=== PATIENT | male | born 1955 | race Caucasian/White ===

== ENCOUNTER 2019-12-09 11:04 | Inpatient (IN) | payer MEDICARE, MEDICAID, SELFPAY ==
[2019-12-09] VITALS (8 sets, daily range): BP systolic 93–137; BP diastolic 48–86; PULSE 66–102; RESP 16–24; TEMP 36.7–38.8; O2SAT 87–100; BMI 28.4; BMI 28.3
--- NOTE | 2019-12-09 11:38 | XR_ITS ---
EXAMINATION: XR CHEST CLINICAL INFORMATION: Fever. Concern for pneumonia. COMPARISON: CT chest 07/23/2019 TECHNIQUE: Frontal view of the chest was obtained. FINDINGS: There is a patchy density seen in the right upper mid and lower lobe suggestive of likely new patchy infiltrates. The left lung remains clear. Heart size and pulmonary vascularity is normal. No gross bony abnormality seen. IMPRESSION: Patchy right lung infiltrate.
--- NOTE | 2019-12-09 11:40 | ED.NAVMDI ---
HPI - Nausea/Vomiting/Diarrhea General Chief complaint: Nausea/Vomiting/Diarrhea Stated complaint: N/V FOR HOURS, UNABLE TO KEEP ANYTHING DOWN Time Seen by Provider: 12/09/19 11:12 Source: EMS Mode of arrival: EMS Limitations: physical limitation and other (non-verbal at baseline) History of Present Illness HPI Narrative: 64 y/o male with history of seizures, psychosis, BPH, GERD, seizures, hx asp pna, constipation who is non-verbal at baseline is presenting with vomiting from assisted living. He was noted to be febrile to 101 on arrival with SpO2 92%. He is intermittently coughing. Concern for possible aspiration pneumonia. History is very limited. MD elicited complaint: nausea and vomiting Associated nausea: Yes Related Data Allergies Allergy/AdvReac Type Severity Reaction Status Date / Time haloperidol [From HALDOL] AdvReac Unknown UNKNOWN Verified 12/09/19 11:22 metoclopramide [From REGLAN] AdvReac Unknown UNKNOWN Verified 12/09/19 11:22 Review of Systems Review of Systems: Yes Unobtainable due to mental condition and Unobtainable due to mental status Gastrointestinal: Gastrointestinal: Reports nausea PMFSH Past Medical History Medical History Anemia Bipolar 1 disorder Chronic renal disease GERD (gastroesophageal reflux disease) Hiatal hernia Hydrocele Hyperlipemia Hypertension OCD (obsessive compulsive disorder) Social History Social History Alcohol intake: never Smoking Status: Unknown if ever smoked Use of substances other than those prescribed or required for medical reasons: No Advance Directives: No Advance Directives Information Provided: No Physical Exam Vital Signs: Vital Signs: Vital Signs Temp Pulse Resp BP Pulse Ox 12/09/19 14:43 79 93/53 L 95 12/09/19 12:20 24 H 94 12/09/19 12:19 101.9 F H 96 100/48 L 87 L 12/09/19 11:23 101 F H 102 H 18 111/65 92 Body Mass Index 28.4 Appearance: Alert. Shaking chills. Eyes: Pupils equal, round and reactive to light. ENT: enlarged lower lip with tongue protrusion which appears chronic, dry mucus membranes, Neck: Normal inspection. Neck supple. CVS: rapid rate, regular rhythm, Pulses normal. Respiratory: No respiratory distress. Breath sounds diminished throughout Abdomen: Softly distended and nontender. +BS x4 Skin: Skin warm and dry. Normal skin color. Normal skin turgor. No rashes. Extremities: No lower extremity edema. all 4 extremities are contracted Neuro: awake and alert, tracks, does not follow commands or verbally respond Course Course Course Narrative: 64 y/o male non-verbal with history of asp pna presenting with N/V and fever 101. Coughing with SpO2 92% on arrival. Concern for recurrent asp pna. Gastroenteritis vs colitis also a possibility. Exam reveals swollen and taught scrotum wtih mild erythema, history of hydrocele. Will get U/S to assess for epididymitis as well. IV vanco/zosyn ordered for broad coverage and IVF sepsis bolus given. Labs and CXR pending. Reevaluation(s) Reevaluation #1: CXR showing RLL infiltrate, concerning for aspiration pneumonia. He has been adequately covered wtih vanco/zosyn. Will proceed with CT C/A/P given history of bowel obstructions in the past leading to vomiting. His abdomen is distended but soft on exam. Time: 13:50 Reevaluation #2: CT scan showing right sided PNA with loss of right lung volume. COVID was negative. He remains on 2L NC. SBP soft in the 90's IVF infusing. CT scan abd showed distended small bowel loops with air-fluid levels and fluid within the sigmoid colon likely ileus or anorectal narrowing or stricture. Correlate with digital exam or rectal catheter. Similar findings were seen on the previous exam 07/23/2019. Rectal exam performed and no stricture was appreciated. Hospitalist called for admission. Time: 14:58 MDM - Nausea/Vomiting/Diarrhea Lab Data Result diagrams: 12/09/19 12:02 12/09/19 12:01 Labs: Lab Results 12/09/19 12/09/19 12/09/19 Range/Units 12:01 12:01 12:02 WBC 7.9 (4.8-10.8) X10*3/uL RBC 3.90 L (4.60-5.80) X10*6/uL Hgb 11.7 L (14.0-18.0) g/dl Hct 36.2 L (42-52) % MCV 92.8 (80-98) fL MCH 30.0 (27.0-33.0) pg MCHC 32.3 (31.0-36.0) g/dl RDW 16.0 (11.0-16.0) % Plt Count 232 (160-400) X10*3/uL MPV 9.1 L (9.4-12.4) fL Immature Gran % (Auto) 0.4 (0.0-0.4) % Neut % (Auto) 91.4 H (45-73) % Lymph % (Auto) 3.5 L (20-40) % [place] % (Auto) 4.3 (2-11) % Eos % (Auto) 0.1 (0-4) % Baso % (Auto) 0.3 (0-2) % Lymph # (Auto) 0.3 L (1.2-4.9) X10*3/uL [place] # (Auto) 0.3 (0.1-1.2) X10*3/uL Eos # (Auto) 0.0 (0.0-0.4) X10*3/uL Baso # (Auto) 0.0 (0.0-0.2) X10*3/uL Abs Immat Gran (auto) 0.03 (0.00-0.03) X10*3/uL Absolute Neuts (auto) 7.2 (2.0-8.3) X10*3/uL Absolute Nucleated RBC 0.000 (0.0-0.012) X10*3/uL Nucleated RBC % (auto) 0.0 (0.0-0.2) /100WBC Smear Tech's Comments VERIFIED Sodium Cancelled 144 Potassium Cancelled 4.1 Chloride Cancelled 102 Carbon Dioxide Cancelled 30 H Anion Gap Cancelled 16 BUN Cancelled 26 H Creatinine Cancelled 1.26 Estim Creat Clear Calc Cancelled 47.2 Estimated GFR Cancelled 58 Random Glucose Cancelled 73 Lactic Acid (0.5-2.0) mmol/L Calcium Cancelled 9.4 Magnesium 2.4 (1.6-2.6) mg/dL Total Bilirubin Cancelled 0.2 Direct Bilirubin Cancelled < 0.2 AST Cancelled 20 ALT Cancelled 14 Alkaline Phosphatase Cancelled 108 Total Protein Cancelled 9.1 H Albumin Cancelled 3.9 Lipase 24 (8-78) U/L Coronavirus (PCR) (Negative) 12/09/19 12/09/19 12/09/19 Range/Units 12:02 12:02 12:42 WBC Cancelled (4.8-10.8) X10*3/uL RBC Cancelled (4.60-5.80) X10*6/uL Hgb Cancelled (14.0-18.0) g/dl Hct Cancelled (42-52) % MCV Cancelled (80-98) fL MCH Cancelled (27.0-33.0) pg MCHC Cancelled (31.0-36.0) g/dl RDW Cancelled (11.0-16.0) % Plt Count Cancelled (160-400) X10*3/uL MPV Cancelled (9.4-12.4) fL Immature Gran % (Auto) Cancelled (0.0-0.4) % Neut % (Auto) Cancelled (45-73) % Lymph % (Auto) Cancelled (20-40) % [place] % (Auto) Cancelled (2-11) % Eos % (Auto) Cancelled (0-4) % Baso % (Auto) Cancelled (0-2) % Lymph # (Auto) Cancelled (1.2-4.9) X10*3/uL [place] # (Auto) Cancelled (0.1-1.2) X10*3/uL Eos # (Auto) Cancelled (0.0-0.4) X10*3/uL Baso # (Auto) Cancelled (0.0-0.2) X10*3/uL Abs Immat Gran (auto) Cancelled (0.00-0.03) X10*3/uL Absolute Neuts (auto) Cancelled (2.0-8.3) X10*3/uL Absolute Nucleated RBC Cancelled (0.0-0.012) X10*3/uL Nucleated RBC % (auto) Cancelled (0.0-0.2) /100WBC Smear Tech's Comments Sodium Potassium Chloride Carbon Dioxide Anion Gap BUN Creatinine Estim Creat Clear Calc Estimated GFR Random Glucose Lactic Acid 2.1 H* (0.5-2.0) mmol/L Calcium Magnesium (1.6-2.6) mg/dL Total Bilirubin Direct Bilirubin AST ALT Alkaline Phosphatase Total Protein Albumin Lipase (8-78) U/L Coronavirus (PCR) NEGATIVE (Negative) Discharge Plan Discharge Clinical Impression: Aspiration pneumonia Patient Disposition: Admitted As Inpatient
--- NOTE | 2019-12-09 11:56 | US_ITS ---
EXAMINATION: US SCROTUM CLINICAL INFORMATION: Fever, scrotal swelling. COMPARISON: CT pelvis 12/09/2019 TECHNIQUE: A sonogram of the scrotum was performed assessing davis-scale appearance and color Doppler flow. Spectral Doppler analysis of the arterial and venous flow were performed in the testes bilaterally. FINDINGS: RIGHT: Right testicle measures 1.9 x 0.9 x 1.7 cm, volume 2 mL. The right testis is atrophic. There is no intratesticular mass. There is color flow seen within the testis. Optimal spectral waveforms are difficult to obtain. Right epididymis unremarkable. No hydrocele or varicocele appreciated. LEFT: Left testicle measures 5.0 x 1.9 x 2.1 cm, volume 11 mL. No focal testicular parenchymal lesions are visualized. No intratesticular mass. There is normal color flow and spectral waveform. There is a large hydrocele, approximately 7 x 7 x 11 cm. The testis is displaced to the periphery. The epididymis is not seen with certainty. Small scrotal sadie suggested during scanning. No visible varicocele. SCROTAL SKIN: No edema tracking in soft tissue planes. No dermal shadowing to suggest soft tissue gas. IMPRESSION: 1. Large left hydrocele approximately 7 x 7 x 11 cm. Unremarkable left testis. 2. Atrophic right testicle, 2 mL volume. 3. No edema or gas seen in scrotal skin.
[2019-12-09] MEDS: Acetaminophen Supp 650 MG SUPP.RECT PR (12:06)
[2019-12-09] MEDS: ondansetron HCL 4 MG/2 ML VIAL IVPUSH (12:06)
[2019-12-09] MEDS: 0.9 % Sodium Chloride 2,000 ML 999 ML IV (12:06)
[2019-12-09] MEDS: 0.9 % Sodium Chloride 1,000 ML 999 ML IVCONT ×2 (12:07→19:14)
[2019-12-09] MEDS: Piperacillin Sodium/Tazobactam 4.5 GM in 0.9 % Sodium Chloride 100 ML IV (12:09)
[2019-12-09 12:13] LABS: Basophils Percent Auto 0.3 % (0-2); Eosinophils Percent Auto 0.1 % (0-4); Hematocrit 36.2 % (42-52); Hemoglobin 11.7 g/dl (14.0-18.0); Imm Gran Abs Auto 0.03 X10*3/uL (0.00-0.03); Imm Gran Pct Auto 0.4 % (0.0-0.4); Lymphocytes Absolute Auto 0.3 X10*3/uL (1.2-4.9); Lymphocytes Percent Auto 3.5 % (20-40); MANUAL DIFF FLAG SCAN; Mean Corpuscular HGB Conc 32.3 g/dl (31.0-36.0); Mean Corpuscular Volume 92.8 fL (80-98); Mean Platelet Volume 9.1 fL (9.4-12.4); Monocytes Absolute Auto 0.3 X10*3/uL (0.1-1.2); Monocytes Percent Auto 4.3 % (2-11); Neutrophils Absolute Auto 7.2 X10*3/uL (2.0-8.3); Neutrophils Percent Auto 91.4 % (45-73); Platelet Count 232 X10*3/uL (160-400); SCAN SMEAR FLAG 1; White Blood Count 7.9 X10*3/uL (4.8-10.8)
[2019-12-09 12:42] LABS: Alanine Aminotransferase 14 U/L (0-40); Albumin Level 3.9 g/dL (3.5-5.0); Alkaline Phosphatase 108 U/L (39-117); Anion Gap 16 (12-20); Aspartate Amino Transferase 20 U/L (5-37); Bilirubin Direct < 0.2 mg/dL (0.0-0.5); Bilirubin Total 0.2 mg/dL (0.0-1.0); Blood Urea Nitrogen 26 mg/dL (9-16); Calcium 9.4 mg/dL (8.4-10.2); Carbon Dioxide 30 mmol/L (22-29); Chloride 102 mmol/L (96-108); Creatinine Clr Calc Pharmacy 47.2; Estimated Glomerular Filt Rate 58; Glucose Random 73 mg/dL (60-115); Magnesium 2.4 mg/dL (1.6-2.6); Potassium 4.1 mmol/l (3.3-5.1); Sodium 144 mmol/L (135-145); Total Protein 9.1 g/dL (6.5-8.0)
--- NOTE | 2019-12-09 12:43 | CT_ITS ---
EXAMINATION: CT CHEST, ABDOMEN AND PELVIS WITHOUT CONTRAST. CLINICAL INFORMATION: Fever, aspiration. COMPARISON: CT chest, abdomen and pelvis 07/23/2019. TECHNIQUE: 5 mm thin axial and reformatted 3 mm thin sagittal and coronal images of chest, abdomen and pelvis were obtained without contrast dated DLP 365. FINDINGS: CHEST: There is a loss of right lung volume with diffuse patchy groundglass infiltrates throughout the right lung slightly worse compared to previous study. There is patchy confluent infiltrates in the right lower lobe progressively worse compared to 07/23/2019. Superimposed aspiration pneumonia cannot be excluded. The left lung is well-expanded and clear of acute process. There is a 3 minute nodule along the left superior major fissure axial image 157/9. No additional nodules seen. There is no pleural effusion, thickening or calcification. The thyroid lobes are symmetric and normal. The central trachea and the bronchi widely patent. Heart size and the great vessels are normal caliber. There is a small reactive right pretracheal 1.1 cm lymph node axial image 22/5. No pericardial effusion seen. No abnormal lymph nodes seen in the axilla. There is diminutive right anterior chest wall secondary to loss of right lung volume. Bone windows reveal no lytic or sclerotic process seen. There is moderate ventral spondylosis throughout mid and lower dorsal spine. No lytic process. ABDOMEN AND PELVIS: The liver is homogeneous in density, normal size, shape and position. No focal lesion or intrahepatic ductal dilatation seen. Visualized spleen, pancreas and bilateral adrenal glands are unremarkable. Both kidneys are normal size, shape and position. There are punctate radiopaque calculi midpole and lower pole right kidney without caliectasis or hydronephrosis. The abdominal aorta is normal caliber. No retroperitoneal lymph nodes or mass seen. There are multiple dilated loops of distal small bowel/colon in the midabdomen extending into the rectal region where there is fluid filled distended rectum and sigmoid colon. Question anorectal stricture or narrowing. Patient is status post colectomy with anastomotic suture line along the sigmoid with small bowel The small bowel loops are normal caliber. Appendix is not visualized no free air or free fluid. Imaging to the pelvis reveals a nondistended urinary bladder to be unremarkable. There are small inguinal hernia containing soft tissue density. Rest of the anterior wall is unremarkable. Bone windows reveal no lytic or sclerotic process. There is minimal positional scoliosis. IMPRESSION: Loss of right lung volume with a patchy groundglass attenuation seen lung consistent with small airway disease. There is focal patchy consolidation right lower lobe new since the previous study suggestive of superimposed infiltrates. The left lung remains clear except for a tiny fissural nodule or lymph node. Reactive lymph node pretracheal space. No pleural effusion or thickening. Distended small bowel loops with air-fluid levels and fluid within the sigmoid colon likely ileus or anorectal narrowing or stricture. Correlate with digital exam or rectal catheter. Similar findings were seen on the previous exam 07/23/2019. Punctate nonobstructive radiopaque calculi mid and lower pole right kidney. These are stable to previous study. No free air or free fluid seen.
[2019-12-09 12:44] LABS: Lipase 24 U/L (8-78)
[2019-12-09 12:52] LABS: SLIDE REVIEW VERIFIED
--- NOTE | 2019-12-09 12:57 | PC.NURSE ---
pt off to ct
[2019-12-09 12:59] LABS: Lactic Acid 2.1 mmol/L (0.5-2.0)
[2019-12-09] MEDS: vancomycin HCL 1,000 MG in 0.9 % Sodium Chloride 250 ML 270 MG IV (13:40)
[2019-12-09 14:04] LABS: Reflex Lactate? Lactic Acid Added
[2019-12-09 14:09] LABS: SARS COV2 PCR INHOUSE NEGATIVE (Negative)
--- NOTE | 2019-12-09 17:21 | PM.IMHP ---
History of Present Illness Date of Service: 12/09/19 Chief Complaint: Vomiting This is a 64-year-old nonverbal male at baseline from [facility] who presents to the hospital accompanied by [facility] staff would reports of sudden onset of nausea and nonbloody / nonbilious vomiting which began on the day of admission. Patient does have a history of small-bowel obstruction, megacolon, chronic constpiation resulting in recurrent episodes of nausea and vomiting and subsequent aspiration pneumonia. He has been admitted to [facility] at least 3 or 4 times for the same reason. He is unable to provide any meaningful history and so history is obtained from bedside [facility] staff. She reports that she has been with him over the last several days and he has been at his baseline self particularly in regards to his bowel movements. There was no reports of any nausea or vomiting prior to this morning. Reports of any fevers or respiratory symptoms. Upon arrival to the emergency room, patient underwent basic workup which included a CT scan of the abdomen pelvis and chest. CT abdomen of the pelvis showed likely ileus but no symptoms to suggest small-bowel obstruction. CT of the chest showed right-sided opacities consistent with aspiration pneumonia. He was given broad-spectrum antibiotics and admission was requested. Review of Systems Review of Systems: Unable to perform review of systems, patient nonverbal [facility] Medical History (Updated 12/09/19 @ 17:33 by Valentín Manrique MD) Anemia Bipolar 1 disorder Chronic renal disease GERD (gastroesophageal reflux disease) Hiatal hernia Hydrocele Hyperlipemia Hypertension OCD (obsessive compulsive disorder) Pertinent family history: unable to review family history due to patient being nonverbal Surgical History (Updated 12/09/19 @ 17:30 by Valentín Manrique MD) H/O exploratory laparotomy History of colectomy Social History Alcohol intake: never Smoking Status: Unknown if ever smoked Use of substances other than those prescribed or required for medical reasons: No Advance Directives: No Advance Directives Information Provided: No Meds Allergies Allergy/AdvReac Type Severity Reaction Status Date / Time haloperidol [From HALDOL] AdvReac Unknown UNKNOWN Verified 12/09/19 11:22 metoclopramide [From REGLAN] AdvReac Unknown UNKNOWN Verified 12/09/19 11:22 Physical Exam Vital Signs and Narrative: Vital Signs: Last Vital Signs Temp 98.8 F 12/09/19 16:00 Pulse 91 12/09/19 16:00 Resp 16 12/09/19 16:00 BP 105/62 12/09/19 16:00 Pulse Ox 92 12/09/19 16:00 Body Mass Index 28.4 General - no acute distress, appears comfortable Cardiovascular - regular rate and rhythm, S1-S2 Lungs - diminished sounds on the R with scattered mild wheezing, no rales or rhonchi; L lung relatively CTA Abdomen - mild distension without rebound or guarding; hypoactive bowel sounds Extremities - no edema bilaterally Neuro - awake and alert, non-verbal skin - warm/dry Results Labs Labs: Laboratory Results - last 24 hr 12/09/19 12/09/19 12/09/19 12:01 12:01 12:02 WBC 7.9 RBC 3.90 L Hgb 11.7 L Hct 36.2 L MCV 92.8 MCH 30.0 MCHC 32.3 RDW 16.0 Plt Count 232 MPV 9.1 L Immature Gran % (Auto) 0.4 Neut % (Auto) 91.4 H Lymph % (Auto) 3.5 L [place] % (Auto) 4.3 Eos % (Auto) 0.1 Baso % (Auto) 0.3 Lymph # (Auto) 0.3 L [place] # (Auto) 0.3 Eos # (Auto) 0.0 Baso # (Auto) 0.0 Abs Immat Gran (auto) 0.03 Absolute Neuts (auto) 7.2 Absolute Nucleated RBC 0.000 Nucleated RBC % (auto) 0.0 Smear Tech's Comments VERIFIED Sodium Cancelled 144 Potassium Cancelled 4.1 Chloride Cancelled 102 Carbon Dioxide Cancelled 30 H Anion Gap Cancelled 16 BUN Cancelled 26 H Creatinine Cancelled 1.26 Estim Creat Clear Calc Cancelled 47.2 Estimated GFR Cancelled 58 Random Glucose Cancelled 73 Lactic Acid Calcium Cancelled 9.4 Magnesium 2.4 Total Bilirubin Cancelled 0.2 Direct Bilirubin Cancelled < 0.2 AST Cancelled 20 ALT Cancelled 14 Alkaline Phosphatase Cancelled 108 Total Protein Cancelled 9.1 H Albumin Cancelled 3.9 Lipase 24 Coronavirus (PCR) 12/09/19 12/09/19 12/09/19 12:02 12:02 12:42 WBC Cancelled RBC Cancelled Hgb Cancelled Hct Cancelled MCV Cancelled MCH Cancelled MCHC Cancelled RDW Cancelled Plt Count Cancelled MPV Cancelled Immature Gran % (Auto) Cancelled Neut % (Auto) Cancelled Lymph % (Auto) Cancelled [place] % (Auto) Cancelled Eos % (Auto) Cancelled Baso % (Auto) Cancelled Lymph # (Auto) Cancelled [place] # (Auto) Cancelled Eos # (Auto) Cancelled Baso # (Auto) Cancelled Abs Immat Gran (auto) Cancelled Absolute Neuts (auto) Cancelled Absolute Nucleated RBC Cancelled Nucleated RBC % (auto) Cancelled Smear Tech's Comments Sodium Potassium Chloride Carbon Dioxide Anion Gap BUN Creatinine Estim Creat Clear Calc Estimated GFR Random Glucose Lactic Acid 2.1 H* Calcium Magnesium Total Bilirubin Direct Bilirubin AST ALT Alkaline Phosphatase Total Protein Albumin Lipase Coronavirus (PCR) NEGATIVE Imaging CT scan - chest: Radiologist's impression: IMPRESSION: Loss of right lung volume with a patchy groundglass attenuation seen lung consistent with small airway disease. There is focal patchy consolidation right lower lobe new since the previous study suggestive of superimposed infiltrates. The left lung remains clear except for a tiny fissural nodule or lymph node. Reactive lymph node pretracheal space. No pleural effusion or thickening. Distended small bowel loops with air-fluid levels and fluid within the sigmoid colon likely ileus or anorectal narrowing or stricture. Correlate with digital exam or rectal catheter. Similar findings were seen on the previous exam 07/23/2019. Punctate nonobstructive radiopaque calculi mid and lower pole right kidney. These are stable to previous study. No free air or free fluid seen. Assessment and Plan (1) Aspiration pneumonia: Status: Acute (2) Severe sepsis: Status: Acute This is a 64-year-old male with a known medical history of multiple admissions relating to his chronic abdominal issues resulting in nausea and vomiting with subsequent aspiration pneumonia. He now presents with basically the same and is admitted for severe sepsis secondary to aspiration pneumonia. 1. severe sepsis secondary to aspiration pneumonia Sepsis present in ED Received 3 L IV fluids in the ED, repeat lactate pending Given vancomycin and Zosyn in the emergency room, will switch to IV Unasyn follow cultures 2. Ileus bowel regiment keep NPO tonight, diet tomorrow after being seen by speech / swallow monitor lytes will consider surgery consult if no improvement 3. Dehydration given 3L IVF in the ED, will continue with Maintenance fluids 3. Chronic medical issues med rec pending -- continue meds once completed Full Code DVT pptx, heparin HCP is sister as reported by intermediate staff
[2019-12-09 18:08] LABS: Lactic Acid 1.1 mmol/L (0.5-2.0)
[2019-12-09 18:58] LABS: Procalcitonin 0.19 ng/mL
[2019-12-09] MEDS: Ampicillin Sodium/Sulbactam Na 3 GM in 0.9 % Sodium Chloride 100 ML IV (21:35)
[2019-12-09] MEDS: Heparin Sodium,Porcine 5,000 UNIT/ML VIAL 5000 UNIT SUBCUT (21:37)
[2019-12-09] MEDS: Dextrose 5 % and 0.45 % NaCl 1,000 ML 80 ML IVCONT (21:37)
[2019-12-10] VITALS (7 sets, daily range): BP systolic 104–116; BP diastolic 60–81; PULSE 62–85; RESP 16–18; TEMP 36.3–37; O2SAT 91–97
[2019-12-10] MEDS: Ampicillin Sodium/Sulbactam Na 3 GM in 0.9 % Sodium Chloride 100 ML IV ×4 (04:33→21:07)
[2019-12-10] MEDS: Heparin Sodium,Porcine 5,000 UNIT/ML VIAL 5000 UNIT SUBCUT ×3 (04:47→21:08)
[2019-12-10 06:37] LABS: Hematocrit 28.6 % (42-52); Hemoglobin 9.1 g/dl (14.0-18.0); Mean Corpuscular HGB Conc 31.8 g/dl (31.0-36.0); Mean Corpuscular Volume 94.4 fL (80-98); Mean Platelet Volume 9.9 fL (9.4-12.4); Platelet Count 199 X10*3/uL (160-400); Red Blood Count 3.03 X10*6/uL (4.60-5.80); Red Cell Distribution Width 16.3 % (11.0-16.0); White Blood Count 10.7 X10*3/uL (4.8-10.8)
[2019-12-10 07:16] LABS: Anion Gap 12 (12-20); Blood Urea Nitrogen 19 mg/dL (9-16); Calcium 8.3 mg/dL (8.4-10.2); Carbon Dioxide 24 mmol/L (22-29); Chloride 111 mmol/L (96-108); Creatinine Clr Calc Pharmacy 61.8; Estimated Glomerular Filt Rate > 60; Glucose Random 67 mg/dL (60-115); Potassium 4.4 mmol/l (3.3-5.1); Sodium 143 mmol/L (135-145)
[2019-12-10 07:43] LABS: Band Neutrophils Percent 21 % (3-5); Lymphocytes Absolute Manual 0.6 X10*3/uL (0.6-4.8); Lymphocytes Percent Manual 6 % (20-40); Monocytes Absolute Manual 0.2 X10*3/uL (0.0-1.2); Monocytes Percent Manual 2 % (2-11); Neutrophils Absolute Manual 9.8 X10*3/uL (2.2-7.9); Neutrophils Percent Manual 71 % (45-73)
[2019-12-10 07:44] LABS: Macrocytosis 1+; RBC Morphology NOTED
[2019-12-10 07:45] LABS: Hypochromasia 1+; Platelet Estimate NORMAL (NORMAL); Platelet Morphology Comment NORMAL
[2019-12-10] MEDS: Dextrose 5 % and 0.45 % NaCl 1,000 ML 80 ML IVCONT (10:19)
--- NOTE | 2019-12-10 15:03 | P.PNIM_ITS ---
Subjective Subjective Date of Service: 12/10/19 Interval History: seen and examined this Am no n/v reported by medical staff credentialing coordinator pt remains non-verbal, but appears overall improved Review of Systems unable to ROS, pt non-verbal Physical Exam Vital Signs: Vital Signs: Vital Signs Temp Pulse Resp BP Pulse Ox 12/10/19 12:00 97.8 F 68 18 116/62 91 L 12/10/19 08:00 97.3 F 71 18 109/62 91 L 12/10/19 04:31 97.6 F 62 18 105/66 96 12/10/19 04:30 97.6 F 62 18 105/66 96 12/10/19 00:00 97.4 F 85 18 104/60 97 12/09/19 22:15 98.0 F 70 20 102/67 96 12/09/19 20:19 98.4 F 70 18 111/70 100 12/09/19 19:07 98.7 F 66 17 102/64 97 12/09/19 16:00 98.8 F 91 16 105/62 92 Body Mass Index 28.3 General - no acute distress, appears comfortable Cardiovascular - regular rate and rhythm, S1-S2 Lungs - no idstress, dim sounds Abdomen - distension improved, non-tender Extremities - no edema bilaterally Neuro - awake and alert, non-verbal skin - warm/dry Objective Data Current Medications Generic Name Dose Route Start Last Admin Trade Name Freq PRN Reason Stop Dose Admin Acetaminophen 650 mg 12/09/19 20:21 Acetaminophen Supp 650 Mg Supp.Rect NV Q6H PRN Pain, Mild (Pain Scale 1-3) Heparin Sodium (Porcine) 5,000 unit 12/09/19 22:00 12/10/19 14:49 Heparin Sodium,Porcine 5,000 Unit/Ml Vial SUBCUT 5,000 unit Q8H RODOLFO Administration Ampicillin Sodium/Sulbactam 100 mls @ 200 mls/hr 12/09/19 22:00 12/10/19 12:01 Sodium 3 gm/ Sodium Chloride IV Infused Q6H RODOLFO Infusion Dextrose/Sodium Chloride 1,000 mls @ 80 mls/hr 12/09/19 20:21 12/10/19 10:19 D51/2ns IVCONT 80 mls/hr .[id number] RODOLFO Administration Ondansetron HCl 4 mg 12/09/19 20:21 Ondansetron Hcl 4 Mg/2 Ml Vial IVPUSH Q8H PRN Nausea and Vomiting Pharmacy Consult 1 each 12/09/19 20:21 Consult Rx Perform Med Rec MISCELLANE ONCE PRN Consult order Sodium Chloride 3 ml 12/10/19 00:00 12/10/19 14:49 0.9 % Sodium Chloride Flush 3 Ml Syringe IVFLUSH Not Given QSHIFT RODOLFO Labs CBC & Chem 7: 12/10/19 05:38 12/10/19 05:38 Microbiology Microbiology Results: Microbiology 12/09/19 12:03 Blood - Venous Blood Culture - Preliminary No growth after 24 hours. 12/09/19 12:01 Blood - Venous Blood Culture - Preliminary No growth after 24 hours. Assessment and Plan (1) Aspiration pneumonia: Status: Acute Assessment and Plan: This is a 64-year-old male with a known medical history of multiple admissions relating to his chronic abdominal issues resulting in nausea and vomiting with subsequent aspiration pneumonia. He now presents with basically the same and is admitted for severe sepsis secondary to aspiration pneumonia. 1. severe sepsis secondary to aspiration pneumonia and resp. failure with hypoxia sepsis resolving, lactate normalized IV unasyn follow cultures wean o2 2. Ileus bowel regiment monitor lytes will consider surgery consult if no improvement start diet, pureed -- speech input appreciated 3. Dehydration improved, continue d5-1/2 ns until eating properly 3. Chronic medical issues med rec pending -- continue meds once completed Full Code DVT pptx, heparin HCP is sister as reported by residential staff (2) Severe sepsis: Status: Acute
--- NOTE | 2019-12-10 15:20 | MHC.CM.PN ---
Pt resides in a snf and requires assistance with care and mobility. Pt requires a gait belt and 2 assist to ambulate. CM spoke to Davi at pts snf who reports staff can transport pt back upon discharge CM attempted to reach pts guardians. Primary guardian, Aleksandra Henriquez has an out of order phone number listed ([phone]). A vm was left for pts secondary guardian, Sherry Mcconnell ([phone]). VM including pts medicare rights and CM contact information. Current DC plan is to return to the snf via snf staff
[2019-12-10] MEDS: Milk of Magnesia 30 ML ORAL.SUSP PO (21:06)
[2019-12-10] MEDS: OLANZapine 10 MG TABLET 20 MG PO (21:07)
[2019-12-10] MEDS: 0.9 % Sodium Chloride Flush 3 ML SYRINGE IVFLUSH (21:08)
[2019-12-11] VITALS: BP 104/54; PULSE 76; RESP 18; TEMP 36.8; O2SAT 94
[2019-12-11] MEDS: Dextrose 5 % and 0.45 % NaCl 1,000 ML 80 ML IVCONT (00:49)
[2019-12-11 03:10] VITALS: BP 114/59; PULSE 65; RESP 18; TEMP 36.9; O2SAT 97
[2019-12-11] MEDS: Ampicillin Sodium/Sulbactam Na 3 GM in 0.9 % Sodium Chloride 100 ML IV ×2 (05:22→09:14)
[2019-12-11] MEDS: Heparin Sodium,Porcine 5,000 UNIT/ML VIAL 5000 UNIT SUBCUT (05:23)
[2019-12-11] MEDS: Omeprazole 20 MG CAPSULE.DR 40 MG PO (05:23)
[2019-12-11 06:11] VITALS: O2SAT 97
[2019-12-11 08:00] VITALS: BP 106/58; PULSE 84; RESP 18; TEMP 36.4; O2SAT 93
[2019-12-11] MEDS: OLANZapine 10 MG TABLET PO (09:14)
[2019-12-11] MEDS: Loratadine 10 MG TABLET PO (09:14)
[2019-12-11] MEDS: Docusate Sodium 100 MG CAPSULE 200 MG PO (09:14)
[2019-12-11] MEDS: Escitalopram Oxalate 10 MG TABLET 30 MG PO (09:14)
[2019-12-11] MEDS: polyethylene glycoL 3350 17 GM POWD.PACK PO (09:15)
[2019-12-11] MEDS: Finasteride 5 MG TABLET PO (09:15)
[2019-12-11 11:02] VITALS: O2SAT 92
--- NOTE | 2019-12-11 11:18 | P.DS_ITS ---
DS: Providers Provider Date of admission: 12/09/19 17:43 Primary care physician: Tomy Rangel MD DS: Diagnosis Discharge Diagnosis (1) Severe sepsis: Status: Acute (2) Aspiration pneumonia: Status: Acute (3) Ileus: Status: Acute (4) Dehydration: Status: Acute DS: Summary Hospital Course Hospital Course: HPI: This is a 64-year-old nonverbal male at baseline from intermediate who presents to the hospital accompanied by intermediate staff would reports of sudden onset of nausea and nonbloody / nonbilious vomiting which began on the day of admission. Patient does have a history of small-bowel obstruction, megacolon, chronic constpiation resulting in recurrent episodes of nausea and vomiting and subsequent aspiration pneumonia. He has been admitted to [facility] at least 3 or 4 times for the same reason. He is unable to provide any meaningful history and so history is obtained from bedside intermediate staff. She reports that she has been with him over the last several days and he has been at his baseline self particularly in regards to his bowel movements. There was no reports of any nausea or vomiting prior to this morning. Reports of any fevers or respiratory symptoms. Upon arrival to the emergency room, patient underwent basic workup which included a CT scan of the abdomen pelvis and chest. CT abdomen of the pelvis showed likely ileus but no symptoms to suggest small-bowel obstruction. CT of the chest showed right-sided opacities consistent with aspiration pneumonia. He was given broad-spectrum antibiotics and admission was requested. Hospital course For his pneumonia -- patient was treated with IV unasyn and given supplemental o2 for his hypoxia. Over the course of 2 nights in the hospital, he had significant improvement in his respiratory status and was able to be wean to room air. He will be discharged home on PO Augmentin for aspiration pneumonia. For his ileus -- he was kept NPO over the first night and started on his usual bowel regime. His electrolytes were monitored and repleted as needed. He was initiated on his baseline diet -- pureed which he tolerated. With these measures, his ileus clinically resolved: he was tolearting diet without nausea/vomiting and moving his bowels, as well as less distention of his abdomen. He still remains as risk for recurrent aspiration which the family is aware of. Of note -- as part of this work up in the ED -- he underwent a scrotal ultrasound which showed a large L hydrocele. Patient did not have any tenderness and this can be followed clinically if indicated -- referral to urologist. Time Spent with Patient Time attestation: Total time spent providing and/or coordinating discharge services: Physical Exam Vital Signs: Vital Signs: Vital Signs Temp Pulse Resp BP Pulse Ox 12/11/19 11:02 92 12/11/19 08:00 97.6 F 84 18 106/58 L 93 12/11/19 06:11 97 12/11/19 03:10 98.5 F 65 18 114/59 L 97 12/11/19 00:00 98.3 F 76 18 104/54 L 94 12/10/19 19:13 98.0 F 72 18 112/60 12/10/19 15:26 98.6 F 74 16 110/81 93 12/10/19 12:00 97.8 F 68 18 116/62 91 L Body Mass Index 28.3 General - no acute distress, appears comfortable Cardiovascular - regular rate and rhythm, S1-S2 Lungs - normal respiratory effort, clear to auscultation bilaterally, slight dim sounds R, tolerating RA Abdomen - soft, NT, significantly less distension; +BS Extremities - no edema bilaterally Neuro - awake and alert, no focal deficits DS: Data Data Completed and Pending Labs on day of discharge: Lab Results 12/09/19 12/09/19 12/09/19 Range/Units 12:01 12:01 12:02 WBC 7.9 (4.8-10.8) X10*3/uL RBC 3.90 L (4.60-5.80) X10*6/uL Hgb 11.7 L (14.0-18.0) g/dl Hct 36.2 L (42-52) % MCV 92.8 (80-98) fL MCH 30.0 (27.0-33.0) pg MCHC 32.3 (31.0-36.0) g/dl RDW 16.0 (11.0-16.0) % Plt Count 232 (160-400) X10*3/uL MPV 9.1 L (9.4-12.4) fL Immature Gran % (Auto) 0.4 (0.0-0.4) % Neut % (Auto) 91.4 H (45-73) % Lymph % (Auto) 3.5 L (20-40) % Winkler % (Auto) 4.3 (2-11) % Eos % (Auto) 0.1 (0-4) % Baso % (Auto) 0.3 (0-2) % Lymph # (Auto) 0.3 L (1.2-4.9) X10*3/uL Winkler # (Auto) 0.3 (0.1-1.2) X10*3/uL Eos # (Auto) 0.0 (0.0-0.4) X10*3/uL Baso # (Auto) 0.0 (0.0-0.2) X10*3/uL Abs Immat Gran (auto) 0.03 (0.00-0.03) X10*3/uL Absolute Neuts (auto) 7.2 (2.0-8.3) X10*3/uL Absolute Nucleated RBC 0.000 (0.0-0.012) X10*3/uL Nucleated RBC % (auto) 0.0 (0.0-0.2) /100WBC Neutrophils % (Manual) (45-73) % Band Neutrophils % (3-5) % Lymphocytes % (Manual) (20-40) % Monocytes % (Manual) (2-11) % Abs Neuts (Manual) (2.2-7.9) X10*3/uL Lymphocytes # (Manual) (0.6-4.8) X10*3/uL Monocytes # (Manual) (0.0-1.2) X10*3/uL Platelet Estimate (NORMAL) Plt Morphology Comment RBC Morphology Hypochromasia Macrocytosis Smear Tech's Comments VERIFIED Sodium Cancelled 144 Potassium Cancelled 4.1 Chloride Cancelled 102 Carbon Dioxide Cancelled 30 H Anion Gap Cancelled 16 BUN Cancelled 26 H Creatinine Cancelled 1.26 Estim Creat Clear Calc Cancelled 47.2 Estimated GFR Cancelled 58 Random Glucose Cancelled 73 Lactic Acid (0.5-2.0) mmol/L Calcium Cancelled 9.4 Magnesium 2.4 (1.6-2.6) mg/dL Total Bilirubin Cancelled 0.2 Direct Bilirubin Cancelled < 0.2 AST Cancelled 20 ALT Cancelled 14 Alkaline Phosphatase Cancelled 108 Total Protein Cancelled 9.1 H Albumin Cancelled 3.9 Lipase 24 (8-78) U/L Procalcitonin ng/mL Coronavirus (PCR) (Negative) 12/09/19 12/09/19 12/09/19 Range/Units 12:02 12:02 12:42 WBC Cancelled (4.8-10.8) X10*3/uL RBC Cancelled (4.60-5.80) X10*6/uL Hgb Cancelled (14.0-18.0) g/dl Hct Cancelled (42-52) % MCV Cancelled (80-98) fL MCH Cancelled (27.0-33.0) pg MCHC Cancelled (31.0-36.0) g/dl RDW Cancelled (11.0-16.0) % Plt Count Cancelled (160-400) X10*3/uL MPV Cancelled (9.4-12.4) fL Immature Gran % (Auto) Cancelled (0.0-0.4) % Neut % (Auto) Cancelled (45-73) % Lymph % (Auto) Cancelled (20-40) % Winkler % (Auto) Cancelled (2-11) % Eos % (Auto) Cancelled (0-4) % Baso % (Auto) Cancelled (0-2) % Lymph # (Auto) Cancelled (1.2-4.9) X10*3/uL Winkler # (Auto) Cancelled (0.1-1.2) X10*3/uL Eos # (Auto) Cancelled (0.0-0.4) X10*3/uL Baso # (Auto) Cancelled (0.0-0.2) X10*3/uL Abs Immat Gran (auto) Cancelled (0.00-0.03) X10*3/uL Absolute Neuts (auto) Cancelled (2.0-8.3) X10*3/uL Absolute Nucleated RBC Cancelled (0.0-0.012) X10*3/uL Nucleated RBC % (auto) Cancelled (0.0-0.2) /100WBC Neutrophils % (Manual) (45-73) % Band Neutrophils % (3-5) % Lymphocytes % (Manual) (20-40) % Monocytes % (Manual) (2-11) % Abs Neuts (Manual) (2.2-7.9) X10*3/uL Lymphocytes # (Manual) (0.6-4.8) X10*3/uL Monocytes # (Manual) (0.0-1.2) X10*3/uL Platelet Estimate (NORMAL) Plt Morphology Comment RBC Morphology Hypochromasia Macrocytosis Smear Tech's Comments Sodium Potassium Chloride Carbon Dioxide Anion Gap BUN Creatinine Estim Creat Clear Calc Estimated GFR Random Glucose Lactic Acid 2.1 H* (0.5-2.0) mmol/L Calcium Magnesium (1.6-2.6) mg/dL Total Bilirubin Direct Bilirubin AST ALT Alkaline Phosphatase Total Protein Albumin Lipase (8-78) U/L Procalcitonin ng/mL Coronavirus (PCR) NEGATIVE (Negative) 12/09/19 12/09/19 12/10/19 Range/Units 17:36 18:17 05:38 WBC 10.7 (4.8-10.8) X10*3/uL RBC 3.03 L D (4.60-5.80) X10*6/uL Hgb 9.1 L D (14.0-18.0) g/dl Hct 28.6 L D (42-52) % MCV 94.4 (80-98) fL MCH 30.0 (27.0-33.0) pg MCHC 31.8 (31.0-36.0) g/dl RDW 16.3 H (11.0-16.0) % Plt Count 199 (160-400) X10*3/uL MPV 9.9 (9.4-12.4) fL Immature Gran % (Auto) Cancelled (0.0-0.4) % Neut % (Auto) Cancelled (45-73) % Lymph % (Auto) Cancelled (20-40) % Winkler % (Auto) Cancelled (2-11) % Eos % (Auto) Cancelled (0-4) % Baso % (Auto) Cancelled (0-2) % Lymph # (Auto) Cancelled (1.2-4.9) X10*3/uL Winkler # (Auto) Cancelled (0.1-1.2) X10*3/uL Eos # (Auto) Cancelled (0.0-0.4) X10*3/uL Baso # (Auto) Cancelled (0.0-0.2) X10*3/uL Abs Immat Gran (auto) Cancelled (0.00-0.03) X10*3/uL Absolute Neuts (auto) Cancelled (2.0-8.3) X10*3/uL Absolute Nucleated RBC 0.000 (0.0-0.012) X10*3/uL Nucleated RBC % (auto) 0.0 (0.0-0.2) /100WBC Neutrophils % (Manual) 71 (45-73) % Band Neutrophils % 21 H (3-5) % Lymphocytes % (Manual) 6 L (20-40) % Monocytes % (Manual) 2 (2-11) % Abs Neuts (Manual) 9.8 H (2.2-7.9) X10*3/uL Lymphocytes # (Manual) 0.6 (0.6-4.8) X10*3/uL Monocytes # (Manual) 0.2 (0.0-1.2) X10*3/uL Platelet Estimate NORMAL (NORMAL) Plt Morphology Comment NORMAL RBC Morphology NOTED Hypochromasia 1+ Macrocytosis 1+ Smear Tech's Comments Sodium Potassium Chloride Carbon Dioxide Anion Gap BUN Creatinine Estim Creat Clear Calc Estimated GFR Random Glucose Lactic Acid 1.1 (0.5-2.0) mmol/L Calcium Magnesium (1.6-2.6) mg/dL Total Bilirubin Direct Bilirubin AST ALT Alkaline Phosphatase Total Protein Albumin Lipase (8-78) U/L Procalcitonin 0.19 ng/mL Coronavirus (PCR) (Negative) 12/10/19 Range/Units 05:38 WBC (4.8-10.8) X10*3/uL RBC (4.60-5.80) X10*6/uL Hgb (14.0-18.0) g/dl Hct (42-52) % MCV (80-98) fL MCH (27.0-33.0) pg MCHC (31.0-36.0) g/dl RDW (11.0-16.0) % Plt Count (160-400) X10*3/uL MPV (9.4-12.4) fL Immature Gran % (Auto) (0.0-0.4) % Neut % (Auto) (45-73) % Lymph % (Auto) (20-40) % Winkler % (Auto) (2-11) % Eos % (Auto) (0-4) % Baso % (Auto) (0-2) % Lymph # (Auto) (1.2-4.9) X10*3/uL Winkler # (Auto) (0.1-1.2) X10*3/uL Eos # (Auto) (0.0-0.4) X10*3/uL Baso # (Auto) (0.0-0.2) X10*3/uL Abs Immat Gran (auto) (0.00-0.03) X10*3/uL Absolute Neuts (auto) (2.0-8.3) X10*3/uL Absolute Nucleated RBC (0.0-0.012) X10*3/uL Nucleated RBC % (auto) (0.0-0.2) /100WBC Neutrophils % (Manual) (45-73) % Band Neutrophils % (3-5) % Lymphocytes % (Manual) (20-40) % Monocytes % (Manual) (2-11) % Abs Neuts (Manual) (2.2-7.9) X10*3/uL Lymphocytes # (Manual) (0.6-4.8) X10*3/uL Monocytes # (Manual) (0.0-1.2) X10*3/uL Platelet Estimate (NORMAL) Plt Morphology Comment RBC Morphology Hypochromasia Macrocytosis Smear Tech's Comments Sodium 143 Potassium 4.4 Chloride 111 H Carbon Dioxide 24 Anion Gap 12 BUN 19 H Creatinine 0.96 Estim Creat Clear Calc 61.8 Estimated GFR > 60 Random Glucose 67 Lactic Acid (0.5-2.0) mmol/L Calcium 8.3 L Magnesium (1.6-2.6) mg/dL Total Bilirubin Direct Bilirubin AST ALT Alkaline Phosphatase Total Protein Albumin Lipase (8-78) U/L Procalcitonin ng/mL Coronavirus (PCR) (Negative) Imaging scrotal ultrasound: Radiologist's impression: IMPRESSION: 1. Large left hydrocele approximately 7 x 7 x 11 cm. Unremarkable left testis. 2. Atrophic right testicle, 2 mL volume. 3. No edema or gas seen in scrotal skin CT scan - chest: Radiologist's impression: IMPRESSION: Loss of right lung volume with a patchy groundglass attenuation seen lung consistent with small airway disease. There is focal patchy consolidation right lower lobe new since the previous study suggestive of superimposed infiltrates. The left lung remains clear except for a tiny fissural nodule or lymph node. Reactive lymph node pretracheal space. No pleural effusion or thickening. Distended small bowel loops with air-fluid levels and fluid within the sigmoid colon likely ileus or anorectal narrowing or stricture. Correlate with digital exam or rectal catheter. Similar findings were seen on the previous exam 07/23/2019. Punctate nonobstructive radiopaque calculi mid and lower pole right kidney. These are stable to previous study. No free air or free fluid seen. Discharge Plan Discharge Disposition: Home, Self-Care Referrals: Tomy Rangel MD [Primary Care Provider] - Discharge Medications: New amoxicillin-pot clavulanate [Augmentin] 875-125 mg tablet 1 tab PO Q12H Qty: 14 RF: 0 Continued Acid Gone Antacid 95-358 mg/15 mL suspension 10 ml PO QIDWMHS RF: 0 olanzapine 10 mg tablet 10 mg PO DAILY RF: 0 citalopram 20 mg tablet 60 mg PO DAILY RF: 0 doxazosin 8 mg tablet 8 mg PO BEDTIME RF: 0 magnesium hydroxide [Milk of Magnesia] 400 mg/5 mL suspension 30 ml PO BEDTIME RF: 0 valproic acid (as sodium salt) 250 mg/5 mL solution 1,000 mg PO BID RF: 0 docusate sodium 100 mg capsule 200 mg PO BID RF: 0 omeprazole 20 mg capsule,delayed release(DR/EC) 40 mg PO DAILY@0630 RF: 0 simethicone [Gas Relief (simethicone)] 40 mg/0.6 mL drops,suspension 40 mg PO TID@0800,1600,2000 RF: 0 polyethylene glycol 3350 17 gram/dose powder 17 g PO DAILY RF: 0 olanzapine 20 mg tablet 20 mg PO BEDTIME RF: 0 finasteride 5 mg tablet 5 mg PO DAILY RF: 0 loratadine 10 mg tablet 10 mg PO DAILY RF: 0 Amitiza 24 mcg capsule 24 mcg PO BID RF: 0 Best Fiber 3 gram/3.5 gram powder 1 packet PO BID RF: 0 Discharge Orders: Discharge Order (Routine); Ordered 12/11/19 Ordered By: Valentín Manrique Visit Report Forms: Patient Portal Discharge page Care Plan Goals: To continue feeling better. To minimize recurrent aspirations Health Concerns: Recurrent aspirations. Constipation / bowel issues. Plan of Treatment: Finish 7 more days of antibiotics. Continue usual stool Softeners / laxatives as before.
--- NOTE | 2019-12-11 12:26 | MHC.CM.PN ---
Pt cleared for discharge today. GLORIA spoke to long term nurse, Yanely who reports the medication forms are in pts room with the long term staff member who is at bedside. Yanely reports they only need one of the pages signed along with any new meds written in. She reports another long term staff member will be coming in soon with pts clothes and a gait belt so they can transport him home. GLORIA spoke to pts guardian, Sherry Mcconnell ([phone]) and informed her of pts discharge. GLORIA also reviewed pts medicare rights again and obtained an address so that a copy could be mailed to her. Guardians mailing address is: [address] [place] [address] [place] [address]
== END 2019-12-11 13:30 | disposition home or self-care (01) | DRG 871 ==
LOC: HO.ED 16:18 → HO.IMC 18:16
PROVIDERS: Physician Assistant; Admitting Provider Family Medicine; Emergency Provider Emergency Medicine; PCP Internal Medicine; Visit Provider Family Medicine
DX: A41.9 Sepsis, unspecified organism (principal); J69.0 Pneumonitis due to inhalation of food and vomit; K56.7 Ileus, unspecified; R65.20 Severe sepsis without septic shock; E78.5 Hyperlipidemia, unspecified; K21.9 Gastro-esophageal reflux disease without esophagitis; N43.3 Hydrocele, unspecified; E86.0 Dehydration; I10 Essential (primary) hypertension; F31.9 Bipolar disorder, unspecified; N40.0 Benign prostatic hyperplasia without lower urinary tract symptoms; Z20.828 Contact with and (suspected) exposure to other viral communicable diseases; Z79.899 Other long term (current) drug therapy
CPT/HCPCS: 36415; 71045; 71250; 74176; 76870; 80048; 80076; 83605; 83690; 83735; 84145; 85007; 85025; 85027; 87040; 87635; 92526; 92610; 96361; 96365; 96375; 99285; J2405; J2920

== ENCOUNTER 2020-01-07 12:21 | Emergency (ER) | payer MEDICARE, MEDICAID, SELFPAY ==
--- NOTE | 2020-01-07 12:32 | ED.FALL ---
HPI - Fall General Chief Complaint: Head Injury Stated Complaint: fall Time Seen by Provider: 01/07/20 12:32 Source: EMS and other (caregiver) Mode of arrival: EMS Limitations: other (cognitive impairment) History of Present Illness complaint: fall Onset (ago): minute(s) Fall from: other (from commode) Fall witnessed: yes, by living facility staff Place fall occurred: home Loss of consciousness: none Prolonged down time: no Symptoms prior to fall: none Context: history of frequent falls Related Data Home Medications Medication Instructions Recorded Confirmed Acid Gone Antacid 10 ml PO QIDWMHS 12/09/19 12/09/19 Amitiza 24 mcg PO BID 12/09/19 12/09/19 Best Fiber 1 packet PO BID 12/09/19 12/09/19 citalopram 60 mg PO DAILY 12/09/19 12/09/19 docusate sodium 200 mg PO BID 12/09/19 12/09/19 doxazosin 8 mg PO BEDTIME 12/09/19 12/09/19 finasteride 5 mg PO DAILY 12/09/19 12/09/19 loratadine 10 mg PO DAILY 12/09/19 12/09/19 magnesium hydroxide [Milk of 30 ml PO BEDTIME 12/09/19 12/09/19 Magnesia] olanzapine 10 mg PO DAILY 12/09/19 12/09/19 olanzapine 20 mg PO BEDTIME 12/09/19 12/09/19 omeprazole 40 mg PO DAILY@0630 12/09/19 12/09/19 polyethylene glycol 3350 17 g PO DAILY 12/09/19 12/09/19 simethicone [Gas Relief 40 mg PO TID@0800,1600,2000 12/09/19 12/09/19 (simethicone)] valproic acid (as sodium salt) 1,000 mg PO BID 12/09/19 12/09/19 Previous Rx's Medication Instructions Recorded amoxicillin-pot clavulanate 1 tab PO Q12H #14 tab 12/11/19 [Augmentin] doxazosin 8 mg tablet 8 mg PO BEDTIME #30 tab 12/24/19 Allergies Allergy/AdvReac Type Severity Reaction Status Date / Time haloperidol [From HALDOL] AdvReac Unknown UNKNOWN Verified 12/09/19 11:22 metoclopramide [From REGLAN] AdvReac Unknown UNKNOWN Verified 12/09/19 11:22 Review of Systems Review of Systems: ROS unable to be obtained due to cognitive impairment [facility] Past Medical History Attestation statement: The following information was validated with the patient. Source: old records reviewed Medical History Anemia Bipolar 1 disorder Chronic renal disease GERD (gastroesophageal reflux disease) Hiatal hernia Hydrocele Hyperlipemia Hypertension OCD (obsessive compulsive disorder) Surgical History H/O exploratory laparotomy History of colectomy Social History Social History Household Members: None Housing: House Alcohol intake: never Smoking Status: Never smoker Use of substances other than those prescribed or required for medical reasons: No Advance Directives: Yes Advance Directives Information Provided: Yes Advance Directives on File: No service: No Current occupational status: disabled Physical Exam Vital Signs: Vital Signs: Last Vital Signs Temp 98 F 01/07/20 12:45 Pulse 57 01/07/20 12:45 Resp 16 01/07/20 12:45 BP 108/60 01/07/20 12:45 Pulse Ox 97 01/07/20 12:45 Body Mass Index 22.7 Appearance: Somnolent at baseline, resting, withdraws, staff note this is [place]. No acute distress. Eyes: Pupils equal, round and reactive to light. ENT: Pharynx normal. contusion and abrasions superficial to forehead Neck: Normal inspection. Neck supple. CVS: Normal heart rate and rhythm. Pulses normal. Respiratory: No respiratory distress. Breath sounds normal. Abdomen: Soft and nontender. Skin: Skin warm and dry. Normal skin color. Normal skin turgor. Extremities: No lower extremity edema. No calf ttp full ROM without grimace or yelling out which is sign of pain per staff Neuro: unable to perform No motor deficit. No sensory deficit. Course Course Course Narrative: negative images stable for DC MDM - Fall MDM Narrative Medical decision making narrative: 64 yo male with cognitive impairment here with fall from commode at this time will need CT head/cspine at baseline per staff no AC therapy Discharge Plan Discharge Clinical Impression: Contusion, Head injury Patient Disposition: Home, Self-Care Instructions: Head Injury (ED) Additional Instructions: return to ED for any worsening symptoms or concerns Prescriptions: No Action doxazosin 8 mg tablet 8 mg PO BEDTIME Qty: 30 RF: 3 Acid Gone Antacid 95-358 mg/15 mL suspension 10 ml PO QIDWMHS RF: 0 olanzapine 10 mg tablet 10 mg PO DAILY RF: 0 citalopram 20 mg tablet 60 mg PO DAILY RF: 0 doxazosin 8 mg tablet 8 mg PO BEDTIME RF: 0 magnesium hydroxide [Milk of Magnesia] 400 mg/5 mL suspension 30 ml PO BEDTIME RF: 0 valproic acid (as sodium salt) 250 mg/5 mL solution 1,000 mg PO BID RF: 0 docusate sodium 100 mg capsule 200 mg PO BID RF: 0 omeprazole 20 mg capsule,delayed release(DR/EC) 40 mg PO DAILY@0630 RF: 0 simethicone [Gas Relief (simethicone)] 40 mg/0.6 mL drops,suspension 40 mg PO TID@0800,1600,2000 RF: 0 polyethylene glycol 3350 17 gram/dose powder 17 g PO DAILY RF: 0 olanzapine 20 mg tablet 20 mg PO BEDTIME RF: 0 finasteride 5 mg tablet 5 mg PO DAILY RF: 0 loratadine 10 mg tablet 10 mg PO DAILY RF: 0 Amitiza 24 mcg capsule 24 mcg PO BID RF: 0 Best Fiber 3 gram/3.5 gram powder 1 packet PO BID RF: 0 amoxicillin-pot clavulanate [Augmentin] 875-125 mg tablet 1 tab PO Q12H Qty: 14 RF: 0 Referrals: Tomy Rangel MD [Primary Care Provider] - 2 days (if needed)
--- NOTE | 2020-01-07 12:33 | CT_ITS ---
EXAMINATION: NONCONTRAST HEAD CT NONCONTRAST CERVICAL SPINE CT INDICATION INFORMATION: Fall COMPARISON: Chest CT 12/09/2019. TECHNIQUE: Separate noncontrast CT examinations of the head and cervical spine were performed. Coronal and sagittal images were created for each examination at the technologist workstation. This CT examination was performed using dose optimization techniques as appropriate, variously including the following: *Automated exposure control *Adjustment of mA and/or kV according to patient size (this includes techniques or standardized protocols for targeted exams where dose is matched to indication/reason for exam; i.e. extremities or head) *Use of iterative reconstruction technique DLP: 1091 mGy-cm FINDINGS: Head: There is no evidence of acute intracranial hemorrhage or territorial infarction. No abnormal mass effect or midline shift is seen. [place] to white matter differentiation is well preserved. No extra-axial fluid collections are identified. No hydrocephalus. Proportional prominence of the ventricles and sulcal spaces is consistent with mild volume loss. Patchy periventricular and deep white matter hypoattenuation is consistent with mild small vessel ischemic changes. No acute osseous or soft tissue abnormality. The mastoid air cells and visualized portions of the paranasal sinuses are well aerated. Cervical spine: There is anatomic alignment of the vertebral bodies and posterior elements. The atlantoaxial and atlantooccipital articulations are intact. Vertebral body heights are maintained. There is multilevel intervertebral disc space narrowing with endplate osteophyte formation and facet arthropathy. No evidence of acute fracture. No prevertebral soft tissue swelling. Patchy opacity seen at the right lung apex.. The thyroid gland is unremarkable. CT/CT cervical spine wo con IMPRESSION: 1. No acute intracranial finding. Volume loss with small vessel ischemic change. 2. No acute fracture or malalignment of the cervical spine. Mild degenerative changes. 3. Patchy opacity at the right lung apex. This appears partially improved from the previous CT.
[2020-01-07 12:45] VITALS: BP 108/60; PULSE 57; RESP 16; TEMP 36.6; O2SAT 97; BMI 22.7
[2020-01-07 14:09] VITALS: BP 98/62; PULSE 57; RESP 16; TEMP 36.4; O2SAT 98
== END 2020-01-07 14:25 | disposition home or self-care (01) ==
PROVIDERS: Emergency Provider Emergency Medicine; PCP Internal Medicine
DX: S00.93XA Contusion of unspecified part of head, initial encounter (principal); G44.309 Post-traumatic headache, unspecified, not intractable; M54.2 Cervicalgia; W18.30XA Fall on same level, unspecified, initial encounter; Y93.9 Activity, unspecified; Y92.099 Unspecified place in other non-institutional residence as the place of occurrence of the external cause; Y99.9 Unspecified external cause status; Z79.899 Other long term (current) drug therapy
CPT/HCPCS: 70450; 72125; 99284

== ENCOUNTER 2020-10-03 08:47 | Inpatient (IN) | payer MEDICARE, MEDICAID, SELFPAY ==
[2020-10-03] VITALS (10 sets, daily range): BP systolic 81–110; BP diastolic 35–64; PULSE 72–88; RESP 18–20; TEMP 36–37.1; O2SAT 93–98; BMI 24.0
--- NOTE | ~2020-10-03 | XR_ITS ---
EXAMINATION: XR CHEST CLINICAL INFORMATION: Fever. Question aspiration pneumonia. COMPARISON: CT chest dated 12/09/2019 TECHNIQUE: Frontal view of the chest was obtained. FINDINGS: Right lung volume loss is redemonstrated with right upper lobe airspace opacities, increased when compared to the prior chest radiograph. No left-sided airspace consolidation. No pleural effusion or pneumothorax. Stable cardiomediastinal silhouette. XR/XR chest 1V IMPRESSION: Right upper lobe airspace opacities, increased when compared to the prior CT and consistent with pneumonia.
--- NOTE | 2020-10-03 09:01 | ED.GENADULT ---
HPI - General Adult General Chief complaint: General Medical Stated complaint: HYPOTENSIVE Time Seen by Provider: 10/03/20 08:54 Source: other (Passport Application Examiner) Mode of arrival: EMS History of Present Illness HPI narrative: Patient nonverbal with history of bipolar disorder mentally challenged patient brought by intermediate staff for fever 101 F at intermediate earlier today with history of recurrent aspiration pneumonia. Patient was gagging earlier vomited small amount. Staff checked the blood pressure was 70/40 Related Data Home Medications Medication Instructions Recorded Confirmed aluminum hydrox-magnesium carb 95 10 ml PO QIDWMHS 12/09/19 10/03/20 mg-358 mg/15 mL oral suspension (Acid Gone Antacid) citalopram 20 mg tablet 60 mg PO DAILY 12/09/19 10/03/20 docusate sodium 100 mg capsule 200 mg PO BID 12/09/19 10/03/20 loratadine 10 mg tablet 10 mg PO DAILY 12/09/19 10/03/20 magnesium hydroxide 400 mg/5 mL 30 ml PO BEDTIME 12/09/19 10/03/20 oral suspension (Milk of Magnesia) olanzapine 10 mg tablet 10 mg PO DAILY 12/09/19 10/03/20 olanzapine 20 mg tablet 20 mg PO BEDTIME 12/09/19 10/03/20 omeprazole 20 mg capsule,delayed 40 mg PO DAILY@0630 12/09/19 10/03/20 release polyethylene glycol 3350 17 17 g PO DAILY 12/09/19 10/03/20 gram/dose oral powder simethicone 40 mg/0.6 mL oral 40 mg PO TID@0800,1600,2000 12/09/19 10/03/20 drops,suspension (Gas Relief (simethicone)) valproic acid (as sodium salt) 250 1,000 mg PO BID 12/09/19 10/03/20 mg/5 mL oral solution acetaminophen 325 mg tablet 650 mg PO Q6H PRN 10/03/20 10/03/20 dextromethorphan-guaifenesin 10 10 ml PO Q6H PRN 10/03/20 10/03/20 mg-100 mg/5 mL oral liquid doxazosin 8 mg tablet 8 mg PO DAILY 10/03/20 10/03/20 Previous Rx's Medication Instructions Recorded finasteride 5 mg tablet 5 mg PO DAILY #30 tab 07/28/20 Allergies Allergy/AdvReac Type Severity Reaction Status Date / Time haloperidol [From HALDOL] AdvReac Unknown UNKNOWN Verified 12/09/19 11:22 metoclopramide [From REGLAN] AdvReac Unknown UNKNOWN Verified 12/09/19 11:22 Review of Systems Review of Systems: Yes Unobtainable due to mental condition PMFSH Past Medical History Medical History (Updated 10/03/20 @ 15:46 by Shay Escalante MD) Anemia Autism Bipolar 1 disorder Chronic renal disease Developmental non-verbal disorder GERD (gastroesophageal reflux disease) Hiatal hernia Hydrocele Hyperlipemia Hypertension Mentally challenged OCD (obsessive compulsive disorder) Pneumonia Surgical History H/O exploratory laparotomy History of colectomy Social History Social History Household Members: None Housing: House Housing Other:: intermediate Do you presently have visiting nurse or other home services: Yes Alcohol intake: never Advance Directives: No Advance Directives Information Provided: No service: No Current occupational status: disabled Physical Exam Vital Signs: Vital Signs: Last Vital Signs Temp 98.7 F 10/03/20 15:29 Pulse 78 10/03/20 15:29 Resp 18 10/03/20 15:29 BP 83/41 L 10/03/20 15:29 Pulse Ox 97 10/03/20 15:29 Body Mass Index 24.0 Const: Other: Nonverbal lying in the bed without any significant distress General: no acute distress Nutritional Appearance: average body habitus and thin HENMT: Head: Yes normocephalic Eyes: General: appearance normal, both eyes and all related structures Neck: Neck: Yes normal visual inspection Resp: Effort & Inspection: normal respiratory effort Auscultation: clear to auscultation bilaterally, no rhonchi and no wheezes Cardio: Jugular venous distension: no JVD Palpation: normal PMI Rate: regular rate Rhythm: regular rhythm Heart sounds: S1 normal heart sound present and S2 normal heart sound present Peripheral pulses: Peripheral pulses 2+ throughout GI: Inspection: Yes normal to inspection Palpation (GI): Soft to palpation and nontender Auscultation: normal bowel sounds Skin: General skin exam: no rashes or lesions noted Neuro: Other: Nonverbal moving his all 4 extremities Medical Decision Making MDM Narrative Medical decision making narrative: Patient's right upper lobe pneumonia likely aspiration as in the past with sepsis but not in septic shock patient's blood pressure dropped slightly on arrival improved after IV hydration. Will admit patient for IV antibiotics Lab Data Lab results reviewed: Yes I reviewed the patient's lab results. Result diagrams: 10/03/20 09:32 10/03/20 09:32 Labs: Lab Results 10/03/20 10/03/20 10/03/20 Range/Units 09:32 09:32 09:32 WBC 12.0 H (4.8-10.8) X10*3/uL RBC 3.08 L (4.60-5.80) X10*6/uL Hgb 9.4 L (14.0-18.0) g/dl Hct 28.9 L (42-52) % MCV 93.8 (80-98) fL MCH 30.5 (27.0-33.0) pg MCHC 32.5 (31.0-36.0) g/dl RDW 17.3 H (11.0-16.0) % Plt Count 221 (160-400) X10*3/uL MPV 10.1 (9.4-12.4) fL Immature Gran % (Auto) 0.3 (0.0-0.4) % Neut % (Auto) 86.9 H (45-73) % Lymph % (Auto) 3.2 L (20-40) % [place] % (Auto) 9.4 (2-11) % Eos % (Auto) 0.0 (0-4) % Baso % (Auto) 0.2 (0-2) % Lymph # (Auto) 0.4 L (1.2-4.9) X10*3/uL [place] # (Auto) 1.1 (0.1-1.2) X10*3/uL Eos # (Auto) 0.0 (0.0-0.4) X10*3/uL Baso # (Auto) 0.0 (0.0-0.2) X10*3/uL Abs Immat Gran (auto) 0.04 H (0.00-0.03) X10*3/uL Absolute Neuts (auto) 10.5 H (2.0-8.3) X10*3/uL Absolute Nucleated RBC 0.000 (0.0-0.012) X10*3/uL Nucleated RBC % (auto) 0.0 (0.0-0.2) /100WBC Sodium 142 (135-145) mmol/L Potassium 4.1 (3.3-5.1) mmol/L Chloride 103 (96-108) mmol/L Carbon Dioxide 32 H (22-29) mmol/L Anion Gap 11 L (12-20) BUN 26 H (9-16) mg/dL Creatinine 1.34 (0.5-1.4) mg/dL Estim Creat Clear Calc 44.2 Estimated GFR 53 POC Glucose (60-115) mg/dL Random Glucose 50 L* (60-115) mg/dL Lactic Acid 1.3 (0.5-2.0) mmol/L Calcium 9.4 D (8.4-10.2) mg/dL Total Bilirubin 0.4 (0.0-1.0) mg/dL Direct Bilirubin < 0.2 (0.0-0.5) mg/dL AST 29 D (5-37) U/L ALT 17 (0-40) U/L Alkaline Phosphatase 77 D (39-117) U/L Total Protein 7.5 (6.5-8.0) g/dL Albumin 3.4 L (3.5-5.0) g/dL Urine Color Urine Appearance Urine pH (5.0-8.0) Ur Specific [place] (1.005-1.025) Urine Protein (NEG-TRACE) MG/DL Urine Glucose (UA) (NEG) MG/DL Urine Ketones (NEG) MG/DL Urine Blood (NEG) Urine Nitrite (NEG) Ur Leukocyte Esterase (NEG) COVID-19 (SUNNI) (Negative) COVID-19 Clin Com 10/03/20 10/03/20 10/03/20 Range/Units 10:26 10:51 11:39 WBC (4.8-10.8) X10*3/uL RBC (4.60-5.80) X10*6/uL Hgb (14.0-18.0) g/dl Hct (42-52) % MCV (80-98) fL MCH (27.0-33.0) pg MCHC (31.0-36.0) g/dl RDW (11.0-16.0) % Plt Count (160-400) X10*3/uL MPV (9.4-12.4) fL Immature Gran % (Auto) (0.0-0.4) % Neut % (Auto) (45-73) % Lymph % (Auto) (20-40) % [place] % (Auto) (2-11) % Eos % (Auto) (0-4) % Baso % (Auto) (0-2) % Lymph # (Auto) (1.2-4.9) X10*3/uL [place] # (Auto) (0.1-1.2) X10*3/uL Eos # (Auto) (0.0-0.4) X10*3/uL Baso # (Auto) (0.0-0.2) X10*3/uL Abs Immat Gran (auto) (0.00-0.03) X10*3/uL Absolute Neuts (auto) (2.0-8.3) X10*3/uL Absolute Nucleated RBC (0.0-0.012) X10*3/uL Nucleated RBC % (auto) (0.0-0.2) /100WBC Sodium (135-145) mmol/L Potassium (3.3-5.1) mmol/L Chloride (96-108) mmol/L Carbon Dioxide (22-29) mmol/L Anion Gap (12-20) BUN (9-16) mg/dL Creatinine (0.5-1.4) mg/dL Estim Creat Clear Calc Estimated GFR POC Glucose 80 (60-115) mg/dL Random Glucose (60-115) mg/dL Lactic Acid (0.5-2.0) mmol/L Calcium (8.4-10.2) mg/dL Total Bilirubin (0.0-1.0) mg/dL Direct Bilirubin (0.0-0.5) mg/dL AST (5-37) U/L ALT (0-40) U/L Alkaline Phosphatase (39-117) U/L Total Protein (6.5-8.0) g/dL Albumin (3.5-5.0) g/dL Urine Color YELLOW Urine Appearance CLEAR Urine pH 8.0 (5.0-8.0) Ur Specific [place] 1.010 (1.005-1.025) Urine Protein NEG (NEG-TRACE) MG/DL Urine Glucose (UA) NEG (NEG) MG/DL Urine Ketones NEG (NEG) MG/DL Urine Blood NEG (NEG) Urine Nitrite NEG (NEG) Ur Leukocyte Esterase NEG (NEG) COVID-19 (SUNNI) Negative (Negative) COVID-19 Clin Com See Note 10/03/20 Range/Units 14:00 WBC (4.8-10.8) X10*3/uL RBC (4.60-5.80) X10*6/uL Hgb (14.0-18.0) g/dl Hct (42-52) % MCV (80-98) fL MCH (27.0-33.0) pg MCHC (31.0-36.0) g/dl RDW (11.0-16.0) % Plt Count (160-400) X10*3/uL MPV (9.4-12.4) fL Immature Gran % (Auto) (0.0-0.4) % Neut % (Auto) (45-73) % Lymph % (Auto) (20-40) % [place] % (Auto) (2-11) % Eos % (Auto) (0-4) % Baso % (Auto) (0-2) % Lymph # (Auto) (1.2-4.9) X10*3/uL [place] # (Auto) (0.1-1.2) X10*3/uL Eos # (Auto) (0.0-0.4) X10*3/uL Baso # (Auto) (0.0-0.2) X10*3/uL Abs Immat Gran (auto) (0.00-0.03) X10*3/uL Absolute Neuts (auto) (2.0-8.3) X10*3/uL Absolute Nucleated RBC (0.0-0.012) X10*3/uL Nucleated RBC % (auto) (0.0-0.2) /100WBC Sodium (135-145) mmol/L Potassium (3.3-5.1) mmol/L Chloride (96-108) mmol/L Carbon Dioxide (22-29) mmol/L Anion Gap (12-20) BUN (9-16) mg/dL Creatinine (0.5-1.4) mg/dL Estim Creat Clear Calc Estimated GFR POC Glucose 96 (60-115) mg/dL Random Glucose (60-115) mg/dL Lactic Acid (0.5-2.0) mmol/L Calcium (8.4-10.2) mg/dL Total Bilirubin (0.0-1.0) mg/dL Direct Bilirubin (0.0-0.5) mg/dL AST (5-37) U/L ALT (0-40) U/L Alkaline Phosphatase (39-117) U/L Total Protein (6.5-8.0) g/dL Albumin (3.5-5.0) g/dL Urine Color Urine Appearance Urine pH (5.0-8.0) Ur Specific [place] (1.005-1.025) Urine Protein (NEG-TRACE) MG/DL Urine Glucose (UA) (NEG) MG/DL Urine Ketones (NEG) MG/DL Urine Blood (NEG) Urine Nitrite (NEG) Ur Leukocyte Esterase (NEG) COVID-19 (SUNNI) (Negative) COVID-19 Clin Com Discharge Plan Discharge Clinical Impression: Pneumonia Qualifiers: Pneumonia type: aspiration pneumonia Aspiration pneumonia type: unspecified Laterality: right Lung location: upper lobe of lung Qualified Code(s): J69.0 - Pneumonitis due to inhalation of food and vomit Patient Disposition: Admitted As Inpatient
[2020-10-03] MEDS: 0.9 % Sodium Chloride 1,000 ML 999 ML IVCONT ×2 (09:12→14:21)
[2020-10-03 09:39] LABS: MANUAL DIFF FLAG NO
[2020-10-03 09:42] LABS: Basophils Percent Auto 0.2 % (0-2); Hematocrit 28.9 % (42-52); Hemoglobin 9.4 g/dl (14.0-18.0); Imm Gran Abs Auto 0.04 X10*3/uL (0.00-0.03); Imm Gran Pct Auto 0.3 % (0.0-0.4); Lymphocytes Absolute Auto 0.4 X10*3/uL (1.2-4.9); Lymphocytes Percent Auto 3.2 % (20-40); Mean Corpuscular HGB Conc 32.5 g/dl (31.0-36.0); Mean Corpuscular Hemoglobin 30.5 pg (27.0-33.0); Mean Corpuscular Volume 93.8 fL (80-98); Mean Platelet Volume 10.1 fL (9.4-12.4); Monocytes Absolute Auto 1.1 X10*3/uL (0.1-1.2); Monocytes Percent Auto 9.4 % (2-11); Neutrophils Absolute Auto 10.5 X10*3/uL (2.0-8.3); Neutrophils Percent Auto 86.9 % (45-73); Platelet Count 221 X10*3/uL (160-400); Red Blood Count 3.08 X10*6/uL (4.60-5.80); Red Cell Distribution Width 17.3 % (11.0-16.0)
[2020-10-03 09:58] LABS: Lactic Acid 1.3 mmol/L (0.5-2.0)
[2020-10-03 10:10] LABS: Alanine Aminotransferase 17 U/L (0-40); Albumin Level 3.4 g/dL (3.5-5.0); Alkaline Phosphatase 77 U/L (39-117); Anion Gap 11 (12-20); Aspartate Amino Transferase 29 U/L (5-37); Bilirubin Direct < 0.2 mg/dL (0.0-0.5); Bilirubin Total 0.4 mg/dL (0.0-1.0); Blood Urea Nitrogen 26 mg/dL (9-16); Calcium 9.4 mg/dL (8.4-10.2); Carbon Dioxide 32 mmol/L (22-29); Chloride 103 mmol/L (96-108); Creatinine Clr Calc Pharmacy 44.2; Estimated Glomerular Filt Rate 53; Potassium 4.1 mmol/L (3.3-5.1); Sodium 142 mmol/L (135-145); Total Protein 7.5 g/dL (6.5-8.0)
[2020-10-03 10:24] LABS: Glucose Random 50 mg/dL (60-115)
[2020-10-03] MEDS: Piperacillin Sodium/Tazobactam 3.375 GM in 0.9 % Sodium Chloride 50 ML IV (10:35)
[2020-10-03 10:52] LABS: COVID-19 Test Negative (Negative)
[2020-10-03 11:03] LABS: Glucose Urine UA NEG (NEG); Leukocyte Esterase Urine NEG (NEG); Nitrite Urine NEG (NEG); Urine Blood NEG (NEG); Urine Ketones NEG (NEG); Urine Protein NEG (NEG-TRACE)
[2020-10-03 11:06] LABS: Appearance Urine CLEAR; Color Urine YELLOW
--- NOTE | 2020-10-03 11:40 | HE.PHANOTE ---
Med Rec completed 10/03/20 based on list from facility. No issues to report
[2020-10-03 11:44] LABS: Glucose, Whole Blood 80 mg/dL (60-115)
[2020-10-03 14:04] LABS: Glucose, Whole Blood 96 mg/dL (60-115)
--- NOTE | 2020-10-03 14:43 | PC.NURSE ---
PT SEEN BY HOSPITALIST, NEED BEING MET, CHANGED AND REPOSITIONED. WORKER FROM CORRECTION AT BEDSIDE
--- NOTE | 2020-10-03 14:47 | P.HPHOSP_ITS ---
History of Present Illness Date of Service: 10/03/20 Chief Complaint: Fever, low blood pressure and concern for aspiration 65-year-old nonverbal male at baseline with multiple medical issues as listed in PMHx. He was found to be hypOtensive at group with SBP in 70s and was febrile according to accompanied by long-term staff. Work up in the ED reviewed WBC of 12, normal lactic acid, CXR shows evidence of PNA in the right upper lobe. He has not been febril here yet, has had episode of low Blood pressure but clinically appear perfused. He has recevid IV Zosyn, he's getting a second liter of fluid bolus, blood cultures sent. He is getting additional fluid bolus and repeat lactic, he has mild [place] probably from dehydration. f Review of Systems Review of Systems: Yes Unobtainable due to mental status [facility] Medical History (Updated 10/03/20 @ 15:46 by Shay Escalante MD) Anemia Autism Bipolar 1 disorder Chronic renal disease Developmental non-verbal disorder GERD (gastroesophageal reflux disease) Hiatal hernia Hydrocele Hyperlipemia Hypertension Mentally challenged OCD (obsessive compulsive disorder) Pneumonia Pertinent family history: not available to me Surgical History H/O exploratory laparotomy History of colectomy Social History Household Members: Other Household Members Other:: patient lives at long-term Housing: Other Housing Other:: correction Do you presently have visiting nurse or other home services: Yes Alcohol intake: never Patient Tobacco Use Status: Never used Tobacco Use of substances other than those prescribed or required for medical reasons: No Have you been hit, kicked, punched, or otherwise hurt by someone within the past year? If so, by whom?: No Do you feel safe in your current relationship?: No Is there a partner from a previous relationship who is making you feel unsafe now?: No Are you made to feel afraid or neglected: No Advance Directives: No Advance Directives Information Provided: No Do you have thoughts of harming others: None Do you have a plan to hurt others: No Plan Recently lost weight without trying: No Eating poorly because of decreased appetite: No Nutrition Risks: On aspiration precautions Poor oral hygiene: No service: No Current occupational status: disabled Meds Allergies Allergy/AdvReac Type Severity Reaction Status Date / Time haloperidol [From HALDOL] AdvReac Unknown UNKNOWN Verified 12/09/19 11:22 metoclopramide [From REGLAN] AdvReac Unknown UNKNOWN Verified 12/09/19 11:22 Active Medications: Current Medications Generic Name Dose Route Start Last Admin Trade Name Freq PRN Reason Stop Dose Admin Acetaminophen 650 mg 10/03/20 14:31 Acetaminophen Supp 650 Mg Supp.Rect MD Q6H PRN Pain, Mild (Pain Scale 1-3) Enoxaparin Sodium 40 mg 10/03/20 15:00 Enoxaparin Sodium 40 Mg/0.4 Ml Syringe SUBCUT Q24H RODOLFO Sodium Chloride 1,000 mls @ 999 mls/hr 10/03/20 14:00 10/03/20 14:21 Ns IVCONT 10/03/20 15:00 999 mls/hr .Q1H1M RODOLFO Administration Sodium Chloride 1,850.67 mls @ 1,850.67 mls/hr 10/03/20 14:29 Ns 30 ml/kg infuse over 1 hr (1850.67 ml) 10/03/20 15:28 IV .Q1H ONE Piperacillin Sod/Tazobactam 100 mls @ 200 mls/hr 10/03/20 17:36 Sod 4.5 gm/ Sodium Chloride IV 10/03/20 18:05 ONCE ONE Vancomycin HCl 750 mg/ Sodium 265 mls @ 265 mls/hr 10/03/20 14:41 Chloride IV 10/03/20 15:40 ONCE ONE Pharmacy Consult 1 each 10/03/20 11:01 Consult Rx Perform Med Rec MISCELLANE ONCE PRN Consult order Pharmacy Consult 1 each 10/03/20 14:41 Consult Rx Vancomycin Dosing MISCELLANE DAILY PRN Consult order Sodium Chloride 3 ml 10/03/20 16:00 0.9 % Sodium Chloride Flush 3 Ml Syringe IVFLUSH QSHIFT [facility] Home Medications Medication Instructions Recorded Confirmed Last Taken Type aluminum hydrox-magnesium carb 95 10 ml PO QIDWMHS 12/09/19 10/03/20 Unknown History mg-358 mg/15 mL oral suspension (Acid Gone Antacid) citalopram 20 mg tablet 60 mg PO DAILY 12/09/19 10/03/20 10/02/20 History docusate sodium 100 mg capsule 200 mg PO BID 10/21/20 08/16/21 08/15/21 History loratadine 10 mg tablet 10 mg PO DAILY 12/09/19 10/03/20 10/02/20 History magnesium hydroxide 400 mg/5 mL 30 ml PO BEDTIME 12/09/19 10/03/20 10/02/20 History oral suspension (Milk of Magnesia) olanzapine 10 mg tablet 10 mg PO DAILY 12/09/19 10/03/20 10/02/20 History olanzapine 20 mg tablet 20 mg PO BEDTIME 12/09/19 10/03/20 10/02/20 History omeprazole 20 mg capsule,delayed 40 mg PO DAILY@0630 12/09/19 10/03/20 10/02/20 History release polyethylene glycol 3350 17 17 g PO DAILY 12/09/19 10/03/20 10/02/20 History gram/dose oral powder simethicone 40 mg/0.6 mL oral 40 mg PO TID@0800,1600,2000 12/09/19 10/03/20 10/02/20 History drops,suspension (Gas Relief (simethicone)) valproic acid (as sodium salt) 250 1,000 mg PO BID 12/09/19 10/03/20 Unknown History mg/5 mL oral solution acetaminophen 325 mg tablet 650 mg PO Q6H PRN 10/03/20 10/03/20 Unknown History dextromethorphan-guaifenesin 10 10 ml PO Q6H PRN 10/03/20 10/03/20 Unknown History mg-100 mg/5 mL oral liquid doxazosin 8 mg tablet 8 mg PO DAILY 10/03/20 10/03/20 10/02/20 History Physical Exam Vital Signs and Narrative: Vital Signs: Last Vital Signs Temp 98.7 F 10/03/20 14:26 Pulse 88 10/03/20 08:53 Resp 18 10/03/20 08:53 BP 106/54 L 10/03/20 14:14 Pulse Ox 98 10/03/20 13:44 Body Mass Index 24.0 Results Labs CBC and Chem 7: 10/03/20 09:32 10/03/20 09:32 Labs: Laboratory Results - last 24 hr 10/03/20 10/03/20 10/03/20 09:32 09:32 09:32 MCV 93.8 MCH 30.5 MCHC 32.5 RDW 17.3 H Plt Count 221 MPV 10.1 Immature Gran % (Auto) 0.3 Neut % (Auto) 86.9 H Lymph % (Auto) 3.2 L [place] % (Auto) 9.4 Eos % (Auto) 0.0 Baso % (Auto) 0.2 Lymph # (Auto) 0.4 L [place] # (Auto) 1.1 Eos # (Auto) 0.0 Baso # (Auto) 0.0 Abs Immat Gran (auto) 0.04 H Absolute Neuts (auto) 10.5 H Absolute Nucleated RBC 0.000 Nucleated RBC % (auto) 0.0 Anion Gap 11 L Estim Creat Clear Calc 44.2 Estimated GFR 53 POC Glucose Random Glucose 50 L* Lactic Acid 1.3 Calcium 9.4 D Total Bilirubin 0.4 Direct Bilirubin < 0.2 AST 29 D ALT 17 Alkaline Phosphatase 77 D Total Protein 7.5 Albumin 3.4 L Urine Color Urine Appearance Urine pH Ur Specific [place] Urine Protein Urine Glucose (UA) Urine Ketones Urine Blood Urine Nitrite Ur Leukocyte Esterase COVID-19 (SUNNI) COVID-[facility] Clin Com 10/03/20 10/03/20 10/03/20 10:26 10:51 11:39 MCV MCH MCHC RDW Plt Count MPV Immature Gran % (Auto) Neut % (Auto) Lymph % (Auto) [place] % (Auto) Eos % (Auto) Baso % (Auto) Lymph # (Auto) [place] # (Auto) Eos # (Auto) Baso # (Auto) Abs Immat Gran (auto) Absolute Neuts (auto) Absolute Nucleated RBC Nucleated RBC % (auto) Anion Gap Estim Creat Clear Calc Estimated GFR POC Glucose 80 Random Glucose Lactic Acid Calcium Total Bilirubin Direct Bilirubin AST ALT Alkaline Phosphatase Total Protein Albumin Urine Color YELLOW Urine Appearance CLEAR Urine pH 8.0 Ur Specific [place] 1.010 Urine Protein NEG Urine Glucose (UA) NEG Urine Ketones NEG Urine Blood NEG Urine Nitrite NEG Ur Leukocyte Esterase NEG COVID-19 (SUNNI) Negative COVID-19 Clin Com See Note 10/03/20 14:00 MCV MCH MCHC RDW Plt Count MPV Immature Gran % (Auto) Neut % (Auto) Lymph % (Auto) [place] % (Auto) Eos % (Auto) Baso % (Auto) Lymph # (Auto) [place] # (Auto) Eos # (Auto) Baso # (Auto) Abs Immat Gran (auto) Absolute Neuts (auto) Absolute Nucleated RBC Nucleated RBC % (auto) Anion Gap Estim Creat Clear Calc Estimated GFR POC Glucose 96 Random Glucose Lactic Acid Calcium Total Bilirubin Direct Bilirubin AST ALT Alkaline Phosphatase Total Protein Albumin Urine Color Urine Appearance Urine pH Ur Specific [place] Urine Protein Urine Glucose (UA) Urine Ketones Urine Blood Urine Nitrite Ur Leukocyte Esterase COVID-19 (SUNNI) COVID-19 Clin Com Imaging Radiologist's Impressions: Impressions Chest X-Ray 10/03/20 08:56 IMPRESSION: Right upper lobe airspace opacities, increased when compared to the prior CT and consistent with pneumonia. Assessment and Plan (1) Sepsis associated hypotension: Status: Acute (2) Aspiration pneumonia: Status: Acute (3) [facility] (acute kidney injury): Status: Acute 65 year with intelectual disability, non verbal at baseline, coming from a group with hypOtension, fever and found to have pneumonia concerning for Aspiration pneumonia, also has mild [facility] and likely dehydration. 1/Sepsis associated with hypOtension due pneumon, sepsis focal performed 2/Pneumonia, likely aspiration type -Zosyn and Vancomyin D1 -IVF to maintain SBP >95 -Discussed with Day Treatment Clinician/Art Therapist (pt appears to be perfusing well but if condition, will reassess) -repeat BMP, CBC in the morning. -Follow cultures 3. [facility]--likely renal hypoperfusion, IVF as above and repeat in the morning. 4. Chronic med/Psych issues--continue med per med rec 5. DVT prophylaxis--Lovenox Quality Stroke Does the patient have a stroke diagnosis?: No VTE Prior VTE?: No VTE Risk Level:: Medical - moderate - high VTE Device Contraindication: Treatment Not Indicated VTE Drug Contraindication: N/A - Med Ordered
[2020-10-03] MEDS: vancomycin HCL 1,250 MG in 0.9 % Sodium Chloride 250 ML 166.67 MG IV (15:37)
[2020-10-03 15:52] LABS: Lactic Acid 2.5 mmol/L (0.5-2.0)
[2020-10-03 16:34] LABS: Glucose, Whole Blood 72 mg/dL (60-115)
[2020-10-03 17:17] LABS: Reflex Lactate? Lactic Acid Added
[2020-10-03] MEDS: Enoxaparin Sodium 40 MG/0.4 ML SYRINGE SUBCUT (17:27)
[2020-10-03 17:52] LABS: ~Lactic Acid-LAB USE ONLY 1.7 mmol/L (0.5-2.0)
[2020-10-03] MEDS: Piperacillin Sodium/Tazobactam 4.5 GM in 0.9 % Sodium Chloride 100 ML IV ×2 (18:07→23:25)
[2020-10-03] MEDS: Dextrose 5 % and Lactated Ring 1,000 ML 100 ML IVCONT (20:32)
[2020-10-03] MEDS: 0.9 % Sodium Chloride Flush 3 ML SYRINGE IVFLUSH (20:33)
[2020-10-03 21:29] LABS: Glucose, Whole Blood 79 mg/dL (60-115)
[2020-10-04 03:34] VITALS: BP 91/49; PULSE 78; RESP 16; TEMP 36.9; O2SAT 95
[2020-10-04 03:55] LABS: Glucose, Whole Blood 76 mg/dL (60-115)
[2020-10-04] MEDS: Piperacillin Sodium/Tazobactam 4.5 GM in 0.9 % Sodium Chloride 100 ML IV ×3 (05:49→18:33)
[2020-10-04 06:01] LABS: Hematocrit 28.8 % (42-52); Hemoglobin 9.2 g/dl (14.0-18.0); Mean Corpuscular HGB Conc 31.9 g/dl (31.0-36.0); Mean Corpuscular Hemoglobin 30.2 pg (27.0-33.0); Mean Corpuscular Volume 94.4 fL (80-98); Mean Platelet Volume 10.2 fL (9.4-12.4); Platelet Count 158 X10*3/uL (160-400); Red Blood Count 3.05 X10*6/uL (4.60-5.80); Red Cell Distribution Width 17.4 % (11.0-16.0); White Blood Count 11.7 X10*3/uL (4.8-10.8)
[2020-10-04] MEDS: Dextrose 5 % and Lactated Ring 1,000 ML 100 ML IVCONT ×2 (06:09→16:36)
[2020-10-04 06:23] LABS: Anion Gap 11 (12-20); Blood Urea Nitrogen 18 mg/dL (9-16); Calcium 8.8 mg/dL (8.4-10.2); Carbon Dioxide 25 mmol/L (22-29); Chloride 112 mmol/L (96-108); Estimated Glomerular Filt Rate 57; Glucose Random 61 mg/dL (60-115); Potassium 4.5 mmol/L (3.3-5.1); Sodium 143 mmol/L (135-145)
[2020-10-04 07:20] VITALS: BP 117/67; PULSE 76; RESP 19; TEMP 36.9; O2SAT 96
[2020-10-04 07:31] LABS: Glucose, Whole Blood 81 mg/dL (60-115)
--- NOTE | 2020-10-04 10:11 | MHC.CM.PN ---
pt lives in a halfway, one of his case finishing machine adjuster's is by the bedside. pt is non verbal c developmental delays. pt 's case finishing machine adjuster was helpful in the interview process. pt is assisted or has full help c all adls. pt is non ambulatory, gait belt is used c transferring also a WC is used. pt has nsg visit via [facility] at the halfway. at this time the halfway does not anticipate the need for vna at dc . case finishing machine adjuster from [facility] will transport pt home at dc. pt's sister - edilia olivera is the guardian. she was also called to give update. she did not think any services would be needed at dc. dc plan is to return to halfway no svcs. cm to cont. to follow.
[2020-10-04 10:51] VITALS: BP 148/75; PULSE 75; RESP 19; TEMP 36.8; O2SAT 94
[2020-10-04 11:01] LABS: Glucose, Whole Blood 99 mg/dL (60-115)
[2020-10-04 11:33] LABS: Lactate Dehydrogenase 157 U/L (118-273)
--- NOTE | 2020-10-04 12:58 | HO.PM.IMPN ---
Subjective Subjective Date of Service: 10/04/20 Interval History: fevers ,low blood pressure and concern for aspiration Physical Exam Vital Signs: Vital Signs: Last Vital Signs Temp 98.3 F 10/04/20 10:51 Pulse 75 10/04/20 10:51 Resp 19 10/04/20 10:51 BP 148/75 H 10/04/20 10:51 Pulse Ox 94 10/04/20 10:51 Body Mass Index 24.0 Physical exam: Cvs: [id number], [id number] , no murmur res: grossly fair air entry,slightly diminshed at bases. abd: no rebound or guarding ,nt, bs present. ext pulses present , no cyanosis neuro: [facility]. Objective Data Current Medications Generic Name Dose Route Start Last Admin Trade Name Freq PRN Reason Stop Dose Admin Acetaminophen 650 mg 10/03/20 14:31 Acetaminophen Supp 650 Mg Supp.Rect AL Q6H PRN Pain, Mild (Pain Scale 1-3) Enoxaparin Sodium 40 mg 10/03/20 15:00 10/03/20 17:27 Enoxaparin Sodium 40 Mg/0.4 Ml Syringe SUBCUT 40 mg Q24H RODOLFO Administration Piperacillin Sod/Tazobactam 100 mls @ 200 mls/hr 10/03/20 17:36 10/04/20 12:40 Sod 4.5 gm/ Sodium Chloride IV 200 mls/hr Q6H RODOLFO Administration Vancomycin HCl 1,000 mg/ 270 mls @ 270 mls/hr 10/04/20 15:00 Sodium Chloride IV Q24H RODOLFO Dextrose/Lactated Ringer's 1,000 mls @ 100 mls/hr 10/03/20 18:00 10/04/20 06:09 D5lr IVCONT 100 mls/hr .Q10H RODOLFO Administration Pharmacy Consult 1 each 10/03/20 11:01 Consult Rx Perform Med Rec MISCELLANE ONCE PRN Consult order Pharmacy Consult 1 each 10/03/20 14:41 Consult Rx Vancomycin Dosing MISCELLANE DAILY PRN Consult order Sodium Chloride 3 ml 10/03/20 16:00 10/04/20 08:30 0.9 % Sodium Chloride Flush 3 Ml Syringe IVFLUSH Not Given QSHIFT REPLACED BY [facility] Labs CBC & Chem 7: 10/04/20 05:30 10/04/20 05:30 Labs: Laboratory Results - last 24 hr 10/03/20 10/03/20 10/03/20 14:00 15:01 16:25 MCV MCH MCHC RDW Plt Count MPV Absolute Nucleated RBC Nucleated RBC % (auto) Anion Gap Estim Creat Clear Calc Estimated GFR POC Glucose 96 72 Random Glucose Lactic Acid 2.5 H* Lactic Acid Fup @ 2Hr Calcium Lactate Dehydrogenase Carcinoembryonic Ag 10/03/20 10/03/20 10/04/20 17:30 21:26 03:51 MCV MCH MCHC RDW Plt Count MPV Absolute Nucleated RBC Nucleated RBC % (auto) Anion Gap Estim Creat Clear Calc Estimated GFR POC Glucose 79 76 Random Glucose Lactic Acid Lactic Acid Fup @ 2Hr 1.7 Calcium Lactate Dehydrogenase Carcinoembryonic Ag 10/04/20 10/04/20 10/04/20 05:30 05:30 07:25 MCV 94.4 MCH 30.2 MCHC 31.9 RDW 17.4 H Plt Count 158 L D MPV 10.2 Absolute Nucleated RBC 0.000 Nucleated RBC % (auto) 0.0 Anion Gap 11 L Estim Creat Clear Calc 47.0 Estimated GFR 57 POC Glucose 81 Random Glucose 61 Lactic Acid Lactic Acid Fup @ 2Hr Calcium 8.8 D Lactate Dehydrogenase 157 Carcinoembryonic Ag 1.70 10/04/20 10:57 MCV MCH MCHC RDW Plt Count MPV Absolute Nucleated RBC Nucleated RBC % (auto) Anion Gap Estim Creat Clear Calc Estimated GFR POC Glucose 99 Random Glucose Lactic Acid Lactic Acid Fup @ 2Hr Calcium Lactate Dehydrogenase Carcinoembryonic Ag Microbiology Microbiology Results: Microbiology 10/03/20 09:57 Blood Culture - Preliminary Blood - Venous No growth after 24 hours. 10/03/20 09:32 Blood Culture - Preliminary Blood - Venous No growth after 24 hours. Assessment and Plan (1) Pneumonia: Status: Acute Assessment and Plan: 65 year? with intelectual disability, non verbal at baseline, coming from a group with hypOtension, fever and found to have? pneumonia concerning for Aspiration pneumonia, also has mild LINO and likely dehydration. 1/Sepsis associated with hypOtension due pneumon, sepsis focal performed 2/Pneumonia, likely aspiration type -Zosyn and Vancomyin D2 -IVF to maintain SBP >95 -Discussed with Apparel Fashion Designer (pt appears to be? perfusing well but if condition, will reassess) -repeat BMP, CBC in the morning. -Follow cultures 3. LINO--likely renal hypoperfusion, IVF as above and repeat in the morning. 4. Chronic med/Psych issues--continue med per med rec 5. DVT prophylaxis--Lovenox (2) LINO (acute kidney injury): Status: Acute Quality Stroke Does the patient have a stroke diagnosis?: No VTE Prior VTE?: No VTE Risk Level:: Medical - moderate - high VTE Device Contraindication: Treatment Not Indicated VTE Drug Contraindication: N/A - Med Ordered
--- NOTE | 2020-10-04 13:21 | MHC.CM.PN ---
pt lives in a [facility], one of his fingerprint expert's is by the bedside. pt is non verbal c developmental delays. pt 's fingerprint expert was helpful in the interview process. pt is assisted or has full help c all adls. pt is non ambulatory, gait belt is used c transferring also a WC is used. pt has nsg during the day , buzz is nurse ph: [phone] - pls call her on day of dc. the [facility] does not anticipate the need for vna at dc . fingerprint expert from [facility] will transport pt home at dc. pt's sister - edilia olivera is the guardian. she was also called to give update. she did not think any services would be needed at dc. dc plan is to return to [facility] no svcs. cm to cont. to follow.
--- NOTE | 2020-10-04 14:48 | MHC.SLORD ---
Speech Language Pathology Order Status: ALLIED HEALTH PROFESSIONAL completed swallow evaluation this date. Patient unable to follow commands for examination of oral mechanism or oral cavity checks. No overt s/s of aspiration at bedside. Recommend baseline diet of PUREED SOLIDS (NDD 1) with THIN LIQUIDS via teaspoons only. Gathered from past MBSS, patient silently aspirates but family requests baseline diet. Following aspiration precautions are recommended: no straws, alternate solids with liquids, present dry spoon to prompt double swallow and check oral cavity, oral care before/after PO intake. MBSS may be appropriate to make updated recommendations. ALLIED HEALTH PROFESSIONAL will follow up tomorrow morning to ensure tolerance.
[2020-10-04 15:27] VITALS: BP 137/68; PULSE 80; RESP 20; TEMP 36.4; O2SAT 91
[2020-10-04 16:11] LABS: Glucose, Whole Blood 139 mg/dL (60-115)
[2020-10-04] MEDS: 0.9 % Sodium Chloride Flush 3 ML SYRINGE IVFLUSH (16:37)
[2020-10-04] MEDS: Enoxaparin Sodium 40 MG/0.4 ML SYRINGE SUBCUT (16:37)
[2020-10-04] MEDS: vancomycin HCL 1,000 MG in 0.9 % Sodium Chloride 250 ML 270 MG IV (16:37)
[2020-10-04 19:14] VITALS: BP 124/60; PULSE 55; RESP 20; TEMP 36.9; O2SAT 90
[2020-10-04 20:01] LABS: Glucose, Whole Blood 90 mg/dL (60-115)
[2020-10-04] MEDS: ondansetron HCL 4 MG/2 ML VIAL IVPUSH (20:09)
--- NOTE | 2020-10-04 20:44 | PC.NURSE ---
pt had 2x episodes of vomitting, suction post vomiting due to aspiration precautions, md made aware new order for zofran. admin as ordered, will cont to monitor.
[2020-10-04 23:19] VITALS: BP 112/71; PULSE 68; RESP 18; TEMP 37; O2SAT 94
[2020-10-05] MEDS: Piperacillin Sodium/Tazobactam 4.5 GM in 0.9 % Sodium Chloride 100 ML IV ×3 (01:16→11:36)
[2020-10-05 04:00] VITALS: BP 143/81; PULSE 63; RESP 20; TEMP 36.2; O2SAT 92
[2020-10-05] MEDS: Dextrose 5 % and Lactated Ring 1,000 ML 100 ML IVCONT (05:28)
[2020-10-05 06:35] LABS: Hematocrit 27.9 % (42-52); Mean Corpuscular HGB Conc 32.3 g/dl (31.0-36.0); Mean Corpuscular Hemoglobin 29.9 pg (27.0-33.0); Mean Corpuscular Volume 92.7 fL (80-98); Mean Platelet Volume 10.7 fL (9.4-12.4); Platelet Count 141 X10*3/uL (160-400); Red Blood Count 3.01 X10*6/uL (4.60-5.80); Red Cell Distribution Width 17.2 % (11.0-16.0); White Blood Count 9.1 X10*3/uL (4.8-10.8)
[2020-10-05 07:05] LABS: Glucose, Whole Blood 107 mg/dL (60-115)
[2020-10-05 07:13] VITALS: BP 118/72; PULSE 58; RESP 18; TEMP 36.4; O2SAT 93
[2020-10-05 07:20] LABS: Anion Gap 11 (12-20); Blood Urea Nitrogen 14 mg/dL (9-16); Calcium 8.4 mg/dL (8.4-10.2); Carbon Dioxide 24 mmol/L (22-29); Chloride 109 mmol/L (96-108); Creatinine Clr Calc Pharmacy 44.2; Estimated Glomerular Filt Rate 53; Glucose Random 107 mg/dL (60-115); Potassium 3.9 mmol/L (3.3-5.1); Sodium 140 mmol/L (135-145)
--- NOTE | 2020-10-05 10:23 | MHC.SLORD ---
Speech Language Pathology Order Status: TRADE SHOW SPECIALIST completed follow-up to ensure tolerance this date. No overt s/s of aspiration at bedside. Recommend baseline diet of PUREED SOLIDS (NDD 1) with THIN LIQUIDS via 1/2 teaspoons only. Gathered from past MBSS, patient silently aspirates but family requests baseline diet. Following aspiration precautions are recommended: no straws, alternate solids with liquids, present dry spoon to prompt double swallow and check oral cavity, oral care before/after PO intake. TRADE SHOW SPECIALIST will follow up tomorrow morning to ensure tolerance and provide education.
[2020-10-05 11:06] VITALS: BP 117/81; PULSE 62; RESP 18; TEMP 36.3; O2SAT 94
[2020-10-05 11:20] LABS: Glucose, Whole Blood 103 mg/dL (60-115)
[2020-10-05] MEDS: OLANZapine 10 MG TABLET PO (14:04)
[2020-10-05] MEDS: Escitalopram Oxalate 10 MG TABLET 30 MG PO (14:04)
[2020-10-05] MEDS: vancomycin HCL 1,000 MG in 0.9 % Sodium Chloride 250 ML 270 MG IV (14:08)
[2020-10-05] MEDS: Enoxaparin Sodium 40 MG/0.4 ML SYRINGE SUBCUT (14:09)
--- NOTE | 2020-10-05 14:24 | P.PNIM_ITS ---
Subjective Subjective Date of Service: 10/05/20 Interval History: ?fevers ,low blood pressure and concern for aspiration Review of Systems Seems slightly agitated , otherwise seems improving , taper ed oxygen Physical Exam Vital Signs: Vital Signs: Last Vital Signs Temp 97.3 F 10/05/20 11:06 Pulse 62 10/05/20 11:06 Resp 18 10/05/20 11:06 BP 117/81 10/05/20 11:06 Pulse Ox 94 10/05/20 11:06 Body Mass Index 24.0 Cvs: [id number], [id number] , no murmur res: grossly fair air entry,slightly diminshed at bases. abd: no rebound or guarding ,nt, bs present. ext pulses present , no cyanosis neuro: does not speak? at [facility],nonfocal. Objective Data Current Medications Generic Name Dose Route Start Last Admin Trade Name Freq PRN Reason Stop Dose Admin Acetaminophen 650 mg 10/03/20 14:31 Acetaminophen Supp 650 Mg Supp.Rect RI Q6H PRN Pain, Mild (Pain Scale 1-3) Acetaminophen 650 mg 10/05/20 12:31 Acetaminophen 325 Mg Tablet PO Q6H PRN Pain Docusate Sodium 200 mg 10/05/20 21:00 Docusate Sodium 100 Mg Capsule PO BID [facility] Doxazosin Mesylate 8 mg 10/06/20 09:00 Doxazosin Mesylate 2 Mg Tablet PO DAILY [facility] Protocol Enoxaparin Sodium 40 mg 10/03/20 15:00 10/05/20 14:09 Enoxaparin Sodium 40 Mg/0.4 Ml Syringe SUBCUT 40 mg Q24H RODOLFO Administration Escitalopram Oxalate 30 mg 10/06/20 09:00 10/05/20 14:04 Escitalopram Oxalate 10 Mg Tablet PO 30 mg DAILY RODOLFO Administration Finasteride 5 mg 10/06/20 09:00 Finasteride 5 Mg Tablet PO DAILY RODOLFO Guaifenesin/Dextromethorphan 5 ml 10/05/20 12:36 Guaifenesin Dm 100/10/5 Ml 5 Ml Syrup PO Q6H PRN Cough Piperacillin Sod/Tazobactam 100 mls @ 200 mls/hr 10/03/20 17:36 10/05/20 12:21 Sod 4.5 gm/ Sodium Chloride IV Infused Q6H RODOLFO Infusion Vancomycin HCl 1,000 mg/ 270 mls @ 270 mls/hr 10/04/20 15:00 10/05/20 14:08 Sodium Chloride IV 270 mls/hr Q24H RODOLFO Administration Dextrose/Lactated Ringer's 1,000 mls @ 100 mls/hr 10/03/20 18:00 10/05/20 11:42 D5lr IVCONT Not Given .Q10H RODOLFO Loratadine 10 mg 10/06/20 09:00 Loratadine 10 Mg Tablet PO DAILY RODOLFO Magnesium Hydroxide 30 ml 10/05/20 21:00 Milk Of Magnesia 30 Ml Oral.Susp PO BEDTIME RODOLFO Non-Formulary Medication 10 ml 10/05/20 17:00 Aluminum Hydrox-Magnesium Carb [Acid Gone Antacid] PO QIDWMHS RODOLFO Olanzapine 10 mg 10/06/20 09:00 10/05/20 14:04 Olanzapine 10 Mg Tablet PO 10 mg DAILY RODOLFO Administration Olanzapine 20 mg 10/05/20 21:00 Olanzapine 10 Mg Tablet PO BEDTIME RODOLFO Omeprazole 40 mg 10/06/20 06:30 Omeprazole 40 Mg Capsule. PO DAILY@0630 [facility] Pharmacy Consult 1 each 10/03/20 11:01 Consult Rx Perform Med Rec MISCELLANE ONCE PRN Consult order Pharmacy Consult 1 each 10/03/20 14:41 Consult Rx Vancomycin Dosing MISCELLANE DAILY PRN Consult order Polyethylene Glycol 17 gm 10/06/20 09:00 Polyethylene Glycol 3350 17 Gm Powd.Pack PO DAILY [facility] Simethicone 40 mg 10/05/20 16:00 Simethicone 40 Mg/0.6 Ml 30 Ml Drops.Susp PO TID@0800,1600,2000 [facility] Sodium Chloride 3 ml 10/03/20 16:00 10/05/20 08:20 0.9 % Sodium Chloride Flush 3 Ml Syringe IVFLUSH Not Given QSHIFT [facility] Valproic Acid 1,000 mg 10/05/20 21:00 Valproic Acid (As Sodium Salt) 250 Mg/5 Ml Solution PO BID [facility] Labs CBC & Chem 7: 10/05/20 05:37 10/05/20 05:37 Labs: Laboratory Results - last 24 hr 10/04/20 10/04/20 10/05/20 16:08 19:56 05:37 MCV 92.7 MCH 29.9 MCHC 32.3 RDW 17.2 H Plt Count 141 L MPV 10.7 Absolute Nucleated RBC 0.000 Nucleated RBC % (auto) 0.0 Anion Gap Estim Creat Clear Calc Estimated GFR POC Glucose 139 H 90 Random Glucose Calcium 10/05/20 10/05/20 10/05/20 05:37 06:59 11:06 MCV MCH MCHC RDW Plt Count MPV Absolute Nucleated RBC Nucleated RBC % (auto) Anion Gap 11 L Estim Creat Clear Calc 44.2 Estimated GFR 53 POC Glucose 107 103 Random Glucose 107 D Calcium 8.4 Microbiology Microbiology Results: Microbiology 10/03/20 09:57 Blood Culture - Preliminary Blood - Venous No growth after 48 hours. 10/03/20 09:32 Blood Culture - Preliminary Blood - Venous No growth after 48 hours. Assessment and Plan (1) Pneumonia: Status: Acute (2) LINO (acute kidney injury): Status: Acute (3) Aspiration pneumonia: Status: Acute Assessment and Plan: 65 year? with intelectual disability, non verbal at baseline, coming from a group with hypOtension, fever and found to have? pneumonia concerning for Aspiration pneumonia, also has mild LINO and likely dehydration. 1/Sepsis associated with hypOtension due pneumon, sepsis focal performed Pneumonia, likely aspiration type -Zosyn and Vancomyin D2 seems improving blood pressure improved , blood culture negative at 48 hours. 2. LINO--likely renal hypoperfusion, lino improving with IVF and repeat in the morning. 3. Chronic med/Psych issues--continue med per med rec 4. DVT prophylaxis--Lovenox Quality Stroke Does the patient have a stroke diagnosis?: No VTE Prior VTE?: No VTE Risk Level:: Medical - moderate - high VTE Device Contraindication: Treatment Not Indicated VTE Drug Contraindication: N/A - Med Ordered
--- NOTE | 2020-10-05 14:38 | PC.NURSE ---
[address] Ramos. May give AM zyprexa and lexapro now as patient is showing signs of irritation. Clenched hands, moaning. Grabbing at IV and nurse monitoring
--- NOTE | 2020-10-05 15:11 | MHC.CM.PN ---
Male 65 DX PNA Patient lives at a alf in [facility]. He is dependent with all care. DP is to return to the alf. His DETHISTLER OPERATOR will provide transportation at [place]. Mira from the alf is to be called at [place] [phone]. Patient continues to be Hypoxic. He coninues to require oxygen. CM will follow.
[2020-10-05 16:00] VITALS: BP 121/62; PULSE 66; RESP 18; TEMP 37.2; O2SAT 92
[2020-10-05 16:00] LABS: Glucose, Whole Blood 78 mg/dL (60-115)
[2020-10-05 16:18] LABS: Vancomycin Trough 39.7 mcg/mL (10.0-20.0)
[2020-10-05] MEDS: Lactated Ringers 500 ML 80 ML IV (17:43)
[2020-10-05] MEDS: 0.9 % Sodium Chloride Flush 3 ML SYRINGE IVFLUSH (17:43)
[2020-10-05 20:00] VITALS: BP 107/60; PULSE 63; RESP 24; TEMP 37.4; O2SAT 89
[2020-10-05] MEDS: Milk of Magnesia 30 ML ORAL.SUSP PO (21:01)
[2020-10-05] MEDS: OLANZapine 10 MG TABLET 20 MG PO (21:02)
[2020-10-05] MEDS: Amoxicillin/Potassium Clav 875 MG TABLET PO (21:02)
[2020-10-05 21:13] LABS: Glucose, Whole Blood 72 mg/dL (60-115)
[2020-10-05 23:38] VITALS: BP 117/65; PULSE 67; RESP 18; TEMP 36.6; O2SAT 92
[2020-10-06] MEDS: 0.9 % Sodium Chloride Flush 3 ML SYRINGE IVFLUSH ×2 (00:12→09:08)
[2020-10-06 04:00] VITALS: BP 129/72; PULSE 63; RESP 20; TEMP 37; O2SAT 92
[2020-10-06] MEDS: Omeprazole 40 MG CAPSULE.DR PO (05:13)
[2020-10-06 06:33] LABS: Hematocrit 31.1 % (42-52); Mean Corpuscular HGB Conc 32.2 g/dl (31.0-36.0); Mean Corpuscular Hemoglobin 30.2 pg (27.0-33.0); Platelet Count 157 X10*3/uL (160-400); Red Blood Count 3.31 X10*6/uL (4.60-5.80); Red Cell Distribution Width 17.4 % (11.0-16.0); White Blood Count 8.8 X10*3/uL (4.8-10.8)
[2020-10-06 07:02] LABS: Anion Gap 12 (12-20); Blood Urea Nitrogen 13 mg/dL (9-16); Calcium 8.6 mg/dL (8.4-10.2); Carbon Dioxide 27 mmol/L (22-29); Chloride 108 mmol/L (96-108); Creatinine Clr Calc Pharmacy 44.9; Estimated Glomerular Filt Rate 54; Glucose Random 70 mg/dL (60-115); Sodium 143 mmol/L (135-145)
[2020-10-06 07:16] LABS: Glucose, Whole Blood 67 mg/dL (60-115)
[2020-10-06 07:59] VITALS: BP 153/78; PULSE 65; RESP 19; TEMP 36.4; O2SAT 95
[2020-10-06] MEDS: Finasteride 5 MG TABLET PO (09:08)
[2020-10-06] MEDS: polyethylene glycoL 3350 17 GM POWD.PACK PO (09:08)
[2020-10-06] MEDS: Docusate Sodium 100 MG CAPSULE 200 MG PO (09:08)
[2020-10-06 09:09] VITALS: BP 153/78; PULSE 65
[2020-10-06] MEDS: Escitalopram Oxalate 10 MG TABLET 30 MG PO (09:09)
[2020-10-06] MEDS: Loratadine 10 MG TABLET PO (09:09)
[2020-10-06] MEDS: Doxazosin Mesylate 2 MG TABLET 8 MG PO (09:09)
[2020-10-06] MEDS: Amoxicillin/Potassium Clav 875 MG TABLET PO (09:09)
[2020-10-06] MEDS: OLANZapine 10 MG TABLET PO (09:09)
[2020-10-06 10:53] LABS: Glucose, Whole Blood 72 mg/dL (60-115)
[2020-10-06 11:14] VITALS: BP 141/72; PULSE 71; RESP 20; TEMP 36.3; O2SAT 92
--- NOTE | 2020-10-06 11:49 | MHC.SL.SWA ---
Speech Pathologist Impression: Risk of Aspiration Oral Phase Dysphagia Pharyngeal Dysphagia Risk of Aspiration Due to: History of Pneumonia Reduced Cognition Dysphasia Diet Status: No Change Liquid Consistency and Strategies for Safe Swallow: Liquid Intake Recommendation: Thin Liquid Intake Strategies: No Straws Liquids by Teaspoon Only Solid Food Consistency: Dietary Recommendations: Pureed (NDD1) Additional Modifications to Solid Foods: Present via 1/2 teaspoon and follow with dry spoon to elicit double swallow. Oral Medication Intake: Crushed with Puree Compensatory Strategies and Precautions to be Taken for Safe Swallow: Sitting Upright (90 deg) Double Swallow No Straw Liquids from Spoon Small Bites and Sips Alternate Liquids/Solids Oral Check Supervision While Eating and Drinking for Safe Swallow: Total Supervision (1:1) Foods to Avoid: Patient would benefit from repeat MBSS given history of dysphagia and recurrent aspiration pneumonia. Swallowing Recommended Treatments: Compens. Strategy Educat. Recommendation for Speech: Speech Therapy through [facility] Comment: No overt s/s of aspiration seen at bedside. According to July 2019 MBSS, patient is known to aspirate however, patient is on a restrictive modified diet of PUREED SOLIDS (NDD 1) and THIN liquids via 1/2 teaspoon at assisted. Staff members reports that family has wished patient to eat despite the risks. Given history of recurrent aspiration pneumonia, recommended MBSS to trial strategies and determine if PO is safe. However, MBSS not indicated as family has previously opted out of alternative nutrition. EXPLORATION MANAGER reviewed with assisted staff member the importance of oral care and other aspiration precautions. Rigid oral care before and after meals is recommended due to high aspiration risk (at least 4 times daily). EXPLORATION MANAGER to provide education of risks of aspiration during stay. Frequency/Duration: EXPLORATION MANAGER will continue to follow patient during hospitalization to provide education to assisted staff members. Roll On Man Clinican/Clinical Fellow: No Supervisory Statement: I have reviewed and agree with the student/clinical fellow's documentation: N/A Speech Language Pathologist: Luisa Ya M.A., [facility]-EXPLORATION MANAGER
--- NOTE | 2020-10-06 11:50 | P.DS_ITS ---
DS: Providers Provider Date of Service: 10/06/20 Date of admission: 10/03/20 14:32 Primary care physician: Tomy Rangel MD DS: Diagnosis Discharge Diagnosis (1) Pneumonia: Status: Acute (2) LINO (acute kidney injury): Status: Acute (3) Aspiration pneumonia: Status: Acute DS: Medications Discharge Medications Home Medications: Home Medications Medication Instructions Recorded Confirmed aluminum hydrox-magnesium carb 95 10 ml PO QIDWMHS 12/09/19 10/03/20 mg-358 mg/15 mL oral suspension (Acid Gone Antacid) citalopram 20 mg tablet 60 mg PO DAILY 12/09/19 10/03/20 docusate sodium 100 mg capsule 200 mg PO BID 12/09/19 10/03/20 loratadine 10 mg tablet 10 mg PO DAILY 12/09/19 10/03/20 magnesium hydroxide 400 mg/5 mL 30 ml PO BEDTIME 12/09/19 10/03/20 oral suspension (Milk of Magnesia) olanzapine 10 mg tablet 10 mg PO DAILY 12/09/19 10/03/20 olanzapine 20 mg tablet 20 mg PO BEDTIME 12/09/19 10/03/20 omeprazole 20 mg capsule,delayed 40 mg PO DAILY@0630 12/09/19 10/03/20 release polyethylene glycol 3350 17 17 g PO DAILY 12/09/19 10/03/20 gram/dose oral powder simethicone 40 mg/0.6 mL oral 40 mg PO TID@0800,1600,2000 12/09/19 10/03/20 drops,suspension (Gas Relief (simethicone)) valproic acid (as sodium salt) 250 1,000 mg PO BID 12/09/19 10/03/20 mg/5 mL oral solution acetaminophen 325 mg tablet 650 mg PO Q6H PRN 10/03/20 10/03/20 dextromethorphan-guaifenesin 10 10 ml PO Q6H PRN 10/03/20 10/03/20 mg-100 mg/5 mL oral liquid doxazosin 8 mg tablet 8 mg PO DAILY 10/03/20 10/03/20 Previous Rx's Medication Instructions Recorded finasteride 5 mg tablet 5 mg PO DAILY #30 tab 07/28/20 amoxicillin 875 mg-potassium 875 mg PO BID #10 tab 10/06/20 clavulanate 125 mg tablet doxycycline hyclate 100 mg tablet 100 mg PO BID #10 tab 10/06/20 DS: Summary Hospital Course Hospital Course: Date of Service: 10/03/20 Chief Complaint: Fever, low blood pressure and concern for aspiration 65-year-old nonverbal male at baseline with multiple medical issues as listed in PMHx. ? He was found to be hypOtensive at group with SBP in 70s and was febrile according to accompanied by long term staff.? Work up in the ED reviewed WBC of 12, normal lactic acid, CXR shows evidence of PNA in the right upper lobe. He has not been febril here yet, has had episode of low Blood pressure but clinically appear perfused. He has recevid IV Zosyn, he's getting a second liter of fluid bolus, blood cultures sent. He is getting additional? fluid bolus and repeat lactic, he has mild Lino probably from dehydration.? Past medical history Anemia Autism Bipolar 1 disorder Chronic renal disease Developmental non-verbal disorder GERD (gastroesophageal reflux disease) Hiatal hernia Hydrocele Hyperlipemia Hypertension Mentally challenged OCD (obsessive compulsive disorder) Pneumonia Pertinent family history: not available to me Surgical History? H/O exploratory laparotomy History of colectomy Hospital course 65 year? with intelectual disability, non verbal at baseline, coming from a group with hypotension, fever and found to have? pneumonia concerning for Aspiration pneumonia, also has mild LINO patient admitted to medical floor with a diagnosis of Sepsis due to pneumonia, patient treated with IV antibiotics with good response blood cultures x2 were negative WBC normalized, renal function returned to baseline with IV fluid, therefore patient is being discharged home on doxycycline and Augmentin for 5 more days to finish a total 7 day course of treatment , recommend to sit up 30 minutes after each meal In regard to Chronic med/Psych issues recommend to continue home medications. Time Spent with Patient Time attestation: Total time spent providing and/or coordinating discharge services: Discharge coordination time: Greater than 30 minutes Quality: Stroke Does the patient have a stroke diagnosis?: No Physical Exam Vital Signs: Vital Signs: Last Vital Signs Temp 97.3 F 10/06/20 11:14 Pulse 71 10/06/20 11:14 Resp 20 10/06/20 11:14 BP 141/72 H 10/06/20 11:14 Pulse Ox 92 10/06/20 11:14 Body Mass Index 24.0 General resting comfortably in no acute distress. Neck is supple no JVD. CVS regular rate rhythm, Respiratory lungs clear to auscultation, no respiratory distress, no wheeze, no rhonchi, diminished breath sound at bases Gastrointestinal abdomen soft, nontender, bowel sounds audible. Extremities no edema. Neuro nonverbal at baseline, moving all 4 extremity DS: Data Data Completed and Pending Labs on day of discharge: Laboratory Results - last 24 hr 10/05/20 10/05/20 10/05/20 14:32 15:57 21:00 WBC RBC Hgb Hct MCV MCH MCHC RDW Plt Count MPV Absolute Nucleated RBC Nucleated RBC % (auto) Sodium Potassium Chloride Carbon Dioxide Anion Gap BUN Creatinine Estim Creat Clear Calc Estimated GFR POC Glucose 78 72 Random Glucose Calcium Vancomycin Trough 39.7 H* 10/06/20 10/06/20 10/06/20 05:33 05:33 07:07 WBC 8.8 RBC 3.31 L Hgb 10.0 L Hct 31.1 L MCV 94.0 MCH 30.2 MCHC 32.2 RDW 17.4 H Plt Count 157 L MPV 11.0 Absolute Nucleated RBC 0.000 Nucleated RBC % (auto) 0.0 Sodium 143 Potassium 4.0 Chloride 108 Carbon Dioxide 27 Anion Gap 12 BUN 13 Creatinine 1.32 Estim Creat Clear Calc 44.9 Estimated GFR 54 POC Glucose 67 Random Glucose 70 Calcium 8.6 Vancomycin Trough 10/06/20 10:46 WBC RBC Hgb Hct MCV MCH MCHC RDW Plt Count MPV Absolute Nucleated RBC Nucleated RBC % (auto) Sodium Potassium Chloride Carbon Dioxide Anion Gap BUN Creatinine Estim Creat Clear Calc Estimated GFR POC Glucose 72 Random Glucose Calcium Vancomycin Trough Preliminary micro results at discharge 10/03/20 09:57 Blood Culture - Preliminary Blood - Venous No growth after 48 hours. 10/03/20 09:32 Blood Culture - Preliminary Blood - Venous No growth after 48 hours. Discharge Plan Discharge Patient Disposition: Home, Self-Care Discharge Diagnosis: Aspiration pneumonia Acute kidney injury Referrals: Tomy Rangel MD [Primary Care Provider] - 1 Week Discharge Medications: New doxycycline hyclate 100 mg Tablet 100 mg PO BID Qty: 10 RF: 0 amoxicillin-pot clavulanate 875-125 mg Tablet 875 mg PO BID Qty: 10 RF: 0 Continued finasteride 5 mg tablet 5 mg PO DAILY Qty: 30 RF: 6 Acid Gone Antacid 95-358 mg/15 mL suspension 10 ml PO QIDWMHS RF: 0 olanzapine 10 mg tablet 10 mg PO DAILY RF: 0 citalopram 20 mg tablet 60 mg PO DAILY RF: 0 magnesium hydroxide [Milk of Magnesia] 400 mg/5 mL suspension 30 ml PO BEDTIME RF: 0 valproic acid (as sodium salt) 250 mg/5 mL solution 1,000 mg PO BID RF: 0 docusate sodium 100 mg capsule 200 mg PO BID RF: 0 omeprazole 20 mg capsule,delayed release(DR/EC) 40 mg PO DAILY@0630 RF: 0 simethicone [Gas Relief (simethicone)] 40 mg/0.6 mL drops,suspension 40 mg PO TID@0800,1600,2000 RF: 0 polyethylene glycol 3350 17 gram/dose powder 17 g PO DAILY RF: 0 olanzapine 20 mg tablet 20 mg PO BEDTIME RF: 0 loratadine 10 mg tablet 10 mg PO DAILY RF: 0 acetaminophen 325 mg tablet 650 mg PO Q6H PRN (Reason: Pain) RF: 0 dextromethorphan-guaifenesin 10-100 mg/5 mL Liquid 10 ml PO Q6H PRN (Reason: Cough) RF: 0 doxazosin 8 mg tablet 8 mg PO DAILY RF: 0 Discharge Orders: Discharge Order (Routine); Ordered 10/06/20 Ordered By: Tracee Navarro Diet: advance to usual diet Activity on Discharge: As tolerated Stand Alone Forms: Patient Portal Discharge page Care Plan Goals: Take by mouth antibiotic as prescribed, sit up half an hour after eating food Health Concerns: Continue all home medications as before Plan of Treatment: Follow-up with primary care physician and next 7-10 days Assessment: As above
[2020-10-06 15:38] VITALS: BP 116/78; PULSE 110; RESP 18; TEMP 36.6; O2SAT 96
== END 2020-10-06 14:10 | disposition home or self-care (01) | DRG 871 ==
LOC: HO.ED 11:23 → HO.EDOVER 14:48 → HO.IMC 14:49
PROVIDERS: Internal Medicine; Admitting Provider Internal Medicine; Emergency Provider Internal Medicine; PCP Internal Medicine; Visit Provider Hospitalist
DX: A41.9 Sepsis, unspecified organism (principal); J69.0 Pneumonitis due to inhalation of food and vomit; N17.9 Acute kidney failure, unspecified; F31.9 Bipolar disorder, unspecified; I95.9 Hypotension, unspecified; F79 Unspecified intellectual disabilities; Z20.822 Contact with and (suspected) exposure to COVID-19; Z79.899 Other long term (current) drug therapy
CPT/HCPCS: 36415; 71045; 80048; 80076; 80202; 81003; 82378; 82947; 83605; 83615; 85025; 85027; 87040; 87635; 92610; 96361; 96365; 99285; J1650; J2405; J2543; J3370

== ENCOUNTER → 2021-01-31 11:29 | Outpatient (BNVA) | payer MEDICARE, MEDICAID, SELFPAY | PROVIDERS: PCP Internal Medicine; Visit Provider Urology | DX: N32.0 Bladder-neck obstruction (principal); N43.3 Hydrocele, unspecified | CPT/HCPCS: Q3014 ==

== ENCOUNTER 2021-10-14 08:04 | Inpatient (IN) | payer MEDICARE, MEDICAID, SELFPAY ==
--- NOTE | ~2021-10-14 | XR_ITS ---
EXAMINATION: XR CHEST CLINICAL INFORMATION: Cough COMPARISON: October 03, [address] scan of December 09, 2019 TECHNIQUE: AP portable view of the chest was obtained. FINDINGS: There is again noted to be disease within the right upper lobe but which appears to be somewhat improved from previous study. There appears to be some left basilar atelectasis. No pneumothorax or pleural effusion is appreciated. Heart normal size. No evidence of pulmonary edema. There are some distended loops of bowel present similar in appearance to study of October 03, 2020 XR/XR chest 1V IMPRESSION: Some persistent right upper lobe density dating back to CT scan of December 09, 2019
--- NOTE | 2021-10-14 08:12 | ED_ITS ---
HPI - General Adult General Chief complaint: Fever Stated complaint: WEAK W/FEVER FROM [facility] PER EMS Time Seen by Provider: 10/14/21 08:12 Source: patient and EMS Mode of arrival: EMS Limitations: physical limitation (patient is non-verbal) History of Present Illness HPI narrative: Patient is a 66 year old male presenting to the emergency department today with a cough and fever. Patient is non-verbal at [place] line and lives in a shelter. Patient's shelter told EMS that the patient has been coughing and this morning, he had a fever. [facility] stated that the patient has a history of aspiration pneumonia. Onset (ago): hour(s) Severity: mild Severity scale (1-10): 2 Relieving factors: none Exacerbating factors: none Associated symptoms: cough and fever/chills Treatments prior to arrival: none Related Data Home Medications Medication Instructions Recorded Confirmed aluminum hydrox-magnesium carb 95 10 ml PO QIDWMHS 12/09/19 10/03/20 mg-358 mg/15 mL oral suspension (Acid Gone Antacid) citalopram 20 mg tablet 60 mg PO DAILY 12/09/19 10/03/20 docusate sodium 100 mg capsule 200 mg PO BID 12/09/19 10/03/20 loratadine 10 mg tablet 10 mg PO DAILY 12/09/19 10/03/20 magnesium hydroxide 400 mg/5 mL 30 ml PO BEDTIME 12/09/19 10/03/20 oral suspension (Milk of Magnesia) olanzapine 10 mg tablet 10 mg PO DAILY 12/09/19 10/03/20 olanzapine 20 mg tablet 20 mg PO BEDTIME 12/09/19 10/03/20 omeprazole 20 mg capsule,delayed 40 mg PO DAILY@0630 12/09/19 10/03/20 release polyethylene glycol 3350 17 17 g PO DAILY 12/09/19 10/03/20 gram/dose oral powder simethicone 40 mg/0.6 mL oral 40 mg PO TID@0800,1600,2000 12/09/19 10/03/20 drops,suspension (Gas Relief (simethicone)) valproic acid (as sodium salt) 250 1,000 mg PO BID 12/09/19 10/03/20 mg/5 mL oral solution acetaminophen 325 mg tablet 650 mg PO Q6H PRN Pain 10/03/20 10/03/20 dextromethorphan-guaifenesin 10 10 ml PO Q6H PRN Cough 10/03/20 10/03/20 mg-100 mg/5 mL oral liquid Previous Rx's Medication Instructions Recorded amoxicillin 875 mg-potassium 875 mg PO BID #10 tabs 10/06/20 clavulanate 125 mg tablet doxycycline hyclate 100 mg tablet 100 mg PO BID #10 tabs 10/06/20 doxazosin 8 mg tablet 8 mg PO DAILY 90 days #90 tabs 02/02/21 finasteride 5 mg tablet 5 mg PO DAILY 90 days #90 tabs 02/22/21 Allergies Allergy/AdvReac Type Severity Reaction Status Date / Time haloperidol [From HALDOL] AdvReac Unknown UNKNOWN Verified 12/09/19 11:22 metoclopramide [From REGLAN] AdvReac Unknown UNKNOWN Verified 12/09/19 11:22 Review of Systems Review of Systems: Yes Unobtainable due to mental condition (patient is non- verbal at baseline) Constitutional: Constitutional: Reports fever(s) Eyes: Eyes: Reports no additional eye complaints, Denies blurry vision, Denies change in vision, Denies diplopia, Denies eye discharge, Denies loss of vision and Denies eye pain ENT: Denies dizziness Cardiovascular: Cardiovascular: Reports no additional cardiovascular complaints, Denies chest pain, Denies lightheadedness, Denies Loss of Consciousness and Denies dyspnea Respiratory: Respiratory: Reports cough and Denies dyspnea Gastrointestinal: Gastrointestinal: Denies nausea and Denies vomiting Genitourinary: Genitourinary: Reports no additional male genitourinary complaints, Denies hematuria, Denies oliguria, Denies difficulty urinating, Denies dysuria, Denies urinary frequency, Denies urinary hesitancy, Denies urinary incontinence and Denies urinary urgency Musculoskeletal: Musculoskeletal: Reports no additional musculoskeletal complaints, Denies numbness and Denies tingling Neurologic: Denies dizziness, Denies loss of vision, Denies numbness and Denies tingling Psychiatric: Psychiatric: Reports no additional psychiatric complaints Endocrine: Endocrine: Reports no additional endocrine complaints Hematologic/Lymphatic: Hematologic/Lymphatic: Reports no additional hematologic/lymphatic complaints Allergic/Immunologic: Allergic/Immunologic: Reports no additional allergic/immunologic complaints PMFSH Past Medical History Attestation statement: The following information was validated with the patient. Source: old records reviewed Medical History Anemia Autism Bipolar 1 disorder Chronic renal disease Developmental non-verbal disorder GERD (gastroesophageal reflux disease) Hiatal hernia Hydrocele Hyperlipemia Hypertension Mentally challenged OCD (obsessive compulsive disorder) Pneumonia Surgical History H/O exploratory laparotomy History of colectomy Social History Social History Household Members: Other Household Members Other:: patient lives at shelter Housing: Other Housing Other:: [facility] Do you presently have visiting nurse or other home services: Yes Alcohol intake: never Patient Tobacco Use Status: Never used Tobacco Advance Directives: No Advance Directives Information Provided: No service: No Current occupational status: disabled Physical Exam ED Vital Signs: Vital Signs - 24 hr 10/14/21 08:23 Temperature 100.1 F Pulse Rate 88 Respiratory Rate 22 H Blood Pressure 106/64 Pulse Oximetry 96 Oxygen Delivery Method Room Air BMI result Body Mass Index 24.7 Const General: cooperative, no acute distress, alert and awake Nutritional Appearance: well nourished Limitations: no limitations HENMT Head: Yes normal to inspection and Yes atraumatic Ears: hearing grossly normal bilaterally and external ears normal General nose exam: Normal external nose present, no nasal discharge noted and no epistaxis Face and sinus: Yes normal facial exam, No abrasion and No laceration Mouth: Normal oral and palatal mucosa present, no drooling and no muffled voice Eyes General: appearance normal, both eyes and all related structures Periorbital: periorbital findings normal Eyelids: Yes eyelids normal Conjunctivae: conjunctivae normal Pupils: Equal, round and reactive pupils present EOM: EOMs intact bilaterally Neck Neck: Yes normal visual inspection, Yes full ROM and Yes no lymphadenopathy Chest Chest palpation & inspection: normal inspection of the chest Resp Effort & Inspection: normal respiratory effort, able to speak in complete sentences and Actively coughing Auscultation: rales bilateral and diffuse Cardio Rate: regular rate Rhythm: regular rhythm GI Inspection: Yes normal to inspection Neuro General: moves all extremities Cranial nerves: Yes Equal, round and reactive pupils present Cognition (Neuro): abnormal cognition (per his baseline) Extrem General: Yes normal to inspection, Yes full ROM and Yes capillary refill normal Psych Appearance: grossly normal Mental Status: mental status grossly normal Affect: normal affect Attitude: cooperative Thought process: Normal thought process present Thought content: Normal thought content present Insight: Good insight present (Psych) Medical Decision Making MDM Narrative Medical decision making narrative: Patient is a 66 year old male presenting to the emergency department today with a cough and fever. Patient's physical exam showed a non-verbal, cognitively delayed, individual with bilateral and diffuse rales and cough. Patient's blood work showed an elevated WBC count of 10.9 but was otherwise unremarkable. Sheldon woodward's urine is pending at this time. Patient's EKG was unremarkable. Patient's chest x-ray showed disease within the right upper lobe. Patient is not septic and the patient's clinical picture is not consistent with sepsis. I explained my physical exam findings as well as all test results to the patient. Patient received was given IV Zosyn. I spoke to Dr. Floyd, who agreed to hospital admission. Differential Diagnosis Differential Diagnosis: aspiration PNA Medical Records Medical records reviewed: Yes I reviewed the patient's medical records. Lab Data Lab results reviewed: Yes I reviewed the patient's lab results. Result diagrams: 10/14/21 09:12 10/14/21 09:12 Labs: Lab Results 10/14/21 10/14/21 10/14/21 Range/Units 09:12 09:12 09:12 WBC 10.9 H (4.8-10.8) X10*3/uL RBC 3.43 L (4.60-5.80) X10*6/uL Hgb 10.5 L (14.0-18.0) g/dl Hct 32.0 L (42.0-52.0) % MCV 93.3 (80.0-98.0) fL MCH 30.6 (27.0-33.0) pg MCHC 32.8 (31.0-36.0) g/dl RDW 16.4 H (11.0-16.0) % Plt Count 263 (160-400) X10*3/uL MPV 9.2 L (9.4-12.4) fL Immature Gran % (Auto) 0.3 (0.0-0.4) % Neut % (Auto) 79.0 H (45-73) % Lymph % (Auto) 7.7 L (20-40) % [place] % (Auto) 12.1 H (2-11) % Eos % (Auto) 0.6 (0-4) % Baso % (Auto) 0.3 (0-2) % Lymph # (Auto) 0.8 L (1.2-4.9) X10*3/uL [place] # (Auto) 1.3 H (0.1-1.2) X10*3/uL Eos # (Auto) 0.1 (0.0-0.4) X10*3/uL Baso # (Auto) 0.0 (0.0-0.2) X10*3/uL Abs Immat Gran (auto) 0.03 (0.00-0.03) X10*3/uL Absolute Neuts (auto) 8.6 H (2.0-8.3) x10*3/uL Absolute Nucleated RBC 0.000 (0.0-0.012) X10*3/uL Nucleated RBC % (auto) 0.0 (0.0-0.2) /100WBC PT 11.6 (10.0-13.1) SEC INR 1.0 (0.9-1.1) APTT 33.9 (26.0-36.4) SEC VBG pH (7.32-7.43) VBG pCO2 mmHg VBG pO2 mmHg VBG HCO3 (22-26) mmol/L VBG O2 Saturation % VBG Base Excess mmol/L Sodium 141 (135-145) mmol/L Potassium 3.9 (3.3-5.1) mmol/L Chloride 100 (96-108) mmol/L Carbon Dioxide 33 H (22-29) mmol/L Anion Gap 12 (12-20) BUN 17 H (9-16) mg/dL Creatinine 1.31 (0.5-1.4) mg/dL Estim Creat Clear Calc 44.6 Estimated GFR 55 Random Glucose 81 (60-115) mg/dL Lactic Acid (0.5-2.0) mmol/L Calcium 9.2 D (8.4-10.2) mg/dL Magnesium 2.5 (1.6-2.6) mg/dL Total Bilirubin 0.3 (0.0-1.0) mg/dL AST 27 (5-37) U/L ALT 16 (0-40) U/L Alkaline Phosphatase 107 D (39-117) U/L Troponin I High Sens (<3.5-35.0) ng/L Total Protein 8.5 H (6.5-8.0) g/dL Albumin 3.5 (3.5-5.0) g/dL COVID-19 (SUNNI) (Negative) COVID-19 Clin Com 10/14/21 10/14/21 10/14/21 Range/Units 09:12 09:12 09:12 WBC (4.8-10.8) X10*3/uL RBC (4.60-5.80) X10*6/uL Hgb (14.0-18.0) g/dl Hct (42.0-52.0) % MCV (80.0-98.0) fL MCH (27.0-33.0) pg MCHC (31.0-36.0) g/dl RDW (11.0-16.0) % Plt Count (160-400) X10*3/uL MPV (9.4-12.4) fL Immature Gran % (Auto) (0.0-0.4) % Neut % (Auto) (45-73) % Lymph % (Auto) (20-40) % [place] % (Auto) (2-11) % Eos % (Auto) (0-4) % Baso % (Auto) (0-2) % Lymph # (Auto) (1.2-4.9) X10*3/uL [place] # (Auto) (0.1-1.2) X10*3/uL Eos # (Auto) (0.0-0.4) X10*3/uL Baso # (Auto) (0.0-0.2) X10*3/uL Abs Immat Gran (auto) (0.00-0.03) X10*3/uL Absolute Neuts (auto) (2.0-8.3) x10*3/uL Absolute Nucleated RBC (0.0-0.012) X10*3/uL Nucleated RBC % (auto) (0.0-0.2) /100WBC PT (10.0-13.1) SEC INR (0.9-1.1) APTT (26.0-36.4) SEC VBG pH (7.32-7.43) VBG pCO2 mmHg VBG pO2 mmHg VBG HCO3 (22-26) mmol/L VBG O2 Saturation % VBG Base Excess mmol/L Sodium (135-145) mmol/L Potassium (3.3-5.1) mmol/L Chloride (96-108) mmol/L Carbon Dioxide (22-29) mmol/L Anion Gap (12-20) BUN (9-16) mg/dL Creatinine (0.5-1.4) mg/dL Estim Creat Clear Calc Estimated GFR Random Glucose (60-115) mg/dL Lactic Acid 1.3 (0.5-2.0) mmol/L Calcium (8.4-10.2) mg/dL Magnesium (1.6-2.6) mg/dL Total Bilirubin (0.0-1.0) mg/dL AST (5-37) U/L ALT (0-40) U/L Alkaline Phosphatase (39-117) U/L Troponin I High Sens 6.1 (<3.5-35.0) ng/L Total Protein (6.5-8.0) g/dL Albumin (3.5-5.0) g/dL COVID-19 (SUNNI) Negative (Negative) COVID-19 Clin Com See Note 10/14/21 Range/Units 09:19 WBC (4.8-10.8) X10*3/uL RBC (4.60-5.80) X10*6/uL Hgb (14.0-18.0) g/dl Hct (42.0-52.0) % MCV (80.0-98.0) fL MCH (27.0-33.0) pg MCHC (31.0-36.0) g/dl RDW (11.0-16.0) % Plt Count (160-400) X10*3/uL MPV (9.4-12.4) fL Immature Gran % (Auto) (0.0-0.4) % Neut % (Auto) (45-73) % Lymph % (Auto) (20-40) % [place] % (Auto) (2-11) % Eos % (Auto) (0-4) % Baso % (Auto) (0-2) % Lymph # (Auto) (1.2-4.9) X10*3/uL [place] # (Auto) (0.1-1.2) X10*3/uL Eos # (Auto) (0.0-0.4) X10*3/uL Baso # (Auto) (0.0-0.2) X10*3/uL Abs Immat Gran (auto) (0.00-0.03) X10*3/uL Absolute Neuts (auto) (2.0-8.3) x10*3/uL Absolute Nucleated RBC (0.0-0.012) X10*3/uL Nucleated RBC % (auto) (0.0-0.2) /100WBC PT (10.0-13.1) SEC INR (0.9-1.1) APTT (26.0-36.4) SEC VBG pH 7.45 H (7.32-7.43) VBG pCO2 47 mmHg VBG pO2 52 mmHg VBG HCO3 33 H (22-26) mmol/L VBG O2 Saturation 78.0 % VBG Base Excess 8.5 mmol/L Sodium (135-145) mmol/L Potassium (3.3-5.1) mmol/L Chloride (96-108) mmol/L Carbon Dioxide (22-29) mmol/L Anion Gap (12-20) BUN (9-16) mg/dL Creatinine (0.5-1.4) mg/dL Estim Creat Clear Calc Estimated GFR Random Glucose (60-115) mg/dL Lactic Acid (0.5-2.0) mmol/L Calcium (8.4-10.2) mg/dL Magnesium (1.6-2.6) mg/dL Total Bilirubin (0.0-1.0) mg/dL AST (5-37) U/L ALT (0-40) U/L Alkaline Phosphatase (39-117) U/L Troponin I High Sens (<3.5-35.0) ng/L Total Protein (6.5-8.0) g/dL Albumin (3.5-5.0) g/dL COVID-19 (SUNNI) (Negative) COVID-19 Clin Com Imaging Data Chest x-ray: Attestation: I personally reviewed and interpreted this imaging study as follows: My impression: Disease present in right upper lobe Radiologist's impression: EXAMINATION: XR CHEST CLINICAL INFORMATION: Cough COMPARISON: October 03, [address] scan of December 09, 2019 TECHNIQUE: AP portable view of the chest was obtained. FINDINGS: There is again noted to be disease within the right upper lobe but which appears to be somewhat improved from previous study. There appears to be some left basilar atelectasis. No pneumothorax or pleural effusion is appreciated. Heart normal size. No evidence of pulmonary edema. There are some distended loops of bowel present similar in appearance to study of October 03, 2020 XR/XR chest 1V IMPRESSION: Some persistent right upper lobe density dating back to CT scan of December 09, 2019 Dictated By: Andrés Burk MD Signed By: Electronically signed by Andrés Burk MD 10/14/21 0973 ECG Data Attestation: I personally reviewed and interpreted this ECG as follows: Prior ECG tracings: available for review Interpretation: Vent. Rate: 091 BPM ? ? Atrial Rate: 091 BPM P-R Int: 162 ms? QRS Dur: 084 ms QT Int: 380 ms ? ? ? P-R-T Axes: 062 037 057 degrees QTc Int: 467 ms ? Normal sinus rhythm Nonspecific ST abnormality Abnormal ECG When compared with ECG of 24-JUL-2019 00:18, No significant change was found DD/ 0910 Discharge Plan Discharge Clinical Impression: Aspiration pneumonia Patient Disposition: Admitted As Inpatient Prescriptions: No Action doxazosin 8 mg tablet 8 mg PO DAILY 90 Days Qty: 90 3RF finasteride 5 mg tablet 5 mg PO DAILY 90 Days Qty: 90 3RF Acid Gone Antacid 95-358 mg/15 mL suspension 10 ml PO QIDWMHS olanzapine 10 mg tablet 10 mg PO DAILY citalopram 20 mg tablet 60 mg PO DAILY magnesium hydroxide [Milk of Magnesia] 400 mg/5 mL suspension 30 ml PO BEDTIME valproic acid (as sodium salt) 250 mg/5 mL solution 1,000 mg PO BID docusate sodium 100 mg capsule 200 mg PO BID omeprazole 20 mg capsule,delayed release(DR/EC) 40 mg PO DAILY@0630 simethicone [Gas Relief (simethicone)] 40 mg/0.6 mL drops,suspension 40 mg PO TID@0800,1600,2000 polyethylene glycol 3350 17 gram/dose powder 17 g PO DAILY olanzapine 20 mg tablet 20 mg PO BEDTIME loratadine 10 mg tablet 10 mg PO DAILY acetaminophen 325 mg tablet 650 mg PO Q6H PRN (Reason: Pain) dextromethorphan-guaifenesin 10-100 mg/5 mL Liquid 10 ml PO Q6H PRN (Reason: Cough) doxycycline hyclate 100 mg Tablet 100 mg PO BID Qty: 10 0RF amoxicillin-pot clavulanate 875-125 mg Tablet 875 mg PO BID Qty: 10 0RF Print Language: Occitan
--- NOTE | 2021-10-14 08:22 | ECG_ITS ---
Test Reason : fever cough Blood Pressure : / mmHG Vent. Rate : 091 BPM Atrial Rate : 091 BPM P-R Int : 162 ms QRS Dur : 084 ms QT Int : 380 ms P-R-T Axes : 062 037 057 degrees QTc Int : 467 ms Normal sinus rhythm Nonspecific ST abnormality Abnormal ECG When compared with ECG of 24-JUL-2019 00:18, Nonspecific ST abnormality is now Present Referred By: Karla Knight Electronically Signed By:JEANNIE PRIETO
[2021-10-14 08:23] VITALS: BP 106/64; BP 106/67; PULSE 88; PULSE 92; RESP 22; TEMP 37.8; O2SAT 95; O2SAT 96; BMI 24.7
[2021-10-14 09:24] LABS: VBG Base Excess 8.5 mmol/L; VBG HCO3 33 mmol/L (22-26); VBG pCO2 47 mmHg; VBG pH 7.45 (7.32-7.43); VBG pO2 52 mmHg
[2021-10-14 09:27] LABS: MANUAL DIFF FLAG NO
[2021-10-14 09:28] LABS: Basophils Percent Auto 0.3 % (0-2); Eosinophils Absolute Auto 0.1 X10*3/uL (0.0-0.4); Eosinophils Percent Auto 0.6 % (0-4); Hemoglobin 10.5 g/dl (14.0-18.0); Imm Gran Abs Auto 0.03 X10*3/uL (0.00-0.03); Imm Gran Pct Auto 0.3 % (0.0-0.4); Lymphocytes Absolute Auto 0.8 X10*3/uL (1.2-4.9); Lymphocytes Percent Auto 7.7 % (20-40); Mean Corpuscular HGB Conc 32.8 g/dl (31.0-36.0); Mean Corpuscular Hemoglobin 30.6 pg (27.0-33.0); Mean Corpuscular Volume 93.3 fL (80.0-98.0); Mean Platelet Volume 9.2 fL (9.4-12.4); Monocytes Absolute Auto 1.3 X10*3/uL (0.1-1.2); Monocytes Percent Auto 12.1 % (2-11); Neutrophils Absolute Auto 8.6 x10*3/uL (2.0-8.3); Platelet Count 263 X10*3/uL (160-400); Red Blood Count 3.43 X10*6/uL (4.60-5.80); Red Cell Distribution Width 16.4 % (11.0-16.0); White Blood Count 10.9 X10*3/uL (4.8-10.8)
[2021-10-14 09:33] LABS: Venous Blood Gas Refer to POC result
[2021-10-14 09:34] LABS: Prothrombin Time 11.6 SEC (10.0-13.1)
[2021-10-14 09:36] LABS: Partial Thromboplastin Time 33.9 SEC (26.0-36.4)
[2021-10-14 09:37] LABS: Lactic Acid 1.3 mmol/L (0.5-2.0)
[2021-10-14 09:43] LABS: Alanine Aminotransferase 16 U/L (0-40); Albumin Level 3.5 g/dL (3.5-5.0); Alkaline Phosphatase 107 U/L (39-117); Anion Gap 12 (12-20); Aspartate Amino Transferase 27 U/L (5-37); Bilirubin Total 0.3 mg/dL (0.0-1.0); Blood Urea Nitrogen 17 mg/dL (9-16); Calcium 9.2 mg/dL (8.4-10.2); Carbon Dioxide 33 mmol/L (22-29); Chloride 100 mmol/L (96-108); Creatinine Clr Calc Pharmacy 44.6; Estimated Glomerular Filt Rate 55; Glucose Random 81 mg/dL (60-115); Magnesium 2.5 mg/dL (1.6-2.6); Potassium 3.9 mmol/L (3.3-5.1); Sodium 141 mmol/L (135-145); Total Protein 8.5 g/dL (6.5-8.0)
[2021-10-14 09:50] LABS: Troponin-I High Sensitivity 6.1 ng/L (<3.5-35.0)
[2021-10-14 09:58] LABS: COVID-19 Test Negative (Negative); IDNOW Serial# 16C4AD1C
[2021-10-14] MEDS: Acetaminophen Supp 650 MG SUPP.RECT PR (10:04)
[2021-10-14] MEDS: Piperacillin Sodium/Tazobactam 4.5 GM in 0.9 % Sodium Chloride 100 ML IV (10:05)
--- NOTE | 2021-10-14 11:23 | PHA.MEDREC ---
Pharmacy Consult ? Medication Reconciliation Pharmacy has completed the medication reconciliation. Had med list from [facility]
[2021-10-14 11:36] VITALS: BP 87/48; PULSE 75; RESP 17
--- NOTE | 2021-10-14 11:41 | PM.IMHP ---
History of Present Illness Date of Service: 10/14/21 Attending physician on admission: Bolivar Floyd Chief Complaint: Fever, cough This is a 66-year-old [facility], nonverbal at baseline who was sent to the emergency department today due to fever and cough. Reportedly he began having fever this morning as well as a ?junky? cough. As patient is nonverbal he is unable to provide any history himself. In the emergency department he had low-grade fever of 100.1, was not noted to be hypoxic. Chest x-ray showed persistent right upper lobe density which is chronic from previous. COVID-19 was negative. He was given a dose of IV Zosyn and the decision was made to admit him to the hospital for further management of probable aspiration pneumonia. Review of Systems Review of Systems: Yes Unobtainable due to mental condition Constitutional: Constitutional: Reports chills and Reports fever(s) [facility] Medical History (Updated 10/14/21 @ 11:46 by OFELIA Kendrick) Anemia Autism Bipolar 1 disorder BPH (benign prostatic hyperplasia) Chronic renal disease Developmental non-verbal disorder Dysphagia GERD (gastroesophageal reflux disease) Hiatal hernia Hydrocele Hyperlipemia Hypertension Mentally challenged OCD (obsessive compulsive disorder) [place] Pneumonia Seizures Pertinent family history: unable to be obtained due to on-verbal baseline Surgical History H/O exploratory laparotomy History of colectomy Social History Household Members: Other Household Members Other:: [facility] Housing: Other Housing Other:: residential Do you presently have visiting nurse or other home services: Yes Alcohol intake: never Patient Tobacco Use Status: Never used Tobacco Advance Directives: No Advance Directives Information Provided: No service: No Current occupational status: disabled Meds Allergies Allergy/AdvReac Type Severity Reaction Status Date / Time haloperidol [From HALDOL] AdvReac Unknown UNKNOWN Verified 12/09/19 11:22 metoclopramide [From REGLAN] AdvReac Unknown UNKNOWN Verified 12/09/19 11:22 Active Medications: Current Medications Acetaminophen (Acetaminophen 325 Mg Tablet) 650 mg PO Q6H PRN PRN Reason: Pain, Mild (Pain Scale 1-3) Acetaminophen (Acetaminophen Supp 650 Mg Supp.Rect) 650 mg CO Q6H PRN PRN Reason: Pain, Mild (Pain Scale 1-3) Docusate Sodium (Docusate Sodium 100 Mg Capsule) 100 mg PO DAILY PRN PRN Reason: Constipation Enoxaparin Sodium (Enoxaparin Sodium 40 Mg/0.4 Ml Syringe) 40 mg SUBCUT Q24H COUNTS INCLUDE 234 BEDS AT THE [facility] Ampicillin Sodium/Sulbactam (Sodium 1.5 gm/ Sodium Chloride) 100 mls @ 200 mls/hr IV Q6H COUNTS INCLUDE 234 BEDS AT THE [facility] Pharmacy Consult (Consult Rx Perform Med Rec) 1 each MISCELLANE ONCE PRN PRN Reason: Consult order Sodium Chloride (0.9 % Sodium Chloride Flush 3 Ml Syringe) 3 ml IVFLUSH QSHIFT COUNTS INCLUDE 234 BEDS AT THE [facility] Home Medications Medication Instructions Recorded Confirmed Last Taken Type aluminum hydrox-magnesium carb 95 10 ml PO QIDWMHS 12/09/19 10/14/21 Unknown History mg-358 mg/15 mL oral suspension (Acid Gone Antacid) citalopram 20 mg tablet 60 mg PO DAILY 12/09/19 10/14/21 10/02/20 History docusate sodium 100 mg capsule 200 mg PO BID 12/09/19 10/14/21 10/02/20 History loratadine 10 mg tablet 10 mg PO DAILY 12/09/19 10/14/21 10/02/20 History magnesium hydroxide 400 mg/5 mL 30 ml PO BEDTIME 12/09/19 10/14/21 10/02/20 History oral suspension (Milk of Magnesia) olanzapine 10 mg tablet 10 mg PO DAILY 12/09/19 10/14/21 10/02/20 History olanzapine 20 mg tablet 20 mg PO BEDTIME 12/09/19 10/14/21 10/02/20 History omeprazole 20 mg capsule,delayed 40 mg PO DAILY@0630 12/09/19 10/14/21 10/02/20 History release polyethylene glycol 3350 17 17 g PO BID 12/09/19 10/14/21 10/02/20 History gram/dose oral powder simethicone 40 mg/0.6 mL oral 40 mg PO TID@0800,1600,2000 12/09/19 10/14/21 10/02/20 History drops,suspension (Gas Relief (simethicone)) valproic acid (as sodium salt) 250 1,000 mg PO BID 12/09/19 10/14/21 Unknown History mg/5 mL oral solution acetaminophen 325 mg tablet 650 mg PO Q6H PRN Pain 10/03/20 10/14/21 Unknown History dextromethorphan-guaifenesin 10 10 ml PO Q6H PRN Cough 10/03/20 10/14/21 Unknown History mg-100 mg/5 mL oral liquid Physical Exam Vital Signs and Narrative: Vital Signs: Last Vital Signs Temp 100.1 F 10/14/21 08:23 Pulse 88 10/14/21 08:23 Resp 22 H 10/14/21 08:23 BP 106/64 10/14/21 08:23 Pulse Ox 96 10/14/21 08:23 O2 Del Method 10/14/21 08:23 BMI result Body Mass Index 24.7 Const: General: healthy appearing, alert and awake Nutritional Appearance: average body habitus Resp: Effort & Inspection: normal respiratory effort Auscultation: diminished lung sounds Cardio: Rate: regular rate Heart sounds: S1 normal heart sound present and S2 normal heart sound present GI: Inspection: No distended Palpation (GI): Soft to palpation and nontender Neuro: Other: awake and alert; not really following commands Extrem: General: Yes no pedal edema Results Labs CBC and Chem 7: 10/14/21 09:12 10/14/21 09:12 Labs: Laboratory Results - last 24 hr 10/14/21 10/14/21 10/14/21 09:12 09:12 09:12 MCV 93.3 MCH 30.6 MCHC 32.8 RDW 16.4 H Plt Count 263 MPV 9.2 L Immature Gran % (Auto) 0.3 Neut % (Auto) 79.0 H Lymph % (Auto) 7.7 L [place] % (Auto) 12.1 H Eos % (Auto) 0.6 Baso % (Auto) 0.3 Lymph # (Auto) 0.8 L [place] # (Auto) 1.3 H Eos # (Auto) 0.1 Baso # (Auto) 0.0 Abs Immat Gran (auto) 0.03 Absolute Neuts (auto) 8.6 H Absolute Nucleated RBC 0.000 Nucleated RBC % (auto) 0.0 PT 11.6 INR 1.0 APTT 33.9 VBG pH VBG pCO2 VBG pO2 VBG HCO3 VBG O2 Saturation VBG Base Excess Anion Gap 12 Estim Creat Clear Calc 44.6 Estimated GFR 55 Random Glucose 81 Lactic Acid Calcium 9.2 D Magnesium 2.5 Total Bilirubin 0.3 AST 27 ALT 16 Alkaline Phosphatase 107 D Total Protein 8.5 H Albumin 3.5 COVID-19 (SUNNI) COVID-19 Clin Com 10/14/21 10/14/21 10/14/21 09:12 09:12 09:19 MCV MCH MCHC RDW Plt Count MPV Immature Gran % (Auto) Neut % (Auto) Lymph % (Auto) [place] % (Auto) Eos % (Auto) Baso % (Auto) Lymph # (Auto) [place] # (Auto) Eos # (Auto) Baso # (Auto) Abs Immat Gran (auto) Absolute Neuts (auto) Absolute Nucleated RBC Nucleated RBC % (auto) PT INR APTT VBG pH 7.45 H VBG pCO2 47 VBG pO2 52 VBG HCO3 33 H VBG O2 Saturation 78.0 VBG Base Excess 8.5 Anion Gap Estim Creat Clear Calc Estimated GFR Random Glucose Lactic Acid 1.3 Calcium Magnesium Total Bilirubin AST ALT Alkaline Phosphatase Total Protein Albumin COVID-19 (SUNNI) Negative COVID-19 Clin Com See Note Imaging Radiologist's Impressions: Impressions Chest X-Ray 10/14/21 09:34 IMPRESSION: Some persistent right upper lobe density dating back to CT scan of December 09, 2019 Assessment and Plan (1) Aspiration pneumonia: Status: Acute Plan This is a 66-year-old male, [facility] resident and nonverbal at baseline who was brought to the emergency department due to cough and fever found to have probable aspiration pneumonia Aspiration pneumonia No evidence of sepsis Currently stable on room air -IV Unasyn -p.r.n. breathing treatments -follow-up blood cultures -speech eval -aspiration precautions Mood Continue baseline meds BPH Continue Proscar, Cardura Chronic constipation Continue baseline bowel regimen DVT prophylaxis-Lovenox Code status-full code Patient will likely require 2 midnight stay in the hospital for treatment aspiration pneumonia Quality Stroke Does the patient have a stroke diagnosis?: No VTE Prior VTE?: No VTE Risk Level:: Medical - moderate - high VTE Device Contraindication: N/A - Device Ordered VTE Drug Contraindication: N/A - Med Ordered
--- NOTE | 2021-10-14 11:53 | PC.NURSE ---
Pt is nonverbal at baseline. Pt presents with a fever and weakness. Pt was brought in by EMS, staff from the half-way was more weaker than normal because he usually able to help with transfers and was not able to do so. h/o aspiration pneumonia
[2021-10-14 12:48] VITALS: BP 86/32; O2SAT 95
[2021-10-14] MEDS: 0.9 % Sodium Chloride 1,000 ML 999 ML IV (13:01)
[2021-10-14] MEDS: Enoxaparin Sodium 40 MG/0.4 ML SYRINGE SUBCUT (13:55)
[2021-10-14] MEDS: Lactated Ringers 1,000 ML 100 ML IVCONT (14:51)
[2021-10-14 17:04] VITALS: BP 125/56; PULSE 135; RESP 17; TEMP 37; O2SAT 98
[2021-10-14] MEDS: Magnesium Hydrox/Alum Hydrox 30 ML ORAL.SUSP 10 ML PO ×2 (17:44→20:12)
[2021-10-14] MEDS: Ampicillin Sodium/Sulbactam Na 1.5 GM in 0.9 % Sodium Chloride 100 ML IV (17:44)
[2021-10-14] MEDS: 0.9 % Sodium Chloride Flush 3 ML SYRINGE IVFLUSH ×2 (17:45→20:14)
[2021-10-14 19:24] VITALS: BP 114/63; PULSE 72; RESP 18; TEMP 37; O2SAT 96
[2021-10-14] MEDS: Milk of Magnesia 30 ML ORAL.SUSP PO (20:12)
[2021-10-14] MEDS: OLANZapine 10 MG TABLET 20 MG PO (20:13)
[2021-10-14] MEDS: Docusate Sodium 100 MG CAPSULE 200 MG PO (20:13)
[2021-10-14] MEDS: polyethylene glycoL 3350 17 GM POWD.PACK PO (20:14)
[2021-10-15] VITALS (8 sets, daily range): BP systolic 111–158; BP diastolic 56–76; PULSE 71–94; RESP 17–20; TEMP 36.1–37; O2SAT 92–97
[2021-10-15] MEDS: Ampicillin Sodium/Sulbactam Na 1.5 GM in 0.9 % Sodium Chloride 100 ML IV ×5 (00:11→21:31)
[2021-10-15] MEDS: Lactated Ringers 1,000 ML 100 ML IVCONT ×3 (01:23→22:13)
[2021-10-15 07:14] LABS: Hematocrit 29.5 % (42.0-52.0); Hemoglobin 9.5 g/dl (14.0-18.0); Mean Corpuscular HGB Conc 32.2 g/dl (31.0-36.0); Mean Corpuscular Hemoglobin 31.1 pg (27.0-33.0); Mean Corpuscular Volume 96.7 fL (80.0-98.0); Mean Platelet Volume 9.6 fL (9.4-12.4); Platelet Count 234 X10*3/uL (160-400); Red Blood Count 3.05 X10*6/uL (4.60-5.80); Red Cell Distribution Width 16.6 % (11.0-16.0); White Blood Count 11.7 X10*3/uL (4.8-10.8)
[2021-10-15 07:38] LABS: Anion Gap 12 (12-20); Blood Urea Nitrogen 16 mg/dL (9-16); Calcium 8.5 mg/dL (8.4-10.2); Carbon Dioxide 28 mmol/L (22-29); Chloride 108 mmol/L (96-108); Creatinine Clr Calc Pharmacy 51.7; Estimated Glomerular Filt Rate > 60; Glucose Random 73 mg/dL (60-115); Potassium 4.6 mmol/L (3.3-5.1); Sodium 143 mmol/L (135-145)
[2021-10-15] MEDS: polyethylene glycoL 3350 17 GM POWD.PACK PO ×3 (09:16→21:24)
[2021-10-15] MEDS: Loratadine 10 MG TABLET PO (09:19)
[2021-10-15] MEDS: OLANZapine 10 MG TABLET PO (09:19)
[2021-10-15] MEDS: Finasteride 5 MG TABLET PO (09:20)
[2021-10-15] MEDS: Docusate Sodium 100 MG CAPSULE 200 MG PO ×2 (09:20→20:03)
[2021-10-15] MEDS: Escitalopram Oxalate 10 MG TABLET 30 MG PO (09:20)
[2021-10-15] MEDS: Doxazosin Mesylate 2 MG TABLET 8 MG PO (09:20)
[2021-10-15] MEDS: Magnesium Hydrox/Alum Hydrox 30 ML ORAL.SUSP 10 ML PO ×4 (09:21→20:00)
--- NOTE | 2021-10-15 11:31 | P.PNIM_ITS ---
Subjective Subjective Date of Service: 10/15/21 Interval History: Seen and examined this morning Follow-up for aspiration pneumonia Blood pressure low yesterday afternoon. Improving with fluids. No overnight events Patient nonverbal at baseline, unable to obtain review of systems. Observed lying in bed, appears comfortable, in no acute distress. Review of Systems Review of Systems: Yes Unobtainable due to mental condition Physical Exam Vital Signs: Vital Signs: Last Vital Signs Temp 98 F 10/15/21 11:09 Pulse 94 10/15/21 11:09 Resp 18 10/15/21 11:09 BP 111/59 L 10/15/21 11:09 Pulse Ox 95 10/15/21 11:09 O2 Del Method 10/15/21 11:09 BMI result Body Mass Index 24.7 Const: General: alert and awake Nutritional Appearance: average body habitus Resp: Effort & Inspection: normal respiratory effort Auscultation: diminished lung sounds Cardio: Rate: regular rate Heart sounds: S1 normal heart sound present and S2 normal heart sound present GI: Inspection: No distended Palpation (GI): Soft to palpation and nontender Neuro: Other: awake and alert; not really following commands Extrem: General: Yes no pedal edema Objective Data Active Medications Acetaminophen (Acetaminophen 325 Mg Tablet) 650 mg PO Q6H PRN PRN Reason: Pain, Mild (Pain Scale 1-3) Acetaminophen (Acetaminophen Supp 650 Mg Supp.Rect) 650 mg MI Q6H PRN PRN Reason: Pain, Mild (Pain Scale 1-3) Al Hydroxide/Mg Hydroxide (Magnesium Hydrox/Alum Hydrox 30 Ml Oral.Susp) 10 ml PO QIDWMHS [facility] Last Admin: 10/15/21 09:21 Dose: 10 ml Documented By: BECKY Albuterol Sulfate (Albuterol Sulfate (0.042%) 1.25 Mg/3 Ml Vial.Neb) 1.25 mg INHALE RQ4H PRN PRN Reason: Shortness of Breath Docusate Sodium (Docusate Sodium 100 Mg Capsule) 100 mg PO DAILY PRN PRN Reason: Constipation Docusate Sodium (Docusate Sodium 100 Mg Capsule) 200 mg PO BID [facility] Last Admin: 10/15/21 09:20 Dose: 200 mg Documented By: BECKY Doxazosin Mesylate (Doxazosin Mesylate 2 Mg Tablet) 8 mg PO DAILY [facility]; Protocol Last Admin: 10/15/21 09:20 Dose: 8 mg Documented By: BECKY Enoxaparin Sodium (Enoxaparin Sodium 40 Mg/0.4 Ml Syringe) 40 mg SUBCUT Q24H [facility] Last Admin: 10/14/21 13:55 Dose: 40 mg Documented By: JHONATAN Escitalopram Oxalate (Escitalopram Oxalate 10 Mg Tablet) 30 mg PO DAILY [facility] Last Admin: 10/15/21 09:20 Dose: 30 mg Documented By: BECKY Finasteride (Finasteride 5 Mg Tablet) 5 mg PO DAILY [facility] Last Admin: 10/15/21 09:20 Dose: 5 mg Documented By: BECKY Ampicillin Sodium/Sulbactam (Sodium 1.5 gm/ Sodium Chloride) 100 mls @ 200 mls/hr IV Q6H [facility] Last Infusion: 10/15/21 10:03 Dose: 200 mls/hr Documented By: BECKY Lactated Ringer's (Lr) 1,000 mls @ 100 mls/hr IVCONT .Q10H [facility] Last Admin: 10/15/21 10:01 Dose: 100 mls/hr Documented By: BECKY Loratadine (Loratadine 10 Mg Tablet) 10 mg PO DAILY [facility] Last Admin: 10/15/21 09:19 Dose: 10 mg Documented By: BECKY Magnesium Hydroxide (Milk Of Magnesia 30 Ml Oral.Susp) 30 ml PO BEDTIME [facility] Last Admin: 10/14/21 20:12 Dose: 30 ml Documented By: JOCELYNE Non-Formulary Medication (Dextromethorphan-Guaifenesin) 10 ml PO Q6H PRN PRN Reason: Cough Olanzapine (Olanzapine 10 Mg Tablet) 10 mg PO DAILY [facility] Last Admin: 10/15/21 09:19 Dose: 10 mg Documented By: BECKY Olanzapine (Olanzapine 10 Mg Tablet) 20 mg PO BEDTIME [facility] Last Admin: 10/14/21 20:13 Dose: 20 mg Documented By: JOCELYNE Omeprazole (Omeprazole 40 Mg Capsule.) 40 mg PO DAILY@0630 [facility] Last Admin: 10/15/21 05:31 Dose: Not Given Documented By: JOCELYNE Non-Admin Reason: Unable to crush med Pharmacy Consult (Consult Rx Perform Med Rec) 1 each MISCELLANE ONCE PRN PRN Reason: Consult order Polyethylene Glycol (Polyethylene Glycol 3350 17 Gm Powd.Pack) 17 gm PO BID [facility] Last Admin: 10/15/21 09:16 Dose: 17 gm Documented By: BECKY Simethicone (Simethicone 40 Mg/0.6 Ml 30 Ml Drops.Susp) 40 mg PO TID@0800,1600,2000 [facility] Last Admin: 10/15/21 09:17 Dose: 40 mg Documented By: BECKY Sodium Chloride (0.9 % Sodium Chloride Flush 3 Ml Syringe) 3 ml IVFLUSH QSHIFT [facility] Last Admin: 10/15/21 09:21 Dose: Not Given Documented By: BECKY Non-Admin Reason: IV Running Valproic Acid (Valproic Acid (As Sodium Salt) 250 Mg/5 Ml Solution) 1,000 mg PO BID [facility] Last Admin: 10/15/21 09:20 Dose: 1,000 mg Documented By: BECKY Labs CBC & Chem 7: 10/15/21 06:58 10/15/21 06:58 Labs: Laboratory Results - last 24 hr 10/15/21 10/15/21 06:58 06:58 MCV 96.7 MCH 31.1 MCHC 32.2 RDW 16.6 H Plt Count 234 MPV 9.6 Absolute Nucleated RBC 0.000 Nucleated RBC % (auto) 0.0 Anion Gap 12 Estim Creat Clear Calc 51.7 Estimated GFR > 60 Random Glucose 73 Calcium 8.5 D Microbiology Microbiology Results: Microbiology 10/14/21 09:12 Blood Culture - Preliminary Blood - Venous No growth after 24 hours. 10/14/21 09:12 Blood Culture - Preliminary Blood - Venous No growth after 24 hours. Assessment and Plan (1) Aspiration pneumonia: Status: Acute Plan This is a 66-year-old male, alf resident and nonverbal at baseline who was brought to the emergency department due to cough and fever found to have probable aspiration pneumonia Aspiration pneumonia No evidence of sepsis Currently stable on room air Blood cultures negative times 24 hours -Continue IV Unasyn Day #2 -p.r.n. breathing treatments -speech eval - continue purreed diet for now. has had MBSS in past - per alf -family has not wanted gtube in past as patient derives great pleasure from eating -aspiration precautions Mood Continue baseline meds BPH Continue Proscar, Cardura Chronic constipation Continue baseline bowel regimen * patient has severe PICA and will eat anything within reach. Discussed with nurse/staff not to leave anything in reach of patient. Close observation warranted. 1:1 sitter for safety DVT prophylaxis-Lovenox Code status-full code Attending - Dr. Masters Patient requires ongoing inpatient hospitalization for IV antibiotics and management of aspiration pneumonia, speech evaluation Quality Stroke Does the patient have a stroke diagnosis?: No VTE Prior VTE?: No VTE Risk Level:: Medical - moderate - high VTE Device Contraindication: N/A - Device Ordered VTE Drug Contraindication: N/A - Med Ordered
[2021-10-15] MEDS: Enoxaparin Sodium 40 MG/0.4 ML SYRINGE SUBCUT (14:09)
[2021-10-15] MEDS: 0.9 % Sodium Chloride Flush 3 ML SYRINGE IVFLUSH (19:57)
[2021-10-15] MEDS: Milk of Magnesia 30 ML ORAL.SUSP PO (20:00)
[2021-10-15] MEDS: OLANZapine 10 MG TABLET 20 MG PO (20:00)
[2021-10-16 03:21] VITALS: BP 140/62; PULSE 76; RESP 18; TEMP 36.6; O2SAT 94
[2021-10-16] MEDS: Ampicillin Sodium/Sulbactam Na 1.5 GM in 0.9 % Sodium Chloride 100 ML IV ×4 (04:21→21:14)
[2021-10-16 05:59] LABS: Hematocrit 30.7 % (42.0-52.0); Hemoglobin 9.8 g/dl (14.0-18.0); Mean Corpuscular HGB Conc 31.9 g/dl (31.0-36.0); Mean Corpuscular Hemoglobin 30.3 pg (27.0-33.0); Mean Platelet Volume 9.3 fL (9.4-12.4); Platelet Count 239 X10*3/uL (160-400); Red Blood Count 3.23 X10*6/uL (4.60-5.80); Red Cell Distribution Width 16.6 % (11.0-16.0); White Blood Count 9.3 X10*3/uL (4.8-10.8)
[2021-10-16] MEDS: Omeprazole 40 MG CAPSULE.DR PO (06:01)
[2021-10-16 08:13] VITALS: BP 146/64; PULSE 63; RESP 16; TEMP 36; O2SAT 95
[2021-10-16] MEDS: Doxazosin Mesylate 2 MG TABLET 8 MG PO (09:28)
[2021-10-16] MEDS: Loratadine 10 MG TABLET PO (09:28)
[2021-10-16] MEDS: OLANZapine 10 MG TABLET PO (09:29)
[2021-10-16] MEDS: 0.9 % Sodium Chloride Flush 3 ML SYRINGE IVFLUSH ×2 (09:29→16:55)
[2021-10-16] MEDS: Escitalopram Oxalate 10 MG TABLET 30 MG PO (09:29)
[2021-10-16] MEDS: polyethylene glycoL 3350 17 GM POWD.PACK PO (09:30)
[2021-10-16] MEDS: Magnesium Hydrox/Alum Hydrox 30 ML ORAL.SUSP 10 ML PO ×4 (09:30→21:13)
--- NOTE | 2021-10-16 09:53 | MHC.CM.PN ---
met with pt and [facility] staff that is [facility] with pt ..called and spoke with [facility] he lioves and has 24 hr care asked that pts guardianship paperwork be faxed to [facility] office his sister edilia is his guardian [phone] pt is non verbal and non ambulatory he is covid vax x 4 we will need to arrange amb back to prison paperwork from [facility] will be placed on chart
[2021-10-16] MEDS: Lactated Ringers 1,000 ML 100 ML IVCONT (10:10)
[2021-10-16] MEDS: Docusate Sodium 100 MG CAPSULE 200 MG PO (10:14)
[2021-10-16] MEDS: Finasteride 5 MG TABLET PO (10:14)
--- NOTE | 2021-10-16 11:06 | P.PNIM_ITS ---
Subjective Subjective Date of Service: 10/16/21 Interval History: Seen and examined this morning Follow-up for aspiration pneumonia No overnight events Patient nonverbal at baseline, unable to obtain review of systems. Observed lying in bed, appears comfortable, in no acute distress. Review of Systems Review of Systems: Yes Unobtainable due to mental condition Physical Exam Vital Signs: Vital Signs: Last Vital Signs Temp 96.8 F 10/16/21 08:13 Pulse 63 10/16/21 08:13 Resp 16 10/16/21 08:13 BP 146/64 H 10/16/21 08:13 Pulse Ox 95 10/16/21 08:13 O2 Del Method 10/16/21 08:13 BMI result Body Mass Index 24.7 Appearing in no acute distress lung sounds are clear to auscultation heart regular rate rhythm, clear S1, S2 positive bowel sounds, abdomen is soft, nontender neuro patient is alert Objective Data Active Medications Acetaminophen (Acetaminophen 325 Mg Tablet) 650 mg PO Q6H PRN PRN Reason: Pain, Mild (Pain Scale 1-3) Acetaminophen (Acetaminophen Supp 650 Mg Supp.Rect) 650 mg AR Q6H PRN PRN Reason: Pain, Mild (Pain Scale 1-3) Al Hydroxide/Mg Hydroxide (Magnesium Hydrox/Alum Hydrox 30 Ml Oral.Susp) 10 ml PO QIDWMHS [facility] Last Admin: 10/16/21 09:30 Dose: 10 ml Documented By: RONIT Albuterol Sulfate (Albuterol Sulfate (0.042%) 1.25 Mg/3 Ml Vial.Neb) 1.25 mg INHALE RQ4H PRN PRN Reason: Shortness of Breath Docusate Sodium (Docusate Sodium 100 Mg Capsule) 100 mg PO DAILY PRN PRN Reason: Constipation Docusate Sodium (Docusate Sodium 100 Mg Capsule) 200 mg PO BID [facility] Last Admin: 10/15/21 20:01 Dose: Not Given Documented By: JULES Non-Admin Reason: unable to swallow Doxazosin Mesylate (Doxazosin Mesylate 2 Mg Tablet) 8 mg PO DAILY [facility]; Protocol Last Admin: 10/16/21 09:28 Dose: 8 mg Documented By: RONIT Enoxaparin Sodium (Enoxaparin Sodium 40 Mg/0.4 Ml Syringe) 40 mg SUBCUT Q24H [facility] Last Admin: 10/15/21 14:09 Dose: 40 mg Documented By: BECKY Escitalopram Oxalate (Escitalopram Oxalate 10 Mg Tablet) 30 mg PO DAILY [facility] Last Admin: 10/16/21 09:29 Dose: 30 mg Documented By: RONIT Finasteride (Finasteride 5 Mg Tablet) 5 mg PO DAILY [facility] Last Admin: 10/16/21 10:14 Dose: 5 mg Documented By: RONIT Ampicillin Sodium/Sulbactam (Sodium 1.5 gm/ Sodium Chloride) 100 mls @ 200 mls/hr IV Q6H [facility] Last Infusion: 10/16/21 10:16 Dose: 0 mls/hr Documented By: RONIT Lactated Ringer's (Lr) 1,000 mls @ 100 mls/hr IVCONT .Q10H [facility] Last Admin: 10/16/21 10:10 Dose: 100 mls/hr Documented By: RONIT Loratadine (Loratadine 10 Mg Tablet) 10 mg PO DAILY [facility] Last Admin: 10/16/21 09:28 Dose: 10 mg Documented By: RONIT Magnesium Hydroxide (Milk Of Magnesia 30 Ml Oral.Susp) 30 ml PO BEDTIME [facility] Last Admin: 10/15/21 20:00 Dose: 30 ml Documented By: JULES Non-Formulary Medication (Dextromethorphan-Guaifenesin) 10 ml PO Q6H PRN PRN Reason: Cough Olanzapine (Olanzapine 10 Mg Tablet) 10 mg PO DAILY [facility] Last Admin: 10/16/21 09:29 Dose: 10 mg Documented By: RONIT Olanzapine (Olanzapine 10 Mg Tablet) 20 mg PO BEDTIME [facility] Last Admin: 10/15/21 20:00 Dose: 20 mg Documented By: JULES Omeprazole (Omeprazole 40 Mg Capsule.Dr) 40 mg PO DAILY@0630 [facility] Last Admin: 10/16/21 06:01 Dose: 40 mg Documented By: JUELS Pharmacy Consult (Consult Rx Perform Med Rec) 1 each MISCELLANE ONCE PRN PRN Reason: Consult order Polyethylene Glycol (Polyethylene Glycol 3350 17 Gm Powd.Pack) 17 gm PO BID [facility] Last Admin: 10/15/21 20:07 Dose: 17 gm Documented By: JULES Simethicone (Simethicone 40 Mg/0.6 Ml 30 Ml Drops.Susp) 40 mg PO TID@0800,1600,2000 [facility] Last Admin: 10/16/21 09:30 Dose: 40 mg Documented By: RONIT Sodium Chloride (0.9 % Sodium Chloride Flush 3 Ml Syringe) 3 ml IVFLUSH QSHIFT [facility] Last Admin: 10/16/21 09:29 Dose: 3 ml Documented By: RONIT Valproic Acid (Valproic Acid (As Sodium Salt) 250 Mg/5 Ml Solution) 1,000 mg PO BID [facility] Last Admin: 10/16/21 09:29 Dose: 1,000 mg Documented By: RONIT Labs CBC & Chem 7: 10/16/21 05:27 10/15/21 06:58 Labs: Laboratory Results - last 24 hr 10/16/21 05:27 MCV 95.0 MCH 30.3 MCHC 31.9 RDW 16.6 H Plt Count 239 MPV 9.3 L Absolute Nucleated RBC 0.000 Nucleated RBC % (auto) 0.0 Microbiology Microbiology Results: Microbiology 10/14/21 09:12 Blood Culture - Preliminary Blood - Venous No growth after 24 hours. 10/14/21 09:12 Blood Culture - Preliminary Blood - Venous No growth after 24 hours. Assessment and Plan (1) Aspiration pneumonia: Status: Acute Plan This is a 66-year-old male, [facility] resident and nonverbal at baseline who was brought to the emergency department due to cough and fever found to have probable aspiration pneumonia Aspiration pneumonia No evidence of sepsis Currently stable on room air Blood cultures negative times 24 hours Continue IV Unasyn p.r.n. breathing treatments speech eval - continue purreed diet for now. has had MBSS in past - per [facility] -family has not wanted gtube in past as patient derives great pleasure from eating aspiration precautions Mood Continue baseline meds BPH Continue Proscar, Cardura Chronic constipation Continue baseline bowel regimen * patient has severe PICA and will eat anything within reach. Discussed with nurse/staff not to leave anything in reach of patient. Close observation warranted. 1:1 sitter for safety DVT prophylaxis-Lovenox Code status-full code Attending - Dr. Manrique Patient requires ongoing inpatient hospitalization for IV antibiotics and management of aspiration pneumonia, speech evaluation Quality Stroke Does the patient have a stroke diagnosis?: No VTE Prior VTE?: No VTE Risk Level:: Medical - moderate - high VTE Device Contraindication: N/A - Device Ordered VTE Drug Contraindication: N/A - Med Ordered
[2021-10-16 12:00] VITALS: BP 133/58; PULSE 62; RESP 16; TEMP 36.1; O2SAT 95
[2021-10-16] MEDS: Enoxaparin Sodium 40 MG/0.4 ML SYRINGE SUBCUT (13:27)
[2021-10-16 15:43] VITALS: BP 131/60; PULSE 71; RESP 16; TEMP 36.6; O2SAT 95
--- NOTE | 2021-10-16 17:22 | MHC.SLORD ---
Speech Language Pathology Order Status: PLASTICS FABRICATION SUPERVISOR received an order for a bedside swallow entered by Greer GILBERT. This pt is familiar to PLASTICS FABRICATION SUPERVISOR, as pt was seen numerous times for recurrent aspiration pneumonia [id number]. Pt had previous MBSS done elsewhere reportedly showing silent aspiration. Pt is known to chronically aspirate. senior care staff indicated back in 2019 and 2020 that pt's family wished for pt to still eat despite the risks, they did not want pt to have a g-tube, previously opted out of all alterative means, as pt gets great pleasure from eating. Pt was eating a pureed diet and thin liquids by half teaspoon w/ strategies: oral care before and after PO intake, small bites, check oral cavity, spoon to elicit double swallow, liquid wash. Today I met w/ the patient in his room and FORESTRY AID from the care home was present. FORESTRY AID reported that there have been no changes- Reportedly pt's family does not wish for pt to have g-tube and wants pt to be fed PO. Because there are no changes, per Nusrat Mendoza consult will be cancelled.
[2021-10-16 19:16] VITALS: BP 159/64; PULSE 66; RESP 20; TEMP 36.2; O2SAT 95
[2021-10-16] MEDS: OLANZapine 10 MG TABLET 20 MG PO (21:12)
[2021-10-16] MEDS: Milk of Magnesia 30 ML ORAL.SUSP PO (21:13)
[2021-10-16 23:25] VITALS: BP 116/83; PULSE 61; RESP 18; TEMP 36.4; O2SAT 93
[2021-10-17 03:22] VITALS: BP 136/84; PULSE 70; RESP 18; TEMP 36.3; O2SAT 96
[2021-10-17] MEDS: Ampicillin Sodium/Sulbactam Na 1.5 GM in 0.9 % Sodium Chloride 100 ML IV ×3 (03:39→15:00)
[2021-10-17] MEDS: Omeprazole 40 MG CAPSULE.DR PO (06:05)
[2021-10-17 07:28] VITALS: BP 126/83; PULSE 66; RESP 12; TEMP 36.1; O2SAT 97
[2021-10-17] MEDS: Magnesium Hydrox/Alum Hydrox 30 ML ORAL.SUSP 10 ML PO ×2 (07:48→11:37)
[2021-10-17] MEDS: 0.9 % Sodium Chloride Flush 3 ML SYRINGE IVFLUSH ×2 (07:49→15:37)
[2021-10-17] MEDS: Docusate Sodium 100 MG CAPSULE 200 MG PO (07:49)
[2021-10-17] MEDS: Doxazosin Mesylate 2 MG TABLET 8 MG PO (07:50)
[2021-10-17] MEDS: Finasteride 5 MG TABLET PO (07:50)
[2021-10-17] MEDS: Loratadine 10 MG TABLET PO (07:50)
[2021-10-17] MEDS: Escitalopram Oxalate 10 MG TABLET 30 MG PO (07:51)
[2021-10-17] MEDS: polyethylene glycoL 3350 17 GM POWD.PACK PO (07:52)
[2021-10-17] MEDS: OLANZapine 10 MG TABLET PO (07:52)
[2021-10-17 11:54] VITALS: BP 120/67; PULSE 67; RESP 15; TEMP 36.2; O2SAT 94
--- NOTE | 2021-10-17 12:01 | PM.DS ---
DS: Providers Provider Date of Service: 10/17/21 Date of admission: 10/14/21 11:35 Primary care physician: Tomy Rangel MD Attending physician on discharge: Valentín Manrique Discharging clinician: Nusrat Mendoza DS: Diagnosis Discharge Diagnosis (1) Aspiration pneumonia: Status: Acute DS: Summary Hospital Course Hospital Course: HP as per admitting provider This is a 66-year-old shelter resident, nonverbal at baseline who was sent to the emergency department today due to fever and cough.? Reportedly he began having fever this morning as well as a ?junky? cough.? As patient is nonverbal he is unable to provide any history himself.? In the emergency department he had low-grade fever of 100.1, was not noted to be hypoxic.? Chest x-ray showed persistent right upper lobe density which is chronic from previous.? COVID-19 was negative.? He was given a dose of IV Zosyn and the decision was made to admit him to the hospital for further management of probable aspiration pneumonia . Aspiration pneumonia No evidence of sepsis No hypoxia Blood cultures negative Initially treated with IV Unasyn changed to Augmentin complete treatment for aspiration pneumonia speech eval - continue purreed diet for now. has had MBSS in past - per shelter -family has not wanted gtube in past as patient derives great pleasure from eating Mood Continue baseline meds BPH Continue Proscar, Cardura Chronic constipation Continue baseline bowel regimen Time Spent with Patient Time attestation: Total time spent providing and/or coordinating discharge services: Discharge coordination time: Greater than 30 minutes Quality: Safe Use of Opioids Does Pt have an Active Cancer Diagnosis on the Problem List?: No Quality: Stroke Does the patient have a stroke diagnosis?: No Physical Exam Vital Signs: Vital Signs: Last Vital Signs Temp 97.1 F 10/17/21 11:54 Pulse 67 10/17/21 11:54 Resp 15 10/17/21 11:54 BP 120/67 10/17/21 11:54 Pulse Ox 94 10/17/21 11:54 O2 Del Method 10/17/21 11:54 BMI result Body Mass Index 24.7 Appearing in no acute distress head is normocephalic atraumatic eyes pupils are PERRLA sclera is anicteric mouth throat mucous membranes are intact and moist neck is supple no lymphadenopathy, no JVD noted lung sounds are clear to auscultation heart regular rate rhythm, clear S1, S2 positive bowel sounds, abdomen is soft, nontender neuro patient is alert, nonverbal DS: Data Data Completed and Pending Labs on day of discharge: Preliminary micro results at discharge 10/14/21 09:12 Blood Culture - Preliminary Blood - Venous No growth after 48 hours. 10/14/21 09:12 Blood Culture - Preliminary Blood - Venous No growth after 48 hours. Discharge Plan Discharge Anticipated Discharge Date/Time: 10/17/21 11:02 Patient Disposition: Xfer Other Discharge Diagnosis: Aspiration pneumonia Referrals: Tomy Rangel MD [Primary Care Provider] - 1 Week Discharge Medications: New amoxicillin-pot clavulanate 875-125 mg tablet 1 tab PO BID Qty: 14 0RF Continued doxazosin 8 mg tablet 8 mg PO DAILY 90 Days Qty: 90 3RF finasteride 5 mg tablet 5 mg PO DAILY 90 Days Qty: 90 3RF Acid Gone Antacid 95-358 mg/15 mL suspension 10 ml PO QIDWMHS olanzapine 10 mg tablet 10 mg PO DAILY citalopram 20 mg tablet 60 mg PO DAILY magnesium hydroxide [Milk of Magnesia] 400 mg/5 mL suspension 30 ml PO BEDTIME valproic acid (as sodium salt) 250 mg/5 mL solution 1,000 mg PO BID docusate sodium 100 mg capsule 200 mg PO BID omeprazole 20 mg capsule,delayed release(DR/EC) 40 mg PO DAILY@0630 simethicone [Gas Relief (simethicone)] 40 mg/0.6 mL drops,suspension 40 mg PO TID@0800,1600,2000 polyethylene glycol 3350 17 gram/dose powder 17 g PO BID olanzapine 20 mg tablet 20 mg PO BEDTIME loratadine 10 mg tablet 10 mg PO DAILY acetaminophen 325 mg tablet 650 mg PO Q6H PRN (Reason: Pain) dextromethorphan-guaifenesin 10-100 mg/5 mL Liquid 10 ml PO Q6H PRN (Reason: Cough) Discharge Orders: Discharge Order (Routine); Ordered 10/17/21 Ordered By: Nusrat Mendoza Diet: Advance to usual diet Activity on Discharge: As tolerated Stand Alone Forms: Patient Portal Discharge page Print Language: Mauritian Care Plan Goals: Speech Pathologist Impression: Risk of Aspiration Oral Phase Dysphagia Pharyngeal Dysphagia Risk of Aspiration Due to: History of Pneumonia Reduced Cognition Dysphasia Diet Status: No Change Liquid Consistency and Strategies for Safe Swallow: Liquid Intake Recommendation: Thin Liquid Intake Strategies: No StrawsLiquids by Teaspoon Only Solid Food Consistency: Dietary Recommendations: Pureed (NDD1) Additional Modifications to Solid Foods: Present via 1/2 teaspoon and follow with dry spoon to elicit double swallow. Oral Medication Intake: Crushed with Puree Compensatory Strategies and Precautions to be Taken for Safe Swallow: Sitting Upright (90 deg)Double Swallow No Straw Liquids from Spoon Small Bites and Sips Alternate Liquids/Solids Oral Check Supervision While Eating and Drinking for Safe Swallow: Total Supervision (1:1) Foods to Avoid: Patient would benefit from repeat MBSS given history of dysphagia and recurrent aspiration pneumonia. Swallowing Recommended Treatments: Compens. Strategy Educat. Recommendation for Speech: Speech Therapy through [facility] Comment: No overt s/s of aspiration seen at bedside. According to July 2019 MBSS, patient is known to aspirate however, patient is on a restrictive modified diet of PUREED SOLIDS (NDD 1) and THIN liquids via 1/2 teaspoon at shelter. Staff members reports that family has wished patient to eat despite the risks. Given history of recurrent aspiration pneumonia, recommended MBSS to trial strategies and determine if PO is safe. However, MBSS not indicated as family has previously opted out of alternative nutrition. GRAPHIC SPECIALIST reviewed with shelter staff member the importance of oral care and other aspiration precautions. Rigid oral care before and after meals is recommended due to high aspiration risk (at least 4 times daily). GRAPHIC SPECIALIST to provide education of risks of aspiration during stay. Frequency/Duration: GRAPHIC SPECIALIST will continue to follow patient during hospitalization to provide education to shelter staff members. Health Concerns: Aspiration pneumonia Plan of Treatment: Complete a course of antibiotics for aspiration pneumonia follow-up with her primary care provider as needed Assessment: See discharge summary
[2021-10-17] MEDS: Enoxaparin Sodium 40 MG/0.4 ML SYRINGE SUBCUT (13:41)
--- NOTE | 2021-10-17 13:43 | MHC.CM.PN ---
IMM 10/16/21 Male 66 DX Aspiration PNA. He is discharged today. He will return to his retirement via BLS @ request of [facility] nurse Demi Mcduffie RN. Transport is booked for 4pm. All discharge info has been faxed to the retirement for review. One medication has been added Amoxicillin. All pages of [facility] orders have been signed.
== END 2021-10-17 16:40 | disposition other institution (70) | DRG 179 ==
LOC: HO.ED 10:15 → HO.EDOVER 11:50 → HO.IMC 15:30
PROVIDERS: Physician Assistant Medical; Admitting Provider Physician Assistant Medical; Emergency Provider Emergency Medicine; PCP Internal Medicine; Visit Provider Nurse Practitioner Acute Care
DX: J69.0 Pneumonitis due to inhalation of food and vomit (principal); E78.5 Hyperlipidemia, unspecified; N40.0 Benign prostatic hyperplasia without lower urinary tract symptoms; F31.9 Bipolar disorder, unspecified; K59.09 Other constipation; I10 Essential (primary) hypertension; F50.89 Other specified eating disorder; Z20.822 Contact with and (suspected) exposure to COVID-19; Z68.24 Body mass index [BMI] 24.0-24.9, adult; Z88.8 Allergy status to other drugs, medicaments and biological substances; Z79.899 Other long term (current) drug therapy
CPT/HCPCS: 36415; 71045; 80048; 80053; 82803; 83605; 83735; 84484; 85025; 85027; 85610; 85730; 87040; 87635; 93005; 96365; 99285; J0295; J1650; J2543

== ENCOUNTER 2021-12-24 06:37 | Inpatient (IN) | payer MEDICARE, MEDICAID, SELFPAY ==
[2021-12-24] VITALS (9 sets, daily range): BP systolic 90–124; BP diastolic 44–82; PULSE 71–95; RESP 18–28; TEMP 36.4–36.7; O2SAT 93–98; BMI 24.7
--- NOTE | ~2021-12-24 | XR_ITS ---
EXAMINATION: XR CHEST CLINICAL INFORMATION: Cough. COMPARISON: Chest x-ray dated 10/14/2021. Chest CT dated 12/09/2019. TECHNIQUE: Portable AP view of the chest was obtained. XR/XR chest 1V FINDINGS/IMPRESSION: The study is limited by portable technique, low lung volumes, and rotation. Allowing for differences in technique and inspiration, bilateral interstitial and alveolar infiltrates remain, right worse than left, with relative sparing of the left upper lung field. These findings appear mildly worse compared with 10/14/2021, allowing for differences in technique. No effusion or pneumothorax is seen. The cardiac silhouette and mediastinum appear unremarkable. There are mild degenerative changes of the spine.
--- NOTE | 2021-12-24 06:54 | ECG_ITS ---
Test Reason : aspiration Blood Pressure : / mmHG Vent. Rate : 081 BPM Atrial Rate : 081 BPM P-R Int : 148 ms QRS Dur : 084 ms QT Int : 382 ms P-R-T Axes : 064 034 052 degrees QTc Int : 443 ms Normal sinus rhythm Nonspecific ST abnormality Intra-ventricular conduction delay Abnormal ECG When compared with ECG of 14-OCT-2021 09:10, No significant change was found Referred By: Herrrea Mike Electronically Signed By:MARLON CHAPA MD
--- NOTE | 2021-12-24 06:57 | ED_ITS ---
HPI - General Adult General Chief complaint: Upper Respiratory Symptoms Stated complaint: sob Time Seen by Provider: 12/24/21 06:49 Source: EMS and other (staff at the senior care) Mode of arrival: EMS Limitations: other (non verbal) History of Present Illness HPI narrative: This is 66 years old the patient from the senior care presented because difficulty breathing and lethargy. Patient at baseline he is nonverbal, he does not follow command. [place] staff at the senior care a he was assisted to the bathroom around 05:45 a when his breathing became shallow and he was tachycardic. The patient has multiple medical problem which include intellectual disability, OCD, dysphagia with aspiration pneumonitis, hyper tension, DI, history of seizure disorder, anemia chronic renal failure, small- bowel obstruction. Onset (ago): hour(s) (2) Location: chest Pain Consistency: now resolved Relieving factors: none Related Data Home Medications Medication Instructions Recorded Confirmed aluminum hydrox-magnesium carb 95 10 ml PO QIDWMHS 12/09/19 12/24/21 mg-358 mg/15 mL oral suspension (Acid Gone Antacid) citalopram 20 mg tablet 60 mg PO DAILY 12/09/19 12/24/21 docusate sodium 100 mg capsule 200 mg PO BID 12/09/19 12/24/21 loratadine 10 mg tablet 10 mg PO DAILY 12/09/19 12/24/21 olanzapine 10 mg tablet 10 mg PO DAILY 12/09/19 12/24/21 olanzapine 20 mg tablet 20 mg PO BEDTIME 12/09/19 12/24/21 omeprazole 20 mg capsule,delayed 40 mg PO DAILY@1630 12/09/19 12/24/21 release polyethylene glycol 3350 17 17 g PO BID 12/09/19 12/24/21 gram/dose oral powder simethicone 40 mg/0.6 mL oral 40 mg PO TID@0800,1600,2000 12/09/19 12/24/21 drops,suspension (Gas Relief (simethicone)) valproic acid (as sodium salt) 250 1,000 mg PO BID 12/09/19 12/24/21 mg/5 mL oral solution acetaminophen 325 mg tablet 650 mg PO Q6H PRN Pain 10/03/20 12/24/21 dextromethorphan-guaifenesin 10 10 ml PO Q6H PRN Cough 10/03/20 12/24/21 mg-100 mg/5 mL oral liquid bacitracin zinc 500 unit/gram 1 appl topical BID PRN Wound Care 12/24/21 12/24/21 topical ointment wheat dextrin 3 gram/3.5 gram oral 1 packet PO BID 12/24/21 12/24/21 powder (Best Fiber) Previous Rx's Medication Instructions Recorded doxazosin 8 mg tablet 8 mg PO DAILY 90 days #90 tabs 02/02/21 finasteride 5 mg tablet 5 mg PO DAILY 90 days #90 tabs 02/22/21 Allergies Allergy/AdvReac Type Severity Reaction Status Date / Time haloperidol [From HALDOL] AdvReac Unknown UNKNOWN Verified 12/09/19 11:22 metoclopramide [From REGLAN] AdvReac Unknown UNKNOWN Verified 12/09/19 11:22 Review of Systems Review of Systems: Yes Unobtainable due to mental condition PMFSH Past Medical History Medical History Anemia Autism Bipolar 1 disorder BPH (benign prostatic hyperplasia) Chronic renal disease Developmental non-verbal disorder Dysphagia GERD (gastroesophageal reflux disease) Hiatal hernia Hydrocele Hyperlipemia Hypertension Mentally challenged OCD (obsessive compulsive disorder) Pica Pneumonia Seizures Surgical History H/O exploratory laparotomy History of colectomy Social History Social History Household Members: Unknown / Unable to assess Household Members Other:: patient lives at senior care Housing: Other Housing Other:: Longterm Do you presently have visiting nurse or other home services: Yes Unable to assess alcohol history related to: Unable to respond Alcohol intake: never Patient Tobacco Use Status: Never used Tobacco Use of substances other than those prescribed or required for medical reasons: No Advance Directives: Yes Advance Directives Information Provided: Yes Advance Directives on File: No service: No Current occupational status: disabled Physical Exam ED Vital Signs: Vital Signs - 24 hr 12/24/21 06:43 12/24/21 07:32 12/24/21 07:59 Temperature 98 F 98.0 F Pulse Rate 95 84 Respiratory Rate 19 28 H Blood Pressure 96/54 L 92/52 L Pulse Oximetry 94 93 94 Oxygen Delivery Method Nasal Cannula Room Air Room Air 12/24/21 09:47 12/24/21 11:24 Temperature 98.1 F 98 F Pulse Rate 84 82 Respiratory Rate 24 H 18 Blood Pressure 90/54 L 107/60 Pulse Oximetry 97 98 Oxygen Delivery Method Room Air Room Air BMI result Body Mass Index 24.7 Const General: comfortable and no acute distress Nutritional Appearance: average body habitus [facility] Head: Yes normal to inspection General nose exam: Normal external nose present Face and sinus: Yes normal facial exam Mouth: Normal oral and palatal mucosa present Eyes Sclerae: sclerae normal Neck Neck: Yes normal visual inspection Chest Chest palpation & inspection: normal inspection of the chest Resp Effort & Inspection: normal respiratory effort Auscultation: clear to auscultation bilaterally Cardio Rate: regular rate GI Inspection: Yes normal to inspection Palpation (GI): Soft to palpation, not firm, nontender and no guarding Skin General skin exam: no rashes or lesions noted Rashes: no rashes Neuro Other: Patient is nonverbal at baseline he does not follow command a baseline appears staff is able to feed him self Medical Decision Making Lab Data Result diagrams: 12/24/21 07:54 12/24/21 07:54 Labs: Lab Results 12/24/21 12/24/21 12/24/21 Range/Units 07:54 07:54 07:54 WBC 17.7 H (4.8-10.8) X10*3/uL RBC 3.25 L (4.60-5.80) X10*6/uL Hgb 10.1 L (14.0-18.0) g/dl Hct 30.3 L (42.0-52.0) % MCV 93.2 (80.0-98.0) fL MCH 31.1 (27.0-33.0) pg MCHC 33.3 (31.0-36.0) g/dl RDW 15.0 (11.0-16.0) % Plt Count 149 L D (160-400) X10*3/uL MPV 9.9 (9.4-12.4) fL Immature Gran % (Auto) 0.4 (0.0-0.4) % Neut % (Auto) 91.3 H (45-73) % Lymph % (Auto) 2.7 L (20-40) % [place] % (Auto) 5.3 (2-11) % Eos % (Auto) 0.0 (0-4) % Baso % (Auto) 0.3 (0-2) % Lymph # (Auto) 0.5 L (1.2-4.9) X10*3/uL [place] # (Auto) 0.9 (0.1-1.2) X10*3/uL Eos # (Auto) 0.0 (0.0-0.4) X10*3/uL Baso # (Auto) 0.1 (0.0-0.2) X10*3/uL Abs Immat Gran (auto) 0.07 H (0.00-0.03) X10*3/uL Absolute Neuts (auto) 16.2 H (2.0-8.3) x10*3/uL Absolute Nucleated RBC 0.000 (0.0-0.012) X10*3/uL Nucleated RBC % (auto) 0.0 (0.0-0.2) /100WBC Smear Tech's Comments VERIFIED PT 12.7 (10.0-13.1) SEC INR 1.1 (0.9-1.1) APTT 30.2 (26.0-36.4) SEC VBG pH (7.32-7.43) VBG pCO2 mmHg VBG pO2 mmHg VBG HCO3 (22-26) mmol/L VBG O2 Saturation % VBG Base Excess mmol/L Sodium 138 (135-145) mmol/L Potassium 4.7 (3.3-5.1) mmol/L Chloride 103 (96-108) mmol/L Carbon Dioxide 24 (22-29) mmol/L Anion Gap 16 (12-20) BUN 27 H D (9-16) mg/dL Creatinine 1.10 (0.5-1.4) mg/dL Estim Creat Clear Calc 53.1 Estimated GFR > 60 Random Glucose 77 (60-115) mg/dL Calcium 8.7 (8.4-10.2) mg/dL Total Bilirubin 0.2 (0.0-1.0) mg/dL AST 37 (5-37) U/L ALT 18 (0-40) U/L Alkaline Phosphatase 71 D (39-117) U/L Troponin I High Sens (<3.5-35.0) ng/L Total Protein 7.9 (6.5-8.0) g/dL Albumin 3.2 L (3.5-5.0) g/dL Procalcitonin ng/mL COVID-19 (SUNNI) (Negative) COVID-19 Clin Com 12/24/21 12/24/21 12/24/21 Range/Units 07:54 07:54 07:54 WBC (4.8-10.8) X10*3/uL RBC (4.60-5.80) X10*6/uL Hgb (14.0-18.0) g/dl Hct (42.0-52.0) % MCV (80.0-98.0) fL MCH (27.0-33.0) pg MCHC (31.0-36.0) g/dl RDW (11.0-16.0) % Plt Count (160-400) X10*3/uL MPV (9.4-12.4) fL Immature Gran % (Auto) (0.0-0.4) % Neut % (Auto) (45-73) % Lymph % (Auto) (20-40) % [place] % (Auto) (2-11) % Eos % (Auto) (0-4) % Baso % (Auto) (0-2) % Lymph # (Auto) (1.2-4.9) X10*3/uL [place] # (Auto) (0.1-1.2) X10*3/uL Eos # (Auto) (0.0-0.4) X10*3/uL Baso # (Auto) (0.0-0.2) X10*3/uL Abs Immat Gran (auto) (0.00-0.03) X10*3/uL Absolute Neuts (auto) (2.0-8.3) x10*3/uL Absolute Nucleated RBC (0.0-0.012) X10*3/uL Nucleated RBC % (auto) (0.0-0.2) /100WBC Smear Tech's Comments PT (10.0-13.1) SEC INR (0.9-1.1) APTT (26.0-36.4) SEC VBG pH (7.32-7.43) VBG pCO2 mmHg VBG pO2 mmHg VBG HCO3 (22-26) mmol/L VBG O2 Saturation % VBG Base Excess mmol/L Sodium (135-145) mmol/L Potassium (3.3-5.1) mmol/L Chloride (96-108) mmol/L Carbon Dioxide (22-29) mmol/L Anion Gap (12-20) BUN (9-16) mg/dL Creatinine (0.5-1.4) mg/dL Estim Creat Clear Calc Estimated GFR Random Glucose (60-115) mg/dL Calcium (8.4-10.2) mg/dL Total Bilirubin (0.0-1.0) mg/dL AST (5-37) U/L ALT (0-40) U/L Alkaline Phosphatase (39-117) U/L Troponin I High Sens 3.9 (<3.5-35.0) ng/L Total Protein (6.5-8.0) g/dL Albumin (3.5-5.0) g/dL Procalcitonin 0.29 ng/mL COVID-19 (SUNNI) Negative (Negative) COVID-19 Clin Com See Note 12/24/21 Range/Units 07:58 WBC (4.8-10.8) X10*3/uL RBC (4.60-5.80) X10*6/uL Hgb (14.0-18.0) g/dl Hct (42.0-52.0) % MCV (80.0-98.0) fL MCH (27.0-33.0) pg MCHC (31.0-36.0) g/dl RDW (11.0-16.0) % Plt Count (160-400) X10*3/uL MPV (9.4-12.4) fL Immature Gran % (Auto) (0.0-0.4) % Neut % (Auto) (45-73) % Lymph % (Auto) (20-40) % [place] % (Auto) (2-11) % Eos % (Auto) (0-4) % Baso % (Auto) (0-2) % Lymph # (Auto) (1.2-4.9) X10*3/uL [place] # (Auto) (0.1-1.2) X10*3/uL Eos # (Auto) (0.0-0.4) X10*3/uL Baso # (Auto) (0.0-0.2) X10*3/uL Abs Immat Gran (auto) (0.00-0.03) X10*3/uL Absolute Neuts (auto) (2.0-8.3) x10*3/uL Absolute Nucleated RBC (0.0-0.012) X10*3/uL Nucleated RBC % (auto) (0.0-0.2) /100WBC Smear Tech's Comments PT (10.0-13.1) SEC INR (0.9-1.1) APTT (26.0-36.4) SEC VBG pH 7.45 H (7.32-7.43) VBG pCO2 47 mmHg VBG pO2 73 mmHg VBG HCO3 33 H (22-26) mmol/L VBG O2 Saturation 94.0 % VBG Base Excess 8.5 mmol/L Sodium (135-145) mmol/L Potassium (3.3-5.1) mmol/L Chloride (96-108) mmol/L Carbon Dioxide (22-29) mmol/L Anion Gap (12-20) BUN (9-16) mg/dL Creatinine (0.5-1.4) mg/dL Estim Creat Clear Calc Estimated GFR Random Glucose (60-115) mg/dL Calcium (8.4-10.2) mg/dL Total Bilirubin (0.0-1.0) mg/dL AST (5-37) U/L ALT (0-40) U/L Alkaline Phosphatase (39-117) U/L Troponin I High Sens (<3.5-35.0) ng/L Total Protein (6.5-8.0) g/dL Albumin (3.5-5.0) g/dL Procalcitonin ng/mL COVID-19 (SUNNI) (Negative) COVID-19 Clin Com Discharge Plan Discharge Clinical Impression: Pneumonia Patient Disposition: Admitted As Inpatient
[2021-12-24] MEDS: 0.9 % Sodium Chloride 1,000 ML 999 ML IVCONT ×2 (07:58→09:35)
[2021-12-24 08:02] LABS: Venous Blood Gas Refer to POC result
[2021-12-24 08:03] LABS: Basophils Percent Auto 0.3 % (0-2); Hemoglobin 10.1 g/dl (14.0-18.0); PLT CLUMP 1; SCAN SMEAR FLAG 1
[2021-12-24 08:05] LABS: Basophils Absolute Auto 0.1 X10*3/uL (0.0-0.2); Hematocrit 30.3 % (42.0-52.0); Imm Gran Abs Auto 0.07 X10*3/uL (0.00-0.03); Imm Gran Pct Auto 0.4 % (0.0-0.4); Lymphocytes Absolute Auto 0.5 X10*3/uL (1.2-4.9); Lymphocytes Percent Auto 2.7 % (20-40); MANUAL DIFF FLAG SCAN; Mean Corpuscular HGB Conc 33.3 g/dl (31.0-36.0); Mean Corpuscular Hemoglobin 31.1 pg (27.0-33.0); Mean Corpuscular Volume 93.2 fL (80.0-98.0); Mean Platelet Volume 9.9 fL (9.4-12.4); Monocytes Absolute Auto 0.9 X10*3/uL (0.1-1.2); Monocytes Percent Auto 5.3 % (2-11); Neutrophils Absolute Auto 16.2 x10*3/uL (2.0-8.3); Neutrophils Percent Auto 91.3 % (45-73); Red Blood Count 3.25 X10*6/uL (4.60-5.80)
[2021-12-24 08:05] LABS: VBG Base Excess 8.5 mmol/L; VBG HCO3 33 mmol/L (22-26); VBG pCO2 47 mmHg; VBG pH 7.45 (7.32-7.43); VBG pO2 73 mmHg
[2021-12-24 08:10] LABS: INTERNATIONAL NORM RATIO 1.1 (0.9-1.1); Prothrombin Time 12.7 SEC (10.0-13.1)
[2021-12-24 08:12] LABS: Partial Thromboplastin Time 30.2 SEC (26.0-36.4)
[2021-12-24 08:13] LABS: Platelet Count 149 X10*3/uL (160-400); White Blood Count 17.7 X10*3/uL (4.8-10.8)
[2021-12-24 08:16] LABS: COVID-19 Test Negative (Negative); IDNOW Serial# 16C4AD1C
[2021-12-24 08:23] LABS: Troponin-I High Sensitivity 3.9 ng/L (<3.5-35.0)
[2021-12-24 08:25] LABS: Alanine Aminotransferase 18 U/L (0-40); Albumin Level 3.2 g/dL (3.5-5.0); Alkaline Phosphatase 71 U/L (39-117); Anion Gap 16 (12-20); Aspartate Amino Transferase 37 U/L (5-37); Bilirubin Total 0.2 mg/dL (0.0-1.0); Blood Urea Nitrogen 27 mg/dL (9-16); Calcium 8.7 mg/dL (8.4-10.2); Carbon Dioxide 24 mmol/L (22-29); Chloride 103 mmol/L (96-108); Creatinine Clr Calc Pharmacy 53.1; Estimated Glomerular Filt Rate > 60; Glucose Random 77 mg/dL (60-115); Potassium 4.7 mmol/L (3.3-5.1); Sodium 138 mmol/L (135-145); Total Protein 7.9 g/dL (6.5-8.0)
[2021-12-24 08:28] LABS: SLIDE REVIEW VERIFIED
--- NOTE | 2021-12-24 11:14 | PC.NURSE ---
pt. presents w/sob and o2sat 91%. crackles audible on bases bilaterally. pt skin feels hot to the touch. rectal tempt 98.1. placed iv on lfoot at the request of animal care worker. pt has pica and animal care worker was concerned that the patient would pull iv from arm and try to eat it.BP in the 90s gave him 2L of fluid.clean him up as he was wet.
[2021-12-24] MEDS: cefTRIAXone sodium 1 GM in 0.9 % Sodium Chloride 50 ML IV (12:25)
[2021-12-24] MEDS: Ampicillin Sodium/Sulbactam Na 3 GM in 0.9 % Sodium Chloride 100 ML IV ×2 (13:11→18:58)
--- NOTE | 2021-12-24 13:15 | PC.NURSE ---
Pt restful, [facility] staff at bedside. Breathing easy/unlabored, with occasional moments of tachypnea which staff states is baseline for pt when he has PNA. Sat 97% on room air. External cath applied. Abx given as charted. Left foot IV patent, placed d/t h/o PICA
--- NOTE | 2021-12-24 13:18 | PM.IMHP ---
History of Present Illness Date of Service: 12/24/21 Chief Complaint: cough, dyspnea History as per pt's caregiver, as he is non-verbal. 66yo non-verbal M resident of custodial with autism, intellectual disability, OCD, bipolar disorder, and seizure disorder. He comes in after developing breathing difficulty and tachypnea this morning. He started arching his back. This is typical of prior episodes of pneumonia in him. Reportedly had a fever. In the ED, not hypoxic but in obvious respiratory distress with RR of 24. WBCs elevated to 17.7 and left-shifted with 91% PMNs. CXR showed bilateral, R>L mixed interstitial/alveolar infiltrates. Covid-19 SUNNI negative; pt has been fully vaccinated and boosted. He was given 1 dose of doxycycline IV. Review of Systems Review of Systems: Yes Unobtainable due to mental status PMFSH Medical History Anemia Autism Bipolar 1 disorder BPH (benign prostatic hyperplasia) Chronic renal disease Developmental non-verbal disorder Dysphagia GERD (gastroesophageal reflux disease) Hiatal hernia Hydrocele Hyperlipemia Hypertension Mentally challenged OCD (obsessive compulsive disorder) Pica Pneumonia Seizures Surgical History H/O exploratory laparotomy History of colectomy Social History Household Members: Other Household Members Other:: custodial Housing: Other Housing Other:: Care Home Do you presently have visiting nurse or other home services: Yes (custodial) Unable to assess alcohol history related to: Unable to respond Alcohol intake: never Patient Tobacco Use Status: Never used Tobacco Use of substances other than those prescribed or required for medical reasons: No Currently Displaying Signs/Symptoms of Drug Intoxication Withdrawal: No Advance Directives: Yes Advance Directives Information Provided: Yes Advance Directives on File: No Advance Directives Date on File: 12/24/21 Recently lost weight without trying: No Nutrition Risks: Difficulty swallowing and On aspiration precautions Poor oral hygiene: No service: No Current occupational status: disabled Meds Allergies Allergy/AdvReac Type Severity Reaction Status Date / Time haloperidol [From HALDOL] AdvReac Unknown UNKNOWN Verified 12/09/19 11:22 metoclopramide [From REGLAN] AdvReac Unknown UNKNOWN Verified 12/09/19 11:22 Active Medications: Current Medications Doxycycline Hyclate 100 mg/ (Sodium Chloride) 250 mls @ 166.67 mls/hr IV ONCE ONE Stop: 12/24/21 13:19 Ampicillin Sodium/Sulbactam (Sodium 3 gm/ Sodium Chloride) 100 mls @ 200 mls/hr IV Q6H RODOLFO Last Admin: 12/24/21 13:11 Dose: 200 mls/hr Home Medications Medication Instructions Recorded Confirmed Last Taken Type aluminum hydrox-magnesium carb 95 10 ml PO QIDWMHS 12/09/19 12/24/21 12/23/21 History mg-358 mg/15 mL oral suspension (Acid Gone Antacid) citalopram 20 mg tablet 60 mg PO DAILY 12/09/19 12/24/21 12/23/21 History docusate sodium 100 mg capsule 200 mg PO BID 12/09/19 12/24/21 12/23/21 History loratadine 10 mg tablet 10 mg PO DAILY 12/09/19 12/24/21 12/23/21 History olanzapine 10 mg tablet 10 mg PO DAILY 12/09/19 12/24/21 12/23/21 History olanzapine 20 mg tablet 20 mg PO BEDTIME 12/09/19 12/24/21 12/23/21 History omeprazole 20 mg capsule,delayed 40 mg PO DAILY@1630 12/09/19 12/24/21 12/23/21 History release polyethylene glycol 3350 17 17 g PO BID 12/09/19 12/24/21 12/23/21 History gram/dose oral powder simethicone 40 mg/0.6 mL oral 40 mg PO TID@0800,1600,2000 12/09/19 12/24/21 12/23/21 History drops,suspension (Gas Relief (simethicone)) valproic acid (as sodium salt) 250 1,000 mg PO BID 12/09/19 12/24/21 12/23/21 History mg/5 mL oral solution acetaminophen 325 mg tablet 650 mg PO Q6H PRN Pain 10/03/20 12/24/21 Unknown History dextromethorphan-guaifenesin 10 10 ml PO Q6H PRN Cough 10/03/20 12/24/21 Unknown History mg-100 mg/5 mL oral liquid bacitracin zinc 500 unit/gram 1 appl topical BID PRN Wound Care 12/24/21 12/24/21 Unknown History topical ointment wheat dextrin 3 gram/3.5 gram oral 1 packet PO BID 12/24/21 12/24/21 12/23/21 History powder (Best Fiber) Physical Exam Vital Signs and Narrative: Vital Signs: Last Vital Signs Temp 98 F 12/24/21 11:24 Pulse 76 12/24/21 13:15 Resp 18 12/24/21 13:15 BP 116/70 12/24/21 13:15 Pulse Ox 97 12/24/21 13:15 O2 Del Method 12/24/21 13:15 Oxygen Flow Rate 2 12/24/21 06:43 BMI result Body Mass Index 24.7 Gen: in moderate resp distress HEENT: sclera anicteric, moist mucus membranes Neck: supple Lungs: coarse inspiratory crackles bilaterally Heart: regular rate and rhythm, no murmurs Abd: soft, non-tender, non-distended Ext: no edema Skin: warm/well-perfused Neuro: alert, non-verbal Psych: impaired insight Results Labs CBC and Chem 7: 12/25/21 05:42 12/25/21 05:42 Labs: Laboratory Results - last 24 hr 12/24/21 12/24/21 12/24/21 07:54 07:54 07:54 MCV 93.2 MCH 31.1 MCHC 33.3 RDW 15.0 Plt Count 149 L D MPV 9.9 Immature Gran % (Auto) 0.4 Neut % (Auto) 91.3 H Lymph % (Auto) 2.7 L [place] % (Auto) 5.3 Eos % (Auto) 0.0 Baso % (Auto) 0.3 Lymph # (Auto) 0.5 L [place] # (Auto) 0.9 Eos # (Auto) 0.0 Baso # (Auto) 0.1 Abs Immat Gran (auto) 0.07 H Absolute Neuts (auto) 16.2 H Absolute Nucleated RBC 0.000 Nucleated RBC % (auto) 0.0 Smear Tech's Comments VERIFIED PT 12.7 INR 1.1 APTT 30.2 VBG pH VBG pCO2 VBG pO2 VBG HCO3 VBG O2 Saturation VBG Base Excess Anion Gap 16 Estim Creat Clear Calc 53.1 Estimated GFR > 60 Random Glucose 77 Calcium 8.7 Total Bilirubin 0.2 AST 37 ALT 18 Alkaline Phosphatase 71 D Troponin I High Sens Total Protein 7.9 Albumin 3.2 L COVID-19 (SUNNI) COVID-19 Clin Com 12/24/21 12/24/21 12/24/21 07:54 07:54 07:58 MCV MCH MCHC RDW Plt Count MPV Immature Gran % (Auto) Neut % (Auto) Lymph % (Auto) [place] % (Auto) Eos % (Auto) Baso % (Auto) Lymph # (Auto) [place] # (Auto) Eos # (Auto) Baso # (Auto) Abs Immat Gran (auto) Absolute Neuts (auto) Absolute Nucleated RBC Nucleated RBC % (auto) Smear Tech's Comments PT INR APTT VBG pH 7.45 H VBG pCO2 47 VBG pO2 73 VBG HCO3 33 H VBG O2 Saturation 94.0 VBG Base Excess 8.5 Anion Gap Estim Creat Clear Calc Estimated GFR Random Glucose Calcium Total Bilirubin AST ALT Alkaline Phosphatase Troponin I High Sens 3.9 Total Protein Albumin COVID-19 (SUNNI) Negative COVID-19 Clin Com See Note Imaging Radiologist's Impressions: Impressions Chest X-Ray 12/24/21 07:07 FINDINGS/IMPRESSION: The study is limited by portable technique, low lung volumes, and rotation. Allowing for differences in technique and inspiration, bilateral interstitial and alveolar infiltrates remain, right worse than left, with relative sparing of the left upper lung field. These findings appear mildly worse compared with 10/14/2021, allowing for differences in technique. No effusion or pneumothorax is seen. The cardiac silhouette and mediastinum appear unremarkable. There are mild degenerative changes of the spine. Assessment and Plan (1) Pneumonia: Status: Acute Plan 66yo non-verbal M resident of custodial with autism, intellectual disability, OCD, bipolar disorder, and seizure disorder presenting with 1 day of dyspnea/tachypnea and fever, found to have pneumonia. History of chronic aspiration but PEG tube declined in favor of allowing him to eat for quality of life with full recognition of risks of aspiration pneumonia. # pneumonia, likely aspiration - admit to M/S, give ampicillin/sulbactam, trend PCT, follow BCx, check MRSA swab + Legionella/pneumococcal antigens + respiratory pathogen PCR panel. ultimately, likely due to aspiration and as such will place LOCAL TELEPHONE OPERATOR consult and for diet, remain on pureed solids but thicken liquids to nectar consistency. # seizure disorder - continue valproate # mood disorder - continue citalopram, olanzapine # GERD - continue PPI # prostatism - continue finasteride, doxazosin # VTE prophylaxis: LMWH # code status: full I anticipate that the patient will stay at least 2 midnights as an inpatient in the hospital due to the above reasons. It is neither reasonable nor safe to care for them in a less acute setting. Quality Stroke Does the patient have a stroke diagnosis?: No VTE Prior VTE?: No VTE Risk Level:: Medical - moderate - high VTE Device Contraindication: N/A - Device Ordered VTE Drug Contraindication: N/A - Med Ordered
[2021-12-24] MEDS: Doxycycline Hyclate 100 MG in 0.9 % Sodium Chloride 250 ML 166.67 MG IV (13:41)
[2021-12-24] MEDS: Enoxaparin Sodium 40 MG/0.4 ML SYRINGE SUBCUT (13:43)
[2021-12-24 13:44] LABS: Procalcitonin 0.29 ng/mL
[2021-12-24 14:14] LABS: Appearance Urine Clear; Color Urine Yellow; Glucose Urine UA Negative (Negative); Leukocyte Esterase Urine Negative (Negative); Nitrite Urine Negative (Negative); PH 8.5 (5.0-9.0); Specific Gravity - Urine <= 1.005 (1.005-1.025); Urine Blood Negative (Negative); Urine Ketones Negative (Negative); Urine Protein Negative (Neg-Trace)
[2021-12-24 14:19] LABS: Bacteria Urine None Seen (None Seen); Hyaline Casts Urine 0-2 /LPF (0-2); RBC Urine 0-2 /HPF (0-2); Squamous Epithelial Cell Urine 0-2 /HPF (0-2); WBC Urine 0-5 /HPF (0-5)
--- NOTE | 2021-12-24 14:33 | PHA.MEDREC ---
Pharmacy Consult ? Medication Reconciliation Pharmacy has completed the medication reconciliation. Patient had med list.
[2021-12-24] MEDS: Omeprazole 40 MG CAPSULE.DR PO (15:37)
--- NOTE | 2021-12-24 15:58 | MHC.CM.PN ---
CM CALLED PTS SISTER/GUARDIAN, KHURRAM [phone] WHO CONFIRMS PT RESIDES IN A [facility] PT HAS DEVELOPMENTAL DELAYS AND IS NON-VERBAL AT BASELINE PT REQUIRES A GAIT BELT AND TWO ASSIST TO AMBULATE GUARDIANSHIP ON FILE PCP: ELMA MATSON IMM DELIVERED, COPY WILL BE SENT VIA CERTIFIED MAIL DCP RETURN TO [facility] VIA STAFF CONTACT: LION VALENZUELA [phone]
[2021-12-24] MEDS: 0.9 % Sodium Chloride Flush 3 ML SYRINGE IVFLUSH (18:59)
[2021-12-24] MEDS: Magnesium Hydrox/Alum Hydrox 30 ML ORAL.SUSP 10 ML PO (18:59)
[2021-12-24] MEDS: OLANZapine 10 MG TABLET 20 MG PO (22:02)
[2021-12-24] MEDS: polyethylene glycoL 3350 17 GM POWD.PACK PO (22:03)
[2021-12-25] VITALS: BP 98/52; PULSE 66; RESP 16; TEMP 36.4; O2SAT 92
[2021-12-25] MEDS: 0.9 % Sodium Chloride Flush 3 ML SYRINGE IVFLUSH ×4 (00:02→19:48)
[2021-12-25] MEDS: Ampicillin Sodium/Sulbactam Na 3 GM in 0.9 % Sodium Chloride 100 ML IV ×4 (00:02→19:46)
[2021-12-25 06:36] LABS: Hematocrit 30.7 % (42.0-52.0); Hemoglobin 9.9 g/dl (14.0-18.0); Mean Corpuscular HGB Conc 32.2 g/dl (31.0-36.0); Mean Corpuscular Hemoglobin 30.6 pg (27.0-33.0); Mean Corpuscular Volume 94.8 fL (80.0-98.0); Mean Platelet Volume 10.2 fL (9.4-12.4); Platelet Count 139 X10*3/uL (160-400); Red Blood Count 3.24 X10*6/uL (4.60-5.80); Red Cell Distribution Width 15.5 % (11.0-16.0); White Blood Count 15.4 X10*3/uL (4.8-10.8)
[2021-12-25 06:39] LABS: Anion Gap 14 (12-20); Blood Urea Nitrogen 17 mg/dL (9-16); Carbon Dioxide 25 mmol/L (22-29); Chloride 107 mmol/L (96-108); Creatinine Clr Calc Pharmacy 52.6; Estimated Glomerular Filt Rate > 60; Glucose Random 71 mg/dL (60-115); Potassium 4.1 mmol/L (3.3-5.1); Sodium 142 mmol/L (135-145)
[2021-12-25 07:41] VITALS: BP 132/67; PULSE 64; RESP 18; TEMP 35.4; O2SAT 96
[2021-12-25] MEDS: polyethylene glycoL 3350 17 GM POWD.PACK PO ×2 (08:37→21:58)
[2021-12-25] MEDS: Finasteride 5 MG TABLET PO (08:41)
[2021-12-25] MEDS: OLANZapine 10 MG TABLET PO (08:41)
[2021-12-25] MEDS: Doxazosin Mesylate 2 MG TABLET 8 MG PO (08:41)
[2021-12-25] MEDS: Loratadine 10 MG TABLET PO (08:41)
[2021-12-25] MEDS: Escitalopram Oxalate 20 MG TABLET 30 MG PO (08:41)
[2021-12-25] MEDS: Magnesium Hydrox/Alum Hydrox 30 ML ORAL.SUSP 10 ML PO ×4 (08:42→21:57)
--- NOTE | 2021-12-25 09:16 | P.CDIC_ITS ---
CDI Concurrent Query Documentation Clarification: PHYSICIAN'S DOCUMENTATION REQUEST Date of Query: 12/25/21916 Patient Name: Mingo Henriquez Admit Date: 12/24/21 Dear Doctor, A review of the medical record indicates additional documentation may be needed. Please review below and update the documentation accordingly. Clinical Indicators: Risk Factors/Clinical Indicators/Treatments WBC 17.7 heart rate 95 admit with likely Aspiration Pneumonia blood culture pending treated with IV Ampicillin Q6H Please clarify which, if any, of the following is the most likely etiology of the above symptoms and treatment rendered: * Sepsis, present on admission * Systemic manifestations of infection, with 2 or more SIRS criteria which include: - Fever > 100.4F or hypothermia < 96.8 F - Leukocytosis - WBC > 12,000 or leukopenia, WBC < 4,000 or > 10% bands - Tachycardia > 90 beats/minute - Tachypnea - RR > 20 breaths/minute or PaCO2 < 32mmHg (Source: Merck Manual 2013) * Indicate the known or suspected organism * Indicate the known or suspected underlying infection, such as UTI, pneumonia, or cellulitis * Indicate if a suspected bacterial infection of unknown source * Indicate if associated with an implanted device such as a F/C, PICC line, orthopedic hardware, etc. * Other (please specify) * Unable to determine Use of terms such as suspected, likely, concern for, or probable (associated with a specific diagnosis that is being evaluated, monitored, or treated as if it exists) are acceptable and can be coded in the inpatient setting, when documented at the time of discharge. Thank you, Brianne Greenberg RN Extension: [phone] Please use your independent medical judgment in providing your response. THIS QUERY IS PART OF THE PERMANENT MEDICAL RECORD Provider Response: Other Other Diagnosis: send to ER physician and Haylie Larson for clarification
--- NOTE | 2021-12-25 09:20 | P.CDIC_ITS ---
CDI Concurrent Query Documentation Clarification: PHYSICIAN'S DOCUMENTATION REQUEST Date of Query: 12/25/21920 Patient Name: Mingo Henriquez Admit Date: 12/24/21 Dear Doctor, A review of the medical record indicates additional documentation may be needed. Please review below and update the documentation accordingly. Clinical Indicators: A diagnosis of seizure(s) was documented on [insert date]. Risk Factors/Clinical Indicators/Treatments PMH Seizure Disorder per H&P 12/24/21 On Depakene BID If possible, please further clarify in the Progress Notes, the type/etiology, acuity and control status of seizure(s): Specify type/etiology: * Idiopathic * Febrile (specify simple or complex) * Due to stroke * Post-traumatic * Due to external cause (specify if drug, alcohol, stress, etc.) * Absence * Generalized epilepsy (grand mal, myoclonic, atonic, clonic, tonic-clonic, etc.) * Focal or partial (specify simple or complex) * Petit mal * Recurrent - further specify type/etiology * Other * Unable to determine Specify acuity: * With status epilepticus * Without status epilepticus * Other * Unable to determine Specify control status: * Well controlled * Intractable * Pharmacoresistant * Poorly controlled * Refractory * Treatment resistant * Other * Unable to determine Use of terms such as suspected, likely, concern for, or probable (associated with a specific diagnosis that is being evaluated, monitored, or treated as if it exists) are acceptable and can be coded in the inpatient setting, when documented at the time of discharge. Thank you, Brianne Greenberg RN Extension: [phone] Please use your independent medical judgment in providing your response. THIS QUERY IS PART OF THE PERMANENT MEDICAL RECORD Provider Response: Other Other Diagnosis: unspecified unable to determine
--- NOTE | 2021-12-25 09:20 | MHC.CDI.CONC ---
CDI Concurrent Query Documentation Clarification: PHYSICIAN'S DOCUMENTATION REQUEST Date of Query: 12/25/21920 Patient Name: Mingo Henriquez Admit Date: 12/24/21 Dear Doctor, A review of the medical record indicates additional documentation may be needed. Please review below and update the documentation accordingly. Clinical Indicators: A diagnosis of seizure(s) was documented on [insert date]. Risk Factors/Clinical Indicators/Treatments PMH Seizure Disorder per H&P 12/24/21 On Depakene BID If possible, please further clarify in the Progress Notes, the type/etiology, acuity and control status of seizure(s): Specify type/etiology: Idiopathic Febrile (specify simple or complex) Due to stroke Post-traumatic Due to external cause (specify if drug, alcohol, stress, etc.) Absence Generalized epilepsy (grand mal, myoclonic, atonic, clonic, tonic-clonic, etc.) Focal or partial (specify simple or complex) Petit mal Recurrent - further specify type/etiology Other Unable to determine Specify acuity: With status epilepticus Without status epilepticus Other Unable to determine Specify control status: Well controlled Intractable Pharmacoresistant Poorly controlled Refractory Treatment resistant Other Unable to determine Use of terms such as suspected, likely, concern for, or probable (associated with a specific diagnosis that is being evaluated, monitored, or treated as if it exists) are acceptable and can be coded in the inpatient setting, when documented at the time of discharge. Thank you, Brianne Greenberg RN Extension: [phone] Please use your independent medical judgment in providing your response. THIS QUERY IS PART OF THE PERMANENT MEDICAL RECORD Provider Response: Other Other Diagnosis: unspecified unable to determine
--- NOTE | 2021-12-25 10:18 | P.PNIM_ITS ---
Subjective Subjective Date of Service: 12/25/21 Interval History: per caregiver, alert and at his baseline tolerating purees + nectar thick liquids no fever not hypoxic Review of Systems Review of Systems: Yes Unobtainable due to mental status Physical Exam Vital Signs: Vital Signs: Last Vital Signs Temp 95.7 F L 12/25/21 07:41 Pulse 64 12/25/21 07:41 Resp 18 12/25/21 07:41 BP 132/67 12/25/21 07:41 Pulse Ox 96 12/25/21 07:41 O2 Del Method 12/25/21 07:41 FiO2 92 12/24/21 20:00 Oxygen Flow Rate 2 12/24/21 06:43 BMI result Body Mass Index 24.7 Gen: in no resp distress HEENT: sclera anicteric, moist mucus membranes Neck: supple Lungs: coarse inspiratory crackles bilaterally Heart: regular rate and rhythm, no murmurs Abd: soft, non-tender, non-distended Ext: no edema Skin: warm/well-perfused Neuro: alert, non-verbal Psych: impaired insight Objective Data Active Medications Acetaminophen (Acetaminophen 325 Mg Tablet) 650 mg PO Q6H PRN PRN Reason: Pain, Mild (Pain Scale 1-3) Al Hydroxide/Mg Hydroxide (Magnesium Hydrox/Alum Hydrox 30 Ml Oral.Susp) 10 ml PO QIDWMHS [facility] Last Admin: 12/25/21 08:42 Dose: 10 ml Documented By: BELEM Doxazosin Mesylate (Doxazosin Mesylate 2 Mg Tablet) 8 mg PO DAILY [facility]; Protocol Last Admin: 12/25/21 08:41 Dose: 8 mg Documented By: BELEM Enoxaparin Sodium (Enoxaparin Sodium 40 Mg/0.4 Ml Syringe) 40 mg SUBCUT Q24H [facility] Last Admin: 12/24/21 13:43 Dose: 40 mg Documented By: ROYAL Escitalopram Oxalate (Escitalopram Oxalate 20 Mg Tablet) 30 mg PO DAILY [facility] Last Admin: 12/25/21 08:41 Dose: 30 mg Documented By: BELEM Finasteride (Finasteride 5 Mg Tablet) 5 mg PO DAILY [facility] Last Admin: 12/25/21 08:41 Dose: 5 mg Documented By: BELEM Guaifenesin/Dextromethorphan (Guaifenesin Dm 200/20/10 Ml 10 Ml Syrup) 10 ml PO Q6H PRN PRN Reason: Cough Ampicillin Sodium/Sulbactam (Sodium 3 gm/ Sodium Chloride) 100 mls @ 200 mls/hr IV Q6H [facility] Last Infusion: 12/25/21 06:37 Dose: 0 mls/hr Documented By: KATHERIN Loratadine (Loratadine 10 Mg Tablet) 10 mg PO DAILY [facility] Last Admin: 12/25/21 08:41 Dose: 10 mg Documented By: BELEM Olanzapine (Olanzapine 10 Mg Tablet) 10 mg PO DAILY [facility] Last Admin: 12/25/21 08:41 Dose: 10 mg Documented By: BELEM Olanzapine (Olanzapine 10 Mg Tablet) 20 mg PO BEDTIME [facility] Last Admin: 12/24/21 22:02 Dose: 20 mg Documented By: IRIS Omeprazole (Omeprazole 40 Mg Capsule.Dr) 40 mg PO DAILY@1630 [facility] Last Admin: 12/24/21 15:37 Dose: 40 mg Documented By: JORGE Ondansetron HCl (Ondansetron Hcl 4 Mg/2 Ml Vial) 4 mg IVPUSH Q8H PRN PRN Reason: Nausea and Vomiting Polyethylene Glycol (Polyethylene Glycol 3350 17 Gm Powd.Pack) 17 gm PO BID [facility] Last Admin: 12/25/21 08:37 Dose: 17 gm Documented By: BELEM Simethicone (Simethicone 40 Mg/0.6 Ml 30 Ml Drops.Susp) 40 mg PO TID@0800,1600,2000 [facility] Last Admin: 12/25/21 08:48 Dose: 40 mg Documented By: BELEM Sodium Chloride (0.9 % Sodium Chloride Flush 3 Ml Syringe) 3 ml IVFLUSH QSHIFT [facility] Last Admin: 12/25/21 08:37 Dose: 3 ml Documented By: BELEM Valproic Acid (Valproic Acid (As Sodium Salt) 250 Mg/5 Ml Solution) 1,000 mg PO BID [facility] Last Admin: 12/25/21 08:43 Dose: 1,000 mg Documented By: BELEM Labs CBC & Chem 7: 12/25/21 05:42 12/25/21 05:42 Labs: Laboratory Results - last 24 hr 12/24/21 12/24/21 12/25/21 07:54 14:03 00:03 MCV MCH MCHC RDW Plt Count MPV Absolute Nucleated RBC Nucleated RBC % (auto) Anion Gap Estim Creat Clear Calc Estimated GFR Random Glucose Calcium Procalcitonin 0.29 Urine Color Yellow Urine Appearance Clear Urine pH 8.5 Ur Specific [place] <= 1.005 Urine Protein Negative Urine Glucose (UA) Negative Urine Ketones Negative Urine Blood Negative Urine Nitrite Negative Ur Leukocyte Esterase Negative Urine RBC 0-2 Urine WBC 0-5 Ur Squamous Epith Cells 0-2 Urine Bacteria None Seen Hyaline Casts 0-2 Respiratory Panel [place] Cancelled Adenovirus (Rapid PCR) Cancelled B.pert (TEM-PCR) Cancelled B.parapertussis DNA PCR Cancelled C. pneumoniae DNA (PCR) Cancelled Coronavirus OC43 (PCR) Cancelled Coronavirus HKU1 (PCR) Cancelled Coronavirus 229E (PCR) Cancelled Coronavirus NL63 (PCR) Cancelled Human Metapneumovir PCR Cancelled Influenza A (RT-PCR) Cancelled Influenza B (RT-PCR) Cancelled M. pneumoniae (PCR) Cancelled Parainfluenza 1 (PCR) Cancelled Parainfluenza 2 (PCR) Cancelled Parainfluenza 3 (PCR) Cancelled Parainfluenza 4 (PCR) Cancelled RSV (PCR) Cancelled Entero/Rhino (PCR) Cancelled SARS-CoV-2 RNA (RT-PCR) Cancelled 12/25/21 12/25/21 05:42 05:42 MCV 94.8 MCH 30.6 MCHC 32.2 RDW 15.5 Plt Count 139 L MPV 10.2 Absolute Nucleated RBC 0.000 Nucleated RBC % (auto) 0.0 Anion Gap 14 Estim Creat Clear Calc 52.6 Estimated GFR > 60 Random Glucose 71 Calcium 9.0 Procalcitonin Urine Color Urine Appearance Urine pH Ur Specific [place] Urine Protein Urine Glucose (UA) Urine Ketones Urine Blood Urine Nitrite Ur Leukocyte Esterase Urine RBC Urine WBC Ur Squamous Epith Cells Urine Bacteria Hyaline Casts Respiratory Panel [place] Adenovirus (Rapid PCR) B.pert (TEM-PCR) B.parapertussis DNA PCR C. pneumoniae DNA (PCR) Coronavirus OC43 (PCR) Coronavirus HKU1 (PCR) Coronavirus 229E (PCR) Coronavirus NL63 (PCR) Human Metapneumovir PCR Influenza A (RT-PCR) Influenza B (RT-PCR) M. pneumoniae (PCR) Parainfluenza 1 (PCR) Parainfluenza 2 (PCR) Parainfluenza 3 (PCR) Parainfluenza 4 (PCR) RSV (PCR) Entero/Rhino (PCR) SARS-CoV-2 RNA (RT-PCR) Assessment and Plan (1) Pneumonia: Status: Acute Plan d#2 66yo non-verbal M resident of long term with autism, intellectual disability, OCD, bipolar disorder, and seizure disorder presenting with 1 day of dyspnea/tachypnea and fever, found to have pneumonia.? History of chronic aspiration but PEG tube declined by family in favor of allowing him to eat for quality of life with full recognition of risks of aspiration pneumonia. # pneumonia, likely aspiration - d#2 IV ampicillin/sulbactam. trend PCT, follow BCx, check MRSA swab + L egionella/pneumococcal antigens + respiratory pathogen PCR panel.? ultimately, likely due to recurrent aspiration. DIET KITCHEN COOK evaluation. currently on NDD1 solids + nectar thick liquids [at , was on NDD1 solids + thin liquids]. WBCs improved. # unspecified seizure disorder - continue valproate # mood disorder - continue citalopram, olanzapine # GERD - continue PPI # prostatism - continue finasteride, doxazosin # VTE prophylaxis: LMWH Quality Stroke Does the patient have a stroke diagnosis?: No VTE Prior VTE?: No VTE Risk Level:: Medical - moderate - high VTE Device Contraindication: N/A - Device Ordered VTE Drug Contraindication: N/A - Med Ordered
[2021-12-25 10:40] LABS: MRSA Nasal PCR NEGATIVE (Negative); SA Nasal PCR NEGATIVE (Negative)
[2021-12-25 11:40] LABS: Adenovirus PCR Not Detected (Not Detect.); Bordetella parapertussis PCR Not Detected (Not Detect.); Bordetella pertussis PCR Not Detected (Not Detect.); Chlamydia pneumoniae PCR Not Detected (Not Detect.); Coronavirus 229E PCR Not Detected (Not Detect.); Coronavirus HKU1 PCR Not Detected (Not Detect.); Coronavirus NL63 PCR Not Detected (Not Detect.); Coronavirus OC43 PCR Not Detected (Not Detect.); Human metapneumovirus PCR Not Detected (Not Detect.); Influenza A PCR Not Detected (Not Detect.); Influenza B PCR Not Detected (Not Detect.); Mycoplasma pneumoniae PCR Not Detected (Not Detect.); Parainfluenza 1 PCR Not Detected (Not Detect.); Parainfluenza 2 PCR Not Detected (Not Detect.); Parainfluenza 3 PCR Not Detected (Not Detect.); Parainfluenza 4 PCR Not Detected (Not Detect.); RSV PCR Not Detected (Not Detect.); Rhino/Enterovirus PCR Not Detected (Not Detect.); SARS-CoV-2 PCR Not Detected (Not Detect.)
[2021-12-25] MEDS: Enoxaparin Sodium 40 MG/0.4 ML SYRINGE SUBCUT (14:24)
[2021-12-25 15:45] VITALS: BP 120/59; PULSE 78; RESP 18; TEMP 36.3; O2SAT 94
[2021-12-25] MEDS: Omeprazole 40 MG CAPSULE.DR PO (16:32)
--- NOTE | 2021-12-25 17:47 | MHC.SL.SWA ---
Speech Pathologist Impression: Oropharyngeal dysphagia Risk of Aspiration Due to: Neurological Condition History of Pneumonia Reduced Cognition Dysphasia Diet Status: No Change Liquid Consistency and Strategies for Safe Swallow: Liquid Intake Recommendation: [place] WATER PROTOCOL Liquid Intake Strategies: Small Sips No Straws Liquids by Teaspoon Only Solid Food Consistency: Dietary Recommendations: Pureed (NDD1) Additional Modifications to Solid Foods: Pt was seen by PUG MILL OPERATOR during previous hospitalizations 12/10/19-12/11/19 and 10/04/20-10/06/20. Pt reportedly had an MBSS at a different facility July 2019 which showed silent aspiration. Pt's family opted for him to take PO by mouth for quality of life. At the long-term, pt was on pureed diet (NDD1) by 1/2 teaspoon and thin liquids by 1/2 teaspoon w/ the following feeding strategies: oral cavity check, alternating solids with sips of liquids, presenting dry spoon to elicit dry swallow between bites and between sips. Pt has known history of chronic silent aspiration and recurrent pneumonia. Pt seen by PUG MILL OPERATOR at bedside this afternoon, accompanied by a long-term staff member. Staff member from long-term reported there have been no changes since 2020 hospitalization. Per reports of long-term staff and MD, pt's family has declined alternative means for nutrition in favor of pt eating by mouth for quality of life. As such, pt continues on BASELINE pureed solids (NDD1) by HALF TEASPOON and THIN liquids by HALF TEASPOON with strict aspiration precautions. Recommend [place] Free Water Protocol with strict daily oral care routine (before first meal and after each subsequent meal). Oral Medication Intake: Crushed with Puree Please contact the pharmacy regarding appropriate crushable or liquid drug formulations that are available whenever modified delivery is recommended. Compensatory Strategies and Precautions to be Taken for Safe Swallow: Sitting Upright (90 deg) Double Swallow Liquids from Spoon Small Bites and Sips Rate of Ingestion Change Oral Check Supervision While Eating and Drinking for Safe Swallow: Total Assistance (1:1) Foods to Avoid: Patient would benefit from repeat MBSS given history of dysphagia and recurrent aspiration pneumonia. Swallowing Recommended Treatments: Compens. Strategy Educat. Recommendation for Speech: Inpatient Speech Therapy Comment: Should there be any changes with indication for PUG MILL OPERATOR evaluation, recommend it be done with MBSS (inpatient versus outpatient), as we are unable to rule in/out silent aspiration with bedside trials. Powdered Sugar Supervisor Clinican/Clinical Fellow: No Supervisory Statement: I have reviewed and agree with the student/clinical fellow's documentation: N/A Speech Language Pathologist: Luisa Ya M.A., CCC-PUG MILL OPERATOR
[2021-12-25 19:35] VITALS: BP 117/64; PULSE 80; RESP 24; TEMP 36.3
[2021-12-25] MEDS: OLANZapine 10 MG TABLET 20 MG PO (21:57)
[2021-12-25 23:58] VITALS: BP 120/66; PULSE 75; RESP 14; TEMP 36.2; O2SAT 91
[2021-12-26] MEDS: Ampicillin Sodium/Sulbactam Na 3 GM in 0.9 % Sodium Chloride 100 ML IV ×4 (02:03→18:40)
[2021-12-26] MEDS: QUEtiapine Fumarate 25 MG TABLET PO (03:45)
[2021-12-26 05:16] VITALS: BP 120/67; PULSE 64; RESP 14; TEMP 36; O2SAT 93
[2021-12-26 06:15] LABS: MANUAL DIFF FLAG NO
[2021-12-26 06:23] LABS: Basophils Percent Auto 0.3 % (0-2); Eosinophils Absolute Auto 0.1 X10*3/uL (0.0-0.4); Eosinophils Percent Auto 1.1 % (0-4); Hematocrit 34.4 % (42.0-52.0); Hemoglobin 11.1 g/dl (14.0-18.0); Imm Gran Abs Auto 0.04 X10*3/uL (0.00-0.03); Imm Gran Pct Auto 0.4 % (0.0-0.4); Lymphocytes Absolute Auto 2.2 X10*3/uL (1.2-4.9); Lymphocytes Percent Auto 21.8 % (20-40); Mean Corpuscular HGB Conc 32.3 g/dl (31.0-36.0); Mean Corpuscular Hemoglobin 30.5 pg (27.0-33.0); Mean Corpuscular Volume 94.5 fL (80.0-98.0); Monocytes Absolute Auto 0.5 X10*3/uL (0.1-1.2); Monocytes Percent Auto 4.6 % (2-11); Neutrophils Absolute Auto 7.1 x10*3/uL (2.0-8.3); Neutrophils Percent Auto 71.8 % (45-73); Platelet Count 144 X10*3/uL (160-400); Red Blood Count 3.64 X10*6/uL (4.60-5.80); Red Cell Distribution Width 15.2 % (11.0-16.0); White Blood Count 9.9 X10*3/uL (4.8-10.8)
[2021-12-26 06:35] LABS: Anion Gap 16 (12-20); Blood Urea Nitrogen 17 mg/dL (9-16); Calcium 9.4 mg/dL (8.4-10.2); Carbon Dioxide 26 mmol/L (22-29); Chloride 106 mmol/L (96-108); Creatinine Clr Calc Pharmacy 48.7; Estimated Glomerular Filt Rate > 60; Glucose Random 86 mg/dL (60-115); Potassium 4.3 mmol/L (3.3-5.1); Sodium 144 mmol/L (135-145)
[2021-12-26 07:05] VITALS: BP 129/79; PULSE 71; RESP 20; TEMP 36.6
[2021-12-26 07:30] LABS: Procalcitonin 0.85 ng/mL
[2021-12-26] MEDS: polyethylene glycoL 3350 17 GM POWD.PACK PO (08:12)
[2021-12-26] MEDS: Loratadine 10 MG TABLET PO (08:13)
[2021-12-26] MEDS: OLANZapine 10 MG TABLET PO ×2 (08:13→20:03)
[2021-12-26] MEDS: Doxazosin Mesylate 2 MG TABLET 8 MG PO (08:13)
[2021-12-26] MEDS: Escitalopram Oxalate 20 MG TABLET 30 MG PO (08:13)
[2021-12-26] MEDS: Finasteride 5 MG TABLET PO (08:13)
[2021-12-26] MEDS: 0.9 % Sodium Chloride Flush 3 ML SYRINGE IVFLUSH ×2 (08:14→16:49)
[2021-12-26] MEDS: Magnesium Hydrox/Alum Hydrox 30 ML ORAL.SUSP 10 ML PO ×3 (08:14→16:46)
--- NOTE | 2021-12-26 08:29 | P.PNIM_ITS ---
Subjective Subjective Date of Service: 12/26/21 <Nusrat Mendoza NP - Last Filed: 12/26/21 08:31> 12/27/21 <Valentín Manrique MD - Last Filed: 12/27/21 08:50> Interval History: Follow up aspiration pna <Nusrat Mendoza NP - Last Filed: 12/26/21 08:31> Review of Systems Review of Systems: Yes Unobtainable due to mental status <Nusrat Mendoza NP - Last Filed: 12/26/21 08:31> Physical Exam Vital Signs: Vital Signs: Last Vital Signs Temp 97.9 F 12/26/21 07:05 Pulse 71 12/26/21 07:05 Resp 20 12/26/21 07:05 BP 129/79 12/26/21 07:05 Pulse Ox 93 12/26/21 05:16 O2 Del Method 12/26/21 07:05 FiO2 92 12/24/21 20:00 Oxygen Flow Rate 2 12/24/21 06:43 BMI result Body Mass Index 24.7 <Nusrat Mendoza NP - Last Filed: 12/26/21 08:31> Appearing in no acute distress lung sounds are clear to auscultation heart regular rate rhythm, clear S1, S2 positive bowel sounds, abdomen is soft, nontender neuro patient is alert x3, no focal deficits <Nusrat Mendoza NP - Last Filed: 12/26/21 08:31> Objective Data Active Medications Acetaminophen (Acetaminophen 325 Mg Tablet) 650 mg PO Q6H PRN PRN Reason: Pain, Mild (Pain Scale 1-3) Al Hydroxide/Mg Hydroxide (Magnesium Hydrox/Alum Hydrox 30 Ml Oral.Susp) 10 ml PO QIDWMHS [facility] Last Admin: 12/26/21 08:14 Dose: 10 ml Documented By: BELEM Doxazosin Mesylate (Doxazosin Mesylate 2 Mg Tablet) 8 mg PO DAILY [facility]; Protocol Last Admin: 12/26/21 08:13 Dose: 8 mg Documented By: BELEM Enoxaparin Sodium (Enoxaparin Sodium 40 Mg/0.4 Ml Syringe) 40 mg SUBCUT Q24H [facility] Last Admin: 12/25/21 14:24 Dose: 40 mg Documented By: BELEM Escitalopram Oxalate (Escitalopram Oxalate 20 Mg Tablet) 30 mg PO DAILY [facility] Last Admin: 12/26/21 08:13 Dose: 30 mg Documented By: BELEM Comments: Finasteride (Finasteride 5 Mg Tablet) 5 mg PO DAILY [facility] Last Admin: 12/26/21 08:13 Dose: 5 mg Documented By: BELEM Guaifenesin/Dextromethorphan (Guaifenesin Dm 200/20/10 Ml 10 Ml Syrup) 10 ml PO Q6H PRN PRN Reason: Cough Ampicillin Sodium/Sulbactam (Sodium 3 gm/ Sodium Chloride) 100 mls @ 200 mls/hr IV Q6H [facility] Last Infusion: 12/26/21 07:18 Dose: 0 mls/hr Documented By: VICKY Loratadine (Loratadine 10 Mg Tablet) 10 mg PO DAILY [facility] Last Admin: 12/26/21 08:13 Dose: 10 mg Documented By: BELEM Olanzapine (Olanzapine 10 Mg Tablet) 10 mg PO DAILY [facility] Last Admin: 12/26/21 08:13 Dose: 10 mg Documented By: BELEM Olanzapine (Olanzapine 10 Mg Tablet) 20 mg PO BEDTIME [facility] Last Admin: 12/25/21 21:57 Dose: 20 mg Documented By: VICKY Omeprazole (Omeprazole 40 Mg Capsule.Dr) 40 mg PO DAILY@1630 [facility] Last Admin: 12/25/21 16:32 Dose: 40 mg Documented By: BELEM Ondansetron HCl (Ondansetron Hcl 4 Mg/2 Ml Vial) 4 mg IVPUSH Q8H PRN PRN Reason: Nausea and Vomiting Polyethylene Glycol (Polyethylene Glycol 3350 17 Gm Powd.Pack) 17 gm PO BID [facility] Last Admin: 12/26/21 08:12 Dose: 17 gm Documented By: BELEM Simethicone (Simethicone 40 Mg/0.6 Ml 30 Ml Drops.Susp) 40 mg PO TID@0800,1600,2000 [facility] Last Admin: 12/26/21 08:23 Dose: 40 mg Documented By: BELEM Sodium Chloride (0.9 % Sodium Chloride Flush 3 Ml Syringe) 3 ml IVFLUSH QSHIFT [facility] Last Admin: 12/26/21 08:14 Dose: 3 ml Documented By: BELEM Valproic Acid (Valproic Acid (As Sodium Salt) 250 Mg/5 Ml Solution) 1,000 mg PO BID [facility] Last Admin: 12/26/21 08:14 Dose: 1,000 mg Documented By: BELEM <Nusrat Mendoza NP - Last Filed: 12/26/21 08:31> Labs CBC & Chem 7: : 12/26/21 05:59 12/26/21 05:59 <Nusrat Mendoza NP - Last Filed: 12/26/21 08:31> Labs: Laboratory Results - last 24 hr 12/25/21 12/25/21 12/26/21 00:03 09:45 05:59 MCV 94.5 MCH 30.5 MCHC 32.3 RDW 15.2 Plt Count 144 L MPV 10.0 Immature Gran % (Auto) 0.4 Neut % (Auto) 71.8 Lymph % (Auto) 21.8 [place] % (Auto) 4.6 Eos % (Auto) 1.1 Baso % (Auto) 0.3 Lymph # (Auto) 2.2 [place] # (Auto) 0.5 Eos # (Auto) 0.1 Baso # (Auto) 0.0 Abs Immat Gran (auto) 0.04 H Absolute Neuts (auto) 7.1 Absolute Nucleated RBC 0.000 Nucleated RBC % (auto) 0.0 Anion Gap Estim Creat Clear Calc Estimated GFR Random Glucose Calcium Procalcitonin Nasal Screen MRSA (PCR) NEGATIVE Nasal S. aureus Screen NEGATIVE Nasal MRSA/S.aureus Interp SEE NOTE Respiratory Panel [place] See Note Adenovirus (Rapid PCR) Not Detected B.pert (TEM-PCR) Not Detected B.parapertussis DNA PCR Not Detected C. pneumoniae DNA (PCR) Not Detected Coronavirus OC43 (PCR) Not Detected Coronavirus HKU1 (PCR) Not Detected Coronavirus 229E (PCR) Not Detected Coronavirus NL63 (PCR) Not Detected Human Metapneumovir PCR Not Detected Influenza A (RT-PCR) Not Detected Influenza B (RT-PCR) Not Detected M. pneumoniae (PCR) Not Detected Parainfluenza 1 (PCR) Not Detected Parainfluenza 2 (PCR) Not Detected Parainfluenza 3 (PCR) Not Detected Parainfluenza 4 (PCR) Not Detected RSV (PCR) Not Detected Entero/Rhino (PCR) Not Detected SARS-CoV-2 RNA (RT-PCR) Not Detected 12/26/21 12/26/21 05:59 05:59 MCV MCH MCHC RDW Plt Count MPV Immature Gran % (Auto) Neut % (Auto) Lymph % (Auto) [place] % (Auto) Eos % (Auto) Baso % (Auto) Lymph # (Auto) [place] # (Auto) Eos # (Auto) Baso # (Auto) Abs Immat Gran (auto) Absolute Neuts (auto) Absolute Nucleated RBC Nucleated RBC % (auto) Anion Gap 16 Estim Creat Clear Calc 48.7 Estimated GFR > 60 Random Glucose 86 Calcium 9.4 Procalcitonin 0.85 Nasal Screen MRSA (PCR) Nasal S. aureus Screen Nasal MRSA/S.aureus Interp Respiratory Panel [place] Adenovirus (Rapid PCR) B.pert (TEM-PCR) B.parapertussis DNA PCR C. pneumoniae DNA (PCR) Coronavirus OC43 (PCR) Coronavirus HKU1 (PCR) Coronavirus 229E (PCR) Coronavirus NL63 (PCR) Human Metapneumovir PCR Influenza A (RT-PCR) Influenza B (RT-PCR) M. pneumoniae (PCR) Parainfluenza 1 (PCR) Parainfluenza 2 (PCR) Parainfluenza 3 (PCR) Parainfluenza 4 (PCR) RSV (PCR) Entero/Rhino (PCR) SARS-CoV-2 RNA (RT-PCR) <Nusrat Mendoza NP - Last Filed: 12/26/21 08:31> Microbiology Microbiology Results: Microbiology 12/24/21 12:06 Blood Culture - Preliminary Blood - Subclavian No growth after 24 hours. 12/24/21 12:06 Blood Culture - Preliminary Blood - Subclavian No growth after 24 hours. <Nusrat Mendoza NP - Last Filed: 12/26/21 08:31> Assessment and Plan (1) Pneumonia: Status: Acute <Nusrat Mendoza NP - Last Filed: 12/26/21 08:31> Assessment and Plan: 66yo non-verbal M resident of half-way with autism, intellectual disability, OCD, bipolar disorder, and seizure disorder presenting with 1 day of dyspnea/tachypnea and fever, found to have pneumonia.? History of chronic aspiration but PEG tube declined by family in favor of allowing him to eat for quality of life with full recognition of risks of aspiration pneumonia. Aspiration pna ampicillin/sulbactam. MRSA swab neg RPP negative MOLD SHAKER evaluation. currently on NDD1 solids + nectar thick liquids [at , was on NDD1 solids + thin liquids]. Unspecified seizure disorder continue valproate mood disorder continue citalopram, olanzapine GERD continue PPI prostatism continue finasteride, doxazosin VTE prophylaxis: LMWH Attending Dr. Manrique Full code Patient requires continued hospitalization for tx of aspiration pna requiring IV abx at this time <Nusrat Mendoza NP - Last Filed: 12/26/21 08:31> Quality Stroke Does the patient have a stroke diagnosis?: No <Nusrat Mendoza NP - Last Filed: 12/26/21 08:31> VTE Prior VTE?: No <Nusrat Mendoza NP - Last Filed: 12/26/21 08:31> VTE Risk Level:: Medical - moderate - high <Nusrat Mendoza NP - Last Filed: 12/26/21 08:31> VTE Device Contraindication: N/A - Device Ordered <Nusrat Mendoza NP - Last Filed: 12/26/21 08:31> VTE Drug Contraindication: N/A - Med Ordered <Nusrat Mendoza NP - Last Filed: 12/26/21 08:31>
[2021-12-26] MEDS: Enoxaparin Sodium 40 MG/0.4 ML SYRINGE SUBCUT (14:23)
--- NOTE | 2021-12-26 15:05 | MHC.SL.SWA ---
Speech Pathologist Impression: Risk of Aspiration Due to: Neurological Condition History of Pneumonia Reduced Cognition Dysphasia Diet Status: Puree (NDD1) with [place] Thick Liquids, both by 1/2 tsp amounts (only). Pills crushed in puree. Liquid Consistency and Strategies for Safe Swallow: Liquid Intake Recommendation: [place] Thick Liquid Intake Strategies: Small Sips No Straws Liquids by Teaspoon Only Solid Food Consistency: Dietary Recommendations: Pureed (NDD1) Additional Modifications to Solid Foods: By 1/2 tsp amounts. Check that pt has swallowed before presenting additional food or liquid. Oral Medication Intake: Crushed with Puree Please contact the pharmacy regarding appropriate crushable or liquid drug formulations that are available whenever modified delivery is recommended. Compensatory Strategies and Precautions to be Taken for Safe Swallow: Sitting Upright (90 deg) No Straw Liquids from Spoon Small Bites and Sips Alternate Liquids/Solids Rate of Ingestion Change Oral Check Supervision While Eating and Drinking for Safe Swallow: Total Assistance (1:1) Foods to Avoid: Sticky, congealed purees. Swallowing Recommended Treatments: Gustatory Stimulation Recommendation for Speech: Inpatient Speech Therapy Comment: Pt seen for po trials this p.m. Patient is known to have aspiration on all consistencies, family have chosen to continue PO for quality of life, accept aspiration risk. Pt placed on baseline diet of Puree with nectar thick liquids, all delivered in 1/2 tsp amounts. Patient additionally has PICA, caution needs to be taken with leaving any object that might be attempted to be consumed (e.g. band aids). Pt was given 1/2 tsp amounts of puree consistency. Patient noted to use tongue pumping and pressing bolus to roof of mouth to propel. Noted occasional inhale with food present in mouth. Pt produced swallow with mildly reduced laryngeal elevation. Pt. given multiple presentation of 1/2 tsp amount of liquid, did not evidence clinical signs of aspiration throughout. Frequency/Duration: Date Range for Service Req: Timeline to reassess: Reinforcing Steel Machine Operator Clinican/Clinical Fellow: No Supervisory Statement: I have reviewed and agree with the student/clinical fellow's documentation: N/A Speech Language Pathologist: Armida Witt M.A., CCC-PHYSICIAN [facility]
[2021-12-26 15:37] VITALS: BP 145/80; PULSE 85; RESP 20; TEMP 36.2; O2SAT 89
--- NOTE | 2021-12-26 16:04 | MHC.CM.PN ---
STILL TREATING WITH IV ABX. NO PLAN FOR DC
[2021-12-26 16:32] VITALS: O2SAT 93
[2021-12-26] MEDS: Omeprazole 40 MG CAPSULE.DR PO (16:46)
[2021-12-26 19:39] VITALS: BP 126/73; PULSE 88; RESP 19; TEMP 36; O2SAT 93
[2021-12-27] MEDS: Ampicillin Sodium/Sulbactam Na 3 GM in 0.9 % Sodium Chloride 100 ML IV ×4 (00:40→18:49)
[2021-12-27 07:02] VITALS: BP 118/58; PULSE 72; RESP 18; TEMP 36.2; O2SAT 97
[2021-12-27] MEDS: Doxazosin Mesylate 2 MG TABLET 8 MG PO (10:24)
[2021-12-27] MEDS: OLANZapine 10 MG TABLET PO (10:25)
[2021-12-27] MEDS: polyethylene glycoL 3350 17 GM POWD.PACK PO ×2 (10:25→19:51)
[2021-12-27] MEDS: Finasteride 5 MG TABLET PO (10:25)
[2021-12-27] MEDS: Loratadine 10 MG TABLET PO (10:25)
[2021-12-27] MEDS: Escitalopram Oxalate 20 MG TABLET 30 MG PO (10:26)
[2021-12-27] MEDS: 0.9 % Sodium Chloride Flush 3 ML SYRINGE IVFLUSH ×3 (10:26→19:52)
[2021-12-27] MEDS: Magnesium Hydrox/Alum Hydrox 30 ML ORAL.SUSP 10 ML PO ×3 (10:29→19:51)
[2021-12-27] MEDS: Enoxaparin Sodium 40 MG/0.4 ML SYRINGE SUBCUT (13:29)
--- NOTE | 2021-12-27 14:00 | P.PNIM_ITS ---
Subjective Subjective Date of Service: 12/27/21 Interval History: No acute issues overnight per staff. Patient nonverbal Review of Systems Unable to obtain Physical Exam Vital Signs: Vital Signs: Last Vital Signs Temp 97.2 F 12/27/21 07:02 Pulse 72 12/27/21 07:02 Resp 18 12/27/21 07:02 BP 118/58 L 12/27/21 07:02 Pulse Ox 97 12/27/21 07:02 O2 Del Method 12/27/21 07:02 FiO2 92 12/24/21 20:00 Oxygen Flow Rate 2 12/24/21 06:43 BMI result Body Mass Index 24.7 Const: Other: Awake nonverbal; resting comfortably in bed Resp: Other: Diminished at bases with scant expiratory wheezes Cardio: Other: No S4; positive S1-S2; no S3 murmurs rubs gallops GI: Other: Soft positive bowel sounds Extrem: Other: No edema Objective Data Active Medications Acetaminophen (Acetaminophen 325 Mg Tablet) 650 mg PO Q6H PRN PRN Reason: Pain, Mild (Pain Scale 1-3) Al Hydroxide/Mg Hydroxide (Magnesium Hydrox/Alum Hydrox 30 Ml Oral.Susp) 10 ml PO QIDWMHS [facility] Last Admin: 12/27/21 13:23 Dose: Not Given Documented By: GERONIMO Non-Admin Reason: Previously Administered Doxazosin Mesylate (Doxazosin Mesylate 2 Mg Tablet) 8 mg PO DAILY [facility]; Protocol Last Admin: 12/27/21 10:24 Dose: 8 mg Documented By: GERONIMO Enoxaparin Sodium (Enoxaparin Sodium 40 Mg/0.4 Ml Syringe) 40 mg SUBCUT Q24H [facility] Last Admin: 12/27/21 13:29 Dose: 40 mg Documented By: GERONIMO Escitalopram Oxalate (Escitalopram Oxalate 20 Mg Tablet) 30 mg PO DAILY [facility] Last Admin: 12/27/21 10:26 Dose: 30 mg Documented By: GERONIMO Finasteride (Finasteride 5 Mg Tablet) 5 mg PO DAILY [facility] Last Admin: 12/27/21 10:25 Dose: 5 mg Documented By: GERONIMO Guaifenesin/Dextromethorphan (Guaifenesin Dm 200/20/10 Ml 10 Ml Syrup) 10 ml PO Q6H PRN PRN Reason: Cough Ampicillin Sodium/Sulbactam (Sodium 3 gm/ Sodium Chloride) 100 mls @ 200 mls/hr IV Q6H [facility] Last Admin: 12/27/21 13:27 Dose: 200 mls/hr Documented By: GERONIMO Loratadine (Loratadine 10 Mg Tablet) 10 mg PO DAILY [facility] Last Admin: 12/27/21 10:25 Dose: 10 mg Documented By: GERONIMO Olanzapine (Olanzapine 10 Mg Tablet) 10 mg PO DAILY [facility] Last Admin: 12/27/21 10:25 Dose: 10 mg Documented By: GERONIMO Olanzapine (Olanzapine 10 Mg Tablet) 20 mg PO BEDTIME [facility] Last Admin: 12/26/21 20:06 Dose: Not Given Documented By: SAMIR Non-Admin Reason: Patient Asleep Omeprazole (Omeprazole 40 Mg Capsule.Dr) 40 mg PO DAILY@1630 [facility] Last Admin: 12/26/21 16:46 Dose: 40 mg Documented By: BELEM Ondansetron HCl (Ondansetron Hcl 4 Mg/2 Ml Vial) 4 mg IVPUSH Q8H PRN PRN Reason: Nausea and Vomiting Polyethylene Glycol (Polyethylene Glycol 3350 17 Gm Powd.Pack) 17 gm PO BID [facility] Last Admin: 12/27/21 10:25 Dose: 17 gm Documented By: GERONIMO Simethicone (Simethicone 40 Mg/0.6 Ml 30 Ml Drops.Susp) 40 mg PO TID@0800,1600,2000 [facility] Last Admin: 12/27/21 10:29 Dose: 40 mg Documented By: GERONIMO Sodium Chloride (0.9 % Sodium Chloride Flush 3 Ml Syringe) 3 ml IVFLUSH QSHIFT [facility] Last Admin: 12/27/21 10:26 Dose: 3 ml Documented By: GERONIMO Valproic Acid (Valproic Acid (As Sodium Salt) 250 Mg/5 Ml Solution) 1,000 mg PO BID [facility] Last Admin: 12/27/21 10:25 Dose: 1,000 mg Documented By: GERONIMO Labs CBC & Chem 7: 12/26/21 05:59 12/26/21 05:59 Microbiology Microbiology Results: Microbiology 12/24/21 12:06 Blood Culture - Preliminary Blood - Subclavian No growth after 48 hours. 12/24/21 12:06 Blood Culture - Preliminary Blood - Subclavian No growth after 48 hours. Assessment and Plan (1) Pneumonia: Status: Acute (2) Seizures: Status: Acute (3) GERD (gastroesophageal reflux disease): Status: Acute Plan 66yo non-verbal M resident of care home with autism, intellectual disability, OCD, bipolar disorder, and seizure disorder presenting with 1 day of dyspnea/tachypnea and fever, found to have pneumonia.? History of chronic aspiration but PEG tube declined by family in favor of allowing him to eat for quality of life with full recognition of risks of aspiration pneumonia. 1.Aspiration Pneumonia -ampicillin/sulbactam (3) -if afebrile x 24hrs... DC back to care home on Augmentin -speech eval noted care home to update diet 2. Seizure disorder -stable on current therapies -continue as per care home 3.GERD -continue PPI as ordered Lovenox Full Code Patient requires ongoing hospitalization for IV antibiotics to treat aspiration pneumonia Quality Stroke Does the patient have a stroke diagnosis?: No VTE Prior VTE?: No VTE Risk Level:: Medical - moderate - high VTE Device Contraindication: N/A - Device Ordered VTE Drug Contraindication: N/A - Med Ordered
--- NOTE | 2021-12-27 15:44 | MHC.SL.SWA ---
Speech Pathologist Impression: Risk of Aspiration Due to: Neurological Condition History of Pneumonia Reduced Cognition Dysphasia Diet Status: D/t pt's family has declining alternative means for nutrition in favor of pt eating by mouth for quality of life, recommend pt continues on BASELINE of pureed solids (NDD1) by HALF TEASPOON and THIN liquids by HALF TEASPOON with strict aspiration precautions. SWITCHBOARD RECEPTIONIST team has also recommended Wyatt Free Water Protocol with strict daily oral care routine (before first meal and after each subsequent meal). Pills crushed in puree. Liquid Consistency and Strategies for Safe Swallow: Liquid Intake Recommendation: Thin Liquid Intake Strategies: Small Sips Liquids by Teaspoon Only Solid Food Consistency: Dietary Recommendations: Pureed (NDD1) Additional Modifications to Solid Foods: By 1/2 tsp amounts. Check that pt has swallowed before presenting additional food or liquid. Oral Medication Intake: Crushed with Puree Please contact the pharmacy regarding appropriate crushable or liquid drug formulations that are available whenever modified delivery is recommended. Compensatory Strategies and Precautions to be Taken for Safe Swallow: Sitting Upright (90 deg) No Straw Liquids from Spoon Small Bites and Sips Alternate Liquids/Solids Rate of Ingestion Change Oral Check Supervision While Eating and Drinking for Safe Swallow: Total Assistance (1:1) Foods to Avoid: Sticky, congealed purees. Swallowing Recommended Treatments: Gustatory Stimulation Recommendation for Speech: Inpatient Speech Therapy Comment: Should there be any changes with indication for SWITCHBOARD RECEPTIONIST evaluation, recommend it be done with MBSS (inpatient versus outpatient), as we are unable to rule in/out silent aspiration with bedside trials. Frequency/Duration: Date Range for Service Req: Timeline to reassess: Room Service Food Server Clinican/Clinical Fellow: Yes: Ro Cerda M.A., CF-SWITCHBOARD RECEPTIONIST Supervisory Statement: I have reviewed and agree with the student/clinical fellow's documentation: Yes Speech Language Pathologist: Armida Witt M.A., CCC-SWITCHBOARD RECEPTIONIST
[2021-12-27 15:53] VITALS: BP 102/55; PULSE 79; RESP 18; TEMP 37.1; O2SAT 95
--- NOTE | 2021-12-27 16:15 | MHC.CM.PN ---
CALL TO ANA OF [facility] [phone] ANA IS AWARE OF DC TOMORROW AND REPORTS THAT HOSPITALIST HAS THE NECESSARY PAPERWORK TO BE FILLED OUT. PATIENT IS TO DC ON PO AUGMENTIN SPEECH TREAT DOCUMENTATION LEFT ON ROOM TABLE FOR [facility] STAFF MEMBER PER REQUEST. IMM 12/27 IN CHART
[2021-12-27] MEDS: Omeprazole 40 MG CAPSULE.DR PO (17:07)
[2021-12-27 19:15] VITALS: BP 100/56; PULSE 70; RESP 18; TEMP 37.1; O2SAT 90
[2021-12-27] MEDS: OLANZapine 10 MG TABLET 20 MG PO (19:51)
[2021-12-27 23:51] VITALS: BP 122/64; PULSE 55; RESP 16; TEMP 36; O2SAT 94
[2021-12-28] MEDS: Ampicillin Sodium/Sulbactam Na 3 GM in 0.9 % Sodium Chloride 100 ML IV ×3 (00:38→13:06)
[2021-12-28 07:23] VITALS: BP 120/63; PULSE 73; RESP 18; TEMP 36.7; O2SAT 93
[2021-12-28] MEDS: Finasteride 5 MG TABLET PO (09:08)
[2021-12-28] MEDS: Doxazosin Mesylate 2 MG TABLET 8 MG PO (09:08)
[2021-12-28] MEDS: Escitalopram Oxalate 20 MG TABLET 30 MG PO (09:08)
[2021-12-28] MEDS: Loratadine 10 MG TABLET PO (09:08)
[2021-12-28] MEDS: OLANZapine 10 MG TABLET PO (09:08)
[2021-12-28] MEDS: Magnesium Hydrox/Alum Hydrox 30 ML ORAL.SUSP 10 ML PO ×2 (09:09→13:03)
[2021-12-28] MEDS: 0.9 % Sodium Chloride Flush 3 ML SYRINGE IVFLUSH (09:09)
[2021-12-28] MEDS: polyethylene glycoL 3350 17 GM POWD.PACK PO (09:09)
--- NOTE | 2021-12-28 11:39 | PM.DS ---
DS: Providers Provider Date of Service: 12/28/21 Date of admission: 12/24/21 13:10 Date of discharge: 12/28/21 Primary care physician: Tomy Rangel MD DS: Diagnosis Discharge Diagnosis (1) Pneumonia: Status: Acute (2) Seizures: Status: Acute (3) GERD (gastroesophageal reflux disease): Status: Acute DS: Summary Hospital Course Hospital Course: 66yo non-verbal M resident of longterm with autism, intellectual disability, OCD, bipolar disorder, and seizure disorder.? He comes in after developing breathing difficulty and tachypnea this morning.? He started arching his back.? This is typical of prior episodes of pneumonia in him.? Reportedly had a fever.? In the ED, not hypoxic but in obvious respiratory distress with RR of 24.? WBCs elevated to 17.7 and left-shifted with 91% PMNs.? CXR showed bilateral, R>L mixed interstitial/alveolar infiltrates.? Covid-19 SUNNI negative; pt has been fully vaccinated and boosted.? He was given 1 dose of doxycycline IV. Hospital Course Admitted to the hospital floor given Unasyn q.6 hours. Over the next 4 days patient improved back to baseline per staff. Seen by speech therapy who recommended diet as per longterm with modifications noted in discharge paperwork. At this point in time patient is medically acceptable to return to longterm follow-up with PCP. He will complete a 10 day course of Augmentin. Further plans as per PCP Time Spent with Patient Time attestation: Total time spent providing and/or coordinating discharge services: Discharge coordination time: Greater than 30 minutes Quality: Safe Use of Opioids Does Pt have an Active Cancer Diagnosis on the Problem List?: No Quality: Stroke Does the patient have a stroke diagnosis?: No Physical Exam Vital Signs: Vital Signs: Last Vital Signs Temp 98.0 F 12/28/21 07:23 Pulse 73 12/28/21 07:23 Resp 18 12/28/21 07:23 BP 120/63 12/28/21 07:23 Pulse Ox 93 12/28/21 07:23 O2 Del Method 12/28/21 07:23 FiO2 92 12/24/21 20:00 Oxygen Flow Rate 2 12/24/21 06:43 BMI result Body Mass Index 24.7 Const: Other: Awake nonverbal; resting comfortably in bed Resp: Other: Diminished at bases with scant expiratory wheezes Cardio: Other: No S4; positive S1-S2; no S3 murmurs rubs gallops GI: Other: Soft positive bowel sounds Extrem: Other: No edema DS: Data Data Completed and Pending Labs on day of discharge: Preliminary micro results at discharge 12/24/21 12:06 Blood Culture - Preliminary Blood - Subclavian No growth after 48 hours. 12/24/21 12:06 Blood Culture - Preliminary Blood - Subclavian No growth after 48 hours. Discharge Plan Discharge Anticipated Discharge Date/Time: 12/28/21 11:45 Patient Disposition: Xfer Other Discharge Diagnosis: Aspiration pneumonia Referrals: Tomy Rangel MD [Primary Care Provider] - 1 Week Discharge Medications: New amoxicillin-pot clavulanate 875-125 mg tablet 1 tab PO BID Qty: 20 0RF Continued doxazosin 8 mg tablet 8 mg PO DAILY 90 Days Qty: 90 3RF finasteride 5 mg tablet 5 mg PO DAILY 90 Days Qty: 90 3RF Acid Gone Antacid 95-358 mg/15 mL suspension 10 ml PO QIDWMHS olanzapine 10 mg tablet 10 mg PO DAILY citalopram 20 mg tablet 60 mg PO DAILY valproic acid (as sodium salt) 250 mg/5 mL solution 1,000 mg PO BID docusate sodium 100 mg capsule 200 mg PO BID omeprazole 20 mg capsule,delayed release(DR/EC) 40 mg PO DAILY@1630 simethicone [Gas Relief (simethicone)] 40 mg/0.6 mL drops,suspension 40 mg PO TID@0800,1600,2000 polyethylene glycol 3350 17 gram/dose powder 17 g PO BID Rx Instructions: hold if more than 3 BM's in 1 day olanzapine 20 mg tablet 20 mg PO BEDTIME loratadine 10 mg tablet 10 mg PO DAILY acetaminophen 325 mg tablet 650 mg PO Q6H PRN (Reason: Pain) dextromethorphan-guaifenesin 10-100 mg/5 mL Liquid 10 ml PO Q6H PRN (Reason: Cough) bacitracin zinc 500 unit/gram ointment 1 appl topical BID PRN (Reason: Wound Care) Best Fiber 3 gram/3.5 gram Powder 1 packet PO BID Rx Instructions: mix into at least 4 oz water or juice before administering Discharge Orders: Discharge Order (Routine); Ordered 12/28/21 Ordered By: Bolivar Floyd Diet: see plan of treatment Stand Alone Forms: Patient Portal Discharge page Care Plan Goals: Resume all pre-hospital medications and treatments; add Augmentin 875 p.o. b.i.d. for 10 days Health Concerns: Dietary recommendations and strict aspiration precautions Plan of Treatment: Diet: BASELINE of pureed solids (NDD1) by HALF TEASPOON and THIN liquids by HALF TEASPOON with strict aspiration precautions. HAT FINISHER team has also recommended Wyatt Free Water Protocol with strict daily oral care routine (before first meal and after each subsequent meal). Pills crushed in puree. Assessment: See discharge summary
--- NOTE | 2021-12-28 12:32 | MHC.CM.PN ---
[facility] TO TRANSPORT PATIENT FOR 3 PM TO LONG TERM. STAFF MEMBER (IN ROOM) AND PATIENT AWARE. T/W TO INFORM MD, RN, AND UNIT
[2021-12-28] MEDS: Enoxaparin Sodium 40 MG/0.4 ML SYRINGE SUBCUT (13:03)
[2021-12-28 15:51] VITALS: BP 115/71; PULSE 89; RESP 16; O2SAT 91
--- NOTE | 2021-12-28 17:02 | MHC.SL.SWA ---
Speech Pathologist Impression: Risk of Aspiration Due to: Neurological Condition History of Pneumonia Reduced Cognition Dysphasia Diet Status: D/t pt's family has declining alternative means for nutrition in favor of pt eating by mouth for quality of life, recommend pt continues on BASELINE of pureed solids (NDD1) by HALF TEASPOON and THIN liquids by HALF TEASPOON with strict aspiration precautions. CLIENT TECHNICAL SUPPORT ASSOCIATE team has also recommended Wyatt Free Water Protocol with strict daily oral care routine (before first meal and after each subsequent meal). Pills crushed in puree. Liquid Consistency and Strategies for Safe Swallow: Liquid Intake Recommendation: Thin Liquid Intake Strategies: Small Sips Liquids by Teaspoon Only Solid Food Consistency: Dietary Recommendations: Pureed (NDD1) Additional Modifications to Solid Foods: By 1/2 tsp amounts. Check that pt has swallowed before presenting additional food or liquid. Oral Medication Intake: Crushed with Puree Please contact the pharmacy regarding appropriate crushable or liquid drug formulations that are available whenever modified delivery is recommended. Compensatory Strategies and Precautions to be Taken for Safe Swallow: Sitting Upright (90 deg) No Straw Liquids from Spoon Small Bites and Sips Alternate Liquids/Solids Rate of Ingestion Change Oral Check Supervision While Eating and Drinking for Safe Swallow: Total Assistance (1:1) Foods to Avoid: Sticky, congealed purees. Swallowing Recommended Treatments: Gustatory Stimulation Recommendation for Speech: Inpatient Speech Therapy Comment: Pt seen during lunch, with Aid from custodial present, providing 1-1 feeding. At onset, Aid noted immediately that the consistency of food on the tray was problematic, particularly that lunch had come with chopped green beans that had a hard, undercooked consistency. Aid reported that this had happened before and she had sent tray back. Other items on the tray were puree, and mashed potatoes had gravy/sauce to thin to appropriate consistency. CLIENT TECHNICAL SUPPORT ASSOCIATE observed aid given tsp amounts of food and liquid, with attentive observation of swallow before administering more. Aid also reported her knowledge that Pt is receiving PO at the request of the family with known risk of chronic aspiration. CLIENT TECHNICAL SUPPORT ASSOCIATE contacted Acoustical Tile Patternmaker regarding inappropriate texture of food on tray, medical consequences of providing patients with dysphagia wrong consistencies. Frequency/Duration: Date Range for Service Req: Timeline to reassess: Strategic Partner Development Manager Clinican/Clinical Fellow: No Supervisory Statement: I have reviewed and agree with the student/clinical fellow's documentation: N/A Speech Language Pathologist: Armida Witt M.A., [facility]-CLIENT TECHNICAL SUPPORT ASSOCIATE
[2021-12-30 16:46] LABS: Strep Pneumo Ag urine Not Detected (Not Detected)
[2022-01-07 17:21] LABS: Legionella Ag Urine Not Detected (Not Detected)
== END 2021-12-28 17:00 | disposition home health service (06) | DRG 178 ==
LOC: HO.ED 12:36 → HO.EDOVER 13:21 → HO.S3 14:17
PROVIDERS: Admitting Provider Family Medicine; Emergency Provider Emergency Medicine; PCP Internal Medicine; Visit Provider Hospitalist
DX: J69.0 Pneumonitis due to inhalation of food and vomit (principal); F84.0 Autistic disorder; G40.909 Epilepsy, unspecified, not intractable, without status epilepticus; F31.9 Bipolar disorder, unspecified; E78.5 Hyperlipidemia, unspecified; F42.9 Obsessive-compulsive disorder, unspecified; N40.0 Benign prostatic hyperplasia without lower urinary tract symptoms; K21.9 Gastro-esophageal reflux disease without esophagitis; Z20.822 Contact with and (suspected) exposure to COVID-19; Z88.8 Allergy status to other drugs, medicaments and biological substances; Z79.899 Other long term (current) drug therapy
CPT/HCPCS: 36415; 71045; 80048; 80053; 81001; 82803; 84145; 84484; 85025; 85027; 85610; 85730; 87040; 87449; 87633; 87635; 87640; 87641; 87899; 92526; 92610; 93005; 99285; J0295; J0696; J1650

== ENCOUNTER 2022-01-02 09:18 | Inpatient (IN) | payer MEDICARE, MEDICAID, SELFPAY ==
[2022-01-02] VITALS (8 sets, daily range): BP systolic 92–126; BP diastolic 50–88; PULSE 78–102; RESP 16–22; TEMP 36.5–38.6; O2SAT 92–97; BMI 22.6
--- NOTE | ~2022-01-02 | XR_ITS ---
EXAMINATION: XR ABDOMEN KUB CLINICAL INDICATION: Evaluate for small bowel dilatation prior to planned PEG tube COMPARISON: Previous CT of the abdomen and pelvis most recent November [address] from yesterday and chest x-ray December 2014 TECHNIQUE: AP view of the abdomen. FINDINGS: There is airspace disease at the right lung base suggestive of pneumonia. The stomach, small and large bowel are filled with air and distended. There is no evidence of free air. No calcifications. Bony structures are unremarkable. XR/XR KUB IMPRESSION: Air-filled distended stomach, small and large bowel. Airspace disease at the right lung base suggestive of pneumonia.
--- NOTE | ~2022-01-02 | CT_ITS ---
EXAMINATION: CT CHEST WITHOUT CONTRAST CLINICAL INFORMATION: Hypoxia. Cough. Shortness of breath. COMPARISON: Hypoxia. Cough. Shortness of breath. TECHNIQUE: Multidetector volumetric CT imaging of the chest was done. Axial MIP volume rendering provided. Sagittal and coronal reformatted images were obtained. This CT examination was performed using dose optimization techniques as appropriate, variously including the following: *Automated exposure control *Adjustment of mA and/or kV according to patient size (this includes techniques or standardized protocols for targeted exams where dose is matched to indication/reason for exam; i.e. extremities or head) *Use of iterative reconstruction technique DLP: 304 mGy-cm FINDINGS: LUNGS: Motion limits evaluation of the lungs and airways. Secretions noted in the trachea extending to the right mainstem bronchus. Patchy groundglass opacities of the right upper lobe most prominently. There is a small right-sided pleural effusion with a more dense right lower lobe consolidation. No pneumothorax. MEDIASTINUM: Normal heart size. Coronary artery calcifications are present. No pericardial effusion. No mediastinal lymphadenopathy. The thyroid gland is unremarkable. CORONARY ARTERY CALCIFICATION: Present AXILLA: No lymphadenopathy. UPPER ABDOMEN: No acute abnormality visualized. Gas-filled bowel. OSSEOUS STRUCTURES: No acute or suspicious osseous abnormality. Degenerative change throughout the spine. DISH. CT/CT chest wo IV con IMPRESSION: 1. Motion limits evaluation of the lungs and airways. 2. Patchy groundglass opacities of the right upper lobe are nonspecific. This could be infectious or inflammatory. 3. Small right-sided pleural effusion with dense right lower lobe consolidation. This could also represent atelectasis or pneumonia. Aspiration also a consideration. Fleischner guidelines were followed.
--- NOTE | ~2022-01-02 | XR_ITS ---
EXAMINATION: XR CHEST CLINICAL INFORMATION: Aspiration COMPARISON: Previous chest x-ray most recent 01/12/2022 TECHNIQUE: Frontal view of the chest was obtained. FINDINGS: The cardiac and mediastinal contours are stable. There is increasing airspace disease in the right lung suggestive of worsening pneumonia. The left lung is clear. There is no pleural effusion or pneumothorax. Bony structures are unremarkable. XR/XR chest 1V IMPRESSION: Worsening airspace disease in the right lung suggestive of pneumonia.
--- NOTE | ~2022-01-02 | XR_ITS ---
EXAMINATION: XR CHEST CLINICAL INFORMATION: SOB. COMPARISON: Chest 12/24/2021 TECHNIQUE: Frontal view of the chest was obtained. FINDINGS: The patient is rotated to the right with increased bilateral markings slightly greater on the right side. No consolidation or pleural effusion. Heart size and pulmonary vascularity is normal.. No gross bony abnormality seen. XR/XR chest 1V IMPRESSION: Bilateral increased interstitial markings slightly greater on the right side. No consolidation or pleural effusion seen.
--- NOTE | ~2022-01-02 | XR_ITS ---
EXAMINATION: XR CHEST CLINICAL INFORMATION: Shortness of breath COMPARISON: Chest CT on 01/04/2022 TECHNIQUE: Frontal view of the chest was obtained. FINDINGS: The patient is rotated. The cardiomediastinal silhouette is normal. No areas of consolidation. No pleural effusions. Normal pulmonary vascularity. XR/XR chest 1V IMPRESSION: No acute disease.
--- NOTE | 2022-01-02 09:25 | ED_ITS ---
HPI - General Adult General Chief complaint: Upper Respiratory Symptoms Stated complaint: SOB,CRACKLES IN LUNGS FROM [facility] PER EMS Time Seen by Provider: 01/02/22 09:25 Source: EMS Mode of arrival: EMS Limitations: language barrier (patient is non-verbal ) History of Present Illness HPI narrative: Patient is a 66 year old assigned male at with a history of GERD and being non-verbal presenting to the emergency department today with worsening cough. Staff states that the patient has been coughing much more and has been having a fever on and off at home. Onset (ago): day(s) Severity: moderate Severity scale (1-10): 4 Relieving factors: none Exacerbating factors: none Associated symptoms: cough and fever/chills Treatments prior to arrival: none Related Data Home Medications Medication Instructions Recorded Confirmed aluminum hydrox-magnesium carb 95 10 ml PO QIDWMHS 12/09/19 01/02/22 mg-358 mg/15 mL oral suspension (Acid Gone Antacid) citalopram 20 mg tablet 60 mg PO DAILY 12/09/19 01/02/22 docusate sodium 100 mg capsule 200 mg PO BID@0800,199912/09/19 01/02/22 loratadine 10 mg tablet 10 mg PO DAILY 12/09/19 01/02/22 olanzapine 10 mg tablet 10 mg PO DAILY 12/09/19 01/02/22 olanzapine 20 mg tablet 20 mg PO BEDTIME 12/09/19 01/02/22 omeprazole 20 mg capsule,delayed 40 mg PO DAILY@1600 12/09/19 01/02/22 release polyethylene glycol 3350 17 17 g PO BID 12/09/19 01/02/22 gram/dose oral powder simethicone 40 mg/0.6 mL oral 40 mg PO TID@0800,1600,199912/09/19 01/02/22 drops,suspension (Gas Relief (simethicone)) valproic acid (as sodium salt) 250 1,000 mg PO BID 12/09/19 01/02/22 mg/5 mL oral solution acetaminophen 325 mg tablet 650 mg PO Q6H PRN Pain 10/03/20 01/02/22 dextromethorphan-guaifenesin 10 10 ml PO Q6H PRN Cough 10/03/20 01/02/22 mg-100 mg/5 mL oral liquid bacitracin zinc 500 unit/gram 1 appl topical BID PRN Wound Care 12/24/21 01/02/22 topical ointment wheat dextrin 3 gram/3.5 gram oral 1 packet PO BID 12/24/21 01/02/22 powder (Best Fiber) magnesium hydroxide 400 mg/5 mL 30 ml PO DAILY PRN Constipation 01/02/22 01/02/22 oral suspension (Milk of Magnesia) Previous Rx's Medication Instructions Recorded doxazosin 8 mg tablet 8 mg PO DAILY 90 days #90 tabs 02/02/21 finasteride 5 mg tablet 5 mg PO DAILY 90 days #90 tabs 02/22/21 Allergies Allergy/AdvReac Type Severity Reaction Status Date / Time haloperidol [From HALDOL] AdvReac Unknown UNKNOWN Verified 12/09/19 11:22 metoclopramide [From REGLAN] AdvReac Unknown UNKNOWN Verified 12/09/19 11:22 Review of Systems Review of Systems: Yes Other (patient is non-verbal at baseline) Constitutional: Constitutional: Reports no additional constitutional complaints, Denies chills, Reports fever(s) and Denies night sweats Eyes: Eyes: Reports no additional eye complaints, Denies eye discharge and Denies loss of vision ENT: Denies dizziness and Denies neck mass Cardiovascular: Cardiovascular: Reports no additional cardiovascular complaints, Denies Loss of Consciousness and Denies dyspnea Respiratory: Respiratory: Reports no additional respiratory complaints, Reports cough and Denies dyspnea Gastrointestinal: Gastrointestinal: Reports no additional gastrointestinal complaints, Denies melena, Denies hematochezia, Denies change in bowel habits and Denies change in stool character Genitourinary: Genitourinary: Reports no additional male genitourinary complaints, Denies hematuria, Denies oliguria, Denies difficulty urinating, Denies urinary frequency, Reports urinary hesitancy and Denies urinary incontinence Musculoskeletal: Musculoskeletal: Reports no additional musculoskeletal complaints, Denies numbness, Denies stiffness and Denies tingling Neurologic: Denies dizziness, Denies loss of vision, Denies numbness and Denies tingling Psychiatric: Psychiatric: Reports no additional psychiatric complaints Endocrine: Endocrine: Reports no additional endocrine complaints Hematologic/Lymphatic: Hematologic/Lymphatic: Reports no additional hematolog ic/lymphatic complaints Allergic/Immunologic: Allergic/Immunologic: Reports no additional allergic/immunologic complaints PMFSH Past Medical History Attestation statement: The following information was validated with the patient. (all information validated with the patient's care team coordinator scheduler at bed side) Source: old records reviewed and other (patient's caregiver at bedside) Medical History Anemia Autism Bipolar 1 disorder BPH (benign prostatic hyperplasia) Chronic renal disease Developmental non-verbal disorder Dysphagia GERD (gastroesophageal reflux disease) Hiatal hernia Hydrocele Hyperlipemia Hypertension Mentally challenged OCD (obsessive compulsive disorder) Pica Pneumonia Seizures Surgical History H/O exploratory laparotomy History of colectomy Social History Social History Household Members: Other Household Members Other:: custodial Housing: Other Housing Other:: Senior Care Do you presently have visiting nurse or other home services: Yes (custodial) Unable to assess alcohol history related to: Unable to respond Alcohol intake: never Patient Tobacco Use Status: Never used Tobacco Advance Directives: Yes Advance Directives on File: Yes Advance Directives Date on File: 12/24/21 service: No Current occupational status: disabled Physical Exam ED Vital Signs: Vital Signs - 24 hr 01/02/22 09:33 01/02/22 10:57 01/02/22 10:58 Temperature 98.3 F 101.4 F H Pulse Rate 102 H 97 Respiratory Rate 19 22 H Blood Pressure 116/72 123/78 Pulse Oximetry 97 93 96 Oxygen Delivery Method Room Air Room Air Room Air 01/02/22 12:36 01/02/22 14:19 Temperature 100.4 F 98.9 F Pulse Rate 85 79 Respiratory Rate 20 16 Blood Pressure 101/63 105/58 L Pulse Oximetry 95 95 Oxygen Delivery Method Room Air Room Air BMI result Body Mass Index 22.6 Const General: comfortable, alert and awake Nutritional Appearance: well nourished HENUT Head: Yes normal to inspection and Yes atraumatic Ears: hearing grossly normal bilaterally and external ears normal General nose exam: Normal external nose present, no nasal discharge noted and no epistaxis Face and sinus: Yes normal facial exam, No abrasion and No laceration Mouth: Normal oral and palatal mucosa present, no drooling and no muffled voice Eyes General: appearance normal, both eyes and all related structures Periorbital: periorbital findings normal Eyelids: Yes eyelids normal Conjunctivae: conjunctivae normal Pupils: Equal, round and reactive pupils present EOM: EOMs intact bilaterally Neck Neck: Yes normal visual inspection, Yes full ROM and Yes no lymphadenopathy Chest Chest palpation & inspection: normal inspection of the chest Resp Effort & Inspection: normal respiratory effort and Actively coughing Auscultation: rhonchi throughout Cardio Rate: regular rate Rhythm: regular rhythm GI Inspection: Yes normal to inspection Neuro General: moves all extremities Cranial nerves: Yes Equal, round and reactive pupils present Cognition (Neuro): normal cognition Motor exam (neuro): 5/5 motor strength present throughout Sensory Exam: Normal double simultaneous stimulation for sensation Coordination: [id number] test normal Extrem General: Yes normal to inspection, Yes full ROM and Yes capillary refill normal Psych Appearance: grossly normal Mental Status: mental status grossly normal Affect: normal affect Attitude: cooperative Thought process: Normal thought process present Thought content: Normal thought content present Insight: Good insight present (Psych) Medications Administered Discontinued Medications Generic Name Dose Route Start Last Admin Trade Name Paul PRN Reason Stop Dose Admin Acetaminophen 650 mg 01/02/22 11:32 01/02/22 11:40 Acetaminophen Oral Liquid 650 Mg/20.3 Ml Solution PO 01/02/22 11:33 650 mg ONCE ONE Administration Ceftriaxone Sodium 1 gm/ 50 mls @ 100 mls/hr 01/02/22 11:27 01/02/22 12:01 Sodium Chloride IV 01/02/22 11:56 Infused ONCE ONE Infusion Sodium Chloride 1,905.09 mls @ 1,905.09 mls/hr 01/02/22 11:32 01/02/22 14:49 Ns 30 ml/kg infuse over 1 hr (1905.09 ml) 01/02/22 12:31 Infused IV Infusion .Q1H STA Medical Decision Making MDM Narrative Medical decision making narrative: Patient is a 66 year old assigned male at with a history of non-verbal autism and pica presenting to the emergency department today with a cough and a fever. Patient's physical exam showed a febrile individual with rhonci throughout his lungs. Patient's blood work showed WBC count of 13 and lactic acid of 2.3. Patient's EKG was unremarkable. Patient's chest x-ray showed bilateral increased interstitial markings slightly greater on the right side. Patient's clinical presentation is consistent with sepsis. Sepsis alert was called. Patient was given IV rocephin as well as the appropriate 30mg/kg NS. I spoke to the hospitalist team who agreed to admission. I explained my physical exam findings as well as all test results to the patient and the patient's staff member at the bedside. I answered all questions asked by the patient's staff member at the bedside. Patient's bedside staff member verbalized agreement and understanding with this treatment plan and admission. Medical Records Medical records reviewed: Yes I reviewed the patient's medical records. Lab Data Lab results reviewed: Yes I reviewed the patient's lab results. Result diagrams: 01/02/22 10:48 01/02/22 10:47 Labs: Lab Results 01/02/22 01/02/22 01/02/22 Range/Units 10:47 10:48 10:48 WBC 13.0 H (4.8-10.8) X10*3/uL RBC 3.74 L (4.60-5.80) X10*6/uL Hgb 11.5 L (14.0-18.0) g/dl Hct 35.1 L (42.0-52.0) % MCV 93.9 (80.0-98.0) fL MCH 30.7 (27.0-33.0) pg MCHC 32.8 (31.0-36.0) g/dl RDW 15.2 (11.0-16.0) % Plt Count 291 D (160-400) X10*3/uL MPV 9.0 L (9.4-12.4) fL Immature Gran % (Auto) Cancelled Neut % (Auto) Cancelled Lymph % (Auto) Cancelled [facility] % (Auto) Cancelled Eos % (Auto) Cancelled Baso % (Auto) Cancelled Lymph # (Auto) Cancelled [facility] # (Auto) Cancelled Eos # (Auto) Cancelled Baso # (Auto) Cancelled Abs Immat Gran (auto) Cancelled Absolute Neuts (auto) Cancelled Absolute Nucleated RBC 0.000 (0.0-0.012) X10*3/uL Nucleated RBC % (auto) 0.0 (0.0-0.2) /100WBC Neutrophils % (Manual) 79 H (45-73) % Band Neutrophils % 16 H (3-5) % Lymphocytes % (Manual) 2 L (20-40) % Monocytes % (Manual) 3 (2-11) % Abs Neuts (Manual) 12.4 H (2.0-8.3) X10*3/uL Lymphocytes # (Manual) 0.3 L (1.2-4.9) X10*3/uL Monocytes # (Manual) 0.4 (0.1-1.2) X10*3/uL Platelet Estimate NORMAL (NORMAL) Plt Morphology Comment NORMAL RBC Morphology NOTED Hypochromasia 1+ (5-14) /OIF Sodium 140 (135-145) mmol/L Potassium 4.0 (3.3-5.1) mmol/L Chloride 101 (96-108) mmol/L Carbon Dioxide 29 (22-29) mmol/L Anion Gap 14 (12-20) BUN 23 H (9-16) mg/dL Creatinine 1.22 (0.5-1.4) mg/dL Estim Creat Clear Calc 53.4 Estimated GFR 59 Random Glucose 90 (60-115) mg/dL Lactic Acid 2.3 H* (0.5-2.0) mmol/L Lactic Acid F/U @ 2Hr (0.5-2.0) mmol/L Calcium 9.5 (8.4-10.2) mg/dL Magnesium 2.1 (1.6-2.6) mg/dL Total Bilirubin < 0.2 (0.0-1.0) mg/dL AST 20 D (5-37) U/L ALT 15 (0-40) U/L Alkaline Phosphatase 97 D (39-117) U/L Troponin I High Sens (<3.5-35.0) ng/L B-Natriuretic Peptide (<100) pg/mL Total Protein 9.0 H (6.5-8.0) g/dL Albumin 3.8 (3.5-5.0) g/dL Influenza Type A (PCR) (Negative) Influenza Type B (PCR) (Negative) RSV RNA Qual (PCR) (Negative) SARS-CoV-2 RNA (RT-PCR) (Negative) 01/02/22 01/02/22 01/02/22 Range/Units 10:48 10:48 12:41 WBC (4.8-10.8) X10*3/uL RBC (4.60-5.80) X10*6/uL Hgb (14.0-18.0) g/dl Hct (42.0-52.0) % MCV (80.0-98.0) fL MCH (27.0-33.0) pg MCHC (31.0-36.0) g/dl RDW (11.0-16.0) % Plt Count (160-400) X10*3/uL MPV (9.4-12.4) fL Immature Gran % (Auto) Neut % (Auto) Lymph % (Auto) [facility] % (Auto) Eos % (Auto) Baso % (Auto) Lymph # (Auto) [facility] # (Auto) Eos # (Auto) Baso # (Auto) Abs Immat Gran (auto) Absolute Neuts (auto) Absolute Nucleated RBC (0.0-0.012) X10*3/uL Nucleated RBC % (auto) (0.0-0.2) /100WBC Neutrophils % (Manual) (45-73) % Band Neutrophils % (3-5) % Lymphocytes % (Manual) (20-40) % Monocytes % (Manual) (2-11) % Abs Neuts (Manual) (2.0-8.3) X10*3/uL Lymphocytes # (Manual) (1.2-4.9) X10*3/uL Monocytes # (Manual) (0.1-1.2) X10*3/uL Platelet Estimate (NORMAL) Plt Morphology Comment RBC Morphology Hypochromasia /OIF Sodium (135-145) mmol/L Potassium (3.3-5.1) mmol/L Chloride (96-108) mmol/L Carbon Dioxide (22-29) mmol/L Anion Gap (12-20) BUN (9-16) mg/dL Creatinine (0.5-1.4) mg/dL Estim Creat Clear Calc Estimated GFR Random Glucose (60-115) mg/dL Lactic Acid (0.5-2.0) mmol/L Lactic Acid F/U @ 2Hr (0.5-2.0) mmol/L Calcium (8.4-10.2) mg/dL Magnesium (1.6-2.6) mg/dL Total Bilirubin (0.0-1.0) mg/dL AST (5-37) U/L ALT (0-40) U/L Alkaline Phosphatase (39-117) U/L Troponin I High Sens 3.4 (<3.5-35.0) ng/L B-Natriuretic Peptide 72 (<100) pg/mL Total Protein (6.5-8.0) g/dL Albumin (3.5-5.0) g/dL Influenza Type A (PCR) NEGATIVE (Negative) Influenza Type B (PCR) NEGATIVE (Negative) RSV RNA Qual (PCR) NEGATIVE (Negative) SARS-CoV-2 RNA (RT-PCR) NEGATIVE (Negative) 01/02/22 Range/Units 13:33 WBC (4.8-10.8) X10*3/uL RBC (4.60-5.80) X10*6/uL Hgb (14.0-18.0) g/dl Hct (42.0-52.0) % MCV (80.0-98.0) fL MCH (27.0-33.0) pg MCHC (31.0-36.0) g/dl RDW (11.0-16.0) % Plt Count (160-400) X10*3/uL MPV (9.4-12.4) fL Immature Gran % (Auto) Neut % (Auto) Lymph % (Auto) [facility] % (Auto) Eos % (Auto) Baso % (Auto) Lymph # (Auto) [facility] # (Auto) Eos # (Auto) Baso # (Auto) Abs Immat Gran (auto) Absolute Neuts (auto) Absolute Nucleated RBC (0.0-0.012) X10*3/uL Nucleated RBC % (auto) (0.0-0.2) /100WBC Neutrophils % (Manual) (45-73) % Band Neutrophils % (3-5) % Lymphocytes % (Manual) (20-40) % Monocytes % (Manual) (2-11) % Abs Neuts (Manual) (2.0-8.3) X10*3/uL Lymphocytes # (Manual) (1.2-4.9) X10*3/uL Monocytes # (Manual) (0.1-1.2) X10*3/uL Platelet Estimate (NORMAL) Plt Morphology Comment RBC Morphology Hypochromasia /OIF Sodium (135-145) mmol/L Potassium (3.3-5.1) mmol/L Chloride (96-108) mmol/L Carbon Dioxide (22-29) mmol/L Anion Gap (12-20) BUN (9-16) mg/dL Creatinine (0.5-1.4) mg/dL Estim Creat Clear Calc Estimated GFR Random Glucose (60-115) mg/dL Lactic Acid (0.5-2.0) mmol/L Lactic Acid F/U @ 2Hr 1.6 (0.5-2.0) mmol/L Calcium (8.4-10.2) mg/dL Magnesium (1.6-2.6) mg/dL Total Bilirubin (0.0-1.0) mg/dL AST (5-37) U/L ALT (0-40) U/L Alkaline Phosphatase (39-117) U/L Troponin I High Sens (<3.5-35.0) ng/L B-Natriuretic Peptide (<100) pg/mL Total Protein (6.5-8.0) g/dL Albumin (3.5-5.0) g/dL Influenza Type A (PCR) (Negative) Influenza Type B (PCR) (Negative) RSV RNA Qual (PCR) (Negative) SARS-CoV-2 RNA (RT-PCR) (Negative) Imaging Data Chest x-ray: Attestation: I personally reviewed and interpreted this imaging study as follows: My impression: No acute process. Radiologist's impression: EXAMINATION: XR CHEST CLINICAL INFORMATION: SOB. COMPARISON: Chest 12/24/2021 TECHNIQUE: Frontal view of the chest was obtained. FINDINGS: The patient is rotated to the right with increased bilateral markings slightly greater on the right side. No consolidation or pleural effusion. Heart size and pulmonary vascularity is normal.. No gross bony abnormality seen. XR/XR chest 1V IMPRESSION: Bilateral increased interstitial markings slightly greater on the right side. No consolidation or pleural effusion seen. Dictated By: Fernie Arellano MD Signed By: Electronically signed by Fernie Arellano MD 01/02/22 1021 ECG Data Attestation: I personally reviewed and interpreted this ECG as follows: Prior ECG tracings: available for review Interpretation: Vent. Rate: 097 BPM ? ? Atrial Rate: 097 BPM P-R Int: 148 ms? QRS Dur: 090 ms QT Int: 364 ms ? ? ? P-R-T Axes: 056 038 038 degrees QTc Int: 462 ms ? Normal sinus rhythm Nonspecific ST and T wave abnormality Abnormal ECG When compared with ECG of 24-DEC-2021 08:50, Nonspecific T wave abnormality now evident in Lateral leads DD/ [id number] Critical Care Time Critical Care Time Critical Care Time: Yes Total Critical Care Time: 30 Attestation: I spent 30 minutes of Critical Care Time with this patient. This does not include time spent on separately reported billable procedures. Discharge Plan Discharge Clinical Impression: Sepsis, Pneumonia Patient Disposition: Admitted As Inpatient
--- NOTE | 2022-01-02 09:26 | ECG_ITS ---
Test Reason : SOB Blood Pressure : / mmHG Vent. Rate : 097 BPM Atrial Rate : 097 BPM P-R Int : 148 ms QRS Dur : 090 ms QT Int : 364 ms P-R-T Axes : 056 038 038 degrees QTc Int : 462 ms Normal sinus rhythm RSR' or QR pattern in V1 suggests right ventricular conduction delay Nonspecific ST and T wave abnormality Abnormal ECG When compared with ECG of 24-DEC-2021 08:50, Nonspecific T wave abnormality now evident in Lateral leads Referred By: Karla Knight Electronically Signed By:MARLON CHAPA MD
--- NOTE | 2022-01-02 10:17 | PHA.MEDREC ---
Pharmacy Consult ? Medication Reconciliation Pharmacy has completed the medication reconciliation. Patient had healthcare business analyst with him at bedside, provided me with a list. OF NOTE: the medication list says that patient can only handle 5 ml doses at a time. Quick note for nursing staff.
--- OUTSIDE RECORDS SUMMARY | 2022-01-02 10:22 | XMS_ITS | Continuity of Care Document ---
:1955 Author Organization [facility] Address [address] [place] [address]- Care Team Providers Name Role Phone Claire TOWNSEND, Tomy Rosales Primary Care Physician [facility] Date[facility]): 09/20/21 - 10/20/21 [facility] [address] [place] [address]- Allergies, Adverse Reactions, Alerts Substance Reaction Severity Status metoclopramide Active Haldol unknown Active Reglan unknown Active Immunizations Given and Recorded Vaccine Date Status Refusal Reason pneumococcal 20-valent conjugate vaccine 08/25/21 Given influenza virus vaccine, inactivated 12/27/20 Recorded influenza virus vaccine, inactivated 11/27/19 Given influenza virus vaccine, inactivated 12/19/17 Given influenza virus vaccine, inactivated1 11/12/16 Given influenza virus vaccine, inactivated 12/02/15 Given influenza virus vaccine, inactivated 11/11/14 Given influenza virus vaccine, inactivated2 11/05/08 Given influenza virus vaccine, inactivated 12/12/06 Given influenza virus vaccine, inactivated3 12/24/05 Given SARS-CoV-2 (COVID-19) mRNA BNT-162b2 vac 12/27/20 Recorde d SARS-CoV-2 (COVID-19) mRNA BNT-162b2 vac 04/11/20 Recorde d SARS-CoV-2 (COVID-19) mRNA BNT-162b2 vac 02/29/20 Recorde d tetanus/diphtheria/pertussis, acel(Tdap) 03/10/19 Given zoster vaccine, inactivated 12/19/17 Recorded zoster vaccine, inactivated 09/18/17 Recorded Zoster Vaccine Live4 07/28/15 Recorded pneumococcal 23-valent vaccine 05/19/15 Given Tet/diphth/pertussis, acel (oldterm)5 06/14/09 Given Hepatitis A Vaccine (oldterm)6 06/14/09 Given Hepatitis A Adult Vaccine7 12/17/08 Given Influenza Inactive (IM) (oldterm) 12/03/07 Given Pneumococcal Vaccine (oldterm) 01/04/06 Given tetanus-diphtheria toxoids (Td) 11/16/99 Given 1Result Comment: [11/12/2016] [id number] Note: VIS: 09/28/083Admin Note: VIS 08/17/[id number] History: [facility] [id number] Note: VIS: 01/06/086Admin Note: VIS: 08/02/057Admin Note: VIS:08/02/05 Medications acetaminophen 325 mg oral tablet See Instructions, 2 TABS BY MOUTH EVERY 6 HRS FOR DISCOMFORT/PIEDRA/TEMP>101/UNSTEADI- NESS(HEAVY BREATHING)/MAPAP/CALL MD IF GIVING > 7 DAYS/JGDD=666EX 8 TABS/DAY MAX/SEE ANCILLARY, # 120 tablet, Refills 1, Instructions Replace Required Details, Route to... Start Date: 08/24/21 Status: OrderedAcid Gone 95 mg-358 mg/15 mL oral suspension See Instructions, TAKE 2 TEASPOONFULS BY MOUTH 4 TIMES A DAY (AFTER MEALS AND AT BEDTIME) / SHAKE WELL, FOR GERD DOSE = 10 ML, # 1,065 mL, 5 Refills, [facility], 26, TAKE 2 TEASPOONFULS BY MOUTH 4TIMES A DAY (AFTER MEALS AND AT BEDTIME) / SHAKE... Start Date: 09/18/21 Status: Orderedbacitracin zinc 500 units/g topical ointment See Instructions, APPLY A DIME SIZE AMOUNT TO SUPERFICIAL WOUNDS TWICE DAILY NEEDED ANTIBACTERIAL / CALL MD IF USING LONGER THAN 7 DAYS, # 28.4 Gm, 11 Refills, [facility], 10, APPLY A DIME SIZE AMOUNT TO SUPERFICIAL WOUNDS TWICE DAILY NE... Start Date: 08/18/21 Status: OrderedBenefiber oral powder for reconstitution 5 mL, By Mouth, 2 times a day, PRN as needed for constipation, # 155 Gm, 1 Refills, Maintenance, 03/30/20 13:47:00 EST, REC Powder, [facility], 5 mL By Mouth 2 times a day,PRN:as needed for constipation, 163, cm, 01/11/20 8:05:00 EST, Height, 72,... Start Date: 03/30/20 Status: Orderedcitalopram 20 mg oral tablet 3 tablets, By Mouth, Daily, # 30 tablet, Refills 0, Maintenance, 05/02/15 8:18:23 Start Date: 05/02/15 Stop Date: 06/01/15 Status: OrderedCompression Stockings See Instructions, # 2 Unknown, Refills 1, Tot. Refills 1, Maintenance, surgical, calf length 20-30 mm Hg Dx: I87.2 Venous insufficiency (chronic) (peripheral), 08/25/21 11:33:00 EDT, Compound Start Date: 08/25/21 Status: Ordereddocusate sodium 100 mg oral capsule See Instructions, TAKE 2 CAPSULES BY MOUTH TWICE DAILY FOR CONSTIPATION DOSE = 200 MG, # 120 capsule, 1 Refills, Maintenance, 10/13/21 14:13:00 EDT, [facility], 163, cm, 08/25/21 11:00:00 EDT, Height Start Date: 10/13/21 Status: Ordereddoxazosin 8 mg oral tablet 1 tablet = 8 mg, By Mouth, Daily, prescribed by Urology Dr. Tolliver, # 30 tablet, 0 Refills, Maintenance, 10/13/20 9:52:00 EDT, Tablet, Partial fill upon patient request if the prescription is for a schedule II opioid drug. Start Date: 10/13/20 Status: OrderedDysphagia consultation Dysphagia consultation, See Instructions, # 1 each, Refills 0, Tot. Refills 0, Maintenance, Please evaluate patient for dysphagia including MBSS and esophageal assessment to stomach, 10/24/18 14:57:50 EDT, Compound Start Date: 10/24/18 Status: Orderedfinasteride 5 mg oral tablet 1 tablet = 5 mg, By Mouth, Daily, prescribed by Urology Dr. Tolliver, # 30 tablet, 0 Refills, Maintenance, 10/13/20 9:52:00 EDT, Tablet, Partial fill upon patient request if the prescription is for a schedule II opioid drug. Start Date: 10/13/20 Status: OrderedGuaiFENesin DM 10 mg-100 mg/5 mL oral liquid See Instructions, 2 teasponn q 6 hour prn, # 120 mL, 0 Refills, Maintenance, 11/18/19 14:25:00 EDT, [facility], 2 teasponn q 6 hour prn, 163, cm, 08/17/19 9:56:00 EDT, Height, 72, kg, 04/13/18 8:58:00 EST, Dry Weight Start Date: 11/18/19 Status: Orderedketoconazole 2% topical cream 1 application, Topically, Daily, # 60 Gm, 0 Refills, Maintenance, 11/12/16 16:09:35, Cream, 1 application Topically Daily Start Date: 11/12/16 Status: Orderedloratadine 10 mg oral tablet 1, tablet, By Mouth, Daily in AM, FOR ALLERGIES., # 30 tablet, Refills 5, Route to Pharmacy Electronically, [facility], 163, cm, 03/28/21 11:55:00 EST, Height Start Date: 08/04/21 Status: Orderedlubiprostone 24 mcg oral capsule 1 capsule = 24 mcg, By Mouth, 2 times a day, # 60 capsule, 0 Refills, Maintenance, 05/18/15 3:07:13,Capsule Start Date: 05/18/15 Status: OrderedMilk of Magnesia 8% oral suspension 30 mL, By Mouth, Daily at bedtime, FOR CONSTIPATION., # 900 mL, 5 Refills, [facility], 163, cm,10/13/20 9:36:00 EDT, Height Start Date: 10/17/20 Status: OrderedMilk of Magnesia 8% oral suspension See Instructions, TAKE 30 ML BY MOUTH DAILY AT BEDTIME FOR CONSTIPATION, # 900 mL, 5 Refills, [facility], 163, cm, 03/28/21 11:55:00 EST, Height Start Date: 05/30/21 Status: OrderedMiscellaneous Rx 8 oz, By Mouth, 2 times a day, # 236 Gm, 1 Refills, Maintenance, TAKE WITH PLENTY OF. OF WATER) FOR CONSTIPATION., 12/15/19 9:57:00 EDT, 163, cm, 08/17/19 9:56:00 EDT, Height, 72, kg, 04/13/18 8:58:00 EST, Dry Weight Start Date: 12/15/19 Status: OrderedNutritional Supplements See Instructions, # 90 each, Refills 11, Tot. Refills 11, Maintenance, Ensure supplement 3 times daily with meals secondary to weight loss., 10/22/19 14:18:00 EDT, Supply, Dry Weight Start Date: 10/22/19 Status: Orderedomeprazole 40 mg oral enteric coated capsule 1 capsule = 40 mg, By Mouth, Daily, # 30 capsule, 0 Refills, Maintenance, EC Capsule Start Date: 02/24/11 Status: Orderedpolyethylene glycol 3350 oral powder for reconstitution See Instructions, Take 1 capfull 2x daily, # 1,054 Gm, 5 Refills, Maintenance, 08/03/21 15:55:00 EDT, [facility], Take 1 capfull 2x daily, 163, cm, 03/28/21 11:55:00 EST, Height Start Date: 08/03/21 Status: Orderedpsyllium 3.4 gm/11 gm oral powder for reconstitution = 3.4 Gm, By Mouth, 2 times a day, PRN as needed for constipation, Reguloid dissolve in 8 oz of fluid, # 390 Gm, 5 Refills, Maintenance, 07/27/19 15:38:00 EDT, REC Powder, [facility], 163, cm, 03/10/19 14:39:00 EST, Height, 72, kg, 04/13/18 8:58... Start Date: 07/27/19 Status: OrderedReguloid 3.4 gm/11 gm oral powder for reconstitution See Instructions, 1 tblspn By Mouth 2 times a day, # 390 Gm, 1 Refills, Maintenance, 06/14/17 10:44:11 EDT Start Date: 06/14/17 Status: OrderedShingrix intramuscular injection 0.5 mL, Intramuscular, Once, to be injected by pharmacy, # 0.5 mL, 1 Refills, Soft Stop, 07/29/17 11:53:55 EDT, 0.5 mL Intramuscular Once,Instr:to be injected by pharmacy Start Date: 07/29/17 Status: Orderedsimethicone 20 mg/0.3 mL oral suspension 0.6 mL, By Mouth, 3 times a day, SIMETHICONE., # 30 mL, 10 Refills, [facility], 163, cm, 03/28/21 11:55:00 EST, Height Start Date: 08/23/21 Status: OrderedTussin DM 10 mg-100 mg/5 ml oral liquid 10 mL, By Mouth, Every 4 hours, PRN as needed for cough, # 240 mL, 3 Refills, Maintenance, 08/15/18 13:19:31 EDT, Syrup, 10 mL By Mouth Every 4 hours,PRN:as needed for cough Start Date: 08/15/18 Status: Orderedvalproic acid 250 mg/5 ml oral syrup 20 mL = 1,000 mg, By Mouth, 2 times a day, 0 Refills, Maintenance, 03/17/11 9:18:13 Start Date: 03/17/11 Status: OrderedZostavax subcutaneous injection 0.65 mL, Subcutaneous Infusion, Once, # 0.65 mL, 0 Refills, Soft Stop, 07/22/15 9:52:26 Start Date: 07/22/15 Status: Ordered Problem List Condition Effective Dates Status Health Status Informant Aspiration pneumonia(Confirmed) Active Bipolar disorder(Confirmed) Active Dysphagia(Confirmed) Active History of small bowel Active obstruction(Confirmed)1 History of BPH(Confirmed) Active H/O colonoscopy(Confirmed)2 Active Hydrocele, left(Confirmed) Active Hypercholesterolemia(Confirmed) Active Intention tremor(Confirmed) Active OCD (obsessive compulsive Active disorder)(Confirmed) Pica(Confirmed) Active Unsteady gait(Confirmed) Active [facility] [id number] 2011 normal, repeat 2021. Social History Social History Type Response Smoking Status Never smoker entered on: 07/22/15 Sex Male Care Team PersonnelName: Claire TOWNSEND, Tomy Rosales Address: [address] [place] [id number]
--- OUTSIDE RECORDS SUMMARY | 2022-01-02 10:22 | XMS_ITS | Continuity of Care Document ---
:1955 Author Organization [facility] Address [address] [place] [id number]- Care Team Providers Name Role Phone Claire TOWNSEND, Tomy Rosales Primary Care Physician [facility]): 09[facility]/21 - 09/13/[address] [address] Attending Physician: Diogo Mills MD Allergies, Adverse Reactions, Alerts Substance Reaction Severity [...] toxoids (Td) 11/16/99 Given 1Result Comment: [11/12/2016] [id number] Note: VIS: 09/28/083Admin Note: VIS [id number] History: [facility] [id number] Note: VIS: 01/06/086Admin Note: VIS: 08/02/057Admin Note: VIS:08/02/05 Medications acetaminophen 325 mg oral tablet See Instructions, 2 TABS BY MOUTH EVERY 6 HRS FOR DISCOMFORT/PIEDRA/TEMP>101/UNSTEADI- NESS(HEAVY BREATHING)/MAPAP/CALL MD IF GIVING > 7 DAYS/PESY=376YR 8 TABS/DAY MAX/SEE ANCILLARY, # 120 tablet, Refills 1, Instructions Replace Required Details, Route to... Start Date: 08/24/21 Status: OrderedAcid Gone 95 mg-358 mg/15 mL oral suspension See Instructions, TAKE 2 TEASPOONFULS BY MOUTH 4 TIMES A DAY (AFTER MEALS AND AT BEDTIME) / SHAKE WELL, FOR GERD DOSE = 10 ML, # 1,065 mL, 5 Refills, [facility], 26, TAKE 2 TEASPOONFULS BY MOUTH 4TIMES A DAY (AFTER MEALS AND AT BEDTIME) / SHAKE... Start Date: 03/30/21 Status: Orderedbacitracin zinc 500 units/g topical ointment See Instructions, APPLY A DIME SIZE AMOUNT TO SUPERFICIAL WOUNDS TWICE DAILY NEEDED ANTIBACTERIAL / CALL MD IF USING LONGER THAN 7 DAYS, # 28.4 Gm, 11 Refills, [facility], 10, APPLY A DIME SIZE AMOUNT TO SUPERFICIAL WOUNDS TWICE DAILY NE... Start Date: 08/18/21 Status: OrderedBenefiber oral powder for reconstitution 5 mL, By Mouth, 2 times a day, PRN as needed for constipation, # 155 Gm, 1 Refills, Maintenance, 03/30/20 13:47:00 EST, REC Powder, [facility], 5 mL By Mouth 2 times [...] DOSE = 200 MG, # 120 capsule, 5 Refills, [facility], 163, cm, 03/28/21 11:55:00 EST, Height Start Date: 04/13/21 Status: Ordereddoxazosin 8 mg oral tablet 1 [...] mL, 0 Refills, Maintenance, 11/18/19 14:25:00 EDT, [facility], 2 teasponn q 6 hour prn, [...] tablet, Refills 5, Route to Pharmacy Electronically, [facility], 163, cm, 03/28/21 11:55:00 EST, Height Start Date: 08/04/21 Status: Orderedlubiprostone 24 mcg oral capsule 1 capsule = 24 mcg, By Mouth, 2 times a day, # 60 capsule, 0 Refills, Maintenance, 05/18/15 3:07:13,Capsule Start Date: 05/18/15 Status: OrderedMilk of Magnesia 8% oral suspension 30 mL, By Mouth, Daily at bedtime, FOR CONSTIPATION., # 900 mL, 5 Refills, [facility], 163, cm,10/13/20 9:36:00 EDT, Height Start Date: 10/17/20 Status: OrderedMilk of Magnesia 8% oral suspension See Instructions, TAKE 30 ML BY MOUTH DAILY AT BEDTIME FOR CONSTIPATION, # 900 mL, 5 Refills, [facility], 163, cm, 03/28/21 11:55:00 EST, Height Start [...] Gm, 5 Refills, Maintenance, 08/03/21 15:55:00 EDT, [facility], Take 1 capfull 2x daily, 163, cm, 03/28/21 11:55:00 EST, Height Start Date: 08/03/21 Status: Orderedpsyllium 3.4 gm/11 gm oral powder for reconstitution = 3.4 Gm, By Mouth, 2 times a day, PRN as needed for constipation, Reguloid dissolve in 8 oz of fluid, # 390 Gm, 5 Refills, Maintenance, 07/27/19 15:38:00 EDT, REC Powder, [facility], 163, cm, 03/10/19 14:39:00 EST, Height, [...] day, SIMETHICONE., # 30 mL, 10 Refills, [facility], 163, cm, 03/28/21 11:55:00 EST, Height [...] Active disorder)(Confirmed) Pica(Confirmed) Active Unsteady gait(Confirmed) Active [facility] [id number] 2011 normal, repeat 2021. Social History Social History Type Response Smoking Status Never smoker entered on: 07/22/15 Sex Male
--- OUTSIDE RECORDS SUMMARY | 2022-01-02 10:22 | XMS_ITS ---
:1955 Author Care Team Providers Name Role Phone ROXANNA ZIMMERMAN MD Primary Care Provider [phone] Allergies Code Code System Name Reaction Severity Status Onset Haldol ? ? Active ? 9230 RxNorm Reglan ? ? Active ? Medications Name Status Start Date Stop Date ? ? acetaminophen 325 mg tablet Active ? Not available Acid Gone Antacid 95 mg-358 mg/15 mL oral suspension Active ? Not available Amitiza 24 mcg capsule Completed ? amoxicillin 875 mg-potassium clavulanate 125 mg tablet Active ? Not available bacitracin zinc 500 unit/gram topical ointment Active ? Not available citalopram 20 mg tablet Active ? Not avai lable citalopram 40 mg tablet Active ? Not avai lable docusate sodium 100 mg capsule Active ? N ot available doxazosin 8 mg tablet Active ? Not availa ble doxycycline hyclate 100 mg tablet Active ? Not available finasteride 5 mg tablet Active ? Not avai lable Infants Simethicone 40 mg/0.6 mL oral drops,suspension Active ? Not available little tummys gas relief dr Active ? Not available loratadine 10 mg tablet Active ? Not avai lable Milk of Magnesia 400 mg/5 mL oral suspension Active ? Not available olanzapine 10 mg tablet Active ? Not avai lable olanzapine 20 mg tablet Active ? Not avai lable omeprazole 20 mg capsule,delayed release Active ? Not available Tussin DM Active ? Not available valproic acid (as sodium salt) 250 mg/5 mL oral solution Active ? Not available Problems Name Status Onset Date Source ? Bipolar Disorder Active 12/05/2020 ? Procedures Date Name Performed by ? 12/05/2020 XR, Chest, 2 View [facility] [employer] [address] [place] [address] (Work Place) Notes: s/p partial small bowel resecti on unsure of date per [facility] staff Results Lab Results None recorded. Past Encounters 12/05/2020 Cough; Aspiration Pneumonia OFEL[facility] Ewing: [address], [place] [address], Ph. [phone] Social History Tobacco Smoking Status Never Smoker Vaccine List None recorded. Plan of Care Reminders Provider Appointments None recorded. ? ? Lab None recorded. ? ? Referral None recorded. ? ? Procedures None recorded. ? ? Surgeries None recorded. ? ? Imaging None recorded. ? ? Vitals Blood Pressure 102/52 mm[Hg]
[2022-01-02 11:05] LABS: Hematocrit 35.1 % (42.0-52.0); Hemoglobin 11.5 g/dl (14.0-18.0); Mean Corpuscular HGB Conc 32.8 g/dl (31.0-36.0); Mean Corpuscular Hemoglobin 30.7 pg (27.0-33.0); Mean Corpuscular Volume 93.9 fL (80.0-98.0); Platelet Count 291 X10*3/uL (160-400); Red Blood Count 3.74 X10*6/uL (4.60-5.80); Red Cell Distribution Width 15.2 % (11.0-16.0)
[2022-01-02 11:23] LABS: Alanine Aminotransferase 15 U/L (0-40); Albumin Level 3.8 g/dL (3.5-5.0); Alkaline Phosphatase 97 U/L (39-117); Anion Gap 14 (12-20); Aspartate Amino Transferase 20 U/L (5-37); Bilirubin Total < 0.2 mg/dL (0.0-1.0); Blood Urea Nitrogen 23 mg/dL (9-16); Calcium 9.5 mg/dL (8.4-10.2); Carbon Dioxide 29 mmol/L (22-29); Chloride 101 mmol/L (96-108); Creatinine Clr Calc Pharmacy 53.4; Estimated Glomerular Filt Rate 59; Glucose Random 90 mg/dL (60-115); Magnesium 2.1 mg/dL (1.6-2.6); Sodium 140 mmol/L (135-145)
[2022-01-02 11:27] LABS: Troponin-I High Sensitivity 3.4 ng/L (<3.5-35.0)
[2022-01-02 11:29] LABS: B Type Natriuretic Peptide 72 pg/mL (<100); Lactic Acid 2.3 mmol/L (0.5-2.0)
[2022-01-02 11:35] LABS: Neutrophils Percent Manual 79 % (45-73)
[2022-01-02 11:36] LABS: Band Neutrophils Percent 16 % (3-5); Lymphocytes Absolute Manual 0.3 X10*3/uL (1.2-4.9); Lymphocytes Percent Manual 2 % (20-40); Monocytes Absolute Manual 0.4 X10*3/uL (0.1-1.2); Monocytes Percent Manual 3 % (2-11); Neutrophils Absolute Manual 12.4 X10*3/uL (2.0-8.3)
[2022-01-02 11:37] LABS: Hypochromasia 1+ (5-14) /OIF; Platelet Estimate NORMAL (NORMAL); Platelet Morphology Comment NORMAL; RBC Morphology NOTED
[2022-01-02] MEDS: Acetaminophen Oral Liquid 650 MG/20.3 ML SOLUTION PO (11:40)
[2022-01-02] MEDS: cefTRIAXone sodium 1 GM in 0.9 % Sodium Chloride 50 ML IV (11:40)
[2022-01-02] MEDS: 0.9 % Sodium Chloride 1,905.09 ML 1905.09 ML IV (11:44)
[2022-01-02 12:55] LABS: Reflex Lactate? Lactic Acid Added
[2022-01-02 13:33] LABS: Influenza A PCR NEGATIVE (Negative); Influenza B PCR NEGATIVE (Negative); Resp Syncy Virus RNA Qual PCR NEGATIVE (Negative); SARS COV2 PCR INHOUSE NEGATIVE (Negative)
[2022-01-02 13:54] LABS: ~Lactic Acid-LAB USE ONLY 1.6 mmol/L (0.5-2.0)
--- NOTE | 2022-01-02 14:18 | P.HPHOSP_ITS ---
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 Patient had recent admission for aspiration pneumonia with discharge on 12/28/2021 and is currently still. On arrival, patient febrile to 101.4, tachypneic to 22, tachycardic to 102. No hypotension or hypoxia. WBC 13.0 with 16% bands, lactic acid 2.3, 1.6 on 2 hour repeat. Renal function and electrolyte level stable. Negative for COVID-19, RSV, and influenza. CXR showing bilateral increased interstitial markings slightly greater on the right side without any focal consolidation or pleural effusion. Given history, presumed aspiration pneumonia. Given 1 g ceftriaxone in the ED and 2 L IV NS. Patient is fully vaccinated against COVID-19 and boosted. Patient to be admitte d for aspiration pneumonia with severe sepsis. Review of Systems Review of Systems: +productive cough, fevers, abn gait per long term staff Otherwise unable to assess ROS Yes Unobtainable due to mental condition [facility] Medical History Anemia Autism Bipolar 1 disorder BPH (benign prostatic hyperplasia) Chronic renal disease Developmental non-verbal disorder Dysphagia GERD (gastroesophageal reflux disease) Hiatal hernia Hydrocele Hyperlipemia Hypertension Mentally challenged OCD (obsessive compulsive disorder) Pica Pneumonia Seizures Pertinent family history: Unable to obtain due to patient nonverbal status Surgical History H/O exploratory laparotomy History of colectomy Social History Household Members: Other Household Members Other:: long term Housing: Other Housing Other:: Long Term Do you presently have visiting nurse or other home services: Yes (long term) Unable to assess alcohol history related to: Unable to respond Alcohol intake: never Patient Tobacco Use Status: Never used Tobacco Advance Directives: Yes Advance Directives on File: Yes Advance Directives Date on File: 12/24/21 service: No Current occupational status: disabled Meds Allergies Allergy/AdvReac Type Severity Reaction Status Date / Time haloperidol [From HALDOL] AdvReac Unknown UNKNOWN Verified 12/09/19 11:22 metoclopramide [From REGLAN] AdvReac Unknown UNKNOWN Verified 12/09/19 11:22 Active Medications: Current Medications Pharmacy Consult (Consult Rx Perform Med Rec) 1 each MISCELLANE ONCE PRN PRN Reason: Consult order Pharmacy Consult (Consult Rx Perform Med Rec) 1 each MISCELLANE ONCE PRN PRN Reason: Consult order Home Medications Medication Instructions Recorded Confirmed Last Taken Type aluminum hydrox-magnesium carb 95 10 ml PO QIDWMHS 12/09/19 01/02/22 12/23/21 History mg-358 mg/15 mL oral suspension (Acid Gone Antacid) citalopram 20 mg tablet 60 mg PO DAILY 12/09/19 01/02/22 12/23/21 History docusate sodium 100 mg capsule 200 mg PO BID@0800,199912/09/19 01/02/22 12/23/21 History loratadine 10 mg tablet 10 mg PO DAILY 12/09/19 01/02/22 12/23/21 History olanzapine 10 mg tablet 10 mg PO DAILY 12/09/19 01/02/22 12/23/21 History olanzapine 20 mg tablet 20 mg PO BEDTIME 12/09/19 01/02/22 12/23/21 History omeprazole 20 mg capsule,delayed 40 mg PO DAILY@1600 12/09/19 01/02/22 12/23/21 History release polyethylene glycol 3350 17 17 g PO BID 12/09/19 01/02/22 12/23/21 History gram/dose oral powder simethicone 40 mg/0.6 mL oral 40 mg PO TID@0800,1600,199912/09/19 01/02/22 12/23/21 History drops,suspension (Gas Relief (simethicone)) valproic acid (as sodium salt) 250 1,000 mg PO BID 12/09/19 01/02/22 12/23/21 History mg/5 mL oral solution acetaminophen 325 mg tablet 650 mg PO Q6H PRN Pain 10/03/20 01/02/22 Unknown History dextromethorphan-guaifenesin 10 10 ml PO Q6H PRN Cough 10/03/20 01/02/22 Unknown History mg-100 mg/5 mL oral liquid bacitracin zinc 500 unit/gram 1 appl topical BID PRN Wound Care 12/24/21 01/02/22 Unknown History topical ointment wheat dextrin 3 gram/3.5 gram oral 1 packet PO BID 12/24/21 01/02/22 12/23/21 History powder (Best Fiber) magnesium hydroxide 400 mg/5 mL 30 ml PO DAILY PRN Constipation 01/02/22 01/02/22 Unknown History oral suspension (Milk of Magnesia) Physical Exam Vital Signs and Narrative: Vital Signs: Last Vital Signs Temp 100.4 F 01/02/22 12:36 Pulse 85 01/02/22 12:36 Resp 20 01/02/22 12:36 BP 101/63 01/02/22 12:36 Pulse Ox 95 01/02/22 12:36 O2 Del Method 01/02/22 12:36 BMI result Body Mass Index 22.6 Constitutional - Awake and Alert, No apparent distress Eyes - PERRLA, EOMI Cardiovascular - S1S2, RRR, No edema Respiratory - Normal lung expansion, Normal respiratory effort, No respiratory distress, rhonchi BLL Gastrointestinal - NT / ND; +BS; No rebound or guarding Extremities - no calf tenderness bilaterally, no swelling Skin - Warm/Dry Neurological - Alert. Unable to participate in exam and follow commands, pt nonverbal Psychological - Appropriate affect Results Labs CBC and Chem 7: 01/02/22 10:48 01/02/22 10:47 Labs: Laboratory Results - last 24 hr 01/02/22 01/02/22 01/02/22 10:47 10:48 10:48 MCV 93.9 MCH 30.7 MCHC 32.8 RDW 15.2 Plt Count 291 D MPV 9.0 L Immature Gran % (Auto) Cancelled Neut % (Auto) Cancelled Lymph % (Auto) Cancelled Cavalier % (Auto) Cancelled Eos % (Auto) Cancelled Baso % (Auto) Cancelled Lymph # (Auto) Cancelled Cavalier # (Auto) Cancelled Eos # (Auto) Cancelled Baso # (Auto) Cancelled Abs Immat Gran (auto) Cancelled Absolute Neuts (auto) Cancelled Absolute Nucleated RBC 0.000 Nucleated RBC % (auto) 0.0 Neutrophils % (Manual) 79 H Band Neutrophils % 16 H Lymphocytes % (Manual) 2 L Monocytes % (Manual) 3 Abs Neuts (Manual) 12.4 H Lymphocytes # (Manual) 0.3 L Monocytes # (Manual) 0.4 Platelet Estimate NORMAL Plt Morphology Comment NORMAL RBC Morphology NOTED Hypochromasia 1+ (5-14) Anion Gap 14 Estim Creat Clear Calc 53.4 Estimated GFR 59 Random Glucose 90 Lactic Acid 2.3 H* Lactic Acid F/U @ 2Hr Calcium 9.5 Magnesium 2.1 Total Bilirubin < 0.2 AST 20 D ALT 15 Alkaline Phosphatase 97 D Troponin I High Sens B-Natriuretic Peptide Total Protein 9.0 H Albumin 3.8 Influenza Type A (PCR) Influenza Type B (PCR) RSV RNA Qual (PCR) SARS-CoV-2 RNA (RT-PCR) 01/02/22 01/02/22 01/02/22 10:48 10:48 12:41 MCV MCH MCHC RDW Plt Count MPV Immature Gran % (Auto) Neut % (Auto) Lymph % (Auto) Cavalier % (Auto) Eos % (Auto) Baso % (Auto) Lymph # (Auto) Cavalier # (Auto) Eos # (Auto) Baso # (Auto) Abs Immat Gran (auto) Absolute Neuts (auto) Absolute Nucleated RBC Nucleated RBC % (auto) Neutrophils % (Manual) Band Neutrophils % Lymphocytes % (Manual) Monocytes % (Manual) Abs Neuts (Manual) Lymphocytes # (Manual) Monocytes # (Manual) Platelet Estimate Plt Morphology Comment RBC Morphology Hypochromasia Anion Gap Estim Creat Clear Calc Estimated GFR Random Glucose Lactic Acid Lactic Acid F/U @ 2Hr Calcium Magnesium Total Bilirubin AST ALT Alkaline Phosphatase Troponin I High Sens 3.4 B-Natriuretic Peptide 72 Total Protein Albumin Influenza Type A (PCR) NEGATIVE Influenza Type B (PCR) NEGATIVE RSV RNA Qual (PCR) NEGATIVE SARS-CoV-2 RNA (RT-PCR) NEGATIVE 01/02/22 13:33 MCV MCH MCHC RDW Plt Count MPV Immature Gran % (Auto) Neut % (Auto) Lymph % (Auto) Cavalier % (Auto) Eos % (Auto) Baso % (Auto) Lymph # (Auto) Cavalier # (Auto) Eos # (Auto) Baso # (Auto) Abs Immat Gran (auto) Absolute Neuts (auto) Absolute Nucleated RBC Nucleated RBC % (auto) Neutrophils % (Manual) Band Neutrophils % Lymphocytes % (Manual) Monocytes % (Manual) Abs Neuts (Manual) Lymphocytes # (Manual) Monocytes # (Manual) Platelet Estimate Plt Morphology Comment RBC Morphology Hypochromasia Anion Gap Estim Creat Clear Calc Estimated GFR Random Glucose Lactic Acid Lactic Acid F/U @ 2Hr 1.6 Calcium Magnesium Total Bilirubin AST ALT Alkaline Phosphatase Troponin I High Sens B-Natriuretic Peptide Total Protein Albumin Influenza Type A (PCR) Influenza Type B (PCR) RSV RNA Qual (PCR) SARS-CoV-2 RNA (RT-PCR) Imaging Radiologist's Impressions: Impressions Chest X-Ray 01/02/22 09:45 IMPRESSION: Bilateral increased interstitial markings slightly greater on the right side. No consolidation or pleural effusion seen. 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 Lactic acid initially 2.3, improved to 1.6 -treat pneumonia per below -vitals q.4h -continue IVF -follow CBC # pneumonia, likely aspiration-with severe sepsis as above -admit to med surg -IV Unasyn 3 mg q.6h -check MRSA swab, Legionella/pneumococcal urine antigens, and full respiratory panel -long term has historically refused PEG tube despite recurrent admissions for aspiration pneumonia due to quality of life -per long term and [employer] eval from 12/28, pureed diet and regular thin liquids with thin liquids only being given 1/2 tsp at a time. 1:1 feeds -[employer]EL[employer] to follow -aspiration precautions # seizure disorder - continue valproate # mood disorder - continue citalopram, olanzapine # GERD - continue PPI # prostatism - continue finasteride, doxazosin # VTE prophylaxis: LMWH # code status: full I anticipate that the patient will stay at least 2 midnights as an inpatient in the hospital due to the above reasons including severe sespsis with aspiration pneumonia requiring IV antibiotics, IV fluids, and close monitoring to prevent recurrent aspiration. Quality Stroke Does the patient have a stroke diagnosis?: No VTE Prior VTE?: No VTE Risk Level:: Medical - moderate - high VTE Device Contraindication: Treatment Not Indicated VTE Drug Contraindication: N/A - Med Ordered
--- OUTSIDE RECORDS SUMMARY | 2022-01-02 15:13 | XMS_ITS | Continuity of Care Document ---
:1955 Author Organization [facility] Address [address] [place] [address]- Care Team Providers Name Role Phone Tomy Rangel MD Primary Care Physician Encounter [facility] [place] Date(s): 08/23/20 - 08/30/20 [facility] [address] [place] [address]- Encounter Diagnosis Aspiration pneumonia (Discharge Diagnosis) - 08/23/20 Seizure disorder (Discharge Diagnosis) - 08/23/20 Attending Physician: Isaac ARROYO, Megan De Jesus Referring Physician: Tomy Rangel MD Allergies, Adverse Reactions, Alerts Substance Reaction Severity Status metoclopramide Active Haldol unknown Active Reglan unknown Active Immunizations Given and Recorded Vaccine Date Status Refusal Reason influenza virus vaccine, inactivated 11/27/19 Given influenza virus vaccine, inactivated 12/19/17 Given influenza virus vaccine, inactivated1 11/12/16 Given influenza virus vaccine, inactivated 12/02/15 Given influenza virus vaccine, inactivated 11/11/14 Given influenza virus vaccine, inactivated2 11/05/08 Given influenza virus vaccine, inactivated 12/12/06 Given influenza virus vaccine, inactivated3 12/24/05 Given tetanus/diphtheria/pertussis, acel(Tdap) 03/10/19 Given zoster vaccine, inactivated 12/19/17 Recorded zoster vaccine, inactivated 09/18/17 Recorded Zoster Vaccine Live4 07/28/15 Recorded pneumococcal 23-valent vaccine 05/19/15 Given Tet/diphth/pertussis, acel (oldterm)5 06/14/09 Given Hepatitis A Vaccine (oldterm)6 06/14/09 Given Hepatitis A Adult Vaccine7 12/17/08 Given Influenza Inactive (IM) (oldterm) 12/03/07 Given Pneumococcal Vaccine (oldterm) 01/04/06 Given tetanus-diphtheria toxoids (Td) 11/16/99 Given 1Result Comment: [11/12/2016] [id number] Note: VIS: 09/28/083Admin Note: VIS 08/17/[id number] History: [facility] [id number] Note: VIS: dmin Note: VIS: 08/02/057Admin Note: VIS:08/02/05 Medications acetaminophen 325 mg oral tablet 650 mg, 2, tablet, By Mouth, Every 4 hours, PRN, FOR DISCOMFORT, H/A, TEMP GREATER THAN 101, UNSTEADINESS EXHIBITED BY HEAVY BREATHING, # 120 tablet, Refills 1, Tot. Refills 1, Maintenance, for fever, 08/23/19 7:41:00 EDT, Route to Pharmacy Electro... Start Date: 08/23/19 Status: OrderedAcid Gone 95 mg-358 mg/15 mL oral suspension See Instructions, TAKE 2 TEASPOONFULS BY MOUTH 3 TIMES A DAY AFTER MEALS AND AT BEDTIME / SHAKE WELL, FOR GERD DOSE = 10 ML, # 1,065 mL, 5 Refills, Soft Stop, 04/25/20 7:36:00 EST, [facility], TAKE 2 TEASPOONFULS BY MOUTH 3 TIMES A DAY AFTER MEAL... Start Date: 04/25/20 Status: Orderedbacitracin zinc 500 units/g topical ointment 1 application, Topically, 3 times a day, PRN abrasion, # 454 Gm, 1 Refills, Maintenance, 07/14/20 7:38:00 EDT, Ointment, [facility], Partial fill upon patient request if the prescription is for a schedule II opioid drug., 1 application Topically... Start Date: 07/14/20 Status: OrderedBenefiber oral powder for reconstitution 5 mL, By Mouth, 2 times a day, PRN as needed for constipation, # 155 Gm, 1 Refills, Maintenance, 03/30/20 13:47:00 EST, REC Powder, [facility], 5 mL By Mouth 2 times [...] Hg Dx: I87.2 Venous insufficiency (chronic) (peripheral), 12/09/19 9:10:00 EDT, Compound, Dry Weight Start Date: 12/09/19 Status: Ordereddocusate sodium 100 mg oral capsule 2 capsule, By Mouth, 2 times a day, # 120 capsule, 5 Refills, Maintenance, 05/12/20 10:52:00 EDT, [facility], 163, cm, 01/11/20 8:05:00 EST, Height Start Date: 05/12/20 Status: OrderedDysphagia consultation Dysphagia consultation, See Instructions, # 1 each, Refills 0, Tot. Refills 0, Maintenance, Please evaluate patient for dysphagia including MBSS and esophageal assessment to stomach, 10/24/18 14:57:50 EDT, Compound Start Date: 10/24/18 Status: OrderedGuaiFENesin DM 10 mg-100 mg/5 mL oral liquid See Instructions, 2 teasponn q 6 hour prn, # 120 mL, 0 Refills, Maintenance, 11/18/19 14:25:00 EDT, [facility], 2 teasponn q 6 hour prn, 163, cm, 08/17/19 9:56:00 EDT, Height, 72, kg, 04/13/18 8:58:00 EST, Dry Weight Start Date: 11/18/19 Status: Orderedketoconazole 2% topical cream 1 application, Topically, Daily, # 60 Gm, 0 Refills, Maintenance, 11/12/16 16:09:35, Cream, 1 application Topically Daily Start Date: 11/12/16 Status: Orderedloratadine 10 mg oral tablet 10 mg, 1, tablet, By Mouth, Daily, # 30 tablet, Refills 5, Tot. Refills 5, 07/29/20 11:03:00 EDT, Route to Pharmacy Electronically, [facility], 163, cm, 01/11/20 8:05:00 EST, Height Start Date: 07/29/20 Status: Orderedlubiprostone 24 mcg oral capsule 1 capsule = 24 mcg, By Mouth, 2 times a day, # 60 capsule, 0 Refills, Maintenance, 05/18/15 3:07:13,Capsule Start Date: 05/18/15 Status: OrderedMilk of Magnesia 8% oral suspension 30 mL = 2.4 Gm, By Mouth, Daily at bedtime, # 900 mL, 5 Refills, Maintenance, 03/29/20 9:08:00 EST, [facility], 163, cm, 01/11/20 8:05:00 EST, Height, 72, kg, 04/13/18 8:58:00 EST, Dry Weight Start Date: 03/29/20 Status: OrderedMiscellaneous Rx 8 oz, By Mouth, [...] 1 capfull 2x daily, # 1,054 Gm, 11 Refills, Maintenance, 07/01/20 11:19:00 EDT, [facility], Take 1 capfull 2x daily, 163, cm, 01/11/20 8:05:00 EST, Height Start Date: 07/01/20 Status: Orderedpsyllium 3.4 gm/11 gm oral powder for reconstitution = 3.4 Gm, By Mouth, 2 times a day, PRN as needed for constipation, Reguloid dissolve in 8 oz of fluid, # 390 Gm, 5 Refills, Maintenance, 07/27/19 15:38:00 EDT, REC Powder, [facility], 163, cm, 03/10/19 14:39:00 EST, Height, [...] times a day, SIMETHICONE., # 30 mL, 11 Refills, Acute, 07/25/20 13:38:00 EDT, [facility], 163, cm, 01/11/20 8:05:00 EST, Height Start Date: 07/25/20 Status: OrderedTussin DM 10 mg-100 mg/5 ml [...] Active disorder)(Confirmed) Pica(Confirmed) Active Unsteady gait(Confirmed) Active 1B [id number] 2011 normal, repeat 2021. Diagnosis Diagnosis Type Effective Dates Health Clinical Infor mant Status Service Aspiration Discharge 08/23/20 pneumonia Diagnosis Seizure disorder Discharge 08/23/20 Diagnosis Vital Signs Most recent to oldest [Reference Range]: 1 Height 163 cm (08/23/20 11:31 AM) Blood Pressure [90-138/55-84 mm Hg] 90/60 mm Hg (08/23/20 11:31 AM) Mode of Delivery (Oxygen) Room air (08/23/20 11:31 AM) Blood pressure sites Arm, left (08/23/20 11:31 AM) Social History Social History Type Response Smoking Status Never smoker entered on: 07/22/15 Sex
--- OUTSIDE RECORDS SUMMARY | 2022-01-02 15:13 | XMS_ITS | Continuity of Care Document ---
:1955 Author Organization [facility] Address [address] [place] [address]- Care Team Providers Name Role Phone Tomy Rangel MD Primary Care Physician Encounter [facility] [place] Date(s): 12/05/20 - 01/04/21 [facility] [address] [place] [address]- Allergies, Adverse Reactions, Alerts Substance Reaction Severity Status metoclopramide Active Haldol unknown Active Reglan unknown Active Immunizations Given and Recorded Vaccine Date Status Refusal Reason SARS-CoV-2 (COVID-19) mRNA BNT-162b2 vac 04/11/20 Recorde d SARS-CoV-2 (COVID-19) mRNA BNT-162b2 vac 02/29/20 Recorde d influenza virus vaccine, inactivated 11/27/19 Given influenza [...] toxoids (Td) 11/16/99 Given 1Result Comment: [11/12/2016] [id number] Note: VIS: 09/28/083Admin Note: VIS 08/17/[id number] History: [facility] [id number] Note: VIS: 01/06/086Admin Note: VIS: 08/02/057Admin Note: [...] 10 ML, # 1,065 mL, 5 Refills, [facility], 26, TAKE 2 TEASPOONFULS BY MOUTH 4TIMES A DAY (AFTER MEALS AND AT BEDTIME) / SHAKE... Start Date: 10/17/20 Status: Orderedbacitracin zinc 500 units/g topical ointment 1 application, Topically, 3 times a day, PRN abrasion, # 454 Gm, 1 Refills, Maintenance, 07/14/20 7:38:00 EDT, Ointment, [facility], Partial fill upon patient request if the prescription is for a schedule II opioid drug., 1 application Topically... Start Date: 07/14/20 Status: OrderedBenefiber oral powder for reconstitution 5 mL, By Mouth, 2 times a day, PRN as needed for constipation, # 155 Gm, 1 Refills, Maintenance, 03/30/20 13:47:00 EST, REC Powder, [facility], 5 mL By Mouth 2 times [...] a day, # 120 capsule, 5 Refills, [facility], 163, cm, 10/13/20 9:36:00 EDT, Height Start Date: 10/17/20 Status: Ordereddoxazosin 8 mg oral tablet 1 [...] 07/29/20 11:03:00 EDT, Route to Pharmacy Electronically, [facility], 163, cm, 01/11/20 8:05:00 EST, Height Start Date: 07/29/20 Status: Orderedlubiprostone 24 mcg oral capsule 1 capsule = 24 mcg, By Mouth, 2 times a day, # 60 capsule, 0 Refills, Maintenance, 05/18/15 3:07:13,Capsule Start Date: 05/18/15 Status: OrderedMilk of Magnesia 8% oral suspension 30 mL, By Mouth, Daily at bedtime, FOR CONSTIPATION., # 900 mL, 5 Refills, [facility], 163, cm,10/13/20 9:36:00 EDT, Height Start Date: 10/17/20 Status: OrderedMiscellaneous Rx 8 oz, By Mouth, [...] Gm, 11 Refills, Maintenance, 07/01/20 11:19:00 EDT, [facility], Take 1 capfull 2x daily, 163, cm, 01/11/20 8:05:00 EST, Height Start Date: 07/01/20 Status: Orderedpsyllium 3.4 gm/11 gm oral powder for reconstitution = 3.4 Gm, By Mouth, 2 times a day, PRN as needed for constipation, Reguloid dissolve in 8 oz of fluid, # 390 Gm, 5 Refills, Maintenance, 07/27/19 15:38:00 EDT, REC Powder, [facility], 163, cm, 03/10/19 14:39:00 EST, Height, [...] mL, 11 Refills, Acute, 07/25/20 13:38:00 EDT, [facility], 163, cm, 01/11/20 8:05:00 EST, Height [...] Active disorder)(Confirmed) Pica(Confirmed) Active Unsteady gait(Confirmed) Active [facility] [place] [id number] 2011 normal, repeat 2021. Social History Social History Type Response Smoking Status Never smoker entered on: 07/22/15 Sex Male
--- OUTSIDE RECORDS SUMMARY | 2022-01-02 15:13 | XMS_ITS | Continuity of Care Document ---
:1955 Author Organization [facility] Adult Address [address] [place] [address]- Care Team Providers Name Role Phone Claire TOWNSEND, Tomy Rosales Primary Care Physician [facility]counter [facility] Date(s): 11/27/19 - 12/27/19 [facility] [address] [place] [address]- Allergies, Adverse Reactions, Alerts Substance Reaction Severity [...] toxoids (Td) 11/16/99 Given 1Result Comment: [11/12/2016] [id number] Note: VIS: 09/28/083Admin Note: VIS [id number] History: VIENNA [id number] Note: VIS: 01/06/086Admin Note: VIS: 08/02/057Admin Note: [...] # 1,065 mL, 5 Refills, Soft Stop, 11/27/19 10:25:00 EDT, [facility], TAKE 2 TEASPOONFULS BY MOUTH 3 TIMES A DAY AFTER CHAS... Start Date: 11/27/19 Status: Orderedbacitracin-polymyxin B topical 500 u-71656 u/gm ointment 1 applicator, Topically, 2 times a day, To affected area, # 30 Gm, 11 Refills, Maintenance, 05/20/2015:23:00 EDT, Ointment, [facility], 1 applicator Topically 2 times a day,Instr:To affected area, 163, cm, 03/10/19 14:39:00 EST, Height, 72, kg,... Start Date: 05/20/19 Status: OrderedBenefiber oral powder for reconstitution 5 mL, By Mouth, 2 times a day, PRN as needed for constipation, # 155 Gm, 1 Refills, Maintenance, 12/14/19 15:36:00 EDT, REC Powder, [facility], 5 mL By Mouth 2 times a day,PRN:as needed for constipation, 163, cm, 08/17/19 9:56:00 EDT, Height, 72,... Start Date: 12/14/19 Status: Orderedcitalopram 20 mg oral tablet 3 [...] day, # 120 capsule, 5 Refills, Maintenance, 10/16/19 11:45:00 EDT, [facility], 163, cm, 08/17/19 9:56:00 EDT, Height, 72, kg, 04/13/18 8:58:00 EST, Dry Weight Start Date: 10/16/19 Status: OrderedDysphagia consultation Dysphagia consultation, See Instructions, # 1 each, Refills 0, Tot. Refills 0, Maintenance, Please evaluate patient for dysphagia including MBSS and esophageal assessment to stomach, 10/24/18 14:57:50 EDT, Compound Start Date: 10/24/18 Status: OrderedGuaiFENesin DM 10 mg-100 mg/5 mL oral liquid See Instructions, 2 teasponn q 6 hour prn, # 120 mL, 0 Refills, Maintenance, 11/18/19 14:25:00 EDT, [facility], 2 teasponn q 6 hour prn, 163, cm, 08/17/19 9:56:00 EDT, Height, 72, kg, 04/13/18 8:58:00 EST, Dry Weight Start Date: 11/18/19 Status: Orderedketoconazole 2% topical cream 1 application, Topically, Daily, # 60 Gm, 0 Refills, Maintenance, 11/12/16 16:09:35, Cream, 1 application Topically Daily Start Date: 11/12/16 Status: OrderedLittle Tummys 40 mg/0.6 mL oral liquid 0.6 mL, By Mouth, 3 times a day, SIMETHICONE., # 30 mL, 11 Refills, Acute, 05/27/19 14:04:00 EDT, [facility], 163, cm, 03/10/19 14:39:00 EST, Height, 72, kg, 04/13/18 8:58:00 EST, Dry Weight Start Date: 05/27/19 Status: Orderedloratadine 10 mg oral tablet 10 mg, 1, tablet, By Mouth, Daily, # 30 tablet, Refills 5, Tot. Refills 5, 07/21/19 12:25:00 EDT, Route to Pharmacy Electronically, [facility], 163, cm, 03/10/19 14:39:00 EST, Height, 72, kg, 04/13/18 8:58:00 EST, Dry Weight Start Date: 07/21/19 Status: Orderedlubiprostone 24 mcg oral capsule 1 capsule = 24 mcg, By Mouth, 2 times a day, # 60 capsule, 0 Refills, Maintenance, 05/18/15 3:07:13,Capsule Start Date: 05/18/15 Status: OrderedMilk of Magnesia 8% oral suspension 30 mL = 2.4 Gm, By Mouth, Daily at bedtime, # 900 mL, 5 Refills, Maintenance, 09/25/19 9:36:00 EDT, [facility], 163, cm, 08/17/19 9:56:00 EDT, Height, 72, kg, 04/13/18 8:58:00 EST, Dry Weight Start Date: 09/25/19 Status: OrderedMiscellaneous Rx 8 oz, By Mouth, [...] 1 capfull 2x daily, # 1,054 Gm, 1 Refills, Maintenance, 12/11/19 10:02:00 EDT, [facility], Take 1 capfull 2x daily, 163, cm, 08/17/19 9:56:00 EDT, Height, 72, kg, 04/13/18 8:58:00 EST, Dry Weight Start Date: 12/11/19 Status: Orderedpsyllium 3.4 gm/11 gm oral powder for reconstitution = 3.4 Gm, By Mouth, 2 times a day, PRN as needed for constipation, Reguloid dissolve in 8 oz of fluid, # 390 Gm, 5 Refills, Maintenance, 07/27/19 15:38:00 EDT, REC Powder, [facility], 163, cm, 03/10/19 14:39:00 EST, Height, [...] injected by pharmacy Start Date: 07/29/17 Status: OrderedTussin DM 10 mg-100 mg/5 ml [...] Active History of small bowel Active obstruction(Confirmed)1 H/O colonoscopy(Confirmed)2 Active Hydrocele, left(Confirmed) Active Hypercholesterolemia(Confirmed) Active Hypertension(Confirmed) Active Intention tremor(Confirmed) Active OCD (obsessive compulsive Active disorder)(Confirmed) Pica(Confirmed) Active Unsteady gait(Confirmed) Active [facility] [place] [place] [id number] 2011 normal, repeat 2021. Social History Social History Type Response Smoking Status Never smoker entered on: 07/22/15 Sex
--- OUTSIDE RECORDS SUMMARY | 2022-01-02 15:13 | XMS_ITS | Continuity of Care Document ---
:1955 Author Organization [facility] Address [address] [place] [address]- Care Team Providers Name Role Phone Claire TOWNSEND, Tomy Rosales Primary Care Physician [place] [facility] [place](s): 10/19/21 - 11/30/21 [facility] [address] [place] [address]- Attending Physician: Not on Staff, Attending MD Referring Physician: Tomy Rangel MD Allergies, Adverse [...] toxoids (Td) 11/16/99 Given 1Result Comment: [11/12/2016] [id number] Note: VIS: 09/28/083Admin Note: VIS 08/17/[id number] History: [facility] [id number] Note: VIS: 01/06/086Admin Note: VIS: 08/02/057Admin Note: VIS:08/02/05 Medications acetaminophen 325 mg oral tablet See Instructions, 2 TABS BY MOUTH EVERY 6 HRS FOR DISCOMFORT/PIEDRA/TEMP>101/UNSTEADI- NESS(HEAVY BREATHING)/MAPAP/CALL MD IF GIVING > 7 DAYS/FWXZ=195VT 8 TABS/DAY MAX/SEE ANCILLARY, # 120 tablet, Refills 1, Instructions Replace Required Details, Route to... Start Date: 08/24/21 Status: OrderedAcid Gone 95 mg-358 mg/15 mL oral suspension See Instructions, TAKE 2 TEASPOONFULS BY MOUTH 4 TIMES A DAY (AFTER MEALS AND AT BEDTIME) / SHAKE WELL, FOR GERD DOSE = 10 ML, # 1,065 mL, 5 Refills, [facility], 26, TAKE 2 TEASPOONFULS BY MOUTH 4TIMES A DAY (AFTER MEALS AND AT BEDTIME) / SHAKE... Start Date: 09/18/21 Status: Orderedbacitracin zinc 500 units/g topical ointment See Instructions, APPLY A DIME SIZE AMOUNT TO SUPERFICIAL WOUNDS TWICE DAILY NEEDED ANTIBACTERIAL / CALL MD IF USING LONGER THAN 7 DAYS, # 28.4 Gm, 11 Refills, [facility], 10, APPLY A DIME SIZE AMOUNT TO SUPERFICIAL WOUNDS TWICE DAILY NE... Start Date: 08/18/21 Status: OrderedBenefiber oral powder for reconstitution 5 mL, By Mouth, 2 times a day, PRN as needed for constipation, # 155 Gm, 1 Refills, Maintenance, 03/30/20 13:47:00 EST, REC Powder, [facility], 5 mL By Mouth 2 times [...] mL, 0 Refills, Maintenance, 11/18/19 14:25:00 EDT, [facility], 2 teasponn q 6 hour prn, [...] tablet, Refills 5, Route to Pharmacy Electronically, [facility], 163, cm, 03/28/21 11:55:00 EST, Height Start Date: 08/04/21 Status: Orderedlubiprostone 24 mcg oral capsule 1 capsule = 24 mcg, By Mouth, 2 times a day, # 60 capsule, 0 Refills, Maintenance, 05/18/15 3:07:13,Capsule Start Date: 05/18/15 Status: OrderedMilk of Magnesia 8% oral suspension 30 mL, By Mouth, Daily at bedtime, FOR CONSTIPATION., # 900 mL, 5 Refills, [facility], 163, cm,10/13/20 9:36:00 EDT, Height Start Date: 10/17/20 Status: OrderedMilk of Magnesia 8% oral suspension See Instructions, TAKE 30 ML BY MOUTH DAILY AT BEDTIME FOR CONSTIPATION, # 900 mL, 5 Refills, [facility], 163, cm, 03/28/21 11:55:00 EST, Height Start [...] Gm, 5 Refills, Maintenance, 08/03/21 15:55:00 EDT, [facility], Take 1 capfull 2x daily, 163, cm, 03/28/21 11:55:00 EST, Height Start Date: 08/03/21 Status: Orderedpsyllium 3.4 gm/11 gm oral powder for reconstitution = 3.4 Gm, By Mouth, 2 times a day, PRN as needed for constipation, Reguloid dissolve in 8 oz of fluid, # 390 Gm, 5 Refills, Maintenance, 07/27/19 15:38:00 EDT, REC Powder, [facility], 163, cm, 03/10/19 14:39:00 EST, Height, [...] day, SIMETHICONE., # 30 mL, 10 Refills, [facility], 163, cm, 03/28/21 11:55:00 EST, Height [...] Date: 07/22/15 Status: Ordered Problem List Condition Confirmation Course Effective Status Health Informa nt Dates Status Aspiration pneumonia Confirmed Active Bipolar disorder Confirmed Active Dysphagia Confirmed Active History of small bowel Confirmed Active obstruction1 History of BPH Confirmed Active H/O colonoscopy2 Confirmed Active Hydrocele, left Confirmed Active Hypercholesterolemia Confirmed Active Intention tremor Confirmed Active OCD (obsessive compulsive Confirmed Active disorder) Pica Confirmed Active Unsteady gait Confirmed Active 1B [id number] 2011 normal, repeat 2021. Social History Social History Type Response Smoking Status Never smoker entered on: 07/22/15 Sex Male Patient Care team information PersonnelName: Claire TOWNSEND, Tomy Rosales Address: Address: [address] [place] [id number]
--- OUTSIDE RECORDS SUMMARY | 2022-01-02 15:13 | XMS_ITS | Continuity of Care Document ---
:1955 Author Organization [facility] Address [address] [place] [address]- Care Team Providers Name Role Phone Tomy Rangel MD Primary Care Physician [facility]counter [facility] Date(s): 10/27/19 - 11/26/19 [facility] [address] [place] [address]- [facility] Allergies, Adverse Reactions, Alerts Substance Reaction Severity Status metoclopramide Active Haldol unknown Active Reglan unknown Active Immunizations Given and Recorded Vaccine Date Status Refusal Reason tetanus/diphtheria/pertussis, acel(Tdap) 03/10/19 Given influenza virus vaccine, inactivated 12/19/17 Given influenza virus vaccine, inactivated1 11/12/16 Given influenza virus vaccine, inactivated 12/02/15 Given influenza virus vaccine, inactivated 11/11/14 Given influenza virus vaccine, inactivated2 11/05/08 Given influenza virus vaccine, inactivated 12/12/06 Given influenza virus vaccine, inactivated3 12/24/05 Given zoster vaccine, inactivated 12/19/17 Recorded zoster vaccine, inactivated 09/18/17 Recorded Zoster Vaccine Live4 07/28/15 Recorded pneumococcal 23-valent vaccine 05/19/15 Given Tet/diphth/pertussis, acel (oldterm)5 06/14/09 Given Hepatitis A Vaccine (oldterm)6 06/14/09 Given Hepatitis A Adult Vaccine7 12/17/08 Given Influenza Inactive (IM) (oldterm) 12/03/07 Given Pneumococcal Vaccine (oldterm) 01/04/06 Given tetanus-diphtheria toxoids (Td) 11/16/99 Given 1Result Comment: [11/12/2016] [id number] Note: VIS: 09/28/083Admin Note: VIS 08/17/[id number] History: [facility] [id number] Note: VIS: 01/06/086Admin Note: VIS: 08/02/057Admin Note: [...] # 1,065 mL, 5 Refills, Soft Stop, 05/22/19 13:20:00 EDT, [facility], TAKE 2 TEASPOONFULS BY MOUTH 3 TIMES A DAY AFTER CHAS... Start Date: 05/22/19 Status: Orderedbacitracin-polymyxin B topical 500 u-79455 u/gm ointment 1 applicator, Topically, 2 times a day, To affected area, # 30 Gm, 11 Refills, Maintenance, 05/20/2015:23:00 EDT, Ointment, [facility], 1 applicator Topically 2 times a day,Instr:To affected area, 163, cm, 03/10/19 14:39:00 EST, Height, 72, kg,... Start Date: 05/20/19 Status: OrderedBenefiber oral powder for reconstitution 5 mL, By Mouth, 2 times a day, PRN as needed for constipation, # 155 Gm, 1 Refills, Maintenance, 10/09/19 16:52:00 EDT, REC Powder, [facility], 5 mL By Mouth 2 times a day,PRN:as needed for constipation, 163, cm, 08/17/19 9:56:00 EDT, Height, 72,... Start Date: 10/09/19 Status: Orderedcitalopram 20 mg oral tablet 3 tablets, By Mouth, Daily, # 30 tablet, Refills 0, Maintenance, 05/02/15 8:18:23 Start Date: 05/02/15 Stop Date: 06/01/15 Status: OrderedCompression Stockings See Instructions, # 2 Unknown, Refills 1, Tot. Refills 1, Maintenance, surgical, calf length 20-30 mm Hg Dx: I87.2 Venous insufficiency (chronic) (peripheral), 04/13/19 15:49:00 EST, Compound, Dry Weight Start Date: 04/13/19 Status: Ordereddocusate sodium 100 mg oral capsule 2 capsule, By Mouth, 2 times a day, # 120 capsule, 5 Refills, Maintenance, 10/16/19 11:45:00 EDT, [facility], 163, cm, 08/17/19 9:56:00 EDT, Height, [...] 07/21/19 12:25:00 EDT, Route to Pharmacy Electronically, [facility], 163, cm, 03/10/19 14:39:00 EST, Height, [...] mL, 5 Refills, Maintenance, 09/25/19 9:36:00 EDT, [facility], 163, cm, 08/17/19 9:56:00 EDT, Height, 72, kg, 04/13/18 8:58:00 EST, Dry Weight Start Date: 09/25/19 Status: OrderedNutritional Supplements See Instructions, # 90 [...] 1 capfull 2x daily, # 1,054 Gm, 0 Refills, Maintenance, 11/13/19 10:51:00 EDT, [facility], Take 1 capfull 2x daily, 163, cm, 08/17/19 9:56:00 EDT, Height, 72, kg, 04/13/18 8:58:00 EST, Dry Weight Start Date: 11/13/19 Status: Orderedpsyllium 3.4 gm/11 gm oral powder for reconstitution = 3.4 Gm, By Mouth, 2 times a day, PRN as needed for constipation, Reguloid dissolve in 8 oz of fluid, # 390 Gm, 5 Refills, Maintenance, 07/27/19 15:38:00 EDT, REC Powder, [facility], 163, cm, 03/10/19 14:39:00 EST, Height, [...] disorder)(Confirmed) Pica(Confirmed) Active Unsteady gait(Confirmed) Active 1B [id number] 2011 normal, repeat 2021. Social History Social History Type Response Smoking Status Never smoker entered on: 07/22/15 Sex
--- OUTSIDE RECORDS SUMMARY | 2022-01-02 15:13 | XMS_ITS | Continuity of Care Document ---
:1955 Author Organization [facility] Address [address] [place] [address]- Care Team Providers Name Role Phone Tomy Rangel MD Primary Care Physician [facility] Date[facility]s): 09/23/19 - 10/23/19 [facility] [address] [place] [address]- [facility] Allergies, Adverse Reactions, Alerts Substance Reaction [...] toxoids (Td) 11/16/99 Given 1Result Comment: [11/12/2016] [id number] Note: VIS: 09/28/083Admin Note: VIS 08/17/[id number] History: [facility] [id number] Note: VIS: 01/06/086Admin Note: VIS: 08/02/057Admin Note: [...] 5 Refills, Soft Stop, 05/22/19 13:20:00 EDT, [facility], TAKE 2 TEASPOONFULS BY MOUTH 3 TIMES A DAY AFTER CHAS... Start Date: 05/22/19 Status: Orderedbacitracin-polymyxin B topical 500 u-82514 u/gm ointment 1 applicator, Topically, 2 times a day, To affected area, # 30 Gm, 11 Refills, Maintenance, 05/20/2015:23:00 EDT, Ointment, [facility], 1 applicator Topically 2 times a day,Instr:To affected area, 163, cm, 03/10/19 14:39:00 EST, Height, 72, kg,... Start Date: 05/20/19 Status: OrderedBenefiber oral powder for reconstitution 5 mL, By Mouth, 2 times a day, PRN as needed for constipation, # 155 Gm, 1 Refills, Maintenance, 10/09/19 16:52:00 EDT, REC Powder, [facility], 5 mL By Mouth 2 times [...] capsule, 5 Refills, Maintenance, 10/16/19 11:45:00 EDT, [facility], 163, cm, 08/17/19 9:56:00 EDT, Height, [...] prn, # 120 mL, 0 Refills, Maintenance, 09/02/19 15:56:00 EDT, [facility], 2 teasponn q 6 hour prn, 163, cm, 08/17/19 9:56:00 EDT, Height, 72, kg, 04/13/18 8:58:00 EST, Dry Weight Start Date: 09/02/19 Status: Orderedketoconazole 2% topical cream 1 application, [...] 07/21/19 12:25:00 EDT, Route to Pharmacy Electronically, [facility], 163, cm, 03/10/19 14:39:00 EST, Height, [...] mL, 5 Refills, Maintenance, 09/25/19 9:36:00 EDT, [facility], 163, cm, 08/17/19 9:56:00 EDT, Height, [...] 1 capfull 2x daily, # 1,054 Gm, 3 Refills, Maintenance, 07/10/19 14:37:00 EDT, Dry Weight Start Date: 07/10/19 Status: Orderedpsyllium 3.4 gm/11 gm oral powder for reconstitution = 3.4 Gm, By Mouth, 2 times a day, PRN as needed for constipation, Reguloid dissolve in 8 oz of fluid, # 390 Gm, 5 Refills, Maintenance, 07/27/19 15:38:00 EDT, REC Powder, [facility], 163, cm, 03/10/19 14:39:00 EST, Height, [...] Active disorder)(Confirmed) Pica(Confirmed) Active Unsteady gait(Confirmed) [facility] [id number] 2011 normal, repeat 2021. Social History Social History Type Response Smoking Status Never smoker entered on: 07/22/15 Sex
--- OUTSIDE RECORDS SUMMARY | 2022-01-02 15:13 | XMS_ITS | Continuity of Care Document ---
:1955 Author Organization [facility] Address [address] [place] [address]- Care Team Providers Name Role Phone Claire TOWNSEND, Tomy Rosales Primary Care Physician [facility] Date[facility]s): 03/29/20 - 04/28/20 [facility] [address] [place] [address]- Allergies, Adverse Reactions, Alerts Substance Reaction Severity [...] toxoids (Td) 11/16/99 Given 1Result Comment: [11/12/2016] [id number] Note: VIS: 09/28/083Admin Note: VIS 08/17/[id number] History: [facility] [id number] Note: VIS: 01/06/086Admin Note: VIS: 08/02/057Admin Note: [...] 5 Refills, Soft Stop, 04/25/20 7:36:00 EST, [facility], TAKE 2 TEASPOONFULS BY MOUTH 3 TIMES A DAY AFTER MEAL... Start Date: 04/25/20 Status: Orderedbacitracin-polymyxin B topical 500 u-37578 u/gm ointment 1 applicator, Topically, 2 times a day, To affected area, # 30 Gm, 11 Refills, Maintenance, 05/20/2015:23:00 EDT, Ointment, [facility], 1 applicator Topically 2 times a day,Instr:To affected area, 163, cm, 03/10/19 14:39:00 EST, Height, 72, kg,... Start Date: 05/20/19 Status: OrderedBenefiber oral powder for reconstitution 5 mL, By Mouth, 2 times a day, PRN as needed for constipation, # 155 Gm, 1 Refills, Maintenance, 03/30/20 13:47:00 EST, REC Powder, [facility], 5 mL By Mouth 2 times [...] SIMETHICONE., # 30 mL, 11 Refills, Acute, 01/08/20 11:44:00 EST, [facility], 163, cm, 12/21/19 14:42:00 EST, Height, 72, kg, 04/13/18 8:58:00 EST, Dry Weight Start Date: 01/08/20 Status: Orderedloratadine 10 mg oral tablet 10 mg, 1, tablet, By Mouth, Daily, # 30 tablet, Refills 5, Tot. Refills 5, 01/29/20 9:40:00 EST, Route to Pharmacy Electronically, [facility], 163, cm, 01/11/20 8:05:00 EST, Height, 72, kg, 04/13/18 8:58:00 EST, Dry Weight Start Date: 01/29/20 Status: Orderedlubiprostone 24 mcg oral capsule 1 capsule = 24 mcg, By Mouth, 2 times a day, # 60 capsule, 0 Refills, Maintenance, 05/18/15 3:07:13,Capsule Start Date: 05/18/15 Status: OrderedMilk of Magnesia 8% oral suspension 30 mL = 2.4 Gm, By Mouth, Daily at bedtime, # 900 mL, 5 Refills, Maintenance, 03/29/20 9:08:00 EST, [facility], 163, cm, 01/11/20 8:05:00 EST, Height, [...] daily, # 1,054 Gm, 1 Refills, Maintenance, 04/25/20 7:38:00 EST,[facility], Take 1 capfull 2x daily, 163, cm, 01/11/20 8:05:00 EST, Height Start Date: 04/25/20 Status: Orderedpsyllium 3.4 gm/11 gm oral powder for reconstitution = 3.4 Gm, By Mouth, 2 times a day, PRN as needed for constipation, Reguloid dissolve in 8 oz of fluid, # 390 Gm, 5 Refills, Maintenance, 07/27/19 15:38:00 EDT, REC Powder, [facility], 163, cm, 03/10/19 14:39:00 EST, Height, [...] Active disorder)(Confirmed) Pica(Confirmed) Active Unsteady gait(Confirmed) Active [facility] [id number] 2011 normal, repeat 2021. Social History Social History Type Response Smoking Status Never smoker entered on: 07/22/15 Sex
--- OUTSIDE RECORDS SUMMARY | 2022-01-02 15:13 | XMS_ITS | Continuity of Care Document ---
:[address] [facility] Adult Address [address] [place] [address]- Care Team Providers Name Role Phone Tomy Rangel MD Primary Care Physician [facility]s): 09/02/19 - 10/02/19 [facility] [address] [place] [address]- [facility] Allergies, Adverse Reactions, Alerts Substance Reaction [...] toxoids (Td) 11/16/99 Given 1Result Comment: [11/12/2016] [id number] Note: VIS: 09/28/083Admin Note: VIS 08/17/[id number] History: [facility] [id number] Note: VIS: 01/06/086Admin Note: VIS: 08/02/057Admin Note: [...] 5 Refills, Soft Stop, 05/22/19 13:20:00 EDT, [facility], TAKE 2 TEASPOONFULS BY MOUTH 3 TIMES A DAY AFTER CHAS... Start Date: 05/22/19 Status: Orderedbacitracin-polymyxin B topical 500 u-96032 u/gm ointment 1 applicator, Topically, 2 times a day, To affected area, # 30 Gm, 11 Refills, Maintenance, 05/20/2015:23:00 EDT, Ointment, [facility], 1 applicator Topically 2 times a day,Instr:To affected area, 163, cm, 03/10/19 14:39:00 EST, Height, 72, kg,... Start Date: 05/20/19 Status: Orderedcitalopram 20 mg oral tablet 3 [...] day, # 120 capsule, 5 Refills, Maintenance, 05/20/19 14:13:00 EDT, [facility], 163, cm, 03/10/19 14:39:00 EST, Height, 72, kg, 04/13/18 8:58:00 EST, Dry Weight Start Date: 05/20/19 Status: OrderedDysphagia consultation Dysphagia consultation, See Instructions, # 1 each, Refills 0, Tot. Refills 0, Maintenance, Please evaluate patient for dysphagia including MBSS and esophageal assessment to stomach, 10/24/18 14:57:50 EDT, Compound Start Date: 10/24/18 Status: OrderedGuaiFENesin DM 10 mg-100 mg/5 mL oral liquid See Instructions, 2 teasponn q 6 hour prn, # 120 mL, 0 Refills, Maintenance, 09/02/19 15:56:00 EDT, [facility], 2 teasponn q 6 hour prn, [...] mL, 11 Refills, Acute, 05/27/19 14:04:00 EDT, [facility], 163, cm, 03/10/19 14:39:00 EST, Height, 72, kg, 04/13/18 8:58:00 EST, Dry Weight Start Date: 05/27/19 Status: Orderedloratadine 10 mg oral tablet 10 mg, 1, tablet, By Mouth, Daily, # 30 tablet, Refills 5, Tot. Refills 5, 07/21/19 12:25:00 EDT, Route to Pharmacy Electronically, [facility], 163, cm, 03/10/19 14:39:00 EST, Height, [...] mL, 5 Refills, Maintenance, 09/25/19 9:36:00 EDT, [facility], 163, cm, 08/17/19 9:56:00 EDT, Height, 72, kg, 04/13/18 8:58:00 EST, Dry Weight Start Date: 09/25/19 Status: OrderedNutritional Supplements See Instructions, # 90 each, Refills 11, Tot. Refills 11, Maintenance, Ensure supplement 3 times daily with meals secondary to weight loss., 08/17/19 10:13:00 EDT, [facility], 163, cm, 08/17/19 9:56:00 EDT, Height, 72, kg, 04/13/18 8:58:00 EST, Dry Weight Start Date: 08/17/19 Status: Orderedomeprazole 40 mg oral enteric coated [...] Refills, Maintenance, 07/27/19 15:38:00 EDT, REC Powder, [facility], 163, cm, 03/10/19 14:39:00 EST, Height, [...] Active disorder)(Confirmed) Pica(Confirmed) Active Unsteady gait(Confirmed) [place] [facility] [id number] 2011 normal, repeat 2021. Social History Social History Type Response Smoking Status Never smoker entered on: 07/22/15 Sex
--- OUTSIDE RECORDS SUMMARY | 2022-01-02 15:13 | XMS_ITS | Continuity of Care Document ---
:1955 Author Organization [facility] Address [address] [place] [address]- Care Team Providers Name Role Phone Claire TOWNSEND, Tomy Rosales Primary Care Physician Encounter [facility] Date(s): 10/13/20 - 11/12/20 [facility] [address] [place] [address]- Attending Physician: Hui Cowan Admitting Physician: AdmHui sánchez Referring Physician: AdmtrHui Allergies, Adverse Reactions, Alerts Substance Reaction Severity [...] toxoids (Td) 11/16/99 Given 1Result Comment: [11/12/2016] [id number] Note: VIS: 09/28/083Admin Note: VIS 08/17/[id number] History: [facility] [id number] Note: VIS: 01/06/086Admin Note: VIS: 08/02/057Admin Note: [...] 10 ML, # 1,065 mL, 5 Refills, [facility], 26, TAKE 2 TEASPOONFULS BY MOUTH 4TIMES A DAY (AFTER MEALS AND AT BEDTIME) / SHAKE... Start Date: 10/17/20 Status: Orderedbacitracin zinc 500 units/g topical ointment 1 application, Topically, 3 times a day, PRN abrasion, # 454 Gm, 1 Refills, Maintenance, 07/14/20 7:38:00 EDT, Ointment, [facility], Partial fill upon patient request if the prescription is for a schedule II opioid drug., 1 application Topically... Start Date: 07/14/20 Status: OrderedBenefiber oral powder for reconstitution 5 mL, By Mouth, 2 times a day, PRN as needed for constipation, # 155 Gm, 1 Refills, Maintenance, 03/30/20 13:47:00 EST, REC Powder, [facility], 5 mL By Mouth 2 times [...] 07/29/20 11:03:00 EDT, Route to Pharmacy Electronically, [facility], 163, cm, 01/11/20 8:05:00 EST, Height Start Date: 07/29/20 Status: Orderedlubiprostone 24 mcg oral capsule 1 capsule = 24 mcg, By Mouth, 2 times a day, # 60 capsule, 0 Refills, Maintenance, 05/18/15 3:07:13,Capsule Start Date: 05/18/15 Status: OrderedMilk of Magnesia 8% oral suspension 30 mL, By Mouth, Daily at bedtime, FOR CONSTIPATION., # 900 mL, 5 Refills, [facility], 163, cm,10/13/20 9:36:00 EDT, Height Start [...] Gm, 11 Refills, Maintenance, 07/01/20 11:19:00 EDT, [facility], Take 1 capfull 2x daily, 163, cm, 01/11/20 8:05:00 EST, Height Start Date: 07/01/20 Status: Orderedpsyllium 3.4 gm/11 gm oral powder for reconstitution = 3.4 Gm, By Mouth, 2 times a day, PRN as needed for constipation, Reguloid dissolve in 8 oz of fluid, # 390 Gm, 5 Refills, Maintenance, 07/27/19 15:38:00 EDT, REC Powder, [facility], 163, cm, 03/10/19 14:39:00 EST, Height, [...] mL, 11 Refills, Acute, 07/25/20 13:38:00 EDT, [facility], 163, cm, 01/11/20 8:05:00 EST, Height [...] Active disorder)(Confirmed) Pica(Confirmed) Active Unsteady gait(Confirmed) [place] [facility] [id number] 2011 normal, repeat 2021. Social History Social History Type Response Smoking Status Never smoker entered on: 07/22/15 Sex Male
--- OUTSIDE RECORDS SUMMARY | 2022-01-02 15:14 | XMS_ITS | Continuity of Care Document ---
:1955 Author Organization [facility] Address [address] [place] [address]- Care Team Providers Name Role Phone Tomy Rangel MD Primary Care Physician Encounter [facility] Date(s): 09/13/21 - 09/13/[address] [address] Attending Physician: Tomy Rangel MD Allergies, Adverse Reactions, [...] toxoids (Td) 11/16/99 Given 1Result Comment: [11/12/2016] [id number] Note: VIS: 09/28/083Admin Note: VIS [id number] History: CENTER [id number] Note: VIS: 01/06/086Admin Note: VIS: 08/02/057Admin Note: VIS:08/02/05 Medications acetaminophen 325 mg oral tablet See Instructions, 2 TABS BY MOUTH EVERY 6 HRS FOR DISCOMFORT/PIEDRA/TEMP>101/UNSTEADI- NESS(HEAVY BREATHING)/MAPAP/CALL MD IF GIVING > 7 DAYS/URRH=[id number] 8 TABS/DAY MAX/SEE ANCILLARY, # 120 tablet, Refills 1, Instructions Replace Required Details, Route to... Start Date: 08/24/21 Status: OrderedAcid Gone 95 mg-358 mg/15 mL oral suspension See Instructions, TAKE 2 TEASPOONFULS BY MOUTH 4 TIMES A DAY (AFTER MEALS AND AT BEDTIME) / SHAKE WELL, FOR GERD DOSE = 10 ML, # 1,065 mL, 5 Refills, [facility], 26, TAKE 2 TEASPOONFULS BY MOUTH 4TIMES A DAY (AFTER MEALS AND AT BEDTIME) / SHAKE... Start Date: 03/30/21 Status: Orderedbacitracin zinc 500 units/g topical ointment See Instructions, APPLY A DIME SIZE AMOUNT TO SUPERFICIAL WOUNDS TWICE DAILY NEEDED ANTIBACTERIAL / CALL MD IF USING LONGER THAN 7 DAYS, # 28.4 Gm, 11 Refills, [facility], 10, APPLY A DIME SIZE AMOUNT TO SUPERFICIAL WOUNDS TWICE DAILY NE... Start Date: 08/18/21 Status: OrderedBenefiber oral powder for reconstitution 5 mL, By Mouth, 2 times a day, PRN as needed for constipation, # 155 Gm, 1 Refills, Maintenance, 03/30/20 13:47:00 EST, REC Powder, [facility], 5 mL By Mouth 2 times [...] 200 MG, # 120 capsule, 5 Refills, [facility], 163, cm, 03/28/21 11:55:00 EST, Height [...] tablet, Refills 5, Route to Pharmacy Electronically, [facility], 163, cm, 03/28/21 11:55:00 EST, Height Start Date: 08/04/21 Status: Orderedlubiprostone 24 mcg oral capsule 1 capsule = 24 mcg, By Mouth, 2 times a day, # 60 capsule, 0 Refills, Maintenance, 05/18/15 3:07:13,Capsule Start Date: 05/18/15 Status: OrderedMilk of Magnesia 8% oral suspension 30 mL, By Mouth, Daily at bedtime, FOR CONSTIPATION., # 900 mL, 5 Refills, [facility], 163, cm,10/13/20 9:36:00 EDT, Height Start Date: 10/17/20 Status: OrderedMilk of Magnesia 8% oral suspension See Instructions, TAKE 30 ML BY MOUTH DAILY AT BEDTIME FOR CONSTIPATION, # 900 mL, 5 Refills, [facility], 163, cm, 03/28/21 11:55:00 EST, Height Start [...] Gm, 5 Refills, Maintenance, 08/03/21 15:55:00 EDT, [facility], Take 1 capfull 2x daily, 163, cm, 03/28/21 11:55:00 EST, Height Start Date: 08/03/21 Status: Orderedpsyllium 3.4 gm/11 gm oral powder for reconstitution = 3.4 Gm, By Mouth, 2 times a day, PRN as needed for constipation, Reguloid dissolve in 8 oz of fluid, # 390 Gm, 5 Refills, Maintenance, 07/27/19 15:38:00 EDT, REC Powder, [facility], 163, cm, 03/10/19 14:39:00 EST, Height, [...] day, SIMETHICONE., # 30 mL, 10 Refills, [facility], 163, cm, 03/28/21 11:55:00 EST, Height [...] Active disorder)(Confirmed) Pica(Confirmed) Active Unsteady gait(Confirmed) Active [facility] [id number] 2011 normal, repeat 2021. Social History Social History Type Response Smoking Status Never smoker entered on: 07/22/15 Sex Male
--- OUTSIDE RECORDS SUMMARY | 2022-01-02 15:14 | XMS_ITS | Continuity of Care Document ---
:1955 Author Organization [facility] Address [address] [place] [address]- Care Team Providers Name Role Phone Claire TOWNSEND, Tomy Rosales Primary Care Physician Encounter [facility] Date(s): 03/20/21 - 04/19/21 [facility] [address] [place] [address]- Allergies, Adverse Reactions, Alerts Substance Reaction Severity Status metoclopramide Active Haldol unknown Active Reglan unknown Active Immunizations Given and Recorded Vaccine Date Status Refusal Reason influenza virus vaccine, inactivated 12/27/20 Recorded influenza [...] toxoids (Td) 11/16/99 Given 1Result Comment: [11/12/2016] [id number] Note: VIS: 09/28/083Admin Note: VIS 08/17/[id number] History: [facility]ENTER [id number] Note: VIS: 01/06/086Admin Note: VIS: 08/02/057Admin Note: [...] 10 ML, # 1,065 mL, 5 Refills, [facility], 26, TAKE 2 TEASPOONFULS BY MOUTH 4TIMES A DAY (AFTER MEALS AND AT BEDTIME) / SHAKE... Start Date: 03/30/21 Status: Orderedbacitracin zinc 500 units/g topical ointment 1 application, Topically, 3 times a day, PRN abrasion, # 454 Gm, 1 Refills, Maintenance, 07/14/20 7:38:00 EDT, Ointment, [facility], Partial fill upon patient request if the prescription is for a schedule II opioid drug., 1 application Topically... Start Date: 07/14/20 Status: OrderedBenefiber oral powder for reconstitution 5 mL, By Mouth, 2 times a day, PRN as needed for constipation, # 155 Gm, 1 Refills, Maintenance, 03/30/20 13:47:00 EST, REC Powder, [facility], 5 mL By Mouth 2 times [...] Compound, Dry Weight Start Date: 12/09/19 Status: Ordereddextromethorphan-guaifenesin 5 mg-100 mg/5 mL oral liquid 5 mL, By Mouth, Every 4 hours, # 240 mL, 0 Refills, Acute 05/03/21 11:51:00 EDT, 04/05/21 12:27:00 EST, [facility], Partial fill upon patient request if the prescription is for a schedule II opioid drug., 5 mL By Mouth Every 4 hours, 163, cm, ... Start Date: 04/05/21 Stop Date: 05/03/21 Status: Ordereddocusate sodium 100 mg oral capsule See Instructions, TAKE 2 CAPSULES BY MOUTH TWICE DAILY FOR CONSTIPATION DOSE = 200 MG, # 120 capsule, 5 Refills, [facility], 163, cm, 03/28/21 11:55:00 EST, Height [...] mL, 0 Refills, Maintenance, 11/18/19 14:25:00 EDT, [facility], 2 teasponn q 6 hour prn, 163, cm, 08/17/19 9:56:00 EDT, Height, 72, kg, 04/13/18 8:58:00 EST, Dry Weight Start Date: 11/18/19 Status: Orderedketoconazole 2% topical cream 1 application, Topically, Daily, # 60 Gm, 0 Refills, Maintenance, 11/12/16 16:09:35, Cream, 1 application Topically Daily Start Date: 11/12/16 Status: Orderedloratadine 10 mg oral tablet See Instructions, TAKE 1 TABLET BY MOUTH DAILY IN THE AM FOR ALLERGIES, # 30 tablet, Refills 5, Instructions Replace Required Details, Route to Pharmacy Electronically, [facility], 163, cm, 10/13/20 9:36:00 EDT, Height Start Date: 02/02/21 Status: Orderedlubiprostone 24 mcg oral capsule 1 capsule = 24 mcg, By Mouth, 2 times a day, # 60 capsule, 0 Refills, Maintenance, 05/18/15 3:07:13,Capsule Start Date: 05/18/15 Status: OrderedMilk of Magnesia 8% oral suspension 30 mL, By Mouth, Daily at bedtime, FOR CONSTIPATION., # 900 mL, 5 Refills, [facility], 163, cm,10/13/20 9:36:00 EDT, Height Start [...] Refills, Maintenance, 07/27/19 15:38:00 EDT, REC Powder, [facility], 163, cm, 03/10/19 14:39:00 EST, Height, [...] day, SIMETHICONE., # 30 mL, 10 Refills, [facility], 163, cm, 10/13/20 9:36:00 EDT, Height Start Date: 02/21/21 Status: OrderedTussin DM 10 mg-100 mg/5 ml [...] disorder)(Confirmed) Pica(Confirmed) Active Unsteady gait(Confirmed) Active [facility] [id number] 2011 normal, repeat 2021. Social History Social History Type Response Smoking Status Never smoker entered on: 07/22/15 Sex Male
--- OUTSIDE RECORDS SUMMARY | 2022-01-02 15:14 | XMS_ITS | Continuity of Care Document ---
:1955 Author Organization [facility] Address [address] [place] [address]- Care Team Providers Name Role Phone Tomy Rangel MD Primary Care Physician Encounter [facility] Date(s): 08/17/19 - 08/24/19 [facility] [address] [place] [address]- [facility] Encounter Diagnosis Aspiration pneumonia (Discharge Diagnosis) - 08/17/19 Bipolar disorder (Discharge Diagnosis) - 08/17/19 Seizure disorder (Discharge Diagnosis) - 08/17/19 Hepatitis B carrier (Discharge Diagnosis) - 08/17/19 Hypercholesterolemia (Discharge Diagnosis) - 08/17/19 Hypertension (Discharge Diagnosis) - 08/17/19 Mental retardation (Discharge Diagnosis) - 08/17/19 Unsteady gait (Discharge Diagnosis) - 08/17/19 Attending Physician: Tomy Rangel MD Allergies, Adverse [...] 23-valent vaccine 05/19/15 Given Tet/diphth/pertussis, acel (oldterm)5 4/27/10 Given Hepatitis A Vaccine (oldterm)6 06/14/09 Given Hepatitis A Adult Vaccine7 12/17/08 Given Influenza Inactive (IM) (oldterm) 12/03/07 Given Pneumococcal Vaccine (oldterm) 01/04/06 Given tetanus-diphtheria toxoids (Td) 11/16/99 Given 1Result Comment: [11/12/2016] [id number] Note: VIS: 09/28/083Admin Note: VIS [id number] History: [facility]ENTER [id number] Note: VIS: 01/06/086Admin Note: VIS: 08/02/057Admin Note: [...] 5 Refills, Soft Stop, 05/22/19 13:20:00 EDT, [facility], TAKE 2 TEASPOONFULS BY MOUTH 3 TIMES A DAY AFTER CHAS... Start Date: 05/22/19 Status: Orderedbacitracin-polymyxin B topical 500 u-40321 u/gm ointment 1 applicator, Topically, 2 times a day, To affected area, # 30 Gm, 11 Refills, Maintenance, 05/20/2015:23:00 EDT, Ointment, [facility], 1 applicator Topically 2 times a [...] capsule, 5 Refills, Maintenance, 05/20/19 14:13:00 EDT, [facility], 163, cm, 03/10/19 14:39:00 EST, Height, 72, kg, 04/13/18 8:58:00 EST, Dry Weight Start Date: 05/20/19 Status: OrderedDysphagia consultation Dysphagia consultation, See Instructions, # 1 each, Refills 0, Tot. Refills 0, Maintenance, Please evaluate patient for dysphagia including MBSS and esophageal assessment to stomach, 10/24/18 14:57:50 EDT, Compound Start Date: 10/24/18 Status: Orderedketoconazole 2% topical cream 1 application, Topically, Daily, # 60 Gm, 0 Refills, Maintenance, 11/12/16 16:09:35, Cream, 1 application Topically Daily Start Date: 11/12/16 Status: OrderedLittle Tummys 40 mg/0.6 mL oral liquid 0.6 mL, By Mouth, 3 times a day, SIMETHICONE., # 30 mL, 11 Refills, Acute, 05/27/19 14:04:00 EDT, [facility], 163, cm, 03/10/19 14:39:00 EST, Height, 72, kg, 04/13/18 8:58:00 EST, Dry Weight Start Date: 05/27/19 Status: Orderedloratadine 10 mg oral tablet 10 mg, 1, tablet, By Mouth, Daily, # 30 tablet, Refills 5, Tot. Refills 5, 07/21/19 12:25:00 EDT, Route to Pharmacy Electronically, [facility], 163, cm, 03/10/19 14:39:00 EST, Height, [...] bedtime, # 900 mL, 5 Refills, Maintenance, 03/13/19 8:18:00 EST, [facility], 163, cm, 03/10/19 14:39:00 EST, Height, 72, kg, 04/13/18 8:58:00 EST, Dry Weight Start Date: 03/13/19 Status: OrderedNutritional Supplements See Instructions, # 90 [...] Active disorder)(Confirmed) Pica(Confirmed) Active Unsteady gait(Confirmed) Active [facility] [id number] 2011 normal, repeat 2021. Diagnosis Diagnosis Type Effective Dates Health Clinical Infor mant Status Service Aspiration pneumonia Discharge 08/17/19 Diagnosis Bipolar disorder Discharge 08/17/19 Diagnosis Seizure disorder Discharge 08/17/19 Diagnosis Hepatitis B carrier Discharge 08/17/19 Diagnosis Hypercholesterolemia Discharge 08/17/19 Diagnosis Hypertension Discharge 08/17/19 Diagnosis Mental retardation Discharge 08/17/19 Diagnosis Unsteady gait Discharge 6/29/20 Diagnosis Vital Signs Most recent to oldest [Reference Range]: 1 Height 163 cm (08/17/19 9:56 AM) Blood Pressure [90-138/55-84 mm Hg] 90/58 mm Hg (08/17/19 9:56 AM) Respiratory Rate [16-30 br/min] 12 br/min *L* (08/17/19 9:56 AM) Blood pressure sites Arm, left (08/17/19 9:56 AM) Social History Social History Type Response Smoking Status Never smoker entered on: 07/22/15 Sex
--- OUTSIDE RECORDS SUMMARY | 2022-01-02 15:14 | XMS_ITS | Continuity of Care Document ---
:1955 Author Organization [facility] Address [address] [place] [address]- Care Team Providers Name Role Phone Claire TOWNSEND, Tomy Rosales Primary Care Physician Encounter [facility] Date(s): 04/13/21 - 05/13/21 [facility] [address] [place] [address]- Allergies, Adverse Reactions, Alerts Substance Reaction Severity [...] toxoids (Td) 11/16/99 Given 1Result Comment: [11/12/2016] [id number] Note: VIS: 09/28/083Admin Note: VIS 08/17/[id number] History: CENTER [id number] Note: VIS: 01/06/086Admin Note: VIS: 08/02/057Admin Note: [...] 10 ML, # 1,065 mL, 5 Refills, [facility], 26, TAKE 2 TEASPOONFULS BY MOUTH 4TIMES A DAY (AFTER MEALS AND AT BEDTIME) / SHAKE... Start Date: 03/30/21 Status: Orderedbacitracin zinc 500 units/g topical ointment 1 application, Topically, 3 times a day, PRN abrasion, # 454 Gm, 1 Refills, Maintenance, 07/14/20 7:38:00 EDT, Ointment, [facility], Partial fill upon patient request if the prescription is for a schedule II opioid drug., 1 application Topically... Start Date: 07/14/20 Status: OrderedBenefiber oral powder for reconstitution 5 mL, By Mouth, 2 times a day, PRN as needed for constipation, # 155 Gm, 1 Refills, Maintenance, 03/30/20 13:47:00 EST, REC Powder, [facility], 5 mL By Mouth 2 times [...] 200 MG, # 120 capsule, 5 Refills, [facility], 163, cm, 03/28/21 11:55:00 EST, Height [...] Replace Required Details, Route to Pharmacy Electronically, [facility], 163, cm, 10/13/20 9:36:00 EDT, Height Start Date: 02/02/21 Status: Orderedlubiprostone 24 mcg oral capsule 1 capsule = 24 mcg, By Mouth, 2 times a day, # 60 capsule, 0 Refills, Maintenance, 05/18/15 3:07:13,Capsule Start Date: 05/18/15 Status: OrderedMilk of Magnesia 8% oral suspension 30 mL, By Mouth, Daily at bedtime, FOR CONSTIPATION., # 900 mL, 5 Refills, [facility], 163, cm,10/13/20 9:36:00 EDT, Height Start [...] Gm, 11 Refills, Maintenance, 07/01/20 11:19:00 EDT, [facility], Take 1 capfull 2x daily, 163, cm, 01/11/20 8:05:00 EST, Height Start Date: 07/01/20 Status: Orderedpsyllium 3.4 gm/11 gm oral powder for reconstitution = 3.4 Gm, By Mouth, 2 times a day, PRN as needed for constipation, Reguloid dissolve in 8 oz of fluid, # 390 Gm, 5 Refills, Maintenance, 07/27/19 15:38:00 EDT, REC Powder, [facility], 163, cm, 03/10/19 14:39:00 EST, Height, [...] day, SIMETHICONE., # 30 mL, 10 Refills, [facility], 163, cm, 10/13/20 9:36:00 EDT, Height [...] disorder)(Confirmed) Pica(Confirmed) Active Unsteady gait(Confirmed) Active [facility] [id number] 2011 normal, repeat 2021. Social History Social History Type Response Smoking Status Never smoker entered on: 07/22/15 Sex Male
--- OUTSIDE RECORDS SUMMARY | 2022-01-02 15:14 | XMS_ITS | Continuity of Care Document ---
:1955 Author Organization [facility] Address [address] [place] [address]- Care Team Providers Name Role Phone Claire TOWNSEND, Tomy Rosales Primary Care Physician [facility]counter [facility] Date(s): 09/15/21 - 10/15/21 [facility] [address] [place] [address]- Allergies, Adverse Reactions, Alerts Substance Reaction Severity [...] toxoids (Td) 11/16/99 Given 1Result Comment: [11/12/2016] [id number] Note: VIS: 09/28/083Admin Note: VIS 08/17/[id number] History: CENTER [id number] Note: VIS: 01/06/086Admin Note: VIS: 08/02/057Admin Note: VIS:08/02/05 Medications acetaminophen 325 mg oral tablet See Instructions, 2 TABS BY MOUTH EVERY 6 HRS FOR DISCOMFORT/PIEDRA/TEMP>101/UNSTEADI- NESS(HEAVY BREATHING)/MAPAP/CALL MD IF GIVING > 7 DAYS/[id number]=[id number] 8 TABS/DAY MAX/SEE ANCILLARY, # 120 tablet, Refills 1, Instructions Replace Required Details, Route to... Start Date: 08/24/21 Status: OrderedAcid Gone 95 mg-358 mg/15 mL oral suspension See Instructions, TAKE 2 TEASPOONFULS BY MOUTH 4 TIMES A DAY (AFTER MEALS AND AT BEDTIME) / SHAKE WELL, FOR GERD DOSE = 10 ML, # 1,065 mL, 5 Refills, [facility], 26, TAKE 2 TEASPOONFULS BY MOUTH 4TIMES A DAY (AFTER MEALS AND AT BEDTIME) / SHAKE... Start Date: 09/18/21 Status: Orderedbacitracin zinc 500 units/g topical ointment See Instructions, APPLY A DIME SIZE AMOUNT TO SUPERFICIAL WOUNDS TWICE DAILY NEEDED ANTIBACTERIAL / CALL MD IF USING LONGER THAN 7 DAYS, # 28.4 Gm, 11 Refills, [facility], 10, APPLY A DIME SIZE AMOUNT TO SUPERFICIAL WOUNDS TWICE DAILY NE... Start Date: 08/18/21 Status: OrderedBenefiber oral powder for reconstitution 5 mL, By Mouth, 2 times a day, PRN as needed for constipation, # 155 Gm, 1 Refills, Maintenance, 03/30/20 13:47:00 EST, REC Powder, [facility], 5 mL By Mouth 2 times [...] mL, 0 Refills, Maintenance, 11/18/19 14:25:00 EDT, [facility], 2 teasponn q 6 hour prn, [...] tablet, Refills 5, Route to Pharmacy Electronically, [facility], 163, cm, 03/28/21 11:55:00 EST, Height Start Date: 08/04/21 Status: Orderedlubiprostone 24 mcg oral capsule 1 capsule = 24 mcg, By Mouth, 2 times a day, # 60 capsule, 0 Refills, Maintenance, 05/18/15 3:07:13,Capsule Start Date: 05/18/15 Status: OrderedMilk of Magnesia 8% oral suspension 30 mL, By Mouth, Daily at bedtime, FOR CONSTIPATION., # 900 mL, 5 Refills, [facility], 163, cm,10/13/20 9:36:00 EDT, Height Start Date: 10/17/20 Status: OrderedMilk of Magnesia 8% oral suspension See Instructions, TAKE 30 ML BY MOUTH DAILY AT BEDTIME FOR CONSTIPATION, # 900 mL, 5 Refills, [facility], 163, cm, 03/28/21 11:55:00 EST, Height Start [...] Gm, 5 Refills, Maintenance, 08/03/21 15:55:00 EDT, [facility], Take 1 capfull 2x daily, 163, cm, 03/28/21 11:55:00 EST, Height Start Date: 08/03/21 Status: Orderedpsyllium 3.4 gm/11 gm oral powder for reconstitution = 3.4 Gm, By Mouth, 2 times a day, PRN as needed for constipation, Reguloid dissolve in 8 oz of fluid, # 390 Gm, 5 Refills, Maintenance, 07/27/19 15:38:00 EDT, REC Powder, [facility], 163, cm, 03/10/19 14:39:00 EST, Height, [...] day, SIMETHICONE., # 30 mL, 10 Refills, [facility], 163, cm, 03/28/21 11:55:00 EST, Height [...] Active disorder)(Confirmed) Pica(Confirmed) Active Unsteady gait(Confirmed) [place] [facility] [place] [id number] 2011 normal, repeat 2021. Social History Social History Type Response Smoking Status Never smoker entered on: 07/22/15 Sex Male Care Team PersonnelName: Claire TOWNSEND, Tomy Rosales Address: [address] [place] [id number]
--- OUTSIDE RECORDS SUMMARY | 2022-01-02 15:14 | XMS_ITS | Continuity of Care Document ---
:1955 Author Organization [facility] Adult Address [address] [place] [address]- Care Team Providers Name Role Phone Claire TOWNSEND, Tomy Rosales Primary Care Physician [facility] Date(s): 06/09/21 - 07/09/21 [facility] [address] [place] [address]- Allergies, Adverse Reactions, Alerts Substance Reaction Severity [...] toxoids (Td) 11/16/99 Given 1Result Comment: [11/12/2016] [id number] Note: VIS: 09/28/083Admin Note: VIS 08/17/[id number] History: CENTER [id number] Note: VIS: 01/06/086Admin Note: VIS: 08/02/057Admin Note: [...] 10 ML, # 1,065 mL, 5 Refills, [facility], 26, TAKE 2 TEASPOONFULS BY MOUTH 4TIMES A DAY (AFTER MEALS AND AT BEDTIME) / SHAKE... Start Date: 03/30/21 Status: Orderedbacitracin zinc 500 units/g topical ointment 1 application, Topically, 3 times a day, PRN abrasion, # 454 Gm, 1 Refills, Maintenance, 07/14/20 7:38:00 EDT, Ointment, [facility], Partial fill upon patient request if the prescription is for a schedule II opioid drug., 1 application Topically... Start Date: 07/14/20 Status: OrderedBenefiber oral powder for reconstitution 5 mL, By Mouth, 2 times a day, PRN as needed for constipation, # 155 Gm, 1 Refills, Maintenance, 03/30/20 13:47:00 EST, REC Powder, [facility], 5 mL By Mouth 2 times [...] 200 MG, # 120 capsule, 5 Refills, [facility], 163, cm, 03/28/21 11:55:00 EST, Height [...] Replace Required Details, Route to Pharmacy Electronically, [facility], 163, cm, 10/13/20 9:36:00 EDT, Height Start Date: 02/02/21 Status: Orderedlubiprostone 24 mcg oral capsule 1 capsule = 24 mcg, By Mouth, 2 times a day, # 60 capsule, 0 Refills, Maintenance, 05/18/15 3:07:13,Capsule Start Date: 05/18/15 Status: OrderedMilk of Magnesia 8% oral suspension 30 mL, By Mouth, Daily at bedtime, FOR CONSTIPATION., # 900 mL, 5 Refills, [facility], 163, cm,10/13/20 9:36:00 EDT, Height Start Date: 10/17/20 Status: OrderedMilk of Magnesia 8% oral suspension See Instructions, TAKE 30 ML BY MOUTH DAILY AT BEDTIME FOR CONSTIPATION, # 900 mL, 5 Refills, [facility], 163, cm, 03/28/21 11:55:00 EST, Height Start [...] Gm, 11 Refills, Maintenance, 07/01/20 11:19:00 EDT, [facility], Take 1 capfull 2x daily, 163, cm, 01/11/20 8:05:00 EST, Height Start Date: 07/01/20 Status: Orderedpsyllium 3.4 gm/11 gm oral powder for reconstitution = 3.4 Gm, By Mouth, 2 times a day, PRN as needed for constipation, Reguloid dissolve in 8 oz of fluid, # 390 Gm, 5 Refills, Maintenance, 07/27/19 15:38:00 EDT, REC Powder, [facility], 163, cm, 03/10/19 14:39:00 EST, Height, [...] day, SIMETHICONE., # 30 mL, 10 Refills, [facility], 163, cm, 10/13/20 9:36:00 EDT, Height [...] Active disorder)(Confirmed) Pica(Confirmed) Active Unsteady gait(Confirmed) Active [facility] [id number] 2011 normal, repeat 2021. Social History Social History Type Response Smoking Status Never smoker entered on: 07/22/15 Sex Male
--- OUTSIDE RECORDS SUMMARY | 2022-01-02 15:14 | XMS_ITS | Continuity of Care Document ---
:1955 Author Organization [facility] Adult Address [address] [place] [address]- Care Team Providers Name Role Phone Claire TOWNSEND, Tomy Rosales Primary Care Physician Encounter [facility] Date(s): 03/28/21 - 04/27/21 [facility] [address] [place] [address]- Attending Physician: Admtr, Ar8 Admitting Physician: Admtr, Ar8 Referring Physician: Admtr, Ar8 Allergies, Adverse Reactions, Alerts Substance Reaction Severity [...] toxoids (Td) 11/16/99 Given 1Result Comment: [11/12/2016] [id number] Note: VIS: 09/28/083Admin Note: VIS 08/17/[id number] History: CENTER [id number] Note: VIS: 01/06/086Admin Note: VIS: 08/02/057Admin Note: [...] 10 ML, # 1,065 mL, 5 Refills, [facility], 26, TAKE 2 TEASPOONFULS BY MOUTH 4TIMES A DAY (AFTER MEALS AND AT BEDTIME) / SHAKE... Start Date: 03/30/21 Status: Orderedbacitracin zinc 500 units/g topical ointment 1 application, Topically, 3 times a day, PRN abrasion, # 454 Gm, 1 Refills, Maintenance, 07/14/20 7:38:00 EDT, Ointment, [facility], Partial fill upon patient request if the prescription is for a schedule II opioid drug., 1 application Topically... Start Date: 07/14/20 Status: OrderedBenefiber oral powder for reconstitution 5 mL, By Mouth, 2 times a day, PRN as needed for constipation, # 155 Gm, 1 Refills, Maintenance, 03/30/20 13:47:00 EST, REC Powder, [facility], 5 mL By Mouth 2 times [...] Acute 05/03/21 11:51:00 EDT, 04/05/21 12:27:00 EST, [facility], Partial fill upon patient request if the prescription is for a schedule II opioid drug., 5 mL By Mouth Every 4 hours, 163, cm, 02/... Start Date: 04/05/21 Stop Date: 05/03/21 Status: Ordereddocusate sodium 100 mg oral capsule See Instructions, TAKE 2 CAPSULES BY MOUTH TWICE DAILY FOR CONSTIPATION DOSE = 200 MG, # 120 capsule, 5 Refills, [facility], 163, cm, 03/28/21 11:55:00 EST, Height [...] mL, 0 Refills, Maintenance, 11/18/19 14:25:00 EDT, [facility], 2 teasponn q 6 hour prn, [...] Replace Required Details, Route to Pharmacy Electronically, [facility], 163, cm, 10/13/20 9:36:00 EDT, Height Start Date: 02/02/21 Status: Orderedlubiprostone 24 mcg oral capsule 1 capsule = 24 mcg, By Mouth, 2 times a day, # 60 capsule, 0 Refills, Maintenance, 05/18/15 3:07:13,Capsule Start Date: 05/18/15 Status: OrderedMilk of Magnesia 8% oral suspension 30 mL, By Mouth, Daily at bedtime, FOR CONSTIPATION., # 900 mL, 5 Refills, [facility], 163, cm,10/13/20 9:36:00 EDT, Height Start [...] Refills, Maintenance, 07/27/19 15:38:00 EDT, REC Powder, [facility], 163, cm, 03/10/19 14:39:00 EST, Height, [...] day, SIMETHICONE., # 30 mL, 10 Refills, [facility], 163, cm, 10/13/20 9:36:00 EDT, Height [...] gait(Confirmed) [place] [facility] [id number] 2011 normal, repeat 2021. Social History Social History Type Response Smoking Status Never smoker entered on: 07/22/15 Sex Male
--- OUTSIDE RECORDS SUMMARY | 2022-01-02 15:14 | XMS_ITS | Continuity of Care Document ---
:1955 Author Organization [facility] Adult Address [address] [place] [address]- Care Team Providers Name Role Phone Tomy Rangel MD Primary Care Physician [facility] Date[facility]s): 08/26/20 - 09/25/20 [facility] [address] [place] [address]- Allergies, Adverse Reactions, Alerts Substance Reaction Severity [...] toxoids (Td) 11/16/99 Given 1Result Comment: [11/12/2016] [id number] Note: VIS: 09/28/083Admin Note: VIS 08/17/[id number] History: CENTER [id number] Note: VIS: 01/06/086Admin Note: VIS: 08/02/057Admin Note: [...] 5 Refills, Soft Stop, 04/25/20 7:36:00 EST, [facility], TAKE 2 TEASPOONFULS BY MOUTH 3 TIMES A DAY AFTER MEAL... Start Date: 04/25/20 Status: Orderedbacitracin zinc 500 units/g topical ointment 1 application, Topically, 3 times a day, PRN abrasion, # 454 Gm, 1 Refills, Maintenance, 07/14/20 7:38:00 EDT, Ointment, [facility], Partial fill upon patient request if the prescription is for a schedule II opioid drug., 1 application Topically... Start Date: 07/14/20 Status: OrderedBenefiber oral powder for reconstitution 5 mL, By Mouth, 2 times a day, PRN as needed for constipation, # 155 Gm, 1 Refills, Maintenance, 03/30/20 13:47:00 EST, REC Powder, [facility], 5 mL By Mouth 2 times [...] capsule, 5 Refills, Maintenance, 05/12/20 10:52:00 EDT, [facility], 163, cm, 01/11/20 8:05:00 EST, Height [...] mL, 0 Refills, Maintenance, 11/18/19 14:25:00 EDT, [facility], 2 teasponn q 6 hour prn, [...] 07/29/20 11:03:00 EDT, Route to Pharmacy Electronically, [facility], 163, cm, 01/11/20 8:05:00 EST, Height [...] Refills, Maintenance, 07/27/19 15:38:00 EDT, REC Powder, [facility], 163, cm, 03/10/19 14:39:00 EST, Height, [...] mL, 11 Refills, Acute, 07/25/20 13:38:00 EDT, [facility], 163, cm, 01/11/20 8:05:00 EST, Height [...] disorder)(Confirmed) Pica(Confirmed) Active Unsteady gait(Confirmed) Active [facility] [id number] 2011 normal, repeat 2021. Social History Social History Type Response Smoking Status Never smoker entered on: 07/22/15 Sex
--- OUTSIDE RECORDS SUMMARY | 2022-01-02 15:14 | XMS_ITS | Continuity of Care Document ---
:1955 Author Organization [facility] Adult Address [address] [place] [address]- Care Team Providers Name Role Phone Claire TOWNSEND, Tomy Rosales Primary Care Physician Encounter [facility] Date(s): 07/11/21 - 08/10/21 [facility] [address] [place] [address]- Attending Physician: Admtr, [id number] Admitting Physician: Admtr, Ar8 Referring Physician: Admtr, [...] toxoids (Td) 11/16/99 Given 1Result Comment: [11/12/2016] [id number] Note: VIS: 09/28/083Admin Note: VIS 08/17/[id number] History: CENTER [id number] Note: VIS: 01/06/086Admin Note: VIS: 08/02/057Admin Note: [...] 10 ML, # 1,065 mL, 5 Refills, [facility], 26, TAKE 2 TEASPOONFULS BY MOUTH 4TIMES A DAY (AFTER MEALS AND AT BEDTIME) / SHAKE... Start Date: 03/30/21 Status: Orderedbacitracin zinc 500 units/g topical ointment 1 application, Topically, 3 times a day, PRN abrasion, # 454 Gm, 1 Refills, Maintenance, 07/14/20 7:38:00 EDT, Ointment, [facility], Partial fill upon patient request if the prescription is for a schedule II opioid drug., 1 application Topically... Start Date: 07/14/20 Status: OrderedBenefiber oral powder for reconstitution 5 mL, By Mouth, 2 times a day, PRN as needed for constipation, # 155 Gm, 1 Refills, Maintenance, 03/30/20 13:47:00 EST, REC Powder, [facility], 5 mL By Mouth 2 times [...] 200 MG, # 120 capsule, 5 Refills, [facility], 163, cm, 03/28/21 11:55:00 EST, Height [...] mL, 0 Refills, Maintenance, 11/18/19 14:25:00 EDT, [facility], 2 teasponn q 6 hour prn, [...] tablet, Refills 5, Route to Pharmacy Electronically, [facility], 163, cm, 03/28/21 11:55:00 EST, Height Start Date: 08/04/21 Status: Orderedlubiprostone 24 mcg oral capsule 1 capsule = 24 mcg, By Mouth, 2 times a day, # 60 capsule, 0 Refills, Maintenance, 05/18/15 3:07:13,Capsule Start Date: 05/18/15 Status: OrderedMilk of Magnesia 8% oral suspension 30 mL, By Mouth, Daily at bedtime, FOR CONSTIPATION., # 900 mL, 5 Refills, [facility], 163, cm,10/13/20 9:36:00 EDT, Height Start Date: 10/17/20 Status: OrderedMilk of Magnesia 8% oral suspension See Instructions, TAKE 30 ML BY MOUTH DAILY AT BEDTIME FOR CONSTIPATION, # 900 mL, 5 Refills, [facility], 163, cm, 03/28/21 11:55:00 EST, Height Start [...] Refills, Maintenance, 07/27/19 15:38:00 EDT, REC Powder, [facility], 163, cm, 03/10/19 14:39:00 EST, Height, [...] day, SIMETHICONE., # 30 mL, 10 Refills, [facility], 163, cm, 10/13/20 9:36:00 EDT, Height [...] Active disorder)(Confirmed) Pica(Confirmed) Active Unsteady gait(Confirmed) Active [facility] [id number] 2011 normal, repeat 2021. Social History Social History Type Response Smoking Status Never smoker entered on: 07/22/15 Sex Male
--- OUTSIDE RECORDS SUMMARY | 2022-01-02 15:14 | XMS_ITS | Continuity of Care Document ---
:1955 Author Organization [facility] Adult Address [address] [place] [address]- Care Team Providers Name Role Phone Tomy Rangel MD Primary Care Physician [facility] Date[facility]s): 08/18/19 - 09/17/19 [facility] [address] [place] [address]- [facility] Allergies, Adverse Reactions, Alerts Substance Reaction Severity [...] toxoids (Td) 11/16/99 Given 1Result Comment: [11/12/2016] [id number] Note: VIS: 09/28/083Admin Note: VIS 08/17/[id number] History: CENTER [id number] Note: VIS: 01/06/086Admin Note: VIS: 08/02/057Admin Note: [...] 5 Refills, Soft Stop, 05/22/19 13:20:00 EDT, [facility], TAKE 2 TEASPOONFULS BY MOUTH 3 TIMES A DAY AFTER CHAS... Start Date: 05/22/19 Status: Orderedbacitracin-polymyxin B topical 500 u-77841 u/gm ointment 1 applicator, Topically, 2 times a day, To affected area, # 30 Gm, 11 Refills, Maintenance, 05/20/2015:23:00 EDT, Ointment, [facility], 1 applicator Topically 2 times a [...] capsule, 5 Refills, Maintenance, 05/20/19 14:13:00 EDT, [facility], 163, cm, 03/10/19 14:39:00 EST, Height, [...] mL, 0 Refills, Maintenance, 09/02/19 15:56:00 EDT, [facility], 2 teasponn q 6 hour prn, [...] mL, 11 Refills, Acute, 05/27/19 14:04:00 EDT, [facility], 163, cm, 03/10/19 14:39:00 EST, Height, 72, kg, 04/13/18 8:58:00 EST, Dry Weight Start Date: 05/27/19 Status: Orderedloratadine 10 mg oral tablet 10 mg, 1, tablet, By Mouth, Daily, # 30 tablet, Refills 5, Tot. Refills 5, 07/21/19 12:25:00 EDT, Route to Pharmacy Electronically, [facility], 163, cm, 03/10/19 14:39:00 EST, Height, [...] Active disorder)(Confirmed) Pica(Confirmed) Active Unsteady gait(Confirmed) Active [facility] [id number] 2011 normal, repeat 2021. Social History Social History Type Response Smoking Status Never smoker entered on: 07/22/15 Sex
--- OUTSIDE RECORDS SUMMARY | 2022-01-02 15:14 | XMS_ITS | Continuity of Care Document ---
:1955 Author Organization [facility] Address [address] [address]- Care Team Providers Name Role Phone Tomy Rangel MD Primary Care Physician [facility] Date[facility]s): 10/05/19 - 11/04/19 [facility] [address] [place] [address]- [facility] Allergies, Adverse Reactions, Alerts Substance Reaction Severity [...] toxoids (Td) 11/16/99 Given 1Result Comment: [11/12/2016] [id number] Note: VIS: 09/28/083Admin Note: VIS 08/17/[id number] History: CENTER [id number] Note: VIS: 01/06/086Admin Note: VIS: 08/02/057Admin Note: [...] 5 Refills, Soft Stop, 05/22/19 13:20:00 EDT, [facility], TAKE 2 TEASPOONFULS BY MOUTH 3 TIMES A DAY AFTER CHAS... Start Date: 05/22/19 Status: Orderedbacitracin-polymyxin B topical 500 u-24310 u/gm ointment 1 applicator, Topically, 2 times a day, To affected area, # 30 Gm, 11 Refills, Maintenance, 05/20/2015:23:00 EDT, Ointment, [facility], 1 applicator Topically 2 times a day,Instr:To affected area, 163, cm, 03/10/19 14:39:00 EST, Height, 72, kg,... Start Date: 05/20/19 Status: OrderedBenefiber oral powder for reconstitution 5 mL, By Mouth, 2 times a day, PRN as needed for constipation, # 155 Gm, 1 Refills, Maintenance, 10/09/19 16:52:00 EDT, REC Powder, [facility], 5 mL By Mouth 2 times [...] 07/21/19 12:25:00 EDT, Route to Pharmacy Electronically, [facility], 163, cm, 03/10/19 14:39:00 EST, Height, [...] mL, 5 Refills, Maintenance, 09/25/19 9:36:00 EDT, [facility], 163, cm, 08/17/19 9:56:00 EDT, Height, [...] Refills, Maintenance, 07/27/19 15:38:00 EDT, REC Powder, [facility], 163, cm, 03/10/19 14:39:00 EST, Height, [...] Active disorder)(Confirmed) Pica(Confirmed) Active Unsteady gait(Confirmed) Active [facility] [id number] 2011 normal, repeat 2021. Social History Social History Type Response Smoking Status Never smoker entered on: 07/22/15 Sex
--- OUTSIDE RECORDS SUMMARY | 2022-01-02 15:14 | XMS_ITS | Continuity of Care Document ---
:1955 Author Organization [facility] Adult Address [address] [place] [address]- Care Team Providers Name Role Phone Claire TOWNSEND, Tomy Rosales Primary Care Physician [facility] Date[facility]s): 05/12/20 - 06/11/20 [facility] [address] [place] [address]- Allergies, Adverse Reactions, Alerts Substance Reaction Severity [...] toxoids (Td) 11/16/99 Given 1Result Comment: [11/12/2016] [id number] Note: VIS: 09/28/083Admin Note: VIS 08/17/[id number] History: [place] [id number] Note: VIS: 01/06/086Admin Note: VIS: 08/02/057Admin Note: [...] 5 Refills, Soft Stop, 04/25/20 7:36:00 EST, [facility], TAKE 2 TEASPOONFULS BY MOUTH 3 TIMES A DAY AFTER MEAL... Start Date: 04/25/20 Status: Orderedbacitracin-polymyxin B topical 500 u-24115 u/gm ointment 1 applicator, Topically, 2 times a day, To affected area, # 30 Gm, 11 Refills, Maintenance, 05/20/2015:23:00 EDT, Ointment, [facility], 1 applicator Topically 2 times a day,Instr:To affected area, 163, cm, 03/10/19 14:39:00 EST, Height, 72, kg,... Start Date: 05/20/19 Status: OrderedBenefiber oral powder for reconstitution 5 mL, By Mouth, 2 times a day, PRN as needed for constipation, # 155 Gm, 1 Refills, Maintenance, 03/30/20 13:47:00 EST, REC Powder, [facility], 5 mL By Mouth 2 times [...] capsule, 5 Refills, Maintenance, 05/12/20 10:52:00 EDT, [facility], 163, cm, 01/11/20 8:05:00 EST, Height [...] mL, 0 Refills, Maintenance, 11/18/19 14:25:00 EDT, [facility], 2 teasponn q 6 hour prn, [...] 01/29/20 9:40:00 EST, Route to Pharmacy Electronically, [facility], 163, cm, 01/11/20 8:05:00 EST, Height, [...] mL, 5 Refills, Maintenance, 03/29/20 9:08:00 EST, [facility], 163, cm, 01/11/20 8:05:00 EST, Height, [...] Refills, Maintenance, 07/27/19 15:38:00 EDT, REC Powder, [facility], 163, cm, 03/10/19 14:39:00 EST, Height, [...] disorder)(Confirmed) Pica(Confirmed) Active Unsteady gait(Confirmed) Active [facility] [id number] 2011 normal, repeat 2021. Social History Social History Type Response Smoking Status Never smoker entered on: 07/22/15 Sex
--- OUTSIDE RECORDS SUMMARY | 2022-01-02 15:14 | XMS_ITS | Continuity of Care Document ---
:1955 Author Organization [facility] Adult Address [address] [place] [address]- Care Team Providers Name Role Phone Tomy Rangel MD Primary Care Physician [facility] Date[facility]s): 10/16/19 - 11/15/19 [facility] [address] [place] [address]- [facility] Allergies, Adverse Reactions, Alerts Substance Reaction [...] toxoids (Td) 11/16/99 Given 1Result Comment: [11/12/2016] [id number] Note: VIS: 09/28/083Admin Note: VIS 08/17/[id number] History: CENTER [id number] Note: VIS: 01/06/086Admin Note: VIS: 08/02/057Admin Note: [...] 5 Refills, Soft Stop, 05/22/19 13:20:00 EDT, [facility], TAKE 2 TEASPOONFULS BY MOUTH 3 TIMES A DAY AFTER CHAS... Start Date: 05/22/19 Status: Orderedbacitracin-polymyxin B topical 500 u-82318 u/gm ointment 1 applicator, Topically, 2 times a day, To affected area, # 30 Gm, 11 Refills, Maintenance, 05/20/2015:23:00 EDT, Ointment, [facility], 1 applicator Topically 2 times a day,Instr:To affected area, 163, cm, 03/10/19 14:39:00 EST, Height, 72, kg,... Start Date: 05/20/19 Status: OrderedBenefiber oral powder for reconstitution 5 mL, By Mouth, 2 times a day, PRN as needed for constipation, # 155 Gm, 1 Refills, Maintenance, 10/09/19 16:52:00 EDT, REC Powder, [facility], 5 mL By Mouth 2 times [...] 07/21/19 12:25:00 EDT, Route to Pharmacy Electronically, [facility], 163, cm, 03/10/19 14:39:00 EST, Height, [...] mL, 5 Refills, Maintenance, 09/25/19 9:36:00 EDT, [facility], 163, cm, 08/17/19 9:56:00 EDT, Height, [...] Gm, 0 Refills, Maintenance, 11/13/19 10:51:00 EDT, [facility], Take 1 capfull 2x daily, 163, [...] disorder)(Confirmed) Pica(Confirmed) Active Unsteady gait(Confirmed) Active [facility] [id number] 2011 normal, repeat 2021. Social History Social History Type Response Smoking Status Never smoker entered on: 07/22/15 Sex
--- OUTSIDE RECORDS SUMMARY | 2022-01-02 15:14 | XMS_ITS | Continuity of Care Document ---
:1955 Author Organization [facility] Adult Address [address] [place] [address]- Care Team Providers Name Role Phone Tomy Rangel MD Primary Care Physician [facility] Date[facility]): 08/23/19 - 09/22/19 [facility] [address] [place] [address]- [facility] Allergies, Adverse Reactions, Alerts Substance [...] toxoids (Td) 11/16/99 Given 1Result Comment: [11/12/2016] [id number] Note: VIS: 09/28/083Admin Note: VIS 08/17/[id number] History: CENTER [id number] Note: VIS: 01/06/086Admin Note: VIS: 08/02/057Admin Note: [...] 5 Refills, Soft Stop, 05/22/19 13:20:00 EDT, [facility], TAKE 2 TEASPOONFULS BY MOUTH 3 TIMES A DAY AFTER CHAS... Start Date: 05/22/19 Status: Orderedbacitracin-polymyxin B topical 500 u-98975 u/gm ointment 1 applicator, Topically, 2 times a day, To affected area, # 30 Gm, 11 Refills, Maintenance, 05/20/2015:23:00 EDT, Ointment, [facility], 1 applicator Topically 2 times a [...] capsule, 5 Refills, Maintenance, 05/20/19 14:13:00 EDT, [facility], 163, cm, 03/10/19 14:39:00 EST, Height, [...] mL, 0 Refills, Maintenance, 09/02/19 15:56:00 EDT, [facility], 2 teasponn q 6 hour prn, [...] mL, 11 Refills, Acute, 05/27/19 14:04:00 EDT, [facility], 163, cm, 03/10/19 14:39:00 EST, Height, 72, kg, 04/13/18 8:58:00 EST, Dry Weight Start Date: 05/27/19 Status: Orderedloratadine 10 mg oral tablet 10 mg, 1, tablet, By Mouth, Daily, # 30 tablet, Refills 5, Tot. Refills 5, 07/21/19 12:25:00 EDT, Route to Pharmacy Electronically, [facility], 163, cm, 03/10/19 14:39:00 EST, Height, [...] Active disorder)(Confirmed) Pica(Confirmed) Active Unsteady gait(Confirmed) Active [facility] [id number] 2011 normal, repeat 2021. Social History Social History Type Response Smoking Status Never smoker entered on: 07/22/15 Sex
--- OUTSIDE RECORDS SUMMARY | 2022-01-02 15:14 | XMS_ITS | Continuity of Care Document ---
:1955 Author Organization [facility] Adult Address [address] [place] [address]- Care Team Providers Name Role Phone Tomy Rangel MD Primary Care Physician [facility] - 06/12/19 [facility] Adult [address] [place] [address]- [facility] Attending Physician: Tomy Rangel MD Allergies, Adverse [...] toxoids (Td) 11/16/99 Given 1Result Comment: [11/12/2016] [id number] Note: VIS: 09/28/083Admin Note: VIS 08/17/[id number] History: CENTER [id number] Note: VIS: 01/06/086Admin Note: VIS: 08/02/057Admin Note: VIS:08/02/05 Medications acetaminophen 325 mg oral tablet 650 mg, 2, tablet, By Mouth, Every 4 hours, PRN, FOR DISCOMFORT, H/A, TEMP GREATER THAN 101, UNSTEADINESS EXHIBITED BY HEAVY BREATHING, # 120 tablet, Refills 1, Tot. Refills 1, Maintenance, for fever, 09/01/18 11:28:39 EDT, Route to Pharmacy Electr... Start Date: 09/01/18 Status: OrderedAcid Gone 95 mg-358 mg/15 mL oral suspension See Instructions, TAKE 2 TEASPOONFULS BY MOUTH 3 TIMES A DAY AFTER MEALS AND AT BEDTIME / SHAKE WELL, FOR GERD DOSE = 10 ML, # 1,065 mL, 5 Refills, Soft Stop, 05/22/19 13:20:00 EDT, [facility], TAKE 2 TEASPOONFULS BY MOUTH 3 TIMES A DAY AFTER CHAS... Start Date: 05/22/19 Status: OrderedAugmentin 875 mg-125 mg oral tablet 1 tablet, By Mouth, Every 12 hours, for 10 days, # 20 tablet, 0 Refills, Acute 06/15/19 8:50:00 EDT,06/05/19 8:50:00 EDT, Tablet, [facility], 163, cm, 03/10/19 14:39:00 EST, Height, 72, kg, 04/13/18 8:58:00 EST, Dry Weight Start Date: 06/05/19 Stop Date: 06/15/19 Status: Orderedbacitracin-polymyxin B topical 500 u-28491 u/gm ointment 1 applicator, Topically, 2 times a day, To affected area, # 30 Gm, 11 Refills, Maintenance, 05/20/2015:23:00 EDT, Ointment, [facility], 1 applicator Topically 2 times a [...] capsule, 5 Refills, Maintenance, 05/20/19 14:13:00 EDT, [facility], 163, cm, 03/10/19 14:39:00 EST, Height, [...] mL, 11 Refills, Acute, 05/27/19 14:04:00 EDT, [facility], 163, cm, 03/10/19 14:39:00 EST, Height, 72, kg, 04/13/18 8:58:00 EST, Dry Weight Start Date: 05/27/19 Status: Orderedloratadine 10 mg oral tablet 10 mg, 1, tablet, By Mouth, Daily, # 30 tablet, Refills 5, Tot. Refills 5, 01/23/19 12:47:33 EST, Route to Pharmacy Electronically, [id number], [facility], 163, cm, 10/24/18 14:23:34 EDT, Height, 72, kg, 04/13/18 8:58:53... Start Date: 01/23/19 Status: Orderedlubiprostone 24 mcg oral capsule 1 capsule = 24 mcg, By Mouth, 2 times a day, # 60 capsule, 0 Refills, Maintenance, 05/18/15 3:07:13,Capsule Start Date: 05/18/15 Status: OrderedMilk of Magnesia 8% oral suspension 30 mL = 2.4 Gm, By Mouth, Daily at bedtime, # 900 mL, 5 Refills, Maintenance, 03/13/19 8:18:00 EST, [facility], 163, cm, 03/10/19 14:39:00 EST, Height, 72, kg, 04/13/18 8:58:00 EST, Dry Weight Start Date: 03/13/19 Status: Orderedomeprazole 40 mg oral enteric coated capsule 1 capsule = 40 mg, By Mouth, Daily, # 30 capsule, 0 Refills, Maintenance, EC Capsule Start Date: 02/24/11 Status: Orderedpolyethylene glycol 3350 oral powder for reconstitution See Instructions, Take 1 capfull 2x daily, # 1,054 Gm, 3 Refills, Maintenance, 01/07/19 9:31:24 EST,Take 1 capfull 2x daily Start Date: 01/07/19 Status: Orderedpsyllium 3.4 gm/11 gm oral powder for reconstitution = 3.4 Gm, By Mouth, 2 times a day, PRN as needed for constipation, Reguloid dissolve in 8 oz of fluid, # 390 Gm, 1 Refills, Maintenance, 03/27/19 14:22:00 EST, REC Powder, [facility], Please remind pt. ask for additional refills at their 03/10/19... Start Date: 03/27/19 Status: OrderedReguloid 3.4 gm/11 gm oral powder [...] Pica(Confirmed) Active Unsteady gait(Confirmed) [place] [facility] [place] [id number] 2011 normal, repeat 2021. Social History Social History Type Response Smoking Status Never smoker entered on: 07/22/15 Sex
--- OUTSIDE RECORDS SUMMARY | 2022-01-02 15:14 | XMS_ITS | Continuity of Care Document ---
:1955 Author Organization [facility] Adult Address [address] [place] [address]- Care Team Providers Name Role Phone Claire TOWNSEND, Tomy Rosales Primary Care Physician [facility]): 08[facility]18[facility]21 - 09/17/21 [facility] Adult [address] [place] [address]- Allergies, Adverse Reactions, Alerts Substance Reaction Severity [...] toxoids (Td) 11/16/99 Given 1Result Comment: [11/12/2016] [id number] Note: VIS: 09/28/083Admin Note: VIS 08/17/[id number] History: [facility] [id number] Note: VIS: 01/06/086Admin Note: VIS: 08/02/057Admin Note: VIS:08/02/05 Medications acetaminophen 325 mg oral tablet See Instructions, 2 TABS BY MOUTH EVERY 6 HRS FOR DISCOMFORT/PIEDRA/TEMP>101/UNSTEADI- NESS(HEAVY BREATHING)/MAPAP/CALL MD IF GIVING > 7 DAYS/ARHP=89YD 8 TABS/DAY MAX/SEE ANCILLARY, # 120 tablet, Refills 1, Instructions Replace Required Details, Route to... Start Date: 08/24/21 Status: OrderedAcid Gone 95 mg-358 mg/15 mL oral suspension See Instructions, TAKE 2 TEASPOONFULS BY MOUTH 4 TIMES A DAY (AFTER MEALS AND AT BEDTIME) / SHAKE WELL, FOR GERD DOSE = 10 ML, # 1,065 mL, 5 Refills, [facility], 26, TAKE 2 TEASPOONFULS BY MOUTH 4TIMES A DAY (AFTER MEALS AND AT BEDTIME) / SHAKE... Start Date: 03/30/21 Status: Orderedbacitracin zinc 500 units/g topical ointment See Instructions, APPLY A DIME SIZE AMOUNT TO SUPERFICIAL WOUNDS TWICE DAILY NEEDED ANTIBACTERIAL / CALL MD IF USING LONGER THAN 7 DAYS, # 28.4 Gm, 11 Refills, [facility], 10, APPLY A DIME SIZE AMOUNT TO SUPERFICIAL WOUNDS TWICE DAILY NE... Start Date: 08/18/21 Status: OrderedBenefiber oral powder for reconstitution 5 mL, By Mouth, 2 times a day, PRN as needed for constipation, # 155 Gm, 1 Refills, Maintenance, 03/30/20 13:47:00 EST, REC Powder, [facility], 5 mL By Mouth 2 times [...] 200 MG, # 120 capsule, 5 Refills, [facility], 163, cm, 03/28/21 11:55:00 EST, Height [...] tablet, Refills 5, Route to Pharmacy Electronically, [facility], 163, cm, 03/28/21 11:55:00 EST, Height Start Date: 08/04/21 Status: Orderedlubiprostone 24 mcg oral capsule 1 capsule = 24 mcg, By Mouth, 2 times a day, # 60 capsule, 0 Refills, Maintenance, 05/18/15 3:07:13,Capsule Start Date: 05/18/15 Status: OrderedMilk of Magnesia 8% oral suspension 30 mL, By Mouth, Daily at bedtime, FOR CONSTIPATION., # 900 mL, 5 Refills, [facility], 163, cm,10/13/20 9:36:00 EDT, Height Start Date: 10/17/20 Status: OrderedMilk of Magnesia 8% oral suspension See Instructions, TAKE 30 ML BY MOUTH DAILY AT BEDTIME FOR CONSTIPATION, # 900 mL, 5 Refills, [facility], 163, cm, 03/28/21 11:55:00 EST, Height Start [...] Gm, 5 Refills, Maintenance, 08/03/21 15:55:00 EDT, [facility], Take 1 capfull 2x daily, 163, cm, 03/28/21 11:55:00 EST, Height Start Date: 08/03/21 Status: Orderedpsyllium 3.4 gm/11 gm oral powder for reconstitution = 3.4 Gm, By Mouth, 2 times a day, PRN as needed for constipation, Reguloid dissolve in 8 oz of fluid, # 390 Gm, 5 Refills, Maintenance, 07/27/19 15:38:00 EDT, REC Powder, [facility], 163, cm, 03/10/19 14:39:00 EST, Height, [...] day, SIMETHICONE., # 30 mL, 10 Refills, [facility], 163, cm, 03/28/21 11:55:00 EST, Height [...] Active disorder)(Confirmed) Pica(Confirmed) Active Unsteady gait(Confirmed) [place] [facility] [place] [id number] 2011 normal, repeat 2021. Social History Social History Type Response Smoking Status Never smoker entered on: 07/22/15 Sex Male
--- OUTSIDE RECORDS SUMMARY | 2022-01-02 15:15 | XMS_ITS | Continuity of Care Document ---
:1955 Author Organization [facility] Adult Address [address] [place] [address]- Care Team Providers Name Role Phone Claire TOWNSEND, Tomy Rosales Primary Care Physician [facility] 11[facility]16[facility]19 - 12/16/19 [facility] Adult [address] [place] [address]- [facility] Allergies, Adverse Reactions, Alerts Substance Reaction Severity [...] toxoids (Td) 11/16/99 Given 1Result Comment: [11/12/2016] [id number] Note: VIS: 09/28/083Admin Note: VIS [id number] History: CENTER [id number] Note: VIS: dmin Note: VIS: 08/02/057Admin Note: [...] 5 Refills, Soft Stop, 11/27/19 10:25:00 EDT, [facility], TAKE 2 TEASPOONFULS BY MOUTH 3 TIMES A DAY AFTER CHAS... Start Date: 11/27/19 Status: Orderedbacitracin-polymyxin B topical 500 u-34839 u/gm ointment 1 applicator, Topically, 2 times a day, To affected area, # 30 Gm, 11 Refills, Maintenance, 05/20/2015:23:00 EDT, Ointment, [facility], 1 applicator Topically 2 times a day,Instr:To affected area, 163, cm, 03/10/19 14:39:00 EST, Height, 72, kg,... Start Date: 05/20/19 Status: OrderedBenefiber oral powder for reconstitution 5 mL, By Mouth, 2 times a day, PRN as needed for constipation, # 155 Gm, 1 Refills, Maintenance, 12/14/19 15:36:00 EDT, REC Powder, [facility], 5 mL By Mouth 2 times [...] capsule, 5 Refills, Maintenance, 10/16/19 11:45:00 EDT, [facility], 163, cm, 08/17/19 9:56:00 EDT, Height, [...] mL, 0 Refills, Maintenance, 11/18/19 14:25:00 EDT, [facility], 2 teasponn q 6 hour prn, [...] 07/21/19 12:25:00 EDT, Route to Pharmacy Electronically, [facility], 163, cm, 03/10/19 14:39:00 EST, Height, [...] mL, 5 Refills, Maintenance, 09/25/19 9:36:00 EDT, [facility], 163, cm, 08/17/19 9:56:00 EDT, Height, [...] Gm, 1 Refills, Maintenance, 12/11/19 10:02:00 EDT, [facility], Take 1 capfull 2x daily, 163, cm, 08/17/19 9:56:00 EDT, Height, 72, kg, 04/13/18 8:58:00 EST, Dry Weight Start Date: 12/11/19 Status: Orderedpsyllium 3.4 gm/11 gm oral powder for reconstitution = 3.4 Gm, By Mouth, 2 times a day, PRN as needed for constipation, Reguloid dissolve in 8 oz of fluid, # 390 Gm, 5 Refills, Maintenance, 07/27/19 15:38:00 EDT, REC Powder, [facility], 163, cm, 03/10/19 14:39:00 EST, Height, [...] Active disorder)(Confirmed) Pica(Confirmed) Active Unsteady gait(Confirmed) [place] [facility] [place] [id number] 2011 normal, repeat 2021. Social History Social History Type Response Smoking Status Never smoker entered on: 07/22/15 Sex
--- OUTSIDE RECORDS SUMMARY | 2022-01-02 15:15 | XMS_ITS | Continuity of Care Document ---
:1955 Author Organization [facility] Adult Address [address] [place] [address]- Care Team Providers Name Role Phone Tomy Rangel MD Primary Care Physician [facility]): 11/13/19 - 12/13/19 [facility] Adult [address] [place] [address]- [facility] Allergies, Adverse Reactions, Alerts Substance Reaction [...] toxoids (Td) 11/16/99 Given 1Result Comment: [11/12/2016] [id number] Note: VIS: 09/28/083Admin Note: VIS 08/17/[id number] History: CENTER [id number] Note: VIS: 01/06/086Admin Note: VIS: 08/02/057Admin Note: [...] 5 Refills, Soft Stop, 11/27/19 10:25:00 EDT, [facility], TAKE 2 TEASPOONFULS BY MOUTH 3 TIMES A DAY AFTER CHAS... Start Date: 11/27/19 Status: Orderedbacitracin-polymyxin B topical 500 u-22866 u/gm ointment 1 applicator, Topically, 2 times a day, To affected area, # 30 Gm, 11 Refills, Maintenance, 05/20/2015:23:00 EDT, Ointment, [facility], 1 applicator Topically 2 times a day,Instr:To affected area, 163, cm, 03/10/19 14:39:00 EST, Height, 72, kg,... Start Date: 05/20/19 Status: OrderedBenefiber oral powder for reconstitution 5 mL, By Mouth, 2 times a day, PRN as needed for constipation, # 155 Gm, 1 Refills, Maintenance, 10/09/19 16:52:00 EDT, REC Powder, [facility], 5 mL By Mouth 2 times [...] capsule, 5 Refills, Maintenance, 10/16/19 11:45:00 EDT, [facility], 163, cm, 08/17/19 9:56:00 EDT, Height, [...] mL, 0 Refills, Maintenance, 11/18/19 14:25:00 EDT, [facility], 2 teasponn q 6 hour prn, [...] 07/21/19 12:25:00 EDT, Route to Pharmacy Electronically, [facility], 163, cm, 03/10/19 14:39:00 EST, Height, [...] mL, 5 Refills, Maintenance, 09/25/19 9:36:00 EDT, [facility], 163, cm, 08/17/19 9:56:00 EDT, Height, [...] Gm, 1 Refills, Maintenance, 12/11/19 10:02:00 EDT, [facility], Take 1 capfull 2x daily, 163, [...] disorder)(Confirmed) Pica(Confirmed) Active Unsteady gait(Confirmed) Active [facility] [id number] 2011 normal, repeat 2021. Social History Social History Type Response Smoking Status Never smoker entered on: 07/22/15 Sex
--- OUTSIDE RECORDS SUMMARY | 2022-01-02 15:15 | XMS_ITS | Continuity of Care Document ---
:1955 Author Organization [facility] Adult Address [address] [place] [address]- Care Team Providers Name Role Phone Claire TOWNSEND, Tomy Rosales Primary Care Physician [facility]): 05/30/21 - 06/29/21 [facility] [address] [place] [address]- Allergies, Adverse Reactions, Alerts Substance Reaction Severity [...] toxoids (Td) 11/16/99 Given 1Result Comment: [11/12/2016] [id number] Note: VIS: 09/28/083Admin Note: VIS 08/17/[id number] History: CENTER [id number] Note: VIS: 01/06/086Admin Note: VIS: 08/02/057Admin Note: [...] 10 ML, # 1,065 mL, 5 Refills, [facility], 26, TAKE 2 TEASPOONFULS BY MOUTH 4TIMES A DAY (AFTER MEALS AND AT BEDTIME) / SHAKE... Start Date: 03/30/21 Status: Orderedbacitracin zinc 500 units/g topical ointment 1 application, Topically, 3 times a day, PRN abrasion, # 454 Gm, 1 Refills, Maintenance, 07/14/20 7:38:00 EDT, Ointment, [facility], Partial fill upon patient request if the prescription is for a schedule II opioid drug., 1 application Topically... Start Date: 07/14/20 Status: OrderedBenefiber oral powder for reconstitution 5 mL, By Mouth, 2 times a day, PRN as needed for constipation, # 155 Gm, 1 Refills, Maintenance, 03/30/20 13:47:00 EST, REC Powder, [facility], 5 mL By Mouth 2 times [...] 200 MG, # 120 capsule, 5 Refills, [facility], 163, cm, 03/28/21 11:55:00 EST, Height [...] Replace Required Details, Route to Pharmacy Electronically, [facility], 163, cm, 10/13/20 9:36:00 EDT, Height Start Date: 02/02/21 Status: Orderedlubiprostone 24 mcg oral capsule 1 capsule = 24 mcg, By Mouth, 2 times a day, # 60 capsule, 0 Refills, Maintenance, 05/18/15 3:07:13,Capsule Start Date: 05/18/15 Status: OrderedMilk of Magnesia 8% oral suspension 30 mL, By Mouth, Daily at bedtime, FOR CONSTIPATION., # 900 mL, 5 Refills, [facility], 163, cm,10/13/20 9:36:00 EDT, Height Start Date: 10/17/20 Status: OrderedMilk of Magnesia 8% oral suspension See Instructions, TAKE 30 ML BY MOUTH DAILY AT BEDTIME FOR CONSTIPATION, # 900 mL, 5 Refills, [facility], 163, cm, 03/28/21 11:55:00 EST, Height Start [...] Gm, 11 Refills, Maintenance, 07/01/20 11:19:00 EDT, [facility], Take 1 capfull 2x daily, 163, cm, 01/11/20 8:05:00 EST, Height Start Date: 07/01/20 Status: Orderedpsyllium 3.4 gm/11 gm oral powder for reconstitution = 3.4 Gm, By Mouth, 2 times a day, PRN as needed for constipation, Reguloid dissolve in 8 oz of fluid, # 390 Gm, 5 Refills, Maintenance, 07/27/19 15:38:00 EDT, REC Powder, [facility], 163, cm, 03/10/19 14:39:00 EST, Height, [...] day, SIMETHICONE., # 30 mL, 10 Refills, [facility], 163, cm, 10/13/20 9:36:00 EDT, Height [...] Active disorder)(Confirmed) Pica(Confirmed) Active Unsteady gait(Confirmed) [place] [facility] [place] [id number] 2011 normal, repeat 2021. Social History Social History Type Response Smoking Status Never smoker entered on: 07/22/15 Sex Male
--- OUTSIDE RECORDS SUMMARY | 2022-01-02 15:15 | XMS_ITS | Continuity of Care Document ---
:1955 Author Organization [facility] Adult Address [address] [place] [address]- Care Team Providers Name Role Phone Tomy Rangel MD Primary Care Physician [facility] 06[facility]16[facility]21 - 08/10/21 [facility] [address] [place] [address]- Attending Physician: Tomy Rangel MD Allergies, Adverse [...] toxoids (Td) 11/16/99 Given 1Result Comment: [11/12/2016] [id number] Note: VIS: 09/28/083Admin Note: VIS 08/17/[id number] History: CENTER [id number] Note: VIS: 01/06/086Admin Note: VIS: 08/02/057Admin Note: [...] 10 ML, # 1,065 mL, 5 Refills, [facility], 26, TAKE 2 TEASPOONFULS BY MOUTH 4TIMES A DAY (AFTER MEALS AND AT BEDTIME) / SHAKE... Start Date: 03/30/21 Status: Orderedbacitracin zinc 500 units/g topical ointment 1 application, Topically, 3 times a day, PRN abrasion, # 454 Gm, 1 Refills, Maintenance, 07/14/20 7:38:00 EDT, Ointment, [facility], Partial fill upon patient request if the prescription is for a schedule II opioid drug., 1 application Topically... Start Date: 07/14/20 Status: OrderedBenefiber oral powder for reconstitution 5 mL, By Mouth, 2 times a day, PRN as needed for constipation, # 155 Gm, 1 Refills, Maintenance, 03/30/20 13:47:00 EST, REC Powder, [facility], 5 mL By Mouth 2 times [...] 200 MG, # 120 capsule, 5 Refills, [facility], 163, cm, 03/28/21 11:55:00 EST, Height [...] mL, 0 Refills, Maintenance, 11/18/19 14:25:00 EDT, [facility], 2 teasponn q 6 hour [...] tablet, Refills 5, Route to Pharmacy Electronically, [facility], 163, cm, 03/28/21 11:55:00 EST, Height Start Date: 08/04/21 Status: Orderedlubiprostone 24 mcg oral capsule 1 capsule = 24 mcg, By Mouth, 2 times a day, # 60 capsule, 0 Refills, Maintenance, 05/18/15 3:07:13,Capsule Start Date: 05/18/15 Status: OrderedMilk of Magnesia 8% oral suspension 30 mL, By Mouth, Daily at bedtime, FOR CONSTIPATION., # 900 mL, 5 Refills, [facility], 163, cm,10/13/20 9:36:00 EDT, Height Start Date: 10/17/20 Status: OrderedMilk of Magnesia 8% oral suspension See Instructions, TAKE 30 ML BY MOUTH DAILY AT BEDTIME FOR CONSTIPATION, # 900 mL, 5 Refills, [facility], 163, cm, 03/28/21 11:55:00 EST, Height Start [...] Gm, 5 Refills, Maintenance, 08/03/21 15:55:00 EDT, [facility], Take 1 capfull 2x daily, 163, cm, 03/28/21 11:55:00 EST, Height Start Date: 08/03/21 Status: Orderedpsyllium 3.4 gm/11 gm oral powder for reconstitution = 3.4 Gm, By Mouth, 2 times a day, PRN as needed for constipation, Reguloid dissolve in 8 oz of fluid, # 390 Gm, 5 Refills, Maintenance, 07/27/19 15:38:00 EDT, REC Powder, [facility], 163, cm, 03/10/19 14:39:00 EST, [...] day, SIMETHICONE., # 30 mL, 10 Refills, [facility], 163, cm, 10/13/20 9:36:00 EDT, Height [...] Active disorder)(Confirmed) Pica(Confirmed) Active Unsteady gait(Confirmed) Active [facility] [place] [id number] 2011 normal, repeat 2021. Social History Social History Type Response Smoking Status Never smoker entered on: 07/22/15 Sex Male
--- OUTSIDE RECORDS SUMMARY | 2022-01-02 15:15 | XMS_ITS | Continuity of Care Document ---
:1955 Author Organization [facility] Adult Address [address] [place] [address]- Care Team Providers Name Role Phone Claire TOWNSEND, Tomy Rosales Primary Care Physician [facility] 11[facility]19 - 12/20/19 [facility] [address] [place] [address] Allergies, Adverse Reactions, Alerts Substance Reaction [...] toxoids (Td) 11/16/99 Given 1Result Comment: [11/12/2016] [id number] Note: VIS: 09/28/083Admin Note: VIS [id number] History: CENTER [id number] Note: VIS: dmin Note: VIS: 08/02/057Admin Note: [...] 5 Refills, Soft Stop, 11/27/19 10:25:00 EDT, [facility], TAKE 2 TEASPOONFULS BY MOUTH 3 TIMES A DAY AFTER CHAS... Start Date: 11/27/19 Status: Orderedbacitracin-polymyxin B topical 500 u-83372 u/gm ointment 1 applicator, Topically, 2 times a day, To affected area, # 30 Gm, 11 Refills, Maintenance, 05/20/2015:23:00 EDT, Ointment, [facility], 1 applicator Topically 2 times a day,Instr:To affected area, 163, cm, 03/10/19 14:39:00 EST, Height, 72, kg,... Start Date: 05/20/19 Status: OrderedBenefiber oral powder for reconstitution 5 mL, By Mouth, 2 times a day, PRN as needed for constipation, # 155 Gm, 1 Refills, Maintenance, 12/14/19 15:36:00 EDT, REC Powder, [facility], 5 mL By Mouth 2 times [...] capsule, 5 Refills, Maintenance, 10/16/19 11:45:00 EDT, [facility], 163, cm, 08/17/19 9:56:00 EDT, Height, [...] mL, 0 Refills, Maintenance, 11/18/19 14:25:00 EDT, [facility], 2 teasponn q 6 hour prn, [...] 07/21/19 12:25:00 EDT, Route to Pharmacy Electronically, [facility], 163, cm, 03/10/19 14:39:00 EST, Height, [...] mL, 5 Refills, Maintenance, 09/25/19 9:36:00 EDT, [facility], 163, cm, 08/17/19 9:56:00 EDT, Height, [...] Gm, 1 Refills, Maintenance, 12/11/19 10:02:00 EDT, [facility], Take 1 capfull 2x daily, 163, cm, 08/17/19 9:56:00 EDT, Height, 72, kg, 04/13/18 8:58:00 EST, Dry Weight Start Date: 12/11/19 Status: Orderedpsyllium 3.4 gm/11 gm oral powder for reconstitution = 3.4 Gm, By Mouth, 2 times a day, PRN as needed for constipation, Reguloid dissolve in 8 oz of fluid, # 390 Gm, 5 Refills, Maintenance, 07/27/19 15:38:00 EDT, REC Powder, [facility], 163, cm, 03/10/19 14:39:00 EST, Height, [...] Active disorder)(Confirmed) Pica(Confirmed) Active Unsteady gait(Confirmed) Active [facility] [place] [id number] 2011 normal, repeat 2021. Social History Social History Type Response Smoking Status Never smoker entered on: 07/22/15 Sex
--- OUTSIDE RECORDS SUMMARY | 2022-01-02 15:15 | XMS_ITS | Continuity of Care Document ---
:1955 Author Organization [facility] Adult Address [address] [place] [address]- Care Team Providers Name Role Phone Claire TOWNSEND, Tomy Rosales Primary Care Physician Encounter [facility] [place] Date(s): 10/13/20 - 10/20/20 [facility] [address] [place] [address]- Encounter Diagnosis Aspiration pneumonia (Discharge Diagnosis) - 10/13/20 Dysphagia (Discharge Diagnosis) - 10/13/20 History of BPH (Discharge Diagnosis) - 10/13/20 Attending Physician: Isaac ARROYO, Megan De Jesus Allergies, Adverse Reactions, Alerts Substance Reaction Severity [...] toxoids (Td) 11/16/99 Given 1Result Comment: [11/12/2016] [id number] Note: VIS: 09/28/083Admin Note: VIS 08/17/[id number] History: CENTER [id number] Note: VIS: 01/06/086Admin Note: VIS: 08/02/057Admin Note: [...] 10 ML, # 1,065 mL, 5 Refills, [facility], 26, TAKE 2 TEASPOONFULS BY MOUTH 4TIMES A DAY (AFTER MEALS AND AT BEDTIME) / SHAKE... Start Date: 10/17/20 Status: Orderedbacitracin zinc 500 units/g topical ointment 1 application, Topically, 3 times a day, PRN abrasion, # 454 Gm, 1 Refills, Maintenance, 07/14/20 7:38:00 EDT, Ointment, [facility], Partial fill upon patient request if the prescription is for a schedule II opioid drug., 1 application Topically... Start Date: 07/14/20 Status: OrderedBenefiber oral powder for reconstitution 5 mL, By Mouth, 2 times a day, PRN as needed for constipation, # 155 Gm, 1 Refills, Maintenance, 03/30/20 13:47:00 EST, REC Powder, [facility], 5 mL By Mouth 2 times [...] a day, # 120 capsule, 5 Refills, [facility], 163, cm, 10/13/20 9:36:00 EDT, Height [...] mL, 0 Refills, Maintenance, 11/18/19 14:25:00 EDT, [facility], 2 teasponn q 6 hour [...] 07/29/20 11:03:00 EDT, Route to Pharmacy Electronically, [facility], 163, cm, 01/11/20 8:05:00 EST, Height Start Date: 07/29/20 Status: Orderedlubiprostone 24 mcg oral capsule 1 capsule = 24 mcg, By Mouth, 2 times a day, # 60 capsule, 0 Refills, Maintenance, 05/18/15 3:07:13,Capsule Start Date: 05/18/15 Status: OrderedMilk of Magnesia 8% oral suspension 30 mL, By Mouth, Daily at bedtime, FOR CONSTIPATION., # 900 mL, 5 Refills, [facility], 163, cm,10/13/20 9:36:00 EDT, Height Start [...] Gm, 11 Refills, Maintenance, 07/01/20 11:19:00 EDT, [facility], Take 1 capfull 2x daily, 163, cm, 01/11/20 8:05:00 EST, Height Start Date: 07/01/20 Status: Orderedpsyllium 3.4 gm/11 gm oral powder for reconstitution = 3.4 Gm, By Mouth, 2 times a day, PRN as needed for constipation, Reguloid dissolve in 8 oz of fluid, # 390 Gm, 5 Refills, Maintenance, 07/27/19 15:38:00 EDT, REC Powder, [facility], 163, cm, 03/10/19 14:39:00 EST, [...] mL, 11 Refills, Acute, 07/25/20 13:38:00 EDT, [facility], 163, cm, 01/11/20 8:05:00 EST, Height [...] Active disorder)(Confirmed) Pica(Confirmed) Active Unsteady gait(Confirmed) Active [facility] [id number] 2011 normal, repeat 2021. Diagnosis Diagnosis Type Effective Dates Health Clinical Infor mant Status Service Aspiration Discharge 10/13/20 pneumonia Diagnosis Dysphagia Discharge 10/13/20 Diagnosis History of BPH Discharge 10/13/20 Diagnosis Vital Signs Most recent to oldest [Reference Range]: 1 Height 163 cm (10/13/20 9:36 AM) Blood Pressure [90-138/55-84 mm Hg] 90/62 mm Hg (10/13/20 9:36 AM) Respiratory Rate [16-30 br/min] 12 br/min *L* (10/13/20 9:36 AM) Blood pressure sites Leg, left (10/13/20 9:36 AM) Social History Social History Type Response Smoking Status Never smoker entered on: 07/22/15 Sex Male
--- OUTSIDE RECORDS SUMMARY | 2022-01-02 15:15 | XMS_ITS | Continuity of Care Document ---
:1955 Author Organization [facility] Adult Address [address] [place] [address]- Care Team Providers Name Role Phone Tomy Rangel MD Primary Care Physician Encounter [facility] [place] Date(s): 06/10/19 - 06/17/19 [facility] Adult [address] [place] [address]- [facility] Encounter Diagnosis Aspiration pneumonia (Discharge Diagnosis) - 06/10/19 Attending Physician: Tomy Rangel MD Allergies, Adverse [...] toxoids (Td) 11/16/99 Given 1Result Comment: [11/12/2016] [id number] Note: VIS: 09/28/083Admin Note: VIS [id number] History: CENTER [id number] Note: VIS: 01/06/086Admin Note: VIS: 08/02/057Admin Note: [...] 5 Refills, Soft Stop, 05/22/19 13:20:00 EDT, [facility], TAKE 2 TEASPOONFULS BY MOUTH 3 TIMES A DAY AFTER CHAS... Start Date: 05/22/19 Status: Orderedbacitracin-polymyxin B topical 500 u-21692 u/gm ointment 1 applicator, Topically, 2 times a day, To affected area, # 30 Gm, 11 Refills, Maintenance, 05/20/2015:23:00 EDT, Ointment, [facility], 1 applicator Topically 2 times a [...] capsule, 5 Refills, Maintenance, 05/20/19 14:13:00 EDT, [facility], 163, cm, 03/10/19 14:39:00 EST, Height, [...] mL, 11 Refills, Acute, 05/27/19 14:04:00 EDT, [facility], 163, cm, 03/10/19 14:39:00 EST, Height, 72, kg, 04/13/18 8:58:00 EST, Dry Weight Start Date: 05/27/19 Status: Orderedloratadine 10 mg oral tablet 10 mg, 1, tablet, By Mouth, Daily, # 30 tablet, Refills 5, Tot. Refills 5, 01/23/19 12:47:33 EST, Route to Pharmacy Electronically, [id number], [facility], 163, cm, 10/24/18 14:23:34 EDT, Height, [...] mL, 5 Refills, Maintenance, 03/13/19 8:18:00 EST, [facility], 163, cm, 03/10/19 14:39:00 EST, Height, [...] Refills, Maintenance, 03/27/19 14:22:00 EST, REC Powder, [facility], Please remind pt. ask for additional [...] Active disorder)(Confirmed) Pica(Confirmed) Active Unsteady gait(Confirmed) Active [facility] [id number] 2011 normal, repeat 2021. Diagnosis Diagnosis Type Effective Dates Health Clinical Infor mant Status Service Aspiration Discharge 06/10/19 pneumonia Diagnosis Social History Social History Type Response Smoking Status Never smoker entered on: 07/22/15 Sex
--- OUTSIDE RECORDS SUMMARY | 2022-01-02 15:15 | XMS_ITS | Continuity of Care Document ---
:1955 Author Organization [facility] Adult Address [address] [place] [address]- Care Team Providers Name Role Phone Claire TOWNSEND, Tomy Rosales Primary Care Physician Encounter [facility] Date(s): 03/30/20 - 04/29/20 [facility] Adult [address] [place] [address]- Allergies, Adverse Reactions, Alerts Substance Reaction Severity [...] toxoids (Td) 11/16/99 Given 1Result Comment: [11/12/2016] [id number] Note: VIS: 09/28/083Admin Note: VIS 08/17/[id number] History: [facility] [id number] Note: VIS: 01/06/086Admin Note: VIS: 08/02/057Admin Note: [...] 5 Refills, Soft Stop, 04/25/20 7:36:00 EST, [facility], TAKE 2 TEASPOONFULS BY MOUTH 3 TIMES A DAY AFTER MEAL... Start Date: 04/25/20 Status: Orderedbacitracin-polymyxin B topical 500 u-26941 u/gm ointment 1 applicator, Topically, 2 times a day, To affected area, # 30 Gm, 11 Refills, Maintenance, 05/20/2015:23:00 EDT, Ointment, [facility], 1 applicator Topically 2 times a day,Instr:To affected area, 163, cm, 03/10/19 14:39:00 EST, Height, 72, kg,... Start Date: 05/20/19 Status: OrderedBenefiber oral powder for reconstitution 5 mL, By Mouth, 2 times a day, PRN as needed for constipation, # 155 Gm, 1 Refills, Maintenance, 03/30/20 13:47:00 EST, REC Powder, [facility], 5 mL By Mouth 2 times [...] 01/29/20 9:40:00 EST, Route to Pharmacy Electronically, [facility], 163, cm, 01/11/20 8:05:00 EST, Height, [...] mL, 5 Refills, Maintenance, 03/29/20 9:08:00 EST, [facility], 163, cm, 01/11/20 8:05:00 EST, Height, [...] Refills, Maintenance, 07/27/19 15:38:00 EDT, REC Powder, [facility], 163, cm, 03/10/19 14:39:00 EST, Height, [...] disorder)(Confirmed) Pica(Confirmed) Active Unsteady gait(Confirmed) Active [facility] [id number] 2011 normal, repeat 2021. Social History Social History Type Response Smoking Status Never smoker entered on: 07/22/15 Sex
--- OUTSIDE RECORDS SUMMARY | 2022-01-02 15:15 | XMS_ITS | Continuity of Care Document ---
:1955 Author Organization [facility] Adult Address [address] [place] [address]- Care Team Providers Name Role Phone Tomy Rangel MD Primary Care Physician Encounter [facility] [place] Date(s): 12/19/20 - 01/18/21 [facility] Adult [address] [place] [address]- Allergies, Adverse Reactions, Alerts Substance Reaction Severity [...] toxoids (Td) 11/16/99 Given 1Result Comment: [11/12/2016] [id number] Note: VIS: 09/28/083Admin Note: VIS 08/17/[id number] History: CENTER [id number] Note: VIS: 01/06/086Admin Note: VIS: 08/02/057Admin Note: [...] 10 ML, # 1,065 mL, 5 Refills, [facility], 26, TAKE 2 TEASPOONFULS BY MOUTH 4TIMES A DAY (AFTER MEALS AND AT BEDTIME) / SHAKE... Start Date: 10/17/20 Status: Orderedbacitracin zinc 500 units/g topical ointment 1 application, Topically, 3 times a day, PRN abrasion, # 454 Gm, 1 Refills, Maintenance, 07/14/20 7:38:00 EDT, Ointment, [facility], Partial fill upon patient request if the prescription is for a schedule II opioid drug., 1 application Topically... Start Date: 07/14/20 Status: OrderedBenefiber oral powder for reconstitution 5 mL, By Mouth, 2 times a day, PRN as needed for constipation, # 155 Gm, 1 Refills, Maintenance, 03/30/20 13:47:00 EST, REC Powder, [facility], 5 mL By Mouth 2 times [...] 07/29/20 11:03:00 EDT, Route to Pharmacy Electronically, [facility], 163, cm, 01/11/20 8:05:00 EST, Height Start Date: 07/29/20 Status: Orderedlubiprostone 24 mcg oral capsule 1 capsule = 24 mcg, By Mouth, 2 times a day, # 60 capsule, 0 Refills, Maintenance, 05/18/15 3:07:13,Capsule Start Date: 05/18/15 Status: OrderedMilk of Magnesia 8% oral suspension 30 mL, By Mouth, Daily at bedtime, FOR CONSTIPATION., # 900 mL, 5 Refills, [facility], 163, cm,10/13/20 9:36:00 EDT, Height Start [...] Gm, 11 Refills, Maintenance, 07/01/20 11:19:00 EDT, [facility], Take 1 capfull 2x daily, 163, cm, 01/11/20 8:05:00 EST, Height Start Date: 07/01/20 Status: Orderedpsyllium 3.4 gm/11 gm oral powder for reconstitution = 3.4 Gm, By Mouth, 2 times a day, PRN as needed for constipation, Reguloid dissolve in 8 oz of fluid, # 390 Gm, 5 Refills, Maintenance, 07/27/19 15:38:00 EDT, REC Powder, [facility], 163, cm, 03/10/19 14:39:00 EST, Height, [...] mL, 11 Refills, Acute, 07/25/20 13:38:00 EDT, [facility], 163, cm, 01/11/20 8:05:00 EST, Height [...] Pica(Confirmed) Active Unsteady gait(Confirmed) Active [facility] [id number] 2011 normal, repeat 2021. Social History Social History Type Response Smoking Status Never smoker entered on: 07/22/15 Sex Male
--- OUTSIDE RECORDS SUMMARY | 2022-01-02 15:15 | XMS_ITS | Continuity of Care Document ---
:1955 Author Organization [facility] Adult Address [address] [place] [address]- Care Team Providers Name Role Phone Tomy Rangel MD Primary Care Physician Encounter [facility] Date(s): 09/01/20 - 10/01/20 [facility] Adult [address] [place] [address]- Allergies, Adverse Reactions, Alerts Substance Reaction Severity [...] toxoids (Td) 11/16/99 Given 1Result Comment: [11/12/2016] [id number] Note: VIS: 09/28/083Admin Note: VIS 08/17/[id number] History: [facility] [id number] Note: VIS: dmin Note: VIS: 08/02/057Admin Note: [...] 5 Refills, Soft Stop, 04/25/20 7:36:00 EST, [facility], TAKE 2 TEASPOONFULS BY MOUTH 3 TIMES A DAY AFTER MEAL... Start Date: 04/25/20 Status: Orderedbacitracin zinc 500 units/g topical ointment 1 application, Topically, 3 times a day, PRN abrasion, # 454 Gm, 1 Refills, Maintenance, 07/14/20 7:38:00 EDT, Ointment, [facility], Partial fill upon patient request if the prescription is for a schedule II opioid drug., 1 application Topically... Start Date: 07/14/20 Status: OrderedBenefiber oral powder for reconstitution 5 mL, By Mouth, 2 times a day, PRN as needed for constipation, # 155 Gm, 1 Refills, Maintenance, 03/30/20 13:47:00 EST, REC Powder, [facility], 5 mL By Mouth 2 times [...] capsule, 5 Refills, Maintenance, 05/12/20 10:52:00 EDT, [facility], 163, cm, 01/11/20 8:05:00 EST, Height [...] mL, 0 Refills, Maintenance, 11/18/19 14:25:00 EDT, [facility], 2 teasponn q 6 hour prn, [...] 07/29/20 11:03:00 EDT, Route to Pharmacy Electronically, [facility], 163, cm, 01/11/20 8:05:00 EST, Height [...] Refills, Maintenance, 07/27/19 15:38:00 EDT, REC Powder, [facility], 163, cm, 03/10/19 14:39:00 EST, Height, [...] gait(Confirmed) [place] [facility] [id number] 2011 normal, repeat 2021. Social History Social History Type Response Smoking Status Never smoker entered on: 07/22/15 Sex
--- OUTSIDE RECORDS SUMMARY | 2022-01-02 15:15 | XMS_ITS | Continuity of Care Document ---
:1955 Author Organization [facility] Adult Address [address] [place] [address]- Care Team Providers Name Role Phone Claire TOWNSEND, Tomy Rosales Primary Care Physician Encounter [facility] [place] Date(s): 10/20/21 - 11/23/21 [facility] [address] [place] [address]- Attending Physician: Soraida Luna NP Allergies, Adverse Reactions, Alerts Substance Reaction Severity [...] toxoids (Td) 11/16/99 Given 1Result Comment: [11/12/2016] [id number] Note: VIS: 09/28/083Admin Note: VIS 08/17/[id number] History: [facility] [id number] Note: VIS: 01/06/086Admin Note: VIS: 08/02/057Admin Note: VIS:08/02/05 Medications acetaminophen 325 mg oral tablet See Instructions, 2 TABS BY MOUTH EVERY 6 HRS FOR DISCOMFORT/PIEDRA/TEMP>101/UNSTEADI- NESS(HEAVY BREATHING)/MAPAP/CALL MD IF GIVING > 7 DAYS/IRYS=315FY 8 TABS/DAY MAX/SEE ANCILLARY, # 120 tablet, Refills 1, Instructions Replace Required Details, Route to... Start Date: 08/24/21 Status: OrderedAcid Gone 95 mg-358 mg/15 mL oral suspension See Instructions, TAKE 2 TEASPOONFULS BY MOUTH 4 TIMES A DAY (AFTER MEALS AND AT BEDTIME) / SHAKE WELL, FOR GERD DOSE = 10 ML, # 1,065 mL, 5 Refills, [facility], 26, TAKE 2 TEASPOONFULS BY MOUTH 4TIMES A DAY (AFTER MEALS AND AT BEDTIME) / SHAKE... Start Date: 09/18/21 Status: Orderedbacitracin zinc 500 units/g topical ointment See Instructions, APPLY A DIME SIZE AMOUNT TO SUPERFICIAL WOUNDS TWICE DAILY NEEDED ANTIBACTERIAL / CALL MD IF USING LONGER THAN 7 DAYS, # 28.4 Gm, 11 Refills, [facility], 10, APPLY A DIME SIZE AMOUNT TO SUPERFICIAL WOUNDS TWICE DAILY NE... Start Date: 08/18/21 Status: OrderedBenefiber oral powder for reconstitution 5 mL, By Mouth, 2 times a day, PRN as needed for constipation, # 155 Gm, 1 Refills, Maintenance, 03/30/20 13:47:00 EST, REC Powder, [facility], 5 mL By Mouth 2 times [...] mL, 0 Refills, Maintenance, 11/18/19 14:25:00 EDT, [facility], 2 teasponn q 6 hour prn, [...] tablet, Refills 5, Route to Pharmacy Electronically, [facility], 163, cm, 03/28/21 11:55:00 EST, Height Start Date: 08/04/21 Status: Orderedlubiprostone 24 mcg oral capsule 1 capsule = 24 mcg, By Mouth, 2 times a day, # 60 capsule, 0 Refills, Maintenance, 05/18/15 3:07:13,Capsule Start Date: 05/18/15 Status: OrderedMilk of Magnesia 8% oral suspension 30 mL, By Mouth, Daily at bedtime, FOR CONSTIPATION., # 900 mL, 5 Refills, [facility], 163, cm,10/13/20 9:36:00 EDT, Height Start Date: 10/17/20 Status: OrderedMilk of Magnesia 8% oral suspension See Instructions, TAKE 30 ML BY MOUTH DAILY AT BEDTIME FOR CONSTIPATION, # 900 mL, 5 Refills, [facility], 163, cm, 03/28/21 11:55:00 EST, Height Start [...] Gm, 5 Refills, Maintenance, 08/03/21 15:55:00 EDT, [facility], Take 1 capfull 2x daily, 163, cm, 03/28/21 11:55:00 EST, Height Start Date: 08/03/21 Status: Orderedpsyllium 3.4 gm/11 gm oral powder for reconstitution = 3.4 Gm, By Mouth, 2 times a day, PRN as needed for constipation, Reguloid dissolve in 8 oz of fluid, # 390 Gm, 5 Refills, Maintenance, 07/27/19 15:38:00 EDT, REC Powder, [facility], 163, cm, 03/10/19 14:39:00 EST, Height, [...] day, SIMETHICONE., # 30 mL, 10 Refills, [facility], 163, cm, 03/28/21 11:55:00 EST, Height [...] Confirmed Active Unsteady gait Confirmed Active [facility] [id number] 2011 normal, repeat 2021. Social History Social History Type Response Smoking Status Never smoker entered on: 07/22/15 Sex Male Patient Care team information PersonnelName: Tomy Rangel MD Address: Address: [address] [place] [id number]
--- OUTSIDE RECORDS SUMMARY | 2022-01-02 15:15 | XMS_ITS | Continuity of Care Document ---
:[address] [facility] Adult Address [address] [place] [address]- Care Team Providers Name Role Phone Tomy Rangel MD Primary Care Physician Encounter [facility] [place] Date(s): 08/04/19 - 08/11/19 [facility] [address] [place] [address]- [facility] Encounter Diagnosis Aspiration pneumonia (Discharge Diagnosis) - 08/04/19 Mental retardation (Discharge Diagnosis) - 08/04/19 Attending Physician: Tomy Rangel MD Allergies, Adverse [...] toxoids (Td) 11/16/99 Given 1Result Comment: [11/12/2016] [id number] Note: VIS: 09/28/083Admin Note: VIS [id number] History: CENTER [id number] Note: VIS: dmin Note: VIS: 08/02/057Admin Note: [...] 5 Refills, Soft Stop, 05/22/19 13:20:00 EDT, [facility], TAKE 2 TEASPOONFULS BY MOUTH 3 TIMES A DAY AFTER CHAS... Start Date: 05/22/19 Status: Orderedbacitracin-polymyxin B topical 500 u-73475 u/gm ointment 1 applicator, Topically, 2 times a day, To affected area, # 30 Gm, 11 Refills, Maintenance, 05/20/2015:23:00 EDT, Ointment, [facility], 1 applicator Topically 2 times a [...] capsule, 5 Refills, Maintenance, 05/20/19 14:13:00 EDT, [facility], 163, cm, 03/10/19 14:39:00 EST, Height, [...] mL, 11 Refills, Acute, 05/27/19 14:04:00 EDT, [facility], 163, cm, 03/10/19 14:39:00 EST, Height, 72, kg, 04/13/18 8:58:00 EST, Dry Weight Start Date: 05/27/19 Status: Orderedloratadine 10 mg oral tablet 10 mg, 1, tablet, By Mouth, Daily, # 30 tablet, Refills 5, Tot. Refills 5, 07/21/19 12:25:00 EDT, Route to Pharmacy Electronically, [facility], 163, cm, 03/10/19 14:39:00 EST, Height, [...] mL, 5 Refills, Maintenance, 03/13/19 8:18:00 EST, [facility], 163, cm, 03/10/19 14:39:00 EST, Height, [...] Refills, Maintenance, 07/27/19 15:38:00 EDT, REC Powder, [facility], 163, cm, 03/10/19 14:39:00 EST, Height, [...] Active disorder)(Confirmed) Pica(Confirmed) Active Unsteady gait(Confirmed) Active [facility] [place] [id number] 2011 normal, repeat 2021. Diagnosis Diagnosis Type Effective Dates Health Clinical Infor mant Status Service Aspiration Discharge 08/04/19 pneumonia Diagnosis Mental retardation Discharge 08/04/19 Diagnosis Vital Signs Most recent to oldest [Reference Range]: 1 Height 163 cm (08/04/19 2:43 PM) Social History Social History Type Response Smoking Status Never smoker entered on: 07/22/15 Sex
--- OUTSIDE RECORDS SUMMARY | 2022-01-02 15:15 | XMS_ITS | Continuity of Care Document ---
:1955 Author Organization [facility] Adult Address [address] [place] [address]- Care Team Providers Name Role Phone Tomy Rangel MD Primary Care Physician Encounter [facility] Date(s): 03/28/21 - 04/04/21 [facility] Adult [address] [place] [address]- Encounter Diagnosis Aspiration pneumonia (Discharge Diagnosis) - 03/28/21 Attending Physician: Tomy Rangel MD Allergies, Adverse [...] toxoids (Td) 11/16/99 Given 1Result Comment: [11/12/2016] [id number] Note: VIS: 09/28/083Admin Note: VIS [id number] History: CENTER [id number] Note: VIS: 01/06/086Admin Note: VIS: 08/02/057Admin Note: [...] 10 ML, # 1,065 mL, 5 Refills, [facility], 26, TAKE 2 TEASPOONFULS BY MOUTH 4TIMES A DAY (AFTER MEALS AND AT BEDTIME) / SHAKE... Start Date: 03/30/21 Status: Orderedbacitracin zinc 500 units/g topical ointment 1 application, Topically, 3 times a day, PRN abrasion, # 454 Gm, 1 Refills, Maintenance, 07/14/20 7:38:00 EDT, Ointment, [facility], Partial fill upon patient request if the prescription is for a schedule II opioid drug., 1 application Topically... Start Date: 07/14/20 Status: OrderedBenefiber oral powder for reconstitution 5 mL, By Mouth, 2 times a day, PRN as needed for constipation, # 155 Gm, 1 Refills, Maintenance, 03/30/20 13:47:00 EST, REC Powder, [facility], 5 mL By Mouth 2 times [...] a day, # 120 capsule, 5 Refills, [facility], 163, cm, 10/13/20 9:36:00 EDT, Height [...] mL, 0 Refills, Maintenance, 11/18/19 14:25:00 EDT, [facility], 2 teasponn q 6 hour prn, [...] Replace Required Details, Route to Pharmacy Electronically, [facility], 163, cm, 10/13/20 9:36:00 EDT, Height Start Date: 02/02/21 Status: Orderedlubiprostone 24 mcg oral capsule 1 capsule = 24 mcg, By Mouth, 2 times a day, # 60 capsule, 0 Refills, Maintenance, 05/18/15 3:07:13,Capsule Start Date: 05/18/15 Status: OrderedMilk of Magnesia 8% oral suspension 30 mL, By Mouth, Daily at bedtime, FOR CONSTIPATION., # 900 mL, 5 Refills, [facility], 163, cm,10/13/20 9:36:00 EDT, Height Start [...] Gm, 11 Refills, Maintenance, 07/01/20 11:19:00 EDT, [facility], Take 1 capfull 2x daily, 163, cm, 01/11/20 8:05:00 EST, Height Start Date: 07/01/20 Status: Orderedpsyllium 3.4 gm/11 gm oral powder for reconstitution = 3.4 Gm, By Mouth, 2 times a day, PRN as needed for constipation, Reguloid dissolve in 8 oz of fluid, # 390 Gm, 5 Refills, Maintenance, 07/27/19 15:38:00 EDT, REC Powder, [facility], 163, cm, 03/10/19 14:39:00 EST, Height, [...] day, SIMETHICONE., # 30 mL, 10 Refills, [facility], 163, cm, 10/13/20 9:36:00 EDT, Height [...] disorder)(Confirmed) Pica(Confirmed) Active Unsteady gait(Confirmed) Active [facility] [id number] 2011 normal, repeat 2021. Diagnosis Diagnosis Type Effective Dates Health Clinical Infor mant Status Service Aspiration Discharge 03/28/21 pneumonia Diagnosis Vital Signs Most recent to oldest [Reference Range]: 1 Height 163 cm (03/28/21 11:55 AM) Blood Pressure [90-138/55-84 mm Hg] 119/78 mm Hg (03/28/21 11:55 AM) Blood pressure sites Arm, left (03/28/21 11:55 AM) Social History Social History Type Response Smoking Status Never smoker entered on: 07/22/15 Sex Male
--- OUTSIDE RECORDS SUMMARY | 2022-01-02 15:16 | XMS_ITS | Continuity of Care Document ---
:1955 Author Organization [facility] Adult Address [address] [place] [address]- Care Team Providers Name Role Phone Tomy Rangel MD Primary Care Physician Encounter [facility] Date(s): 05/20/20 - 09/17/20 [facility] [address] [place] [address]- Attending Physician: Tomy Rangel MD Allergies, Adverse [...] toxoids (Td) 11/16/99 Given 1Result Comment: [11/12/2016] [id number] Note: VIS: 09/28/083Admin Note: VIS 08/17/[id number] History: [facility] [id number] Note: VIS: 01/06/086Admin Note: VIS: 08/02/057Admin Note: [...] 5 Refills, Soft Stop, 04/25/20 7:36:00 EST, [facility], TAKE 2 TEASPOONFULS BY MOUTH 3 TIMES A DAY AFTER MEAL... Start Date: 04/25/20 Status: Orderedbacitracin zinc 500 units/g topical ointment 1 application, Topically, 3 times a day, PRN abrasion, # 454 Gm, 1 Refills, Maintenance, 07/14/20 7:38:00 EDT, Ointment, [facility], Partial fill upon patient request if the prescription is for a schedule II opioid drug., 1 application Topically... Start Date: 07/14/20 Status: OrderedBenefiber oral powder for reconstitution 5 mL, By Mouth, 2 times a day, PRN as needed for constipation, # 155 Gm, 1 Refills, Maintenance, 03/30/20 13:47:00 EST, REC Powder, [facility], 5 mL By Mouth 2 times [...] capsule, 5 Refills, Maintenance, 05/12/20 10:52:00 EDT, [facility], 163, cm, 01/11/20 8:05:00 EST, Height [...] mL, 0 Refills, Maintenance, 11/18/19 14:25:00 EDT, [facility], 2 teasponn q 6 hour prn, [...] 07/29/20 11:03:00 EDT, Route to Pharmacy Electronically, [facility], 163, cm, 01/11/20 8:05:00 EST, Height [...] Refills, Maintenance, 07/27/19 15:38:00 EDT, REC Powder, [facility], 163, cm, 03/10/19 14:39:00 EST, Height, [...] mL, 11 Refills, Acute, 07/25/20 13:38:00 EDT, [facility], 163, cm, 01/11/20 8:05:00 EST, Height [...] disorder)(Confirmed) Pica(Confirmed) Active Unsteady gait(Confirmed) Active 1B [id number] 2011 normal, repeat 2021. Social History Social History Type Response Smoking Status Never smoker entered on: 07/22/15 Sex
--- OUTSIDE RECORDS SUMMARY | 2022-01-02 15:16 | XMS_ITS | Continuity of Care Document ---
:1955 Author Organization [facility] Adult Address [address] [place] [address]- Care Team Providers Name Role Phone Tomy Rangel MD Primary Care Physician Encounter [facility] Date(s): 11/27/19 - 12/04/19 [facility] [address] [place] [address]- [facility] Attending Physician: Not on Staff, Attending MD Allergies, Adverse Reactions, Alerts Substance Reaction [...] toxoids (Td) 11/16/99 Given 1Result Comment: [11/12/2016] [id number] Note: VIS: 09/28/083Admin Note: VIS [id number] History: [place] [id number] Note: VIS: dmin Note: VIS: dmin Note: VIS:08/02/05 Medications acetaminophen 325 mg oral [...] 5 Refills, Soft Stop, 11/27/19 10:25:00 EDT, [facility], TAKE 2 TEASPOONFULS BY MOUTH 3 TIMES A DAY AFTER CHAS... Start Date: 11/27/19 Status: Orderedbacitracin-polymyxin B topical 500 u-39653 u/gm ointment 1 applicator, Topically, 2 times a day, To affected area, # 30 Gm, 11 Refills, Maintenance, 05/20/2015:23:00 EDT, Ointment, [facility], 1 applicator Topically 2 times a day,Instr:To affected area, 163, cm, 03/10/19 14:39:00 EST, Height, 72, kg,... Start Date: 05/20/19 Status: OrderedBenefiber oral powder for reconstitution 5 mL, By Mouth, 2 times a day, PRN as needed for constipation, # 155 Gm, 1 Refills, Maintenance, 10/09/19 16:52:00 EDT, REC Powder, [facility], 5 mL By Mouth 2 times [...] 07/21/19 12:25:00 EDT, Route to Pharmacy Electronically, [facility], 163, cm, 03/10/19 14:39:00 EST, Height, [...] mL, 5 Refills, Maintenance, 09/25/19 9:36:00 EDT, [facility], 163, cm, 08/17/19 9:56:00 EDT, Height, [...] Gm, 0 Refills, Maintenance, 11/13/19 10:51:00 EDT, [facility], Take 1 capfull 2x daily, 163, [...] disorder)(Confirmed) Pica(Confirmed) Active Unsteady gait(Confirmed) Active 1B 11820Qbafsmxmzet 2011 normal, repeat 2021. Social History Social History Type Response Smoking Status Never smoker entered on: 07/22/15 Sex
--- OUTSIDE RECORDS SUMMARY | 2022-01-02 15:16 | XMS_ITS | Continuity of Care Document ---
:1955 Author Organization [facility] Adult Address [address] [place] [address]- Care Team Providers Name Role Phone Claire TOWNSEND, Tomy Rosales Primary Care Physician Encounter [facility] Date(s): 01/11/20 - 02/10/20 [facility] [address] [place] [address]- Attending Physician: Hui Cowan Admitting Physician: AdmHui [...] toxoids (Td) 11/16/99 Given 1Result Comment: [11/12/2016] [id number] Note: VIS: 09/28/083Admin Note: VIS [id number] History: CENTER [id number] Note: VIS: 01/06/086Admin Note: VIS: 08/02/057Admin Note: [...] 5 Refills, Soft Stop, 11/27/19 10:25:00 EDT, [facility], TAKE 2 TEASPOONFULS BY MOUTH 3 TIMES A DAY AFTER CHAS... Start Date: 11/27/19 Status: Orderedbacitracin-polymyxin B topical 500 u-33676 u/gm ointment 1 applicator, Topically, 2 times a day, To affected area, # 30 Gm, 11 Refills, Maintenance, 05/20/2015:23:00 EDT, Ointment, [facility], 1 applicator Topically 2 times a day,Instr:To affected area, 163, cm, 03/10/19 14:39:00 EST, Height, 72, kg,... Start Date: 05/20/19 Status: OrderedBenefiber oral powder for reconstitution 5 mL, By Mouth, 2 times a day, PRN as needed for constipation, # 155 Gm, 1 Refills, Maintenance, 02/02/20 12:03:00 EST, REC Powder, [facility], 5 mL By Mouth 2 times a day,PRN:as needed for constipation, 163, cm, 01/11/20 8:05:00 EST, Height, 72,... Start Date: 02/02/20 Status: Orderedcitalopram 20 mg oral tablet 3 [...] capsule, 5 Refills, Maintenance, 10/16/19 11:45:00 EDT, [facility], 163, cm, 08/17/19 9:56:00 EDT, Height, [...] mL, 0 Refills, Maintenance, 11/18/19 14:25:00 EDT, [facility], 2 teasponn q 6 hour prn, [...] mL, 11 Refills, Acute, 01/08/20 11:44:00 EST, [facility], 163, cm, 12/21/19 14:42:00 EST, Height, 72, kg, 04/13/18 8:58:00 EST, Dry Weight Start Date: 01/08/20 Status: Orderedloratadine 10 mg oral tablet 10 mg, 1, tablet, By Mouth, Daily, # 30 tablet, Refills 5, Tot. Refills 5, 01/29/20 9:40:00 EST, Route to Pharmacy Electronically, [facility], 163, cm, 01/11/20 8:05:00 EST, Height, [...] mL, 5 Refills, Maintenance, 09/25/19 9:36:00 EDT, [facility], 163, cm, 08/17/19 9:56:00 EDT, Height, [...] Gm, 1 Refills, Maintenance, 12/11/19 10:02:00 EDT, [facility], Take 1 capfull 2x [...] Refills, Maintenance, 07/27/19 15:38:00 EDT, REC Powder, [facility], 163, cm, 03/10/19 14:39:00 EST, Height, [...] disorder)(Confirmed) Pica(Confirmed) Active Unsteady gait(Confirmed) Active [facility] [id number] 2011 normal, repeat 2021. Social History Social History Type Response Smoking Status Never smoker entered on: 07/22/15 Sex
--- OUTSIDE RECORDS SUMMARY | 2022-01-02 15:16 | XMS_ITS | Continuity of Care Document ---
:1955 Author Organization [facility] Adult Address [address] [place] [address]- Care Team Providers Name Role Phone Claire TOWNSEND, Tomy Rosales Primary Care Physician Encounter [facility] Date(s): 08/31/21 - 09/30/21 [facility] [address] [place] [address]- Allergies, Adverse Reactions, Alerts Substance Reaction Severity [...] toxoids (Td) 11/16/99 Given 1Result Comment: [11/12/2016] [id number] Note: VIS: 09/28/083Admin Note: VIS 08/17/[id number] History: CENTER [id number] Note: VIS: 01/06/086Admin Note: VIS: 08/02/057Admin Note: VIS:08/02/05 Medications acetaminophen 325 mg oral tablet See Instructions, 2 TABS BY MOUTH EVERY 6 HRS FOR DISCOMFORT/PIEDRA/TEMP>101/UNSTEADI- NESS(HEAVY BREATHING)/MAPAP/CALL MD IF GIVING > 7 DAYS/JBFB=460FA 8 TABS/DAY MAX/SEE ANCILLARY, # 120 tablet, Refills 1, Instructions Replace Required Details, Route to... Start Date: 08/24/21 Status: OrderedAcid Gone 95 mg-358 mg/15 mL oral suspension See Instructions, TAKE 2 TEASPOONFULS BY MOUTH 4 TIMES A DAY (AFTER MEALS AND AT BEDTIME) / SHAKE WELL, FOR GERD DOSE = 10 ML, # 1,065 mL, 5 Refills, [facility], 26, TAKE 2 TEASPOONFULS BY MOUTH 4TIMES A DAY (AFTER MEALS AND AT BEDTIME) / SHAKE... Start Date: 09/18/21 Status: Orderedbacitracin zinc 500 units/g topical ointment See Instructions, APPLY A DIME SIZE AMOUNT TO SUPERFICIAL WOUNDS TWICE DAILY NEEDED ANTIBACTERIAL / CALL MD IF USING LONGER THAN 7 DAYS, # 28.4 Gm, 11 Refills, [facility], 10, APPLY A DIME SIZE AMOUNT TO SUPERFICIAL WOUNDS TWICE DAILY NE... Start Date: 08/18/21 Status: OrderedBenefiber oral powder for reconstitution 5 mL, By Mouth, 2 times a day, PRN as needed for constipation, # 155 Gm, 1 Refills, Maintenance, 03/30/20 13:47:00 EST, REC Powder, [facility], 5 mL By Mouth 2 times [...] tablet, Refills 5, Route to Pharmacy Electronically, [facility], 163, cm, 03/28/21 11:55:00 EST, Height Start Date: 08/04/21 Status: Orderedlubiprostone 24 mcg oral capsule 1 capsule = 24 mcg, By Mouth, 2 times a day, # 60 capsule, 0 Refills, Maintenance, 05/18/15 3:07:13,Capsule Start Date: 05/18/15 Status: OrderedMilk of Magnesia 8% oral suspension 30 mL, By Mouth, Daily at bedtime, FOR CONSTIPATION., # 900 mL, 5 Refills, [facility], 163, cm,10/13/20 9:36:00 EDT, Height Start Date: 10/17/20 Status: OrderedMilk of Magnesia 8% oral suspension See Instructions, TAKE 30 ML BY MOUTH DAILY AT BEDTIME FOR CONSTIPATION, # 900 mL, 5 Refills, [facility], 163, cm, 03/28/21 11:55:00 EST, Height Start [...] Gm, 5 Refills, Maintenance, 08/03/21 15:55:00 EDT, [facility], Take 1 capfull 2x daily, 163, cm, 03/28/21 11:55:00 EST, Height Start Date: 08/03/21 Status: Orderedpsyllium 3.4 gm/11 gm oral powder for reconstitution = 3.4 Gm, By Mouth, 2 times a day, PRN as needed for constipation, Reguloid dissolve in 8 oz of fluid, # 390 Gm, 5 Refills, Maintenance, 07/27/19 15:38:00 EDT, REC Powder, [facility], 163, cm, 03/10/19 14:39:00 EST, Height, [...] day, SIMETHICONE., # 30 mL, 10 Refills, [facility], 163, cm, 03/28/21 11:55:00 EST, Height [...] Active disorder)(Confirmed) Pica(Confirmed) Active Unsteady gait(Confirmed) Active [facility] [id number] 2011 normal, repeat 2021. Social History Social History Type Response Smoking Status Never smoker entered on: 07/22/15 Sex Male
--- OUTSIDE RECORDS SUMMARY | 2022-01-02 15:16 | XMS_ITS | Continuity of Care Document ---
:1955 Author Organization [facility] Adult Address [address] [place] [address]- Care Team Providers Name Role Phone Tomy Rangel MD Primary Care Physician Encounter [facility] Date(s): 12/05/20 - 01/04/21 [facility] [address] [place] [address]- Allergies, Adverse Reactions, Alerts Substance Reaction Severity [...] toxoids (Td) 11/16/99 Given 1Result Comment: [11/12/2016] [id number] Note: VIS: 09/28/083Admin Note: VIS 08/17/[id number] History: CENTER [id number] Note: VIS: 01/06/086Admin Note: VIS: 08/02/057Admin Note: [...] 10 ML, # 1,065 mL, 5 Refills, [facility], 26, TAKE 2 TEASPOONFULS BY MOUTH 4TIMES A DAY (AFTER MEALS AND AT BEDTIME) / SHAKE... Start Date: 10/17/20 Status: Orderedbacitracin zinc 500 units/g topical ointment 1 application, Topically, 3 times a day, PRN abrasion, # 454 Gm, 1 Refills, Maintenance, 07/14/20 7:38:00 EDT, Ointment, [facility], Partial fill upon patient request if the prescription is for a schedule II opioid drug., 1 application Topically... Start Date: 07/14/20 Status: OrderedBenefiber oral powder for reconstitution 5 mL, By Mouth, 2 times a day, PRN as needed for constipation, # 155 Gm, 1 Refills, Maintenance, 03/30/20 13:47:00 EST, REC Powder, [facility], 5 mL By Mouth 2 times [...] 07/29/20 11:03:00 EDT, Route to Pharmacy Electronically, [facility], 163, cm, 01/11/20 8:05:00 EST, Height Start Date: 07/29/20 Status: Orderedlubiprostone 24 mcg oral capsule 1 capsule = 24 mcg, By Mouth, 2 times a day, # 60 capsule, 0 Refills, Maintenance, 05/18/15 3:07:13,Capsule Start Date: 05/18/15 Status: OrderedMilk of Magnesia 8% oral suspension 30 mL, By Mouth, Daily at bedtime, FOR CONSTIPATION., # 900 mL, 5 Refills, [facility], 163, cm,10/13/20 9:36:00 EDT, Height Start [...] Gm, 11 Refills, Maintenance, 07/01/20 11:19:00 EDT, [facility], Take 1 capfull 2x daily, 163, cm, 01/11/20 8:05:00 EST, Height Start Date: 07/01/20 Status: Orderedpsyllium 3.4 gm/11 gm oral powder for reconstitution = 3.4 Gm, By Mouth, 2 times a day, PRN as needed for constipation, Reguloid dissolve in 8 oz of fluid, # 390 Gm, 5 Refills, Maintenance, 07/27/19 15:38:00 EDT, REC Powder, [facility], 163, cm, 03/10/19 14:39:00 EST, Height, [...] mL, 11 Refills, Acute, 07/25/20 13:38:00 EDT, [facility], 163, cm, 01/11/20 8:05:00 EST, Height [...] Active disorder)(Confirmed) Pica(Confirmed) Active Unsteady gait(Confirmed) Active [facility] [id number] 2011 normal, repeat 2021. Social History Social History Type Response Smoking Status Never smoker entered on: 07/22/15 Sex Male
--- OUTSIDE RECORDS SUMMARY | 2022-01-02 15:16 | XMS_ITS | Continuity of Care Document ---
:1955 Author Organization [facility] Address [address] [place] [address]- Care Team Providers Name Role Phone Claire TOWNSEND, Tomy Rosales Primary Care Physician Encounter [facility] Date(s): 03/30/21 - 04/29/21 [facility] [address] [place] [address]- Allergies, Adverse Reactions, Alerts Substance Reaction Severity [...] toxoids (Td) 11/16/99 Given 1Result Comment: [11/12/2016] [id number] Note: VIS: 09/28/083Admin Note: VIS 08/17/[id number] History: CENTER [id number] Note: VIS: 01/06/086Admin Note: VIS: 08/02/057Admin Note: [...] 10 ML, # 1,065 mL, 5 Refills, [facility], 26, TAKE 2 TEASPOONFULS BY MOUTH 4TIMES A DAY (AFTER MEALS AND AT BEDTIME) / SHAKE... Start Date: 03/30/21 Status: Orderedbacitracin zinc 500 units/g topical ointment 1 application, Topically, 3 times a day, PRN abrasion, # 454 Gm, 1 Refills, Maintenance, 07/14/20 7:38:00 EDT, Ointment, [facility], Partial fill upon patient request if the prescription is for a schedule II opioid drug., 1 application Topically... Start Date: 07/14/20 Status: OrderedBenefiber oral powder for reconstitution 5 mL, By Mouth, 2 times a day, PRN as needed for constipation, # 155 Gm, 1 Refills, Maintenance, 03/30/20 13:47:00 EST, REC Powder, [facility], 5 mL By Mouth 2 times [...] 200 MG, # 120 capsule, 5 Refills, [facility], 163, cm, 03/28/21 11:55:00 EST, Height [...] mL, 0 Refills, Maintenance, 11/18/19 14:25:00 EDT, [facility], 2 teasponn q 6 hour prn, [...] Replace Required Details, Route to Pharmacy Electronically, [facility], 163, cm, 10/13/20 9:36:00 EDT, Height Start Date: 02/02/21 Status: Orderedlubiprostone 24 mcg oral capsule 1 capsule = 24 mcg, By Mouth, 2 times a day, # 60 capsule, 0 Refills, Maintenance, 05/18/15 3:07:13,Capsule Start Date: 05/18/15 Status: OrderedMilk of Magnesia 8% oral suspension 30 mL, By Mouth, Daily at bedtime, FOR CONSTIPATION., # 900 mL, 5 Refills, [facility], 163, cm,10/13/20 9:36:00 EDT, Height Start [...] Refills, Maintenance, 07/27/19 15:38:00 EDT, REC Powder, [facility], 163, cm, 03/10/19 14:39:00 EST, Height, [...] day, SIMETHICONE., # 30 mL, 10 Refills, [facility], 163, cm, 10/13/20 9:36:00 EDT, Height [...] disorder)(Confirmed) Pica(Confirmed) Active Unsteady gait(Confirmed) Active 1B [id number] 2011 normal, repeat 2021. Social History Social History Type Response Smoking Status Never smoker entered on: 07/22/15 Sex Male
--- OUTSIDE RECORDS SUMMARY | 2022-01-02 15:16 | XMS_ITS | Continuity of Care Document ---
:1955 Author Organization [facility] Adult Address [address] [place] [address]- Care Team Providers Name Role Phone Tomy Rangel MD Primary Care Physician [facility]counter [facility] Date(s): 10/08/19 - 11/07/19 [facility] [address] [place] [address]- [facility] Allergies, Adverse Reactions, Alerts Substance Reaction [...] toxoids (Td) 11/16/99 Given 1Result Comment: [11/12/2016] [id number] Note: VIS: 09/28/083Admin Note: VIS 08/17/[id number] History: CENTER [id number] Note: VIS: 01/06/086Admin Note: VIS: 08/02/057Admin Note: [...] 5 Refills, Soft Stop, 05/22/19 13:20:00 EDT, [facility], TAKE 2 TEASPOONFULS BY MOUTH 3 TIMES A DAY AFTER CHAS... Start Date: 05/22/19 Status: Orderedbacitracin-polymyxin B topical 500 u-64457 u/gm ointment 1 applicator, Topically, 2 times a day, To affected area, # 30 Gm, 11 Refills, Maintenance, 05/20/2015:23:00 EDT, Ointment, [facility], 1 applicator Topically 2 times a day,Instr:To affected area, 163, cm, 03/10/19 14:39:00 EST, Height, 72, kg,... Start Date: 05/20/19 Status: OrderedBenefiber oral powder for reconstitution 5 mL, By Mouth, 2 times a day, PRN as needed for constipation, # 155 Gm, 1 Refills, Maintenance, 10/09/19 16:52:00 EDT, REC Powder, [facility], 5 mL By Mouth 2 times [...] 07/21/19 12:25:00 EDT, Route to Pharmacy Electronically, [facility], 163, cm, 03/10/19 14:39:00 EST, Height, [...] mL, 5 Refills, Maintenance, 09/25/19 9:36:00 EDT, [facility], 163, cm, 08/17/19 9:56:00 EDT, Height, [...] Refills, Maintenance, 07/27/19 15:38:00 EDT, REC Powder, [facility], 163, cm, 03/10/19 14:39:00 EST, Height, [...] disorder)(Confirmed) Pica(Confirmed) Active Unsteady gait(Confirmed) Active [facility] [id number] 2011 normal, repeat 2021. Social History Social History Type Response Smoking Status Never smoker entered on: 07/22/15 Sex
--- OUTSIDE RECORDS SUMMARY | 2022-01-02 15:16 | XMS_ITS | Continuity of Care Document ---
:1955 Author Organization [facility] Adult Address [address] [place] [address]- Care Team Providers Name Role Phone Claire TOWNSEND, Tomy Rosales Primary Care Physician [facility]counter [facility] Date(s): 03/09/20 - 04/08/20 [facility] [address] [place] [address]- Allergies, Adverse Reactions, Alerts Substance Reaction Severity [...] toxoids (Td) 11/16/99 Given 1Result Comment: [11/12/2016] [id number] Note: VIS: 09/28/083Admin Note: VIS 08/17/[id number] History: CENTER [id number] Note: VIS: dmin Note: VIS: 08/02/057Admin Note: [...] 5 Refills, Soft Stop, 11/27/19 10:25:00 EDT, [facility], TAKE 2 TEASPOONFULS BY MOUTH 3 TIMES A DAY AFTER CHAS... Start Date: 11/27/19 Status: Orderedbacitracin-polymyxin B topical 500 u-72831 u/gm ointment 1 applicator, Topically, 2 times a day, To affected area, # 30 Gm, 11 Refills, Maintenance, 05/20/2015:23:00 EDT, Ointment, [facility], 1 applicator Topically 2 times a day,Instr:To affected area, 163, cm, 03/10/19 14:39:00 EST, Height, 72, kg,... Start Date: 05/20/19 Status: OrderedBenefiber oral powder for reconstitution 5 mL, By Mouth, 2 times a day, PRN as needed for constipation, # 155 Gm, 1 Refills, Maintenance, 03/30/20 13:47:00 EST, REC Powder, [facility], 5 mL By Mouth 2 times [...] capsule, 5 Refills, Maintenance, 10/16/19 11:45:00 EDT, [facility], 163, cm, 08/17/19 9:56:00 EDT, Height, [...] mL, 0 Refills, Maintenance, 11/18/19 14:25:00 EDT, [facility], 2 teasponn q 6 hour prn, [...] 01/29/20 9:40:00 EST, Route to Pharmacy Electronically, [facility], 163, cm, 01/11/20 8:05:00 EST, Height, [...] mL, 5 Refills, Maintenance, 03/29/20 9:08:00 EST, [facility], 163, cm, 01/11/20 8:05:00 EST, Height, [...] daily, # 1,054 Gm, 1 Refills, Maintenance, 02/17/20 15:46:00 EST, [facility], Take 1 capfull 2x daily, 163, cm, 01/11/20 8:05:00 EST, Height, 72, kg, 04/13/18 8:58:00 EST, Dry Weight Start Date: 02/17/20 Status: Orderedpsyllium 3.4 gm/11 gm oral powder for reconstitution = 3.4 Gm, By Mouth, 2 times a day, PRN as needed for constipation, Reguloid dissolve in 8 oz of fluid, # 390 Gm, 5 Refills, Maintenance, 07/27/19 15:38:00 EDT, REC Powder, [facility], 163, cm, 03/10/19 14:39:00 EST, Height, [...] 0 Refills, Maintenance, 03/17/11 9:18:13 Start Date: 1/28/12 Status: OrderedZostavax subcutaneous injection 0.65 mL, Subcutaneous [...] Active disorder)(Confirmed) Pica(Confirmed) Active Unsteady gait(Confirmed) Active [facility] [id number] 2011 normal, repeat 2021. Social History Social History Type Response Smoking Status Never smoker entered on: 07/22/15 Sex
--- OUTSIDE RECORDS SUMMARY | 2022-01-02 15:16 | XMS_ITS | Continuity of Care Document ---
:1955 Author Organization [facility] Adult Address [address] [place] [address]- Care Team Providers Name Role Phone Claire TOWNSEND, Tomy Rosales Primary Care Physician [facility] Date[facility]): [facility]17[facility]21 - 11/16/21 [facility] [address] [place] [address]- Allergies, Adverse Reactions, Alerts Substance Reaction Severity [...] toxoids (Td) 11/16/99 Given 1Result Comment: [11/12/2016] [id number] Note: VIS: 09/28/083Admin Note: VIS 08/17/[id number] History: [facility] [id number] Note: VIS: 01/06/086Admin Note: VIS: 08/02/057Admin Note: VIS:08/02/05 Medications acetaminophen 325 mg oral tablet See Instructions, 2 TABS BY MOUTH EVERY 6 HRS FOR DISCOMFORT/PIEDRA/TEMP>101/UNSTEADI- NESS(HEAVY BREATHING)/MAPAP/CALL MD IF GIVING > 7 DAYS/IVTE=[id number] 8 TABS/DAY MAX/SEE ANCILLARY, # 120 tablet, Refills 1, Instructions Replace Required Details, Route to... Start Date: 08/24/21 Status: OrderedAcid Gone 95 mg-358 mg/15 mL oral suspension See Instructions, TAKE 2 TEASPOONFULS BY MOUTH 4 TIMES A DAY (AFTER MEALS AND AT BEDTIME) / SHAKE WELL, FOR GERD DOSE = 10 ML, # 1,065 mL, 5 Refills, [facility], 26, TAKE 2 TEASPOONFULS BY MOUTH 4TIMES A DAY (AFTER MEALS AND AT BEDTIME) / SHAKE... Start Date: 09/18/21 Status: Orderedbacitracin zinc 500 units/g topical ointment See Instructions, APPLY A DIME SIZE AMOUNT TO SUPERFICIAL WOUNDS TWICE DAILY NEEDED ANTIBACTERIAL / CALL MD IF USING LONGER THAN 7 DAYS, # 28.4 Gm, 11 Refills, [facility], 10, APPLY A DIME SIZE AMOUNT TO SUPERFICIAL WOUNDS TWICE DAILY NE... Start Date: 08/18/21 Status: OrderedBenefiber oral powder for reconstitution 5 mL, By Mouth, 2 times a day, PRN as needed for constipation, # 155 Gm, 1 Refills, Maintenance, 03/30/20 13:47:00 EST, REC Powder, [facility], 5 mL By Mouth 2 times [...] mL, 0 Refills, Maintenance, 11/18/19 14:25:00 EDT, [facility], 2 teasponn q 6 hour prn, [...] tablet, Refills 5, Route to Pharmacy Electronically, [facility], 163, cm, 03/28/21 11:55:00 EST, Height Start Date: 08/04/21 Status: Orderedlubiprostone 24 mcg oral capsule 1 capsule = 24 mcg, By Mouth, 2 times a day, # 60 capsule, 0 Refills, Maintenance, 05/18/15 3:07:13,Capsule Start Date: 05/18/15 Status: OrderedMilk of Magnesia 8% oral suspension 30 mL, By Mouth, Daily at bedtime, FOR CONSTIPATION., # 900 mL, 5 Refills, [facility], 163, cm,10/13/20 9:36:00 EDT, Height Start Date: 10/17/20 Status: OrderedMilk of Magnesia 8% oral suspension See Instructions, TAKE 30 ML BY MOUTH DAILY AT BEDTIME FOR CONSTIPATION, # 900 mL, 5 Refills, [facility], 163, cm, 03/28/21 11:55:00 EST, Height Start [...] Gm, 5 Refills, Maintenance, 08/03/21 15:55:00 EDT, [facility], Take 1 capfull 2x daily, 163, cm, 03/28/21 11:55:00 EST, Height Start Date: 08/03/21 Status: Orderedpsyllium 3.4 gm/11 gm oral powder for reconstitution = 3.4 Gm, By Mouth, 2 times a day, PRN as needed for constipation, Reguloid dissolve in 8 oz of fluid, # 390 Gm, 5 Refills, Maintenance, 07/27/19 15:38:00 EDT, REC Powder, [facility], 163, cm, 03/10/19 14:39:00 EST, Height, [...] day, SIMETHICONE., # 30 mL, 10 Refills, [facility], 163, cm, 03/28/21 11:55:00 EST, Height [...] Confirmed Active Unsteady gait Confirmed Active 1B [id number] 2011 normal, repeat 2021. Social History Social History Type Response Smoking Status Never smoker entered on: 07/22/15 Sex Male Patient Care team information PersonnelName: Claire TOWNSEND, Tomy Rosales Address: Address: [address] [place] [id number]
--- OUTSIDE RECORDS SUMMARY | 2022-01-02 15:16 | XMS_ITS | Continuity of Care Document ---
:[address] [facility] Adult Address [address] [place] [address]- Care Team Providers Name Role Phone Claire TOWNSEND, Tomy Rosales Primary Care Physician [facility]): 10/26/21 - 11/25/21 [facility] [address] [place] [address]- Attending Physician: Admtr, [id number] Admitting Physician: Admtr, [...] toxoids (Td) 11/16/99 Given 1Result Comment: [11/12/2016] [id number] Note: VIS: 09/28/083Admin Note: VIS [id number] History: [facility] [id number] Note: VIS: 01/06/086Admin Note: VIS: 08/02/057Admin Note: VIS:08/02/05 Medications acetaminophen 325 mg oral tablet See Instructions, 2 TABS BY MOUTH EVERY 6 HRS FOR DISCOMFORT/PIEDRA/TEMP>101/UNSTEADI- NESS(HEAVY BREATHING)/MAPAP/CALL MD IF GIVING > 7 DAYS/OOIG=056GY 8 TABS/DAY MAX/SEE ANCILLARY, # 120 tablet, Refills 1, Instructions Replace Required Details, Route to... Start Date: 08/24/21 Status: OrderedAcid Gone 95 mg-358 mg/15 mL oral suspension See Instructions, TAKE 2 TEASPOONFULS BY MOUTH 4 TIMES A DAY (AFTER MEALS AND AT BEDTIME) / SHAKE WELL, FOR GERD DOSE = 10 ML, # 1,065 mL, 5 Refills, [facility], 26, TAKE 2 TEASPOONFULS BY MOUTH 4TIMES A DAY (AFTER MEALS AND AT BEDTIME) / SHAKE... Start Date: 09/18/21 Status: Orderedbacitracin zinc 500 units/g topical ointment See Instructions, APPLY A DIME SIZE AMOUNT TO SUPERFICIAL WOUNDS TWICE DAILY NEEDED ANTIBACTERIAL / CALL MD IF USING LONGER THAN 7 DAYS, # 28.4 Gm, 11 Refills, [facility], 10, APPLY A DIME SIZE AMOUNT TO SUPERFICIAL WOUNDS TWICE DAILY NE... Start Date: 08/18/21 Status: OrderedBenefiber oral powder for reconstitution 5 mL, By Mouth, 2 times a day, PRN as needed for constipation, # 155 Gm, 1 Refills, Maintenance, 03/30/20 13:47:00 EST, REC Powder, [facility], 5 mL By Mouth 2 times [...] capsule, 1 Refills, Maintenance, 10/13/21 14:13:00 EDT, [facility], 163, cm, 08/25/21 11:00:00 EDT, Height [...] mL, 0 Refills, Maintenance, 11/18/19 14:25:00 EDT, [facility], 2 teasponn q 6 hour prn, [...] tablet, Refills 5, Route to Pharmacy Electronically, [facility], 163, cm, 03/28/21 11:55:00 EST, Height Start Date: 08/04/21 Status: Orderedlubiprostone 24 mcg oral capsule 1 capsule = 24 mcg, By Mouth, 2 times a day, # 60 capsule, 0 Refills, Maintenance, 05/18/15 3:07:13,Capsule Start Date: 05/18/15 Status: OrderedMilk of Magnesia 8% oral suspension 30 mL, By Mouth, Daily at bedtime, FOR CONSTIPATION., # 900 mL, 5 Refills, [facility], 163, cm,10/13/20 9:36:00 EDT, Height Start Date: 10/17/20 Status: OrderedMilk of Magnesia 8% oral suspension See Instructions, TAKE 30 ML BY MOUTH DAILY AT BEDTIME FOR CONSTIPATION, # 900 mL, 5 [facility], [facility], 03/28/21 11:55:00 EST, Height Start [...] Refills, Maintenance, 07/27/19 15:38:00 EDT, REC Powder, [facility], 163, cm, 03/10/19 14:39:00 EST, Height, [...] day, SIMETHICONE., # 30 mL, 10 Refills, [facility], 163, cm, 03/28/21 11:55:00 EST, Height [...] Confirmed Active Unsteady gait Confirmed Active 1B [id number] 2011 normal, repeat 2021. Social History Social History Type Response Smoking Status Never smoker entered on: 07/22/15 Sex Male Patient Care team information PersonnelName: Claire TOWNSEND, Tomy Rosales Address: Address: [address] [place] [id number]
--- OUTSIDE RECORDS SUMMARY | 2022-01-02 15:16 | XMS_ITS | Continuity of Care Document ---
:1955 Author Organization [facility] Adult Address [address] [place] [address]- Care Team Providers Name Role Phone Claire TOWNSEND, Tomy Rosales Primary Care Physician [facility] Date[facility]s): 08/04/21 - 09/03/21 [facility] [address] [place] [address]- Allergies, Adverse Reactions, Alerts Substance Reaction Severity [...] toxoids (Td) 11/16/99 Given 1Result Comment: [11/12/2016] [id number] Note: VIS: 09/28/083Admin Note: VIS 08/17/[id number] History: [facility] [id number] Note: VIS: 01/06/086Admin Note: VIS: 08/02/057Admin Note: VIS:08/02/05 Medications acetaminophen 325 mg oral tablet See Instructions, 2 TABS BY MOUTH EVERY 6 HRS FOR DISCOMFORT/PIEDRA/TEMP>101/UNSTEADI- NESS(HEAVY BREATHING)/MAPAP/CALL MD IF GIVING > 7 DAYS/HJYX=809DN 8 TABS/DAY MAX/SEE ANCILLARY, # 120 tablet, Refills 1, Instructions Replace Required Details, Route to... Start Date: 08/24/21 Status: OrderedAcid Gone 95 mg-358 mg/15 mL oral suspension See Instructions, TAKE 2 TEASPOONFULS BY MOUTH 4 TIMES A DAY (AFTER MEALS AND AT BEDTIME) / SHAKE WELL, FOR GERD DOSE = 10 ML, # 1,065 mL, 5 Refills, [facility], 26, TAKE 2 TEASPOONFULS BY MOUTH 4TIMES A DAY (AFTER MEALS AND AT BEDTIME) / SHAKE... Start Date: 03/30/21 Status: Orderedbacitracin zinc 500 units/g topical ointment See Instructions, APPLY A DIME SIZE AMOUNT TO SUPERFICIAL WOUNDS TWICE DAILY NEEDED ANTIBACTERIAL / CALL MD IF USING LONGER THAN 7 DAYS, # 28.4 Gm, 11 Refills, [facility], 10, APPLY A DIME SIZE AMOUNT TO SUPERFICIAL WOUNDS TWICE DAILY NE... Start Date: 08/18/21 Status: OrderedBenefiber oral powder for reconstitution 5 mL, By Mouth, 2 times a day, PRN as needed for constipation, # 155 Gm, 1 Refills, Maintenance, 03/30/20 13:47:00 EST, REC Powder, [facility], 5 mL By Mouth 2 times [...] tablet, Refills 5, Route to Pharmacy Electronically, [facility], 163, cm, 03/28/21 11:55:00 EST, Height Start Date: 08/04/21 Status: Orderedlubiprostone 24 mcg oral capsule 1 capsule = 24 mcg, By Mouth, 2 times a day, # 60 capsule, 0 Refills, Maintenance, 05/18/15 3:07:13,Capsule Start Date: 05/18/15 Status: OrderedMilk of Magnesia 8% oral suspension 30 mL, By Mouth, Daily at bedtime, FOR CONSTIPATION., # 900 mL, 5 Refills, [facility], 163, cm,10/13/20 9:36:00 EDT, Height Start Date: 10/17/20 Status: OrderedMilk of Magnesia 8% oral suspension See Instructions, TAKE 30 ML BY MOUTH DAILY AT BEDTIME FOR CONSTIPATION, # 900 mL, 5 Refills, [facility], 163, cm, 03/28/21 11:55:00 EST, Height Start [...] Gm, 5 Refills, Maintenance, 08/03/21 15:55:00 EDT, [facility], Take 1 capfull 2x daily, 163, cm, 03/28/21 11:55:00 EST, Height Start Date: 08/03/21 Status: Orderedpsyllium 3.4 gm/11 gm oral powder for reconstitution = 3.4 Gm, By Mouth, 2 times a day, PRN as needed for constipation, Reguloid dissolve in 8 oz of fluid, # 390 Gm, 5 Refills, Maintenance, 07/27/19 15:38:00 EDT, REC Powder, [facility], 163, cm, 03/10/19 14:39:00 EST, Height, [...] day, SIMETHICONE., # 30 mL, 10 Refills, [facility], 163, cm, 03/28/21 11:55:00 EST, Height [...] Active disorder)(Confirmed) Pica(Confirmed) Active Unsteady gait(Confirmed) Active [facility] [id number] 2011 normal, repeat 2021. Social History Social History Type Response Smoking Status Never smoker entered on: 07/22/15 Sex Male
--- OUTSIDE RECORDS SUMMARY | 2022-01-02 15:16 | XMS_ITS | Continuity of Care Document ---
:1955 Author Organization [facility] Adult Address [address] [place] [address]- Care Team Providers Name Role Phone Tomy Rangel MD Primary Care Physician [facility] 02/17/19 - 02/24/19 [facility] [address] [place] [address]- [facility] Encounter Diagnosis Laura rash of groin (Discharge Diagnosis) - 02/17/19 Unsteady gait (Discharge Diagnosis) - 02/17/19 Vomiting (Discharge Diagnosis) - 02/17/19 Attending Physician: Not on Staff, Attending MD Allergies, Adverse Reactions, Alerts Substance Reaction Severity Status metoclopramide Active Haldol unknown Active Reglan unknown Active Immunizations Given and Recorded Vaccine Date Status Refusal Reason influenza virus vaccine, inactivated 12/19/17 Given influenza [...] toxoids (Td) 11/16/99 Given 1Result Comment: [11/12/2016] [id number] Note: VIS: dmin Note: VIS [id number] History: [place] [id number] Note: VIS: dmin Note: VIS: 08/02/057Admin Note: [...] mg-358 mg/15 mL oral suspension See Instructions, # 1,065 mL, Refills 5 Tot. Refills 5, TAKE 2 TEASPOONFULS BY MOUTH 3 TIMES A DAY AFTER MEALS AND AT BEDTIME / SHAKE WELL, FOR GERD DOSE = 10 ML, [facility] Start Date: 12/15/18 Status: Orderedbacitracin-polymyxin B topical 500 u-36129 u/gm ointment 1 applicator, Topically, 2 times a day, To affected area, # 30 Gm, 11 Refills, Maintenance, 07/19/1812:19:51 EDT, Ointment, 1 applicator Topically 2 times a day,Instr:To affected area Start Date: 07/19/17 Status: Orderedcitalopram 20 mg oral tablet 3 tablets, By Mouth, Daily, # 30 tablet, Refills 0, Maintenance, 05/02/15 8:18:23 Start Date: 05/02/15 Stop Date: 06/01/15 Status: Ordereddocusate sodium 100 mg oral capsule See Instructions, TAKE 2 CAPSULES BY MOUTH TWICE DAILY FOR CONSTIPATION DOSE = 200 MG, # 120 capsule, Refills 1, Tot. Refills 1, Soft Stop, 12/09/18 16:00:29 EDT, Instructions Replace Required Details,Route to Pharmacy Electronically, [id number]... Start Date: 12/09/18 Status: OrderedDysphagia consultation Dysphagia consultation, See Instructions, [...] 01/23/19 12:47:33 EST, Route to Pharmacy Electronically, [id number], [facility], 163, cm, 10/24/18 14:23:34 EDT, Height, [...] bedtime, # 900 mL, 5 Refills, Maintenance, 10/28/18 15:27:00 EDT Start Date: 10/28/18 Status: Orderednystatin topical 029837 u/gm powder See Instructions, APPLY TO GROIN AREA BID X 7 DAYS., # 30 Gm, 0 Refills, Acute 03/20/19 7:00:00 EST,02/17/19 9:04:00 EST, Powder, [facility], APPLY TO GROIN AREA BID X 7 DAYS., 163, cm, 02/17/19 8:44:00 EST, Height, 72, kg, 04/13/18 8:58:00 EST,... Start Date: 02/17/19 Stop Date: 03/20/19 Status: Orderedomeprazole 40 mg oral enteric coated [...] fluid, # 390 Gm, 1 Refills, Maintenance, 01/01/19 12:31:30 EST, [facility] Start Date: 01/01/19 Status: OrderedReguloid 3.4 gm/11 gm oral powder [...] by pharmacy Start Date: 07/29/17 Status: Orderedsimethicone 40 mg/0.6 mL oral liquid 0.6 mL = 40 mg, By Mouth, 3 times a day, # 30 mL, 11 Refills, Maintenance, 09/16/18 16:04:49 EDT, Liquid Start Date: 09/16/18 Status: OrderedTussin DM 10 mg-100 mg/5 ml [...] Stop, 07/22/15 9:52:26 Start Date: 07/22/15 Status: OrderedZyprexa 10 mg oral tablet 1 tablet, By Mouth, Daily in AM, # 30 tablet, 0 Refills, Soft Stop, 11/18/08 10:19:53 Start Date: 11/18/08 Stop Date: 12/18/08 Status: OrderedZyprexa 20 mg oral tablet 20 mg, 1, tablet, By Mouth, Daily at bedtime, # 30 tablet, Maintenance Start Date: 06/10/08 Stop Date: 07/10/08 Status: Ordered Problem List Condition Effective Dates Status Health Status Informant Bipolar disorder(Confirmed) Active Dysphagia(Confirmed) Active History of small bowel Active obstruction(Confirmed)1 H/O colonoscopy(Confirmed)2 Active Hydrocele, left(Confirmed) Active Hypercholesterolemia(Confirmed) Active Hypertension(Confirmed) Active Intention tremor(Confirmed) Active OCD (obsessive compulsive Active disorder)(Confirmed) Pica(Confirmed) Active Unsteady gait(Confirmed) Active [facility] [id number] 2011 normal, repeat 2021. Diagnosis Diagnosis Type Effective Dates Health Status Clinical In formant Service Laura rash of Discharge 02/17/19 groin Diagnosis Unsteady gait Discharge 02/17/19 Diagnosis Vomiting Discharge 02/17/19 Diagnosis Vital Signs Most recent to oldest [Reference Range]: 1 Height 163 cm (02/17/19 8:44 AM) Oxygen Saturation [94-100 %] 90 % *L* (02/17/19 8:44 AM) Pulse Rate [55-90 bpm] 94 bpm *H* (02/17/19 8:44 AM) Blood Pressure [90-138/55-84 mm Hg] 90/60 mm Hg (02/17/19 8:44 AM) Blood pressure sites Arm, right (02/17/19 8:44 AM) Social History Social History Type Response Smoking Status Never smoker entered on: 07/22/15 Sex
--- OUTSIDE RECORDS SUMMARY | 2022-01-02 15:16 | XMS_ITS | Continuity of Care Document ---
:1955 Author Organization [facility] Adult Address [address] [place] [address]- Care Team Providers Name Role Phone Claire TOWNSEND, Tomy Rosales Primary Care Physician [facility] Date[facility]s): 02/21/21 - 03/23/21 [facility] [address] [place] [address]- Allergies, Adverse Reactions, Alerts Substance Reaction Severity [...] toxoids (Td) 11/16/99 Given 1Result Comment: [11/12/2016] [id number] Note: VIS: 09/28/083Admin Note: VIS [id number] History: [facility] [id number] Note: VIS: dmin Note: VIS: 08/02/057Admin Note: [...] 10 ML, # 1,065 mL, 5 Refills, [facility], 26, TAKE 2 TEASPOONFULS BY MOUTH 4TIMES A DAY (AFTER MEALS AND AT BEDTIME) / SHAKE... Start Date: 10/17/20 Status: Orderedbacitracin zinc 500 units/g topical ointment 1 application, Topically, 3 times a day, PRN abrasion, # 454 Gm, 1 Refills, Maintenance, 07/14/20 7:38:00 EDT, Ointment, [facility], Partial fill upon patient request if the prescription is for a schedule II opioid drug., 1 application Topically... Start Date: 07/14/20 Status: OrderedBenefiber oral powder for reconstitution 5 mL, By Mouth, 2 times a day, PRN as needed for constipation, # 155 Gm, 1 Refills, Maintenance, 03/30/20 13:47:00 EST, REC Powder, [facility], 5 mL By Mouth 2 times [...] Replace Required Details, Route to Pharmacy Electronically, [facility], 163, cm, 10/13/20 9:36:00 EDT, Height Start Date: 02/02/21 Status: Orderedlubiprostone 24 mcg oral capsule 1 capsule = 24 mcg, By Mouth, 2 times a day, # 60 capsule, 0 Refills, Maintenance, 05/18/15 3:07:13,Capsule Start Date: 05/18/15 Status: OrderedMilk of Magnesia 8% oral suspension 30 mL, By Mouth, Daily at bedtime, FOR CONSTIPATION., # 900 mL, 5 Refills, [facility], 163, cm,10/13/20 9:36:00 EDT, Height Start [...] daily, # 1,054 Gm, 11 Refills, Maintenance, 05/14/21 11:19:00 EDT, [facility], Take 1 capfull 2x daily, 163, cm, 01/11/20 8:05:00 EST, Height Start Date: 07/01/20 Status: Orderedpsyllium 3.4 gm/11 gm oral powder for reconstitution = 3.4 Gm, By Mouth, 2 times a day, PRN as needed for constipation, Reguloid dissolve in 8 oz of fluid, # 390 Gm, 5 Refills, Maintenance, 07/27/19 15:38:00 EDT, REC Powder, [facility], 163, cm, 03/10/19 14:39:00 EST, Height, [...] day, SIMETHICONE., # 30 mL, 10 Refills, [facility], 163, cm, 10/13/20 9:36:00 EDT, Height [...] disorder)(Confirmed) Pica(Confirmed) Active Unsteady gait(Confirmed) Active [facility]B 70681Xnhfklbcjrb 2011 normal, repeat 2021. Social History Social History Type Response Smoking Status Never smoker entered on: 07/22/15 Sex Male
--- OUTSIDE RECORDS SUMMARY | 2022-01-02 15:16 | XMS_ITS | Continuity of Care Document ---
:1955 Author Organization [facility] Adult Address [address] [place] [address]- Care Team Providers Name Role Phone Tomy Rangel MD Primary Care Physician Encounter [facility] Date(s): 08/25/21 - 09/01/21 [facility] [address] [place] [address]- Encounter Diagnosis Anemia (Discharge Diagnosis) - 08/25/21 History of BPH (Discharge Diagnosis) - 08/25/21 Aspiration pneumonia (Discharge Diagnosis) - 08/25/21 Mental retardation (Discharge Diagnosis) - 08/25/21 Attending Physician: Tomy Rangel MD Allergies, Adverse [...] toxoids (Td) 11/16/99 Given 1Result Comment: [11/12/2016] [id number] Note: VIS: 09/28/083Admin Note: VIS 08/17/[id number] History: [facility] [id number] Note: VIS: 01/06/086Admin Note: VIS: 08/02/057Admin Note: VIS:08/02/05 Medications acetaminophen 325 mg oral tablet See Instructions, 2 TABS BY MOUTH EVERY 6 HRS FOR DISCOMFORT/PIEDRA/TEMP>101/UNSTEADI- NESS(HEAVY BREATHING)/MAPAP/CALL MD IF GIVING > 7 DAYS/GCDG=354SD 8 TABS/DAY MAX/SEE ANCILLARY, # 120 tablet, Refills 1, Instructions Replace Required Details, Route to... Start Date: 08/24/21 Status: OrderedAcid Gone 95 mg-358 mg/15 mL oral suspension See Instructions, TAKE 2 TEASPOONFULS BY MOUTH 4 TIMES A DAY (AFTER MEALS AND AT BEDTIME) / SHAKE WELL, FOR GERD DOSE = 10 ML, # 1,065 mL, 5 Refills, [facility], 26, TAKE 2 TEASPOONFULS BY MOUTH 4TIMES A DAY (AFTER MEALS AND AT BEDTIME) / SHAKE... Start Date: 03/30/21 Status: Orderedbacitracin zinc 500 units/g topical ointment See Instructions, APPLY A DIME SIZE AMOUNT TO SUPERFICIAL WOUNDS TWICE DAILY NEEDED ANTIBACTERIAL / CALL MD IF USING LONGER THAN 7 DAYS, # 28.4 Gm, 11 Refills, [facility], 10, APPLY A DIME SIZE AMOUNT TO SUPERFICIAL WOUNDS TWICE DAILY NE... Start Date: 08/18/21 Status: OrderedBenefiber oral powder for reconstitution 5 mL, By Mouth, 2 times a day, PRN as needed for constipation, # 155 Gm, 1 Refills, Maintenance, 03/30/20 13:47:00 EST, REC Powder, [facility], 5 mL By Mouth 2 times [...] 200 MG, # 120 capsule, 5 Refills, [facility], 163, cm, 03/28/21 11:55:00 EST, Height [...] mL, 0 Refills, Maintenance, 11/18/19 14:25:00 EDT, [facility], 2 teasponn q 6 hour prn, [...] tablet, Refills 5, Route to Pharmacy Electronically, [facility], 163, cm, 03/28/21 11:55:00 EST, Height Start Date: 08/04/21 Status: Orderedlubiprostone 24 mcg oral capsule 1 capsule = 24 mcg, By Mouth, 2 times a day, # 60 capsule, 0 Refills, Maintenance, 05/18/15 3:07:13,Capsule Start Date: 05/18/15 Status: OrderedMilk of Magnesia 8% oral suspension 30 mL, By Mouth, Daily at bedtime, FOR CONSTIPATION., # 900 mL, 5 Refills, [facility], 163, cm,10/13/20 9:36:00 EDT, Height Start Date: 10/17/20 Status: OrderedMilk of Magnesia 8% oral suspension See Instructions, TAKE 30 ML BY MOUTH DAILY AT BEDTIME FOR CONSTIPATION, # 900 mL, 5 Refills, [facility], 163, cm, 03/28/21 11:55:00 EST, Height Start [...] Gm, 5 Refills, Maintenance, 08/03/21 15:55:00 EDT, [facility], Take 1 capfull 2x daily, 163, cm, 03/28/21 11:55:00 EST, Height Start Date: 08/03/21 Status: Orderedpsyllium 3.4 gm/11 gm oral powder for reconstitution = 3.4 Gm, By Mouth, 2 times a day, PRN as needed for constipation, Reguloid dissolve in 8 oz of fluid, # 390 Gm, 5 Refills, Maintenance, 07/27/19 15:38:00 EDT, REC Powder, [facility], 163, cm, 03/10/19 14:39:00 EST, Height, [...] day, SIMETHICONE., # 30 mL, 10 Refills, [facility], 163, cm, 03/28/21 11:55:00 [...] Active Unsteady gait(Confirmed) Active [facility] [id number] 2011 normal, repeat 2021. Diagnosis Diagnosis Type Effective Dates Health Clinical Infor mant Status Service Anemia Discharge 08/25/21 Diagnosis History of BPH Discharge 08/25/21 Diagnosis Aspiration Discharge 08/25/21 pneumonia Diagnosis Mental retardation Discharge 08/25/21 Diagnosis Vital Signs Most recent to oldest [Reference Range]: 1 Height 163 cm (08/25/21 11:00 AM) Pulse Rate [55-90 bpm] 68 bpm (08/25/21 11:00 AM) Blood Pressure [90-138/55-84 mm Hg] 112/62 mm Hg (08/25/21 11:00 AM) Respiratory Rate [16-30 br/min] 14 br/min *L* (08/25/21 11:00 AM) Mode of Delivery (Oxygen) Room air (08/25/21 11:00 AM) Blood pressure sites Arm, left (08/25/21 11:00 AM) Temperature Route Oral (08/25/21 11:00 AM) Social History Social History Type Response Smoking Status Never smoker entered on: 07/22/15 Sex Male
--- OUTSIDE RECORDS SUMMARY | 2022-01-02 15:16 | XMS_ITS | Continuity of Care Document ---
:1955 Author Organization [facility] Adult Address [address] [place] [address]- Care Team Providers Name Role Phone Tomy Rangel MD Primary Care Physician Encounter [facility] Date(s): 06/10/19 - 07/10/19 [facility] Adult [address] [place] [address]- [facility] Attending Physician: Admtr, [id number] Admitting Physician: Admtr, [...] toxoids (Td) 11/16/99 Given 1Result Comment: [11/12/2016] [id number] Note: VIS: 09/28/083Admin Note: VIS [id number] History: CENTER [id number] Note: VIS: dmin Note: VIS: 08/02/057Admin Note: [...] 5 Refills, Soft Stop, 05/22/19 13:20:00 EDT, [facility], TAKE 2 TEASPOONFULS BY MOUTH 3 TIMES A DAY AFTER CHAS... Start Date: 05/22/19 Status: OrderedAugmentin 875 mg-125 mg oral tablet 1 tablet, By Mouth, Every 12 hours, for 10 days, # 20 tablet, 0 Refills, Acute 07/13/19 16:42:00 EDT, 07/03/19 16:42:00 EDT, Tablet, [facility], 163, cm, 03/10/19 14:39:00 EST, Height, 72, kg, 04/13/18 8:58:00 EST, Dry Weight Start Date: 07/03/19 Stop Date: 07/13/19 Status: Orderedbacitracin-polymyxin B topical 500 u-87455 u/gm ointment 1 applicator, Topically, 2 times a day, To affected area, # 30 Gm, 11 Refills, Maintenance, 05/20/2015:23:00 EDT, Ointment, [facility], 1 applicator Topically 2 times a [...] capsule, 5 Refills, Maintenance, 05/20/19 14:13:00 EDT, [facility], 163, cm, 03/10/19 14:39:00 EST, Height, [...] mL, 11 Refills, Acute, 05/27/19 14:04:00 EDT, [facility], 163, cm, 03/10/19 14:39:00 EST, Height, 72, kg, 04/13/18 8:58:00 EST, Dry Weight Start Date: 05/27/19 Status: Orderedloratadine 10 mg oral tablet 10 mg, 1, tablet, By Mouth, Daily, # 30 tablet, Refills 5, Tot. Refills 5, 01/23/19 12:47:33 EST, Route to Pharmacy Electronically, [id number], [facility], 163, cm, 10/24/18 14:23:34 EDT, Height, [...] mL, 5 Refills, Maintenance, 03/13/19 8:18:00 EST, [facility], 163, cm, 03/10/19 14:39:00 EST, Height, [...] Refills, Maintenance, 03/27/19 14:22:00 EST, REC Powder, [facility], Please remind pt. ask for additional [...] [facility] [id number] 2011 normal, repeat 2021. Social History Social History Type Response Smoking Status Never smoker entered on: 07/22/15 Sex
--- OUTSIDE RECORDS SUMMARY | 2022-01-02 15:16 | XMS_ITS | Continuity of Care Document ---
:[address] [facility] Adult Address [address] [place] [address]- Care Team Providers Name Role Phone Tomy Rangel MD Primary Care Physician Encounter [facility] Date(s): 08/24/20 - 09/23/20 [facility] Adult [address] [place] [address]- Allergies, Adverse Reactions, Alerts Substance Reaction Severity [...] toxoids (Td) 11/16/99 Given 1Result Comment: [11/12/2016] [id number] Note: VIS: 09/28/083Admin Note: VIS 08/17/[id number] History: CENTER [id number] Note: VIS: 01/06/086Admin Note: VIS: 08/02/057Admin Note: [...] 5 Refills, Soft Stop, 04/25/20 7:36:00 EST, [facility], TAKE 2 TEASPOONFULS BY MOUTH 3 TIMES A DAY AFTER MEAL... Start Date: 04/25/20 Status: Orderedbacitracin zinc 500 units/g topical ointment 1 application, Topically, 3 times a day, PRN abrasion, # 454 Gm, 1 Refills, Maintenance, 07/14/20 7:38:00 EDT, Ointment, [facility], Partial fill upon patient request if the prescription is for a schedule II opioid drug., 1 application Topically... Start Date: 07/14/20 Status: OrderedBenefiber oral powder for reconstitution 5 mL, By Mouth, 2 times a day, PRN as needed for constipation, # 155 Gm, 1 Refills, Maintenance, 03/30/20 13:47:00 EST, REC Powder, [facility], 5 mL By Mouth 2 times [...] capsule, 5 Refills, Maintenance, 05/12/20 10:52:00 EDT, [facility], 163, cm, 01/11/20 8:05:00 EST, Height [...] mL, 0 Refills, Maintenance, 11/18/19 14:25:00 EDT, [facility], 2 teasponn q 6 hour prn, [...] 07/29/20 11:03:00 EDT, Route to Pharmacy Electronically, [facility], 163, cm, 01/11/20 8:05:00 EST, Height [...] Refills, Maintenance, 07/27/19 15:38:00 EDT, REC Powder, [facility], 163, cm, 03/10/19 14:39:00 EST, Height, [...] disorder)(Confirmed) Pica(Confirmed) Active Unsteady gait(Confirmed) Active [facility] 50428Uqavheirftc 2011 normal, repeat 2021. Social History Social History Type Response Smoking Status Never smoker entered on: 07/22/15 Sex
--- OUTSIDE RECORDS SUMMARY | 2022-01-02 15:16 | XMS_ITS | Continuity of Care Document ---
:1955 Author Organization [facility] Adult Address [address] [place] [address]- Care Team Providers Name Role Phone Tomy Rangel MD Primary Care Physician [facility] Date(s): 09/25/19 - 10/25/19 [facility] Adult [address] [place] [address]- [facility] Allergies, Adverse Reactions, Alerts Substance Reaction [...] toxoids (Td) 11/16/99 Given 1Result Comment: [11/12/2016] [id number] Note: VIS: 09/28/083Admin Note: VIS 08/17/[id number] History: CENTER [id number] Note: VIS: 01/06/086Admin Note: VIS: 08/02/057Admin Note: [...] 5 Refills, Soft Stop, 05/22/19 13:20:00 EDT, [facility], TAKE 2 TEASPOONFULS BY MOUTH 3 TIMES A DAY AFTER CHAS... Start Date: 05/22/19 Status: Orderedbacitracin-polymyxin B topical 500 u-79963 u/gm ointment 1 applicator, Topically, 2 times a day, To affected area, # 30 Gm, 11 Refills, Maintenance, 05/20/2015:23:00 EDT, Ointment, [facility], 1 applicator Topically 2 times a day,Instr:To affected area, 163, cm, 03/10/19 14:39:00 EST, Height, 72, kg,... Start Date: 05/20/19 Status: OrderedBenefiber oral powder for reconstitution 5 mL, By Mouth, 2 times a day, PRN as needed for constipation, # 155 Gm, 1 Refills, Maintenance, 10/09/19 16:52:00 EDT, REC Powder, [facility], 5 mL By Mouth 2 times [...] 07/21/19 12:25:00 EDT, Route to Pharmacy Electronically, [facility], 163, cm, 03/10/19 14:39:00 EST, Height, [...] mL, 5 Refills, Maintenance, 09/25/19 9:36:00 EDT, [facility], 163, cm, 08/17/19 9:56:00 EDT, Height, [...] Refills, Maintenance, 07/27/19 15:38:00 EDT, REC Powder, [facility], 163, cm, 03/10/19 14:39:00 EST, Height, [...] disorder)(Confirmed) Pica(Confirmed) Active Unsteady gait(Confirmed) Active [facility] [address]08Fuxgozwymvf 2011 normal, repeat 2021. Social History Social History Type Response Smoking Status Never smoker entered on: 07/22/15 Sex
--- OUTSIDE RECORDS SUMMARY | 2022-01-02 15:16 | XMS_ITS | Continuity of Care Document ---
:1955 Author Organization [facility] Adult Address [address] [place] [address]- Care Team Providers Name Role Phone Tomy Rangel MD Primary Care Physician [facility]counter [facility] Date(s): 08/23/19 - 09/22/19 [facility] Adult [address] [place] [address]- [facility] Allergies, Adverse Reactions, Alerts Substance [...] toxoids (Td) 11/16/99 Given 1Result Comment: [11/12/2016] [id number] Note: VIS: 09/28/083Admin Note: VIS 08/17/[id number] History: CENTER [id number] Note: VIS: 01/06/086Admin Note: VIS: 08/02/057Admin Note: [...] 5 Refills, Soft Stop, 05/22/19 13:20:00 EDT, [facility], TAKE 2 TEASPOONFULS BY MOUTH 3 TIMES A DAY AFTER CHAS... Start Date: 05/22/19 Status: Orderedbacitracin-polymyxin B topical 500 u-35982 u/gm ointment 1 applicator, Topically, 2 times a day, To affected area, # 30 Gm, 11 Refills, Maintenance, 05/20/2015:23:00 EDT, Ointment, [facility], 1 applicator Topically 2 times a [...] capsule, 5 Refills, Maintenance, 05/20/19 14:13:00 EDT, [facility], 163, cm, 03/10/19 14:39:00 EST, Height, [...] mL, 0 Refills, Maintenance, 09/02/19 15:56:00 EDT, [facility], 2 teasponn q 6 hour prn, [...] mL, 11 Refills, Acute, 05/27/19 14:04:00 EDT, [facility], 163, cm, 03/10/19 14:39:00 EST, Height, 72, kg, 04/13/18 8:58:00 EST, Dry Weight Start Date: 05/27/19 Status: Orderedloratadine 10 mg oral tablet 10 mg, 1, tablet, By Mouth, Daily, # 30 tablet, Refills 5, Tot. Refills 5, 07/21/19 12:25:00 EDT, Route to Pharmacy Electronically, [facility], 163, cm, 03/10/19 14:39:00 EST, Height, [...] Active disorder)(Confirmed) Pica(Confirmed) Active Unsteady gait(Confirmed) Active [facility] [id number] 2011 normal, repeat 2021. Social History Social History Type Response Smoking Status Never smoker entered on: 07/22/15 Sex
--- OUTSIDE RECORDS SUMMARY | 2022-01-02 15:17 | XMS_ITS | Continuity of Care Document ---
:1955 Author Organization [facility] Adult Address [address] [place] [address]- Care Team Providers Name Role Phone Claire TOWNSEND, Tomy Rosales Primary Care Physician [facility] Date(s): 09/14/21 - 10/14/21 [facility] Adult [address] [place] [address]- Allergies, Adverse Reactions, Alerts Substance Reaction Severity [...] toxoids (Td) 11/16/99 Given 1Result Comment: [11/12/2016] [id number] Note: VIS: 09/28/083Admin Note: VIS 08/17/[id number] History: CENTER [id number] Note: VIS: 01/06/086Admin Note: VIS: 08/02/057Admin Note: VIS:08/02/05 Medications acetaminophen 325 mg oral tablet See Instructions, 2 TABS BY MOUTH EVERY 6 HRS FOR DISCOMFORT/PIEDRA/TEMP>101/UNSTEADI- NESS(HEAVY BREATHING)/MAPAP/CALL MD IF GIVING > 7 DAYS/DDQW=407XT 8 TABS/DAY MAX/SEE ANCILLARY, # 120 tablet, Refills 1, Instructions Replace Required Details, Route to... Start Date: 08/24/21 Status: OrderedAcid Gone 95 mg-358 mg/15 mL oral suspension See Instructions, TAKE 2 TEASPOONFULS BY MOUTH 4 TIMES A DAY (AFTER MEALS AND AT BEDTIME) / SHAKE WELL, FOR GERD DOSE = 10 ML, # 1,065 mL, 5 Refills, [facility], 26, TAKE 2 TEASPOONFULS BY MOUTH 4TIMES A DAY (AFTER MEALS AND AT BEDTIME) / SHAKE... Start Date: 09/18/21 Status: Orderedbacitracin zinc 500 units/g topical ointment See Instructions, APPLY A DIME SIZE AMOUNT TO SUPERFICIAL WOUNDS TWICE DAILY NEEDED ANTIBACTERIAL / CALL MD IF USING LONGER THAN 7 DAYS, # 28.4 Gm, 11 Refills, [facility], 10, APPLY A DIME SIZE AMOUNT TO SUPERFICIAL WOUNDS TWICE DAILY NE... Start Date: 08/18/21 Status: OrderedBenefiber oral powder for reconstitution 5 mL, By Mouth, 2 times a day, PRN as needed for constipation, # 155 Gm, 1 Refills, Maintenance, 03/30/20 13:47:00 EST, REC Powder, [facility], 5 mL By Mouth 2 times [...] mL, 0 Refills, Maintenance, 11/18/19 14:25:00 EDT, [facility], 2 teasponn q 6 hour prn, [...] tablet, Refills 5, Route to Pharmacy Electronically, [facility], 163, cm, 03/28/21 11:55:00 EST, Height Start Date: 08/04/21 Status: Orderedlubiprostone 24 mcg oral capsule 1 capsule = 24 mcg, By Mouth, 2 times a day, # 60 capsule, 0 Refills, Maintenance, 05/18/15 3:07:13,Capsule Start Date: 05/18/15 Status: OrderedMilk of Magnesia 8% oral suspension 30 mL, By Mouth, Daily at bedtime, FOR CONSTIPATION., # 900 mL, 5 Refills, [facility], 163, cm,10/13/20 9:36:00 EDT, Height Start Date: 10/17/20 Status: OrderedMilk of Magnesia 8% oral suspension See Instructions, TAKE 30 ML BY MOUTH DAILY AT BEDTIME FOR CONSTIPATION, # 900 mL, 5 Refills, [facility], 163, cm, 03/28/21 11:55:00 EST, Height Start [...] Gm, 5 Refills, Maintenance, 08/03/21 15:55:00 EDT, [facility], Take 1 capfull 2x daily, 163, cm, 03/28/21 11:55:00 EST, Height Start Date: 08/03/21 Status: Orderedpsyllium 3.4 gm/11 gm oral powder for reconstitution = 3.4 Gm, By Mouth, 2 times a day, PRN as needed for constipation, Reguloid dissolve in 8 oz of fluid, # 390 Gm, 5 Refills, Maintenance, 07/27/19 15:38:00 EDT, REC Powder, [facility], 163, cm, 03/10/19 14:39:00 EST, Height, [...] day, SIMETHICONE., # 30 mL, 10 Refills, [facility], 163, cm, 03/28/21 11:55:00 EST, Height [...] Unsteady gait(Confirmed) Active [facility] [address]305Mvaqqhbsosh 2011 normal, repeat 2021. Social History Social History Type Response Smoking Status Never smoker entered on: 07/22/15 Sex Male Care Team PersonnelName: Claire TOWNSEND, Tomy Rosales Address: [address] [place] [id number]
--- OUTSIDE RECORDS SUMMARY | 2022-01-02 15:17 | XMS_ITS | Continuity of Care Document ---
:1955 Author Organization [facility] Adult Address [address] [place] [address]- Care Team Providers Name Role Phone Tomy Rangel MD Primary Care Physician [facility] Date[facility]s): 02/17/19 - 02/27/19 [facility] Adult [address] [place] [address]- [facility] Attending Physician: Admtr, [id number] Admitting Physician: Admtr, [...] toxoids (Td) 11/16/99 Given 1Result Comment: [11/12/2016] [id number] Note: VIS: 09/28/083Admin Note: VIS 6/30/30060Yxhkqxny History: CENTER [id number] Note: VIS: 01/06/086Admin Note: VIS: 08/02/057Admin Note: [...] WELL, FOR GERD DOSE = 10 ML, [facility] Start Date: 12/15/18 Status: Orderedbacitracin-polymyxin B topical 500 u-47134 u/gm ointment 1 applicator, Topically, 2 times [...] Instructions Replace Required Details,Route to Pharmacy Electronically, [id number]... Start Date: 12/09/18 Status: OrderedDysphagia consultation Dysphagia [...] 01/23/19 12:47:33 EST, Route to Pharmacy Electronically, [id number], [facility], 163, cm, 10/24/18 14:23:34 EDT, Height, [...] EDT Start Date: 10/28/18 Status: Orderednystatin topical 482067 u/gm powder See Instructions, APPLY TO GROIN [...] disorder)(Confirmed) Pica(Confirmed) Active Unsteady gait(Confirmed) Active 1[facility] 33146Wfmgrmfdjqs 2011 normal, repeat 2021. Social History Social History Type Response Smoking Status Never smoker entered on: 07/22/15 Sex
--- OUTSIDE RECORDS SUMMARY | 2022-01-02 15:17 | XMS_ITS | Continuity of Care Document ---
:1955 Author Organization [facility] Adult Address [address] [place] [address]- Care Team Providers Name Role Phone Claire TOWNSEND, Tomy Rosales Primary Care Physician [facility] Date[facility]s): 10/14/20 - 11/13/20 [facility] [place] Adult [address] [place] [address]- Allergies, Adverse Reactions, Alerts Substance Reaction Severity [...] toxoids (Td) 11/16/99 Given 1Result Comment: [11/12/2016] [id number] Note: VIS: 09/28/083Admin Note: VIS 08/17/200516194Gevrcwtv History: CENTER [id number] Note: VIS: dmin Note: VIS: 08/02/057Admin Note: [...] 10 ML, # 1,065 mL, 5 Refills, [facility], 26, TAKE 2 TEASPOONFULS BY MOUTH 4TIMES A DAY (AFTER MEALS AND AT BEDTIME) / SHAKE... Start Date: 10/17/20 Status: Orderedbacitracin zinc 500 units/g topical ointment 1 application, Topically, 3 times a day, PRN abrasion, # 454 Gm, 1 Refills, Maintenance, 07/14/20 7:38:00 EDT, Ointment, [facility], Partial fill upon patient request if the prescription is for a schedule II opioid drug., 1 application Topically... Start Date: 07/14/20 Status: OrderedBenefiber oral powder for reconstitution 5 mL, By Mouth, 2 times a day, PRN as needed for constipation, # 155 Gm, 1 Refills, Maintenance, 03/30/20 13:47:00 EST, REC Powder, [facility], 5 mL By Mouth 2 times [...] a day, # 120 capsule, 5 Refills, [facility], 163, cm, 10/13/20 9:36:00 EDT, Height [...] 07/29/20 11:03:00 EDT, Route to Pharmacy Electronically, [facility], 163, cm, 01/11/20 8:05:00 EST, Height Start Date: 07/29/20 Status: Orderedlubiprostone 24 mcg oral capsule 1 capsule = 24 mcg, By Mouth, 2 times a day, # 60 capsule, 0 Refills, Maintenance, 05/18/15 3:07:13,Capsule Start Date: 05/18/15 Status: OrderedMilk of Magnesia 8% oral suspension 30 mL, By Mouth, Daily at bedtime, FOR CONSTIPATION., # 900 mL, 5 Refills, [facility], 163, cm,10/13/20 9:36:00 EDT, Height Start [...] Gm, 11 Refills, Maintenance, 07/01/20 11:19:00 EDT, [facility], Take 1 capfull 2x daily, 163, cm, 01/11/20 8:05:00 EST, Height Start Date: 07/01/20 Status: Orderedpsyllium 3.4 gm/11 gm oral powder for reconstitution = 3.4 Gm, By Mouth, 2 times a day, PRN as needed for constipation, Reguloid dissolve in 8 oz of fluid, # 390 Gm, 5 Refills, Maintenance, 07/27/19 15:38:00 EDT, REC Powder, [facility], 163, cm, 03/10/19 14:39:00 EST, Height, [...] mL, 11 Refills, Acute, 07/25/20 13:38:00 EDT, [facility], 163, cm, 01/11/20 8:05:00 EST, Height [...] disorder)(Confirmed) Pica(Confirmed) Active Unsteady gait(Confirmed) Active 1B 22691Ffpsqjabvry 2011 normal, repeat 2021. Social History Social History Type Response Smoking Status Never smoker entered on: 07/22/15 Sex Male
--- OUTSIDE RECORDS SUMMARY | 2022-01-02 15:17 | XMS_ITS | Continuity of Care Document ---
:1955 Author Organization [facility] Adult Address [address] [place] [address]- Care Team Providers Name Role Phone Tomy Rangel MD Primary Care Physician [facility] Date[facility]s): 12/09/20 - 01/08/21 [facility] [address] [place] [address]- Allergies, Adverse Reactions, Alerts Substance Reaction Severity [...] toxoids (Td) 11/16/99 Given 1Result Comment: [11/12/2016] [id number] Note: VIS: 09/28/083Admin Note: VIS 08/17/[id number] History: CENTER [id number] Note: VIS: 01/06/086Admin Note: VIS: 08/02/057Admin Note: [...] 10 ML, # 1,065 mL, 5 Refills, [facility], 26, TAKE 2 TEASPOONFULS BY MOUTH 4TIMES A DAY (AFTER MEALS AND AT BEDTIME) / SHAKE... Start Date: 10/17/20 Status: Orderedbacitracin zinc 500 units/g topical ointment 1 application, Topically, 3 times a day, PRN abrasion, # 454 Gm, 1 Refills, Maintenance, 07/14/20 7:38:00 EDT, Ointment, [facility], Partial fill upon patient request if the prescription is for a schedule II opioid drug., 1 application Topically... Start Date: 07/14/20 Status: OrderedBenefiber oral powder for reconstitution 5 mL, By Mouth, 2 times a day, PRN as needed for constipation, # 155 Gm, 1 Refills, Maintenance, 03/30/20 13:47:00 EST, REC Powder, [facility], 5 mL By Mouth 2 times [...] 07/29/20 11:03:00 EDT, Route to Pharmacy Electronically, [facility], 163, cm, 01/11/20 8:05:00 EST, Height Start Date: 07/29/20 Status: Orderedlubiprostone 24 mcg oral capsule 1 capsule = 24 mcg, By Mouth, 2 times a day, # 60 capsule, 0 Refills, Maintenance, 05/18/15 3:07:13,Capsule Start Date: 05/18/15 Status: OrderedMilk of Magnesia 8% oral suspension 30 mL, By Mouth, Daily at bedtime, FOR CONSTIPATION., # 900 mL, 5 Refills, [facility], 163, cm,10/13/20 9:36:00 EDT, Height Start [...] Gm, 11 Refills, Maintenance, 07/01/20 11:19:00 EDT, [facility], Take 1 capfull 2x daily, 163, cm, 01/11/20 8:05:00 EST, Height Start Date: 07/01/20 Status: Orderedpsyllium 3.4 gm/11 gm oral powder for reconstitution = 3.4 Gm, By Mouth, 2 times a day, PRN as needed for constipation, Reguloid dissolve in 8 oz of fluid, # 390 Gm, 5 Refills, Maintenance, 07/27/19 15:38:00 EDT, REC Powder, [facility], 163, cm, 03/10/19 14:39:00 EST, Height, [...] mL, 11 Refills, Acute, 07/25/20 13:38:00 EDT, [facility], 163, cm, 01/11/20 8:05:00 EST, Height [...] Active disorder)(Confirmed) Pica(Confirmed) Active Unsteady gait(Confirmed) Active [facility] [address]07Xkochcmzydg 2011 normal, repeat 2021. Social History Social History Type Response Smoking Status Never smoker entered on: 07/22/15 Sex Male
--- OUTSIDE RECORDS SUMMARY | 2022-01-02 15:17 | XMS_ITS | Continuity of Care Document ---
:1955 Author Organization [facility] Adult Address [address] [place] [address]- Care Team Providers Name Role Phone Tomy Rangel MD Primary Care Physician [facility]s): 10/02/19 - 11/01/19 [facility] [address] [place] [address]- [facility] Allergies, Adverse Reactions, Alerts Substance Reaction [...] toxoids (Td) 11/16/99 Given 1Result Comment: [11/12/2016] [id number] Note: VIS: 09/28/083Admin Note: VIS 08/17/[id number] History: CENTER [id number] Note: VIS: 01/06/086Admin Note: VIS: 08/02/057Admin Note: [...] 5 Refills, Soft Stop, 05/22/19 13:20:00 EDT, [facility], TAKE 2 TEASPOONFULS BY MOUTH 3 TIMES A DAY AFTER CHAS... Start Date: 05/22/19 Status: Orderedbacitracin-polymyxin B topical 500 u-95855 u/gm ointment 1 applicator, Topically, 2 times a day, To affected area, # 30 Gm, 11 Refills, Maintenance, 05/20/2015:23:00 EDT, Ointment, [facility], 1 applicator Topically 2 times a day,Instr:To affected area, 163, cm, 03/10/19 14:39:00 EST, Height, 72, kg,... Start Date: 05/20/19 Status: OrderedBenefiber oral powder for reconstitution 5 mL, By Mouth, 2 times a day, PRN as needed for constipation, # 155 Gm, 1 Refills, Maintenance, 10/09/19 16:52:00 EDT, REC Powder, [facility], 5 mL By Mouth 2 times [...] 07/21/19 12:25:00 EDT, Route to Pharmacy Electronically, [facility], 163, cm, 03/10/19 14:39:00 EST, Height, [...] mL, 5 Refills, Maintenance, 09/25/19 9:36:00 EDT, [facility], 163, cm, 08/17/19 9:56:00 EDT, Height, [...] Active disorder)(Confirmed) Pica(Confirmed) Active Unsteady gait(Confirmed) Active [facility] [address]Mdcfbwgyisu 2011 normal, repeat 2021. Social History Social History Type Response Smoking Status Never smoker entered on: 07/22/15 Sex
--- OUTSIDE RECORDS SUMMARY | 2022-01-02 15:17 | XMS_ITS | Continuity of Care Document ---
:1955 Author Organization [facility] Adult Address [address] [place] [address]- Care Team Providers Name Role Phone Claire TOWNSEND, Tomy Rosales Primary Care Physician [facility]): 11/19/19 - 12/19/19 [facility] Adult [address] [place] [address]- [facility] Allergies, Adverse Reactions, Alerts Substance [...] toxoids (Td) 11/16/99 Given 1Result Comment: [11/12/2016] [id number] Note: VIS: 09/28/083Admin Note: VIS 08/17/[id number] History: CENTER [id number] Note: VIS: dmin Note: VIS: 08/02/057Admin Note: [...] 5 Refills, Soft Stop, 11/27/19 10:25:00 EDT, [facility], TAKE 2 TEASPOONFULS BY MOUTH 3 TIMES A DAY AFTER CHAS... Start Date: 11/27/19 Status: Orderedbacitracin-polymyxin B topical 500 u-87145 u/gm ointment 1 applicator, Topically, 2 times a day, To affected area, # 30 Gm, 11 Refills, Maintenance, 05/20/2015:23:00 EDT, Ointment, [facility], 1 applicator Topically 2 times a day,Instr:To affected area, 163, cm, 03/10/19 14:39:00 EST, Height, 72, kg,... Start Date: 05/20/19 Status: OrderedBenefiber oral powder for reconstitution 5 mL, By Mouth, 2 times a day, PRN as needed for constipation, # 155 Gm, 1 Refills, Maintenance, 12/14/19 15:36:00 EDT, REC Powder, [facility], 5 mL By Mouth 2 times [...] capsule, 5 Refills, Maintenance, 10/16/19 11:45:00 EDT, [facility], 163, cm, 08/17/19 9:56:00 EDT, Height, [...] mL, 0 Refills, Maintenance, 11/18/19 14:25:00 EDT, [facility], 2 teasponn q 6 hour prn, [...] 07/21/19 12:25:00 EDT, Route to Pharmacy Electronically, [facility], 163, cm, 03/10/19 14:39:00 EST, Height, [...] mL, 5 Refills, Maintenance, 09/25/19 9:36:00 EDT, [facility], 163, cm, 08/17/19 9:56:00 EDT, Height, [...] Gm, 1 Refills, Maintenance, 12/11/19 10:02:00 EDT, [facility], Take 1 capfull 2x daily, 163, cm, 08/17/19 9:56:00 EDT, Height, 72, kg, 04/13/18 8:58:00 EST, Dry Weight Start Date: 12/11/19 Status: Orderedpsyllium 3.4 gm/11 gm oral powder for reconstitution = 3.4 Gm, By Mouth, 2 times a day, PRN as needed for constipation, Reguloid dissolve in 8 oz of fluid, # 390 Gm, 5 Refills, Maintenance, 07/27/19 15:38:00 EDT, REC Powder, [facility], 163, cm, 03/10/19 14:39:00 EST, Height, [...] Active disorder)(Confirmed) Pica(Confirmed) Active Unsteady gait(Confirmed) Active [place] [address]Ypcfthclwjh 2011 normal, repeat 2021. Social History Social History Type Response Smoking Status Never smoker entered on: 07/22/15 Sex
--- OUTSIDE RECORDS SUMMARY | 2022-01-02 15:17 | XMS_ITS | Continuity of Care Document ---
:1955 Author Organization [facility] Adult Address [address] [place] [address]- Care Team Providers Name Role Phone Tomy Rangel MD Primary Care Physician [facility]19 - 10/01/19 [facility] [address] [place] [address]- [facility] Allergies, Adverse Reactions, Alerts Substance [...] toxoids (Td) 11/16/99 Given 1Result Comment: [11/12/2016] [id number] Note: VIS: 09/28/083Admin Note: VIS 08/17/[id number] History: CENTER [id number] Note: VIS: 01/06/086Admin Note: VIS: 08/02/057Admin Note: [...] 5 Refills, Soft Stop, 05/22/19 13:20:00 EDT, [facility], TAKE 2 TEASPOONFULS BY MOUTH 3 TIMES A DAY AFTER CHAS... Start Date: 05/22/19 Status: Orderedbacitracin-polymyxin B topical 500 u-39865 u/gm ointment 1 applicator, Topically, 2 times a day, To affected area, # 30 Gm, 11 Refills, Maintenance, 05/20/2015:23:00 EDT, Ointment, [facility], 1 applicator Topically 2 times a [...] capsule, 5 Refills, Maintenance, 05/20/19 14:13:00 EDT, [facility], 163, cm, 03/10/19 14:39:00 EST, Height, [...] mL, 0 Refills, Maintenance, 09/02/19 15:56:00 EDT, [facility], 2 teasponn q 6 hour prn, [...] mL, 11 Refills, Acute, 05/27/19 14:04:00 EDT, [facility], 163, cm, 03/10/19 14:39:00 EST, Height, 72, kg, 04/13/18 8:58:00 EST, Dry Weight Start Date: 05/27/19 Status: Orderedloratadine 10 mg oral tablet 10 mg, 1, tablet, By Mouth, Daily, # 30 tablet, Refills 5, Tot. Refills 5, 07/21/19 12:25:00 EDT, Route to Pharmacy Electronically, [facility], 163, cm, 03/10/19 14:39:00 EST, Height, [...] Refills, Maintenance, 07/27/19 15:38:00 EDT, REC Powder, [facility], 163, cm, 03/10/19 14:39:00 EST, Height, [...] Active [facility] [id number] 2011 normal, repeat 2021. Social History Social History Type Response Smoking Status Never smoker entered on: 07/22/15 Sex
--- OUTSIDE RECORDS SUMMARY | 2022-01-02 15:17 | XMS_ITS | Continuity of Care Document ---
:1955 Author Organization [facility] Adult Address [address] [place] [address]- Care Team Providers Name Role Phone Tomy Rangel MD Primary Care Physician [facility]19 - 03/17/19 [facility] Adult [address] [place] [address]- [facility] Attending Physician: Tomy Rangel MD Allergies, Adverse [...] toxoids (Td) 11/16/99 Given 1Result Comment: [11/12/2016] [id number] Note: VIS: 09/28/083Admin Note: VIS [id number] History: CENTER [id number] Note: VIS: 01/06/086Admin Note: VIS: 08/02/057Admin Note: [...] WELL, FOR GERD DOSE = 10 ML, [facility] Start Date: 12/15/18 Status: Orderedbacitracin-polymyxin B topical 500 u-38085 u/gm ointment 1 applicator, Topically, 2 times [...] Status: OrderedCompression Stockings See Instructions, # 2 each, Maintenance, surgical, calf length 20-30 mm Hg, 03/10/19 15:11:00 EST, Compound Start Date: 03/10/19 Status: Ordereddocusate sodium 100 mg oral capsule See Instructions, TAKE 2 CAPSULES BY MOUTH TWICE DAILY FOR CONSTIPATION DOSE = 200 MG, # 120 capsule, Refills 0, Tot. Refills 0, Soft Stop, 03/05/19 12:55:00 EST, Instructions Replace Required Details,Route to Pharmacy Electronically, [facility]... Start Date: 03/05/19 Status: OrderedDysphagia consultation Dysphagia consultation, See Instructions, [...] 01/23/19 12:47:33 EST, Route to Pharmacy Electronically, [id number], [facility], 163, cm, 10/24/18 14:23:34 EDT, Height, [...] mL, 5 Refills, Maintenance, 03/13/19 8:18:00 EST, [facility], 163, cm, 03/10/19 14:39:00 EST, Height, 72, kg, 04/13/18 8:58:00 EST, Dry Weight Start Date: 03/13/19 Status: Orderednystatin topical 437016 u/gm powder See Instructions, APPLY TO GROIN AREA BID X 7 DAYS., # 30 Gm, 0 Refills, Acute 03/20/19 7:00:00 EST,02/17/19 9:04:00 EST, Powder, [facility], APPLY TO GROIN AREA BID X [...] 8 oz of fluid, # 390 Gm, 0 Refills, Maintenance, 03/05/19 12:55:00 EST, REC Powder, [facility], Please remind pt. ask for additional refills at their 03/10/19... Start Date: 03/05/19 Status: OrderedReguloid 3.4 gm/11 gm oral powder [...] Active [facility] 08191Lplbafajuhp 2011 normal, repeat 2021. Vital Signs Most recent to oldest [Reference Range]: 1 Height 163 cm (03/10/19 2:39 PM) Pulse Rate [55-90 bpm] 72 bpm (03/10/19 2:39 PM) Blood Pressure [90-138/55-84 mm Hg] 108/64 mm Hg (03/10/19 2:39 PM) Mode of Delivery (Oxygen) Room air (03/10/19 2:39 PM) Blood pressure sites Arm, left (03/10/19 2:39 PM) Social History Social History Type Response Smoking Status Never smoker entered on: 07/22/15 Sex
--- OUTSIDE RECORDS SUMMARY | 2022-01-02 15:17 | XMS_ITS | Continuity of Care Document ---
:1955 Author Organization [facility] Adult Address [address] [place] [address]- Care Team Providers Name Role Phone Claire TOWNSEND, Tomy Roasles Primary Care Physician [facility] 01/07/20 - 02/06/20 [facility] Adult [address] [place] [address]- Allergies, Adverse Reactions, Alerts Substance Reaction Severity [...] toxoids (Td) 11/16/99 Given 1Result Comment: [11/12/2016] [id number] Note: VIS: 09/28/083Admin Note: VIS 08/17/[id number] History: DOYLE [id number] Note: VIS: 01/06/086Admin Note: VIS: 08/02/057Admin Note: [...] 5 Refills, Soft Stop, 11/27/19 10:25:00 EDT, [facility], TAKE 2 TEASPOONFULS BY MOUTH 3 TIMES A DAY AFTER CHAS... Start Date: 11/27/19 Status: Orderedbacitracin-polymyxin B topical 500 u-26058 u/gm ointment 1 applicator, Topically, 2 times a day, To affected area, # 30 Gm, 11 Refills, Maintenance, 05/20/2015:23:00 EDT, Ointment, [facility], 1 applicator Topically 2 times a day,Instr:To affected area, 163, cm, 03/10/19 14:39:00 EST, Height, 72, kg,... Start Date: 05/20/19 Status: OrderedBenefiber oral powder for reconstitution 5 mL, By Mouth, 2 times a day, PRN as needed for constipation, # 155 Gm, 1 Refills, Maintenance, 02/02/20 12:03:00 EST, REC Powder, [facility], 5 mL By Mouth 2 times [...] 01/29/20 9:40:00 EST, Route to Pharmacy Electronically, [facility], 163, cm, 01/11/20 8:05:00 EST, Height, [...] mL, 5 Refills, Maintenance, 09/25/19 9:36:00 EDT, [facility], 163, cm, 08/17/19 9:56:00 EDT, Height, [...] Gm, 1 Refills, Maintenance, 12/11/19 10:02:00 EDT, [facility], Take 1 capfull 2x daily, 163, cm, 08/17/19 9:56:00 EDT, Height, 72, kg, 04/13/18 8:58:00 EST, Dry Weight Start Date: 12/11/19 Status: Orderedpsyllium 3.4 gm/11 gm oral powder for reconstitution = 3.4 Gm, By Mouth, 2 times a day, PRN as needed for constipation, Reguloid dissolve in 8 oz of fluid, # 390 Gm, 5 Refills, Maintenance, 07/27/19 15:38:00 EDT, REC Powder, [facility], 163, cm, 03/10/19 14:39:00 EST, Height, [...] Pica(Confirmed) Active Unsteady gait(Confirmed) Active [facility] [address]Rtcwwdrzoue 2011 normal, repeat 2021. Social History Social History Type Response Smoking Status Never smoker entered on: 07/22/15 Sex
--- OUTSIDE RECORDS SUMMARY | 2022-01-02 15:17 | XMS_ITS | Continuity of Care Document ---
:1955 Author Organization [facility] Adult Address [address] [place] [address]- Care Team Providers Name Role Phone Claire TOWNSEND, Tomy Rosales Primary Care Physician Encounter [facility] Date(s): 10/26/21 - 11/02/21 [facility] Adult [address] [place] [address]- Attending Physician: Soraida Luna NP Allergies, Adverse [...] toxoids (Td) 11/16/99 Given 1Result Comment: [11/12/2016] [id number] Note: VIS: 09/28/083Admin Note: VIS 08/17/[id number] History: [facility] [id number] Note: VIS: 01/06/086Admin Note: VIS: 08/02/057Admin Note: VIS:08/02/05 Medications acetaminophen 325 mg oral tablet See Instructions, 2 TABS BY MOUTH EVERY 6 HRS FOR DISCOMFORT/PIEDRA/TEMP>101/UNSTEADI- NESS(HEAVY BREATHING)/MAPAP/CALL MD IF GIVING > 7 DAYS/ZGZL=[id number] 8 TABS/DAY MAX/SEE ANCILLARY, # 120 tablet, Refills 1, Instructions Replace Required Details, Route to... Start Date: 08/24/21 Status: OrderedAcid Gone 95 mg-358 mg/15 mL oral suspension See Instructions, TAKE 2 TEASPOONFULS BY MOUTH 4 TIMES A DAY (AFTER MEALS AND AT BEDTIME) / SHAKE WELL, FOR GERD DOSE = 10 ML, # 1,065 mL, 5 Refills, [facility], 26, TAKE 2 TEASPOONFULS BY MOUTH 4TIMES A DAY (AFTER MEALS AND AT BEDTIME) / SHAKE... Start Date: 09/18/21 Status: Orderedbacitracin zinc 500 units/g topical ointment See Instructions, APPLY A DIME SIZE AMOUNT TO SUPERFICIAL WOUNDS TWICE DAILY NEEDED ANTIBACTERIAL / CALL MD IF USING LONGER THAN 7 DAYS, # 28.4 Gm, 11 Refills, [facility], 10, APPLY A DIME SIZE AMOUNT TO SUPERFICIAL WOUNDS TWICE DAILY NE... Start Date: 08/18/21 Status: OrderedBenefiber oral powder for reconstitution 5 mL, By Mouth, 2 times a day, PRN as needed for constipation, # 155 Gm, 1 Refills, Maintenance, 03/30/20 13:47:00 EST, REC Powder, [facility], 5 mL By Mouth 2 times [...] mL, 0 Refills, Maintenance, 11/18/19 14:25:00 EDT, [facility], 2 teasponn q 6 hour prn, [...] tablet, Refills 5, Route to Pharmacy Electronically, [facility], 163, cm, 03/28/21 11:55:00 EST, Height Start Date: 08/04/21 Status: Orderedlubiprostone 24 mcg oral capsule 1 capsule = 24 mcg, By Mouth, 2 times a day, # 60 capsule, 0 Refills, Maintenance, 05/18/15 3:07:13,Capsule Start Date: 05/18/15 Status: OrderedMilk of Magnesia 8% oral suspension 30 mL, By Mouth, Daily at bedtime, FOR CONSTIPATION., # 900 mL, 5 Refills, [facility], 163, cm,10/13/20 9:36:00 EDT, Height Start Date: 10/17/20 Status: OrderedMilk of Magnesia 8% oral suspension See Instructions, TAKE 30 ML BY MOUTH DAILY AT BEDTIME FOR CONSTIPATION, # 900 mL, 5 Refills, [facility], 163, cm, 03/28/21 11:55:00 EST, Height Start [...] Gm, 5 Refills, Maintenance, 08/03/21 15:55:00 EDT, [facility], Take 1 capfull 2x daily, 163, cm, 03/28/21 11:55:00 EST, Height Start Date: 08/03/21 Status: Orderedpsyllium 3.4 gm/11 gm oral powder for reconstitution = 3.4 Gm, By Mouth, 2 times a day, PRN as needed for constipation, Reguloid dissolve in 8 oz of fluid, # 390 Gm, 5 Refills, Maintenance, 07/27/19 15:38:00 EDT, REC Powder, [facility], 163, cm, 03/10/19 14:39:00 EST, Height, [...] day, SIMETHICONE., # 30 mL, 10 Refills, [facility], 163, cm, 03/28/21 11:55:00 EST, Height [...] Active disorder)(Confirmed) Pica(Confirmed) Active Unsteady gait(Confirmed) Active [facility] [address]Uktksllsgoc 2011 normal, repeat 2021. Vital Signs Most recent to oldest [Reference Range]: 1 Height 163 cm (10/26/21 2:29 PM) Weight 61.6 kg (10/26/21 2:29 PM) Pulse Rate [55-90 bpm] 60 bpm (10/26/21 2:29 PM) Body Mass Index [18.5-24.99] 23.18 (10/26/21 2:29 PM) Blood Pressure [90-138/55-84 mm Hg] 98/63 mm Hg (10/26/21 2:29 PM) Respiratory Rate [16-30 br/min] 20 br/min (10/26/21 2:29 PM) Mode of Delivery (Oxygen) Room air (10/26/21 2:29 PM) Blood pressure sites Arm, right (10/26/21 2:29 PM) Weight Obtained Via Patient/family stated (10/26/21 2:29 PM) Social History Social History Type Response Smoking Status Never smoker entered on: 07/22/15 Sex Male Care Team PersonnelName: Claire TOWNSEND, Tomy Rosales Address: [address] [place] [id number]
--- OUTSIDE RECORDS SUMMARY | 2022-01-02 15:17 | XMS_ITS | Continuity of Care Document ---
:[address] [facility] Adult Address [address] [place] [address]- Care Team Providers Name Role Phone Claire TOWNSEND, Tomy Rosales Primary Care Physician [facility]s): 03/20/21 - 04/19/21 [facility] [address] [place] [address]- Allergies, Adverse Reactions, Alerts Substance Reaction Severity [...] toxoids (Td) 11/16/99 Given 1Result Comment: [11/12/2016] [id number] Note: VIS: 09/28/083Admin Note: VIS 08/17/[id number] History: CENTER [id number] Note: VIS: 01/06/086Admin Note: VIS: 08/02/057Admin Note: [...] 10 ML, # 1,065 mL, 5 Refills, [facility], 26, TAKE 2 TEASPOONFULS BY MOUTH 4TIMES A DAY (AFTER MEALS AND AT BEDTIME) / SHAKE... Start Date: 03/30/21 Status: Orderedbacitracin zinc 500 units/g topical ointment 1 application, Topically, 3 times a day, PRN abrasion, # 454 Gm, 1 Refills, Maintenance, 07/14/20 7:38:00 EDT, Ointment, [facility], Partial fill upon patient request if the prescription is for a schedule II opioid drug., 1 application Topically... Start Date: 07/14/20 Status: OrderedBenefiber oral powder for reconstitution 5 mL, By Mouth, 2 times a day, PRN as needed for constipation, # 155 Gm, 1 Refills, Maintenance, 03/30/20 13:47:00 EST, REC Powder, [facility], 5 mL By Mouth 2 times [...] 200 MG, # 120 capsule, 5 Refills, [facility], 163, cm, 03/28/21 11:55:00 EST, Height [...] mL, 0 Refills, Maintenance, 11/18/19 14:25:00 EDT, [facility], 2 teasponn q 6 hour prn, [...] Replace Required Details, Route to Pharmacy Electronically, [facility], 163, cm, 10/13/20 9:36:00 EDT, Height Start Date: 02/02/21 Status: Orderedlubiprostone 24 mcg oral capsule 1 capsule = 24 mcg, By Mouth, 2 times a day, # 60 capsule, 0 Refills, Maintenance, 05/18/15 3:07:13,Capsule Start Date: 05/18/15 Status: OrderedMilk of Magnesia 8% oral suspension 30 mL, By Mouth, Daily at bedtime, FOR CONSTIPATION., # 900 mL, 5 Refills, [facility], 163, cm,10/13/20 9:36:00 EDT, Height Start [...] Refills, Maintenance, 07/27/19 15:38:00 EDT, REC Powder, [facility], 163, cm, 03/10/19 14:39:00 EST, Height, [...] day, SIMETHICONE., # 30 mL, 10 Refills, [facility], 163, cm, 10/13/20 9:36:00 EDT, Height [...] disorder)(Confirmed) Pica(Confirmed) Active Unsteady gait(Confirmed) Active 1B 58514Oeqlfpawybz 2011 normal, repeat 2021. Social History Social History Type Response Smoking Status Never smoker entered on: 07/22/15 Sex Male
--- OUTSIDE RECORDS SUMMARY | 2022-01-02 15:17 | XMS_ITS | Continuity of Care Document ---
:1955 Author Organization [facility] Adult Address [address] [place] [address]- Care Team Providers Name Role Phone Tomy Rangel MD Primary Care Physician [facility]s): 10/22/19 - 11/21/19 [facility] Adult [address] [place] [address]- [facility] Allergies, Adverse Reactions, Alerts Substance Reaction [...] toxoids (Td) 11/16/99 Given 1Result Comment: [11/12/2016] [id number] Note: VIS: 09/28/083Admin Note: VIS 08/17/[id number] History: CENTER [id number] Note: VIS: 01/06/086Admin Note: VIS: 08/02/057Admin Note: [...] 5 Refills, Soft Stop, 05/22/19 13:20:00 EDT, [facility], TAKE 2 TEASPOONFULS BY MOUTH 3 TIMES A DAY AFTER CHAS... Start Date: 05/22/19 Status: Orderedbacitracin-polymyxin B topical 500 u-27729 u/gm ointment 1 applicator, Topically, 2 times a day, To affected area, # 30 Gm, 11 Refills, Maintenance, 05/20/2015:23:00 EDT, Ointment, [facility], 1 applicator Topically 2 times a day,Instr:To affected area, 163, cm, 03/10/19 14:39:00 EST, Height, 72, kg,... Start Date: 05/20/19 Status: OrderedBenefiber oral powder for reconstitution 5 mL, By Mouth, 2 times a day, PRN as needed for constipation, # 155 Gm, 1 Refills, Maintenance, 10/09/19 16:52:00 EDT, REC Powder, [facility], 5 mL By Mouth 2 times [...] 07/21/19 12:25:00 EDT, Route to Pharmacy Electronically, [facility], 163, cm, 03/10/19 14:39:00 EST, Height, [...] mL, 5 Refills, Maintenance, 09/25/19 9:36:00 EDT, [facility], 163, cm, 08/17/19 9:56:00 EDT, Height, [...] Gm, 0 Refills, Maintenance, 11/13/19 10:51:00 EDT, [facility], Take 1 capfull 2x daily, 163, [...] disorder)(Confirmed) Pica(Confirmed) Active Unsteady gait(Confirmed) Active 1B 11874Bhrnatufbhj 2011 normal, repeat 2021. Social History Social History Type Response Smoking Status Never smoker entered on: 07/22/15 Sex
--- OUTSIDE RECORDS SUMMARY | 2022-01-02 15:17 | XMS_ITS | Continuity of Care Document ---
:1955 Author Organization [facility] Adult Address [address] [place] [address]- Care Team Providers Name Role Phone Tomy Rangel MD Primary Care Physician [place] [facility] [place]): 12/[place]/19 - 12/28/19 [facility] [address] [place] [address]- Encounter Diagnosis Aspiration pneumonia (Discharge Diagnosis) - 12/21/19 Attending Physician: Not on Staff, Attending MD [...] toxoids (Td) 11/16/99 Given 1Result Comment: [11/12/2016] [id number] Note: VIS: 09/28/083Admin Note: VIS [id number] History: CENTER [id number] Note: VIS: dmin Note: VIS: 08/02/057Admin Note: [...] 5 Refills, Soft Stop, 11/27/19 10:25:00 EDT, [facility], TAKE 2 TEASPOONFULS BY MOUTH 3 TIMES A DAY AFTER CHAS... Start Date: 11/27/19 Status: Orderedbacitracin-polymyxin B topical 500 u-91539 u/gm ointment 1 applicator, Topically, 2 times a day, To affected area, # 30 Gm, 11 Refills, Maintenance, 05/20/2015:23:00 EDT, Ointment, [facility], 1 applicator Topically 2 times a day,Instr:To affected area, 163, cm, 03/10/19 14:39:00 EST, Height, 72, kg,... Start Date: 05/20/19 Status: OrderedBenefiber oral powder for reconstitution 5 mL, By Mouth, 2 times a day, PRN as needed for constipation, # 155 Gm, 1 Refills, Maintenance, 12/14/19 15:36:00 EDT, REC Powder, [facility], 5 mL By Mouth 2 times [...] capsule, 5 Refills, Maintenance, 10/16/19 11:45:00 EDT, [facility], 163, cm, 08/17/19 9:56:00 EDT, Height, [...] mL, 0 Refills, Maintenance, 11/18/19 14:25:00 EDT, [facility], 2 teasponn q 6 hour prn, [...] mL, 11 Refills, Acute, 05/27/19 14:04:00 EDT, [facility], 163, cm, 03/10/19 14:39:00 EST, Height, 72, kg, 04/13/18 8:58:00 EST, Dry Weight Start Date: 05/27/19 Status: Orderedloratadine 10 mg oral tablet 10 mg, 1, tablet, By Mouth, Daily, # 30 tablet, Refills 5, Tot. Refills 5, 07/21/19 12:25:00 EDT, Route to Pharmacy Electronically, [facility], 163, cm, 03/10/19 14:39:00 EST, Height, [...] mL, 5 Refills, Maintenance, 09/25/19 9:36:00 EDT, [facility], 163, cm, 08/17/19 9:56:00 EDT, Height, [...] Refills, Maintenance, 07/27/19 15:38:00 EDT, REC Powder, [facility], 163, cm, 03/10/19 14:39:00 EST, Height, [...] disorder)(Confirmed) Pica(Confirmed) Active Unsteady gait(Confirmed) Active [facility] [address]Lwzuqozglbz 2011 normal, repeat 2021. Diagnosis Diagnosis Type Effective Dates Health Clinical Infor mant Status Service Aspiration Discharge 12/21/19 pneumonia Diagnosis Vital Signs Most recent to oldest [Reference Range]: 1 Height 163 cm (12/21/19 2:42 PM) Social History Social History Type Response Smoking Status Never smoker entered on: 07/22/15 Sex
--- OUTSIDE RECORDS SUMMARY | 2022-01-02 15:17 | XMS_ITS | Continuity of Care Document ---
:1955 Author Organization [facility] Adult Address [address] [place] [address]- Care Team Providers Name Role Phone Tomy Rangel MD Primary Care Physician [facility] Date[facility]s): 05/20/20 - 06/19/20 [facility] [address] [place] [address]- Allergies, Adverse Reactions, Alerts Substance Reaction Severity [...] toxoids (Td) 11/16/99 Given 1Result Comment: [11/12/2016] [id number] Note: VIS: 09/28/083Admin Note: VIS 08/17/[id number] History: CENTER [id number] Note: VIS: 01/06/086Admin Note: VIS: 08/02/057Admin Note: [...] 5 Refills, Soft Stop, 04/25/20 7:36:00 EST, [facility], TAKE 2 TEASPOONFULS BY MOUTH 3 TIMES A DAY AFTER MEAL... Start Date: 04/25/20 Status: Orderedbacitracin-polymyxin B topical 500 u-80316 u/gm ointment 1 applicator, Topically, 2 times a day, To affected area, # 30 Gm, 11 Refills, Maintenance, 05/20/2015:23:00 EDT, Ointment, [facility], 1 applicator Topically 2 times a day,Instr:To affected area, 163, cm, 03/10/19 14:39:00 EST, Height, 72, kg,... Start Date: 05/20/19 Status: OrderedBenefiber oral powder for reconstitution 5 mL, By Mouth, 2 times a day, PRN as needed for constipation, # 155 Gm, 1 Refills, Maintenance, 03/30/20 13:47:00 EST, REC Powder, [facility], 5 mL By Mouth 2 times [...] capsule, 5 Refills, Maintenance, 05/12/20 10:52:00 EDT, [facility], 163, cm, 01/11/20 8:05:00 EST, Height [...] mL, 0 Refills, Maintenance, 11/18/19 14:25:00 EDT, [facility], 2 teasponn q 6 hour prn, [...] 01/29/20 9:40:00 EST, Route to Pharmacy Electronically, [facility], 163, cm, 01/11/20 8:05:00 EST, Height, [...] mL, 5 Refills, Maintenance, 03/29/20 9:08:00 EST, [facility], 163, cm, 01/11/20 8:05:00 EST, Height, [...] Refills, Maintenance, 07/27/19 15:38:00 EDT, REC Powder, [facility], 163, cm, 03/10/19 14:39:00 EST, Height, [...] disorder)(Confirmed) Pica(Confirmed) Active Unsteady gait(Confirmed) Active 1B 36837Psaoccqpvis 2011 normal, repeat 2021. Social History Social History Type Response Smoking Status Never smoker entered on: 07/22/15 Sex
--- OUTSIDE RECORDS SUMMARY | 2022-01-02 15:17 | XMS_ITS | Continuity of Care Document ---
:1955 Author Organization [facility] Adult Address [address] [place] [address]- Care Team Providers Name Role Phone Claire TOWNSEND, Tomy Rosales Primary Care Physician [facility] Date[facility]s): 03/30/21 - 04/29/21 [facility] [address] [place] [address]- Allergies, Adverse Reactions, Alerts Substance Reaction Severity [...] toxoids (Td) 11/16/99 Given 1Result Comment: [11/12/2016] [id number] Note: VIS: 09/28/083Admin Note: VIS 08/17/[id number] History: CENTER [id number] Note: VIS: 01/06/086Admin Note: VIS: 08/02/057Admin Note: [...] 10 ML, # 1,065 mL, 5 Refills, [facility], 26, TAKE 2 TEASPOONFULS BY MOUTH 4TIMES A DAY (AFTER MEALS AND AT BEDTIME) / SHAKE... Start Date: 03/30/21 Status: Orderedbacitracin zinc 500 units/g topical ointment 1 application, Topically, 3 times a day, PRN abrasion, # 454 Gm, 1 Refills, Maintenance, 07/14/20 7:38:00 EDT, Ointment, [facility], Partial fill upon patient request if the prescription is for a schedule II opioid drug., 1 application Topically... Start Date: 07/14/20 Status: OrderedBenefiber oral powder for reconstitution 5 mL, By Mouth, 2 times a day, PRN as needed for constipation, # 155 Gm, 1 Refills, Maintenance, 03/30/20 13:47:00 EST, REC Powder, [facility], 5 mL By Mouth 2 times [...] Acute 05/03/21 11:51:00 EDT, 04/05/21 12:27:00 EST, [facility], Partial fill upon patient request if the prescription is for a schedule II opioid drug., 5 mL By Mouth Every 4 hours, 163, cm, 02... Start Date: 04/05/21 Stop Date: 05/03/21 Status: Ordereddocusate sodium 100 mg oral capsule See Instructions, TAKE 2 CAPSULES BY MOUTH TWICE DAILY FOR CONSTIPATION DOSE = 200 MG, # 120 capsule, 5 Refills, [facility], 163, cm, 03/28/21 11:55:00 EST, Height [...] mL, 0 Refills, Maintenance, 11/18/19 14:25:00 EDT, [facility], 2 teasponn q 6 hour prn, [...] Replace Required Details, Route to Pharmacy Electronically, [facility], 163, cm, 10/13/20 9:36:00 EDT, Height Start Date: 02/02/21 Status: Orderedlubiprostone 24 mcg oral capsule 1 capsule = 24 mcg, By Mouth, 2 times a day, # 60 capsule, 0 Refills, Maintenance, 05/18/15 3:07:13,Capsule Start Date: 05/18/15 Status: OrderedMilk of Magnesia 8% oral suspension 30 mL, By Mouth, Daily at bedtime, FOR CONSTIPATION., # 900 mL, 5 Refills, [facility], 163, cm,10/13/20 9:36:00 EDT, Height Start [...] Refills, Maintenance, 07/27/19 15:38:00 EDT, REC Powder, [facility], 163, cm, 03/10/19 14:39:00 EST, Height, [...] day, SIMETHICONE., # 30 mL, 10 Refills, [facility], 163, cm, 10/13/20 9:36:00 EDT, Height [...] Pica(Confirmed) Active Unsteady gait(Confirmed) [place] [facility] [address]Hhlpcvzoxyu 2011 normal, repeat 2021. Social History Social History Type Response Smoking Status Never smoker entered on: 07/22/15 Sex Male
--- OUTSIDE RECORDS SUMMARY | 2022-01-02 15:17 | XMS_ITS | Continuity of Care Document ---
:1955 Author Organization [facility] Adult Address [address] [place] [address]- Care Team Providers Name Role Phone Claire TOWNSEND, Tomy Rosales Primary Care Physician [facility]20 - 03/18/20 [facility] [address] [place] [address]- Allergies, Adverse Reactions, Alerts Substance Reaction Severity [...] toxoids (Td) 11/16/99 Given 1Result Comment: [11/12/2016] [id number] Note: VIS: 09/28/083Admin Note: VIS 08/17/[id number] History: CENTER [id number] Note: VIS: dmin Note: VIS: 08/02/057Admin Note: [...] 5 Refills, Soft Stop, 11/27/19 10:25:00 EDT, [facility], TAKE 2 TEASPOONFULS BY MOUTH 3 TIMES A DAY AFTER CHAS... Start Date: 11/27/19 Status: Orderedbacitracin-polymyxin B topical 500 u-48057 u/gm ointment 1 applicator, Topically, 2 times a day, To affected area, # 30 Gm, 11 Refills, Maintenance, 05/20/2015:23:00 EDT, Ointment, [facility], 1 applicator Topically 2 times a day,Instr:To affected area, 163, cm, 03/10/19 14:39:00 EST, Height, 72, kg,... Start Date: 05/20/19 Status: OrderedBenefiber oral powder for reconstitution 5 mL, By Mouth, 2 times a day, PRN as needed for constipation, # 155 Gm, 1 Refills, Maintenance, 02/02/20 12:03:00 EST, REC Powder, [facility], 5 mL By Mouth 2 times [...] capsule, 5 Refills, Maintenance, 10/16/19 11:45:00 EDT, [facility], 163, cm, 08/17/19 9:56:00 EDT, Height, [...] mL, 0 Refills, Maintenance, 11/18/19 14:25:00 EDT, [facility], 2 teasponn q 6 hour prn, [...] 01/29/20 9:40:00 EST, Route to Pharmacy Electronically, [facility], 163, cm, 01/11/20 8:05:00 EST, Height, [...] mL, 5 Refills, Maintenance, 09/25/19 9:36:00 EDT, [facility], 163, cm, 08/17/19 9:56:00 EDT, Height, [...] Refills, Maintenance, 07/27/19 15:38:00 EDT, REC Powder, [facility], 163, cm, 03/10/19 14:39:00 EST, Height, [...] gait(Confirmed) Active [facility] [id number] 2011 normal, repeat 2021. Social History Social History Type Response Smoking Status Never smoker entered on: 07/22/15 Sex
--- OUTSIDE RECORDS SUMMARY | 2022-01-02 15:17 | XMS_ITS | Continuity of Care Document ---
:1955 Author Organization [facility] [place] Adult Address [address] [place] [address]- Care Team Providers Name Role Phone Tomy Rangel MD Primary Care Physician [facility] 12/[facility]20 - 12/31/20 [facility] [place] [address] [place] [address]- Allergies, Adverse Reactions, Alerts Substance Reaction Severity [...] toxoids (Td) 11/16/99 Given 1Result Comment: [11/12/2016] [id number] Note: VIS: 09/28/083Admin Note: VIS 08/17/[id number] History: CENTER [id number] Note: VIS: 01/06/086Admin Note: VIS: 08/02/057Admin Note: [...] 10 ML, # 1,065 mL, 5 Refills, [facility], 26, TAKE 2 TEASPOONFULS BY MOUTH 4TIMES A DAY (AFTER MEALS AND AT BEDTIME) / SHAKE... Start Date: 10/17/20 Status: Orderedbacitracin zinc 500 units/g topical ointment 1 application, Topically, 3 times a day, PRN abrasion, # 454 Gm, 1 Refills, Maintenance, 07/14/20 7:38:00 EDT, Ointment, [facility], Partial fill upon patient request if the prescription is for a schedule II opioid drug., 1 application Topically... Start Date: 07/14/20 Status: OrderedBenefiber oral powder for reconstitution 5 mL, By Mouth, 2 times a day, PRN as needed for constipation, # 155 Gm, 1 Refills, Maintenance, 03/30/20 13:47:00 EST, REC Powder, [facility], 5 mL By Mouth 2 times [...] 07/29/20 11:03:00 EDT, Route to Pharmacy Electronically, [facility], 163, cm, 01/11/20 8:05:00 EST, Height Start Date: 07/29/20 Status: Orderedlubiprostone 24 mcg oral capsule 1 capsule = 24 mcg, By Mouth, 2 times a day, # 60 capsule, 0 Refills, Maintenance, 05/18/15 3:07:13,Capsule Start Date: 05/18/15 Status: OrderedMilk of Magnesia 8% oral suspension 30 mL, By Mouth, Daily at bedtime, FOR CONSTIPATION., # 900 mL, 5 Refills, [facility], 163, cm,10/13/20 9:36:00 EDT, Height Start [...] Gm, 11 Refills, Maintenance, 07/01/20 11:19:00 EDT, [facility], Take 1 capfull 2x daily, 163, cm, 01/11/20 8:05:00 EST, Height Start Date: 07/01/20 Status: Orderedpsyllium 3.4 gm/11 gm oral powder for reconstitution = 3.4 Gm, By Mouth, 2 times a day, PRN as needed for constipation, Reguloid dissolve in 8 oz of fluid, # 390 Gm, 5 Refills, Maintenance, 07/27/19 15:38:00 EDT, REC Powder, [facility], 163, cm, 03/10/19 14:39:00 EST, Height, [...] mL, 11 Refills, Acute, 07/25/20 13:38:00 EDT, [facility], 163, cm, 01/11/20 8:05:00 EST, Height [...] Active disorder)(Confirmed) Pica(Confirmed) Active Unsteady gait(Confirmed) Active [facility] 62538Zdeowqhohul 2011 normal, repeat 2021. Social History Social History Type Response Smoking Status Never smoker entered on: 07/22/15 Sex Male
--- OUTSIDE RECORDS SUMMARY | 2022-01-02 15:18 | XMS_ITS ---
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 Past Encounters 12/05/2020 Cough; Aspiration Pneumonia OFELIA Ewing: [address], [place] [address], Ph. [phone] Social History Tobacco Smoking Status Never Smoker Vaccine List None recorded. Plan of Care Reminders Provider Appointments None recorded. ? ? Lab None recorded. ? ? Referral None recorded. ? ? Procedures None recorded. ? ? Surgeries None recorded. ? ? Imaging None recorded. ? ? Vitals Blood Pressure 102/52 mm[Hg]
--- OUTSIDE RECORDS SUMMARY | 2022-01-02 15:18 | XMS_ITS | Continuity of Care Document ---
:1955 Author Organization [facility] Adult Address [address] [place] [address]- Care Team Providers Name Role Phone Claire TOWNSEND, Tomy Rosales Primary Care Physician [facility] 10[facility]20 - 11/08/20 [facility] [address] [place] [address]- Allergies, Adverse Reactions, Alerts Substance Reaction Severity [...] toxoids (Td) 11/16/99 Given 1Result Comment: [11/12/2016] [id number] Note: VIS: 09/28/083Admin Note: VIS 08/17/[id number] History: CENTER [id number] Note: VIS: dmin Note: VIS: 08/02/057Admin Note: [...] 10 ML, # 1,065 mL, 5 Refills, [facility], 26, TAKE 2 TEASPOONFULS BY MOUTH 4TIMES A DAY (AFTER MEALS AND AT BEDTIME) / SHAKE... Start Date: 10/17/20 Status: Orderedbacitracin zinc 500 units/g topical ointment 1 application, Topically, 3 times a day, PRN abrasion, # 454 Gm, 1 Refills, Maintenance, 07/14/20 7:38:00 EDT, Ointment, [facility], Partial fill upon patient request if the prescription is for a schedule II opioid drug., 1 application Topically... Start Date: 07/14/20 Status: OrderedBenefiber oral powder for reconstitution 5 mL, By Mouth, 2 times a day, PRN as needed for constipation, # 155 Gm, 1 Refills, Maintenance, 03/30/20 13:47:00 EST, REC Powder, [facility], 5 mL By Mouth 2 times a day,PRN:as needed for constipation, 163, cm, 01/11/20 8:05:00 EST, Height, 72,... Start Date: 2/10/21 Status: Orderedcitalopram 20 mg oral tablet 3 [...] a day, # 120 capsule, 5 Refills, [facility], 163, cm, 10/13/20 9:36:00 EDT, Height [...] 07/29/20 11:03:00 EDT, Route to Pharmacy Electronically, [facility], 163, cm, 01/11/20 8:05:00 EST, Height Start Date: 07/29/20 Status: Orderedlubiprostone 24 mcg oral capsule 1 capsule = 24 mcg, By Mouth, 2 times a day, # 60 capsule, 0 Refills, Maintenance, 05/18/15 3:07:13,Capsule Start Date: 05/18/15 Status: OrderedMilk of Magnesia 8% oral suspension 30 mL, By Mouth, Daily at bedtime, FOR CONSTIPATION., # 900 mL, 5 Refills, [facility], 163, cm,10/13/20 9:36:00 EDT, Height Start [...] 0 Refills, Maintenance, EC Capsule Start Date: 1/7/12 Status: Orderedpolyethylene glycol 3350 oral powder for reconstitution See Instructions, Take 1 capfull 2x daily, # 1,054 Gm, 11 Refills, Maintenance, 07/01/20 11:19:00 EDT, [facility], Take 1 capfull 2x daily, 163, cm, 01/11/20 8:05:00 EST, Height Start Date: 07/01/20 Status: Orderedpsyllium 3.4 gm/11 gm oral powder for reconstitution = 3.4 Gm, By Mouth, 2 times a day, PRN as needed for constipation, Reguloid dissolve in 8 oz of fluid, # 390 Gm, 5 Refills, Maintenance, 07/27/19 15:38:00 EDT, REC Powder, [facility], 163, cm, 03/10/19 14:39:00 EST, Height, [...] mL, 11 Refills, Acute, 07/25/20 13:38:00 EDT, [facility], 163, cm, 01/11/20 8:05:00 EST, Height [...] disorder)(Confirmed) Pica(Confirmed) Active Unsteady gait(Confirmed) Active 1B 34025Xsnygpechzx 2011 normal, repeat 2021. Social History Social History Type Response Smoking Status Never smoker entered on: 07/22/15 Sex Male
--- OUTSIDE RECORDS SUMMARY | 2022-01-02 15:18 | XMS_ITS | Continuity of Care Document ---
:1955 Author Organization [facility] Adult Address [address] [place] [address]- Care Team Providers Name Role Phone Tomy Rangel MD Primary Care Physician [facility] 07[facility]14[facility]20 - 08/13/20 [facility] [address] [place] [address]- Allergies, Adverse Reactions, Alerts Substance Reaction Severity [...] toxoids (Td) 11/16/99 Given 1Result Comment: [11/12/2016] [id number] Note: VIS: 09/28/083Admin Note: VIS 08/17/[id number] History: CENTER [id number] Note: VIS: 01/06/086Admin Note: VIS: 08/02/057Admin Note: [...] 5 Refills, Soft Stop, 04/25/20 7:36:00 EST, [facility], TAKE 2 TEASPOONFULS BY MOUTH 3 TIMES A DAY AFTER MEAL... Start Date: 04/25/20 Status: Orderedbacitracin zinc 500 units/g topical ointment 1 application, Topically, 3 times a day, PRN abrasion, # 454 Gm, 1 Refills, Maintenance, 07/14/20 7:38:00 EDT, Ointment, [facility], Partial fill upon patient request if the prescription is for a schedule II opioid drug., 1 application Topically... Start Date: 07/14/20 Status: OrderedBenefiber oral powder for reconstitution 5 mL, By Mouth, 2 times a day, PRN as needed for constipation, # 155 Gm, 1 Refills, Maintenance, 03/30/20 13:47:00 EST, REC Powder, [facility], 5 mL By Mouth 2 times [...] capsule, 5 Refills, Maintenance, 05/12/20 10:52:00 EDT, [facility], 163, cm, 01/11/20 8:05:00 EST, Height [...] mL, 0 Refills, Maintenance, 11/18/19 14:25:00 EDT, [facility], 2 teasponn q 6 hour prn, [...] 07/29/20 11:03:00 EDT, Route to Pharmacy Electronically, [facility], 163, cm, 01/11/20 8:05:00 EST, Height [...] Refills, Maintenance, 07/27/19 15:38:00 EDT, REC Powder, [facility], 163, cm, 03/10/19 14:39:00 EST, [...] disorder)(Confirmed) Pica(Confirmed) Active Unsteady gait(Confirmed) Active 1B 07441Sneifbnlmdp 2011 normal, repeat 2021. Social History Social History Type Response Smoking Status Never smoker entered on: 07/22/15 Sex
--- OUTSIDE RECORDS SUMMARY | 2022-01-02 15:18 | XMS_ITS | Continuity of Care Document ---
:1955 Author Organization [facility] Adult Address [address] [place] [address]- Care Team Providers Name Role Phone Claire TOWNSEND, Tomy Rosales Primary Care Physician [facility]s): 03/27/21 - 04/26/21 [facility] [address] [place] [address]- Allergies, Adverse Reactions, Alerts Substance Reaction Severity [...] toxoids (Td) 11/16/99 Given 1Result Comment: [11/12/2016] [id number] Note: VIS: 09/28/083Admin Note: VIS 08/17/[id number] History: CENTER [id number] Note: VIS: 01/06/086Admin Note: VIS: 08/02/057Admin Note: [...] 10 ML, # 1,065 mL, 5 Refills, [facility], 26, TAKE 2 TEASPOONFULS BY MOUTH 4TIMES A DAY (AFTER MEALS AND AT BEDTIME) / SHAKE... Start Date: 03/30/21 Status: Orderedbacitracin zinc 500 units/g topical ointment 1 application, Topically, 3 times a day, PRN abrasion, # 454 Gm, 1 Refills, Maintenance, 07/14/20 7:38:00 EDT, Ointment, [facility], Partial fill upon patient request if the prescription is for a schedule II opioid drug., 1 application Topically... Start Date: 07/14/20 Status: OrderedBenefiber oral powder for reconstitution 5 mL, By Mouth, 2 times a day, PRN as needed for constipation, # 155 Gm, 1 Refills, Maintenance, 03/30/20 13:47:00 EST, REC Powder, [facility], 5 mL By Mouth 2 times [...] 200 MG, # 120 capsule, 5 Refills, [facility], 163, cm, 03/28/21 11:55:00 EST, Height [...] mL, 0 Refills, Maintenance, 11/18/19 14:25:00 EDT, [facility], 2 teasponn q 6 hour prn, [...] Replace Required Details, Route to Pharmacy Electronically, [facility], 163, cm, 10/13/20 9:36:00 EDT, Height Start Date: 02/02/21 Status: Orderedlubiprostone 24 mcg oral capsule 1 capsule = 24 mcg, By Mouth, 2 times a day, # 60 capsule, 0 Refills, Maintenance, 05/18/15 3:07:13,Capsule Start Date: 05/18/15 Status: OrderedMilk of Magnesia 8% oral suspension 30 mL, By Mouth, Daily at bedtime, FOR CONSTIPATION., # 900 mL, 5 Refills, [facility], 163, cm,10/13/20 9:36:00 EDT, Height Start [...] Refills, Maintenance, 07/27/19 15:38:00 EDT, REC Powder, [facility], 163, cm, 03/10/19 14:39:00 EST, Height, [...] day, SIMETHICONE., # 30 mL, 10 Refills, [facility], 163, cm, 10/13/20 9:36:00 EDT, Height [...] disorder)(Confirmed) Pica(Confirmed) Active Unsteady gait(Confirmed) Active 1B 54923Ukdhmkmpzti 2011 normal, repeat 2021. Social History Social History Type Response Smoking Status Never smoker entered on: 07/22/15 Sex Male
[2022-01-02 15:42] LABS: Procalcitonin 0.26 ng/mL
--- NOTE | 2022-01-02 15:51 | PC.NURSE ---
assumed care of pt at 1530 in ED overflow, vss - hypotensive, pt acting quiet but close to baseline per staff, pt has a hx of PICA, ivf running in 22G IV in R foot. staff member at bedside.
[2022-01-02] MEDS: Enoxaparin Sodium 40 MG/0.4 ML SYRINGE SUBCUT (16:49)
[2022-01-02] MEDS: 0.9 % Sodium Chloride Flush 3 ML SYRINGE IVFLUSH (16:50)
[2022-01-02] MEDS: Ampicillin Sodium/Sulbactam Na 3 GM in 0.9 % Sodium Chloride 100 ML IV (16:50)
[2022-01-02] MEDS: 0.9 % Sodium Chloride 1,000 ML 999 ML IVCONT ×2 (16:50→23:26)
[2022-01-02] MEDS: polyethylene glycoL 3350 17 GM POWD.PACK PO (20:54)
[2022-01-02] MEDS: Docusate Sodium 100 MG CAPSULE 200 MG PO (21:07)
--- NOTE | 2022-01-02 22:26 | PC.NURSE ---
med previous held due to pt spit up
[2022-01-02] MEDS: Omeprazole 40 MG CAPSULE.DR PO (22:30)
[2022-01-02] MEDS: OLANZapine 10 MG TABLET 20 MG PO (22:47)
[2022-01-02] MEDS: Magnesium Hydrox/Alum Hydrox 30 ML ORAL.SUSP 10 ML PO (22:48)
--- NOTE | 2022-01-02 23:55 | PC.NURSE ---
new order for med placed by pharmacy due to late initial administration. other med discontinued
[2022-01-03 00:39] LABS: Appearance Urine Clear; Color Urine Yellow; Glucose Urine UA Negative (Negative); Leukocyte Esterase Urine Negative (Negative); Nitrite Urine Negative (Negative); Urine Blood Negative (Negative); Urine Ketones Negative (Negative); Urine Protein Negative (Neg-Trace)
[2022-01-03] MEDS: Ampicillin Sodium/Sulbactam Na 3 GM in 0.9 % Sodium Chloride 100 ML IV ×4 (03:46→21:56)
[2022-01-03 04:48] VITALS: BP 91/47; RESP 16; TEMP 36.5; O2SAT 95
[2022-01-03 07:05] LABS: MANUAL DIFF FLAG NO
[2022-01-03 07:11] LABS: Basophils Percent Auto 0.2 % (0-2); Eosinophils Absolute Auto 0.1 X10*3/uL (0.0-0.4); Eosinophils Percent Auto 0.6 % (0-4); Hematocrit 27.7 % (42.0-52.0); Hemoglobin 8.8 g/dl (14.0-18.0); Imm Gran Abs Auto 0.05 X10*3/uL (0.00-0.03); Imm Gran Pct Auto 0.4 % (0.0-0.4); Lymphocytes Absolute Auto 2.9 X10*3/uL (1.2-4.9); Lymphocytes Percent Auto 22.9 % (20-40); Mean Corpuscular HGB Conc 31.8 g/dl (31.0-36.0); Mean Corpuscular Hemoglobin 30.7 pg (27.0-33.0); Mean Corpuscular Volume 96.5 fL (80.0-98.0); Mean Platelet Volume 9.5 fL (9.4-12.4); Monocytes Absolute Auto 0.5 X10*3/uL (0.1-1.2); Neutrophils Percent Auto 71.9 % (45-73); Platelet Count 230 X10*3/uL (160-400); Red Blood Count 2.87 X10*6/uL (4.60-5.80); Red Cell Distribution Width 15.6 % (11.0-16.0); White Blood Count 12.6 X10*3/uL (4.8-10.8)
[2022-01-03 07:31] LABS: Anion Gap 11 (12-20); Blood Urea Nitrogen 14 mg/dL (9-16); Calcium 8.3 mg/dL (8.4-10.2); Carbon Dioxide 26 mmol/L (22-29); Chloride 112 mmol/L (96-108); Creatinine Clr Calc Pharmacy 61.5; Estimated Glomerular Filt Rate > 60; Glucose Random 64 mg/dL (60-115); Potassium 3.8 mmol/L (3.3-5.1); Sodium 145 mmol/L (135-145)
[2022-01-03 07:35] VITALS: BP 107/43; PULSE 72; RESP 20; TEMP 37.2; O2SAT 92
[2022-01-03] MEDS: 0.9 % Sodium Chloride Flush 3 ML SYRINGE IVFLUSH (07:35)
[2022-01-03] MEDS: Docusate Sodium 100 MG CAPSULE 200 MG PO ×2 (07:35→21:52)
[2022-01-03] MEDS: Magnesium Hydrox/Alum Hydrox 30 ML ORAL.SUSP 10 ML PO ×4 (07:36→21:53)
[2022-01-03] MEDS: Doxazosin Mesylate 2 MG TABLET 8 MG PO (08:53)
[2022-01-03] MEDS: Finasteride 5 MG TABLET PO (08:53)
[2022-01-03] MEDS: polyethylene glycoL 3350 17 GM POWD.PACK PO ×2 (08:53→22:11)
[2022-01-03] MEDS: Escitalopram Oxalate 10 MG TABLET 30 MG PO (08:53)
[2022-01-03] MEDS: Loratadine 10 MG TABLET PO (08:53)
--- NOTE | 2022-01-03 09:07 | P.CDIC_ITS ---
CDI Concurrent Query Documentation Clarification: PHYSICIAN'S DOCUMENTATION REQUEST Date of Query: 01/03/22 0908 Patient Name: Mingo Henriquez Admit Date: 01/02/22 Dear Doctor, A review of the medical record indicates additional documentation may be needed. Please review below and update the documentation accordingly. Clinical Indicators: A diagnosis of seizure(s) was documented on 01/02/22. Risk Factors/Clinical Indicators/Treatments Per H&P: seizure disorder - continue valproate If possible, please further clarify in the Progress Notes, the type/etiology, acuity and control status of seizure(s): Specify type/etiology: * Idiopathic * Febrile (specify simple or complex) * Due to stroke * Post-traumatic * Due to external cause (specify if drug, alcohol, stress, etc.) * Absence * Generalized epilepsy (grand mal, myoclonic, atonic, clonic, tonic-clonic, etc.) * Focal or partial (specify simple or complex) * Petit mal * Recurrent - further specify type/etiology * Other * Unable to determine Specify acuity: * With status epilepticus * Without status epilepticus * Other * Unable to determine Specify control status: * Well controlled * Intractable * Pharmacoresistant * Poorly controlled * Refractory * Treatment resistant * Other * Unable to determine Use of terms such as suspected, likely, concern for, or probable (associated with a specific diagnosis that is being evaluated, monitored, or treated as if it exists) are acceptable and can be coded in the inpatient setting, when documented at the time of discharge. Thank you, Brianne Greenberg RN Extension: [phone] Please use your independent medical judgment in providing your response. THIS QUERY IS PART OF THE PERMANENT MEDICAL RECORD Provider Response: Other Other Diagnosis: Seizure disorder, unable to determine type
--- NOTE | 2022-01-03 09:07 | MHC.CDI.CONC ---
CDI Concurrent Query Documentation Clarification: PHYSICIAN'S DOCUMENTATION REQUEST Date of Query: 01/03/22 0908 Patient Name: Mingo Henriquez Admit Date: 01/02/22 Dear Doctor, A review of the medical record indicates additional documentation may be needed. Please review below and update the documentation accordingly. Clinical Indicators: A diagnosis of seizure(s) was documented on 01/02/22. Risk Factors/Clinical Indicators/Treatments Per H&P: seizure disorder - continue valproate If possible, please further clarify in the Progress Notes, the type/etiology, acuity and control status of seizure(s): Specify type/etiology: Idiopathic Febrile (specify simple or complex) Due to stroke Post-traumatic Due to external cause (specify if drug, alcohol, stress, etc.) Absence Generalized epilepsy (grand mal, myoclonic, atonic, clonic, tonic-clonic, etc.) Focal or partial (specify simple or complex) Petit mal Recurrent - further specify type/etiology Other Unable to determine Specify acuity: With status epilepticus Without status epilepticus Other Unable to determine Specify control status: Well controlled Intractable Pharmacoresistant Poorly controlled Refractory Treatment resistant Other Unable to determine Use of terms such as suspected, likely, concern for, or probable (associated with a specific diagnosis that is being evaluated, monitored, or treated as if it exists) are acceptable and can be coded in the inpatient setting, when documented at the time of discharge. Thank you, Brianne Greenberg RN Extension: [phone] Please use your independent medical judgment in providing your response. THIS QUERY IS PART OF THE PERMANENT MEDICAL RECORD Provider Response: Other Other Diagnosis: Seizure disorder, unable to determine type
--- NOTE | 2022-01-03 09:44 | P.PNIM_ITS ---
Subjective Subjective Date of Service: 01/03/22 Interval History: Seen in follow-up for aspiration pneumonia Interval history: Patient nonverbal, resting comfortably in bed without eviden ce of respiratory distress. No coughing. Patient BP still soft, seems to be baseline Review of Systems Review of Systems: Yes Unobtainable due to mental condition Physical Exam Vital Signs: Vital Signs: Last Vital Signs Temp 98.9 F 01/03/22 07:35 Pulse 72 01/03/22 07:35 Resp 20 01/03/22 07:35 BP 107/43 L 01/03/22 07:35 Pulse Ox 92 01/03/22 07:35 O2 Del Method 01/03/22 07:35 BMI result Body Mass Index 22.6 Constitutional - Awake and Alert, No apparent distress Eyes - PERRLA, EOMI Cardiovascular - S1S2, RRR, No edema Respiratory - Normal lung expansion, Normal respiratory effort, No respiratory distress, b/l LLL rhonchi Gastrointestinal - NT / ND; +BS; No rebound or guarding Extremities - no calf tenderness bilaterally, no swelling Skin - Warm/Dry Neurological - Alert, no motor deficit Psychological - Appropriate affect Objective Data Active Medications Acetaminophen (Acetaminophen 325 Mg Tablet) 650 mg PO Q6H PRN PRN Reason: Pain, Mild (Pain Scale 1-3) Al Hydroxide/Mg Hydroxide (Magnesium Hydrox/Alum Hydrox 30 Ml Oral.Susp) 10 ml PO QIDWMHS [facility] Last Admin: 01/03/22 07:36 Dose: 10 ml Documented By: SHILPIOPEDipti Benzonatate (Benzonatate 100 Mg Capsule) 100 mg PO TID PRN PRN Reason: Cough Docusate Sodium (Docusate Sodium 100 Mg Capsule) 200 mg PO BID@0800,1999 [facility] Last Admin: 01/03/22 07:35 Dose: 200 mg Documented By: JOHN Doxazosin Mesylate (Doxazosin Mesylate 2 Mg Tablet) 8 mg PO DAILY [facility]; Protocol Last Admin: 01/03/22 08:53 Dose: 8 mg Documented By: JOHN Enoxaparin Sodium (Enoxaparin Sodium 40 Mg/0.4 Ml Syringe) 40 mg SUBCUT Q24H [facility] Last Admin: 01/02/22 16:49 Dose: 40 mg Documented By: MADDENL Escitalopram Oxalate (Escitalopram Oxalate 10 Mg Tablet) 30 mg PO DAILY [facility] Last Admin: 01/03/22 08:53 Dose: 30 mg Documented By: JOHN Finasteride (Finasteride 5 Mg Tablet) 5 mg PO DAILY [facility] Last Admin: 01/03/22 08:53 Dose: 5 mg Documented By: JOHN Guaifenesin/Dextromethorphan (Guaifenesin Dm 200/20/10 Ml 10 Ml Syrup) 10 ml PO Q6H PRN PRN Reason: Cough Ampicillin Sodium/Sulbactam (Sodium 3 gm/ Sodium Chloride) 100 mls @ 200 mls/hr IV Q6H [facility] Last Admin: 01/03/22 08:53 Dose: 200 mls/hr Documented By: JOHN Sodium Chloride (Ns) 500 mls @ 500 mls/hr IV .Q1H [facility] Stop: 01/03/22 10:44 Loratadine (Loratadine 10 Mg Tablet) 10 mg PO DAILY [facility] Last Admin: 01/03/22 08:53 Dose: 10 mg Documented By: JOHN Magnesium Hydroxide (Milk Of Magnesia 30 Ml Oral.Susp) 30 ml PO DAILY PRN PRN Reason: Constipation Olanzapine (Olanzapine 10 Mg Tablet) 10 mg PO DAILY [facility] Olanzapine (Olanzapine 10 Mg Tablet) 20 mg PO BEDTIME [facility] Last Admin: 01/02/22 22:47 Dose: 20 mg Documented By: PRIYANKA Omeprazole (Omeprazole 40 Mg Capsule.Dr) 40 mg PO DAILY@1600 [facility] Last Admin: 01/02/22 22:30 Dose: 40 mg Documented By: PRIYANKA Pharmacy Consult (Consult Rx Perform Med Rec) 1 each MISCELLANE ONCE PRN PRN Reason: Consult order Pharmacy Consult (Consult Rx Perform Med Rec) 1 each MISCELLANE ONCE PRN PRN Reason: Consult order Polyethylene Glycol (Polyethylene Glycol 3350 17 Gm Powd.Pack) 17 gm PO BID [facility] Last Admin: 01/03/22 08:53 Dose: 17 gm Documented By: JOHN Psyllium Hydrophilic Mucilloid (Psyllium Seed 3.4 Gm Powd.Pack) 3.4 gm PO BID [facility] Last Admin: 01/03/22 08:53 Dose: 3.4 gm Documented By: JHON Simethicone (Simethicone 40 Mg/0.6 Ml 30 Ml Drops.Susp) 40 mg PO TID@0800,1600,2000 [facility] Last Admin: 01/03/22 07:35 Dose: 40 mg Documented By: SHILPIOPEDipti Sodium Chloride (0.9 % Sodium Chloride Flush 3 Ml Syringe) 3 ml IVFLUSH QSHIFT [facility] Last Admin: 01/03/22 07:35 Dose: 3 ml Documented By: SHILPIOPEB Valproic Acid (Valproic Acid (As Sodium Salt) 250 Mg/5 Ml Solution) 1,000 mg PO BID [facility] Last Admin: 01/02/22 22:30 Dose: 1,000 mg Documented By: JJ-DANNY Labs CBC & Chem 7: 01/03/22 06:09 01/03/22 06:09 Labs: Laboratory Results - last 24 hr 01/02/22 01/02/22 01/02/22 10:47 10:47 10:48 MCV 93.9 MCH 30.7 MCHC 32.8 RDW 15.2 Plt Count 291 D MPV 9.0 L Immature Gran % (Auto) Cancelled Neut % (Auto) Cancelled Lymph % (Auto) Cancelled [place] % (Auto) Cancelled Eos % (Auto) Cancelled Baso % (Auto) Cancelled Lymph # (Auto) Cancelled [place] # (Auto) Cancelled Eos # (Auto) Cancelled Baso # (Auto) Cancelled Abs Immat Gran (auto) Cancelled Absolute Neuts (auto) Cancelled Absolute Nucleated RBC 0.000 Nucleated RBC % (auto) 0.0 Neutrophils % (Manual) 79 H Band Neutrophils % 16 H Lymphocytes % (Manual) 2 L Monocytes % (Manual) 3 Abs Neuts (Manual) 12.4 H Lymphocytes # (Manual) 0.3 L Monocytes # (Manual) 0.4 Platelet Estimate NORMAL Plt Morphology Comment NORMAL RBC Morphology NOTED Hypochromasia 1+ (5-14) Anion Gap 14 Estim Creat Clear Calc 53.4 Estimated GFR 59 Random Glucose 90 Lactic Acid Lactic Acid F/U @ 2Hr Calcium 9.5 Magnesium 2.1 Total Bilirubin < 0.2 AST 20 D ALT 15 Alkaline Phosphatase 97 D Troponin I High Sens B-Natriuretic Peptide Total Protein 9.0 H Albumin 3.8 Procalcitonin 0.26 Urine Color Urine Appearance Urine pH Ur Specific [place] Urine Protein Urine Glucose (UA) Urine Ketones Urine Blood Urine Nitrite Ur Leukocyte Esterase Influenza Type A (PCR) Influenza Type B (PCR) RSV RNA Qual (PCR) SARS-CoV-2 RNA (RT-PCR) 01/02/22 01/02/22 01/02/22 10:48 10:48 10:48 MCV MCH MCHC RDW Plt Count MPV Immature Gran % (Auto) Neut % (Auto) Lymph % (Auto) [place] % (Auto) Eos % (Auto) Baso % (Auto) Lymph # (Auto) [place] # (Auto) Eos # (Auto) Baso # (Auto) Abs Immat Gran (auto) Absolute Neuts (auto) Absolute Nucleated RBC Nucleated RBC % (auto) Neutrophils % (Manual) Band Neutrophils % Lymphocytes % (Manual) Monocytes % (Manual) Abs Neuts (Manual) Lymphocytes # (Manual) Monocytes # (Manual) Platelet Estimate Plt Morphology Comment RBC Morphology Hypochromasia Anion Gap Estim Creat Clear Calc Estimated GFR Random Glucose Lactic Acid 2.3 H* Lactic Acid F/U @ 2Hr Calcium Magnesium Total Bilirubin AST ALT Alkaline Phosphatase Troponin I High Sens 3.4 B-Natriuretic Peptide 72 Total Protein Albumin Procalcitonin Urine Color Urine Appearance Urine pH Ur Specific [place] Urine Protein Urine Glucose (UA) Urine Ketones Urine Blood Urine Nitrite Ur Leukocyte Esterase Influenza Type A (PCR) Influenza Type B (PCR) RSV RNA Qual (PCR) SARS-CoV-2 RNA (RT-PCR) 01/02/22 01/02/22 01/03/22 12:41 13:33 00:17 MCV MCH MCHC RDW Plt Count MPV Immature Gran % (Auto) Neut % (Auto) Lymph % (Auto) [place] % (Auto) Eos % (Auto) Baso % (Auto) Lymph # (Auto) [place] # (Auto) Eos # (Auto) Baso # (Auto) Abs Immat Gran (auto) Absolute Neuts (auto) Absolute Nucleated RBC Nucleated RBC % (auto) Neutrophils % (Manual) Band Neutrophils % Lymphocytes % (Manual) Monocytes % (Manual) Abs Neuts (Manual) Lymphocytes # (Manual) Monocytes # (Manual) Platelet Estimate Plt Morphology Comment RBC Morphology Hypochromasia Anion Gap Estim Creat Clear Calc Estimated GFR Random Glucose Lactic Acid Lactic Acid F/U @ 2Hr 1.6 Calcium Magnesium Total Bilirubin AST ALT Alkaline Phosphatase Troponin I High Sens B-Natriuretic Peptide Total Protein Albumin Procalcitonin Urine Color Yellow Urine Appearance Clear Urine pH 7.0 Ur Specific [place] 1.010 Urine Protein Negative Urine Glucose (UA) Negative Urine Ketones Negative Urine Blood Negative Urine Nitrite Negative Ur Leukocyte Esterase Negative Influenza Type A (PCR) NEGATIVE Influenza Type B (PCR) NEGATIVE RSV RNA Qual (PCR) NEGATIVE SARS-CoV-2 RNA (RT-PCR) NEGATIVE 01/03/22 01/03/22 06:09 06:09 MCV 96.5 MCH 30.7 MCHC 31.8 RDW 15.6 Plt Count 230 MPV 9.5 Immature Gran % (Auto) 0.4 Neut % (Auto) 71.9 Lymph % (Auto) 22.9 [place] % (Auto) 4.0 Eos % (Auto) 0.6 Baso % (Auto) 0.2 Lymph # (Auto) 2.9 [place] # (Auto) 0.5 Eos # (Auto) 0.1 Baso # (Auto) 0.0 Abs Immat Gran (auto) 0.05 H Absolute Neuts (auto) 9.0 H Absolute Nucleated RBC 0.000 Nucleated RBC % (auto) 0.0 Neutrophils % (Manual) Band Neutrophils % Lymphocytes % (Manual) Monocytes % (Manual) Abs Neuts (Manual) Lymphocytes # (Manual) Monocytes # (Manual) Platelet Estimate Plt Morphology Comment RBC Morphology Hypochromasia Anion Gap 11 L Estim Creat Clear Calc 61.5 Estimated GFR > 60 Random Glucose 64 Lactic Acid Lactic Acid F/U @ 2Hr Calcium 8.3 L D Magnesium Total Bilirubin AST ALT Alkaline Phosphatase Troponin I High Sens B-Natriuretic Peptide Total Protein Albumin Procalcitonin Urine Color Urine Appearance Urine pH Ur Specific [place] Urine Protein Urine Glucose (UA) Urine Ketones Urine Blood Urine Nitrite Ur Leukocyte Esterase Influenza Type A (PCR) Influenza Type B (PCR) RSV RNA Qual (PCR) SARS-CoV-2 RNA (RT-PCR) Assessment and Plan (1) Severe sepsis: Status: Acute (2) Pneumonia: Status: Acute Plan 66-year-old nonverbal male [facility] with autism, intellectual disability, OCD, bipolar disorder, seizure disorder, dysphagia, hypertension, hep B carrier, chronic constipation, nephrogenic diabetes insipidus, PICA, chronic normocytic anemia, CKD stage III she GERD, and recurrent aspiration pneumonia admitted for aspiration pneumonia with severe sepsis # severe sepsis secondary to aspiration pneumonia- resolved -WBC trending down, HD -treat pneumonia per below -vitals q.4h # pneumonia, likely aspiration-with severe sepsis as above -admit to med surg -IV Unasyn 3 mg q.6h -check MRSA swab, Legionella/pneumococcal urine antigens, and full respiratory panel -penitentiary has historically refused PEG tube despite recurrent admissions for aspiration pneumonia due to quality of life -per penitentiary and BOILER/CHILLER OPERATOR eval from 12/28, pureed diet and regular thin liquids with thin liquids only being given 1/2 tsp at a time. 1:1 feeds -BOILER/CHILLER OPERATOR to follow -aspiration precautions -Transition to PO abx pending #Low BP- baseline -No true hypotension -Give 1L NS # seizure disorder, unable to determine type - continue valproate # mood disorder - continue citalopram, olanzapine # GERD - continue PPI # prostatism - continue finasteride, doxazosin # VTE prophylaxis: LMWH # code status: full Patient requires ongoing inpt stay for management of aspiration pneumonia with expert consultation to evaluate for future aspiration risk given recurrence as well as IVF for low MAP and close monitoring of VS Quality Stroke Does the patient have a stroke diagnosis?: No VTE Prior VTE?: No VTE Risk Level:: Medical - moderate - high VTE Device Contraindication: Treatment Not Indicated VTE Drug Contraindication: N/A - Med Ordered
[2022-01-03] MEDS: 0.9 % Sodium Chloride 500 ML IV (10:01)
[2022-01-03] MEDS: OLANZapine 10 MG TABLET PO ×3 (10:04→22:14)
[2022-01-03 11:02] LABS: MRSA Nasal PCR NEGATIVE (Negative); SA Nasal PCR NEGATIVE (Negative)
--- NOTE | 2022-01-03 12:09 | MHC.CM.PN ---
Addendum entered by Armida Medina, RN 01/03/22 12:44: DDS LONG TERM NURSE [facility] CELL [phone], PLEASE CALL WHEN READY FOR D/C TO DETERMINE IF CAN PROVIDE TRANSPORTATION VS BLS. Original Note: IMM DELIVERD 01/03/22 TO SISTER/GUARDIAN KHURRAM NAVARRETE [phone], KHURRAM AWARE PT MAY D/C BACK TO LATER TODAY, CM ATTEMPTED TO SPEAK W/PT'S GH BLEACH SUPERVISOR LION AT [phone] AND SPOKE W/STAFF MEMBER LINDA WHO WILL GIVE CM CONTACT NAME AND NUMBER TO PT'S NURSE NIYAH IN CASE OF QUESTIONS. ANTIC PT TO RETURN TO LATER TODAY VS TOMORROW, [facility] FOR TRANSPORT.
[2022-01-03 13:16] VITALS: BP 121/68; PULSE 56; RESP 20; TEMP 36.6; O2SAT 94
[2022-01-03 16:21] VITALS: BP 127/58; PULSE 84; RESP 16; TEMP 36.7; O2SAT 93
[2022-01-03] MEDS: Omeprazole 40 MG CAPSULE.DR PO (16:37)
[2022-01-03] MEDS: Enoxaparin Sodium 40 MG/0.4 ML SYRINGE SUBCUT (16:38)
--- NOTE | 2022-01-03 16:43 | MHC.SLORD ---
Addendum entered and electronically signed by MERCY Tolliver 01/03/22 17:11: SW Original Note: Speech Language Pathology Order Status: Pt is familiar to DAIRY HUSBANDRY TEACHER team here, as pt was seen numerous times for recurrent aspiration pneumonia since 2019 and most recently seen early December 2021. Pt had previous MBSS done at another facility in July 2019 reportedly showing silent aspiration. Pt is known to chronically aspirate. Pt's family reportedly wishes for pt to still eat despite the risks; they have previously opted out of all alterative means including g-tube, as pt gets great pleasure from eating. At half-way, pt has been on pureed diet and thin liquids by half teaspoon w/ strategies: oral care before and after PO intake, small bites, check oral cavity, spoon to elicit double swallow, liquid wash. DAIRY HUSBANDRY TEACHER team has been recommending this baseline half-way diet with strategies and oral care given family's wishes for pt to continue with PO. DAIRY HUSBANDRY TEACHER from [facility], who has been seeing pt for 9 years, called [facility] this afternoon. DAIRY HUSBANDRY TEACHER from [facility] and she confirmed known chronic aspiration and 1/2 teaspoon puree/thin liquid diet. Pt seen by DAIRY HUSBANDRY TEACHER today during lunch observation. DAIRY HUSBANDRY TEACHER provided cues listed above to aide during feeding. Pt demonstrated moderate residue following small bites of pureed solids. Residual was not cleared with subsequent sips of thin liquids or dry swallow. Residual was only cleared when given bites of applesauce.
[2022-01-03 19:33] VITALS: BP 132/79; PULSE 65; RESP 18; TEMP 36.9; O2SAT 93
[2022-01-03] MEDS: OLANZapine 10 MG TABLET 20 MG PO (22:22)
[2022-01-04] VITALS (7 sets, daily range): BP systolic 102–126; BP diastolic 55–72; PULSE 64–82; RESP 14–22; TEMP 36.1–37.1; O2SAT 91–94
[2022-01-04] MEDS: 0.9 % Sodium Chloride Flush 3 ML SYRINGE IVFLUSH ×4 (00:03→23:13)
[2022-01-04] MEDS: Ampicillin Sodium/Sulbactam Na 3 GM in 0.9 % Sodium Chloride 100 ML IV ×4 (03:01→19:58)
[2022-01-04 05:44] LABS: MANUAL DIFF FLAG NO
[2022-01-04 05:51] LABS: Basophils Percent Auto 0.4 % (0-2); Eosinophils Absolute Auto 0.1 X10*3/uL (0.0-0.4); Eosinophils Percent Auto 1.2 % (0-4); Hematocrit 28.7 % (42.0-52.0); Hemoglobin 9.4 g/dl (14.0-18.0); Imm Gran Abs Auto 0.02 X10*3/uL (0.00-0.03); Imm Gran Pct Auto 0.2 % (0.0-0.4); Lymphocytes Absolute Auto 2.8 X10*3/uL (1.2-4.9); Lymphocytes Percent Auto 32.8 % (20-40); Mean Corpuscular HGB Conc 32.8 g/dl (31.0-36.0); Mean Corpuscular Hemoglobin 30.8 pg (27.0-33.0); Mean Corpuscular Volume 94.1 fL (80.0-98.0); Mean Platelet Volume 9.2 fL (9.4-12.4); Monocytes Absolute Auto 0.4 X10*3/uL (0.1-1.2); Monocytes Percent Auto 5.1 % (2-11); Neutrophils Absolute Auto 5.1 x10*3/uL (2.0-8.3); Neutrophils Percent Auto 60.3 % (45-73); Platelet Count 247 X10*3/uL (160-400); Red Blood Count 3.05 X10*6/uL (4.60-5.80); Red Cell Distribution Width 15.3 % (11.0-16.0); White Blood Count 8.4 X10*3/uL (4.8-10.8)
[2022-01-04 06:04] LABS: Anion Gap 11 (12-20); Blood Urea Nitrogen 12 mg/dL (9-16); Calcium 8.6 mg/dL (8.4-10.2); Carbon Dioxide 26 mmol/L (22-29); Chloride 112 mmol/L (96-108); Creatinine Clr Calc Pharmacy 55.7; Estimated Glomerular Filt Rate > 60; Glucose Random 77 mg/dL (60-115); Potassium 3.8 mmol/L (3.3-5.1); Sodium 145 mmol/L (135-145)
--- NOTE | 2022-01-04 06:44 | PC.NURSE ---
RN communicated with [facility] Rep [place] who wanted an update and notified hospital facility that patient will have an aide as and when they have available. Aide will be responsible for patient's feeding. PICA, Aspiration Precautions noted on notice Board.
[2022-01-04] MEDS: polyethylene glycoL 3350 17 GM POWD.PACK PO ×2 (08:50→19:58)
[2022-01-04] MEDS: Magnesium Hydrox/Alum Hydrox 30 ML ORAL.SUSP 10 ML PO ×4 (08:51→19:54)
[2022-01-04] MEDS: Docusate Sodium 100 MG CAPSULE 200 MG PO ×2 (08:52→19:57)
[2022-01-04] MEDS: OLANZapine 10 MG TABLET PO (08:53)
[2022-01-04] MEDS: Albuterol Sulfate (0.083%) 2.5 MG/3 ML VIAL.NEB INHALE (08:53)
[2022-01-04] MEDS: Loratadine 10 MG TABLET PO (08:54)
[2022-01-04] MEDS: Doxazosin Mesylate 2 MG TABLET 8 MG PO (08:54)
[2022-01-04] MEDS: Escitalopram Oxalate 10 MG TABLET 30 MG PO (08:54)
[2022-01-04] MEDS: Finasteride 5 MG TABLET PO (09:10)
--- NOTE | 2022-01-04 12:31 | HO.PM.IMPN ---
Subjective Subjective Date of Service: 01/04/22 Interval History: Seen in follow-up for aspiration pneumonia Interval history: Patient nonverbal, resting comfortably in bed with tachypnea and now hypoxia. Still on unasyn for aspiration pneumonia with supervised feeds Review of Systems Review of Systems: Yes Unobtainable due to mental condition Physical Exam Vital Signs: Vital Signs: Last Vital Signs Temp 98.7 F 01/04/22 11:28 Pulse 69 01/04/22 11:28 Resp 16 01/04/22 11:28 BP 102/57 L 01/04/22 11:28 Pulse Ox 91 L 01/04/22 11:28 O2 Del Method 01/04/22 11:28 O2 Flow Rate 2.0 01/04/22 11:28 BMI result Body Mass Index 22.6 Constitutional - Awake and Alert, comfortably resting with knees bent to chest Eyes - PERRLA, EOMI Cardiovascular - S1S2, RRR, 1+ b/l pitting edema Respiratory - Normal lung expansion, diminished lung sounds bilaterally with faint bll rhonchi/wheezing upper lobes with tachypnea, increased WOB at 86% on RA. Gastrointestinal - NT / ND; +BS; No rebound or guarding Extremities - no calf tenderness bilaterally, no swelling Skin - Warm/Dry Neurological - Alert, no motor deficit Psychological - Appropriate affect Objective Data Active Medications Acetaminophen (Acetaminophen 325 Mg Tablet) 650 mg PO Q6H PRN PRN Reason: Pain, Mild (Pain Scale 1-3) Al Hydroxide/Mg Hydroxide (Magnesium Hydrox/Alum Hydrox 30 Ml Oral.Susp) 10 ml PO QIDWMHS [facility] Last Admin: 01/04/22 12:05 Dose: 10 ml Documented By: BELEM Benzonatate (Benzonatate 100 Mg Capsule) 100 mg PO TID PRN PRN Reason: Cough Docusate Sodium (Docusate Sodium 100 Mg Capsule) 200 mg PO BID@0800,1999 [facility] Last Admin: 01/04/22 08:52 Dose: 200 mg Documented By: BELEM Doxazosin Mesylate (Doxazosin Mesylate 2 Mg Tablet) 8 mg PO DAILY [facility]; Protocol Last Admin: 01/04/22 08:54 Dose: 8 mg Documented By: BELEM Enoxaparin Sodium (Enoxaparin Sodium 40 Mg/0.4 Ml Syringe) 40 mg SUBCUT Q24H [facility] Last Admin: 01/03/22 16:38 Dose: 40 mg Documented By: DANNI Escitalopram Oxalate (Escitalopram Oxalate 10 Mg Tablet) 30 mg PO DAILY [facility] Last Admin: 01/04/22 08:54 Dose: 30 mg Documented By: BELEM Finasteride (Finasteride 5 Mg Tablet) 5 mg PO DAILY [facility] Last Admin: 01/04/22 09:10 Dose: 5 mg Documented By: BELEM Guaifenesin/Dextromethorphan (Guaifenesin Dm 200/20/10 Ml 10 Ml Syrup) 10 ml PO Q6H PRN PRN Reason: Cough Ampicillin Sodium/Sulbactam (Sodium 3 gm/ Sodium Chloride) 100 mls @ 200 mls/hr IV Q6H [facility] Last Infusion: 01/04/22 09:33 Dose: 0 mls/hr Documented By: BELEM Loratadine (Loratadine 10 Mg Tablet) 10 mg PO DAILY [facility] Last Admin: 01/04/22 08:54 Dose: 10 mg Documented By: BELEM Magnesium Hydroxide (Milk Of Magnesia 30 Ml Oral.Susp) 30 ml PO DAILY PRN PRN Reason: Constipation Olanzapine (Olanzapine 10 Mg Tablet) 10 mg PO DAILY [facility] Last Admin: 01/03/22 22:14 Dose: 10 mg Documented By: BENITA Olanzapine (Olanzapine 10 Mg Tablet) 20 mg PO BEDTIME [facility] Last Admin: 01/03/22 22:22 Dose: 20 mg Documented By: BENITA Omeprazole (Omeprazole 40 Mg Capsule.) 40 mg PO DAILY@1600 [facility] Last Admin: 01/03/22 16:37 Dose: 40 mg Documented By: DANNI Pharmacy Consult (Consult Rx Perform Med Rec) 1 each MISCELLANE ONCE PRN PRN Reason: Consult order Pharmacy Consult (Consult Rx Perform Med Rec) 1 each MISCELLANE ONCE PRN PRN Reason: Consult order Polyethylene Glycol (Polyethylene Glycol 3350 17 Gm Powd.Pack) 17 gm PO BID [facility] Last Admin: 01/04/22 08:50 Dose: 17 gm Documented By: BELEM Psyllium Hydrophilic Mucilloid (Psyllium Seed 3.4 Gm Powd.Pack) 3.4 gm PO BID [facility] Last Admin: 01/04/22 08:50 Dose: 3.4 gm Documented By: BELEM Simethicone (Simethicone 40 Mg/0.6 Ml 30 Ml Drops.Susp) 40 mg PO TID@0800,1600,2000 [facility] Last Admin: 01/04/22 09:10 Dose: 40 mg Documented By: BELEM Sodium Chloride (0.9 % Sodium Chloride Flush 3 Ml Syringe) 3 ml IVFLUSH QSHIFT [facility] Last Admin: 01/04/22 08:49 Dose: 3 ml Documented By: BELEM Valproic Acid (Valproic Acid (As Sodium Salt) 250 Mg/5 Ml Solution) 1,000 mg PO BID [facility] Last Admin: 01/04/22 08:51 Dose: 1,000 mg Documented By: BELEM Labs CBC & Chem 7: 01/04/22 05:33 01/04/22 05:33 Labs: Laboratory Results - last 24 hr 01/04/22 01/04/22 05:33 05:33 MCV 94.1 MCH 30.8 MCHC 32.8 RDW 15.3 Plt Count 247 MPV 9.2 L Immature Gran % (Auto) 0.2 Neut % (Auto) 60.3 Lymph % (Auto) 32.8 [place] % (Auto) 5.1 Eos % (Auto) 1.2 Baso % (Auto) 0.4 Lymph # (Auto) 2.8 [place] # (Auto) 0.4 Eos # (Auto) 0.1 Baso # (Auto) 0.0 Abs Immat Gran (auto) 0.02 Absolute Neuts (auto) 5.1 Absolute Nucleated RBC 0.000 Nucleated RBC % (auto) 0.0 Anion Gap 11 L Estim Creat Clear Calc 55.7 Estimated GFR > 60 Random Glucose 77 Calcium 8.6 Microbiology Microbiology Results: Microbiology 01/02/22 11:32 Blood Culture - Preliminary Blood - Venous No growth after 24 hours. 01/02/22 10:47 Blood Culture - Preliminary Blood - Venous No growth after 24 hours. Assessment and Plan (1) Severe sepsis: Status: Acute (2) Pneumonia: Status: Acute Plan 66-year-old nonverbal male resident of snf with autism, intellectual disability, OCD, bipolar disorder, seizure disorder, dysphagia, hypertension, hep B carrier, chronic constipation, nephrogenic diabetes insipidus, PICA, chronic normocytic anemia, CKD stage III she GERD, and recurrent aspiration pneumonia admitted for aspiration pneumonia with severe sepsis # severe sepsis secondary to aspiration pneumonia- resolved -WBC trending down, HD -treat pneumonia per below -vitals q.4h #Acute hypoxemic respiratory failure -O2 sat 86% on exam today. Likely related to low lung volumes and patient positioning- sits with knees bent to chest -Less likely worsening infection trending down, afebrile, vitals otherwise normal -However lungs with rhonchi and wheezing. Will check Chest CT # pneumonia, likely aspiration -admit to med surg -IV Unasyn 3 mg q.6h -check MRSA swab, Legionella/pneumococcal urine antigens, and full respiratory panel -snf has historically refused PEG tube despite recurrent admissions for aspiration pneumonia due to quality of life -per snf and HYDRAULIC MODELING ENGINEER eval from 12/28, pureed diet and regular thin liquids with thin liquids only being given 1/2 tsp at a time. 1:1 feeds -HYDRAULIC MODELING ENGINEER to follow -aspiration precautions -Blood cultures negative -Transition to PO abx pending #Low BP- baseline -No true hypotension -monitor bp # seizure disorder, unable to determine type - continue valproate # mood disorder - continue citalopram, olanzapine # GERD - continue PPI # prostatism - continue finasteride, doxazosin # VTE prophylaxis: LMWH # code status: full Patient requires ongoing inpt stay for management of aspiration pneumonia now with acute hypoxia requiring supplemental O2 and further work up Quality Stroke Does the patient have a stroke diagnosis?: No VTE Prior VTE?: No VTE Risk Level:: Medical - moderate - high VTE Device Contraindication: Treatment Not Indicated VTE Drug Contraindication: N/A - Med Ordered
--- NOTE | 2022-01-04 13:05 | MHC.CM.PN ---
Addendum entered by Deana Mariscal 01/04/22 15:35: [facility] IS AWARE THERE HAS BEEN NO DECISION MADE REGARDING FEED TUBE PLACEMENT SHE REPORTS THEY WILL BE ABLE TO TAKE PT BACK WITH ONE, HOWEVER THEY WILL NEED A FEW DAYS FOR STAFF TRAINING PRIOR TO HIS RETURN PLEASE FORWARD ANY INFO RELATED TO FEEDS TO [facility] SOON IT IS KNOWN Original Note: CM INFORMED PT IS NOT READY TO DC TODAY CM CALLED [facility] FROM [phone] AND PROVIDED UPDATE
[2022-01-04] MEDS: Omeprazole 40 MG CAPSULE.DR PO (15:20)
[2022-01-04] MEDS: Enoxaparin Sodium 40 MG/0.4 ML SYRINGE SUBCUT (15:20)
--- NOTE | 2022-01-04 17:23 | MHC.SLORD ---
Addendum entered and electronically signed by Luisa Ya MA, CCC-SYRUP SHED SUPERVISOR 01/04/22 17:27: D.S. Original Note: Speech Language Pathology Order Status: SYRUP SHED SUPERVISOR attempted to see pt for PO trials this afternoon. Pt was sound asleep. Aide from care home at bedside who reported pt was very lethargic. Pt not seen for PO trials.
[2022-01-04] MEDS: OLANZapine 10 MG TABLET 20 MG PO (19:57)
[2022-01-05] VITALS (7 sets, daily range): BP systolic 94–135; BP diastolic 52–77; PULSE 54–75; RESP 14–18; TEMP 36–36.5; O2SAT 92–98
[2022-01-05] MEDS: Ampicillin Sodium/Sulbactam Na 3 GM in 0.9 % Sodium Chloride 100 ML IV ×4 (03:23→20:06)
[2022-01-05 06:08] LABS: MANUAL DIFF FLAG NO
[2022-01-05 06:10] LABS: Basophils Percent Auto 0.1 % (0-2); Eosinophils Absolute Auto 0.1 X10*3/uL (0.0-0.4); Hematocrit 29.7 % (42.0-52.0); Hemoglobin 9.6 g/dl (14.0-18.0); Imm Gran Abs Auto 0.01 X10*3/uL (0.00-0.03); Imm Gran Pct Auto 0.1 % (0.0-0.4); Lymphocytes Absolute Auto 2.7 X10*3/uL (1.2-4.9); Lymphocytes Percent Auto 38.5 % (20-40); Mean Corpuscular HGB Conc 32.3 g/dl (31.0-36.0); Mean Corpuscular Hemoglobin 30.5 pg (27.0-33.0); Mean Corpuscular Volume 94.3 fL (80.0-98.0); Monocytes Absolute Auto 0.4 X10*3/uL (0.1-1.2); Monocytes Percent Auto 5.7 % (2-11); Neutrophils Absolute Auto 3.7 x10*3/uL (2.0-8.3); Neutrophils Percent Auto 53.6 % (45-73); Platelet Count 227 X10*3/uL (160-400); Red Blood Count 3.15 X10*6/uL (4.60-5.80); Red Cell Distribution Width 15.6 % (11.0-16.0)
[2022-01-05 06:29] LABS: Anion Gap 12 (12-20); Blood Urea Nitrogen 17 mg/dL (9-16); Calcium 8.6 mg/dL (8.4-10.2); Carbon Dioxide 25 mmol/L (22-29); Chloride 110 mmol/L (96-108); Creatinine Clr Calc Pharmacy 58.2; Estimated Glomerular Filt Rate > 60; Glucose Random 78 mg/dL (60-115); Potassium 4.1 mmol/L (3.3-5.1); Sodium 143 mmol/L (135-145)
[2022-01-05] MEDS: polyethylene glycoL 3350 17 GM POWD.PACK PO ×2 (08:13→20:30)
[2022-01-05] MEDS: Magnesium Hydrox/Alum Hydrox 30 ML ORAL.SUSP 10 ML PO ×4 (08:15→20:29)
[2022-01-05] MEDS: Docusate Sodium 100 MG CAPSULE 200 MG PO (08:17)
[2022-01-05] MEDS: Escitalopram Oxalate 10 MG TABLET 30 MG PO (08:17)
[2022-01-05] MEDS: Doxazosin Mesylate 2 MG TABLET 8 MG PO (08:17)
[2022-01-05] MEDS: OLANZapine 10 MG TABLET PO (08:17)
[2022-01-05] MEDS: Finasteride 5 MG TABLET PO (08:17)
[2022-01-05] MEDS: 0.9 % Sodium Chloride Flush 3 ML SYRINGE IVFLUSH ×3 (08:17→20:12)
[2022-01-05] MEDS: Loratadine 10 MG TABLET PO (08:17)
--- NOTE | 2022-01-05 09:35 | PM.CNGS ---
History of Present Illness Consult details Consult date: 01/05/22 <Armida Morris PA-C - Last Filed: 01/05/22 10:02> Reason for consult: other (PEG tube placement) <HERMAN An Last Filed: 01/05/22 10:02> Requesting physician: Dasha Gtz <HERMAN An Last Filed: 01/05/22 10:02> Narrative: 66 year old nonverbal male with extensive PMH including autism, bipolar disorder, seizure disorder, hypertension, hep B carrier, chronic constipation, nephrogenic diabetes insipidus, CKD stage III who presented to the ED with an increasingly productive cough and behavioral changes. He had a recent admission for aspiration PNA and was discharged on 12/28/21 on Augmentin. He was found to febrile in the ED and tachypneic and tachycardic with a leukocytosis and lactic acidosis. CXR showed bilateral increased interstitial markings without any focal consolidation or pleural effusion. He was admitted to the medical service for aspiration pneumonia with severe sepsis and started on IV unasyn. The patient has had multiple admissions for aspiration pneumonia. Per EMR/retirement staff, he has had a MBSS at another facility which showed silent aspiration. PEG tube has been discussed with family in the past given his history of chronic aspiration and they have refused in favor of allowing him to eat for quality of life with full recognition of risks of aspiration pneumonia. During this admission, hospitalist service have discussed PEG tube placement with his secondary guardian, Sherry, as his primary guardian, mother, now with advanced dementia.? Sherry is in agreement with possible PEG tube placement. Surgery was therefore consulted. <Armida Morris PA-C - Last Filed: 01/05/22 10:02> Review of Systems Review of Systems: Cannot be obtained as patient is nonverbal <HERMAN An Last Filed: 01/05/22 10:02> [facility] Past Medical History Medical History: Medical History (Updated 01/05/22 @ 00:03 by Background Daemon) Anemia Autism Bipolar 1 disorder BPH (benign prostatic hyperplasia) Chronic renal disease Developmental non-verbal disorder Dysphagia GERD (gastroesophageal reflux disease) Hiatal hernia Hydrocele Hyperlipemia Hypertension Mentally challenged OCD (obsessive compulsive disorder) Pica Pneumonia Seizures <Armida Morris PA-C - Last Filed: 01/05/22 10:02> Surgical History Surgical History: Surgical History (Updated 01/05/22 @ 09:48 by Armida Morris PA-C) H/O exploratory laparotomy History of colectomy <Armida Morris PA-C - Last Filed: 01/05/22 10:02> Social History Social History: Social History Household Members: Other Household Members Other:: retirement Housing: Other Housing Other:: retirement Do you presently have visiting nurse or other home services: Yes Unable to assess alcohol history related to: Unable to respond Alcohol intake: never Patient Tobacco Use Status: Never used Tobacco Advance Directives Date on File: 12/24/21 service: No Current occupational status: disabled <Armida Morris PA-C - Last Filed: 01/05/22 10:02> Meds Allergies/Adverse reactions: Allergies Allergy/AdvReac Type Severity Reaction Status Date / Time haloperidol [From HALDOL] AdvReac Unknown UNKNOWN Verified 12/09/19 11:22 metoclopramide [From REGLAN] AdvReac Unknown UNKNOWN Verified 12/09/19 11:22 <Armida Morris PA-C - Last Filed: 01/05/22 10:02> Active Medications: Current Medications Acetaminophen (Acetaminophen 325 Mg Tablet) 650 mg PO Q6H PRN PRN Reason: Pain, Mild (Pain Scale 1-3) Al Hydroxide/Mg Hydroxide (Magnesium Hydrox/Alum Hydrox 30 Ml Oral.Susp) 10 ml PO QIDWMHS [facility] Last Admin: 01/05/22 08:15 Dose: 10 ml Benzonatate (Benzonatate 100 Mg Capsule) 100 mg PO TID PRN PRN Reason: Cough Docusate Sodium (Docusate Sodium 100 Mg Capsule) 200 mg PO BID@0800,2000 [facility] Last Admin: 01/05/22 08:17 Dose: 200 mg Doxazosin Mesylate (Doxazosin Mesylate 2 Mg Tablet) 8 mg PO DAILY [facility]; Protocol Last Admin: 01/05/22 08:17 Dose: 8 mg Enoxaparin Sodium (Enoxaparin Sodium 40 Mg/0.4 Ml Syringe) 40 mg SUBCUT Q24H [facility] Last Admin: 01/04/22 15:20 Dose: 40 mg Escitalopram Oxalate (Escitalopram Oxalate 10 Mg Tablet) 30 mg PO DAILY [facility] Last Admin: 01/05/22 08:17 Dose: 30 mg Finasteride (Finasteride 5 Mg Tablet) 5 mg PO DAILY [facility] Last Admin: 01/05/22 08:17 Dose: 5 mg Guaifenesin/Dextromethorphan (Guaifenesin Dm 200/20/10 Ml 10 Ml Syrup) 10 ml PO Q6H PRN PRN Reason: Cough Ampicillin Sodium/Sulbactam (Sodium 3 gm/ Sodium Chloride) 100 mls @ 200 mls/hr IV Q6H [facility] Last Infusion: 01/05/22 08:52 Dose: Infused Loratadine (Loratadine 10 Mg Tablet) 10 mg PO DAILY [facility] Last Admin: 01/05/22 08:17 Dose: 10 mg Magnesium Hydroxide (Milk Of Magnesia 30 Ml Oral.Susp) 30 ml PO DAILY PRN PRN Reason: Constipation Olanzapine (Olanzapine 10 Mg Tablet) 10 mg PO DAILY [facility] Last Admin: 01/05/22 08:17 Dose: 10 mg Olanzapine (Olanzapine 10 Mg Tablet) 20 mg PO BEDTIME [facility] Last Admin: 01/04/22 19:57 Dose: 20 mg Omeprazole (Omeprazole 40 Mg Capsule.Dr) 40 mg PO DAILY@1600 [facility] Last Admin: 01/04/22 15:20 Dose: 40 mg Pharmacy Consult (Consult Rx Perform Med Rec) 1 each MISCELLANE ONCE PRN PRN Reason: Consult order Pharmacy Consult (Consult Rx Perform Med Rec) 1 each MISCELLANE ONCE PRN PRN Reason: Consult order Polyethylene Glycol (Polyethylene Glycol 3350 17 Gm Powd.Pack) 17 gm PO BID [facility] Last Admin: 01/05/22 08:13 Dose: 17 gm Psyllium Hydrophilic Mucilloid (Psyllium Seed 3.4 Gm Powd.Pack) 3.4 gm PO BID [facility] Last Admin: 01/05/22 08:13 Dose: 3.4 gm Simethicone (Simethicone 40 Mg/0.6 Ml 30 Ml Drops.Susp) 40 mg PO TID@0800,1600,2000 [facility] Last Admin: 01/05/22 08:15 Dose: 40 mg Sodium Chloride (0.9 % Sodium Chloride Flush 3 Ml Syringe) 3 ml IVFLUSH QSHIFT [facility] Last Admin: 01/05/22 08:17 Dose: 3 ml Valproic Acid (Valproic Acid (As Sodium Salt) 250 Mg/5 Ml Solution) 1,000 mg PO BID [facility] Last Admin: 01/05/22 08:16 Dose: 1,000 mg <Armida Morris PA-C - Last Filed: 01/05/22 10:02> Home medications: Home Medications Medication Instructions Recorded Confirmed Last Taken Type aluminum hydrox-magnesium carb 95 10 ml PO QIDWMHS 12/09/19 01/02/22 12/23/21 History mg-358 mg/15 mL oral suspension (Acid Gone Antacid) citalopram 20 mg tablet 60 mg PO DAILY 12/09/19 01/02/22 12/23/21 History docusate sodium 100 mg capsule 200 mg PO BID@0800,199912/09/19 01/02/22 12/23/21 History loratadine 10 mg tablet 10 mg PO DAILY 12/09/19 01/02/22 12/23/21 History olanzapine 10 mg tablet 10 mg PO DAILY 12/09/19 01/02/22 12/23/21 History olanzapine 20 mg tablet 20 mg PO BEDTIME 12/09/19 01/02/22 12/23/21 History omeprazole 20 mg capsule,delayed 40 mg PO DAILY@1600 12/09/19 01/02/22 12/23/21 History release polyethylene glycol 3350 17 17 g PO BID 12/09/19 01/02/22 12/23/21 History gram/dose oral powder simethicone 40 mg/0.6 mL oral 40 mg PO TID@0800,1600,199912/09/19 01/02/22 12/23/21 History drops,suspension (Gas Relief (simethicone)) valproic acid (as sodium salt) 250 1,000 mg PO BID 12/09/19 01/02/22 12/23/21 History mg/5 mL oral solution acetaminophen 325 mg tablet 650 mg PO Q6H PRN Pain 10/03/20 01/02/22 Unknown History dextromethorphan-guaifenesin 10 10 ml PO Q6H PRN Cough 10/03/20 01/02/22 Unknown History mg-100 mg/5 mL oral liquid bacitracin zinc 500 unit/gram 1 appl topical BID PRN Wound Care 12/24/21 01/02/22 Unknown History topical ointment wheat dextrin 3 gram/3.5 gram oral 1 packet PO BID 12/24/21 01/02/22 12/23/21 History powder (Best Fiber) magnesium hydroxide 400 mg/5 mL 30 ml PO DAILY PRN Constipation 01/02/22 01/02/22 Unknown History oral suspension (Milk of Magnesia) <Armida Morris PA-C - Last Filed: 01/05/22 10:02> Physical Exam Vital Signs: Vital Signs: Last Vital Signs Temp 97.3 F 01/05/22 08:00 Pulse 71 01/05/22 08:00 Resp 16 01/05/22 08:00 BP 135/77 01/05/22 08:00 Pulse Ox 96 01/05/22 08:00 O2 Del Method 01/05/22 08:00 O2 Flow Rate 2 01/04/22 19:42 BMI result Body Mass Index 22.6 <Armida Morris PA-C - Last Filed: 01/05/22 10:02> Const: General: comfortable, no acute distress and alert <Armida Morris PA-C Last Filed: 01/05/22 10:02> GI: Inspection: No distended and Yes scar (midline well healed abd scar ) <Armida Morris PA-C Last Filed: 01/05/22 10:02> Palpation (GI): Soft to palpation, nontender, no guarding and not rigid <Armida Morris PA-C Last Filed: 01/05/22 10:02> Percussion: Yes normal to percussion <HERMAN An Last Filed: 01/05/22 10:02> Abdomen image: 1. <Armida Morris PA-C - Last Filed: 01/05/22 10:02> Skin: General skin exam: no rashes or lesions noted <HERMAN An Last Filed: 01/05/22 10:02> Extrem: General: Yes no clubbing, cyanosis or edema <Armida Morris PA-C - Last Filed: 01/05/22 10:02> Results Labs Result diagrams: : 01/05/22 06:02 01/05/22 06:02 <HERMAN An Last Filed: 01/05/22 10:02> Labs: Abnormal lab results 01/05/22 01/05/22 Range/Units 06:02 06:02 RBC 3.15 L (4.60-5.80) X10*6/uL Hgb 9.6 L (14.0-18.0) g/dl Hct 29.7 L (42.0-52.0) % MPV 9.0 L (9.4-12.4) fL Chloride 110 H (96-108) mmol/L BUN 17 H (9-16) mg/dL Short CBC 01/05/22 Range/Units 06:02 WBC 7.0 (4.8-10.8) X10*3/uL Hgb 9.6 L (14.0-18.0) g/dl Hct 29.7 L (42.0-52.0) % Plt Count 227 (160-400) X10*3/uL BMP 01/05/22 06:02 Sodium 143 Potassium 4.1 Chloride 110 H Carbon Dioxide 25 BUN 17 H Creatinine 1.12 Calcium 8.6 Urine 01/03/22 Range/Units 00:17 Urine Color Yellow Urine Appearance Clear Urine pH 7.0 (5.0-9.0) Ur Specific [place] 1.010 (1.005-1.025) Urine Protein Negative (Neg-Trace) mg/dL Urine Glucose (UA) Negative (Negative) mg/dL All other labs normal. <Armida Morris PA-C - Last Filed: 01/05/22 10:02> Assessment and Plan (1) Severe sepsis: Status: Acute <HERMAN An Last Filed: 01/05/22 10:02> (2) Aspiration pneumonia: Status: Resolved <HERMAN nA Last Filed: 01/05/22 10:02> Patient will a long history of recurrent aspiration His mother apparently did not want him to have a PEG placed His sister Sherry is now the healthcare proxy as the mother has developed dementia Sherry wants to proceed with PEG placement Had a long discussion with her about the technique of PEG tube placement as well as the risks, benefits, and alternatives at phone number [phone] She says she understands and wants to proceed The patient does have a long history of motility issues in has chronic ileus He had a subtotal colectomy in the past KUB shows diffuse dilatation of the bowel loops Abdomen soft and benign Explained to Sherry that there is a small chance that we may not be able to put the PEG safely if there are overlying bowel loops If this happens, we may need to discuss option open G-tube placement for jejunostomy down the line She says he understands Patient seen and examined independently <Car Palmer MD - Last Filed: 01/05/22 13:31> 66 year old male with multiple medical problems admitted for aspiration PNA. Pt with multiple admissions for aspiration PNA. MBSS at another facility showing silent aspiration. Family initially refusing any intervention for feeding tubes on prior admissions but now in agreement. He does have a history of subtotal colectomy for megacolon in 2005 and has required exploratory laparotomy with enterolysis of SBO in the past. He also has had admissions for SBO in the past. His prior CT scans abd/pelvis and chest have been reviewed and does seem like PEG tube may be able to be performed. Will plan for PEG tube placement, possible open gastrostomy tube placement early next week once PNA improved. To be discussed with guardian, Sherry. Case discussed with Dr. Palmer. <Armida Morris PA-C - Last Filed: 01/05/22 10:02> Procedures Date of Service Date of Service: 01/05/22 <Armida Morris PA-C - Last Filed: 01/05/22 10:02>
--- NOTE | 2022-01-05 11:06 | HO.PM.IMPN ---
Subjective Subjective Date of Service: 01/05/22 Interval History: cc: cough, fever, tachypnea, concern for aspiration interval history:appears comfortable Constitutional Constitutional: Reports no additional constitutional complaints Eyes Eyes: Reports no additional eye complaints Physical Exam Vital Signs: Vital Signs: Last Vital Signs Temp 97.3 F 01/05/22 08:00 Pulse 71 01/05/22 08:00 Resp 16 01/05/22 08:00 BP 135/77 01/05/22 08:00 Pulse Ox 96 01/05/22 08:00 O2 Del Method 01/05/22 08:00 O2 Flow Rate 2 01/04/22 19:42 BMI result Body Mass Index 22.6 General: alert, no acute distress, non verbal Resp: diminished bilateral, no accessory muscles used CVS: S1,S2,RRR GI: soft, non tender, non distended Neuro: motor grossly intact, alert Psych: impaired insight Objective Data Active Medications Acetaminophen (Acetaminophen 325 Mg Tablet) 650 mg PO Q6H PRN PRN Reason: Pain, Mild (Pain Scale 1-3) Al Hydroxide/Mg Hydroxide (Magnesium Hydrox/Alum Hydrox 30 Ml Oral.Susp) 10 ml PO QIDWMHS [facility] Last Admin: 01/05/22 08:15 Dose: 10 ml Documented By: BELEM Benzonatate (Benzonatate 100 Mg Capsule) 100 mg PO TID PRN PRN Reason: Cough Docusate Sodium (Docusate Sodium 100 Mg Capsule) 200 mg PO BID@0800,2000 [facility] Last Admin: 01/05/22 08:17 Dose: 200 mg Documented By: BELEM Doxazosin Mesylate (Doxazosin Mesylate 2 Mg Tablet) 8 mg PO DAILY [facility]; Protocol Last Admin: 01/05/22 08:17 Dose: 8 mg Documented By: BELEM Enoxaparin Sodium (Enoxaparin Sodium 40 Mg/0.4 Ml Syringe) 40 mg SUBCUT Q24H [facility] Last Admin: 01/04/22 15:20 Dose: 40 mg Documented By: BELEM Escitalopram Oxalate (Escitalopram Oxalate 10 Mg Tablet) 30 mg PO DAILY [facility] Last Admin: 01/05/22 08:17 Dose: 30 mg Documented By: BELEM Finasteride (Finasteride 5 Mg Tablet) 5 mg PO DAILY [facility] Last Admin: 01/05/22 08:17 Dose: 5 mg Documented By: BELEM Guaifenesin/Dextromethorphan (Guaifenesin Dm 200/20/10 Ml 10 Ml Syrup) 10 ml PO Q6H PRN PRN Reason: Cough Ampicillin Sodium/Sulbactam (Sodium 3 gm/ Sodium Chloride) 100 mls @ 200 mls/hr IV Q6H [facility] Last Infusion: 01/05/22 08:52 Dose: 0 mls/hr Documented By: BELEM Loratadine (Loratadine 10 Mg Tablet) 10 mg PO DAILY [facility] Last Admin: 01/05/22 08:17 Dose: 10 mg Documented By: BELEM Magnesium Hydroxide (Milk Of Magnesia 30 Ml Oral.Susp) 30 ml PO DAILY PRN PRN Reason: Constipation Olanzapine (Olanzapine 10 Mg Tablet) 10 mg PO DAILY [facility] Last Admin: 01/05/22 08:17 Dose: 10 mg Documented By: BELEM Olanzapine (Olanzapine 10 Mg Tablet) 20 mg PO BEDTIME [facility] Last Admin: 01/04/22 19:57 Dose: 20 mg Documented By: PETERJ Omeprazole (Omeprazole 40 Mg Capsule.Dr) 40 mg PO DAILY@1600 [facility] Last Admin: 01/04/22 15:20 Dose: 40 mg Documented By: BELEM Pharmacy Consult (Consult Rx Perform Med Rec) 1 each MISCELLANE ONCE PRN PRN Reason: Consult order Pharmacy Consult (Consult Rx Perform Med Rec) 1 each MISCELLANE ONCE PRN PRN Reason: Consult order Polyethylene Glycol (Polyethylene Glycol 3350 17 Gm Powd.Pack) 17 gm PO BID [facility] Last Admin: 01/05/22 08:13 Dose: 17 gm Documented By: BELEM Psyllium Hydrophilic Mucilloid (Psyllium Seed 3.4 Gm Powd.Pack) 3.4 gm PO BID [facility] Last Admin: 01/05/22 08:13 Dose: 3.4 gm Documented By: BELEM Simethicone (Simethicone 40 Mg/0.6 Ml 30 Ml Drops.Susp) 40 mg PO TID@0800,1600,2000 [facility] Last Admin: 01/05/22 08:15 Dose: 40 mg Documented By: BELEM Sodium Chloride (0.9 % Sodium Chloride Flush 3 Ml Syringe) 3 ml IVFLUSH QSHIFT [facility] Last Admin: 01/05/22 08:17 Dose: 3 ml Documented By: BLEEM Valproic Acid (Valproic Acid (As Sodium Salt) 250 Mg/5 Ml Solution) 1,000 mg PO BID [facility] Last Admin: 01/05/22 08:16 Dose: 1,000 mg Documented By: BELEM Labs CBC & Chem 7: 01/05/22 06:02 01/05/22 06:02 Labs: Laboratory Results - last 24 hr 01/05/22 01/05/22 06:02 06:02 MCV 94.3 MCH 30.5 MCHC 32.3 RDW 15.6 Plt Count 227 MPV 9.0 L Immature Gran % (Auto) 0.1 Neut % (Auto) 53.6 Lymph % (Auto) 38.5 Gove % (Auto) 5.7 Eos % (Auto) 2.0 Baso % (Auto) 0.1 Lymph # (Auto) 2.7 Gove # (Auto) 0.4 Eos # (Auto) 0.1 Baso # (Auto) 0.0 Abs Immat Gran (auto) 0.01 Absolute Neuts (auto) 3.7 Absolute Nucleated RBC 0.000 Nucleated RBC % (auto) 0.0 Anion Gap 12 Estim Creat Clear Calc 58.2 Estimated GFR > 60 Random Glucose 78 Calcium 8.6 Microbiology Microbiology Results: Microbiology 01/02/22 11:32 Blood Culture - Preliminary Blood - Venous No growth after 48 hours. 01/02/22 10:47 Blood Culture - Preliminary Blood - Venous No growth after 48 hours. Assessment and Plan (1) Severe sepsis: Status: Acute (2) Pneumonia: Status: Resolved Plan 66-year-old nonverbal male resident of shelter with autism, intellectual disability, OCD, bipolar disorder, seizure disorder, dysphagia, hypertension, hep B carrier, chronic constipation, nephrogenic diabetes insipidus, PICA, chronic normocytic anemia, CKD stage III she GERD, and recurrent aspiration pneumonia admitted for aspiration pneumonia with severe sepsis severe sepsis and acute hyopxic respiatory failure secondary to aspiration pneumonia in patient with known dysphagia now off o2 continue unasyn shelter has historically refused PEG tube despite recurrent admissions for aspiration pneumonia due to quality of life per shelter and [employer] eval from 12/28, pureed diet and regular thin liquids with thin liquids only being given 1/2 tsp at a time. 1:1 feeds aspiration precautions per cristel, plan now to pursue PEG tube, general surgery consult appreciated, plan for PEG early next week seizure disorder, unable to determine type continue valproate mood disorder continue citalopram, olanzapine GERD continue PPI BPH continue finasteride, doxazosin VTE prophylaxis: LMWH code status: full reason for continued hospitalization: plan for gtube placement prior to discharge Quality Stroke Does the patient have a stroke diagnosis?: No VTE Prior VTE?: No VTE Risk Level:: Medical - moderate - high VTE Device Contraindication: Treatment Not Indicated VTE Drug Contraindication: N/A - Med Ordered
--- NOTE | 2022-01-05 12:28 | MHC.CM.PN ---
EMR REVIEWED, PER HOSPITALIST PT TO HAVE PEG TUBE PLACED EARLY NEXT WEEK, CM RETURNED CALL FROM PT'S LONGTERM NURSE WILMA AT 12:20PM [phone], SIM UPDATED AND RPEORTS THEY DO HAVE ANOTHER GTUBE CLIENT IN HOME SO TRAINING FOR PT WILL GO SMOOTHLY, SIM IS REQUESTING CM USE [facility] [phone] FOR GTUBE SUPPLIES/NUTRITION. CM WILL SEND REFERRAL, SIM DECLINES NEED FOR VNA SERVICE.
[2022-01-05] MEDS: Omeprazole 40 MG CAPSULE.DR PO (15:20)
[2022-01-05] MEDS: Enoxaparin Sodium 40 MG/0.4 ML SYRINGE SUBCUT (15:20)
--- NOTE | 2022-01-05 16:29 | MHC.SLORD ---
Speech Language Pathology Order Status: Per MD note: Per guardian, plan now to pursue PEG tube, general surgery consult appreciated, plan for PEG early next week.
[2022-01-05] MEDS: OLANZapine 10 MG TABLET 20 MG PO (20:29)
[2022-01-06] MEDS: Ampicillin Sodium/Sulbactam Na 3 GM in 0.9 % Sodium Chloride 100 ML IV ×4 (02:32→19:30)
[2022-01-06 03:02] VITALS: RESP 16
[2022-01-06 07:22] VITALS: BP 140/80; PULSE 70; RESP 16; TEMP 36.4; O2SAT 96
--- NOTE | 2022-01-06 08:47 | HO.PM.IMPN ---
Subjective Subjective Date of Service: 01/06/22 Interval History: cc: cough, fever, tachypnea, concern for aspiration interval history:comfortable, no respiratory difficulties Review of Systems no fever no sob Physical Exam Vital Signs: Vital Signs: Last Vital Signs Temp 97.6 F 01/06/22 07:22 Pulse 70 01/06/22 07:22 Resp 16 01/06/22 07:22 BP 140/80 H 01/06/22 07:22 Pulse Ox 96 01/06/22 07:22 O2 Del Method 01/06/22 07:22 O2 Flow Rate 2 01/04/22 19:42 BMI result Body Mass Index 22.6 Const: Other: General: alert, no distress Resp: CTA bilateral CVS: S1,S2,RRR GI: +BS, NT, no distention Skin: No rash Neuro: motor grossly intact Psych: appropriate affect Objective Data Active Medications Acetaminophen (Acetaminophen 325 Mg Tablet) 650 mg PO Q6H PRN PRN Reason: Pain, Mild (Pain Scale 1-3) Al Hydroxide/Mg Hydroxide (Magnesium Hydrox/Alum Hydrox 30 Ml Oral.Susp) 10 ml PO QIDWMHS [facility] Last Admin: 01/05/22 20:29 Dose: 10 ml Documented By: JASSON Benzonatate (Benzonatate 100 Mg Capsule) 100 mg PO TID PRN PRN Reason: Cough Docusate Sodium (Docusate Sodium 100 Mg Capsule) 200 mg PO BID@0800,1999 [facility] Last Admin: 01/05/22 20:16 Dose: Not Given Documented By: JASSON Non-Admin Reason: need crushed Doxazosin Mesylate (Doxazosin Mesylate 2 Mg Tablet) 8 mg PO DAILY [facility]; Protocol Last Admin: 01/05/22 08:17 Dose: 8 mg Documented By: BELEM Enoxaparin Sodium (Enoxaparin Sodium 40 Mg/0.4 Ml Syringe) 40 mg SUBCUT Q24H [facility] Last Admin: 01/05/22 15:20 Dose: 40 mg Documented By: BELEM Escitalopram Oxalate (Escitalopram Oxalate 10 Mg Tablet) 30 mg PO DAILY [facility] Last Admin: 01/05/22 08:17 Dose: 30 mg Documented By: BELEM Finasteride (Finasteride 5 Mg Tablet) 5 mg PO DAILY [facility] Last Admin: 01/05/22 08:17 Dose: 5 mg Documented By: BELEM Guaifenesin/Dextromethorphan (Guaifenesin Dm 200/20/10 Ml 10 Ml Syrup) 10 ml PO Q6H PRN PRN Reason: Cough Ampicillin Sodium/Sulbactam (Sodium 3 gm/ Sodium Chloride) 100 mls @ 200 mls/hr IV Q6H [facility] Last Infusion: 01/06/22 03:05 Dose: 0 mls/hr Documented By: JASSON Loratadine (Loratadine 10 Mg Tablet) 10 mg PO DAILY [facility] Last Admin: 01/05/22 08:17 Dose: 10 mg Documented By: BELEM Magnesium Hydroxide (Milk Of Magnesia 30 Ml Oral.Susp) 30 ml PO DAILY PRN PRN Reason: Constipation Olanzapine (Olanzapine 10 Mg Tablet) 10 mg PO DAILY [facility] Last Admin: 01/05/22 08:17 Dose: 10 mg Documented By: BELEM Olanzapine (Olanzapine 10 Mg Tablet) 20 mg PO BEDTIME [facility] Last Admin: 01/05/22 20:29 Dose: 20 mg Documented By: JASSON Omeprazole (Omeprazole 40 Mg Capsule.Dr) 40 mg PO DAILY@1600 [facility] Last Admin: 01/05/22 15:20 Dose: 40 mg Documented By: BLEEM Pharmacy Consult (Consult Rx Perform Med Rec) 1 each MISCELLANE ONCE PRN PRN Reason: Consult order Pharmacy Consult (Consult Rx Perform Med Rec) 1 each MISCELLANE ONCE PRN PRN Reason: Consult order Polyethylene Glycol (Polyethylene Glycol 3350 17 Gm Powd.Pack) 17 gm PO BID [facility] Last Admin: 01/05/22 20:30 Dose: 17 gm Documented By: JASSON Psyllium Hydrophilic Mucilloid (Psyllium Seed 3.4 Gm Powd.Pack) 3.4 gm PO BID [facility] Last Admin: 01/05/22 20:29 Dose: 3.4 gm Documented By: JASSON Simethicone (Simethicone 40 Mg/0.6 Ml 30 Ml Drops.Susp) 40 mg PO TID@0800,1600,2000 [facility] Last Admin: 01/05/22 20:29 Dose: 40 mg Documented By: JASSON Sodium Chloride (0.9 % Sodium Chloride Flush 3 Ml Syringe) 3 ml IVFLUSH QSHIFT [facility] Last Admin: 01/05/22 20:12 Dose: 3 ml Documented By: JASSON Valproic Acid (Valproic Acid (As Sodium Salt) 250 Mg/5 Ml Solution) 1,000 mg PO BID [facility] Last Admin: 01/05/22 20:30 Dose: 1,000 mg Documented By: JASSON Labs CBC & Chem 7: 01/05/22 06:02 01/05/22 06:02 Assessment and Plan (1) Severe sepsis: Status: Acute (2) Pneumonia: Status: Resolved Plan 66-year-old nonverbal male resident of [facility] with autism, intellectual disability, OCD, bipolar disorder, seizure disorder, dysphagia, hypertension, hep B carrier, chronic constipation, nephrogenic diabetes insipidus, PICA, chronic normocytic anemia, CKD stage III she GERD, and recurrent aspiration pneumonia admitted for aspiration pneumonia with severe sepsis severe sepsis and acute hyopxic respiatory failure secondary to aspiration pneumonia in patient with known dysphagia now off o2, sepsis resolved. continue unasyn sn[facility] has historically refused PEG tube despite recurrent admissions for aspiration pneumonia due to quality of life per sn[facility] and [employer] eval from 12/28, pureed diet and regular thin liquids with thin liquids only being given 1/2 tsp at a time. 1:1 feeds aspiration precautions per cristel, plan now to pursue PEG tube, general surgery consult appreciated, plan for PEG next by Dr. Palmer seizure disorder, unable to determine type continue valproate mood disorder continue citalopram, olanzapine GERD continue PPI BPH continue finasteride, doxazosin VTE prophylaxis: LMWH code status: full reason for continued hospitalization: plan for gtube placement prior to discharge Quality Stroke Does the patient have a stroke diagnosis?: No VTE Prior VTE?: No VTE Risk Level:: Medical - moderate - high VTE Device Contraindication: Treatment Not Indicated VTE Drug Contraindication: N/A - Med Ordered
[2022-01-06] MEDS: polyethylene glycoL 3350 17 GM POWD.PACK PO ×2 (10:16→19:35)
[2022-01-06] MEDS: Magnesium Hydrox/Alum Hydrox 30 ML ORAL.SUSP 10 ML PO ×4 (10:16→19:35)
[2022-01-06] MEDS: Loratadine 10 MG TABLET PO (10:18)
[2022-01-06] MEDS: Doxazosin Mesylate 2 MG TABLET 8 MG PO (10:18)
[2022-01-06] MEDS: OLANZapine 10 MG TABLET PO (10:18)
[2022-01-06] MEDS: Escitalopram Oxalate 10 MG TABLET 30 MG PO (10:18)
[2022-01-06] MEDS: Finasteride 5 MG TABLET PO (10:18)
[2022-01-06] MEDS: 0.9 % Sodium Chloride Flush 3 ML SYRINGE IVFLUSH ×3 (10:19→19:36)
[2022-01-06 10:57] VITALS: BP 153/90; PULSE 120; RESP 18; TEMP 36.1; O2SAT 92
[2022-01-06 15:05] VITALS: BP 122/64; PULSE 72; RESP 18; TEMP 36.6; O2SAT 96
[2022-01-06] MEDS: Enoxaparin Sodium 40 MG/0.4 ML SYRINGE SUBCUT (15:41)
[2022-01-06] MEDS: Omeprazole 40 MG CAPSULE.DR PO (15:42)
[2022-01-06] MEDS: OLANZapine 10 MG TABLET 20 MG PO (19:35)
[2022-01-06 19:42] VITALS: BP 139/78; PULSE 86; RESP 16; TEMP 36.2; O2SAT 91
[2022-01-06 22:59] VITALS: BP 111/71; PULSE 67; RESP 16; TEMP 36.5; O2SAT 91
[2022-01-07] MEDS: Ampicillin Sodium/Sulbactam Na 3 GM in 0.9 % Sodium Chloride 100 ML IV ×4 (02:43→19:42)
[2022-01-07 03:33] VITALS: BP 120/65; PULSE 68; RESP 16; TEMP 36.4; O2SAT 91
[2022-01-07 07:14] VITALS: BP 142/74; PULSE 72; RESP 16; TEMP 36.1; O2SAT 96
--- NOTE | 2022-01-07 07:59 | HO.PM.IMPN ---
Subjective Subjective Date of Service: 01/07/22 Interval History: cc: cough, fever, tachypnea, concern for aspiration interval history: no new issues, comfortable, tolerating present diet Review of Systems no fever no sob Physical Exam Vital Signs: Vital Signs: Last Vital Signs Temp 97 F 01/07/22 07:14 Pulse 72 01/07/22 07:14 Resp 16 01/07/22 07:14 BP 142/74 H 01/07/22 07:14 Pulse Ox 96 01/07/22 07:14 O2 Del Method 01/07/22 07:14 O2 Flow Rate 2 01/04/22 19:42 BMI result Body Mass Index 22.6 Const: Other: General: alert, no distress Resp: CTA bilateral CVS: S1,S2,RRR GI: +BS, NT, no distention Skin: No rash Neuro: motor grossly intact Psych: appropriate affect Objective Data Active Medications Acetaminophen (Acetaminophen 325 Mg Tablet) 650 mg PO Q6H PRN PRN Reason: Pain, Mild (Pain Scale 1-3) Al Hydroxide/Mg Hydroxide (Magnesium Hydrox/Alum Hydrox 30 Ml Oral.Susp) 10 ml PO QIDWMHS [facility] Last Admin: 01/06/22 19:35 Dose: 10 ml Documented By: JASSON Benzonatate (Benzonatate 100 Mg Capsule) 100 mg PO TID PRN PRN Reason: Cough Docusate Sodium (Docusate Sodium 100 Mg Capsule) 200 mg PO BID@0800,2000 [facility] Last Admin: 01/06/22 19:27 Dose: Not Given Documented By: JASSON Non-Admin Reason: unable to crush Doxazosin Mesylate (Doxazosin Mesylate 2 Mg Tablet) 8 mg PO DAILY [facility]; Protocol Last Admin: 01/06/22 10:18 Dose: 8 mg Documented By: COTEMA Enoxaparin Sodium (Enoxaparin Sodium 40 Mg/0.4 Ml Syringe) 40 mg SUBCUT Q24H [facility] Last Admin: 01/06/22 15:41 Dose: 40 mg Documented By: ALLENEMA Escitalopram Oxalate (Escitalopram Oxalate 10 Mg Tablet) 30 mg PO DAILY [facility] Last Admin: 01/06/22 10:18 Dose: 30 mg Documented By: COTEMA Finasteride (Finasteride 5 Mg Tablet) 5 mg PO DAILY [facility] Last Admin: 01/06/22 10:18 Dose: 5 mg Documented By: IRMA Guaifenesin/Dextromethorphan (Guaifenesin Dm 200/20/10 Ml 10 Ml Syrup) 10 ml PO Q6H PRN PRN Reason: Cough Ampicillin Sodium/Sulbactam (Sodium 3 gm/ Sodium Chloride) 100 mls @ 200 mls/hr IV Q6H [facility] Last Infusion: 01/07/22 03:14 Dose: 0 mls/hr Documented By: JASSON Loratadine (Loratadine 10 Mg Tablet) 10 mg PO DAILY [facility] Last Admin: 01/06/22 10:18 Dose: 10 mg Documented By: IRMA Magnesium Hydroxide (Milk Of Magnesia 30 Ml Oral.Susp) 30 ml PO DAILY PRN PRN Reason: Constipation Olanzapine (Olanzapine 10 Mg Tablet) 10 mg PO DAILY [facility] Last Admin: 01/06/22 10:18 Dose: 10 mg Documented By: IRMA Olanzapine (Olanzapine 10 Mg Tablet) 20 mg PO BEDTIME [facility] Last Admin: 01/06/22 19:35 Dose: 20 mg Documented By: JASSON Omeprazole (Omeprazole 40 Mg Capsule.Dr) 40 mg PO DAILY@1600 [facility] Last Admin: 01/06/22 15:42 Dose: 40 mg Documented By: IRMA Pharmacy Consult (Consult Rx Perform Med Rec) 1 each MISCELLANE ONCE PRN PRN Reason: Consult order Pharmacy Consult (Consult Rx Perform Med Rec) 1 each MISCELLANE ONCE PRN PRN Reason: Consult order Polyethylene Glycol (Polyethylene Glycol 3350 17 Gm Powd.Pack) 17 gm PO BID [facility] Last Admin: 01/06/22 19:35 Dose: 17 gm Documented By: JASSON Psyllium Hydrophilic Mucilloid (Psyllium Seed 3.4 Gm Powd.Pack) 3.4 gm PO BID [facility] Last Admin: 01/06/22 19:35 Dose: 3.4 gm Documented By: JASSON Simethicone (Simethicone 40 Mg/0.6 Ml 30 Ml Drops.Susp) 40 mg PO TID@0800,1600,2000 [facility] Last Admin: 01/06/22 19:34 Dose: 40 mg Documented By: JASSON Sodium Chloride (0.9 % Sodium Chloride Flush 3 Ml Syringe) 3 ml IVFLUSH QSHIFT [facility] Last Admin: 01/06/22 19:36 Dose: 3 ml Documented By: JASSON Valproic Acid (Valproic Acid (As Sodium Salt) 250 Mg/5 Ml Solution) 1,000 mg PO BID [facility] Last Admin: 01/06/22 19:34 Dose: 1,000 mg Documented By: JASSON Labs CBC & Chem 7: 01/05/22 06:02 01/05/22 06:02 Assessment and Plan (1) Severe sepsis: Status: Acute (2) Pneumonia: Status: Resolved Plan A 66-year-old nonverbal male resident of [facility] with autism, intellectual disability, OCD, bipolar disorder, seizure disorder, dysphagia, hypertension, hep B carrier, chronic constipation, nephrogenic diabetes insipidus, PICA, chronic normocytic anemia, CKD stage III she GERD, and recurrent aspiration pneumonia admitted for aspiration pneumonia with severe sepsis severe sepsis and acute hypoxic respiratory failure secondary to aspiration pneumonia in patients with known dysphagia sepsis resolved. Off O2 continue Unasyn the [facility] has historically refused PEG tube despite recurrent admissions for aspiration pneumonia due to quality of life per [facility] and [employer] eval from 12/28, pureed diet, and regular thin liquids with thin liquids only being given 1/2 tsp at a time. 1:1 feeds aspiration precautions per guardian, plan now to pursue PEG tube, general surgery consult appreciated, plan for PEG next by Dr. Palmer seizure disorder, unable to determine the type continue valproate mood disorder continue citalopram, olanzapine GERD continue PPI BPH continue finasteride, doxazosin VTE prophylaxis: LMWH code status: full reason for continued hospitalization: plan for gtube placement before discharge Quality Stroke Does the patient have a stroke diagnosis?: No VTE Prior VTE?: No VTE Risk Level:: Medical - moderate - high VTE Device Contraindication: Treatment Not Indicated VTE Drug Contraindication: N/A - Med Ordered
[2022-01-07] MEDS: Magnesium Hydrox/Alum Hydrox 30 ML ORAL.SUSP 10 ML PO ×4 (08:40→19:54)
[2022-01-07] MEDS: Finasteride 5 MG TABLET PO (08:40)
[2022-01-07] MEDS: Escitalopram Oxalate 10 MG TABLET 30 MG PO (08:40)
[2022-01-07] MEDS: polyethylene glycoL 3350 17 GM POWD.PACK PO ×2 (08:40→19:53)
[2022-01-07] MEDS: OLANZapine 10 MG TABLET PO (08:41)
[2022-01-07] MEDS: Loratadine 10 MG TABLET PO (08:41)
[2022-01-07] MEDS: 0.9 % Sodium Chloride Flush 3 ML SYRINGE IVFLUSH ×3 (08:41→20:06)
[2022-01-07] MEDS: Doxazosin Mesylate 2 MG TABLET 8 MG PO (08:41)
[2022-01-07 11:10] VITALS: BP 118/58; PULSE 68; RESP 16; TEMP 35.7; O2SAT 97
[2022-01-07 15:29] VITALS: BP 131/65; PULSE 88; RESP 18; TEMP 36.7; O2SAT 97
[2022-01-07] MEDS: Enoxaparin Sodium 40 MG/0.4 ML SYRINGE SUBCUT (15:34)
[2022-01-07] MEDS: Omeprazole 40 MG CAPSULE.DR PO (15:34)
[2022-01-07] MEDS: OLANZapine 10 MG TABLET 20 MG PO (19:53)
[2022-01-07 19:54] VITALS: BP 114/59; PULSE 78; RESP 18; TEMP 37; O2SAT 98
[2022-01-08] VITALS (8 sets, daily range): BP systolic 96–137; BP diastolic 54–78; PULSE 59–77; RESP 16–18; TEMP 36–37.1; O2SAT 92–98
[2022-01-08 02:32] LABS: Strep Pneumo Ag urine Not Detected (Not Detected)
[2022-01-08] MEDS: Ampicillin Sodium/Sulbactam Na 3 GM in 0.9 % Sodium Chloride 100 ML IV ×4 (02:55→21:35)
--- NOTE | 2022-01-08 09:36 | P.PNIM_ITS ---
Subjective Subjective Date of Service: 01/08/22 Interval History: cc: cough, fever, tachypnea, concern for aspiration interval history: doing well, no respiraotry issues, Review of Systems no fever no sob Physical Exam Vital Signs: Vital Signs: Last Vital Signs Temp 96.8 F 01/08/22 08:00 Pulse 70 01/08/22 08:00 Resp 16 01/08/22 08:00 BP 137/78 01/08/22 08:00 Pulse Ox 92 01/08/22 08:00 O2 Del Method 01/08/22 08:00 O2 Flow Rate 2 01/04/22 19:42 BMI result Body Mass Index 22.6 Const: Other: General: alert, no distress Resp: CTA bilateral CVS: S1,S2,RRR GI: +BS, NT, no distention Skin: No rash Neuro: motor grossly intact Psych: appropriate affect Objective Data Active Medications Acetaminophen (Acetaminophen 325 Mg Tablet) 650 mg PO Q6H PRN PRN Reason: Pain, Mild (Pain Scale 1-3) Al Hydroxide/Mg Hydroxide (Magnesium Hydrox/Alum Hydrox 30 Ml Oral.Susp) 10 ml PO QIDWMHS [facility] Last Admin: 01/07/22 19:54 Dose: 10 ml Documented By: JASSON Benzonatate (Benzonatate 100 Mg Capsule) 100 mg PO TID PRN PRN Reason: Cough Docusate Sodium (Docusate Sodium 100 Mg Capsule) 200 mg PO BID@0800,1999 [facility] Last Admin: 01/07/22 19:54 Dose: Not Given Documented By: JASSON Non-Admin Reason: needs to be crushed Doxazosin Mesylate (Doxazosin Mesylate 2 Mg Tablet) 8 mg PO DAILY [facility]; Protocol Last Admin: 01/07/22 08:41 Dose: 8 mg Documented By: COTEMA Enoxaparin Sodium (Enoxaparin Sodium 40 Mg/0.4 Ml Syringe) 40 mg SUBCUT Q24H [facility] Last Admin: 01/07/22 15:34 Dose: 40 mg Documented By: IRMA Escitalopram Oxalate (Escitalopram Oxalate 10 Mg Tablet) 30 mg PO DAILY [facility] Last Admin: 01/07/22 08:40 Dose: 30 mg Documented By: COTEMA Finasteride (Finasteride 5 Mg Tablet) 5 mg PO DAILY [facility] Last Admin: 01/07/22 08:40 Dose: 5 mg Documented By: IRMA Guaifenesin/Dextromethorphan (Guaifenesin Dm 200/20/10 Ml 10 Ml Syrup) 10 ml PO Q6H PRN PRN Reason: Cough Ampicillin Sodium/Sulbactam (Sodium 3 gm/ Sodium Chloride) 100 mls @ 200 mls/hr IV Q6H [facility] Last Infusion: 01/08/22 03:27 Dose: 0 mls/hr Documented By: JASSON Loratadine (Loratadine 10 Mg Tablet) 10 mg PO DAILY [facility] Last Admin: 01/07/22 08:41 Dose: 10 mg Documented By: IRMA Magnesium Hydroxide (Milk Of Magnesia 30 Ml Oral.Susp) 30 ml PO DAILY PRN PRN Reason: Constipation Olanzapine (Olanzapine 10 Mg Tablet) 10 mg PO DAILY [facility] Last Admin: 01/06/22 10:18 Dose: 10 mg Documented By: IRMA Olanzapine (Olanzapine 10 Mg Tablet) 20 mg PO BEDTIME [facility] Last Admin: 01/07/22 19:53 Dose: 20 mg Documented By: JASSON Omeprazole (Omeprazole 40 Mg Capsule.Dr) 40 mg PO DAILY@1600 [facility] Last Admin: 01/07/22 15:34 Dose: 40 mg Documented By: IRMA Pharmacy Consult (Consult Rx Perform Med Rec) 1 each MISCELLANE ONCE PRN PRN Reason: Consult order Pharmacy Consult (Consult Rx Perform Med Rec) 1 each MISCELLANE ONCE PRN PRN Reason: Consult order Polyethylene Glycol (Polyethylene Glycol 3350 17 Gm Powd.Pack) 17 gm PO BID [facility] Last Admin: 01/07/22 19:53 Dose: 17 gm Documented By: JASSON Psyllium Hydrophilic Mucilloid (Psyllium Seed 3.4 Gm Powd.Pack) 3.4 gm PO BID [facility] Last Admin: 01/07/22 19:53 Dose: 3.4 gm Documented By: JASSON Simethicone (Simethicone 40 Mg/0.6 Ml 30 Ml Drops.Susp) 40 mg PO TID@0800,1600,2000 [facility] Last Admin: 01/07/22 19:56 Dose: 40 mg Documented By: JASSON Sodium Chloride (0.9 % Sodium Chloride Flush 3 Ml Syringe) 3 ml IVFLUSH QSHIFT [facility] Last Admin: 01/07/22 20:06 Dose: 3 ml Documented By: JASSON Valproic Acid (Valproic Acid (As Sodium Salt) 250 Mg/5 Ml Solution) 1,000 mg PO BID [facility] Last Admin: 01/07/22 19:54 Dose: 1,000 mg Documented By: JASSON Labs CBC & Chem 7: 01/05/22 06:02 01/05/22 06:02 Labs: Laboratory Results - last 24 hr 01/03/22 00:17 Ur Strep pneumoniae Ag Not Detected Microbiology Microbiology Results: Microbiology 01/02/22 11:32 Blood Culture - Final Blood - Venous No growth after 5 days. 01/02/22 10:47 Blood Culture - Final Blood - Venous No growth after 5 days. Assessment and Plan (1) Severe sepsis: Status: Acute (2) Pneumonia: Status: Resolved Plan A 66-year-old nonverbal [facility] a jail with autism, intellectual disability, OCD, bipolar disorder, seizure disorder, dysphagia, hypertension, hep B carrier, chronic constipation, nephrogenic diabetes insipidus, PICA, chronic normocytic anemia, CKD stage III she GERD, and recurrent aspiration pneumonia admitted for aspiration pneumonia with severe sepsis severe sepsis and acute hypoxic respiratory failure secondary to aspiration pneumonia in patients with known dysphagia sepsis resolved. Off O2 continue Unasyn, the jail has historically refused PEG tube despite recurrent admissions for aspiration pneumonia due to quality of life per jail and [employer] RE[employer] eval from 12/28, pureed diet, and regular thin liquids with thin liquids only being given 1/2 tsp at a time. 1:1 feeds aspiration precautions per guardian, plan now to pursue PEG tube, general surgery consult appreciated, plan for PEG by Dr. Palmer tomorrow seizure disorder, unable to determine the type continue valproate mood disorder, continue citalopram, olanzapine GERD continue PPI BPH continue finasteride, doxazosin need for inpatient: dysphagia, leading to aspiration and now needs a PEG Quality Stroke Does the patient have a stroke diagnosis?: No VTE Prior VTE?: No VTE Risk Level:: Medical - moderate - high VTE Device Contraindication: Treatment Not Indicated VTE Drug Contraindication: N/A - Med Ordered
[2022-01-08] MEDS: OLANZapine 10 MG TABLET PO (09:52)
[2022-01-08] MEDS: Doxazosin Mesylate 2 MG TABLET 8 MG PO (09:52)
[2022-01-08] MEDS: Escitalopram Oxalate 10 MG TABLET 30 MG PO (09:52)
[2022-01-08] MEDS: Loratadine 10 MG TABLET PO (09:52)
[2022-01-08] MEDS: polyethylene glycoL 3350 17 GM POWD.PACK PO ×2 (09:52→21:20)
[2022-01-08] MEDS: Finasteride 5 MG TABLET PO (09:52)
[2022-01-08] MEDS: Magnesium Hydrox/Alum Hydrox 30 ML ORAL.SUSP 10 ML PO ×4 (09:53→21:20)
[2022-01-08] MEDS: 0.9 % Sodium Chloride Flush 3 ML SYRINGE IVFLUSH ×3 (09:53→21:25)
--- NOTE | 2022-01-08 11:31 | MHC.CM.PN ---
CM RECEIVED A CALL FROM [facility] THEY ARE AWARE PT WILL HAVE A PEG PLACED TOMORROW THEY WILL FAX THEIR ORDER FORM TO OFFICE THEY WILL NEED PTS FEED ORDERS, A NUTRITION NOTE WITH RECOMMENDED FEEDS, CLARIFICATION ON ANY PO INTAKE, AND A PROGRESS NOTE THAT INCLUDES THE LENGTH OF THERAPY.
--- NOTE | 2022-01-08 13:52 | MHC.SLORD ---
Speech Language Pathology Order Status: Per MD, plan is for PEG placement tomorrow. CHILD CARE TEAM LEAD will continue to follow during hospitalization.
--- NOTE | 2022-01-08 13:54 | PM.PNGS ---
Subjective Subjective Date of Service: 01/09/22 Interval history: no new events mental status has baseline not communicative Physical Exam Vital Signs: Vital Signs: Last Vital Signs Temp 97.3 F 01/08/22 11:32 Pulse 69 01/08/22 11:32 Resp 16 01/08/22 11:32 BP 96/54 L 01/08/22 11:32 Pulse Ox 98 01/08/22 11:32 O2 Del Method 01/08/22 11:32 O2 Flow Rate 2 01/04/22 19:42 BMI result Body Mass Index 22.6 Const: Other: not communicative General: no acute distress Resp: Effort & Inspection: normal respiratory effort Cardio: Rate: regular rate GI: Palpation (GI): Soft to palpation, not firm and nontender Objective Data Active Medications Acetaminophen (Acetaminophen 325 Mg Tablet) 650 mg PO Q6H PRN PRN Reason: Pain, Mild (Pain Scale 1-3) Al Hydroxide/Mg Hydroxide (Magnesium Hydrox/Alum Hydrox 30 Ml Oral.Susp) 10 ml PO QIDWMHS [facility] Last Admin: 01/08/22 11:57 Dose: 10 ml Documented By: GERONIMO Benzonatate (Benzonatate 100 Mg Capsule) 100 mg PO TID PRN PRN Reason: Cough Docusate Sodium (Docusate Sodium 100 Mg Capsule) 200 mg PO BID@0800,2000 [facility] Last Admin: 01/08/22 09:47 Dose: Not Given Documented By: GERONIMO Non-Admin Reason: crushed meds Doxazosin Mesylate (Doxazosin Mesylate 2 Mg Tablet) 8 mg PO DAILY [facility]; Protocol Last Admin: 01/08/22 09:52 Dose: 8 mg Documented By: GERONIMO Enoxaparin Sodium (Enoxaparin Sodium 40 Mg/0.4 Ml Syringe) 40 mg SUBCUT Q24H [facility] Last Admin: 01/07/22 15:34 Dose: 40 mg Documented By: IRMA Escitalopram Oxalate (Escitalopram Oxalate 10 Mg Tablet) 30 mg PO DAILY [facility] Last Admin: 01/08/22 09:52 Dose: 30 mg Documented By: GERONIMO Finasteride (Finasteride 5 Mg Tablet) 5 mg PO DAILY [facility] Last Admin: 01/08/22 09:52 Dose: 5 mg Documented By: GERONIMO Guaifenesin/Dextromethorphan (Guaifenesin Dm 200/20/10 Ml 10 Ml Syrup) 10 ml PO Q6H PRN PRN Reason: Cough Ampicillin Sodium/Sulbactam (Sodium 3 gm/ Sodium Chloride) 100 mls @ 200 mls/hr IV Q6H [facility] Last Infusion: 01/08/22 10:46 Dose: 0 mls/hr Documented By: GERONIMO Loratadine (Loratadine 10 Mg Tablet) 10 mg PO DAILY [facility] Last Admin: 01/08/22 09:52 Dose: 10 mg Documented By: GERONIMO Magnesium Hydroxide (Milk Of Magnesia 30 Ml Oral.Susp) 30 ml PO DAILY PRN PRN Reason: Constipation Olanzapine (Olanzapine 10 Mg Tablet) 10 mg PO DAILY [facility] Last Admin: 01/08/22 09:52 Dose: 10 mg Documented By: GERONIMO Olanzapine (Olanzapine 10 Mg Tablet) 20 mg PO BEDTIME [facility] Last Admin: 01/07/22 19:53 Dose: 20 mg Documented By: JASSON Omeprazole (Omeprazole 40 Mg Capsule.) 40 mg PO DAILY@1600 [facility] Last Admin: 01/07/22 15:34 Dose: 40 mg Documented By: COTEMA Pharmacy Consult (Consult Rx Perform Med Rec) 1 each MISCELLANE ONCE PRN PRN Reason: Consult order Pharmacy Consult (Consult Rx Perform Med Rec) 1 each MISCELLANE ONCE PRN PRN Reason: Consult order Polyethylene Glycol (Polyethylene Glycol 3350 17 Gm Powd.Pack) 17 gm PO BID [facility] Last Admin: 01/08/22 09:52 Dose: 17 gm Documented By: GERONIMO Psyllium Hydrophilic Mucilloid (Psyllium Seed 3.4 Gm Powd.Pack) 3.4 gm PO BID [facility] Last Admin: 01/08/22 09:53 Dose: 3.4 gm Documented By: GERONIMO Simethicone (Simethicone 40 Mg/0.6 Ml 30 Ml Drops.Susp) 40 mg PO TID@0800,1600,2000 [facility] Last Admin: 01/08/22 09:53 Dose: 40 mg Documented By: GERONIMO Sodium Chloride (0.9 % Sodium Chloride Flush 3 Ml Syringe) 3 ml IVFLUSH QSHIFT [facility] Last Admin: 01/08/22 09:53 Dose: 3 ml Documented By: GERONIMO Valproic Acid (Valproic Acid (As Sodium Salt) 250 Mg/5 Ml Solution) 1,000 mg PO BID [facility] Last Admin: 01/08/22 09:53 Dose: 1,000 mg Documented By: GERONIMO Labs CBC & Chem 7: 01/05/22 06:02 01/05/22 06:02 Labs: Laboratory Results - last 24 hr 01/03/22 00:17 Ur Strep pneumoniae Ag Not Detected Microbiology Microbiology Results: Microbiology 01/02/22 11:32 Blood Culture - Final Blood - Venous No growth after 5 days. 01/02/22 10:47 Blood Culture - Final Blood - Venous No growth after 5 days. Procedures Date of Service Date of Service: 01/08/22 Progress Note: A&P Assessment and plan (1) Dysphagia: Status: Acute Assessment and Plan: he is scheduled to undergo peg tube placement tomorrow I have explained this to his Sherry who is his healthcare proxy she understands the technique of this procedure as well as the risks, benefits, and alternatives. Time Spent With Patient Time: Total time spent is greater than 50% in coordination of care (as documented) at patient's floor/unit and/or counseling patient: Quality Stroke Does the patient have a stroke diagnosis?: No VTE Prior VTE?: No VTE Risk Level:: Medical - moderate - high VTE Device Contraindication: Treatment Not Indicated VTE Drug Contraindication: N/A - Med Ordered
[2022-01-08] MEDS: Enoxaparin Sodium 40 MG/0.4 ML SYRINGE SUBCUT (15:04)
[2022-01-08] MEDS: Omeprazole 40 MG CAPSULE.DR PO (15:04)
[2022-01-08 16:47] LABS: Legionella Ag Urine Not Detected (Not Detected)
[2022-01-08] MEDS: OLANZapine 10 MG TABLET 20 MG PO (21:20)
[2022-01-09] VITALS (12 sets, daily range): BP systolic 108–143; BP diastolic 59–81; PULSE 64–86; RESP 16–20; TEMP 36–37.2; O2SAT 92–100
[2022-01-09] MEDS: Ampicillin Sodium/Sulbactam Na 3 GM in 0.9 % Sodium Chloride 100 ML IV ×4 (02:31→20:43)
[2022-01-09] MEDS: 0.9 % Sodium Chloride Flush 3 ML SYRINGE IVFLUSH ×2 (08:11→15:19)
[2022-01-09] MEDS: Doxazosin Mesylate 2 MG TABLET 8 MG PO (08:11)
--- NOTE | 2022-01-09 09:01 | P.PNIM_ITS ---
Subjective Subjective Date of Service: 01/09/22 Interval History: cc: cough, fever, tachypnea, concern for aspiration interval history: doing well, no respiraotry issues, awaiting peg today Review of Systems no fever no sob Physical Exam Vital Signs: Vital Signs: Last Vital Signs Temp 97.0 F 01/09/22 07:39 Pulse 64 01/09/22 07:39 Resp 18 01/09/22 07:39 BP 126/65 01/09/22 07:39 Pulse Ox 94 01/09/22 07:39 O2 Del Method 01/09/22 07:39 O2 Flow Rate 2 01/04/22 19:42 BMI result Body Mass Index 22.6 Const: Other: General: alert, no distress Resp: CTA bilateral CVS: S1,S2,RRR GI: +BS, NT, no distention Skin: No rash Neuro: motor grossly intact Psych: appropriate affect Objective Data Active Medications Acetaminophen (Acetaminophen 325 Mg Tablet) 650 mg PO Q6H PRN PRN Reason: Pain, Mild (Pain Scale 1-3) Al Hydroxide/Mg Hydroxide (Magnesium Hydrox/Alum Hydrox 30 Ml Oral.Susp) 10 ml PO QIDWMHS [facility] Last Admin: 01/09/22 08:12 Dose: Not Given Documented By: GERONIMO Non-Admin Reason: Physician Held Med Benzonatate (Benzonatate 100 Mg Capsule) 100 mg PO TID PRN PRN Reason: Cough Docusate Sodium (Docusate Sodium 100 Mg Capsule) 200 mg PO BID@0800,2000 [facility] Last Admin: 01/09/22 08:12 Dose: Not Given Documented By: GERONIMO Non-Admin Reason: Physician Held Med Doxazosin Mesylate (Doxazosin Mesylate 2 Mg Tablet) 8 mg PO DAILY [facility]; Protocol Last Admin: 01/09/22 08:11 Dose: 8 mg Documented By: GERONIMO Enoxaparin Sodium (Enoxaparin Sodium 40 Mg/0.4 Ml Syringe) 40 mg SUBCUT Q24H [facility] Last Admin: 01/08/22 15:04 Dose: 40 mg Documented By: GERONIMO Escitalopram Oxalate (Escitalopram Oxalate 10 Mg Tablet) 30 mg PO DAILY [facility] Last Admin: 01/09/22 08:12 Dose: Not Given Documented By: GERONIMO Non-Admin Reason: Physician Held Med Finasteride (Finasteride 5 Mg Tablet) 5 mg PO DAILY [facility] Last Admin: 01/09/22 08:12 Dose: Not Given Documented By: GERONIMO Non-Admin Reason: Physician Held Med Guaifenesin/Dextromethorphan (Guaifenesin Dm 200/20/10 Ml 10 Ml Syrup) 10 ml PO Q6H PRN PRN Reason: Cough Ampicillin Sodium/Sulbactam (Sodium 3 gm/ Sodium Chloride) 100 mls @ 200 mls/hr IV Q6H [facility] Last Infusion: 01/09/22 08:52 Dose: 0 mls/hr Documented By: GERONIMO Cefazolin Sodium/Dextrose (Ancef) 2 gm in 50 mls @ 100 mls/hr IV PREOP ONE Stop: 01/09/22 15:07 Loratadine (Loratadine 10 Mg Tablet) 10 mg PO DAILY [facility] Last Admin: 01/09/22 08:12 Dose: Not Given Documented By: GERONIMO Non-Admin Reason: Physician Held Med Magnesium Hydroxide (Milk Of Magnesia 30 Ml Oral.Susp) 30 ml PO DAILY PRN PRN Reason: Constipation Olanzapine (Olanzapine 10 Mg Tablet) 10 mg PO DAILY [facility] Last Admin: 01/09/22 08:12 Dose: Not Given Documented By: GERONIMO Non-Admin Reason: Physician Held Med Olanzapine (Olanzapine 10 Mg Tablet) 20 mg PO BEDTIME [facility] Last Admin: 01/08/22 21:20 Dose: 20 mg Documented By: LUCINA Omeprazole (Omeprazole 40 Mg Capsule.Dr) 40 mg PO DAILY@1600 [facility] Last Admin: 01/08/22 15:04 Dose: 40 mg Documented By: GERONIMO Pharmacy Consult (Consult Rx Perform Med Rec) 1 each MISCELLANE ONCE PRN PRN Reason: Consult order Pharmacy Consult (Consult Rx Perform Med Rec) 1 each MISCELLANE ONCE PRN PRN Reason: Consult order Polyethylene Glycol (Polyethylene Glycol 3350 17 Gm Powd.Pack) 17 gm PO BID [facility] Last Admin: 01/09/22 08:13 Dose: Not Given Documented By: GERONIMO Non-Admin Reason: Physician Held Med Psyllium Hydrophilic Mucilloid (Psyllium Seed 3.4 Gm Powd.Pack) 3.4 gm PO BID [facility] Last Admin: 01/09/22 08:13 Dose: Not Given Documented By: HO.MATTHEP Non-Admin Reason: Physician Held Med Simethicone (Simethicone 40 Mg/0.6 Ml 30 Ml Drops.Susp) 40 mg PO TID@0800,1600,2000 [facility] Last Admin: 01/09/22 08:12 Dose: Not Given Documented By: GERONIMO Non-Admin Reason: Physician Held Med Sodium Chloride (0.9 % Sodium Chloride Flush 3 Ml Syringe) 3 ml IVFLUSH QSHIFT [facility] Last Admin: 01/09/22 08:11 Dose: 3 ml Documented By: GERONIMO Valproic Acid (Valproic Acid (As Sodium Salt) 250 Mg/5 Ml Solution) 1,000 mg PO BID [facility] Last Admin: 01/09/22 08:11 Dose: 1,000 mg Documented By: GERONIMO Labs CBC & Chem 7: 01/05/22 06:02 01/05/22 06:02 Labs: Laboratory Results - last 24 hr 01/03/22 00:17 Ur L.pneumophila Ag Not Detected Assessment and Plan (1) Severe sepsis: Status: Acute (2) Pneumonia: Status: Resolved Plan A 66-year-old nonverbal male resident of a half-way with autism, intellectual disability, OCD, bipolar disorder, seizure disorder, dysphagia, hypertension, hep B carrier, chronic constipation, nephrogenic diabetes insipidus, PICA, chronic normocytic anemia, CKD stage III she GERD, and recurrent aspiration pneumonia admitted for aspiration pneumonia with severe sepsis severe sepsis and acute hypoxic respiratory failure secondary to aspiration pneumonia in patients with known dysphagia sepsis resolved. Off O2 continue Unasyn, the half-way has historically refused PEG tube despite recurrent admissions for aspiration pneumonia due to quality of life per half-way and [employer] eval from 12/28, pureed diet, and regular thin liquids with thin liquids only being given 1/2 tsp at a time. 1:1 feeds aspiration precautions per guardian, plan now to pursue PEG tube, general surgery consult appreciated, plan for PEG by Dr. Palmer today seizure disorder, unable to determine the type continue valproate mood disorder, continue citalopram, olanzapine GERD continue PPI BPH continue finasteride, doxazosin need for inpatient: dysphagia, leading to aspiration and now needs a PEG Quality Stroke Does the patient have a stroke diagnosis?: No VTE Prior VTE?: No VTE Risk Level:: Medical - moderate - high VTE Device Contraindication: Treatment Not Indicated VTE Drug Contraindication: N/A - Med Ordered
--- NOTE | 2022-01-09 10:04 | P.CONAN_ITS ---
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, nephrogenic diabetes insipidus, PICA, chronic anemia, CKD stage III GERD, and recurrent aspiration pneumonia PMF Active Problems Active Problems: All Active Problems (Updated 01/08/22 @ 13:56 by Car Palmer MD) Dysphagia (Acute) Sepsis (Acute) Severe sepsis (Acute) GERD (gastroesophageal reflux disease) (Acute) Seizures (Acute) Hydrocele (Acute) Bladder outlet obstruction (Acute) Dehydration (Acute) Ileus (Acute) Past Medical History Medical History (Updated 01/08/22 @ 13:56 by Car Palmer MD) Anemia Autism Bipolar 1 disorder BPH (benign prostatic hyperplasia) Chronic renal disease Developmental non-verbal disorder Dysphagia Dysphagia GERD (gastroesophageal reflux disease) Hiatal hernia Hydrocele Hyperlipemia Hypertension Mentally challenged OCD (obsessive compulsive disorder) Pica Pneumonia Seizures Family History Family history of problems with anesthesia: No Surgical History Surgical History (Updated 01/05/22 @ 09:48 by Armida Morris PA-C) H/O exploratory laparotomy History of colectomy History of Problems with Anesthesia: No Social History Social History Household Members: Other Household Members Other:: long term Housing: Other Housing Other:: long term Do you presently have visiting nurse or other home services: Yes Unable to assess alcohol history related to: Unable to respond Alcohol intake: never Patient Tobacco Use Status: Never used Tobacco Advance Directives Date on File: 12/24/21 service: No Current occupational status: disabled Meds Allergies Allergy/AdvReac Type Severity Reaction Status Date / Time haloperidol [From HALDOL] AdvReac Unknown UNKNOWN Verified 12/09/19 11:22 metoclopramide [From REGLAN] AdvReac Unknown UNKNOWN Verified 12/09/19 11:22 Active Medications: Current Medications Acetaminophen (Acetaminophen 325 Mg Tablet) 650 mg PO Q6H PRN PRN Reason: Pain, Mild (Pain Scale 1-3) Al Hydroxide/Mg Hydroxide (Magnesium Hydrox/Alum Hydrox 30 Ml Oral.Susp) 10 ml PO QIDWMHS [facility] Last Admin: 01/09/22 08:12 Dose: Not Given Benzonatate (Benzonatate 100 Mg Capsule) 100 mg PO TID PRN PRN Reason: Cough Docusate Sodium (Docusate Sodium 100 Mg Capsule) 200 mg PO BID@0800,2000 [facility] [place] Last Admin: 01/09/22 08:12 Dose: Not Given Doxazosin Mesylate (Doxazosin Mesylate 2 Mg Tablet) 8 mg PO DAILY [facility] [place]; Protocol Last Admin: 01/09/22 08:11 Dose: 8 mg Enoxaparin Sodium (Enoxaparin Sodium 40 Mg/0.4 Ml Syringe) 40 mg SUBCUT Q24H [facility] [place] Last Admin: 01/08/22 15:04 Dose: 40 mg Escitalopram Oxalate (Escitalopram Oxalate 10 Mg Tablet) 30 mg PO DAILY [facility] [place] Last Admin: 01/09/22 08:12 Dose: Not Given Finasteride (Finasteride 5 Mg Tablet) 5 mg PO DAILY [facility] [place] Last Admin: 01/09/22 08:12 Dose: Not Given Guaifenesin/Dextromethorphan (Guaifenesin Dm 200/20/10 Ml 10 Ml Syrup) 10 ml PO Q6H PRN PRN Reason: Cough Ampicillin Sodium/Sulbactam (Sodium 3 gm/ Sodium Chloride) 100 mls @ 200 mls/hr IV Q6H [facility] [place] Last Infusion: 01/09/22 08:52 Dose: Infused Cefazolin Sodium/Dextrose (Ancef) 2 gm in 50 mls @ 100 mls/hr IV PREOP ONE Stop: 01/09/22 15:07 Loratadine (Loratadine 10 Mg Tablet) 10 mg PO DAILY [facility] [place] Last Admin: 01/09/22 08:12 Dose: Not Given Magnesium Hydroxide (Milk Of Magnesia 30 Ml Oral.Susp) 30 ml PO DAILY PRN PRN Reason: Constipation Olanzapine (Olanzapine 10 Mg Tablet) 10 mg PO DAILY [facility] [place] Last Admin: 01/09/22 08:12 Dose: Not Given Olanzapine (Olanzapine 10 Mg Tablet) 20 mg PO BEDTIME [facility] [place] Last Admin: 01/08/22 21:20 Dose: 20 mg Omeprazole (Omeprazole 40 Mg Capsule.Dr) 40 mg PO DAILY@1600 [facility] [place] Last Admin: 01/08/22 15:04 Dose: 40 mg Pharmacy Consult (Consult Rx Perform Med Rec) 1 each MISCELLANE ONCE PRN PRN Reason: Consult order Pharmacy Consult (Consult Rx Perform Med Rec) 1 each MISCELLANE ONCE PRN PRN Reason: Consult order Polyethylene Glycol (Polyethylene Glycol 3350 17 Gm Powd.Pack) 17 gm PO BID [facility] [place] Last Admin: 01/09/22 08:13 Dose: Not Given Psyllium Hydrophilic Mucilloid (Psyllium Seed 3.4 Gm Powd.Pack) 3.4 gm PO BID [facility] [place] Last Admin: 01/09/22 08:13 Dose: Not Given Simethicone (Simethicone 40 Mg/0.6 Ml 30 Ml Drops.Susp) 40 mg PO TID@0800,1599,1999 [facility] [place] Last Admin: 01/09/22 08:12 Dose: Not Given Sodium Chloride (0.9 % Sodium Chloride Flush 3 Ml Syringe) 3 ml IVFLUSH QSHIFT [facility] [place] Last Admin: 01/09/22 08:11 Dose: 3 ml Valproic Acid (Valproic Acid (As Sodium Salt) 250 Mg/5 Ml Solution) 1,000 mg PO BID [facility] [place] Last Admin: 01/09/22 08:11 Dose: 1,000 mg Home Medications Medication Instructions Recorded Confirmed Last Taken Type aluminum hydrox-magnesium carb 95 10 ml PO QIDWMHS 12/09/19 01/02/22 12/23/21 History mg-358 mg/15 mL oral suspension (Acid Gone Antacid) citalopram 20 mg tablet 60 mg PO DAILY 12/09/19 01/02/22 12/23/21 History docusate sodium 100 mg capsule 200 mg PO BID@08,199912/09/19 01/02/22 12/23/21 History loratadine 10 mg tablet 10 mg PO DAILY 12/09/19 01/02/22 12/23/21 History olanzapine 10 mg tablet 10 mg PO DAILY 12/09/19 01/02/22 12/23/21 History olanzapine 20 mg tablet 20 mg PO BEDTIME 12/09/19 01/02/22 12/23/21 History omeprazole 20 mg capsule,delayed 40 mg PO DAILY@1600 12/09/19 01/02/22 12/23/21 History release polyethylene glycol 3350 17 17 g PO BID 12/09/19 01/02/22 12/23/21 History gram/dose oral powder simethicone 40 mg/0.6 mL oral 40 mg PO TID@0800,1599,199912/09/19 01/02/22 12/23/21 History drops,suspension (Gas Relief (simethicone)) valproic acid (as sodium salt) 250 1,000 mg PO BID 12/09/19 01/02/22 12/23/21 History mg/5 mL oral solution acetaminophen 325 mg tablet 650 mg PO Q6H PRN Pain 10/03/20 01/02/22 Unknown History dextromethorphan-guaifenesin 10 10 ml PO Q6H PRN Cough 10/03/20 01/02/22 Unknown History mg-100 mg/5 mL oral liquid bacitracin zinc 500 unit/gram 1 appl topical BID PRN Wound Care 12/24/21 01/02/22 Unknown History topical ointment wheat dextrin 3 gram/3.5 gram oral 1 packet PO BID 12/24/21 01/02/22 12/23/21 History powder (Best Fiber) magnesium hydroxide 400 mg/5 mL 30 ml PO DAILY PRN Constipation 01/02/22 01/02/22 Unknown History oral suspension (Milk of Magnesia) Exam Exam Date and Time: January 09, 2022 1004 Height,Weight and Vital Signs: Height 5 ft 6 in Weight 63.503 kg Last Vital Signs Temp 96.8 F 01/09/22 09:36 Pulse 69 01/09/22 09:36 Resp 18 01/09/22 09:36 BP 130/70 01/09/22 09:36 Pulse Ox 95 01/09/22 09:36 O2 Del Method 01/09/22 09:36 O2 Flow Rate 2 01/04/22 19:42 Pertinent Lab Results Pertinent Lab Results: Laboratory Tests 01/02/22 01/02/22 01/02/22 10:47 10:47 10:48 WBC 13.0 H RBC 3.74 L Hgb 11.5 L Hct 35.1 L MCV 93.9 MCH 30.7 MCHC 32.8 RDW 15.2 Plt Count 291 D MPV 9.0 L Immature Gran % (Auto) Cancelled Neut % (Auto) Cancelled Lymph % (Auto) Cancelled [place] % (Auto) Cancelled Eos % (Auto) Cancelled Baso % (Auto) Cancelled Lymph # (Auto) Cancelled [place] # (Auto) Cancelled Eos # (Auto) Cancelled Baso # (Auto) Cancelled Abs Immat Gran (auto) Cancelled Absolute Neuts (auto) Cancelled Absolute Nucleated RBC 0.000 Nucleated RBC % (auto) 0.0 Neutrophils % (Manual) 79 H Band Neutrophils % 16 H Lymphocytes % (Manual) 2 L Monocytes % (Manual) 3 Abs Neuts (Manual) 12.4 H Lymphocytes # (Manual) 0.3 L Monocytes # (Manual) 0.4 Platelet Estimate NORMAL Plt Morphology Comment NORMAL RBC Morphology NOTED Hypochromasia 1+ (5-14) Sodium 140 Potassium 4.0 Chloride 101 Carbon Dioxide 29 Anion Gap 14 BUN 23 H Creatinine 1.22 Estim Creat Clear Calc 53.4 Estimated GFR 59 Random Glucose 90 Lactic Acid Lactic Acid F/U @ 2Hr Calcium 9.5 Magnesium 2.1 Total Bilirubin < 0.2 AST 20 D ALT 15 Alkaline Phosphatase 97 D Troponin I High Sens B-Natriuretic Peptide Total Protein 9.0 H Albumin 3.8 Procalcitonin 0.26 Urine Color Urine Appearance Urine pH Ur Specific [place] Urine Protein Urine Glucose (UA) Urine Ketones Urine Blood Urine Nitrite Ur Leukocyte Esterase Nasal Screen MRSA (PCR) Nasal S. aureus Screen Nasal MRSA/S.aureus Interp Influenza Type A (PCR) Influenza Type B (PCR) Ur L.pneumophila Ag RSV RNA Qual (PCR) SARS-CoV-2 RNA (RT-PCR) Ur Strep pneumoniae Ag 01/02/22 01/02/22 01/02/22 10:48 10:48 10:48 WBC RBC Hgb Hct MCV MCH MCHC RDW Plt Count MPV Immature Gran % (Auto) Neut % (Auto) Lymph % (Auto) [place] % (Auto) Eos % (Auto) Baso % (Auto) Lymph # (Auto) [place] # (Auto) Eos # (Auto) Baso # (Auto) Abs Immat Gran (auto) Absolute Neuts (auto) Absolute Nucleated RBC Nucleated RBC % (auto) Neutrophils % (Manual) Band Neutrophils % Lymphocytes % (Manual) Monocytes % (Manual) Abs Neuts (Manual) Lymphocytes # (Manual) Monocytes # (Manual) Platelet Estimate Plt Morphology Comment RBC Morphology Hypochromasia Sodium Potassium Chloride Carbon Dioxide Anion Gap BUN Creatinine Estim Creat Clear Calc Estimated GFR Random Glucose Lactic Acid 2.3 H* Lactic Acid F/U @ 2Hr Calcium Magnesium Total Bilirubin AST ALT Alkaline Phosphatase Troponin I High Sens 3.4 B-Natriuretic Peptide 72 Total Protein Albumin Procalcitonin Urine Color Urine Appearance Urine pH Ur Specific [place] Urine Protein Urine Glucose (UA) Urine Ketones Urine Blood Urine Nitrite Ur Leukocyte Esterase Nasal Screen MRSA (PCR) Nasal S. aureus Screen Nasal MRSA/S.aureus Interp Influenza Type A (PCR) Influenza Type B (PCR) Ur L.pneumophila Ag RSV RNA Qual (PCR) SARS-CoV-2 RNA (RT-PCR) Ur Strep pneumoniae Ag 01/02/22 01/02/22 01/03/22 12:41 13:33 00:17 WBC RBC Hgb Hct MCV MCH MCHC RDW Plt Count MPV Immature Gran % (Auto) Neut % (Auto) Lymph % (Auto) [place] % (Auto) Eos % (Auto) Baso % (Auto) Lymph # (Auto) [place] # (Auto) Eos # (Auto) Baso # (Auto) Abs Immat Gran (auto) Absolute Neuts (auto) Absolute Nucleated RBC Nucleated RBC % (auto) Neutrophils % (Manual) Band Neutrophils % Lymphocytes % (Manual) Monocytes % (Manual) Abs Neuts (Manual) Lymphocytes # (Manual) Monocytes # (Manual) Platelet Estimate Plt Morphology Comment RBC Morphology Hypochromasia Sodium Potassium Chloride Carbon Dioxide Anion Gap BUN Creatinine Estim Creat Clear Calc Estimated GFR Random Glucose Lactic Acid Lactic Acid F/U @ 2Hr 1.6 Calcium Magnesium Total Bilirubin AST ALT Alkaline Phosphatase Troponin I High Sens B-Natriuretic Peptide Total Protein Albumin Procalcitonin Urine Color Yellow Urine Appearance Clear Urine pH 7.0 Ur Specific [place] 1.010 Urine Protein Negative Urine Glucose (UA) Negative Urine Ketones Negative Urine Blood Negative Urine Nitrite Negative Ur Leukocyte Esterase Negative Nasal Screen MRSA (PCR) Nasal S. aureus Screen Nasal MRSA/S.aureus Interp Influenza Type A (PCR) NEGATIVE Influenza Type B (PCR) NEGATIVE Ur L.pneumophila Ag RSV RNA Qual (PCR) NEGATIVE SARS-CoV-2 RNA (RT-PCR) NEGATIVE Ur Strep pneumoniae Ag 01/03/22 01/03/22 01/03/22 00:17 00:17 06:09 WBC 12.6 H RBC 2.87 L D Hgb 8.8 L D Hct 27.7 L D MCV 96.5 MCH 30.7 MCHC 31.8 RDW 15.6 Plt Count 230 MPV 9.5 Immature Gran % (Auto) 0.4 Neut % (Auto) 71.9 Lymph % (Auto) 22.9 [place] % (Auto) 4.0 Eos % (Auto) 0.6 Baso % (Auto) 0.2 Lymph # (Auto) 2.9 [place] # (Auto) 0.5 Eos # (Auto) 0.1 Baso # (Auto) 0.0 Abs Immat Gran (auto) 0.05 H Absolute Neuts (auto) 9.0 H Absolute Nucleated RBC 0.000 Nucleated RBC % (auto) 0.0 Neutrophils % (Manual) Band Neutrophils % Lymphocytes % (Manual) Monocytes % (Manual) Abs Neuts (Manual) Lymphocytes # (Manual) Monocytes # (Manual) Platelet Estimate Plt Morphology Comment RBC Morphology Hypochromasia Sodium Potassium Chloride Carbon Dioxide Anion Gap BUN Creatinine Estim Creat Clear Calc Estimated GFR Random Glucose Lactic Acid Lactic Acid F/U @ 2Hr Calcium Magnesium Total Bilirubin AST ALT Alkaline Phosphatase Troponin I High Sens B-Natriuretic Peptide Total Protein Albumin Procalcitonin Urine Color Urine Appearance Urine pH Ur Specific [place] Urine Protein Urine Glucose (UA) Urine Ketones Urine Blood Urine Nitrite Ur Leukocyte Esterase Nasal Screen MRSA (PCR) NEGATIVE Nasal S. aureus Screen NEGATIVE Nasal MRSA/S.aureus Interp SEE NOTE Influenza Type A (PCR) Influenza Type B (PCR) Ur L.pneumophila Ag Not Detected RSV RNA Qual (PCR) SARS-CoV-2 RNA (RT-PCR) Ur Strep pneumoniae Ag Not Detected 01/03/22 01/04/22 01/04/22 06:09 05:33 05:33 WBC 8.4 RBC 3.05 L Hgb 9.4 L Hct 28.7 L MCV 94.1 MCH 30.8 MCHC 32.8 RDW 15.3 Plt Count 247 MPV 9.2 L Immature Gran % (Auto) 0.2 Neut % (Auto) 60.3 Lymph % (Auto) 32.8 [place] % (Auto) 5.1 Eos % (Auto) 1.2 Baso % (Auto) 0.4 Lymph # (Auto) 2.8 [place] # (Auto) 0.4 Eos # (Auto) 0.1 Baso # (Auto) 0.0 Abs Immat Gran (auto) 0.02 Absolute Neuts (auto) 5.1 Absolute Nucleated RBC 0.000 Nucleated RBC % (auto) 0.0 Neutrophils % (Manual) Band Neutrophils % Lymphocytes % (Manual) Monocytes % (Manual) Abs Neuts (Manual) Lymphocytes # (Manual) Monocytes # (Manual) Platelet Estimate Plt Morphology Comment RBC Morphology Hypochromasia Sodium 145 145 Potassium 3.8 3.8 Chloride 112 H 112 H Carbon Dioxide 26 26 Anion Gap 11 L 11 L BUN 14 12 Creatinine 1.06 1.17 Estim Creat Clear Calc 61.5 55.7 Estimated GFR > 60 > 60 Random Glucose 64 77 Lactic Acid Lactic Acid F/U @ 2Hr Calcium 8.3 L D 8.6 Magnesium Total Bilirubin AST ALT Alkaline Phosphatase Troponin I High Sens B-Natriuretic Peptide Total Protein Albumin Procalcitonin Urine Color Urine Appearance Urine pH Ur Specific [place] Urine Protein Urine Glucose (UA) Urine Ketones Urine Blood Urine Nitrite Ur Leukocyte Esterase Nasal Screen MRSA (PCR) Nasal S. aureus Screen Nasal MRSA/S.aureus Interp Influenza Type A (PCR) Influenza Type B (PCR) Ur L.pneumophila Ag RSV RNA Qual (PCR) SARS-CoV-2 RNA (RT-PCR) Ur Strep pneumoniae Ag 01/05/22 01/05/22 06:02 06:02 WBC 7.0 RBC 3.15 L Hgb 9.6 L Hct 29.7 L MCV 94.3 MCH 30.5 MCHC 32.3 RDW 15.6 Plt Count 227 MPV 9.0 L Immature Gran % (Auto) 0.1 Neut % (Auto) 53.6 Lymph % (Auto) 38.5 [place] % (Auto) 5.7 Eos % (Auto) 2.0 Baso % (Auto) 0.1 Lymph # (Auto) 2.7 [place] # (Auto) 0.4 Eos # (Auto) 0.1 Baso # (Auto) 0.0 Abs Immat Gran (auto) 0.01 Absolute Neuts (auto) 3.7 Absolute Nucleated RBC 0.000 Nucleated RBC % (auto) 0.0 Neutrophils % (Manual) Band Neutrophils % Lymphocytes % (Manual) Monocytes % (Manual) Abs Neuts (Manual) Lymphocytes # (Manual) Monocytes # (Manual) Platelet Estimate Plt Morphology Comment RBC Morphology Hypochromasia Sodium 143 Potassium 4.1 Chloride 110 H Carbon Dioxide 25 Anion Gap 12 BUN 17 H Creatinine 1.12 Estim Creat Clear Calc 58.2 Estimated GFR > 60 Random Glucose 78 Lactic Acid Lactic Acid F/U @ 2Hr Calcium 8.6 Magnesium Total Bilirubin AST ALT Alkaline Phosphatase Troponin I High Sens B-Natriuretic Peptide Total Protein Albumin Procalcitonin Urine Color Urine Appearance Urine pH Ur Specific [place] Urine Protein Urine Glucose (UA) Urine Ketones Urine Blood Urine Nitrite Ur Leukocyte Esterase Nasal Screen MRSA (PCR) Nasal S. aureus Screen Nasal MRSA/S.aureus Interp Influenza Type A (PCR) Influenza Type B (PCR) Ur L.pneumophila Ag RSV RNA Qual (PCR) SARS-CoV-2 RNA (RT-PCR) Ur Strep pneumoniae Ag Airway Mallampati Class: IV Neck ROM: Limited Loose/Missing/Broken Teeth: Yes Heart: S1,S2 Lungs: b/l breath sounds Assessment and Plan Assessment Anesthesia Assessment: Anesthesia Plan Discussed and Chart Reviewed Final Anesthetic Review Family History of Problems with Anesthesia: No History of Problems with Anesthesia: No NPO: Yes ASA Class: IV Final Preanesthetic Review: Meds/Allgs Chart Reviewed, Consent Obtained/Reviewed and Anes Risks/Benef Reviewed Patient Risk: High Procedure Risk: Intermediate Anesthetic Plan Anesthetic Plan: GA Disposition: Inp. Admit - Standard Bed
--- NOTE | 2022-01-09 11:14 | P.OP_ITS ---
Operative Note Operative Note Date of Service: 01/09/22 Narrative: Preop diagnosis: Dysphagia with recurrent aspiration pneumonia Postop diagnosis: The same Procedure: Percutaneous endoscopic gastrostomy tube placement Surgeon: Car Palmer MD offset press assistant: OFELIA Morris The patient is a 66-year-old male with autism and bipolar disorder, non communicative, with recurrent aspiration pneumonia. He was referred to me therefore on this admission for PEG tube placement. I had long discussions with his healthcare proxy Sherry the sister about the technique of this procedure as well as the risks, benefits, and alternatives and she had given consent. The patient was brought to the operating room and placed supine under anesthesia via endotracheal tube. A surgical time-out was done. The patient received cefazolin 2 g IV preoperatively. He was then positioned in reversal Trendelenburg to allow the bowel loops to fall down away from the upper abdomen. I inserted The scope through the oral orifice and advanced this into the oropharynx. The vocal cords with the endotracheal tube were seen. The esophageal slit was seen posterior to this and was intubated and the scope was gently advanced through the entire length of the esophagus into the stomach. The stomach was insufflated to distend this. Trans illumination was immediately seen on the left upper quadrant laterally just below the ribcage. Indentation on the anterior stomach wall was easily seen as well when the abdominal wall on this area was pressed with a finger. With excellent transillumination confirming good positioning for placement, I proceeded to prep this area On the left upper quadrant laterally. Lidocaine 1% was used for local anesthesia. A short stab incision was made using blade 11. The needle with the catheter sheath was inserted through this incision and was easily seen within the lumen using the gastroscope. The needle was removed. The plastic cannula sheath was left in place. The guidewire was inserted through this cannula all the way to the stomach lumen. This was caught with the snare. We pulled this guidewire all the way out through the oral cavity. We looped the gastrostomy tube into this wire. The guidewire was pulled out again from the abdominal wall, dragging the G-tube with this. This was pulled until the inner bolster felt snug on the anterior abdominal wall. I reinserted the endoscope into the stomach to directly visualize the inner bolster on the anterior stomach wall which was in good position. There was good note of good hemostasis. There were no other lesions within the stomach mucosa. I therefore pulled out the endoscope completely. The external bolster was positioned to make this snug abdominal wall. Dressings were applied. The procedure was completed. The patient tolerated the procedure well. There were no immediate complications. Blood loss was less than 5 cc. The patient was extubated without difficulty and transferred to the recovery room with stable vital signs.
--- NOTE | 2022-01-09 12:52 | MHC.CLN ---
CONSULT PER CM: PT PENDING PEG PLACEMENT RECOMMEND JEVITY 1.0 AT MAX GOAL RATE 70ML/HR CONTINUOUS WITH 120ML FREE WATER FLUSHES Q 6 HRS TO PROVIDE 1781KCALS (28KCALS/KG), 74G PROTEIN (1.16G/KG), 1883ML TOTAL WATER FROM FORMULA AND FLUSHES START TF AT 20ML/HR AND INCREASE BY 10ML Q 4 HRS UNTIL MAX GOAL IS ACHIEVED DO NOT RECOMMEND BOLUS TF UPON D/C R/T HX ASP PNA CONSULT RD IF NOCTURNAL FEEDS NEEDED FOR D/C DISCUSSED WITH CM
--- NOTE | 2022-01-09 12:57 | PM.EVENT ---
Event Note Date of Service: 01/09/22 Event Note: Seen postop He had undergone PEG tube placement which was uneventful earlier this morning Looks comfortable, seems to have adequate pain control Dressings dry Abdomen soft Pain Management Tube to be covered adequately as the patient has tendency to pull this Okay to start tube feeds after 24 hours His sister Sherry was updated by phone
[2022-01-09] MEDS: Enoxaparin Sodium 40 MG/0.4 ML SYRINGE SUBCUT (15:19)
[2022-01-10 03:39] VITALS: BP 107/77; PULSE 68; RESP 20; TEMP 37.2; O2SAT 93
[2022-01-10] MEDS: Ampicillin Sodium/Sulbactam Na 3 GM in 0.9 % Sodium Chloride 100 ML IV (03:39)
[2022-01-10 07:36] VITALS: BP 135/61; PULSE 67; RESP 17; TEMP 36.4; O2SAT 91
--- NOTE | 2022-01-10 07:51 | P.PNGS_ITS ---
Subjective Subjective Date of Service: 01/10/22 <Armida Morris PA-C - Last Filed: 01/10/22 07:53> 01/10/22 <Car Palmer MD - Last Filed: 01/10/22 08:25> Interval history: Resting in bed comfortably. <Armida Morris PA-C - Last Filed: 01/10/22 07:53> Physical Exam Vital Signs: Vital Signs: Last Vital Signs Temp 97.6 F 01/10/22 07:36 Pulse 67 01/10/22 07:36 Resp 17 01/10/22 07:36 BP 135/61 01/10/22 07:36 Pulse Ox 93 01/10/22 03:39 O2 Del Method 01/10/22 03:39 O2 Flow Rate 4 01/09/22 11:30 BMI result Body Mass Index 22.6 <Armida Morris PA-C - Last Filed: 01/10/22 07:53> Const: General: comfortable, no acute distress and alert <Armida Morris PA-C - Last Filed: 01/10/22 07:53> Resp: Effort & Inspection: normal respiratory effort <Armida Morris PA-C - Last Filed: 01/10/22 07:53> GI: Other: PEG tube in place, mild tenderness surrounding <Armida Morris PA-C - Last Filed: 01/10/22 07:53> Inspection: No distended <Armida Morris PA-C - Last Filed: 01/10/22 07:53> Skin: General skin exam: no rashes or lesions noted <Armida Morris PA-C - Last Filed: 01/10/22 07:53> Objective Data Active Medications Acetaminophen (Acetaminophen 325 Mg Tablet) 650 mg PO Q6H PRN PRN Reason: Pain, Mild (Pain Scale 1-3) Al Hydroxide/Mg Hydroxide (Magnesium Hydrox/Alum Hydrox 30 Ml Oral.Susp) 10 ml PO QIDWMHS [facility] Last Admin: 01/09/22 20:20 Dose: Not Given Documented By: SAMIR Non-Admin Reason: NPO Benzonatate (Benzonatate 100 Mg Capsule) 100 mg PO TID PRN PRN Reason: Cough Docusate Sodium (Docusate Sodium 100 Mg Capsule) 200 mg PO BID@0800,2000 [facility] [place] Last Admin: 01/09/22 20:19 Dose: Not Given Documented By: SAMIR Non-Admin Reason: NPO Doxazosin Mesylate (Doxazosin Mesylate 2 Mg Tablet) 8 mg PO DAILY [facility]; Protocol Last Admin: 01/09/22 08:11 Dose: 8 mg Documented By: GERONIMO Enoxaparin Sodium (Enoxaparin Sodium 40 Mg/0.4 Ml Syringe) 40 mg SUBCUT Q24H [facility] Last Admin: 01/09/22 15:19 Dose: 40 mg Documented By: GERONIMO Escitalopram Oxalate (Escitalopram Oxalate 10 Mg Tablet) 30 mg PO DAILY [facility] Last Admin: 01/09/22 08:12 Dose: Not Given Documented By: GERONIMO Non-Admin Reason: Physician Held Med Finasteride (Finasteride 5 Mg Tablet) 5 mg PO DAILY [facility] Last Admin: 01/09/22 08:12 Dose: Not Given Documented By: GERONIMO Non-Admin Reason: Physician Held Med Guaifenesin/Dextromethorphan (Guaifenesin Dm 200/20/10 Ml 10 Ml Syrup) 10 ml PO Q6H PRN PRN Reason: Cough Ampicillin Sodium/Sulbactam (Sodium 3 gm/ Sodium Chloride) 100 mls @ 200 mls/hr IV Q6H [facility] [place] Last Infusion: 01/10/22 04:30 Dose: 0 mls/hr Documented By: SAMIR Loratadine (Loratadine 10 Mg Tablet) 10 mg PO DAILY [facility] [place] Last Admin: 01/09/22 08:12 Dose: Not Given Documented By: GERONIMO Non-Admin Reason: Physician Held Med Magnesium Hydroxide (Milk Of Magnesia 30 Ml Oral.Susp) 30 ml PO DAILY PRN PRN Reason: Constipation Nystatin (Nystatin Powder 15 Gm Bottle) 1 appl TOPICAL BID [facility] [place]; Protocol Last Admin: 01/09/22 21:50 Dose: Not Given Documented By: SAMIR Non-Admin Reason: Med Not Available Olanzapine (Olanzapine 10 Mg Tablet) 10 mg PO DAILY [facility] [place] Last Admin: 01/09/22 08:12 Dose: Not Given Documented By: GERONIMO Non-Admin Reason: Physician Held Med Olanzapine (Olanzapine 10 Mg Tablet) 20 mg PO BEDTIME [facility] [place] Last Admin: 01/09/22 20:20 Dose: Not Given Documented By: SAMIR Non-Admin Reason: NPO Omeprazole (Omeprazole 40 Mg Capsule.Dr) 40 mg PO DAILY@1600 [facility] Last Admin: 01/09/22 15:19 Dose: Not Given Documented By: GERONIMO Non-Admin Reason: NPO Pharmacy Consult (Consult Rx Perform Med Rec) 1 each MISCELLANE ONCE PRN PRN Reason: Consult order Pharmacy Consult (Consult Rx Perform Med Rec) 1 each MISCELLANE ONCE PRN PRN Reason: Consult order Polyethylene Glycol (Polyethylene Glycol 3350 17 Gm Powd.Pack) 17 gm PO BID [facility] [place] Last Admin: 01/09/22 20:20 Dose: Not Given Documented By: SAMIR Non-Garrick Reason: NPO Psyllium Hydrophilic Mucilloid (Psyllium Seed 3.4 Gm Powd.Pack) 3.4 gm PO BID [facility] [place] Last Admin: 01/09/22 20:20 Dose: Not Given Documented By: SAMIR Non-Admin Reason: NPO Simethicone (Simethicone 40 Mg/0.6 Ml 30 Ml Drops.Susp) 40 mg PO TID @0800,1600,2000 [facility] [place] Last Admin: 01/09/22 20:20 Dose: Not Given Documented By: SAMIR Non-Garrick Reason: NPO Sodium Chloride (0.9 % Sodium Chloride Flush 3 Ml Syringe) 3 ml IVFLUSH QSHIFT [facility] [place] Last Admin: 01/10/22 03:44 Dose: Not Given Documented By: SAMIR Non-Garrick Reason: IV Running Valproic Acid (Valproic Acid (As Sodium Salt) 250 Mg/5 Ml Solution) 1,000 mg PO BID [facility] [place] Last Admin: 01/09/22 21:50 Dose: Not Given Documented By: SAMIR Non-Admin Reason: NPO <Armida Morris PA-C - Last Filed: 01/10/22 07:53> Labs CBC & Chem 7: : 01/05/22 06:02 01/05/22 06:02 <Armida Morris PA-C - Last Filed: 01/10/22 07:53> Procedures Date of Service Date of Service: 01/10/22 <Armida Morris PA-C - Last Filed: 01/10/22 07:53> Progress Note: A&P Assessment and plan (1) Dysphagia: Status: Acute <Armida Morris PA-C - Last Filed: 01/10/22 07:53> (2) S/P percutaneous endoscopic gastrostomy (PEG) tube placement: Status: Acute <Armida Morris PA-C - Last Filed: 01/10/22 07:53> Assessment and Plan: no events overnight peg tube in place abdomen soft and benign okay to start tube feeds today keep external bolster of PEG tubes snug on abdominal wall observed precautions with regards to patient pulling tube out - he has one-to-one sitter 10/09 <Car Palmer MD - Last Filed: 01/10/22 08:25> Assessment and Plan: 66 year old male admitted with recurrent aspiration PNA, sepsis POD #1 s/p PEG tube placement. He is doing well post op. PEG tube remains in place, abd is benign. Can begin to use today. Keep covered with abd and tape to prevent patient from pulling out. <Armida Morris PA-C - Last Filed: 01/10/22 07:53> Time Spent With Patient Time: Total time spent is greater than 50% in coordination of care (as documented) at patient's floor/unit and/or counseling patient: <Armida Morris PA-C - Last Filed: 01/10/22 07:53> Quality Stroke Does the patient have a stroke diagnosis?: No <Armida Morris PA-C - Last Filed: 01/10/22 07:53> VTE Prior VTE?: No <Armida Morris PA-C - Last Filed: 01/10/22 07:53> VTE Risk Level:: Medical - moderate - high <Armida Morris PA-C - Last Filed: 01/10/22 07:53> VTE Device Contraindication: Treatment Not Indicated <Armida Morris PA-C - Last Filed: 01/10/22 07:53> VTE Drug Contraindication: N/A - Med Ordered <Armida Morris PA-C - Last Filed: 01/10/22 07:53>
--- NOTE | 2022-01-10 08:09 | HO.POSTANES ---
Post Anesthesia Evaluation Post Anesthesia Evaluation Vital Signs: Vital Signs Temp Pulse Resp BP Pulse Ox O2 Del Method 01/10/22 07:36 97.6 F 67 17 135/61 01/10/22 03:39 98.9 F 68 20 107/77 93 Room Air 01/09/22 23:33 98.7 F 66 18 110/64 92 Room Air Anesthesia: General Endotracheal-GETA Mental Status: Awake Pain Control: Satisfactory Nausea/Vomiting: None Hydration: Adequate Anesthesia-Related Issues: No Anes. Related Issues
--- NOTE | 2022-01-10 09:01 | P.PNIM_ITS ---
Subjective Subjective Date of Service: 01/10/22 Interval History: cc: cough, fever, tachypnea, concern for aspiration interval history: s/p PEG yesterday, no new issue Review of Systems no fever no sob Physical Exam Vital Signs: Vital Signs: Last Vital Signs Temp 97.6 F 01/10/22 07:36 Pulse 67 01/10/22 07:36 Resp 17 01/10/22 07:36 BP 135/61 01/10/22 07:36 Pulse Ox 91 L 01/10/22 07:36 O2 Del Method 01/10/22 07:36 O2 Flow Rate 4 01/09/22 11:30 BMI result Body Mass Index 22.6 Const: Other: General: alert, no distress Resp: CTA bilateral CVS: S1,S2,RRR GI: +BS, NT, no distention Skin: No rash Neuro: motor grossly intact Psych: appropriate affect Objective Data Active Medications Acetaminophen (Acetaminophen 325 Mg Tablet) 650 mg PO Q6H PRN PRN Reason: Pain, Mild (Pain Scale 1-3) Al Hydroxide/Mg Hydroxide (Magnesium Hydrox/Alum Hydrox 30 Ml Oral.Susp) 10 ml PO QIDWMHS [facility] Last Admin: 01/09/22 20:20 Dose: Not Given Documented By: SAMIR Non-Admin Reason: NPO Benzonatate (Benzonatate 100 Mg Capsule) 100 mg PO TID PRN PRN Reason: Cough Docusate Sodium (Docusate Sodium 100 Mg Capsule) 200 mg PO BID@0800,2000 [facility] Last Admin: 01/09/22 20:19 Dose: Not Given Documented By: SAMIR Non-Admin Reason: NPO Doxazosin Mesylate (Doxazosin Mesylate 2 Mg Tablet) 8 mg PO DAILY [facility]; Protocol Last Admin: 01/09/22 08:11 Dose: 8 mg Documented By: GERONIMO Enoxaparin Sodium (Enoxaparin Sodium 40 Mg/0.4 Ml Syringe) 40 mg SUBCUT Q24H [facility] Last Admin: 01/09/22 15:19 Dose: 40 mg Documented By: GERONIMO Escitalopram Oxalate (Escitalopram Oxalate 10 Mg Tablet) 30 mg PO DAILY [facility] Last Admin: 01/09/22 08:12 Dose: Not Given Documented By: GERONIMO Non-Admin Reason: Physician Held Med Finasteride (Finasteride 5 Mg Tablet) 5 mg PO DAILY [facility] Last Admin: 01/09/22 08:12 Dose: Not Given Documented By: GERONIMO Non-Admin Reason: Physician Held Med Guaifenesin/Dextromethorphan (Guaifenesin Dm 200/20/10 Ml 10 Ml Syrup) 10 ml PO Q6H PRN PRN Reason: Cough Ampicillin Sodium/Sulbactam (Sodium 3 gm/ Sodium Chloride) 100 mls @ 200 mls/hr IV Q6H [facility] Last Infusion: 01/10/22 04:30 Dose: 0 mls/hr Documented By: SAMIR Loratadine (Loratadine 10 Mg Tablet) 10 mg PO DAILY [facility] Last Admin: 01/09/22 08:12 Dose: Not Given Documented By: GERONIMO Non-Admin Reason: Physician Held Med Magnesium Hydroxide (Milk Of Magnesia 30 Ml Oral.Susp) 30 ml PO DAILY PRN PRN Reason: Constipation Morphine Sulfate (Morphine Sulfate 2 Mg/Ml Cartridge) 2 mg IVPUSH Q3H PRN; Protocol PRN Reason: Pain, Severe (Pain Scale 7-10) Nystatin (Nystatin Powder 15 Gm Bottle) 1 appl TOPICAL BID [facility]; Protocol Last Admin: 01/09/22 21:50 Dose: Not Given Documented By: SAMIR Non-Admin Reason: Med Not Available Olanzapine (Olanzapine 10 Mg Tablet) 10 mg PO DAILY [facility] Last Admin: 01/09/22 08:12 Dose: Not Given Documented By: GERONIMO Non-Admin Reason: Physician Held Med Olanzapine (Olanzapine 10 Mg Tablet) 20 mg PO BEDTIME [facility] Last Admin: 01/09/22 20:20 Dose: Not Given Documented By: SAMIR Non-Admin Reason: NPO Omeprazole (Omeprazole 40 Mg Capsule.Dr) 40 mg PO DAILY@1600 [facility] Last Admin: 01/09/22 15:19 Dose: Not Given Documented By: GERONIMO Non-Garrick Reason: NPO Pharmacy Consult (Consult Rx Perform Med Rec) 1 each MISCELLANE ONCE PRN PRN Reason: Consult order Pharmacy Consult (Consult Rx Perform Med Rec) 1 each MISCELLANE ONCE PRN PRN Reason: Consult order Polyethylene Glycol (Polyethylene Glycol 3350 17 Gm Powd.Pack) 17 gm PO BID [facility] Last Admin: 01/09/22 20:20 Dose: Not Given Documented By: SAMIR Non-Admin Reason: NPO Psyllium Hydrophilic Mucilloid (Psyllium Seed 3.4 Gm Powd.Pack) 3.4 gm PO BID [facility] Last Admin: 01/09/22 20:20 Dose: Not Given Documented By: SAMIR Non-Admin Reason: NPO Simethicone (Simethicone 40 Mg/0.6 Ml 30 Ml Drops.Susp) 40 mg PO TID@0800,1600,2000 [facility] Last Admin: 01/09/22 20:20 Dose: Not Given Documented By: SAMIR Non-Admin Reason: NPO Sodium Chloride (0.9 % Sodium Chloride Flush 3 Ml Syringe) 3 ml IVFLUSH QSHIFT [facility] Last Admin: 01/10/22 03:44 Dose: Not Given Documented By: SAMIR Non-Admin Reason: IV Running Valproic Acid (Valproic Acid (As Sodium Salt) 250 Mg/5 Ml Solution) 1,000 mg PO BID [facility] Last Admin: 01/09/22 21:50 Dose: Not Given Documented By: SAMIR Non-Admin Reason: NPO Labs CBC & Chem 7: 01/05/22 06:02 01/05/22 06:02 Assessment and Plan (1) Severe sepsis: Status: Acute (2) Pneumonia: Status: Resolved Plan A 66-year-old nonverbal male resident of a senior living with autism, intellectual disability, OCD, bipolar disorder, seizure disorder, dysphagia, hypertension, hep B carrier, chronic constipation, nephrogenic diabetes insipidus, PICA, chronic normocytic anemia, CKD stage III she GERD, and recurrent aspiration pneumonia admitted for aspiration pneumonia with severe sepsis severe sepsis and acute hypoxic respiratory failure secondary to aspiration pneumonia in patients with known dysphagia sepsis resolved. Off O2 continue Unasyn, the senior living has historically refused PEG tube despite recurrent admissions for aspiration pneumonia due to quality of life per senior living and TELEVISION TECHNICIAN eval from 12/28, pureed diet, and regular thin liquids with thin liquids on ly being given 1/2 tsp at a time. 1:1 feeds aspiration precautions per guardian, plan now to pursue PEG tube, general surgery consult appreciated, PEG inserted 01/09, tube feed starting today. stop antibiotics seizure disorder, unable to determine the type continue valproate mood disorder, continue citalopram, olanzapine GERD continue PPI BPH continue finasteride, doxazosin need for inpatient: dysphagia, leading to aspiration and has PEG and to be discharge once tolarating peg Quality Stroke Does the patient have a stroke diagnosis?: No VTE Prior VTE?: No VTE Risk Level:: Medical - moderate - high VTE Device Contraindication: Treatment Not Indicated VTE Drug Contraindication: N/A - Med Ordered
[2022-01-10 09:19] VITALS: BMI 22.6
--- NOTE | 2022-01-10 09:34 | MHC.CLN ---
F/U PEG PLACED 01/09. TUBE FEEDING TO START TODAY. CONTINUES NPO. PATIENT WITH HX CHRONIC ASPIRATION PNEUMONIA SO CONTINUOUS (NOT BOLUS) TUBE FEEDING RECOMMENDED. RECOMMEND JEVITY 1.0 AT MAX GOAL RATE 70ML/HR CONTINUOUS WITH 120ML FREE WATER FLUSHES Q 6 HRS. PROVIDES 1781KCALS (28KCALS/KG), 74G PROTEIN (1.16G/KG), 1883ML (29.7 ML/KG) TOTAL WATER FROM FORMULA AND FLUSHES. START TF AT 20ML/HR AND INCREASE BY 10ML Q 4 HRS UNTIL MAX GOAL IS ACHIEVED FOLLOW FOR TUBE FEED TOLERANCE, RESIDUALS AND LABS.
[2022-01-10] MEDS: Escitalopram Oxalate 10 MG TABLET 30 MG PO (11:01)
[2022-01-10] MEDS: Doxazosin Mesylate 2 MG TABLET 8 MG PO (11:01)
[2022-01-10] MEDS: OLANZapine 10 MG TABLET PO (11:01)
[2022-01-10] MEDS: Loratadine 10 MG TABLET PO (11:01)
[2022-01-10] MEDS: 0.9 % Sodium Chloride Flush 3 ML SYRINGE IVFLUSH ×2 (11:02→16:04)
[2022-01-10] MEDS: polyethylene glycoL 3350 17 GM POWD.PACK PO ×2 (11:03→19:33)
[2022-01-10] MEDS: Nystatin Powder 15 GM BOTTLE 1 APPL TOPICAL ×2 (11:10→19:34)
[2022-01-10] MEDS: Magnesium Hydrox/Alum Hydrox 30 ML ORAL.SUSP 10 ML PO ×3 (11:10→19:30)
[2022-01-10 11:31] VITALS: BP 96/61; PULSE 76; RESP 17; TEMP 36.5; O2SAT 92
--- NOTE | 2022-01-10 12:23 | MHC.CM.PN ---
PEG placed 01/09/22. Tube feeds started today. [facility] is the supply co. Information has been faxed: MD progress note with length of therapy, Dietitians notes and the Enteral feed script. Ro is the lathe operator contact lens. Her contact info: FAX [phone]. Ro will call main office with any other documentation required. The residential is refusing to accept the patient tomorrow. T/W spoke with Mira from the . She stated that they can not accept the patient until the staff is trained. [facility] was notified of the residential delaying discharge. They will deliver once staff has been trained. Tomorrow 01/11/22 is a holiday. Next business day is Saturday01/12/22. Earliest anticipated discharge if 01/12/22; but unlikely. Per Mira supervisor plastics, [facility] regulations must be met prior to discharge.
[2022-01-10 15:19] VITALS: BP 109/55; PULSE 81; RESP 18; TEMP 36.7; O2SAT 98
[2022-01-10] MEDS: Enoxaparin Sodium 40 MG/0.4 ML SYRINGE SUBCUT (16:05)
--- NOTE | 2022-01-10 19:00 | MHC.SLORD ---
Addendum entered and electronically signed by Luisa Ya MA, CCC-RESEARCH AND DEVELOPMENT MANAGER 01/10/22 19:11: D.S. Original Note: Speech Language Pathology Order Status: Pt had PEG surgery yesterday 01/09, started feeding via PEG this date 01/10. Pt not seen by RESEARCH AND DEVELOPMENT MANAGER today.
[2022-01-10] MEDS: OLANZapine 10 MG TABLET 20 MG PO (19:31)
[2022-01-10 20:00] VITALS: BP 107/61; PULSE 77; RESP 18; TEMP 37.1; O2SAT 97
[2022-01-10 23:33] VITALS: BP 117/62; PULSE 59; RESP 19; TEMP 36.4; O2SAT 90
[2022-01-11] MEDS: 0.9 % Sodium Chloride Flush 3 ML SYRINGE IVFLUSH ×4 (01:21→19:59)
[2022-01-11 03:31] VITALS: BP 135/75; PULSE 74; RESP 18; O2SAT 90
[2022-01-11 07:47] VITALS: BP 141/68; PULSE 79; RESP 18; TEMP 36.6; O2SAT 94
--- NOTE | 2022-01-11 08:33 | HO.PM.IMPN ---
Subjective Subjective Date of Service: 01/11/22 Interval History: cc: cough, fever, tachypnea, concern for aspiration interval history: s/p PEG 01/09, no new issue, and seem to be tolerating feed Review of Systems no fever no sob Physical Exam Vital Signs: Vital Signs: Last Vital Signs Temp 98 F 01/11/22 07:47 Pulse 79 01/11/22 07:47 Resp 18 01/11/22 07:47 BP 141/68 H 01/11/22 07:47 Pulse Ox 94 01/11/22 07:47 O2 Del Method 01/11/22 07:47 O2 Flow Rate 4 01/09/22 11:30 BMI result Body Mass Index 22.6 Const: Other: General: alert, no distress Resp: CTA bilateral CVS: S1,S2,RRR GI: +BS, NT, no distention Skin: No rash Neuro: motor grossly intact Psych: appropriate affect Objective Data Active Medications Acetaminophen (Acetaminophen 325 Mg Tablet) 650 mg PO Q6H PRN PRN Reason: Pain, Mild (Pain Scale 1-3) Al Hydroxide/Mg Hydroxide (Magnesium Hydrox/Alum Hydrox 30 Ml Oral.Susp) 10 ml PO QIDWMHS [facility] Last Admin: 01/10/22 19:30 Dose: 10 ml Documented By: EMMANUEL Benzonatate (Benzonatate 100 Mg Capsule) 100 mg PO TID PRN PRN Reason: Cough Docusate Sodium (Docusate Sodium 100 Mg Capsule) 200 mg PO BID@0800,2000 [facility] Last Admin: 01/10/22 19:31 Dose: Not Given Documented By: EMMANUEL Non-Admin Reason: NPO Doxazosin Mesylate (Doxazosin Mesylate 2 Mg Tablet) 8 mg PO DAILY [facility]; Protocol Last Admin: 01/10/22 11:01 Dose: 8 mg Documented By: JOHANNA Enoxaparin Sodium (Enoxaparin Sodium 40 Mg/0.4 Ml Syringe) 40 mg SUBCUT Q24H [facility] Last Admin: 01/10/22 16:05 Dose: 40 mg Documented By: EMMANUEL Escitalopram Oxalate (Escitalopram Oxalate 10 Mg Tablet) 30 mg PO DAILY [facility] Last Admin: 01/10/22 11:01 Dose: 30 mg Documented By: JOHANNA Finasteride (Finasteride 5 Mg Tablet) 5 mg PO DAILY [facility] Last Admin: 01/10/22 11:02 Dose: Not Given Documented By: JOHANNA Non-Admin Reason: NPO Guaifenesin/Dextromethorphan (Guaifenesin Dm 200/20/10 Ml 10 Ml Syrup) 10 ml PO Q6H PRN PRN Reason: Cough Loratadine (Loratadine 10 Mg Tablet) 10 mg PO DAILY [facility] Last Admin: 01/10/22 11:01 Dose: 10 mg Documented By: JOHANNA Magnesium Hydroxide (Milk Of Magnesia 30 Ml Oral.Susp) 30 ml PO DAILY PRN PRN Reason: Constipation Morphine Sulfate (Morphine Sulfate 2 Mg/Ml Cartridge) 2 mg IVPUSH Q3H PRN; Protocol PRN Reason: Pain, Severe (Pain Scale 7-10) Nystatin (Nystatin Powder 15 Gm Bottle) 1 appl TOPICAL BID [facility]; Protocol Last Admin: 01/10/22 19:34 Dose: 1 appl Documented By: EMMANUEL Olanzapine (Olanzapine 10 Mg Tablet) 10 mg PO DAILY [facility] Last Admin: 01/10/22 11:01 Dose: 10 mg Documented By: JOHANNA Olanzapine (Olanzapine 10 Mg Tablet) 20 mg PO BEDTIME [facility] Last Admin: 01/10/22 19:31 Dose: 20 mg Documented By: EMMANUEL Omeprazole (Omeprazole 40 Mg Capsule.Dr) 40 mg PO DAILY@1600 [facility] Last Admin: 01/10/22 15:56 Dose: Not Given Documented By: EMMANUEL Non-Admin Reason: NPO Pharmacy Consult (Consult Rx Perform Med Rec) 1 each MISCELLANE ONCE PRN PRN Reason: Consult order Pharmacy Consult (Consult Rx Perform Med Rec) 1 each MISCELLANE ONCE PRN PRN Reason: Consult order Polyethylene Glycol (Polyethylene Glycol 3350 17 Gm Powd.Pack) 17 gm PO BID [facility] Last Admin: 01/10/22 19:33 Dose: 17 gm Documented By: EMMANUEL Psyllium Hydrophilic Mucilloid (Psyllium Seed 3.4 Gm Powd.Pack) 3.4 gm PO BID [facility] Last Admin: 01/10/22 19:34 Dose: 3.4 gm Documented By: EMMANUEL Simethicone (Simethicone 40 Mg/0.6 Ml 30 Ml Drops.Susp) 40 mg PO TID@0800,1600,2000 [facility] Last Admin: 01/10/22 19:32 Dose: 40 mg Documented By: EMMANUEL Sodium Chloride (0.9 % Sodium Chloride Flush 3 Ml Syringe) 3 ml IVFLUSH QSHIFT [facility] Last Admin: 01/11/22 01:21 Dose: 3 ml Documented By: SAKINA Valproic Acid (Valproic Acid (As Sodium Salt) 250 Mg/5 Ml Solution) 1,000 mg PO BID [facility] Last Admin: 01/10/22 19:31 Dose: 1,000 mg Documented By: EMMANUEL Labs CBC & Chem 7: 01/05/22 06:02 01/05/22 06:02 Assessment and Plan (1) Severe sepsis: Status: Acute (2) Pneumonia: Status: Resolved Plan A 66-year-old nonverbal male [facility] with autism, intellectual disability, OCD, bipolar disorder, seizure disorder, dysphagia, hypertension, hep B carrier, chronic constipation, nephrogenic diabetes insipidus, PICA, chronic normocytic anemia, CKD stage III she GERD, and recurrent aspiration pneumonia admitted for aspiration pneumonia with severe sepsis severe sepsis and acute hypoxic respiratory failure secondary to aspiration pneumonia--sepsis resolved, Aspiration PNA--has completed course of antibiotics Dysphagia s/p PEG inserted 01/09, tube feed started 01/10 and toleraing mood disorder, continue citalopram, olanzapine GERD continue PPI BPH continue finasteride, doxazosin need for inpatient: awaiting placement with PEG once [facility] Quality Stroke Does the patient have a stroke diagnosis?: No VTE Prior VTE?: No VTE Risk Level:: Medical - moderate - high VTE Device Contraindication: Treatment Not Indicated VTE Drug Contraindication: N/A - Med Ordered
[2022-01-11] MEDS: Magnesium Hydrox/Alum Hydrox 30 ML ORAL.SUSP 10 ML PO ×4 (09:36→19:58)
[2022-01-11] MEDS: Doxazosin Mesylate 2 MG TABLET 8 MG PO (09:37)
[2022-01-11] MEDS: polyethylene glycoL 3350 17 GM POWD.PACK PO ×2 (09:37→19:58)
[2022-01-11] MEDS: OLANZapine 10 MG TABLET PO (09:40)
[2022-01-11] MEDS: Escitalopram Oxalate 10 MG TABLET 30 MG PO (09:40)
[2022-01-11] MEDS: Loratadine 10 MG TABLET PO (09:40)
[2022-01-11] MEDS: Nystatin Powder 15 GM BOTTLE 1 APPL TOPICAL ×2 (09:41→20:15)
[2022-01-11 11:20] VITALS: BP 99/63; PULSE 80; RESP 18; TEMP 36.7; O2SAT 95
[2022-01-11 15:55] VITALS: BP 105/67; PULSE 77; RESP 17; TEMP 36.1; O2SAT 98
[2022-01-11] MEDS: Enoxaparin Sodium 40 MG/0.4 ML SYRINGE SUBCUT (16:47)
[2022-01-11] MEDS: OLANZapine 10 MG TABLET 20 MG PO (19:58)
[2022-01-11] MEDS: Omeprazole 40 MG CAPSULE.DR PO (19:58)
[2022-01-11 20:00] VITALS: BP 110/62; PULSE 75; RESP 17; TEMP 36.1; O2SAT 96
[2022-01-12] VITALS (7 sets, daily range): BP systolic 105–146; BP diastolic 62–99; PULSE 68–92; RESP 16–20; TEMP 35.4–36.5; O2SAT 90–98
[2022-01-12] MEDS: Escitalopram Oxalate 10 MG TABLET 30 MG PO (08:38)
[2022-01-12] MEDS: Loratadine 10 MG TABLET PO (08:38)
[2022-01-12] MEDS: Nystatin Powder 15 GM BOTTLE 1 APPL TOPICAL ×2 (08:38→21:22)
[2022-01-12] MEDS: Doxazosin Mesylate 2 MG TABLET 8 MG PO (08:38)
[2022-01-12] MEDS: polyethylene glycoL 3350 17 GM POWD.PACK PO ×2 (08:38→21:19)
[2022-01-12] MEDS: Magnesium Hydrox/Alum Hydrox 30 ML ORAL.SUSP 10 ML PO ×4 (08:38→21:17)
[2022-01-12] MEDS: OLANZapine 10 MG TABLET PO (08:38)
[2022-01-12] MEDS: 0.9 % Sodium Chloride Flush 3 ML SYRINGE IVFLUSH ×3 (08:39→21:42)
--- NOTE | 2022-01-12 09:44 | P.PNIM_ITS ---
Subjective Subjective Date of Service: 01/12/22 Interval History: cc: cough, fever, tachypnea, concern for aspiration interval history: s/p PEG 01/09, no new issue, and seem to be tolerating feed Review of Systems no fever no sob Physical Exam Vital Signs: Vital Signs: Last Vital Signs Temp 96 F L 01/12/22 07:27 Pulse 68 01/12/22 07:27 Resp 19 01/12/22 07:27 BP 122/64 01/12/22 07:27 Pulse Ox 98 01/12/22 07:27 O2 Del Method 01/12/22 07:27 O2 Flow Rate 4 01/09/22 11:30 BMI result Body Mass Index 22.6 Const: Other: General: alert, no distress Resp: CTA bilateral CVS: S1,S2,RRR GI: +BS, NT, no distention Skin: No rash Neuro: motor grossly intact Psych: appropriate affect Objective Data Active Medications Acetaminophen (Acetaminophen 325 Mg Tablet) 650 mg PO Q6H PRN PRN Reason: Pain, Mild (Pain Scale 1-3) Al Hydroxide/Mg Hydroxide (Magnesium Hydrox/Alum Hydrox 30 Ml Oral.Susp) 10 ml PO QIDWMHS [facility] Last Admin: 01/12/22 08:38 Dose: 10 ml Documented By: JOHANNA Benzonatate (Benzonatate 100 Mg Capsule) 100 mg PO TID PRN PRN Reason: Cough Docusate Sodium (Docusate Sodium 100 Mg Capsule) 200 mg PO BID@0800,2000 [facility] Last Admin: 01/12/22 08:39 Dose: Not Given Documented By: JOHANNA Non-Admin Reason: NPO Doxazosin Mesylate (Doxazosin Mesylate 2 Mg Tablet) 8 mg PO DAILY [facility]; Protocol Last Admin: 01/12/22 08:38 Dose: 8 mg Documented By: JOHANNA Enoxaparin Sodium (Enoxaparin Sodium 40 Mg/0.4 Ml Syringe) 40 mg SUBCUT Q24H [facility] Last Admin: 01/11/22 16:47 Dose: 40 mg Documented By: RAFAT Escitalopram Oxalate (Escitalopram Oxalate 10 Mg Tablet) 30 mg PO DAILY [facility] Last Admin: 01/12/22 08:38 Dose: 30 mg Documented By: JOHANNA Finasteride (Finasteride 5 Mg Tablet) 5 mg PO DAILY [facility] Last Admin: 01/12/22 08:39 Dose: Not Given Documented By: JOHANNA Non-Admin Reason: NPO Guaifenesin/Dextromethorphan (Guaifenesin Dm 200/20/10 Ml 10 Ml Syrup) 10 ml PO Q6H PRN PRN Reason: Cough Loratadine (Loratadine 10 Mg Tablet) 10 mg PO DAILY [facility] Last Admin: 01/12/22 08:38 Dose: 10 mg Documented By: JOHANNA Magnesium Hydroxide (Milk Of Magnesia 30 Ml Oral.Susp) 30 ml PO DAILY PRN PRN Reason: Constipation Morphine Sulfate (Morphine Sulfate 2 Mg/Ml Cartridge) 2 mg IVPUSH Q3H PRN; Protocol PRN Reason: Pain, Severe (Pain Scale 7-10) Nystatin (Nystatin Powder 15 Gm Bottle) 1 appl TOPICAL BID [facility]; Protocol Last Admin: 01/12/22 08:38 Dose: 1 appl Documented By: JOHANNA Olanzapine (Olanzapine 10 Mg Tablet) 10 mg PO DAILY [facility] Last Admin: 01/12/22 08:38 Dose: 10 mg Documented By: JOHANNA Olanzapine (Olanzapine 10 Mg Tablet) 20 mg PO BEDTIME [facility] Last Admin: 01/11/22 19:58 Dose: 20 mg Documented By: SAMIR Omeprazole (Omeprazole 40 Mg Capsule.Dr) 40 mg PO DAILY@1600 [facility] Last Admin: 01/11/22 19:58 Dose: 40 mg Documented By: SAMIR Pharmacy Consult (Consult Rx Perform Med Rec) 1 each MISCELLANE ONCE PRN PRN Reason: Consult order Pharmacy Consult (Consult Rx Perform Med Rec) 1 each MISCELLANE ONCE PRN PRN Reason: Consult order Polyethylene Glycol (Polyethylene Glycol 3350 17 Gm Powd.Pack) 17 gm PO BID [facility] Last Admin: 01/12/22 08:38 Dose: 17 gm Documented By: JOHANNA Psyllium Hydrophilic Mucilloid (Psyllium Seed 3.4 Gm Powd.Pack) 3.4 gm PO BID [facility] Last Admin: 01/12/22 08:39 Dose: Not Given Documented By: JOHANNA Non-Admin Reason: NPO Simethicone (Simethicone 40 Mg/0.6 Ml 30 Ml Drops.Susp) 40 mg PO TID@0800,1600,2000 [facility] Last Admin: 01/12/22 08:38 Dose: 40 mg Documented By: JOHANNA Sodium Chloride (0.9 % Sodium Chloride Flush 3 Ml Syringe) 3 ml IVFLUSH QSHIFT [facility] Last Admin: 01/12/22 08:39 Dose: 3 ml Documented By: JOHANNA Valproic Acid (Valproic Acid (As Sodium Salt) 250 Mg/5 Ml Solution) 1,000 mg PO BID [facility] Last Admin: 01/12/22 08:38 Dose: 1,000 mg Documented By: JOHANNA Labs CBC & Chem 7: 01/05/22 06:02 01/05/22 06:02 Assessment and Plan (1) Severe sepsis: Status: Acute (2) Pneumonia: Status: Resolved Plan A 66-year-old nonverbal male resident of a [facility] with autism, intellectual disability, OCD, bipolar disorder, seizure disorder, dysphagia, hypertension, hep B carrier, chronic constipation, nephrogenic diabetes insipidus, PICA, chronic normocytic anemia, CKD stage III she GERD, and recurrent aspiration pneu monia admitted for aspiration pneumonia with severe sepsis severe sepsis and acute hypoxic respiratory failure secondary to aspiration pneumonia--sepsis resolved, Aspiration PNA--has completed course of antibiotics Dysphagia s/p PEG inserted 01/09, tube feed started 01/10 and toleraing mood disorder, continue citalopram, olanzapine GERD continue PPI BPH continue finasteride, doxazosin need for inpatient: awaiting placement with PEG once [facility] is ready for him Quality Stroke Does the patient have a stroke diagnosis?: No VTE Prior VTE?: No VTE Risk Level:: Medical - moderate - high VTE Device Contraindication: Treatment Not Indicated VTE Drug Contraindication: N/A - Med Ordered
--- NOTE | 2022-01-12 12:47 | MHC.CM.PN ---
UPDATED FEED RX AND OPERATIVE NOTE FAXED TO TOM AT [phone] ([facility]) PLAN IS SATURDAY BACK TO [facility]. T/W EXPECTING FORMS NEEDING SIGNATURE FROM [facility] RNSOHA.
--- NOTE | 2022-01-12 14:56 | MHC.CLN ---
F/U TUBE FEEDING STARTED 01/10. CONTINUES NPO. PATIENT WITH HX CHRONIC ASPIRATION PNEUMONIA SO CONTINUOUS (NOT BOLUS) TUBE FEEDING RECOMMENDED. TOLERATING JEVITY 1.0 AT MAX GOAL RATE 70ML/HR CONTINUOUS WITH 120ML FREE WATER FLUSHES Q 6 HRS. PROVIDES 1781KCALS (28KCALS/KG), 74G PROTEIN (1.16G/KG), 1883ML (29.7 ML/KG) TOTAL WATER FROM FORMULA AND FLUSHES. DUE TO SUPPLY ISSUES WITH JEVITY 1.0, MAY USE COMPARABLE FORMULA, SUCH NUTREN 1.0, IN THE COMMUNITY. NUTREN 1.0 AT 70 ML PER HOUR, FLUSH 120 ML FREE WATER Q 6 HOURS PROVIDES: 1680 KCALS (26.5 KCALS/KG), 67 G PROTEIN (1.1 G/KG), 1878 ML FREE WATER FROM FORMULA AND FLUSH (29.6 ML/KG). FOLLOW FOR TUBE FEED TOLERANCE, RESIDUALS AND LABS.
[2022-01-12] MEDS: Enoxaparin Sodium 40 MG/0.4 ML SYRINGE SUBCUT (16:27)
--- NOTE | 2022-01-12 18:48 | PC.NURSE ---
Low sat 89 on RA ,lungs diminished,patient sounds congested but unable to cough up any sputum,Dr. Iversno notified,
--- NOTE | 2022-01-12 18:55 | PC.NURSE ---
Addendum entered by Cary Espinoza RN 01/12/22 20:43: Dr. Wade notified .CXR ordered,labs ordered,primary RN Ester marte Original Note: Patient placed on 2 L of oxygen ,not in distress,called respiratory therapist in to assess patient
[2022-01-12 20:58] LABS: B Type Natriuretic Peptide < 10 pg/mL (<100)
[2022-01-12] MEDS: OLANZapine 10 MG TABLET 20 MG PO (21:19)
--- NOTE | 2022-01-12 21:50 | PC.NURSE ---
Armida from the [facility], she noticed that pt had bm with watery, so that holding the one of psyllium seed 3.4 gm. and milalax is given.
[2022-01-13] VITALS: BP 111/70; PULSE 74; RESP 20; TEMP 36.6; O2SAT 93
[2022-01-13 04:00] VITALS: BP 141/76; PULSE 56; RESP 18; TEMP 36.3; O2SAT 94
[2022-01-13 06:51] VITALS: BP 117/76; PULSE 70; RESP 18; TEMP 36.1; O2SAT 96
[2022-01-13] MEDS: Magnesium Hydrox/Alum Hydrox 30 ML ORAL.SUSP 10 ML PO ×4 (07:51→20:19)
[2022-01-13] MEDS: polyethylene glycoL 3350 17 GM POWD.PACK PO (07:52)
[2022-01-13] MEDS: Escitalopram Oxalate 10 MG TABLET 30 MG PO (07:52)
[2022-01-13] MEDS: Finasteride 5 MG TABLET PO (07:52)
[2022-01-13] MEDS: Doxazosin Mesylate 2 MG TABLET 8 MG PO (07:53)
[2022-01-13] MEDS: OLANZapine 10 MG TABLET PO (07:53)
[2022-01-13] MEDS: Loratadine 10 MG TABLET PO (07:53)
[2022-01-13] MEDS: 0.9 % Sodium Chloride Flush 3 ML SYRINGE IVFLUSH ×3 (07:54→21:23)
[2022-01-13] MEDS: Nystatin Powder 15 GM BOTTLE 1 APPL TOPICAL ×2 (07:55→20:10)
[2022-01-13 09:51] LABS: Adenovirus PCR Not Detected (Not Detect.); Bordetella parapertussis PCR Not Detected (Not Detect.); Bordetella pertussis PCR Not Detected (Not Detect.); Chlamydia pneumoniae PCR Not Detected (Not Detect.); Coronavirus 229E PCR Not Detected (Not Detect.); Coronavirus HKU1 PCR Not Detected (Not Detect.); Coronavirus NL63 PCR Not Detected (Not Detect.); Coronavirus OC43 PCR Not Detected (Not Detect.); Influenza A PCR Not Detected (Not Detect.); Influenza B PCR Not Detected (Not Detect.); SARS-CoV-2 PCR Not Detected (Not Detect.)
[2022-01-13 09:52] LABS: Human metapneumovirus PCR Not Detected (Not Detect.); Mycoplasma pneumoniae PCR Not Detected (Not Detect.); Parainfluenza 1 PCR Not Detected (Not Detect.); Parainfluenza 2 PCR Not Detected (Not Detect.); Parainfluenza 3 PCR Not Detected (Not Detect.); Parainfluenza 4 PCR Not Detected (Not Detect.); RSV PCR Not Detected (Not Detect.); Rhino/Enterovirus PCR Not Detected (Not Detect.)
--- NOTE | 2022-01-13 10:35 | P.PNIM_ITS ---
Subjective Subjective Date of Service: 01/13/22 Interval History: cc: cough, fever, tachypnea, concern for aspiration interval history: s/p PEG 01/09, no new issue, and seem to be tolerating feed Review of Systems no fever no sob Physical Exam Vital Signs: Vital Signs: Last Vital Signs Temp 97 F 01/13/22 06:51 Pulse 70 01/13/22 06:51 Resp 18 01/13/22 06:51 BP 117/76 01/13/22 06:51 Pulse Ox 96 01/13/22 06:51 O2 Del Method 01/13/22 06:51 O2 Flow Rate 2 01/13/22 04:00 BMI result Body Mass Index 22.6 Const: Other: General: alert, no distress Resp: CTA bilateral CVS: S1,S2,RRR GI: +BS, NT, no distention Skin: No rash Neuro: motor grossly intact Psych: appropriate affect Objective Data Active Medications Acetaminophen (Acetaminophen 325 Mg Tablet) 650 mg PO Q6H PRN PRN Reason: Pain, Mild (Pain Scale 1-3) Al Hydroxide/Mg Hydroxide (Magnesium Hydrox/Alum Hydrox 30 Ml Oral.Susp) 10 ml PO QIDWMHS [facility] Last Admin: 01/13/22 07:51 Dose: 10 ml Documented By: GERONIMO Benzonatate (Benzonatate 100 Mg Capsule) 100 mg PO TID PRN PRN Reason: Cough Docusate Sodium (Docusate Sodium 100 Mg Capsule) 200 mg PO BID@0800,2000 [facility] Last Admin: 01/13/22 07:54 Dose: Not Given Documented By: GERONIMO Non-Admin Reason: unable to crush Doxazosin Mesylate (Doxazosin Mesylate 2 Mg Tablet) 8 mg PO DAILY [facility]; Protocol Last Admin: 01/13/22 07:53 Dose: 8 mg Documented By: GERONIMO Enoxaparin Sodium (Enoxaparin Sodium 40 Mg/0.4 Ml Syringe) 40 mg SUBCUT Q24H [facility] Last Admin: 01/12/22 16:27 Dose: 40 mg Documented By: EMMANUEL Escitalopram Oxalate (Escitalopram Oxalate 10 Mg Tablet) 30 mg PO DAILY [facility] Last Admin: 01/13/22 07:52 Dose: 30 mg Documented By: GERONIMO Finasteride (Finasteride 5 Mg Tablet) 5 mg PO DAILY [facility] Last Admin: 01/13/22 07:52 Dose: 5 mg Documented By: GERONIMO Guaifenesin/Dextromethorphan (Guaifenesin Dm 200/20/10 Ml 10 Ml Syrup) 10 ml PO Q6H PRN PRN Reason: Cough Loratadine (Loratadine 10 Mg Tablet) 10 mg PO DAILY [facility] Last Admin: 01/13/22 07:53 Dose: 10 mg Documented By: GERONIMO Magnesium Hydroxide (Milk Of Magnesia 30 Ml Oral.Susp) 30 ml PO DAILY PRN PRN Reason: Constipation Morphine Sulfate (Morphine Sulfate 2 Mg/Ml Cartridge) 2 mg IVPUSH Q3H PRN; Protocol PRN Reason: Pain, Severe (Pain Scale 7-10) Nystatin (Nystatin Powder 15 Gm Bottle) 1 appl TOPICAL BID [facility]; Protocol Last Admin: 01/13/22 07:55 Dose: 1 appl Documented By: GERONIMO Olanzapine (Olanzapine 10 Mg Tablet) 10 mg PO DAILY [facility] Last Admin: 01/13/22 07:53 Dose: 10 mg Documented By: GERONIMO Olanzapine (Olanzapine 10 Mg Tablet) 20 mg PO BEDTIME [facility] Last Admin: 01/12/22 21:19 Dose: 20 mg Documented By: JUDAH Omeprazole (Omeprazole 40 Mg Capsule.) 40 mg PO DAILY@1600 [facility] Last Admin: 01/11/22 19:58 Dose: 40 mg Documented By: SAMIR Pharmacy Consult (Consult Rx Perform Med Rec) 1 each MISCELLANE ONCE PRN PRN Reason: Consult order Pharmacy Consult (Consult Rx Perform Med Rec) 1 each MISCELLANE ONCE PRN PRN Reason: Consult order Polyethylene Glycol (Polyethylene Glycol 3350 17 Gm Powd.Pack) 17 gm PO BID [facility] Last Admin: 01/13/22 07:52 Dose: 17 gm Documented By: GERONIMO Psyllium Hydrophilic Mucilloid (Psyllium Seed 3.4 Gm Powd.Pack) 3.4 gm PO BID [facility] Last Admin: 01/13/22 07:51 Dose: 3.4 gm Documented By: GERONIMO Simethicone (Simethicone 40 Mg/0.6 Ml 30 Ml Drops.Susp) 40 mg PO TID@0800,1600,2000 [facility] Last Admin: 01/13/22 07:54 Dose: 40 mg Documented By: GERONIMO Sodium Chloride (0.9 % Sodium Chloride Flush 3 Ml Syringe) 3 ml IVFLUSH QSHIFT [facility] Last Admin: 01/13/22 07:54 Dose: 3 ml Documented By: GERONIMO Valproic Acid (Valproic Acid (As Sodium Salt) 250 Mg/5 Ml Solution) 1,000 mg PO BID [facility] Last Admin: 01/13/22 07:52 Dose: 1,000 mg Documented By: GERONIMO Labs CBC & Chem 7: 01/05/22 06:02 01/05/22 06:02 Labs: Laboratory Results - last 24 hr 01/12/22 01/12/22 19:34 20:12 B-Natriuretic Peptide < 10 Respiratory Panel Amaral See Note Adenovirus (Rapid PCR) Not Detected B.pert (TEM-PCR) Not Detected B.parapertussis DNA PCR Not Detected C. pneumoniae DNA (PCR) Not Detected Coronavirus OC43 (PCR) Not Detected Coronavirus HKU1 (PCR) Not Detected Coronavirus 229E (PCR) Not Detected Coronavirus NL63 (PCR) Not Detected Human Metapneumovir PCR Not Detected Influenza A (RT-PCR) Not Detected Influenza B (RT-PCR) Not Detected M. pneumoniae (PCR) Not Detected Parainfluenza 1 (PCR) Not Detected Parainfluenza 2 (PCR) Not Detected Parainfluenza 3 (PCR) Not Detected Parainfluenza 4 (PCR) Not Detected RSV (PCR) Not Detected Entero/Rhino (PCR) Not Detected SARS-CoV-2 RNA (RT-PCR) Not Detected Assessment and Plan (1) Severe sepsis: Status: Acute (2) Pneumonia: Status: Resolved Plan A 66-year-old nonverbal male resident of a [facility] with autism, intellectual disability, OCD, bipolar disorder, seizure disorder, dysphagia, hypertension, hep B carrier, chronic constipation, nephrogenic diabetes insipidus, PICA, chronic normocytic anemia, CKD stage III she GERD, and recurrent aspiration pneumonia admitted for aspiration pneumonia with severe sepsis severe sepsis and acute hypoxic respiratory failure secondary to aspiration pneumonia--sepsis resolved,. CXR 01/12 no pneumonia Aspiration PNA--has completed course of antibiotics Dysphagia s/p PEG inserted 01/09, tube feed started 01/10 and toleraing mood disorder, continue citalopram, olanzapine GERD continue PPI BPH continue finasteride, doxazosin need for inpatient: awaiting placement with PEG once [facility] is ready for him Quality Stroke Does the patient have a stroke diagnosis?: No VTE Prior VTE?: No VTE Risk Level:: Medical - moderate - high VTE Device Contraindication: Treatment Not Indicated VTE Drug Contraindication: N/A - Med Ordered
[2022-01-13 12:00] VITALS: BP 122/75; PULSE 74; RESP 18; TEMP 36.6; O2SAT 92
[2022-01-13 15:59] VITALS: BP 120/64; PULSE 84; RESP 18; TEMP 36.1; O2SAT 91
[2022-01-13] MEDS: Enoxaparin Sodium 40 MG/0.4 ML SYRINGE SUBCUT (16:34)
[2022-01-13] MEDS: Omeprazole 40 MG CAPSULE.DR PO (16:34)
[2022-01-13 20:00] VITALS: BP 98/72; PULSE 83; RESP 20; TEMP 36.4; O2SAT 91
[2022-01-13] MEDS: Docusate Sodium 100 MG/10 ML LIQUID 200 MG PO (20:19)
[2022-01-13] MEDS: OLANZapine 10 MG TABLET 20 MG PO (21:23)
--- NOTE | 2022-01-13 21:27 | PC.NURSE ---
pt had two big loosening stools today. not given miralax.
[2022-01-14] VITALS: BP 98/61; PULSE 100; RESP 20; TEMP 37.3; O2SAT 91
[2022-01-14] MEDS: Acetaminophen 325 MG TABLET 650 MG PO (02:01)
[2022-01-14 03:48] VITALS: BP 101/55; PULSE 95; RESP 20; TEMP 37.4; O2SAT 92
[2022-01-14 08:00] VITALS: BP 116/62; PULSE 84; RESP 16; TEMP 36.6; O2SAT 92
[2022-01-14] MEDS: Finasteride 5 MG TABLET PO (08:32)
[2022-01-14] MEDS: Magnesium Hydrox/Alum Hydrox 30 ML ORAL.SUSP 10 ML PO ×3 (08:32→16:15)
[2022-01-14] MEDS: Nystatin Powder 15 GM BOTTLE 1 APPL TOPICAL ×2 (08:33→19:43)
[2022-01-14] MEDS: OLANZapine 10 MG TABLET PO (08:33)
[2022-01-14] MEDS: Loratadine 10 MG TABLET PO (08:33)
[2022-01-14] MEDS: Escitalopram Oxalate 10 MG TABLET 30 MG PO (08:33)
[2022-01-14] MEDS: Doxazosin Mesylate 2 MG TABLET 8 MG PO (08:34)
[2022-01-14] MEDS: 0.9 % Sodium Chloride Flush 3 ML SYRINGE IVFLUSH ×3 (08:36→19:43)
--- NOTE | 2022-01-14 09:08 | P.PNIM_ITS ---
Subjective Subjective Date of Service: 01/14/22 Interval History: cc: cough, fever, tachypnea, concern for aspiration interval history: s/p PEG 01/09, no new issue, and seem to be tolerating feed Review of Systems no fever no sob Physical Exam Vital Signs: Vital Signs: Last Vital Signs Temp 97.9 F 01/14/22 08:00 Pulse 84 01/14/22 08:00 Resp 16 01/14/22 08:00 BP 116/62 01/14/22 08:00 Pulse Ox 92 01/14/22 08:00 O2 Del Method 01/14/22 08:00 O2 Flow Rate 2 01/14/22 08:00 BMI result Body Mass Index 22.6 Const: Other: General: alert, no distress Resp: CTA bilateral CVS: S1,S2,RRR GI: +BS, NT, no distention Skin: No rash Neuro: motor grossly intact Psych: appropriate affect Objective Data Active Medications Acetaminophen (Acetaminophen 325 Mg Tablet) 650 mg PO Q6H PRN PRN Reason: Pain, Mild (Pain Scale 1-3) Last Admin: 01/14/22 02:01 Dose: 650 mg Documented By: JUDAH Al Hydroxide/Mg Hydroxide (Magnesium Hydrox/Alum Hydrox 30 Ml Oral.Susp) 10 ml PO QIDWMHS [facility] Last Admin: 01/14/22 08:32 Dose: 10 ml Documented By: GERONIMO Benzonatate (Benzonatate 100 Mg Capsule) 100 mg PO TID PRN PRN Reason: Cough Docusate Sodium (Docusate Sodium 100 Mg/10 Ml Liquid) 200 mg PO BID [facility] Last Admin: 01/14/22 08:36 Dose: Not Given Documented By: GERONIMO Non-Admin Reason: multiple loose stool Doxazosin Mesylate (Doxazosin Mesylate 2 Mg Tablet) 8 mg PO DAILY [facility]; Protocol Last Admin: 01/14/22 08:34 Dose: 8 mg Documented By: GERONIMO Enoxaparin Sodium (Enoxaparin Sodium 40 Mg/0.4 Ml Syringe) 40 mg SUBCUT Q24H [facility] Last Admin: 01/13/22 16:34 Dose: 40 mg Documented By: GERONIMO Escitalopram Oxalate (Escitalopram Oxalate 10 Mg Tablet) 30 mg PO DAILY [facility] Last Admin: 01/14/22 08:33 Dose: 30 mg Documented By: GERONIMO Finasteride (Finasteride 5 Mg Tablet) 5 mg PO DAILY [facility] Last Admin: 01/14/22 08:32 Dose: 5 mg Documented By: GERONIMO Guaifenesin/Dextromethorphan (Guaifenesin Dm 200/20/10 Ml 10 Ml Syrup) 10 ml PO Q6H PRN PRN Reason: Cough Loratadine (Loratadine 10 Mg Tablet) 10 mg PO DAILY [facility] Last Admin: 01/14/22 08:33 Dose: 10 mg Documented By: GERONIMO Magnesium Hydroxide (Milk Of Magnesia 30 Ml Oral.Susp) 30 ml PO DAILY PRN PRN Reason: Constipation Morphine Sulfate (Morphine Sulfate 2 Mg/Ml Cartridge) 2 mg IVPUSH Q3H PRN; Protocol PRN Reason: Pain, Severe (Pain Scale 7-10) Nystatin (Nystatin Powder 15 Gm Bottle) 1 appl TOPICAL BID [facility]; Protocol Last Admin: 01/14/22 08:33 Dose: 1 appl Documented By: GERONIMO Olanzapine (Olanzapine 10 Mg Tablet) 10 mg PO DAILY [facility] Last Admin: 01/14/22 08:33 Dose: 10 mg Documented By: GERONIMO Olanzapine (Olanzapine 10 Mg Tablet) 20 mg PO BEDTIME [facility] Last Admin: 01/13/22 21:23 Dose: 20 mg Documented By: JUDAH Omeprazole (Omeprazole 40 Mg Capsule.Dr) 40 mg PO DAILY@1600 [facility] Last Admin: 01/13/22 16:34 Dose: 40 mg Documented By: GERONIMO Pharmacy Consult (Consult Rx Perform Med Rec) 1 each MISCELLANE ONCE PRN PRN Reason: Consult order Pharmacy Consult (Consult Rx Perform Med Rec) 1 each MISCELLANE ONCE PRN PRN Reason: Consult order Polyethylene Glycol (Polyethylene Glycol 3350 17 Gm Powd.Pack) 17 gm PO BID [facility] Last Admin: 01/14/22 08:36 Dose: Not Given Documented By: GERONIMO Non-Admin Reason: multiple loose stools Psyllium Hydrophilic Mucilloid (Psyllium Seed 3.4 Gm Powd.Pack) 3.4 gm PO BID [facility] Last Admin: 01/14/22 08:31 Dose: 3.4 gm Documented By: GERONIMO Simethicone (Simethicone 40 Mg/0.6 Ml 30 Ml Drops.Susp) 40 mg PO TID@0800,1600,2000 [facility] Last Admin: 01/14/22 08:34 Dose: 40 mg Documented By: GERONIMO Sodium Chloride (0.9 % Sodium Chloride Flush 3 Ml Syringe) 3 ml IVFLUSH QSHIFT [facility] Last Admin: 01/14/22 08:36 Dose: 3 ml Documented By: GERONIMO Valproic Acid (Valproic Acid (As Sodium Salt) 250 Mg/5 Ml Solution) 1,000 mg PO BID [facility] Last Admin: 01/14/22 08:31 Dose: 1,000 mg Documented By: GERONIMO Labs CBC & Chem 7: 01/05/22 06:02 01/05/22 06:02 Labs: Laboratory Results - last 24 hr 01/12/22 19:34 Respiratory Panel Amaral See Note Adenovirus (Rapid PCR) Not Detected B.pert (TEM-PCR) Not Detected B.parapertussis DNA PCR Not Detected C. pneumoniae DNA (PCR) Not Detected Coronavirus OC43 (PCR) Not Detected Coronavirus HKU1 (PCR) Not Detected Coronavirus 229E (PCR) Not Detected Coronavirus NL63 (PCR) Not Detected Human Metapneumovir PCR Not Detected Influenza A (RT-PCR) Not Detected Influenza B (RT-PCR) Not Detected M. pneumoniae (PCR) Not Detected Parainfluenza 1 (PCR) Not Detected Parainfluenza 2 (PCR) Not Detected Parainfluenza 3 (PCR) Not Detected Parainfluenza 4 (PCR) Not Detected RSV (PCR) Not Detected Entero/Rhino (PCR) Not Detected SARS-CoV-2 RNA (RT-PCR) Not Detected Assessment and Plan (1) Severe sepsis: Status: Acute (2) Pneumonia: Status: Resolved Plan A 66-year-old nonverbal male resident of a shelter with autism, intellectual disability, OCD, bipolar disorder, seizure disorder, dysphagia, hypertension, hep B carrier, chronic constipation, nephrogenic diabetes insipidus, PICA, chronic normocytic anemia, CKD stage III she GERD, and recurrent aspiration pneumonia admitted for aspiration pneumonia with severe sepsis severe sepsis and acute hypoxic respiratory failure secondary to aspiration pneumonia--sepsis resolved,. CXR 01/12 no pneumonia Aspiration PNA--has completed course of antibiotics Dysphagia s/p PEG inserted 01/09, tube feed started 01/10 and toleraing mood disorder, continue citalopram, olanzapine GERD continue PPI BPH continue finasteride, doxazosin need for inpatient: awaiting placement with PEG once shelter is ready for him Quality Stroke Does the patient have a stroke diagnosis?: No VTE Prior VTE?: No VTE Risk Level:: Medical - moderate - high VTE Device Contraindication: Treatment Not Indicated VTE Drug Contraindication: N/A - Med Ordered
[2022-01-14 11:58] VITALS: BP 112/64; PULSE 92; RESP 18; TEMP 36.6; O2SAT 94
[2022-01-14 15:51] VITALS: BP 105/75; PULSE 91; RESP 20; TEMP 37.1; O2SAT 92
[2022-01-14] MEDS: Enoxaparin Sodium 40 MG/0.4 ML SYRINGE SUBCUT (16:13)
[2022-01-14] MEDS: Omeprazole 40 MG CAPSULE.DR PO (16:13)
[2022-01-14] MEDS: OLANZapine 10 MG TABLET 20 MG PO (19:42)
[2022-01-14] MEDS: Docusate Sodium 100 MG/10 ML LIQUID 200 MG PO (19:42)
[2022-01-14 19:44] VITALS: BP 111/66; PULSE 94; RESP 20; TEMP 36.7; O2SAT 90
--- NOTE | 2022-01-14 22:36 | PC.NURSE ---
at 1999 patient received night time medication. In the middle the patient vomited. The nurse let the peg drain in a container. 300 cc of fluid was release with gas. Patient was repositioned more upright and MD was notified. MD said to give PEG a rest from feeding and medication for the night
[2022-01-15] VITALS (8 sets, daily range): BP systolic 89–120; BP diastolic 53–64; PULSE 75–98; RESP 16–20; TEMP 36.3–37.9; O2SAT 91–96
--- NOTE | 2022-01-15 08:59 | P.PNIM_ITS ---
Subjective Subjective Date of Service: 01/15/22 Interval History: cc: cough, fever, tachypnea, concern for aspiration interval history: s/p PEG 01/09, vomitted overnight and had high residual and feed was on hold and restarting today at lower rate, O2 on lowr side Review of Systems no fever no sob Physical Exam Vital Signs: Vital Signs: Last Vital Signs Temp 100.3 F 01/15/22 08:00 Pulse 98 01/15/22 08:00 Resp 20 01/15/22 08:00 BP 109/62 01/15/22 08:00 Pulse Ox 91 L 01/15/22 08:00 O2 Del Method 01/15/22 08:00 O2 Flow Rate 2 01/15/22 08:00 BMI result Body Mass Index 22.6 Objective Data Active Medications Acetaminophen (Acetaminophen 325 Mg Tablet) 650 mg PO Q6H PRN PRN Reason: Pain, Mild (Pain Scale 1-3) Last Admin: 01/14/22 02:01 Dose: 650 mg Documented By: JUDAH Al Hydroxide/Mg Hydroxide (Magnesium Hydrox/Alum Hydrox 30 Ml Oral.Susp) 10 ml PO QIDWMHS [facility] Last Admin: 01/14/22 20:12 Dose: Not Given Documented By: DELL Non-Admin Reason: Patient Condition Contraindication Benzonatate (Benzonatate 100 Mg Capsule) 100 mg PO TID PRN PRN Reason: Cough Docusate Sodium (Docusate Sodium 100 Mg/10 Ml Liquid) 200 mg PO BID [facility] Last Admin: 01/14/22 19:42 Dose: 200 mg Documented By: DELL Doxazosin Mesylate (Doxazosin Mesylate 2 Mg Tablet) 8 mg PO DAILY [facility]; Protocol Last Admin: 01/14/22 08:34 Dose: 8 mg Documented By: GERONIMO Enoxaparin Sodium (Enoxaparin Sodium 40 Mg/0.4 Ml Syringe) 40 mg SUBCUT Q24H [facility] Last Admin: 01/14/22 16:13 Dose: 40 mg Documented By: GERONIMO Escitalopram Oxalate (Escitalopram Oxalate 10 Mg Tablet) 30 mg PO DAILY [facility] Last Admin: 01/14/22 08:33 Dose: 30 mg Documented By: GERONIMO Finasteride (Finasteride 5 Mg Tablet) 5 mg PO DAILY [facility] Last Admin: 01/14/22 08:32 Dose: 5 mg Documented By: GERONIMO Guaifenesin/Dextromethorphan (Guaifenesin Dm 200/20/10 Ml 10 Ml Syrup) 10 ml PO Q6H PRN PRN Reason: Cough Loratadine (Loratadine 10 Mg Tablet) 10 mg PO DAILY [facility] Last Admin: 01/14/22 08:33 Dose: 10 mg Documented By: GERONIMO Magnesium Hydroxide (Milk Of Magnesia 30 Ml Oral.Susp) 30 ml PO DAILY PRN PRN Reason: Constipation Nystatin (Nystatin Powder 15 Gm Bottle) 1 appl TOPICAL BID [facility]; Protocol Last Admin: 01/14/22 19:43 Dose: 1 appl Documented By: DELL Olanzapine (Olanzapine 10 Mg Tablet) 10 mg PO DAILY [facility] Last Admin: 01/14/22 08:33 Dose: 10 mg Documented By: GERONIMO Olanzapine (Olanzapine 10 Mg Tablet) 20 mg PO BEDTIME [facility] Last Admin: 01/14/22 19:42 Dose: 20 mg Documented By: DELL Omeprazole (Omeprazole 40 Mg Capsule.Dr) 40 mg PO DAILY@1600 [facility] Last Admin: 01/14/22 16:13 Dose: 40 mg Documented By: GERONIMO Pharmacy Consult (Consult Rx Perform Med Rec) 1 each MISCELLANE ONCE PRN PRN Reason: Consult order Pharmacy Consult (Consult Rx Perform Med Rec) 1 each MISCELLANE ONCE PRN PRN Reason: Consult order Polyethylene Glycol (Polyethylene Glycol 3350 17 Gm Powd.Pack) 17 gm PO BID [facility] Last Admin: 01/14/22 20:13 Dose: Not Given Documented By: DELL Non-Admin Reason: Patient Condition Contraindication Psyllium Hydrophilic Mucilloid (Psyllium Seed 3.4 Gm Powd.Pack) 3.4 gm PO BID [facility] Last Admin: 01/14/22 19:42 Dose: 3.4 gm Documented By: DELL Simethicone (Simethicone 40 Mg/0.6 Ml 30 Ml Drops.Susp) 40 mg PO TID@0800,1600,2000 [facility] Last Admin: 01/14/22 19:41 Dose: 40 mg Documented By: DELL Sodium Chloride (0.9 % Sodium Chloride Flush 3 Ml Syringe) 3 ml IVFLUSH QSHIFT [facility] Last Admin: 01/14/22 19:43 Dose: 3 ml Documented By: DELL Valproic Acid (Valproic Acid (As Sodium Salt) 250 Mg/5 Ml Solution) 1,000 mg PO BID [facility] Last Admin: 01/14/22 19:42 Dose: 1,000 mg Documented By: DELL Labs CBC & Chem 7: 01/05/22 06:02 01/05/22 06:02 Assessment and Plan (1) Severe sepsis: Status: Acute (2) Pneumonia: Status: Resolved Plan A 66-year-old nonverbal male resident of a residential with autism, intellectual disability, OCD, bipolar disorder, seizure disorder, dysphagia, hypertension, hep B carrier, chronic constipation, nephrogenic diabetes insipidus, PICA, chronic normocytic anemia, CKD stage III she GERD, and recurrent aspiration pne umonia admitted for aspiration pneumonia with severe sepsis severe sepsis and acute hypoxic respiratory failure secondary to aspiration pneumonia--sepsis resolved,. CXR 01/12 ,no pneumonia, repeat xray in light of vomitting and lower O2 sat Aspiration PNA--has completed course of antibiotics Dysphagia s/p PEG inserted 01/09, tube feed started 01/10 and toleraing mood disorder, continue citalopram, olanzapine GERD continue PPI BPH continue finasteride, doxazosin need for inpatient: awaiting placement with PEG once residential is ready for him Quality Stroke Does the patient have a stroke diagnosis?: No VTE Prior VTE?: No VTE Risk Level:: Medical - moderate - high VTE Device Contraindication: Treatment Not Indicated VTE Drug Contraindication: N/A - Med Ordered
[2022-01-15] MEDS: Loratadine 10 MG TABLET PO (09:02)
[2022-01-15] MEDS: Doxazosin Mesylate 2 MG TABLET 8 MG PO (09:02)
[2022-01-15] MEDS: OLANZapine 10 MG TABLET PO (09:02)
[2022-01-15] MEDS: Escitalopram Oxalate 10 MG TABLET 30 MG PO (09:03)
[2022-01-15] MEDS: Finasteride 5 MG TABLET PO (09:03)
[2022-01-15] MEDS: Magnesium Hydrox/Alum Hydrox 30 ML ORAL.SUSP 10 ML PO ×4 (09:03→19:38)
[2022-01-15] MEDS: polyethylene glycoL 3350 17 GM POWD.PACK PO ×2 (09:03→19:38)
[2022-01-15] MEDS: Docusate Sodium 100 MG/10 ML LIQUID 200 MG PO ×2 (09:04→19:38)
[2022-01-15] MEDS: Acetaminophen 325 MG TABLET 650 MG PO ×2 (09:04→16:35)
[2022-01-15] MEDS: 0.9 % Sodium Chloride Flush 3 ML SYRINGE IVFLUSH ×3 (09:32→19:39)
--- NOTE | 2022-01-15 11:28 | MHC.CLN ---
F/U NPO ON TUBE FEEDING. EPISODE OF VOMITING OVERNIGHT 01/14 WITH HIGH RESIDUALS. TF ON HOLD AND TO RESTART TODAY. PATIENT WITH HX CHRONIC ASPIRATION PNEUMONIA SO CONTINUOUS (NOT BOLUS) TUBE FEEDING RECOMMENDED. ADVANCE TO JEVITY 1.0 AT MAX GOAL RATE 70ML/HR CONTINUOUS WITH 120ML FREE WATER FLUSHES Q 6 HRS. PROVIDES 1781KCALS (28KCALS/KG), 74G PROTEIN (1.16G/KG), 1883ML (29.7 ML/KG) TOTAL WATER FROM FORMULA AND FLUSHES. MAY USE ALTERNATE FORMULA IN THE COMMUNITY IF JEVITY 1.0 NOT AVAILABLE. FOLLOW FOR RESIDUALS, LABS, AND TUBE FEED TOLERANCE.
[2022-01-15] MEDS: Nystatin Powder 15 GM BOTTLE 1 APPL TOPICAL ×2 (12:05→19:51)
--- NOTE | 2022-01-15 13:30 | MHC.SLORD ---
Speech Language Pathology Order Status: Chart reviewed and patient visited, spoke with caregiver in room. Pt now on re-start of tube feeding w/continuous feed after episode of vomiting 01/14. Not appropriate to trial PO at this time. LIE DETECTOR OPERATOR plan to provide guidance for supplemental PO for comfort/pleasure, will continue to follow for readiness.
[2022-01-15] MEDS: Enoxaparin Sodium 40 MG/0.4 ML SYRINGE SUBCUT (15:04)
[2022-01-15] MEDS: OLANZapine 10 MG TABLET 20 MG PO (19:38)
[2022-01-15] MEDS: Amoxicillin/Potassium Clav 875 MG TABLET PO (23:49)
[2022-01-16] VITALS (7 sets, daily range): BP systolic 107–154; BP diastolic 60–84; PULSE 77–98; RESP 14–19; TEMP 36.1–38; O2SAT 93–98
--- NOTE | 2022-01-16 08:08 | P.PNIM_ITS ---
Subjective Subjective Date of Service: 01/16/22 Interval History: cc: cough, fever, tachypnea, concern for aspiration interval history: s/p PEG 01/09, vomitted overnight and xray showed no infiltrate and started on Augmentin, no fever or chills, no hypxoa Review of Systems no fever no sob Physical Exam Vital Signs: Vital Signs: Last Vital Signs Temp 97 F 01/16/22 07:03 Pulse 85 01/16/22 07:03 Resp 18 01/16/22 07:03 BP 113/62 01/16/22 07:03 Pulse Ox 95 01/16/22 07:03 O2 Del Method 01/16/22 07:03 O2 Flow Rate 2 01/15/22 23:30 BMI result Body Mass Index 22.6 Const: Other: General: no distress, non communicative Resp: clear CVS: S1,S2,RRR GI: +BS, NT, no distention Skin: No rash Neuro: motor grossly intact Psych: flat Objective Data Active Medications Acetaminophen (Acetaminophen 325 Mg Tablet) 650 mg PO Q6H PRN PRN Reason: Pain, Mild (Pain Scale 1-3) Last Admin: 01/15/22 16:35 Dose: 650 mg Documented By: ISAAC Al Hydroxide/Mg Hydroxide (Magnesium Hydrox/Alum Hydrox 30 Ml Oral.Susp) 10 ml PO QIDWMHS [facility] Last Admin: 01/15/22 19:38 Dose: 10 ml Documented By: DELL Amoxicillin/Clavulanate Potassium (Amoxicillin/Potassium Clav 875 Mg Tablet) 875 mg PO Q12H [facility] Last Admin: 01/15/22 23:49 Dose: 875 mg Documented By: DELL Benzonatate (Benzonatate 100 Mg Capsule) 100 mg PO TID PRN PRN Reason: Cough Docusate Sodium (Docusate Sodium 100 Mg/10 Ml Liquid) 200 mg PO BID [facility] Last Admin: 01/15/22 19:38 Dose: 200 mg Documented By: DELL Doxazosin Mesylate (Doxazosin Mesylate 2 Mg Tablet) 8 mg PO DAILY [facility]; Protocol Last Admin: 01/15/22 09:02 Dose: 8 mg Documented By: ISAAC Enoxaparin Sodium (Enoxaparin Sodium 40 Mg/0.4 Ml Syringe) 40 mg SUBCUT Q24H [facility] Last Admin: 01/15/22 15:04 Dose: 40 mg Documented By: ISAAC Escitalopram Oxalate (Escitalopram Oxalate 10 Mg Tablet) 30 mg PO DAILY [facility] Last Admin: 01/15/22 09:03 Dose: 30 mg Documented By: ISAAC Finasteride (Finasteride 5 Mg Tablet) 5 mg PO DAILY [facility] Last Admin: 01/15/22 09:03 Dose: 5 mg Documented By: ISAAC Guaifenesin/Dextromethorphan (Guaifenesin Dm 200/20/10 Ml 10 Ml Syrup) 10 ml PO Q6H PRN PRN Reason: Cough Loratadine (Loratadine 10 Mg Tablet) 10 mg PO DAILY [facility] Last Admin: 01/15/22 09:02 Dose: 10 mg Documented By: ISAAC Magnesium Hydroxide (Milk Of Magnesia 30 Ml Oral.Susp) 30 ml PO DAILY PRN PRN Reason: Constipation Nystatin (Nystatin Powder 15 Gm Bottle) 1 appl TOPICAL BID [facility]; Protocol Last Admin: 01/15/22 19:51 Dose: 1 appl Documented By: DELL Olanzapine (Olanzapine 10 Mg Tablet) 10 mg PO DAILY [facility] Last Admin: 01/15/22 09:02 Dose: 10 mg Documented By: ISAAC Olanzapine (Olanzapine 10 Mg Tablet) 20 mg PO BEDTIME [facility] Last Admin: 01/15/22 19:38 Dose: 20 mg Documented By: DELL Omeprazole (Omeprazole 20 Mg/10 Ml Susp.Recon) 40 mg G-TUBE DAILY@1600 [facility] Last Admin: 01/15/22 15:08 Dose: 40 mg Documented By: ISAAC Pharmacy Consult (Consult Rx Perform Med Rec) 1 each MISCELLANE ONCE PRN PRN Reason: Consult order Pharmacy Consult (Consult Rx Perform Med Rec) 1 each MISCELLANE ONCE PRN PRN Reason: Consult order Polyethylene Glycol (Polyethylene Glycol 3350 17 Gm Powd.Pack) 17 gm PO BID [facility] Last Admin: 01/15/22 19:38 Dose: 17 gm Documented By: DELL Psyllium Hydrophilic Mucilloid (Psyllium Seed 3.4 Gm Powd.Pack) 3.4 gm PO BID [facility] Last Admin: 01/15/22 19:38 Dose: 3.4 gm Documented By: DELL Simethicone (Simethicone 40 Mg/0.6 Ml 30 Ml Drops.Susp) 40 mg PO TID@0800,1600,2000 [facility] Last Admin: 01/15/22 19:38 Dose: 40 mg Documented By: DELL Sodium Chloride (0.9 % Sodium Chloride Flush 3 Ml Syringe) 3 ml IVFLUSH QSHIFT [facility] Last Admin: 01/15/22 19:39 Dose: 3 ml Documented By: DELL Valproic Acid (Valproic Acid (As Sodium Salt) 250 Mg/5 Ml Solution) 1,000 mg PO BID [facility] Last Admin: 01/15/22 19:38 Dose: 1,000 mg Documented By: EDLL Labs CBC & Chem 7: 01/05/22 06:02 01/05/22 06:02 Assessment and Plan (1) Severe sepsis: Status: Acute (2) Pneumonia: Status: Resolved Plan A 66-year-old nonverbal male resident of a shelter with autism, intellectual disability, OCD, bipolar disorder, seizure disorder, dysphagia, hypertension, hep B carrier, chronic constipation, nephrogenic diabetes insipidus, PICA, chronic normocytic anemia, CKD stage III she GERD, and recurrent aspiration p neumonia admitted for aspiration pneumonia with severe sepsis severe sepsis and acute hypoxic respiratory failure secondary to aspiration pneumonia--sepsis resolved,. CXR 01/12 ,no pneumonia, repeat xray 01/15 showed new inflitrate following an aspiration event, started on Augmentin, O2 sat is normal now Aspiration PNA--has completed course of antibiotics but seem to have had another episode and will add Augmentin again for 7 days, he is afebril, normal O2 no need of oxygen Dysphagia s/p PEG inserted 01/09, tolerating feed, changes per nutrition mood disorder, continue citalopram, olanzapine GERD continue PPI BPH continue finasteride, doxazosin need for inpatient: awaiting placement with PEG once shelter is ready for him Quality Stroke Does the patient have a stroke diagnosis?: No VTE Prior VTE?: No VTE Risk Level:: Medical - moderate - high VTE Device Contraindication: Treatment Not Indicated VTE Drug Contraindication: N/A - Med Ordered
[2022-01-16] MEDS: Amoxicillin/Potassium Clav 875 MG TABLET PO (10:05)
[2022-01-16] MEDS: Escitalopram Oxalate 10 MG TABLET 30 MG PO (10:05)
[2022-01-16] MEDS: Doxazosin Mesylate 2 MG TABLET 8 MG PO (10:05)
[2022-01-16] MEDS: OLANZapine 10 MG TABLET PO (10:06)
[2022-01-16] MEDS: Loratadine 10 MG TABLET PO (10:06)
[2022-01-16] MEDS: Finasteride 5 MG TABLET PO (10:06)
[2022-01-16] MEDS: Docusate Sodium 100 MG/10 ML LIQUID 200 MG PO ×2 (10:07→22:26)
[2022-01-16] MEDS: Magnesium Hydrox/Alum Hydrox 30 ML ORAL.SUSP 10 ML PO ×4 (10:07→22:26)
[2022-01-16] MEDS: polyethylene glycoL 3350 17 GM POWD.PACK PO ×2 (10:08→22:25)
[2022-01-16] MEDS: Nystatin Powder 15 GM BOTTLE 1 APPL TOPICAL ×2 (10:12→22:31)
[2022-01-16] MEDS: 0.9 % Sodium Chloride Flush 3 ML SYRINGE IVFLUSH ×3 (10:12→23:18)
[2022-01-16 10:27] LABS: Hematocrit 32.7 % (42.0-52.0); Hemoglobin 10.8 g/dl (14.0-18.0); Mean Corpuscular Hemoglobin 30.3 pg (27.0-33.0); Mean Corpuscular Volume 91.6 fL (80.0-98.0); Mean Platelet Volume 10.2 fL (9.4-12.4); Platelet Count 257 X10*3/uL (160-400); Red Blood Count 3.57 X10*6/uL (4.60-5.80); Red Cell Distribution Width 14.9 % (11.0-16.0); White Blood Count 19.9 X10*3/uL (4.8-10.8)
[2022-01-16 10:47] LABS: Anion Gap 14 (12-20); Blood Urea Nitrogen 30 mg/dL (9-16); Calcium 9.3 mg/dL (8.4-10.2); Carbon Dioxide 29 mmol/L (22-29); Chloride 99 mmol/L (96-108); Creatinine Clr Calc Pharmacy 58.2; Estimated Glomerular Filt Rate > 60; Glucose Random 84 mg/dL (60-115); Potassium 3.9 mmol/L (3.3-5.1); Sodium 138 mmol/L (135-145)
--- NOTE | 2022-01-16 11:39 | MHC.CM.PN ---
[facility] RN, SOHA [phone] AWARE THAT PATIENT MAY NEED TO BE HERE FOR 1-2 MORE DAYS W/ POSSIBLE IV ABX.
[2022-01-16] MEDS: Ampicillin Sodium/Sulbactam Na 3 GM in 0.9 % Sodium Chloride 100 ML IV ×3 (12:02→23:29)
--- NOTE | 2022-01-16 13:40 | MHC.SLORD ---
Speech Language Pathology Order Status: Patient noted to have new onset aspiration pna from emesis event. Not appropriate at this time for assessment of PO/supplemental. Recommend continue NPO/enteric feeding only.
--- NOTE | 2022-01-16 15:46 | PC.NURSE ---
Alert and awake. VSS, afebrile, no acute resp. distress. tolerating tube feeding well, no residual noted. IV ampicillin given no adverse reactions noted. repositioned as needed. [facility] from [facility] visited. Will continue to monitor and treat per plan of care.
[2022-01-16] MEDS: Enoxaparin Sodium 40 MG/0.4 ML SYRINGE SUBCUT (16:22)
[2022-01-16] MEDS: OLANZapine 10 MG TABLET 20 MG PO (22:27)
[2022-01-16] MEDS: Acetaminophen 325 MG TABLET 650 MG PO (23:38)
[2022-01-17] MEDS: Ampicillin Sodium/Sulbactam Na 3 GM in 0.9 % Sodium Chloride 100 ML IV ×4 (04:55→23:15)
[2022-01-17 06:07] VITALS: BP 105/62; PULSE 91; RESP 14; TEMP 36.8; O2SAT 94
[2022-01-17 07:45] VITALS: BP 121/63; PULSE 68; RESP 18; TEMP 35.8; O2SAT 98
--- NOTE | 2022-01-17 10:00 | MHC.CLN ---
F/U NPO ON TUBE FEEDING. NO FURTHER EPISODES OF VOMITING NOTED SINCE 01/14. TOLERATING TF AT MAX GOAL RATE. JEVITY 1.0 AT MAX GOAL RATE 70ML/HR CONTINUOUS WITH 120ML FREE WATER FLUSHES Q 6 HRS. PROVIDES 1781KCALS (28KCALS/KG), 74G PROTEIN (1.16G/KG), 1883ML (29.7 ML/KG) TOTAL WATER FROM FORMULA AND FLUSHES. MAY USE ALTERNATE FORMULA IN THE COMMUNITY IF JEVITY 1.0 NOT AVAILABLE. PATIENT WITH HX CHRONIC ASPIRATION PNEUMONIA SO CONTINUOUS (NOT BOLUS) TUBE FEEDING RECOMMENDED. FOLLOW FOR RESIDUALS, LABS, AND TUBE FEED TOLERANCE.
[2022-01-17 10:13] LABS: Hematocrit 32.2 % (42.0-52.0); Hemoglobin 10.4 g/dl (14.0-18.0); Mean Corpuscular HGB Conc 32.3 g/dl (31.0-36.0); Mean Corpuscular Hemoglobin 30.6 pg (27.0-33.0); Mean Corpuscular Volume 94.7 fL (80.0-98.0); Mean Platelet Volume 10.3 fL (9.4-12.4); Platelet Count 253 X10*3/uL (160-400); Red Cell Distribution Width 15.1 % (11.0-16.0); White Blood Count 9.5 X10*3/uL (4.8-10.8)
[2022-01-17] MEDS: Docusate Sodium 100 MG/10 ML LIQUID 200 MG PO (10:44)
[2022-01-17] MEDS: Loratadine 10 MG TABLET PO (10:45)
[2022-01-17] MEDS: OLANZapine 10 MG TABLET PO (10:45)
[2022-01-17] MEDS: Doxazosin Mesylate 2 MG TABLET 8 MG PO (10:45)
[2022-01-17] MEDS: Escitalopram Oxalate 10 MG TABLET 30 MG PO (10:45)
[2022-01-17] MEDS: Nystatin Powder 15 GM BOTTLE 1 APPL TOPICAL ×2 (10:46→20:21)
[2022-01-17] MEDS: polyethylene glycoL 3350 17 GM POWD.PACK PO (10:47)
[2022-01-17] MEDS: 0.9 % Sodium Chloride Flush 3 ML SYRINGE IVFLUSH ×3 (10:47→20:22)
[2022-01-17] MEDS: Magnesium Hydrox/Alum Hydrox 30 ML ORAL.SUSP 10 ML PO ×3 (10:58→17:42)
[2022-01-17 11:35] VITALS: BP 102/65; PULSE 72; RESP 17; TEMP 35.6; O2SAT 95
--- NOTE | 2022-01-17 12:57 | P.PNIM_ITS ---
Subjective Subjective Date of Service: 01/17/22 Interval History: cc: cough, fever, tachypnea, concern for aspiration interval history: s/p PEG 01/09, no new issues, tolerating PEG Review of Systems no fever no sob Physical Exam Vital Signs: Vital Signs: Last Vital Signs Temp 96.0 F L 01/17/22 11:35 Pulse 72 01/17/22 11:35 Resp 17 01/17/22 11:35 BP 102/65 01/17/22 11:35 Pulse Ox 95 01/17/22 11:35 O2 Del Method 01/17/22 11:35 O2 Flow Rate 2 01/17/22 07:45 BMI result Body Mass Index 22.6 Objective Data Active Medications Acetaminophen (Acetaminophen 325 Mg Tablet) 650 mg PO Q6H PRN PRN Reason: Pain, Mild (Pain Scale 1-3) Last Admin: 01/16/22 23:38 Dose: 650 mg Documented By: VICKY Al Hydroxide/Mg Hydroxide (Magnesium Hydrox/Alum Hydrox 30 Ml Oral.Susp) 10 ml PO QIDWMHS [facility] Last Admin: 01/17/22 10:58 Dose: 10 ml Documented By: MAIDA Benzonatate (Benzonatate 100 Mg Capsule) 100 mg PO TID PRN PRN Reason: Cough Docusate Sodium (Docusate Sodium 100 Mg/10 Ml Liquid) 200 mg PO BID [facility] Last Admin: 01/17/22 10:44 Dose: 200 mg Documented By: MAIDA Doxazosin Mesylate (Doxazosin Mesylate 2 Mg Tablet) 8 mg PO DAILY [facility]; Protocol Last Admin: 01/17/22 10:45 Dose: 8 mg Documented By: MAIDA Enoxaparin Sodium (Enoxaparin Sodium 40 Mg/0.4 Ml Syringe) 40 mg SUBCUT Q24H [facility] Last Admin: 01/16/22 16:22 Dose: 40 mg Documented By: LACY Escitalopram Oxalate (Escitalopram Oxalate 10 Mg Tablet) 30 mg PO DAILY [facility] Last Admin: 01/17/22 10:45 Dose: 30 mg Documented By: MAIDA Finasteride (Finasteride 5 Mg Tablet) 5 mg PO DAILY [facility] Last Admin: 01/17/22 10:46 Dose: Not Given Documented By: MAIDA Non-Admin Reason: NPO Guaifenesin/Dextromethorphan (Guaifenesin Dm 200/20/10 Ml 10 Ml Syrup) 10 ml PO Q6H PRN PRN Reason: Cough Ampicillin Sodium/Sulbactam (Sodium 3 gm/ Sodium Chloride) 100 mls @ 200 mls/hr IV Q6H [facility] Last Infusion: 01/17/22 12:11 Dose: 0 mls/hr Documented By: MAIDA Loratadine (Loratadine 10 Mg Tablet) 10 mg PO DAILY [facility] Last Admin: 01/17/22 10:45 Dose: 10 mg Documented By: MAIDA Magnesium Hydroxide (Milk Of Magnesia 30 Ml Oral.Susp) 30 ml PO DAILY PRN PRN Reason: Constipation Nystatin (Nystatin Powder 15 Gm Bottle) 1 appl TOPICAL BID [facility]; Protocol Last Admin: 01/17/22 10:46 Dose: 1 appl Documented By: MAIDA Olanzapine (Olanzapine 10 Mg Tablet) 10 mg PO DAILY [facility] Last Admin: 01/17/22 10:45 Dose: 10 mg Documented By: MAIDA Olanzapine (Olanzapine 10 Mg Tablet) 20 mg PO BEDTIME [facility] Last Admin: 01/16/22 22:27 Dose: 20 mg Documented By: VICKY Omeprazole (Omeprazole 20 Mg/10 Ml Susp.Recon) 40 mg G-TUBE DAILY@1600 [facility] Last Admin: 01/16/22 16:38 Dose: 40 mg Documented By: LACY Pharmacy Consult (Consult Rx Perform Med Rec) 1 each MISCELLANE ONCE PRN PRN Reason: Consult order Pharmacy Consult (Consult Rx Perform Med Rec) 1 each MISCELLANE ONCE PRN PRN Reason: Consult order Polyethylene Glycol (Polyethylene Glycol 3350 17 Gm Powd.Pack) 17 gm PO BID [facility] Last Admin: 01/17/22 10:47 Dose: 17 gm Documented By: MAIDA Psyllium Hydrophilic Mucilloid (Psyllium Seed 3.4 Gm Powd.Pack) 3.4 gm PO BID [facility] Last Admin: 01/17/22 10:47 Dose: 3.4 gm Documented By: MAIDA Simethicone (Simethicone 40 Mg/0.6 Ml 30 Ml Drops.Susp) 40 mg PO TID@0800,1600,2000 [facility] Last Admin: 01/17/22 10:47 Dose: 40 mg Documented By: MAIDA Sodium Chloride (0.9 % Sodium Chloride Flush 3 Ml Syringe) 3 ml IVFLUSH QSHIFT [facility] Last Admin: 01/17/22 10:47 Dose: 3 ml Documented By: MAIDA Valproic Acid (Valproic Acid (As Sodium Salt) 250 Mg/5 Ml Solution) 1,000 mg PO BID [facility] Last Admin: 01/17/22 10:44 Dose: 1,000 mg Documented By: MAIDA Labs CBC & Chem 7: 01/17/22 09:56 01/16/22 10:10 Labs: Laboratory Results - last 24 hr 01/17/22 09:56 MCV 94.7 MCH 30.6 MCHC 32.3 RDW 15.1 Plt Count 253 MPV 10.3 Absolute Nucleated RBC 0.000 Nucleated RBC % (auto) 0.0 Assessment and Plan (1) Severe sepsis: Status: Acute (2) Pneumonia: Status: Resolved Plan A 66-year-old nonverbal male resident of a longterm with autism, intellectual disability, OCD, bipolar disorder, seizure disorder, dysphagia, hypertension, hep B carrier, chronic constipation, nephrogenic diabetes insipidus, PICA, chronic normocytic anemia, CKD stage III she GERD, and recurrent aspiration pneumonia admitted for aspiration pneumonia with severe sepsis severe sepsis and acute hypoxic respiratory failure secondary to aspiration pneumonia--sepsis resolved,. CXR 01/12 ,no pneumonia, repeat xray 01/15 showed new inflitrate following an aspiration event, started on Augmentin, O2 sat is normal now, then WBC went yesterday to 19, started on Unassyn, now WBC is 9, off O2, change to PO Augmentin tomorrow Aspiration PNA--see above Dysphagia s/p PEG inserted 01/09, tolerating feed, changes per nutrition mood disorder, continue citalopram, olanzapine GERD continue PPI BPH continue finasteride, doxazosin need for inpatient: awaiting placement with PEG once longterm is ready for him Dispo: DC tomorrow Quality Stroke Does the patient have a stroke diagnosis?: No VTE Prior VTE?: No VTE Risk Level:: Medical - moderate - high VTE Device Contraindication: Treatment Not Indicated VTE Drug Contraindication: N/A - Med Ordered
--- NOTE | 2022-01-17 13:05 | MHC.CM.PN ---
Addendum entered by Mini Vergara RN 01/17/22 13:19: MESSAGE LEFT FOR SENIOR L[facility]ING LUCIA HOYOS @ [phone] FOR A CALL BACK TO DISCUSS PATIENT ANTICIPATED 01/18 DC Original Note: PLAN IS BACK TO SENIOR LIVING TOMORROW (01/18/22) [facility] ( TUBE-FEEDS SUPPLIER) [phone] AWARE OF PLAN. STAFF (IN ROOM) ALSO AWARE THIS SLOTTER OPERATOR TO CONTACT [facility] (SENIOR LIVING RN) TO INFORM HER WELL.
[2022-01-17 15:57] VITALS: BP 108/59; PULSE 77; RESP 18; TEMP 36.9; O2SAT 99
[2022-01-17] MEDS: Enoxaparin Sodium 40 MG/0.4 ML SYRINGE SUBCUT (17:41)
[2022-01-17 19:06] VITALS: BP 105/65; PULSE 78; RESP 18; TEMP 36.9; O2SAT 97
[2022-01-17] MEDS: OLANZapine 10 MG TABLET 20 MG PO (20:19)
[2022-01-18 03:02] VITALS: BP 109/59; PULSE 67; RESP 18; TEMP 36.8; O2SAT 95
[2022-01-18] MEDS: Ampicillin Sodium/Sulbactam Na 3 GM in 0.9 % Sodium Chloride 100 ML IV ×2 (05:02→09:35)
[2022-01-18 07:55] VITALS: BP 127/62; PULSE 73; RESP 18; TEMP 36.6; O2SAT 95
[2022-01-18] MEDS: Magnesium Hydrox/Alum Hydrox 30 ML ORAL.SUSP 10 ML PO ×2 (09:33→12:49)
[2022-01-18] MEDS: Finasteride 5 MG TABLET PO (09:33)
[2022-01-18] MEDS: Docusate Sodium 100 MG/10 ML LIQUID 200 MG PO (09:33)
[2022-01-18] MEDS: Loratadine 10 MG TABLET PO (09:34)
[2022-01-18] MEDS: OLANZapine 10 MG TABLET PO (09:34)
[2022-01-18] MEDS: Escitalopram Oxalate 10 MG TABLET 30 MG PO (09:34)
[2022-01-18] MEDS: Doxazosin Mesylate 2 MG TABLET 8 MG PO (09:34)
[2022-01-18] MEDS: 0.9 % Sodium Chloride Flush 3 ML SYRINGE IVFLUSH (09:35)
[2022-01-18] MEDS: polyethylene glycoL 3350 17 GM POWD.PACK PO (09:35)
[2022-01-18] MEDS: Nystatin Powder 15 GM BOTTLE 1 APPL TOPICAL (09:36)
[2022-01-18 11:34] VITALS: BP 102/59; PULSE 67; RESP 18; TEMP 36.3; O2SAT 93
--- NOTE | 2022-01-18 12:57 | P.DS_ITS ---
DS: Providers Provider Date of Service: 01/18/22 Date of admission: 01/02/22 14:39 Primary care physician: Tomy Rangel MD Consults: 01/04/22 16:35 Consult to General Surgery Routine Consulting Provider: Frederick Holguin Reason for consultation: evaluation for PEG tube placement- recurrent aspiration pneumonia DS: Diagnosis Discharge Diagnosis (1) Severe sepsis: Status: Acute (2) Pneumonia: Status: Resolved DS: Summary Hospital Course Hospital Course: Chief Complaint: cough, fever 66-year-old nonverbal male resident of longterm with autism, intellectual disability, OCD, bipolar disorder, seizure disorder, dysphagia, hypertension, hep B carrier, chronic constipation, nephrogenic diabetes insipidus, PICA, chronic normocytic anemia, CKD stage III she GERD, and recurrent aspiration pneumonia presented to the ED, [facility], with complaint of increased productive cough, behavioral changes including unstable gait, and fever ongoing since this morning.? Patient had recent admission for aspiration pneumonia with discharge on 12/28/2021 and is currently still.? On arrival, patient febrile to 101.4, tachypneic to 22, tachycardic to 102.? No hypotension or hypoxia.? WBC 13.0 with 16% bands, lactic acid 2.3, 1.6 on 2 hour repeat.? Renal function and electrolyte level stable.? Negative for COVID-19, RSV, and influenza.? CXR showing bilateral increased interstitial markings slightly greater on the right side without any focal consolidation or pleural effusion.? Given history, presumed aspiration pneumonia.? Given 1 g ceftriaxone in the ED and 2 L IV NS.? Patient is fully vaccinated against COVID-19 and boosted.? Patient to be admitted for aspiration pneumonia with severe sepsis. Hospital course: This patient with advanced autism, intellectual disability and probably dementia, dysphagia and host of other issues as discussed above presented with fever, cough and was found to be severely septic with aspiration as cause. His aspiration pneumonia and sepis was succesfully treated with IV antibiotics with Unasyn and later Augmentin and repeat chest xray later showed resolution of the pneumonia on 01/12. He was initially on oxygen but he has been weaned off. Given his recurrent aspiration pneumonia and high risk of aspirating recommendation was mad for a PEG tube for feeding and this was performed on by Dr. Palmer on 01/09/22 and has been tolerating the feed rate as recommended by nutrion to achieve his coloric need but on night of 01/14 had an episode of vomitting and my have aspirated again, CXR showed infiltrates, his WBC went up to 19 the next day and had low grade fever. He was restarted on IV Unassyn for 2 more days and will change to oral Augmentin at discharge for 5 more days. He is to be strictly NPO and not even comfort food. Aspiration PNA-see above Dysphagia s/p? PEG inserted 01/09. Per nutriotion recommendation :\ PATIENT WITH HX CHRONIC ASPIRATION PNEUMONIA SO CONTINUOUS (NOT BOLUS) TUBE FEEDING RECOMMENDED. ADVANCE TO JEVITY 1.0 AT MAX GOAL RATE 70ML/HR CONTINUOUS WITH 120ML FREE WATER FLUSHES Q 6 HRS. PROVIDES 1781KCALS (28KCALS/KG), 74G PROTEIN (1.16G/KG), 1883ML (29.7 ML/KG) TOTAL WATER FROM FORMULA AND FLUSHES. MAY USE ALTERNATE FORMULA IN THE COMMUNITY IF JEVITY 1.0 NOT AVAILABLE. mood disorder, continue citalopram, olanzapine GERD continue PPI BPH continue finasteride, doxazosin all meds to be given via PEG-- PATIENT WITH HX CHRONIC ASPIRATION PNEUMONIA SO CONTINUOUS (NOT BOLUS) TUBE FEEDING RECOMMENDED. ADVANCE TO JEVITY 1.0 AT MAX GOAL RATE 70ML/HR CONTINUOUS WITH 120ML FREE WATER FLUSHES Q 6 HRS. PROVIDES 1781KCALS (28KCALS/KG), 74G PROTEIN (1.16G/KG), 1883ML (29.7 ML/KG) TOTAL WATER FROM FORMULA AND FLUSHES. MAY USE ALTERNATE FORMULA IN THE COMMUNITY IF JEVITY 1.0 NOT AVAILABLE. Pt to say NPO--No comfort food Gtube only to be changed by MD or a qualified RN If Gtube is disloged or comes pt should be brought promptly to an emergency department to be repositioned Do oral care every shift and no less than twice a day Take Augmemtin as recommended for 5 days Time Spent with Patient Time attestation: Total time spent providing and/or coordinating discharge services: Discharge coordination time: Greater than 30 minutes Quality: Safe Use of Opioids Does Pt have an Active Cancer Diagnosis on the Problem List?: No Quality: Stroke Does the patient have a stroke diagnosis?: No Physical Exam Vital Signs: Vital Signs: Selected Entries 01/18/22 11:34 Temperature 97.4 F Pulse Rate 67 Respiratory Rate 18 Blood Pressure 102/59 L Pulse Oximetry 93 Oxygen Delivery Me thod Nasal Cannula General: Non communicative, no distress Resp: lungs clear, normal breathing pattern CVS: S1,S2,RRR GI: +BS, NT, no distention Skin: No rash Neuro: motor grossly intact for him Psych: flat but this baseline Discharge Plan Discharge Anticipated Discharge Date/Time: 01/18/22 12:40 Patient Disposition: Home Health Service Discharge Diagnosis: Sepsis, aspiration pneumonia, Dysphagia Referrals: [facility] [Other] - 1 Day (GTUBE SUPPLIES AND NUTRITION) Tomy Rangel MD [Primary Care Provider] - 1 Week Discharge Medications: New docusate sodium 60 mg/15 mL syrup 100 mg PO BEDTIME Qty: 480 0RF amoxicillin-pot clavulanate [Augmentin] 250-62.5 mg/5 mL suspension for reconstitution 20 ml PO Q8H Qty: 300 0RF Continued bacitracin zinc 500 unit/gram ointment 1 appl topical BID PRN (Reason: Wound Care) Best Fiber 3 gram/3.5 gram Powder 1 packet PO BID Qty: 236 0RF Rx Instructions: mix into at least 4 oz water or juice before administering Changed Acid Gone Antacid 95-358 mg/15 mL suspension 10 ml feeding tube QIDWMHS Qty: 355 0RF acetaminophen 325 mg tablet 650 mg feeding tube Q6H PRN (Reason: Pain) Qty: 60 0RF dextromethorphan-guaifenesin 10-100 mg/5 mL Liquid 10 ml feeding tube Q6H PRN (Reason: Cough) Qty: 500 0RF olanzapine 10 mg tablet 10 mg feeding tube DAILY Qty: 60 0RF citalopram 20 mg tablet 60 mg feeding tube DAILY Qty: 60 0RF doxazosin 8 mg tablet 8 mg feeding tube DAILY 90 Days Qty: 90 3RF magnesium hydroxide [Milk of Magnesia] 400 mg/5 mL suspension 30 ml feeding tube DAILY PRN (Reason: Constipation) Qty: 355 0RF valproic acid (as sodium salt) 250 mg/5 mL solution 1,000 mg feeding tube BID Qty: 473 0RF omeprazole 20 mg capsule,delayed release(DR/EC) 40 mg feeding tube DAILY@1600 Qty: 30 0RF Rx Instructions: needs to be given with water juice or snack simethicone [Gas Relief (simethicone)] 40 mg/0.6 mL drops,suspension 40 mg feeding tube TID@0800,1600,1999 Qty: 30 0RF polyethylene glycol 3350 17 gram/dose powder 17 g feeding tube BID Qty: 510 0RF Rx Instructions: hold if more than 3 BM's in 1 day olanzapine 20 mg tablet 20 mg feeding tube BEDTIME Qty: 30 0RF finasteride 5 mg tablet 5 mg feeding tube DAILY 90 Days Qty: 90 3RF loratadine 10 mg tablet 10 mg feeding tube DAILY Qty: 60 0RF Discontinued docusate sodium 100 mg capsule 200 mg PO BID@0800,1999 Discharge Orders: Discharge Order (Routine); Ordered 01/18/22 Ordered By: Boom Iverson Diet: Tube feed Activity on Discharge: As tolerated Stand Alone Forms: Patient Portal Discharge page Care Plan Goals: Prevention of aspiration and control of dysphagia Health Concerns: To have tube feed as directed Plan of Treatment: PATIENT WITH HX CHRONIC ASPIRATION PNEUMONIA SO CONTINUOUS (NOT BOLUS) TUBE FEEDING RECOMMENDED. ADVANCE TO JEVITY 1.0 AT MAX GOAL RATE 70ML/HR CONTINUOUS WITH 120ML FREE WATER FLUSHES Q 6 HRS. PROVIDES 1781KCALS (28KCALS/KG), 74G PROTEIN (1.16G/KG), 1883ML (29.7 ML/KG) TOTAL WATER FROM FORMULA AND FLUSHES. MAY USE ALTERNATE FORMULA IN THE COMMUNITY IF JEVITY 1.0 NOT AVAILABLE. Pt to say NPO--No comfort food Gtube only to be changed by MD or a qualified RN If Gtube is disloged or comes pt should be brought promptly to an emergency department to be repositioned Do oral care every shift and no less than twice a day Take Augmemtin as recommended for 5 days Assessment: as above
--- NOTE | 2022-01-18 13:46 | MHC.CM.PN ---
Addendum entered by Deana Mariscal 01/18/22 16:10: WOULD LIKE PT TO HAVE NURSING SERVICES WELL TO ENSURE FEEDS ARE TOLERATED DUE TO THAT, [facility] IS UNABLE TO OFFER REFERRAL NOW OUT TO COMFORT PLUS HOME CARE AWAITING RESPONSE Addendum entered by Deana Mariscal 01/18/22 14:34: GLORIA RECEIVED ANOTHER CALL FROM [facility] AT [facility] SHE REPORTS THE PT USUALLY WALKS AND SHE IS WORRIED THAT HE HAS BEEN IN BED FOR SEVERAL DAYS SHE ASKS THAT A REFERRAL BE MADE TO [facility] FOR PT SERVICES SHE IS AWARE IT MAY BE SEVERAL DAYS BEFORE A [facility] CAN SEE HIM SHE IS AGREEABLE AND REPORTS THEY DO HAVE A PT THAT OVERSEES THE GROUP HOMES WELL Original Note: PT IS MEDICALLY CLEARED TO DC TODAY GLORIA CALLED [facility] ([phone]) BLENDING TECHNICIAN, WHO REQUESTED MEDICATION FORMS BE FAXED BACK TO THEM ALONG WITH THE ANSWERS TO THE QUESTIONS THEY HAD SUBMITTED COMPLETED MED FORMS AND ANSWERED QUESTIONS, FORMS WERE FAXED TO THEM AT [phone] [facility] REPORTS STAFF WILL BE PICKING UP PT THIS AFTERNOON ALL QUESTIONS ANSWERED AND DIETARY RECOMMENDATIONS INCLUDED IN DC PACKET GLORIA CALLED PTS SISTER/GUARDIAN KHURRAM [phone] AND INFORMED HER OF PENDING DC PTS MEDICARE RIGHTS WERE REVIEWED AGAIN AND SHE DECLINED TO RECEIVE A COPY
--- NOTE | 2022-01-18 14:38 | W.MHC.F2F ---
Service Date Service Date: 01/18/22 Encounter Date of encounter: 01/18/22 Reasons for Services Signs and symptoms assessed: aspiration pneumonia Reason for long term: medication treatment and teach disease management Reason for physical therapy: home safety and mobility and other Homebound: Leaving the home is medically contraindicated at this time without the asist of a device and/or another person due th the listed conditions above and below. Reason homebound: cognitively impaired / unsafe Homebound supporting statement: homebound due to cognitive impairment, aspirations and therefore needs the assitance of another person Certification: Based on the above findings, I certify that this patient is confined to the home and needs intermittent long term care, physical therapy and/or speech therapy, or continues to need occupational therapy. The patient is under my care, and I have initiated the establishment of the plan of care. The patient will be followed by a physician who will periodically review the plan of care.
[2022-01-18 15:28] VITALS: BP 112/68; PULSE 60; RESP 17; TEMP 36.1; O2SAT 93
== END 2022-01-18 15:40 | disposition home health service (06) | DRG 871 ==
LOC: HO.ED 11:58 → HO.EDOVER 15:12 → HO.S3 01-03 17:18
PROVIDERS: Internal Medicine; Physician Assistant Medical; Surgery; Admitting Provider Physician Assistant; Emergency Provider Emergency Medicine Emergency Medical Services; PCP Internal Medicine; Visit Provider Internal Medicine
PROC: 0DH63UZ Insertion of Feeding Device into Stomach, Percutaneous Approach (ICD-10-PCS; CPT 43246; principal; 2022-01-09 10:00)
DX: A41.9 Sepsis, unspecified organism (principal); J69.0 Pneumonitis due to inhalation of food and vomit; J96.01 Acute respiratory failure with hypoxia; F84.0 Autistic disorder; F42.9 Obsessive-compulsive disorder, unspecified; F31.9 Bipolar disorder, unspecified; K21.9 Gastro-esophageal reflux disease without esophagitis; N40.0 Benign prostatic hyperplasia without lower urinary tract symptoms; K59.09 Other constipation; G40.909 Epilepsy, unspecified, not intractable, without status epilepticus; R13.10 Dysphagia, unspecified; R65.20 Severe sepsis without septic shock; Z20.822 Contact with and (suspected) exposure to COVID-19; Z88.8 Allergy status to other drugs, medicaments and biological substances; Z79.899 Other long term (current) drug therapy
CPT/HCPCS: 0241U; 36415; 71045; 71250; 74018; 80048; 80053; 81003; 83605; 83735; 83880; 84145; 84484; 85007; 85025; 85027; 87040; 87449; 87633; 87640; 87641; 87899; 93005; 94640; 96365; 97162; 99285; J0295; J0690; J0696; J1100; J1650; J2405; J3010

== ENCOUNTER → 2022-02-02 13:27 | Outpatient (BNVA) | payer MEDICARE, MEDICAID, SELFPAY | PROVIDERS: PCP Internal Medicine; Visit Provider Urology | DX: N43.3 Hydrocele, unspecified (principal); N32.0 Bladder-neck obstruction | CPT/HCPCS: Q3014 ==

== ENCOUNTER 2022-04-11 21:31 | Emergency (ER) | payer MEDICARE, MEDICAID, SELFPAY ==
--- NOTE | 2022-04-11 21:33 | ED.GENADULT ---
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 Otherwise tube is working fine feeding is normal no regurgitation of the fluid. No other complaints Related Data Home Medications Medication Instructions Recorded Confirmed bacitracin zinc 500 unit/gram 1 appl topical BID PRN Wound Care 12/24/21 02/02/22 topical ointment citalopram 40 mg tablet 40 mg PO DAILY 02/02/22 02/02/22 docusate sodium 50 mg/5 mL oral ml PO 02/02/22 02/02/22 liquid (Docu) nystatin 100,000 unit/gram topical 1 appl topical BID-TID 02/02/22 02/02/22 powder (Nystop) Previous Rx's Medication Instructions Recorded acetaminophen 325 mg tablet 650 mg feeding tube Q6H PRN Pain 01/16/22 #60 tabs aluminum hydrox-magnesium carb 95 10 ml feeding tube QIDWMHS #355 mL 01/16/22 mg-358 mg/15 mL oral suspension (Acid Gone Antacid) citalopram 20 mg tablet 60 mg feeding tube DAILY #60 tabs 01/16/22 dextromethorphan-guaifenesin 10 10 ml feeding tube Q6H PRN Cough 01/16/22 mg-100 mg/5 mL oral liquid #500 mL loratadine 10 mg tablet 10 mg feeding tube DAILY #60 tabs 01/16/22 magnesium hydroxide 400 mg/5 mL 30 ml feeding tube DAILY PRN 01/16/22 oral suspension (Milk of Magnesia) Constipation #355 mL olanzapine 10 mg tablet 10 mg feeding tube DAILY #60 tabs 01/16/22 olanzapine 20 mg tablet 20 mg feeding tube BEDTIME #30 tabs 01/16/22 omeprazole 20 mg capsule,delayed 40 mg feeding tube DAILY@1600 #30 01/16/22 release caps polyethylene glycol 3350 17 17 g feeding tube BID #510 grams 01/16/22 gram/dose oral powder simethicone 40 mg/0.6 mL oral 40 mg (0.6 mL) feeding tube 01/16/22 drops,suspension (Gas Relief TID@0800,1600,2000 #30 mL (simethicone)) valproic acid (as sodium salt) 250 1,000 mg (20 mL) feeding tube BID 01/16/22 mg/5 mL oral solution #473 mL wheat dextrin 3 gram/3.5 gram oral 1 packet PO BID #236 grams 01/16/22 powder (Best Fiber) amoxicillin 250 mg-potassium 20 ml PO Q8H #300 mL 01/18/22 clavulanate 62.5 mg/5 mL oral suspension (Augmentin) docusate sodium 60 mg/15 mL oral 100 mg (25 mL) PO BEDTIME #480 mL 01/18/22 syrup zinc oxide 12 % topical cream 1 appl topical BID for skin 02/08/22 (Negar Protect (zinc oxide)) protection surrounding PEG tube #57 grams finasteride 5 mg tablet 5 mg feeding tube DAILY 90 days 02/28/22 #90 tabs Allergies Allergy/AdvReac Type Severity Reaction Status Date / Time haloperidol [From HALDOL] AdvReac Unknown UNKNOWN Verified 12/09/19 11:22 metoclopramide [From REGLAN] AdvReac Unknown UNKNOWN Verified 12/09/19 11:22 Review of Systems Review of Systems: Yes Unobtainable due to mental status PMFSH Past Medical History Medical History Anemia Autism Bipolar 1 disorder BPH (benign prostatic hyperplasia) Chronic renal disease Developmental non-verbal disorder Dysphagia Dysphagia GERD (gastroesophageal reflux disease) Hiatal hernia Hydrocele Hyperlipemia Hypertension Mentally challenged OCD (obsessive compulsive disorder) Pica Pneumonia Seizures Surgical History H/O exploratory laparotomy History of colectomy Social History Social History Household Members: Other Household Members Other:: prison Housing: Other Housing Other:: prison Do you presently have visiting nurse or other home services: Yes Unable to assess alcohol history related to: Unable to respond Alcohol intake: never Patient Tobacco Use Status: Never used Tobacco Advance Directives: No Advance Directives Information Provided: Yes Advance Directives Date on File: 12/24/21 service: No Current occupational status: disabled Physical Exam ED Vital Signs: Vital Signs - 24 hr 04/11/22 21:51 Temperature 98.4 F Pulse Rate 67 Respiratory Rate 16 Blood Pressure 113/73 Pulse Oximetry 95 Oxygen Delivery Method Room Air BMI result Body Mass Index 19.3 Appearance: Alert. Oriented X3. No acute distress. ENT: Pharynx normal. Oral Mucosa moist Neck: Normal inspection. Neck supple. CVS: Normal heart rate and rhythm. Pulses normal. Respiratory: No respiratory distress. Equal air entry bilateral, no wheezing/rales/rhonchi Abdomen: Soft and nontender. Bowel sounds are present, no mass palpable, G-tube in place with stoma granulation tissue no pus discharge no signs of infection Skin: Skin warm and dry. Normal skin color. Normal skin turgor. Extremities: No lower extremity edema. Neuro: Alert contracted posture Medications Administered Discontinued Medications Generic Name Dose Route Start Last Admin Trade Name Freq PRN Reason Stop Dose Admin Bacitracin 1 appl 04/11/22 21:47 04/11/22 21:55 Bacitracin Oint 0.9 Gm Packet TOPICAL 04/11/22 21:48 1 appl ONCE ONE Administration Protocol Medical Decision Making Medical Decision Making MDM Narrative: GT working normally no signs of infection granulation tissue was cleaned, bacitracin and dressing was applied Discharge Plan Discharge Clinical Impression: Gastric tube granulation tissue Patient Disposition: Home, Self-Care Instructions: How to Use and Care for Your PEG Tube (ED) Additional Instructions: Local care as advised Apply bacitracin ointment and a dressing Prescriptions: No Action Negar Protect (zinc oxide) 12 % cream 1 appl topical BID Qty: 57 3RF Rx Instructions: apply to irritated skin surrounding PEG-tube finasteride 5 mg tablet 5 mg feeding tube DAILY 90 Days Qty: 90 3RF bacitracin zinc 500 unit/gram ointment 1 appl topical BID PRN (Reason: Wound Care) Acid Gone Antacid 95-358 mg/15 mL suspension 10 ml feeding tube QIDWMHS Qty: 355 0RF acetaminophen 325 mg tablet 650 mg feeding tube Q6H PRN (Reason: Pain) Qty: 60 0RF dextromethorphan-guaifenesin 10-100 mg/5 mL Liquid 10 ml feeding tube Q6H PRN (Reason: Cough) Qty: 500 0RF olanzapine 10 mg tablet 10 mg feeding tube DAILY Qty: 60 0RF citalopram 20 mg tablet 60 mg feeding tube DAILY Qty: 60 0RF magnesium hydroxide [Milk of Magnesia] 400 mg/5 mL suspension 30 ml feeding tube DAILY PRN (Reason: Constipation) Qty: 355 0RF valproic acid (as sodium salt) 250 mg/5 mL solution 1,000 mg feeding tube BID Qty: 473 0RF omeprazole 20 mg capsule,delayed release(DR/EC) 40 mg feeding tube DAILY@1600 Qty: 30 0RF Rx Instructions: needs to be given with water juice or snack simethicone [Gas Relief (simethicone)] 40 mg/0.6 mL drops,suspension 40 mg feeding tube TID@0800,1600,2000 Qty: 30 0RF polyethylene glycol 3350 17 gram/dose powder 17 g feeding tube BID Qty: 510 0RF Rx Instructions: hold if more than 3 BM's in 1 day olanzapine 20 mg tablet 20 mg feeding tube BEDTIME Qty: 30 0RF loratadine 10 mg tablet 10 mg feeding tube DAILY Qty: 60 0RF Best Fiber 3 gram/3.5 gram Powder 1 packet PO BID Qty: 236 0RF Rx Instructions: mix into at least 4 oz water or juice before administering docusate sodium 60 mg/15 mL syrup 100 mg PO BEDTIME Qty: 480 0RF amoxicillin-pot clavulanate [Augmentin] 250-62.5 mg/5 mL suspension for reconstitution 20 ml PO Q8H Qty: 300 0RF docusate sodium [Docu] 50 mg/5 mL liquid PO citalopram 40 mg tablet 40 mg PO DAILY nystatin [Nystop] 100,000 unit/gram powder 1 appl topical BID-TID
[2022-04-11 21:36] VITALS: BP 136/90; PULSE 90
[2022-04-11 21:50] VITALS: BMI 19.3
[2022-04-11 21:51] VITALS: BP 113/73; PULSE 67; RESP 16; TEMP 36.9; O2SAT 95
[2022-04-11] MEDS: Bacitracin Oint 0.9 GM PACKET 1 APPL TOPICAL (21:55)
--- NOTE | 2022-04-11 21:58 | PC.NURSE ---
Dr. Solares into assess pt, site cleaned and Bactrian applied. pt is in no distress. Plan is for [facility].Will continue to monitor.
== END 2022-04-11 23:05 | disposition home or self-care (01) ==
PROVIDERS: Emergency Provider Internal Medicine
DX: R10.13 Epigastric pain (principal); Z79.899 Other long term (current) drug therapy
CPT/HCPCS: 99282; 99283

== ENCOUNTER → 2022-06-20 09:53 | Outpatient (BNVA) | payer MEDICARE, MEDICAID, SELFPAY | PROVIDERS: Visit Provider Surgery | DX: R13.10 Dysphagia, unspecified (principal) | CPT/HCPCS: 99212 ==

== ENCOUNTER 2022-11-10 06:35 | Inpatient (IN) | payer MEDICARE, MEDICAID, SELFPAY ==
[2022-11-10] VITALS (27 sets, daily range): BP systolic 75–119; BP diastolic 40–69; PULSE 82–124; RESP 16–30; TEMP 36.1–38.9; O2SAT 82–97; BMI 25.3; BMI 26.7
--- NOTE | ~2022-11-10 | XR_ITS ---
EXAMINATION: XR CHEST CLINICAL INFORMATION: Shortness of breath. Hypoxia. COMPARISON: Chest x-ray January 15, 2022 TECHNIQUE: Frontal view of the chest was obtained. FINDINGS: Cardiac silhouette is normal in size. The lungs are mildly hypoinflated. Patchy airspace disease centered in the right midlung. No gross pleural effusion. No pneumothorax. XR/XR chest 1V IMPRESSION: Patchy airspace disease centered in the right midlung most concerning for infiltrate. A similar but slightly less prominent picture was noted on January 15, 2022 x-ray. Follow-up radiographs are recommended status post treatment to ensure complete resolution.
--- NOTE | 2022-11-10 06:43 | ECG_ITS ---
Test Reason : WEAKNESS Blood Pressure : / mmHG Vent. Rate : 124 BPM Atrial Rate : 124 BPM P-R Int : 140 ms QRS Dur : 074 ms QT Int : 404 ms P-R-T Axes : 068 043 074 degrees QTc Int : [address] depression in Anterior leads ST & T wave abnormality, consider inferior ischemia Abnormal ECG When compared with ECG of 02-JAN-2022 10:13, T wave inversion now evident in Inferior leads ST now depressed in Anterior leads Heart rate has increased Referred By: Martha Del Rio Electronically Signed By:JEANNIE PRIETO
--- NOTE | 2022-11-10 06:55 | ED_ITS ---
HPI - General Adult General Chief complaint: Dyspnea Stated complaint: Sepsis Time Seen by Provider: 11/10/22 06:39 Source: EMS and old records reviewed Mode of arrival: EMS Limitations: physical limitation (nonverbal at baseline) History of Present Illness HPI narrative: 67 yo male with history of autism, developmental delay, nonverbal at baseline, bipolar disorder, dysphagia s/p PEG 2021, hx ileus, bladder outlet obstruction, GERD, hx recurrent aspiration pneumonia, CKD III, HTN, HLD, OCD, seizures, who presents to the ER from his skilled nursing via EMS for evaluation of potential fever. Upon assessment this morning staff thought he felt warm. EMS found the patient tachycardic 120s, tachypneic 30s, with BP 90/40s. He was hypoxic to 82% on room air, was placed on 15L NRB O2 and sats improved to mid 90s. MD complaint: fever, reported sepsis Onset (ago): unknown Treatments prior to arrival: none Related Data Home Medications Medication Instructions Recorded Confirmed bacitracin zinc 500 unit/gram 1 appl topical BID PRN Wound Care 12/24/21 06/20/22 topical ointment citalopram 40 mg tablet 40 mg PO DAILY 02/02/22 06/20/22 docusate sodium 50 mg/5 mL oral ml PO 02/02/22 06/20/22 liquid (Docu) nystatin 100,000 unit/gram topical 1 appl topical BID-TID 02/02/22 06/20/22 powder (Nystop) Previous Rx's Medication Instructions Recorded acetaminophen 325 mg tablet 650 mg (2 x 325 mg) feeding tube 01/16/22 Q6H PRN Pain #60 tabs aluminum hydrox-magnesium carb 95 10 ml feeding tube QIDWMHS #355 mL 01/16/22 mg-358 mg/15 mL oral suspension (Acid Gone Antacid) citalopram 20 mg tablet 60 mg (3 x 20 mg) feeding tube 01/16/22 DAILY #60 tabs dextromethorphan-guaifenesin 10 10 ml feeding tube Q6H PRN Cough 01/16/22 mg-100 mg/5 mL oral liquid #500 mL loratadine 10 mg tablet 10 mg feeding tube DAILY #60 tabs 01/16/22 magnesium hydroxide 400 mg/5 mL 30 ml feeding tube DAILY PRN 01/16/22 oral suspension (Milk of Magnesia) Constipation #355 mL olanzapine 10 mg tablet 10 mg feeding tube DAILY #60 tabs 01/16/22 olanzapine 20 mg tablet 20 mg feeding tube BEDTIME #30 tabs 01/16/22 omeprazole 20 mg capsule,delayed 40 mg (2 x 20 mg) feeding tube 01/16/22 release DAILY@1600 #30 caps polyethylene glycol 3350 17 17 g feeding tube BID #510 grams 01/16/22 gram/dose oral powder simethicone 40 mg/0.6 mL oral 40 mg (0.6 mL) feeding tube 01/16/22 drops,suspension (Gas Relief TID@0800,1600,2000 #30 mL (simethicone)) valproic acid (as sodium salt) 250 1,000 mg (20 mL) feeding tube BID 01/16/22 mg/5 mL oral solution #473 mL wheat dextrin 3 gram/3.5 gram oral 1 packet PO BID #236 grams 01/16/22 powder (Best Fiber) amoxicillin 250 mg-potassium 20 ml PO Q8H #300 mL 01/18/22 clavulanate 62.5 mg/5 mL oral suspension (Augmentin) docusate sodium 60 mg/15 mL oral 100 mg (25 mL) PO BEDTIME #480 mL 01/18/22 syrup finasteride 5 mg tablet 5 mg feeding tube DAILY 90 days 02/28/22 #90 tabs #18 MACKENZIE gastrostomy feeding #1 ea 06/20/22 zinc oxide 13 % topical cream 1 appl topical BID #57 grams 07/03/22 (Desitin Rapid Relief) Allergies Allergy/AdvReac Type Severity Reaction Status Date / Time haloperidol [From HALDOL] AdvReac Unknown UNKNOWN Verified 06/20/22 09:58 metoclopramide [From REGLAN] AdvReac Unknown UNKNOWN Verified 06/20/22 09:58 Review of Systems 2 Review of Systems: Yes Unobtainable due to mental condition and Unobtainable due to mental status PMFSH Past Medical History Medical History Anemia Autism Bipolar 1 disorder BPH (benign prostatic hyperplasia) Chronic renal disease Developmental non-verbal disorder Dysphagia Dysphagia GERD (gastroesophageal reflux disease) Hiatal hernia Hydrocele Hyperlipemia Hypertension Mentally challenged OCD (obsessive compulsive disorder) Pica Pneumonia Seizures Surgical History H/O exploratory laparotomy History of colectomy Social History Social History Household Members: Other Household Members Other:: skilled nursing Housing: Other Housing Other:: skilled nursing Do you presently have visiting nurse or other home services: Yes Unable to assess alcohol history related to: Unable to respond Alcohol intake: never Patient Tobacco Use Status: Never used Tobacco Smoked in Last 30 Days: No Use of substances other than those prescribed or required for medical reasons: No Advance Directives: Yes Advance Directives on File: Yes Advance Directives Date on File: 12/24/21 service: No Current occupational status: disabled Physical Exam ED Vital Signs: Vital Signs - 24 hr 11/10/22 06:49 11/10/22 07:33 11/10/22 08:09 Temperature 102.1 F H Pulse Rate 124 H 112 H Respiratory Rate 30 H 18 22 H Blood Pressure 75/44 L 99/48 L Pulse Oximetry 91 L 90 L Oxygen Delivery Method Non-Rebreather Mask High Flow Nasal Cannula Oxygen Flow Rate 11/10/22 09:20 11/10/22 09:21 11/10/22 09:39 Temperature 99.9 F 99.9 F Pulse Rate 105 H 99 Respiratory Rate 22 H 18 Blood Pressure 89/50 L 93/50 L Pulse Oximetry 92 94 Oxygen Delivery Method High Flow Nasal Cannula High Flow Nasal Cannula Oxygen Flow Rate 11/10/22 10:23 11/10/22 10:24 11/10/22 10:27 Temperature Pulse Rate 100 100 107 H Respiratory Rate 22 H 22 H 22 H Blood Pressure 88/46 L 88/46 L 91/50 L Pulse Oximetry Oxygen Delivery Method High Flow Nasal Cannula Room Air High Flow Nasal Cannula High Flow Nasal Cannula Oxygen Flow Rate 11/10/22 10:45 11/10/22 10:50 11/10/22 11:22 Temperature Pulse Rate 98 97 95 Respiratory Rate 22 H 22 H 18 Blood Pressure 98/53 L 98/53 L 100/52 L Pulse Oximetry 90 L 92 90 L Oxygen Delivery Method High Flow Nasal Cannula High Flow Nasal Cannula High Flow Nasal Cannula Oxygen Flow Rate 11/10/22 11:47 11/10/22 11:52 11/10/22 13:19 Temperature 98.9 F Pulse Rate 98 90 Respiratory Rate 20 16 20 Blood Pressure 107/47 L 95/56 L Pulse Oximetry 92 94 Oxygen Delivery Method High Flow Nasal Cannula Oxymask Oxygen Flow Rate 10 11/10/22 13:52 11/10/22 14:41 11/10/22 15:07 Temperature 98.8 F Pulse Rate 90 91 90 Respiratory Rate 20 28 H 22 H Blood Pressure 91/56 L 94/59 L 97/57 L Pulse Oximetry 94 92 92 Oxygen Delivery Method Oxymask Room Air Aerosol Mask Oxymask Oxygen Flow Rate 10 10 11/10/22 15:31 11/10/22 15:38 Temperature Pulse Rate 87 Respiratory Rate Blood Pressure 96/43 L 102/49 L Pulse Oximetry 97 Oxygen Delivery Method Oxymask Oxygen Flow Rate 10 BMI result Body Mass Index 25.3 Appearance: Alert, awake. No acute distress. Head: normocephalic, atraumatic. Eyes: Pupils equal, round and reactive to light. ENT: Pharynx normal. No tonsillar swelling or exudate. Neck: Normal inspection. Neck supple. CVS: tachycardic, regular rhythm, HR 120s Pulses normal. Respiratory: Mild respiratory distress, RR 30. Breath sounds RLL crackles Abdomen: Well healed vertical surgical scar, PEG in LUQ, Soft and nontender. +BS x4 Skin: Skin very warm and dry. Normal skin color. Normal skin turgor. No rashes. Extremities: No lower extremity edema. No joint swelling. Contracted x4 Neuro/psych: awake, alert, nonverbal, tracks Course Reevaluation(s) Reevaluation #1: 1st liter infusing. BP improving w/ MAP 65 now Time: 08:08 Reevaluation #2: lactic acid 4.1. qualifying patient for severe sepsis/septic shock he is getting 2nd liter and BP stable low 90s w/ MAP 65. per sepsis protocol he will require 2,070 cc IVF for 30 cc/kg - protocol ordered. nursing aware total fluid required is 2,070 cc CXR w/ right sided PNA. zosyn ordered. MRSA screen pending. will start solumedrol for PNA remains on 60% HFNC w/ sats low 90s but breathing more comfortably now that temp is going down Time: 08:50 Reevaluation #3: focused sepsis exam completed at this time. completed 30 cc/kg sepsis fluids and albumin x1. MAP 70 at this time will start maintenance fluids and admit to IMC if BP remains stable Time: 10:42 Additional Reevaluation(s): 12:05 - lactic improving, will continue IVF @ 100cc/hr. current MAP 71. transitioned to 10L OxyMask because he is mouth breathing and intermittently desatting to high 80s. sats now 95% on 10L. will plan to admit to IMC. 12:51 - case d/w Dr. Jolley. does not recommend ICU level of care at this time. will monitor more in the ER and wean O2 as able. 14:20 - BP soft 90/50s w/ MAP 60, had been stable >65. Clinically he still appears dry on exam and would benefit from additional IVF. will hold off on central line and vasopressors at this time. d/w Dr. Ortiz who agrees. 16:00 - BP 100 systolic. resp status stable on 10L oxymask. more alert, HR 80s now. appears much improved. stable for admission to IMC. Consultations Consultation #1: ICU - Samreen Medications Administered Generic Name Dose Route Start Last Admin Trade Name Freq PRN Reason Stop Dose Admin Lactated Ringer's 1,000 mls @ 100 mls/hr 11/10/22 10:45 11/10/22 11:24 Lr IVCONT 100 mls/hr .Q10H RODOLFO Administration Discontinued Medications Generic Name Dose Route Start Last Admin Trade Name Freq PRN Reason Stop Dose Admin Acetaminophen 650 mg 11/10/22 07:09 11/10/22 07:28 Acetaminophen Supp 650 Mg Supp.Rect CO 11/10/22 07:10 650 mg ONCE ONE Administration Sodium Chloride 1,000 mls @ 999 mls/hr 11/10/22 06:45 11/10/22 08:38 Ns IVCONT 11/10/22 07:45 Infused .Q1H1M RODOLFO Infusion Piperacillin Sod/Tazobactam 100 mls @ 200 mls/hr 11/10/22 07:17 11/10/22 08:38 Sod 4.5 gm/ Sodium Chloride IV 11/10/22 07:46 Infused ONCE ONE Infusion Sodium Chloride 1,000 mls @ 999 mls/hr 11/10/22 08:15 11/10/22 10:07 Ns IVCONT 11/10/22 09:15 Infused .Q1H1M RODOLFO Infusion Sodium Chloride 2,070 mls @ 2,070 mls/hr 11/10/22 08:48 11/10/22 10:27 Ns 30 ml/kg infuse over 1 hr (2070 ml) 11/10/22 09:47 Infused IV Infusion .Q1H STA Albumin Human 100 mls @ 100 mls/hr 11/10/22 09:17 11/10/22 10:41 Kedbumin 25 % IV 11/10/22 10:16 Infused ONCE ONE Infusion Vancomycin HCl 1,500 mg/ 500 mls @ 333.333 mls/hr 11/10/22 10:21 11/10/22 13:17 Sodium Chloride IV 11/10/22 11:50 Infused ONCE ONE Infusion Sodium Chloride 1,000 mls @ 999 mls/hr 11/10/22 14:30 11/10/22 15:14 Ns IVCONT 11/10/22 15:30 999 mls/hr .Q1H1M RODOLFO Administration Methylprednisolone Sodium Succinate 40 mg 11/10/22 09:28 11/10/22 09:36 Methylprednisolone Sod Succ 40 Mg/Ml Vial IVPUSH 11/10/22 09:29 40 mg ONCE ONE Administration Medical Decision Making Medical Decision Making MDM Narrative: 07:18 - 67 yo male with history of autism, developmental delay, nonverbal at baseline, bipolar disorder, dysphagia s/p PEG 2021, ileus, bladder outlet obstruction, GERD, aspiration pneumonia, HTN, HLD, OCD, seizures, who presents to the ER from his skilled nursing via EMS for evaluation of potential fever. Temp 102, HR 110s, tachypneic 30, hypoxic requiring 15L NRB on arrival to the ER. Sepsis alert called. Concern for possible aspiration PNA given crackles in RLL and hypoxia, Empiric Zosyn ordered. Lactic acid 4.1. His BP is responding to IVF. 30cc/kg ordered. CXR w/ right sided PNA. No hx MRSA, PCR still pending. Will cover empirically with Vanco for now given his severe sepsis. patient admitted to the hospital for severe sepsis 2/[address] miramontes down to evaluate the patient and admits Differential Diagnosis Differential Diagnoses: The differential diagnosis associated with the presentation includes sepsis 2/2 aspiration pneumonia, community acquired PNA, viral sepsis, UTI Admission/Observation Consideration of admission/observation: Escalation of care including admission/observation considered Consult Healthcare Provider Management of the patient was discussed with: Hospitalist and Global Recruiter dr. kulwinder jolley Lab Data MDM Lab Attestation statement: I reviewed the patient's lab results. leukopenic, anemic, thrombocytopenic likely due to sepsis 11/10/22 07:43 11/10/22 07:44 Labs: Lab Results 11/10/22 11/10/22 11/10/22 Range/Units 07:26 07:43 07:44 WBC 3.5 L (4.8-10.8) X10*3/uL RBC 3.47 L (4.60-5.80) X10*6/uL Hgb 11.1 L (14.0-18.0) g/dl Hct 34.3 L (42.0-52.0) % MCV 98.8 H (80.0-98.0) fL MCH 32.0 (27.0-33.0) pg MCHC 32.4 (31.0-36.0) g/dl RDW 14.1 (11.0-16.0) % Plt Count 151 L D (160-400) X10*3/uL MPV 9.9 (9.4-12.4) fL Immature Gran % (Auto) 0.3 (0.0-0.4) % Neut % (Auto) 83.6 H (45-73) % Lymph % (Auto) 10.6 L (20-40) % Sawyer % (Auto) 4.9 (2-11) % Eos % (Auto) 0.3 (0-4) % Baso % (Auto) 0.3 (0-2) % Lymph # (Auto) 0.4 L (1.2-4.9) X10*3/uL Sawyer # (Auto) 0.2 (0.1-1.2) X10*3/uL Eos # (Auto) 0.0 (0.0-0.4) X10*3/uL Baso # (Auto) 0.0 (0.0-0.2) X10*3/uL Abs Immat Gran (auto) 0.01 (0.00-0.03) X10*3/uL Absolute Neuts (auto) 2.9 (2.0-8.3) x10*3/uL Absolute Nucleated RBC 0.000 (0.0-0.012) X10*3/uL Nucleated RBC % (auto) 0.0 (0.0-0.2) /100WBC VBG pH (7.32-7.43) VBG pCO2 mmHg VBG pO2 mmHg VBG HCO3 (22-26) mmol/L VBG O2 Saturation % VBG Base Excess mmol/L Sodium 140 (135-145) mmol/L Potassium 3.7 (3.3-5.1) mmol/L Chloride 104 (96-108) mmol/L Carbon Dioxide 26 (22-29) mmol/L Anion Gap 14 (12-20) BUN 27 H (9-16) mg/dL Creatinine 1.17 (0.5-1.4) mg/dL Estim Creat Clear Calc 53.2 Estimated GFR > 60 Random Glucose 90 (60-115) mg/dL Lactic Acid 4.1 H* (0.5-2.0) mmol/L Lactic Acid F/U @ 2Hr (0.5-2.0) mmol/L Lactic Acid F/U @ 4Hr (0.5-2.0) mmol/L Calcium 8.9 (8.4-10.2) mg/dL Magnesium 1.7 (1.6-2.6) mg/dL Total Bilirubin 0.3 (0.0-1.0) mg/dL Direct Bilirubin 0.1 (0.0-0.5) mg/dL AST 26 (5-37) U/L ALT 11 (0-40) U/L Alkaline Phosphatase 58 (39-117) U/L Troponin I High Sens 4.4 (<3.5-35.0) ng/L C-Reactive Protein 1.20 H (< or = 0.50) mg/dL Total Protein 6.5 (6.5-8.0) g/dL Albumin 3.0 L (3.5-5.0) g/dL Procalcitonin 3.51 ng/mL Urine Color Urine Appearance Urine pH (5.0-9.0) Ur Specific [place] (1.005-1.025) Urine Protein (Neg-Trace) mg/dL Urine Glucose (UA) (Negative) mg/dL Urine Ketones (Negative) mg/dL Urine Blood (Negative) Urine Nitrite (Negative) Ur Leukocyte Esterase (Negative) Urine RBC (0-2) /HPF Urine WBC (0-5) /HPF Ur Squamous Epith Cells (0-2) /HPF Urine Bacteria (None Seen) Hyaline Casts (0-2) /LPF Nasal Screen MRSA (PCR) (Negative) Nasal S. aureus Screen (Negative) Nasal MRSA/S.aureus Interp Influenza Type A (PCR) NEGATIVE (Negative) Influenza Type B (PCR) NEGATIVE (Negative) RSV RNA Qual (PCR) NEGATIVE (Negative) SARS-CoV-2 RNA (RT-PCR) NEGATIVE (Negative) 11/10/22 11/10/22 11/10/22 Range/Units 07:49 07:55 08:36 WBC (4.8-10.8) X10*3/uL RBC (4.60-5.80) X10*6/uL Hgb (14.0-18.0) g/dl Hct (42.0-52.0) % MCV (80.0-98.0) fL MCH (27.0-33.0) pg MCHC (31.0-36.0) g/dl RDW (11.0-16.0) % Plt Count (160-400) X10*3/uL MPV (9.4-12.4) fL Immature Gran % (Auto) (0.0-0.4) % Neut % (Auto) (45-73) % Lymph % (Auto) (20-40) % Sawyer % (Auto) (2-11) % Eos % (Auto) (0-4) % Baso % (Auto) (0-2) % Lymph # (Auto) (1.2-4.9) X10*3/uL Sawyer # (Auto) (0.1-1.2) X10*3/uL Eos # (Auto) (0.0-0.4) X10*3/uL Baso # (Auto) (0.0-0.2) X10*3/uL Abs Immat Gran (auto) (0.00-0.03) X10*3/uL Absolute Neuts (auto) (2.0-8.3) x10*3/uL Absolute Nucleated RBC (0.0-0.012) X10*3/uL Nucleated RBC % (auto) (0.0-0.2) /100WBC VBG pH 7.40 (7.32-7.43) VBG pCO2 50 mmHg VBG pO2 38 mmHg VBG HCO3 32 H (22-26) mmol/L VBG O2 Saturation 57.0 % VBG Base Excess 6.3 mmol/L Sodium (135-145) mmol/L Potassium (3.3-5.1) mmol/L Chloride (96-108) mmol/L Carbon Dioxide (22-29) mmol/L Anion Gap (12-20) BUN (9-16) mg/dL Creatinine (0.5-1.4) mg/dL Estim Creat Clear Calc Estimated GFR Random Glucose (60-115) mg/dL Lactic Acid (0.5-2.0) mmol/L Lactic Acid F/U @ 2Hr (0.5-2.0) mmol/L Lactic Acid F/U @ 4Hr (0.5-2.0) mmol/L Calcium (8.4-10.2) mg/dL Magnesium (1.6-2.6) mg/dL Total Bilirubin (0.0-1.0) mg/dL Direct Bilirubin (0.0-0.5) mg/dL AST (5-37) U/L ALT (0-40) U/L Alkaline Phosphatase (39-117) U/L Troponin I High Sens (<3.5-35.0) ng/L C-Reactive Protein (< or = 0.50) mg/dL Total Protein (6.5-8.0) g/dL Albumin (3.5-5.0) g/dL Procalcitonin ng/mL Urine Color Yellow Urine Appearance Clear Urine pH 7.5 (5.0-9.0) Ur Specific [place] 1.015 (1.005-1.025) Urine Protein Negative (Neg-Trace) mg/dL Urine Glucose (UA) Negative (Negative) mg/dL Urine Ketones Negative (Negative) mg/dL Urine Blood Negative (Negative) Urine Nitrite Negative (Negative) Ur Leukocyte Esterase Trace H (Negative) Urine RBC 0-2 (0-2) /HPF Urine WBC 11-20 H (0-5) /HPF Ur Squamous Epith Cells 0-2 (0-2) /HPF Urine Bacteria None Seen (None Seen) Hyaline Casts 0-2 (0-2) /LPF Nasal Screen MRSA (PCR) NEGATIVE (Negative) Nasal S. aureus Screen NEGATIVE (Negative) Nasal MRSA/S.aureus Interp SEE NOTE Influenza Type A (PCR) (Negative) Influenza Type B (PCR) (Negative) RSV RNA Qual (PCR) (Negative) SARS-CoV-2 RNA (RT-PCR) (Negative) 11/10/22 11/10/22 Range/Units 11:15 15:01 WBC (4.8-10.8) X10*3/uL RBC (4.60-5.80) X10*6/uL Hgb (14.0-18.0) g/dl Hct (42.0-52.0) % MCV (80.0-98.0) fL MCH (27.0-33.0) pg MCHC (31.0-36.0) g/dl RDW (11.0-16.0) % Plt Count (160-400) X10*3/uL MPV (9.4-12.4) fL Immature Gran % (Auto) (0.0-0.4) % Neut % (Auto) (45-73) % Lymph % (Auto) (20-40) % Sawyer % (Auto) (2-11) % Eos % (Auto) (0-4) % Baso % (Auto) (0-2) % Lymph # (Auto) (1.2-4.9) X10*3/uL Sawyer # (Auto) (0.1-1.2) X10*3/uL Eos # (Auto) (0.0-0.4) X10*3/uL Baso # (Auto) (0.0-0.2) X10*3/uL Abs Immat Gran (auto) (0.00-0.03) X10*3/uL Absolute Neuts (auto) (2.0-8.3) x10*3/uL Absolute Nucleated RBC (0.0-0.012) X10*3/uL Nucleated RBC % (auto) (0.0-0.2) /100WBC VBG pH (7.32-7.43) VBG pCO2 mmHg VBG pO2 mmHg VBG HCO3 (22-26) mmol/L VBG O2 Saturation % VBG Base Excess mmol/L Sodium (135-145) mmol/L Potassium (3.3-5.1) mmol/L Chloride (96-108) mmol/L Carbon Dioxide (22-29) mmol/L Anion Gap (12-20) BUN (9-16) mg/dL Creatinine (0.5-1.4) mg/dL Estim Creat Clear Calc Estimated GFR Random Glucose (60-115) mg/dL Lactic Acid (0.5-2.0) mmol/L Lactic Acid F/U @ 2Hr 3.3 H* (0.5-2.0) mmol/L Lactic Acid F/U @ 4Hr 3.3 H* (0.5-2.0) mmol/L Calcium (8.4-10.2) mg/dL Magnesium (1.6-2.6) mg/dL Total Bilirubin (0.0-1.0) mg/dL Direct Bilirubin (0.0-0.5) mg/dL AST (5-37) U/L ALT (0-40) U/L Alkaline Phosphatase (39-117) U/L Troponin I High Sens (<3.5-35.0) ng/L C-Reactive Protein (< or = 0.50) mg/dL Total Protein (6.5-8.0) g/dL Albumin (3.5-5.0) g/dL Procalcitonin ng/mL Urine Color Urine Appearance Urine pH (5.0-9.0) Ur Specific [place] (1.005-1.025) Urine Protein (Neg-Trace) mg/dL Urine Glucose (UA) (Negative) mg/dL Urine Ketones (Negative) mg/dL Urine Blood (Negative) Urine Nitrite (Negative) Ur Leukocyte Esterase (Negative) Urine RBC (0-2) /HPF Urine WBC (0-5) /HPF Ur Squamous Epith Cells (0-2) /HPF Urine Bacteria (None Seen) Hyaline Casts (0-2) /LPF Nasal Screen MRSA (PCR) (Negative) Nasal S. aureus Screen (Negative) Nasal MRSA/S.aureus Interp Influenza Type A (PCR) (Negative) Influenza Type B (PCR) (Negative) RSV RNA Qual (PCR) (Negative) SARS-CoV-2 RNA (RT-PCR) (Negative) ABG Data ABG Results: 7.40/50/38 (venous) Attestation ABG: I personally reviewed and interpreted this ABG as follows: Interpretation: compensated, no acute respiratory acidosis Independent Interpretation I performed an independent interpretation of an: EKG and Plain X-Ray Interpretation: EKG with sinus tachycardia, HR 124 bpm, t-wave inversions in leads II and aVF which appear to be new compared to Dec 2021. no ST segment elevations CXR with multifocal patchy opacities in the right lung, worse than prior in Dec (when he had know aspiration PNA) Radiology Impression Discussion of test interpretation with radiology: I have reviewed the radiologist's reading. Radiologist Impression: EXAMINATION: XR CHEST CLINICAL INFORMATION: Shortness of breath. Hypoxia. COMPARISON: Chest x-ray January 15, 2022 TECHNIQUE: Frontal view of the chest was obtained. FINDINGS: Cardiac silhouette is normal in size. The lungs are mildly hypoinflated. Patchy airspace disease centered in the right midlung. No gross pleural effusion. No pneumothorax. XR/XR chest 1V IMPRESSION: Patchy airspace disease centered in the right midlung most concerning for infiltrate. A similar but slightly less prominent picture was noted on January 15, 2022 x-ray. Follow-up radiographs are recommended status post treatment to ensure complete resolution. Independent Historian Clinical information obtained from an independent historian. History obtained from or confirmed by: EMS External Record Review External record reviewed: Inpatient record, Outpatient record, Prior outpatient labs and Prior outpatient radiology Prescription Management I considered prescription management with: Antibiotic Chronic Conditions Patient?s care impacted by: Other (dysphagia and recurrent aspiration PNA) Critical Care Time Critical Care Time Critical Care Time: Yes Total Critical Care Time: 66 Attestation: I have personally provided critical care time exclusive of time spent on separately billable procedures. Time includes review of lab data, radiology results, discussion with consultants, and monitoring for potential decompensation. Intervention performed as documented. Discharge Plan Discharge Clinical Impression: Acute respiratory failure with hypoxia, Severe sepsis Pneumonia Qualifiers: Pneumonia type: due to unspecified organism Laterality: right Lung location: u nspecified part of lung Qualified Code(s): J18.9 - Pneumonia, unspecified organism Patient Disposition: Admitted As Inpatient
--- NOTE | 2022-11-10 07:02 | PC.NURSE ---
Report and hand off given to oncoming RN.
[2022-11-10] MEDS: 0.9 % Sodium Chloride 1,000 ML 999 ML IVCONT ×3 (07:08→15:14)
[2022-11-10] MEDS: Acetaminophen Supp 650 MG SUPP.RECT PR (07:28)
[2022-11-10 07:49] LABS: MANUAL DIFF FLAG NO
[2022-11-10 07:50] LABS: Basophils Percent Auto 0.3 % (0-2); Eosinophils Percent Auto 0.3 % (0-4); Hematocrit 34.3 % (42.0-52.0); Hemoglobin 11.1 g/dl (14.0-18.0); Imm Gran Abs Auto 0.01 X10*3/uL (0.00-0.03); Imm Gran Pct Auto 0.3 % (0.0-0.4); Lymphocytes Absolute Auto 0.4 X10*3/uL (1.2-4.9); Lymphocytes Percent Auto 10.6 % (20-40); Mean Corpuscular HGB Conc 32.4 g/dl (31.0-36.0); Mean Corpuscular Volume 98.8 fL (80.0-98.0); Mean Platelet Volume 9.9 fL (9.4-12.4); Monocytes Absolute Auto 0.2 X10*3/uL (0.1-1.2); Monocytes Percent Auto 4.9 % (2-11); Neutrophils Absolute Auto 2.9 x10*3/uL (2.0-8.3); Neutrophils Percent Auto 83.6 % (45-73); Platelet Count 151 X10*3/uL (160-400); Red Blood Count 3.47 X10*6/uL (4.60-5.80); Red Cell Distribution Width 14.1 % (11.0-16.0); White Blood Count 3.5 X10*3/uL (4.8-10.8)
[2022-11-10 07:53] LABS: Venous Blood Gas Refer to POC result
[2022-11-10 07:54] LABS: VBG Base Excess 6.3 mmol/L; VBG HCO3 32 mmol/L (22-26); VBG pCO2 50 mmHg; VBG pO2 38 mmHg
[2022-11-10] MEDS: Piperacillin Sodium/Tazobactam 4.5 GM in 0.9 % Sodium Chloride 100 ML IV ×3 (08:07→23:54)
--- NOTE | 2022-11-10 08:10 | PC.NURSE ---
Assumed care of patient at 0700. Patient with rectal temp 100.2, sinus tachy, hypotensive. Labs drawn per order, fluids and iv abt per order. long term updated on condition. Per nursing home patient has pica, cant have bandages on arms. long term # [phone]. Per nursing home everyone else in house had covid 2 weeks ago except steven
[2022-11-10 08:17] LABS: Alanine Aminotransferase 11 U/L (0-40); Alkaline Phosphatase 58 U/L (39-117); Anion Gap 14 (12-20); Aspartate Amino Transferase 26 U/L (5-37); Bilirubin Direct 0.1 mg/dL (0.0-0.5); Bilirubin Total 0.3 mg/dL (0.0-1.0); Blood Urea Nitrogen 27 mg/dL (9-16); Calcium 8.9 mg/dL (8.4-10.2); Carbon Dioxide 26 mmol/L (22-29); Chloride 104 mmol/L (96-108); Creatinine Clr Calc Pharmacy 53.2; Estimated Glomerular Filt Rate > 60; Glucose Random 90 mg/dL (60-115); Magnesium 1.7 mg/dL (1.6-2.6); Potassium 3.7 mmol/L (3.3-5.1); Sodium 140 mmol/L (135-145); Total Protein 6.5 g/dL (6.5-8.0)
[2022-11-10 08:18] LABS: Troponin-I High Sensitivity 4.4 ng/L (<3.5-35.0)
--- NOTE | 2022-11-10 08:19 | PC.NURSE ---
91% on high flow with no sob noted, BP 90/46.
[2022-11-10 08:28] LABS: Lactic Acid 4.1 mmol/L (0.5-2.0)
[2022-11-10 08:31] LABS: Procalcitonin 3.51 ng/mL
[2022-11-10 08:48] LABS: Appearance Urine Clear; Color Urine Yellow; Glucose Urine UA Negative (Negative); Leukocyte Esterase Urine Trace (Negative); Nitrite Urine Negative (Negative); PH 7.5 (5.0-9.0); Specific Gravity - Urine 1.015 (1.005-1.025); UMIC TRIGGER UACC YES; Urine Blood Negative (Negative); Urine Ketones Negative (Negative); Urine Protein Negative (Neg-Trace)
[2022-11-10] MEDS: Albumin Human 25 % 100 ML IV (09:28)
[2022-11-10] MEDS: methylPREDNISolone Sod Succ 40 MG/ML VIAL IVPUSH (09:36)
[2022-11-10 09:43] LABS: Bacteria Urine None Seen (None Seen); Hyaline Casts Urine 0-2 /LPF (0-2); RBC Urine 0-2 /HPF (0-2); Squamous Epithelial Cell Urine 0-2 /HPF (0-2); UACC Culture Trigger YES
[2022-11-10 09:51] LABS: Reflex Lactate? Lactic Acid Added
[2022-11-10 10:00] LABS: Influenza A PCR NEGATIVE (Negative); Influenza B PCR NEGATIVE (Negative); Resp Syncy Virus RNA Qual PCR NEGATIVE (Negative); SARS COV2 PCR INHOUSE NEGATIVE (Negative)
[2022-11-10] MEDS: SODIUM CHLORIDE 2070 ML IV (10:02)
--- NOTE | 2022-11-10 10:27 | PC.NURSE ---
total of 2,070mls of iv fluids infused per sepsis protocol
[2022-11-10] MEDS: vancomycin HCL 1,500 MG in 0.9 % Sodium Chloride 500 ML 333.33 MG IV (10:45)
--- NOTE | 2022-11-10 11:23 | PC.NURSE ---
NSR on monitor, alert, no s/s of pain or discomfort. BP 100/52, residential updated on condition
[2022-11-10] MEDS: Lactated Ringers 1,000 ML 100 ML IVCONT ×2 (11:24→20:50)
[2022-11-10 11:50] LABS: ~Lactic Acid-LAB USE ONLY 3.3 mmol/L (0.5-2.0)
--- NOTE | 2022-11-10 12:01 | PC.NURSE ---
Per RT recommendation incentive spectrometry attempted with patient, patient able to follow commands to blow into chamber. Provider aware.
--- NOTE | 2022-11-10 12:21 | PC.NURSE ---
Addendum entered by Maria Del Carmen Landers RN 11/10/22 17:53: 87% Original Note: *7% on high flow, provider notified, high flow switched to oxy mask at 15
--- NOTE | 2022-11-10 12:23 | PC.NURSE ---
87% on high flow, provider notified, switche dto oxy mask at 10liters, 91% at this time, RT notified
--- NOTE | 2022-11-10 12:42 | PC.NURSE ---
97%V on 10 liters via oxy mask
[2022-11-10 13:20] LABS: Reflex Lactate? 2 Y
--- NOTE | 2022-11-10 15:12 | PC.NURSE ---
Patient more alert, incont of large amount of urine, patient with scrotal edema that is normal for patient. Repositioned to right side. 93% on 10 l oxy mask, hr 89, nsr on monitor.
[2022-11-10 15:37] LABS: ~Lactic Acid-LAB USE ONLY 3.3 mmol/L (0.5-2.0)
[2022-11-10 15:42] LABS: MRSA Nasal PCR NEGATIVE (Negative); SA Nasal PCR NEGATIVE (Negative)
--- NOTE | 2022-11-10 16:50 | PHA.MEDREC ---
Pharmacy Consult ? Medication Reconciliation Pharmacy has completed the medication reconciliation. Patient with list from halfway
--- NOTE | 2022-11-10 17:07 | P.HPHOSP_ITS ---
History of Present Illness Date of Service: 11/10/22 Attending physician on admission: Cora Knox Chief Complaint: Fever, lethargy Pt is a 67-year-old male with a PMH significant for?autism, intellectual disability, OCD, bipolar disorder, seizure disorder, dysphagia, hypertension, hep B carrier, chronic constipation, nephrogenic diabetes insipidus, PICA, chronic normocytic anemia, CKD stage III she GERD, and recurrent aspiration pneumonia who presents to the ED from a retirement for evaluation of fever. Patient is nonverbal at baseline and thus incapable of providing HPI which is instead taken from chart and provider review. When EMS arrived they found the patient tachycardic into the 120s, tachypneic in the 30s, hypotensive at 90/40, and hypoxic as low as 82% on RA. Patient was placed on non-rebreather at 15L which improved saturation to 90s. Patient was brought to the emergency room and then transitioned to high-flow and eventually weaned to 10L on OxyMask. Patient was hypotensive in the emergency room and given sepsis bolus of 30 cc/kilogram and then placed on maintenance fluids. ICU was consulted but did not deem patient in need of ICU level of care. In the ED patient was febrile at 01:02 0.1, tachycardic to 124, tachypneic to 30, and hypotensive as low as 75/44. Patient initially presented on a non- rebreather and then transition to high-flow and eventually weaned to an OxyMask. Labs were significant for WBC 3.5, H&H 11.1/34.3, platelets 151, lactic acid 4.1 with repeat 3.3 and 3.3, CRP 1.20, albumin 3.0, procalcitonin 3.51. UA negative for UTI. Nasal screen negative for MRSA, S aureus. Patient tested negative for COVID, influenza type a and B, and RSV. Strep pneumonia and Legionella pneumoniae results pending. CXR showed patchy airspace disease centered in the right mid lung most concerning for infiltrate. Follow-up radiographs recommended. EKG demonstrated sinus tachycardia of 124 ST depressions in anterior leads and ST and T-wave abnormalities in inferior leads. Pt was treated with IVF, acetaminophen, Zosyn, albumin, Solu-Medrol, and vancomycin. Pt will be admitted to the hospital for treatment and further evaluation of severe sepsis setting of community-acquired pneumonia. Review of Systems 2 Review of Systems: Unable to obtain due to patient's mentation FOR[facility]LY [facility], [facility] Medical History Dysphagia Pica Seizures BPH (benign prostatic hyperplasia) Dysphagia Pneumonia Mentally challenged Developmental non-verbal disorder Autism Hydrocele Chronic renal disease Hyperlipemia Anemia Hypertension Hiatal hernia GERD (gastroesophageal reflux disease) OCD (obsessive compulsive disorder) Bipolar 1 disorder Surgical History History of colectomy H/O exploratory laparotomy Social History Household Members: Unknown / Unable to assess Household Members Other:: retirement Housing: Assisted Living Facility Housing Other:: retirement Do you presently have visiting nurse or other home services: No Unable to assess alcohol history related to: Unable to respond Alcohol intake: never Patient Tobacco Use Status: Never used Tobacco Smoked in Last 30 Days: No Use of substances other than those prescribed or required for medical reasons: Unable to respond Currently Displaying Signs/Symptoms of Drug Intoxication Withdrawal: No Advance Directives: Yes Advance Directives on File: Yes Advance Directives Date on File: 12/24/21 Nutrition Risks: Receiving home tube feeding or CPN service: No Current occupational status: disabled Meds Allergies Allergy/AdvReac Type Severity Reaction Status Date / Time haloperidol [From HALDOL] AdvReac Unknown UNKNOWN Verified 06/20/22 09:58 metoclopramide [From REGLAN] AdvReac Unknown UNKNOWN Verified 06/20/22 09:58 Active Medications: Current Medications Lactated Ringer's (Lr) 1,000 mls @ 100 mls/hr IVCONT .Q10H RODOLFO Last Admin: 11/10/22 11:24 Dose: 100 mls/hr Pharmacy Consult (Consult Rx Vancomycin Dosing) 1 each MISCELLANE DAILY PRN PRN Reason: Consult order Home Medications Medication Instructions Recorded Confirmed Last Taken Type bacitracin zinc 500 unit/gram 1 appl topical BID PRN Wound Care 12/24/21 11/10/22 Unknown History topical ointment clonazepam 0.5 mg tablet 0.5 mg feeding tube DAILY PRN 11/10/22 11/10/22 Unknown History Agitation docusate sodium 60 mg/15 mL oral 100 mg feeding tube BEDTIME 11/10/22 11/10/22 Unknown History syrup omeprazole 20 mg capsule,delayed 40 mg feeding tube DAILY@0630 11/10/22 11/10/22 Unknown History release wheat dextrin 3 gram/3.5 gram oral 1 packet PO BID@0800,1600 11/10/22 11/10/22 Unknown History powder (Best Fiber) Physical Exam 2 Vital Signs and Narrative: Vital Signs: Last Vital Signs Temp 98.8 F 11/10/22 15:07 Pulse 85 11/10/22 16:53 Resp 20 11/10/22 16:53 BP 107/63 11/10/22 16:53 Pulse Ox 95 11/10/22 16:53 O2 Del Method Oxymask 11/10/22 16:53 O2 Flow Rate 7 11/10/22 16:53 Oxygen Flow Rate 15 11/10/22 06:49 BMI result Body Mass Index 25.3 General: Alert, awake, nonverbal, not following commands, no acute distress Resp: Course break sounds in RLL CVS: S1, S2, RRR GI: +BS, NT, no distention Skin: No rash Neuro: Cranial nerves II-XII grossly intact bilaterally. Motor grossly intact bilaterally Extremities: No edema Results Labs 11/11/22 07:21 11/11/22 07:21 Labs: Laboratory Results - last 24 hr 11/10/22 11/10/22 11/10/22 07:26 07:43 07:44 MCV 98.8 H MCH 32.0 MCHC 32.4 RDW 14.1 Plt Count 151 L D MPV 9.9 Immature Gran % (Auto) 0.3 Neut % (Auto) 83.6 H Lymph % (Auto) 10.6 L Sebastian % (Auto) 4.9 Eos % (Auto) 0.3 Baso % (Auto) 0.3 Lymph # (Auto) 0.4 L Sebastian # (Auto) 0.2 Eos # (Auto) 0.0 Baso # (Auto) 0.0 Abs Immat Gran (auto) 0.01 Absolute Neuts (auto) 2.9 Absolute Nucleated RBC 0.000 Nucleated RBC % (auto) 0.0 VBG pH VBG pCO2 VBG pO2 VBG HCO3 VBG O2 Saturation VBG Base Excess Anion Gap 14 Estim Creat Clear Calc 53.2 Estimated GFR > 60 Random Glucose 90 Lactic Acid 4.1 H* Lactic Acid F/U @ 2Hr Lactic Acid F/U @ 4Hr Calcium 8.9 Magnesium 1.7 Total Bilirubin 0.3 Direct Bilirubin 0.1 AST 26 ALT 11 Alkaline Phosphatase 58 C-Reactive Protein 1.20 H Total Protein 6.5 Albumin 3.0 L Procalcitonin 3.51 Urine Color Urine Appearance Urine pH Ur Specific [place] Urine Protein Urine Glucose (UA) Urine Ketones Urine Blood Urine Nitrite Ur Leukocyte Esterase Urine RBC Urine WBC Ur Squamous Epith Cells Urine Bacteria Hyaline Casts Nasal Screen MRSA (PCR) Nasal S. aureus Screen Nasal MRSA/S.aureus Interp Influenza Type A (PCR) NEGATIVE Influenza Type B (PCR) NEGATIVE RSV RNA Qual (PCR) NEGATIVE SARS-CoV-2 RNA (RT-PCR) NEGATIVE 11/10/22 11/10/22 11/10/22 07:49 07:55 08:36 MCV MCH MCHC RDW Plt Count MPV Immature Gran % (Auto) Neut % (Auto) Lymph % (Auto) Sebastian % (Auto) Eos % (Auto) Baso % (Auto) Lymph # (Auto) Sebastian # (Auto) Eos # (Auto) Baso # (Auto) Abs Immat Gran (auto) Absolute Neuts (auto) Absolute Nucleated RBC Nucleated RBC % (auto) VBG pH 7.40 VBG pCO2 50 VBG pO2 38 VBG HCO3 32 H VBG O2 Saturation 57.0 VBG Base Excess 6.3 Anion Gap Estim Creat Clear Calc Estimated GFR Random Glucose Lactic Acid Lactic Acid F/U @ 2Hr Lactic Acid F/U @ 4Hr Calcium Magnesium Total Bilirubin Direct Bilirubin AST ALT Alkaline Phosphatase C-Reactive Protein Total Protein Albumin Procalcitonin Urine Color Yellow Urine Appearance Clear Urine pH 7.5 Ur Specific [place] 1.015 Urine Protein Negative Urine Glucose (UA) Negative Urine Ketones Negative Urine Blood Negative Urine Nitrite Negative Ur Leukocyte Esterase Trace H Urine RBC 0-2 Urine WBC 11-20 H Ur Squamous Epith Cells 0-2 Urine Bacteria None Seen Hyaline Casts 0-2 Nasal Screen MRSA (PCR) NEGATIVE Nasal S. aureus Screen NEGATIVE Nasal MRSA/S.aureus Interp SEE NOTE Influenza Type A (PCR) Influenza Type B (PCR) RSV RNA Qual (PCR) SARS-CoV-2 RNA (RT-PCR) 11/10/22 11/10/22 11:15 15:01 MCV MCH MCHC RDW Plt Count MPV Immature Gran % (Auto) Neut % (Auto) Lymph % (Auto) Sebastian % (Auto) Eos % (Auto) Baso % (Auto) Lymph # (Auto) Sebastian # (Auto) Eos # (Auto) Baso # (Auto) Abs Immat Gran (auto) Absolute Neuts (auto) Absolute Nucleated RBC Nucleated RBC % (auto) VBG pH VBG pCO2 VBG pO2 VBG HCO3 VBG O2 Saturation VBG Base Excess Anion Gap Estim Creat Clear Calc Estimated GFR Random Glucose Lactic Acid Lactic Acid F/U @ 2Hr 3.3 H* Lactic Acid F/U @ 4Hr 3.3 H* Calcium Magnesium Total Bilirubin Direct Bilirubin AST ALT Alkaline Phosphatase C-Reactive Protein Total Protein Albumin Procalcitonin Urine Color Urine Appearance Urine pH Ur Specific [place] Urine Protein Urine Glucose (UA) Urine Ketones Urine Blood Urine Nitrite Ur Leukocyte Esterase Urine RBC Urine WBC Ur Squamous Epith Cells Urine Bacteria Hyaline Casts Nasal Screen MRSA (PCR) Nasal S. aureus Screen Nasal MRSA/S.aureus Interp Influenza Type A (PCR) Influenza Type B (PCR) RSV RNA Qual (PCR) SARS-CoV-2 RNA (RT-PCR) Imaging Radiologist's Impressions: Impressions Chest X-Ray 11/10/22 08:06 IMPRESSION: Patchy airspace disease centered in the right midlung most concerning for infiltrate. A similar but slightly less prominent picture was noted on January 15, 2022 x-ray. Follow-up radiographs are recommended status post treatment to ensure complete resolution. Assessment and Plan (1) Severe sepsis: Status: Acute (2) Acute respiratory failure with hypoxia: Status: Acute (3) Pneumonia: Qualifiers: Laterality: right Lung location: unspecified part of lung Pneumonia type: aspiration pneumonia Aspiration pneumonia type: unspecified Qualified Code(s): J69.0 - Pneumonitis due to inhalation of food and vomit Status: Acute Plan Pt is a 67-year-old male with a PMH significant for?autism, intellectual disability, OCD, bipolar disorder, seizure disorder, dysphagia, hypertension, hep B carrier, chronic constipation, nephrogenic diabetes insipidus, PICA, chronic normocytic anemia, CKD stage III she GERD, and recurrent aspiration pneumonia who presents to the ED from a retirement for evaluation of fever. Pt will be admitted to the hospital for treatment and further evaluation of severe sepsis setting of community-acquired pneumonia. Acute hypoxic respiratory failure in the setting of pneumonia, likely aspiration Patient setting as low as 82% on RA, placed on non-rebreather, high-flow, eventually weaned to OxyMask CXR suspicious for infiltrate in right mid lung Will cover empirically with broad spectrum antibiotics: Vanc and Zosyn Duonebs prn Titrate supplemental O2 >92, wean as tolerated Monitor respiratory status Monitor on telemetry Follow cultures Severe sepsis Patient with pneumonia, WBCs <4, fever, tachycardia, tachypnea, hypotension, lactic acid >4 Given sepsis IVF bolus in ED Covered with broad-spectrum antibiotics: Vanc and Zosyn With monitor on telemetry Seizure disorder Continue valproic acid Mood disorder Continue citalopram, olanzapine GERD Continue PPI Diet/nutrition Patient patient with PEG tube Last nutrition consult suggested Jevity 1.50 at max goal rate of 70 mL/hr continuous with 120 mL free fluid flushes q.6 hours Given low patient's history of chronic aspiration pneumonia suggest continuous, not bolus,tube feeding Full Code Attending:?Dr. Knox DVT Prophylaxis: Lovenox Pt will require a hospitalization of at least two nights for treatment of?severe sepsis in the setting likely aspiration pneumonia with close monitoring, IVF, and IV antibiotics. Time Spent With Patient Time: Total time managing care of this patient today ____ minutes. Quality Stroke Does the patient have a stroke diagnosis?: No VTE Prior VTE?: No VTE Risk Level:: Medical - moderate - high VTE Device Contraindication: Treatment Not Indicated VTE Drug Contraindication: N/A - Med Ordered
--- NOTE | 2022-11-10 17:27 | PC.NURSE ---
Alert, nsr on monitor, afebrile, [place] cath draining clear yellow urine. no s/sof any pain or discomfort. Fluids running per order. 94% on 8 liters via oxy mask
[2022-11-10] MEDS: Enoxaparin Sodium 40 MG/0.4 ML SYRINGE SUBCUT (18:03)
--- NOTE | 2022-11-10 18:17 | PHA.PROG ---
Admission Date/Time: November 10, 2022 17:50 Indication: Respiratory Weight in k kg Adjusted body weight in Kg: [place] body weight in Kg: Obesity Dosing Indication % IBW: Serum Creatinine - Last 168 Hours 11/10/22 07:44 Creatinine 1.17 Estimated CrCl and GFR - Last 168 Hours 11/10/22 07:44 Estim Creat Clear Calc 53.2 Estimated GFR > 60 Vancomycin Loading Dose: 1500mg x 1 Current Vancomycin Dosing Regimen: 1250mg Q24H Vancomycin Monitoring using AUC goal of 400 - 600 range with trough as surrogate marker: 477 mg/L Date and Time for next Vancomycin Level to be drawn: 11/13/22 @0900 Pharmacist Comments on Vancomycin Plan: Using modified Goti model. Predicted trough of 13.8 mg/L. Will continue to monitor renal function and adjust accordingly Vancomycin dosing will take advantage of [employer] as a clinical decision support tool that uses Bayesian modeling to calculate individual patient's pharmacokinetic parameters and forecast the patient's drug concentration time course with the target goal AUC 24 range of 400 - 600 mg/L/hr.
--- NOTE | 2022-11-10 19:08 | PC.NURSE ---
assumed care of pt, pt vitals wnl, comfortable looking, call ventura in reach and bed in lowest position
--- NOTE | 2022-11-10 19:32 | PC.NURSE ---
called for report, they will call back when RN is ready
--- NOTE | 2022-11-10 19:37 | PC.NURSE ---
report given to floor RN
[2022-11-10] MEDS: OLANZapine 10 MG TABLET 20 MG G-TUBE (20:49)
[2022-11-10] MEDS: polyethylene glycoL 3350 17 GM POWD.PACK G-TUBE (20:49)
[2022-11-10] MEDS: Docusate Sodium 100 MG/10 ML LIQUID G-TUBE (20:50)
[2022-11-10] MEDS: Albuterol/Iprat 2.5/0.5MG 3 ML AMPUL.NEB INHALE (20:57)
[2022-11-11] VITALS (7 sets, daily range): BP systolic 98–121; BP diastolic 57–64; PULSE 87–102; RESP 16–20; TEMP 36.8–37.7; O2SAT 91–98
[2022-11-11] MEDS: Piperacillin Sodium/Tazobactam 4.5 GM in 0.9 % Sodium Chloride 100 ML IV ×3 (06:31→17:03)
[2022-11-11] MEDS: Albuterol/Iprat 2.5/0.5MG 3 ML AMPUL.NEB INHALE ×3 (07:46→19:16)
[2022-11-11 08:24] LABS: Mean Corpuscular HGB Conc 32.3 g/dl (31.0-36.0); PLT CLUMP 1
[2022-11-11 08:25] LABS: Hematocrit 29.1 % (42.0-52.0); Hemoglobin 9.4 g/dl (14.0-18.0); Mean Corpuscular Hemoglobin 31.8 pg (27.0-33.0); Mean Corpuscular Volume 98.3 fL (80.0-98.0); Mean Platelet Volume 10.5 fL (9.4-12.4); Red Blood Count 2.96 X10*6/uL (4.60-5.80); Red Cell Distribution Width 14.5 % (11.0-16.0)
[2022-11-11 08:27] LABS: Platelet Count 121 X10*3/uL (160-400); White Blood Count 8.8 X10*3/uL (4.8-10.8)
[2022-11-11 08:35] LABS: Anion Gap 16 (12-20); Blood Urea Nitrogen 22 mg/dL (9-16); Calcium 8.9 mg/dL (8.4-10.2); Carbon Dioxide 22 mmol/L (22-29); Chloride 113 mmol/L (96-108); Creatinine Clr Calc Pharmacy 64.2; Estimated Glomerular Filt Rate > 60; Glucose Random 63 mg/dL (60-115); Potassium 3.9 mmol/L (3.3-5.1); Sodium 147 mmol/L (135-145)
[2022-11-11 08:40] LABS: Creatinine Clr Calc Pharmacy 61.7; Estimated Glomerular Filt Rate > 60
--- NOTE | 2022-11-11 09:04 | HE.PHANOTE ---
Vancomycin dosing Patient SCr had slightly improved. Patient weight was also adjust. Current dose will be subtherapeutic. New dose vancomycin 750 mg Q12H scheduled to start 11/11 @ 1000. New expeced AUC 470 with a trough of 15.4. Shruthi Mack, PharmD
--- NOTE | 2022-11-11 09:58 | MHC.CM.PN ---
IMM 11/11/22 DELIVERED TO PT'S COGUARDIAN KHURRAM [phone], PER DISCUSSION IMM TO BE SENT VIA CERTIFIED MAIL. KHURRAM REPORTS PT W/DEVELOPMENTAL DISABILITY, NONVERBAL AT BASELINE RESIDES AT [facility], IS GAIT BELT AND 2 ASSIST FOR AMBULATION AND W/C, PLAN WILL BE FOR PT TO RETURN TO WHEN MEDICALLY CLEARED. CM CONTACTED AND NURSE SIM [phone] REPORTED SHE WILL BE CONTACT FOR WHEN PT IS READY FOR D/C. SIM REPORTS NEW RECTIFICATION PRINTER IS VALERIA RAMIREZ. SIM ALSO REPORTS PT HAS HAD NO HOSPITALIZATIONS SINCE ADMISSION LAST DECEMBER WHEN [facility] WAS PLACED AND THEY HAVE BEEN VERY HAPPY WITH PT'S IMPROVEMENT HE HAD MULTIPLE HOSPITALIZATIONS PRIOR TO , ANTIC STAFF WILL TRANSPORT.
[2022-11-11] MEDS: Loratadine 10 MG TABLET G-TUBE (10:00)
[2022-11-11] MEDS: polyethylene glycoL 3350 17 GM POWD.PACK G-TUBE ×2 (10:00→23:17)
[2022-11-11] MEDS: OLANZapine 10 MG TABLET G-TUBE (10:00)
[2022-11-11] MEDS: Escitalopram Oxalate 10 MG TABLET 30 MG G-TUBE (10:00)
[2022-11-11] MEDS: vancomycin HCL 750 MG in 0.9 % Sodium Chloride 250 ML 265 MG IV ×2 (10:01→23:17)
[2022-11-11] MEDS: Lactated Ringers 1,000 ML 100 ML IVCONT ×2 (10:02→15:53)
[2022-11-11] MEDS: 0.9 % Sodium Chloride Flush 3 ML SYRINGE IVFLUSH ×3 (10:02→23:26)
--- NOTE | 2022-11-11 12:38 | P.PNIM_ITS ---
Subjective Subjective Date of Service: 11/11/22 Interval History: Seen and evaluated this morning Looks comfortable On 9L O2 To start tube feed Review of Systems Unable to obtain due to patient's mentation Physical Exam 2 Vital Signs: Vital Signs: Last Vital Signs Temp 99.8 F 11/11/22 11:40 Pulse 100 11/11/22 11:40 Resp 20 11/11/22 11:40 BP 112/57 L 11/11/22 11:40 Pulse Ox 98 11/11/22 11:40 O2 Del Method Oxymask 11/11/22 11:40 O2 Flow Rate 9 11/11/22 11:40 Oxygen Flow Rate 15 11/10/22 06:49 BMI result Body Mass Index 26.7 Const: Other: Constitutional : Awake, frail looking Neck : Normal inspection, Supple Cardiovascular : RRR, no JVP, +1 lower extremity edema Respiratory : fair bilateral air entry, basal fine crackles Gastrointestinal: soft, lax, Normal bowel sounds, Non tender Skin : Warm, Dry Neurological : Alert, non verbal, moving extremities Objective Data Active Medications Acetaminophen (Acetaminophen 325 Mg Tablet) 650 mg G-TUBE Q6H PRN PRN Reason: Pain, Mild (Pain Scale 1-3) Albuterol/Ipratropium (Albuterol/Iprat 2.5/0.5mg 3 Ml Ampul.Neb) 3 ml INHALE RQ4H WHILE AWAKE REPLACED BY [facility] Last Admin: 11/11/22 11:40 Dose: 3 ml Documented By: ZAFAR Clonazepam (Clonazepam 0.5 Mg Tablet) 0.5 mg G-TUBE DAILY PRN PRN Reason: Agitation Docusate Sodium (Docusate Sodium 100 Mg/10 Ml Liquid) 100 mg G-TUBE BEDTIME REPLACED BY [facility] Last Admin: 11/10/22 20:50 Dose: 100 mg Documented By: KATHY Enoxaparin Sodium (Enoxaparin Sodium 40 Mg/0.4 Ml Syringe) 40 mg SUBCUT Q24H REPLACED BY [facility] Last Admin: 11/10/22 18:03 Dose: 40 mg Documented By: YAAKOV Escitalopram Oxalate (Escitalopram Oxalate 10 Mg Tablet) 30 mg G-TUBE DAILY REPLACED BY [facility] Last Admin: 11/11/22 10:00 Dose: 30 mg Documented By: GARRET Guaifenesin/Dextromethorphan (Guaifenesin Dm 100/10/5 Ml 5 Ml Syrup) 10 ml G- TUBE Q6H PRN PRN Reason: Cough Lactated Ringer's (Lr) 1,000 mls @ 100 mls/hr IVCONT .Q10H REPLACED BY [facility] Last Admin: 11/11/22 10:02 Dose: 100 mls/hr Documented By: GARRET Piperacillin Sod/Tazobactam (Sod 4.5 gm/ Sodium Chloride) 100 mls @ 200 mls/hr IV Q6H REPLACED BY [facility] Last Admin: 11/11/22 12:25 Dose: 200 mls/hr Documented By: GARRET Vancomycin HCl 750 mg/ Sodium (Chloride) 265 mls @ 265 mls/hr IV Q12H REPLACED BY [facility] Last Infusion: 11/11/22 11:39 Dose: Infused Documented By: GARRET Loratadine (Loratadine 10 Mg Tablet) 10 mg G-TUBE DAILY REPLACED BY [facility] Last Admin: 11/11/22 10:00 Dose: 10 mg Documented By: GARRET Magnesium Hydroxide (Milk Of Magnesia 30 Ml Oral.Susp) 30 ml G-TUBE DAILY PRN PRN Reason: Constipation Olanzapine (Olanzapine 10 Mg Tablet) 10 mg G-TUBE DAILY REPLACED BY [facility] Last Admin: 11/11/22 10:00 Dose: 10 mg Documented By: GARRET Olanzapine (Olanzapine 10 Mg Tablet) 20 mg G-TUBE BEDTIME REPLACED BY [facility] Last Admin: 11/10/22 20:49 Dose: 20 mg Documented By: KATHY Ondansetron HCl (Ondansetron Hcl 4 Mg/2 Ml Vial) 4 mg IVPUSH Q8H PRN PRN Reason: Nausea and Vomiting Pharmacy Consult (Consult Rx Vancomycin Dosing) 1 each MISCELLANE DAILY PRN PRN Reason: Consult order Polyethylene Glycol (Polyethylene Glycol 3350 17 Gm Powd.Pack) 17 gm G-TUBE BID REPLACED BY [facility] Last Admin: 11/11/22 10:00 Dose: 17 gm Documented By: GARRET Sodium Chloride (0.9 % Sodium Chloride Flush 3 Ml Syringe) 3 ml IVFLUSH QSHIFT REPLACED BY [facility] Last Admin: 11/11/22 10:02 Dose: 3 ml Documented By: GARRET Valproic Acid (Valproic Acid (As Sodium Salt) 250 Mg/5 Ml Solution) 1,000 mg G- TUBE BID REPLACED BY [facility] Last Admin: 11/11/22 10:00 Dose: 1,000 mg Documented By: GARRET Labs 11/11/22 07:21 11/11/22 07:21 Labs: Laboratory Results - last 24 hr 11/10/22 11/10/22 11/11/22 07:55 15:01 07:21 MCV 98.3 H MCH 31.8 MCHC 32.3 RDW 14.5 Plt Count 121 L MPV 10.5 Absolute Nucleated RBC 0.000 Nucleated RBC % (auto) 0.0 Anion Gap 16 Estim Creat Clear Calc 61.7 Estimated GFR Random Glucose Lactic Acid F/U @ 4Hr 3.3 H* Calcium Nasal Screen MRSA (PCR) NEGATIVE Nasal S. aureus Screen NEGATIVE Nasal MRSA/S.aureus Interp SEE NOTE 11/11/22 11/11/22 07:21 07:21 MCV MCH MCHC RDW Plt Count MPV Absolute Nucleated RBC Nucleated RBC % (auto) Anion Gap Estim Creat Clear Calc 64.2 Estimated GFR > 60 > 60 Random Glucose 63 Lactic Acid F/U @ 4Hr Calcium 8.9 Nasal Screen MRSA (PCR) Nasal S. aureus Screen Nasal MRSA/S.aureus Interp Microbiology Microbiology Results: Microbiology 11/10/22 Unknown Urine Culture - Final Urine clean catch - Urine davis top No growth. 11/10/22 07:55 Blood Culture - Preliminary Blood - Arterial No growth after 24 hours. 11/10/22 07:43 Blood Culture - Preliminary Blood - Arterial No growth after 24 hours. Assessment and Plan (1) Severe sepsis: Status: Acute (2) Acute respiratory failure with hypoxia: Status: Acute (3) Pneumonia: Status: Acute Plan Pt is a 67-year-old male with a PMH significant for?autism, intellectual disability, OCD, bipolar disorder, seizure disorder, dysphagia, hypertension, hep B carrier, chronic constipation, nephrogenic diabetes insipidus, PICA, chronic normocytic anemia, CKD stage III she GERD, and recurrent aspiration pneumonia who presents to the ED from a fpc for evaluation of fever. Pt will be admitted to the hospital for treatment and further evaluation of severe sepsis setting of community-acquired pneumonia. Acute hypoxic respiratory failure in the setting of pneumonia, likely aspiration Pending cultures broad spectrum antibiotics: Vanc and Zosyn Duonebs prn wean O2 as tolerated Aspiration precautions question Seizure disorder Continue valproic acid Mood disorder Continue citalopram, olanzapine GERD Continue PPI Diet/nutrition Patient patient with PEG tube Jevity 1.50 at max goal rate of 70 mL/hr continuous with 120 mL free fluid flushes q.6 hours Full Code DVT Prophylaxis: Lovenox Pt will require a hospitalization overnight for treatment of?severe sepsis in the setting likely aspiration pneumonia with close monitoring, IVF, and IV antibiotics. Time Spent With Patient Time: Total time managing care of this patient today ____ minutes. Quality Stroke Does the patient have a stroke diagnosis?: No VTE Prior VTE?: No VTE Risk Level:: Medical - moderate - high VTE Device Contraindication: Treatment Not Indicated VTE Drug Contraindication: N/A - Med Ordered
[2022-11-11] MEDS: methylPREDNISolone Sod Succ 40 MG/ML VIAL IVPUSH (15:53)
--- NOTE | 2022-11-11 16:30 | PC.NURSE ---
Addendum entered by Stacy He RN 11/11/22 18:30: Residual checked at this time; no residual present. Tube feeding advanced to 40mls/hr per order. Original Note: Tube feeding diet started at 1630; pt started at 30 ml/hr on Jevity per order. Residual checked during this time; no residual present. Pt given 120 ml flush through NG tube per order. Tube feeding to be advanced every 2 hrs by 10 mls/hr with a max rate of 70mls per hr.
[2022-11-11] MEDS: Enoxaparin Sodium 40 MG/0.4 ML SYRINGE SUBCUT (17:03)
[2022-11-11] MEDS: OLANZapine 10 MG TABLET 20 MG G-TUBE (23:16)
[2022-11-11] MEDS: Docusate Sodium 100 MG/10 ML LIQUID G-TUBE (23:16)
[2022-11-12] VITALS (12 sets, daily range): BP systolic 111–143; BP diastolic 57–74; PULSE 90–103; RESP 16–24; TEMP 36.3–37.3; O2SAT 91–99; BMI 26.7
--- NOTE | 2022-11-12 01:45 | PC.NURSE ---
UNABLE TO GET NGT IN. PT FIGHTING AND RESISTANT, YELLING AND AGITATED WITH HR UP TO 170'S DESPITE ZYPREXA IVP AND HALDOL IVP. RESP THERAPIST UNABLE TO OBTAIN ABG. DR SANTOS AWARE OF THIS. NO MORE ATTEMPTS TO INSERT NGT. VBG/S ORDERED. PT CALM AT REST WITH HR 110'S-130. CARDIZEM CONTINUES AT 15 MG/HR. BP STABLE.
[2022-11-12] MEDS: Piperacillin Sodium/Tazobactam 4.5 GM in 0.9 % Sodium Chloride 100 ML IV ×3 (01:55→12:34)
[2022-11-12] MEDS: Lactated Ringers 1,000 ML 100 ML IVCONT (04:21)
[2022-11-12] MEDS: Albuterol/Iprat 2.5/0.5MG 3 ML AMPUL.NEB INHALE ×4 (07:52→19:46)
[2022-11-12 08:02] LABS: Anion Gap 14 (12-20); Blood Urea Nitrogen 22 mg/dL (9-16); Calcium 9.4 mg/dL (8.4-10.2); Carbon Dioxide 21 mmol/L (22-29); Chloride 116 mmol/L (96-108); Creatinine Clr Calc Pharmacy 75.1; Estimated Glomerular Filt Rate > 60; Glucose Random 112 mg/dL (60-115); Potassium 3.6 mmol/L (3.3-5.1); Sodium 147 mmol/L (135-145)
[2022-11-12] MEDS: Escitalopram Oxalate 10 MG TABLET 30 MG G-TUBE (08:41)
[2022-11-12] MEDS: methylPREDNISolone Sod Succ 40 MG/ML VIAL IVPUSH (08:41)
[2022-11-12] MEDS: 0.9 % Sodium Chloride Flush 3 ML SYRINGE IVFLUSH (08:41)
[2022-11-12] MEDS: OLANZapine 10 MG TABLET G-TUBE (08:41)
[2022-11-12] MEDS: Loratadine 10 MG TABLET G-TUBE (08:41)
[2022-11-12] MEDS: polyethylene glycoL 3350 17 GM POWD.PACK G-TUBE ×2 (08:43→22:25)
[2022-11-12 08:49] LABS: Hematocrit 28.3 % (42.0-52.0); Hemoglobin 9.4 g/dl (14.0-18.0); Mean Corpuscular HGB Conc 33.2 g/dl (31.0-36.0); Mean Corpuscular Hemoglobin 32.9 pg (27.0-33.0); Mean Platelet Volume 10.8 fL (9.4-12.4); Platelet Count 116 X10*3/uL (160-400); Red Blood Count 2.86 X10*6/uL (4.60-5.80); Red Cell Distribution Width 14.7 % (11.0-16.0); White Blood Count 16.2 X10*3/uL (4.8-10.8)
[2022-11-12 09:00] LABS: Vancomycin Trough 14.2 mcg/mL (10.0-20.0)
--- NOTE | 2022-11-12 09:17 | HE.PHANOTE ---
RE: [facility] CAME BACK, SCR IS IMPROVING, CONTINUE CURRENT DOSE, NEXT LEVEL IS DUE ON 11/13/22 AT 2000. NATASHA
--- NOTE | 2022-11-12 10:27 | P.CDIM_ITS ---
PROVIDER RESPONSE TEXT: To clarify, the appropriate diagnosis supported by the clinical indicators: Other (explain): New onset seizure with a Breakthrough QUERY TEXT: PHYSICIAN'S DOCUMENTATION REQUEST Date of Query: 11/12/2022 08:55 AM EDT Patient Name: Mingo Henriquez Admit Date: 11/10/2022 Dear Cora Knox, A review of the medical record indicates additional documentation may be needed. Please review below and update the documentation accordingly. Clinical Indicators: PN: Dx - Seizure disorder Continue Valproic acid If possible, please further clarify the control status and acuity of seizure if known: Well controlled please further specify acuity as With or Without status epilepticus Intractable please further specify acuity as With or Without status epilepticus Pharmacoresistant please further specify acuity as With or Without status epilepticus Poorly controlled please further specify acuity as With or Without status epilepticus Refractory please further specify acuity as With or Without status epilepticus Treatment resistant please further specify acuity as With or Without status epilepticus Other (explain)Clinically unable to determine (explain)Thank you, Tamia Quijano, CCS, CDIS Use of terms such as suspected, likely, concern for, or probable (associated with a specific diagnosi s that is being evaluated, monitored, or treated as if it exists) are acceptable and can be coded in the inpatient se tting, when documented at the time of discharge. Please use your independent medical judgment in providing your response. THIS QUERY IS PART OF THE PERMANENT MEDICAL RECORD
[2022-11-12] MEDS: vancomycin HCL 750 MG in 0.9 % Sodium Chloride 250 ML 265 MG IV (11:18)
--- NOTE | 2022-11-12 11:19 | MHC.CM.PN ---
CM RECEIVED A CALL FROM PTS RN, SOHA, REQUESTING AN UPDATE SHE WAS INFORMED OF INFORMATION RECEIVED AT ROUNDS SHE PROVIDED A DIRECT PHONE NUMBER OF [phone] FOR QUESTIONS/UPDATES/DC PLANNING
--- NOTE | 2022-11-12 15:17 | HO.PM.IMPN ---
Subjective Subjective Date of Service: 11/12/22 Interval History: Seen and evaluated this morning Looks comfortable Weaning down O2 supplement tolerating tube feed Review of Systems Unable to obtain due to patient's mentation Physical Exam Vital Signs: Vital Signs: Last Vital Signs Temp 98.2 F 11/12/22 11:36 Pulse 97 11/12/22 14:56 Resp 18 11/12/22 14:56 BP 143/74 H 11/12/22 11:36 Pulse Ox 94 11/12/22 11:36 O2 Del Method Nasal Cannula 11/12/22 11:36 O2 Flow Rate 2.5 11/12/22 11:36 Oxygen Flow Rate 15 11/10/22 06:49 BMI result Body Mass Index 26.7 Const: Other: Constitutional : Awake, frail looking Neck : Normal inspection, Supple Cardiovascular : RRR, no JVP, trace lower extremity edema Respiratory : fair bilateral air entry, basal fine crackles Gastrointestinal: soft, lax, Normal bowel sounds, Non tender Skin : Warm, Dry Neurological : Alert, non verbal, moving extremities Objective Data Active Medications Acetaminophen (Acetaminophen 325 Mg Tablet) 650 mg G-TUBE Q6H PRN PRN Reason: Pain, Mild (Pain Scale 1-3) Albuterol/Ipratropium (Albuterol/Iprat 2.5/0.5mg 3 Ml Ampul.Neb) 3 ml INHALE RQ4H WHILE AWAKE [facility] Last Admin: 11/12/22 14:53 Dose: 3 ml Documented By: KENIA Clonazepam (Clonazepam 0.5 Mg Tablet) 0.5 mg G-TUBE DAILY PRN PRN Reason: Agitation Docusate Sodium (Docusate Sodium 100 Mg/10 Ml Liquid) 100 mg G-TUBE BEDTIME [facility] Last Admin: 11/11/22 23:16 Dose: 100 mg Documented By: LANDON Enoxaparin Sodium (Enoxaparin Sodium 40 Mg/0.4 Ml Syringe) 40 mg SUBCUT Q24H [facility] Last Admin: 11/11/22 17:03 Dose: 40 mg Documented By: ROSANA Escitalopram Oxalate (Escitalopram Oxalate 10 Mg Tablet) 30 mg G-TUBE DAILY [facility] Last Admin: 11/12/22 08:41 Dose: 30 mg Documented By: BRODipti Guaifenesin/Dextromethorphan (Guaifenesin Dm 100/10/5 Ml 5 Ml Syrup) 10 ml G-TUBE Q6H PRN PRN Reason: Cough Piperacillin Sod/Tazobactam (Sod 4.5 gm/ Sodium Chloride) 100 mls @ 200 mls/hr IV Q6H [facility] Last Infusion: 11/12/22 13:14 Dose: Infused Documented By: MALU Vancomycin HCl 750 mg/ Sodium (Chloride) 265 mls @ 265 mls/hr IV Q12H [facility] Last Infusion: 11/12/22 12:36 Dose: Infused Documented By: MALU Loratadine (Loratadine 10 Mg Tablet) 10 mg G-TUBE DAILY [facility] Last Admin: 11/12/22 08:41 Dose: 10 mg Documented By: MALU Magnesium Hydroxide (Milk Of Magnesia 30 Ml Oral.Susp) 30 ml G-TUBE DAILY PRN PRN Reason: Constipation Methylprednisolone Sodium Succinate (Methylprednisolone Sod Succ 40 Mg/Ml Vial) 40 mg IVPUSH DAILY [facility] Last Admin: 11/12/22 08:41 Dose: 40 mg Documented By: MALU Olanzapine (Olanzapine 10 Mg Tablet) 10 mg G-TUBE DAILY [facility] Last Admin: 11/12/22 08:41 Dose: 10 mg Documented By: MALU Olanzapine (Olanzapine 10 Mg Tablet) 20 mg G-TUBE BEDTIME [facility] Last Admin: 11/11/22 23:16 Dose: 20 mg Documented By: LANDON Ondansetron HCl (Ondansetron Hcl 4 Mg/2 Ml Vial) 4 mg IVPUSH Q8H PRN PRN Reason: Nausea and Vomiting Pharmacy Consult (Consult Rx Vancomycin Dosing) 1 each MISCELLANE DAILY PRN PRN Reason: Consult order Polyethylene Glycol (Polyethylene Glycol 3350 17 Gm Powd.Pack) 17 gm G-TUBE BID [facility] Last Admin: 11/12/22 08:43 Dose: 17 gm Documented By: MALU Sodium Chloride (0.9 % Sodium Chloride Flush 3 Ml Syringe) 3 ml IVFLUSH QSHIFT [facility] Last Admin: 11/12/22 08:41 Dose: 3 ml Documented By: MALU Valproic Acid (Valproic Acid (As Sodium Salt) 250 Mg/5 Ml Solution) 1,000 mg G-TUBE BID [facility] Last Admin: 11/12/22 08:41 Dose: 1,000 mg Documented By: MALU Labs 11/12/22 08:23 11/12/22 07:11 Labs: Laboratory Results - last 24 hr 11/12/22 11/12/22 07:11 08:23 MCV 99.0 H MCH 32.9 MCHC 33.2 RDW 14.7 Plt Count 116 L MPV 10.8 Absolute Nucleated RBC 0.000 Nucleated RBC % (auto) 0.0 ESR Cancelled Anion Gap 14 Estim Creat Clear Calc 75.1 Estimated GFR > 60 Random Glucose 112 Calcium 9.4 Vancomycin Trough 14.2 Microbiology Microbiology Results: Microbiology 11/10/22 07:55 Blood Culture - Preliminary Blood - Arterial No growth after 48 hours. 11/10/22 07:43 Blood Culture - Preliminary Blood - Arterial No growth after 48 hours. 11/10/22 Unknown Urine Culture - Final Urine clean catch - Urine davis top No growth. Assessment and Plan (1) Severe sepsis: Status: Acute (2) Acute respiratory failure with hypoxia: Status: Acute (3) Pneumonia: Status: Acute Plan Pt is a 67-year-old male with a PMH significant for?autism, intellectual disability, OCD, bipolar disorder, seizure disorder, dysphagia, hypertension, hep B carrier, chronic constipation, nephrogenic diabetes insipidus, PICA, chronic normocytic anemia, CKD stage III she GERD, and recurrent aspiration pneumonia who [facility] for evaluation of fever. Pt will be admitted to the hospital for treatment and further evaluation of severe sepsis setting of community-acquired pneumonia. Acute hypoxic respiratory failure in the setting of pneumonia, likely aspiration negative cultures DC broad spectrum antibiotics: Vanc and Zosyn Start Azithro and CTX Duonebs prn wean O2 as tolerated Aspiration precautions Leukocytosis secondary to IV steroids question Seizure disorder Continue valproic acid Mood disorder Continue citalopram, olanzapine GERD Continue PPI Diet/nutrition Patient patient with PEG tube Jevity 1.50 at max goal rate of 70 mL/hr continuous with 120 mL free fluid flushes q.6 hours Full Code DVT Prophylaxis: Lovenox Pt will require a hospitalization overnight for treatment of?severe sepsis in the setting likely aspiration pneumonia with close monitoring, IVF, and IV antibiotics. Time Spent With Patient Time: Total time managing care of this patient today ____ minutes. Quality Stroke Does the patient have a stroke diagnosis?: No VTE Prior VTE?: No VTE Risk Level:: Medical - moderate - high VTE Device Contraindication: Treatment Not Indicated VTE Drug Contraindication: N/A - Med Ordered
[2022-11-12] MEDS: Azithromycin 500 MG in 0.9 % Sodium Chloride 250 ML 125 MG IV (16:35)
[2022-11-12] MEDS: Dextrose 5 % 1,000 ML 125 ML IVCONT (17:51)
[2022-11-12] MEDS: cefTRIAXone sodium 1 GM in 0.9 % Sodium Chloride 50 ML IV (19:45)
[2022-11-12] MEDS: Enoxaparin Sodium 40 MG/0.4 ML SYRINGE SUBCUT (19:46)
[2022-11-12] MEDS: Docusate Sodium 100 MG/10 ML LIQUID G-TUBE (22:24)
[2022-11-12] MEDS: OLANZapine 10 MG TABLET 20 MG G-TUBE (22:25)
[2022-11-13 04:00] VITALS: BP 140/84; PULSE 85; RESP 18; TEMP 37.2; O2SAT 94
[2022-11-13 07:13] LABS: Anion Gap 11 (12-20); Blood Urea Nitrogen 23 mg/dL (9-16); Calcium 9.6 mg/dL (8.4-10.2); Carbon Dioxide 24 mmol/L (22-29); Chloride 113 mmol/L (96-108); Creatinine Clr Calc Pharmacy 85.4; Estimated Glomerular Filt Rate > 60; Glucose Random 97 mg/dL (60-115); Sodium 145 mmol/L (135-145)
[2022-11-13 07:27] VITALS: BP 153/72; PULSE 84; RESP 16; TEMP 36.6; O2SAT 93
[2022-11-13] MEDS: Albuterol/Iprat 2.5/0.5MG 3 ML AMPUL.NEB INHALE ×3 (07:47→15:30)
[2022-11-13 07:49] VITALS: PULSE 84; RESP 16; O2SAT 95
[2022-11-13] MEDS: Potassium Chloride Packet 20 MEQ PACKET 40 MEQ G-TUBE (10:36)
[2022-11-13] MEDS: polyethylene glycoL 3350 17 GM POWD.PACK G-TUBE (10:36)
[2022-11-13] MEDS: 0.9 % Sodium Chloride Flush 3 ML SYRINGE IVFLUSH (10:37)
[2022-11-13] MEDS: OLANZapine 10 MG TABLET G-TUBE (10:37)
[2022-11-13] MEDS: Loratadine 10 MG TABLET G-TUBE (10:37)
[2022-11-13] MEDS: Escitalopram Oxalate 10 MG TABLET 30 MG G-TUBE (10:37)
[2022-11-13 10:58] VITALS: BP 147/73; PULSE 80; RESP 18; TEMP 36.6; O2SAT 92
--- NOTE | 2022-11-13 11:40 | PM.DS ---
DS: Providers Provider Date of Service: 11/13/22 Date of admission: 11/10/22 17:50 Primary care physician: Unknown Physician DS: Diagnosis Discharge Diagnosis (1) Severe sepsis: Status: Acute (2) Acute respiratory failure with hypoxia: Status: Acute (3) Pneumonia: Status: Acute DS: Summary Hospital Course Hospital Course: Admission note HPI Pt is a 67-year-old male with a PMH significant for?autism, intellectual disability, OCD, bipolar disorder, seizure disorder, dysphagia, hypertension, hep B carrier, chronic constipation, nephrogenic diabetes insipidus, PICA, chronic normocytic anemia, CKD stage III she GERD, and recurrent aspiration pneumonia who presents to the ED from a residential for evaluation of fever. Patient is nonverbal at baseline and thus incapable of providing HPI which is instead taken from chart and provider review. When EMS arrived they found the patient tachycardic into the 120s, tachypneic in the 30s, hypotensive at 90/40, and hypoxic as low as 82% on RA. Patient was placed on non-rebreather at 15L which improved saturation to 90s. Patient was brought to the emergency room and then transitioned to high-flow and eventually weaned to 10L on OxyMask. Patient was hypotensive in the emergency room and given sepsis bolus of 30 cc/kilogram and then placed on maintenance fluids. ICU was consulted but did not deem patient in need of ICU level of care. In the ED patient was febrile at 01:02 0.1, tachycardic to 124, tachypneic to 30, and hypotensive as low as 75/44. Patient initially presented on a non-rebreather and then transition to high-flow and eventually weaned to an OxyMask. Labs were significant for WBC 3.5, H&H 11.1/34.3, platelets 151, lactic acid 4.1 with repeat 3.3 and 3.3, CRP 1.20, albumin 3.0, procalcitonin 3.51. UA negative for UTI. Nasal screen negative for MRSA, S aureus. Patient tested negative for COVID, influenza type a and B, and RSV. Strep pneumonia and Legionella pneumoniae results pending. CXR showed patchy airspace disease centered in the right mid lung most concerning for infiltrate. Follow-up radiographs recommended. EKG demonstrated sinus tachycardia of 124 ST depressions in anterior leads and ST and T-wave abnormalities in inferior leads. Pt was treated with IVF, acetaminophen, Zosyn, albumin, Solu-Medrol, and vancomycin. Pt will be admitted to the hospital for treatment and further evaluation of severe sepsis setting of community-acquired pneumonia. Hospital course Acute hypoxic respiratory failure in the setting of sepsis from aspiration pneumonia based on images findings. started on broad spectrum antibiotics as blood cultures turned out negative then changed to Azithromycin and Ceftriaxone. weaned down O2 to room air at the day of discharge. started tube feed with good tolerance, kept on aspiration precautions and head elevation. to finish 10 days of antibiotics. Leukocytosis developed after admission secondary to IV steroids not from sepsis. Keep head elevated at 45 degrees all the time, make sure patient up when tube feed running Continue Antibiotic as prescribed Aspiration precautions Time Spent with Patient Time attestation: Total time managing care of this patient today ____ minutes. Discharge coordination time: Greater than 30 minutes Quality: Safe Use of Opioids Does Pt have an Active Cancer Diagnosis on the Problem List?: No Quality: Stroke Does the patient have a stroke diagnosis?: No Physical Exam Vital Signs: Vital Signs: Last Vital Signs Temp 97.9 F 11/13/22 10:58 Pulse 80 11/13/22 10:58 Resp 18 11/13/22 10:58 BP 147/73 H 11/13/22 10:58 Pulse Ox 92 11/13/22 10:58 O2 Del Method Room Air 11/13/22 10:58 O2 Flow Rate 1 11/13/22 07:27 Oxygen Flow Rate 15 11/10/22 06:49 BMI result Body Mass Index 26.7 Const: Other: Constitutional : Awake, frail looking Neck : Normal inspection, Supple Cardiovascular : RRR, no JVP, trace lower extremity edema Respiratory : fair bilateral air entry, basal fine crackles Gastrointestinal: soft, lax, Normal bowel sounds, Non tender, G-tube in place Skin : Warm, Dry Neurological : Alert, non verbal, moving extremities DS: Data Data Completed and Pending Completed studies during hospitalization [Text1]: Procedures Insertion of Feeding Device into Stomach, Percutaneous Approach (01/02/22) Labs on day of discharge: Laboratory Results - last 24 hr 11/13/22 06:01 Hold Purple Top SEE NOTE Sodium 145 Potassium 3.0 L Chloride 113 H Carbon Dioxide 24 Anion Gap 11 L BUN 23 H Creatinine 0.73 Estim Creat Clear Calc 85.4 Estimated GFR > 60 Random Glucose 97 Calcium 9.6 Preliminary micro results at discharge 11/10/22 07:55 Blood Culture - Preliminary Blood - Arterial No growth after 48 hours. 11/10/22 07:43 Blood Culture - Preliminary Blood - Arterial No growth after 48 hours. Imaging Chest x-ray: Radiologist's impression: ITS Impressions Chest X-Ray 11/10/22 08:06 IMPRESSION: Patchy airspace disease centered in the right midlung most concerning for infiltrate. A similar but slightly less prominent picture was noted on January 15, 2022 x-ray. Follow-up radiographs are recommended status post treatment to ensure complete resolution. Discharge Plan Discharge Anticipated Discharge Date/Time: 11/13/22 11:37 Patient Disposition: Xfer Other Discharge Diagnosis: Sepsis from aspiration pneumonia Referrals: [facility] [Other] - 1 Week Physician,Unknown J [Primary Care Provider] - 1 Week Discharge Medications: New amoxicillin-pot clavulanate 400-57 mg/5 mL suspension for reconstitution 10 ml PO BID Qty: 100 0RF Continued bacitracin zinc 500 unit/gram ointment 1 appl topical BID PRN (Reason: Wound Care) acetaminophen 325 mg tablet 650 mg feeding tube Q6H PRN (Reason: Pain) Qty: 60 0RF dextromethorphan-guaifenesin 10-100 mg/5 mL Liquid 10 ml feeding tube Q6H PRN (Reason: Cough) Qty: 500 0RF olanzapine 10 mg tablet 10 mg feeding tube DAILY Qty: 60 0RF citalopram 20 mg tablet 60 mg feeding tube DAILY Qty: 60 0RF magnesium hydroxide [Milk of Magnesia] 400 mg/5 mL suspension 30 ml feeding tube DAILY PRN (Reason: Constipation) Qty: 355 0RF valproic acid (as sodium salt) 250 mg/5 mL solution 1,000 mg feeding tube BID Qty: 473 0RF simethicone [Gas Relief (simethicone)] 40 mg/0.6 mL drops,suspension 40 mg feeding tube TID@0800,1600,2000 Qty: 30 0RF polyethylene glycol 3350 17 gram/dose powder 17 g feeding tube BID Qty: 510 0RF Rx Instructions: hold if more than 3 BM's in 1 day olanzapine 20 mg tablet 20 mg feeding tube BEDTIME Qty: 30 0RF loratadine 10 mg tablet 10 mg feeding tube DAILY Qty: 60 0RF clonazepam 0.5 mg tablet 0.5 mg feeding tube DAILY PRN (Reason: Agitation) omeprazole 20 mg capsule,delayed release(DR/EC) 40 mg feeding tube DAILY@0630 Rx Instructions: needs to be given with water juice or snack docusate sodium 60 mg/15 mL syrup 100 mg feeding tube BEDTIME Best Fiber 3 gram/3.5 gram powder 1 packet PO BID@0800,1600 Rx Instructions: mix into at least 4 oz water or juice before administering (DME) #18 MACKENZIE gastrostomy feeding #18 Vietnamese See Rx Instructions .Route .MEDSUPPLY Qty: 1 0RF Rx Instructions: Every 6 months Discharge Orders: Discharge Order (Routine); Ordered 11/13/22 Ordered By: Cora Knox Diet: Tube feed Activity on Discharge: As tolerated Stand Alone Forms: Patient Portal Discharge page Care Plan Goals: Read below Health Concerns: Read below Plan of Treatment: Read below Assessment: Keep head elevated at 45 degrees all the time, make sure patient up when tube feed running Continue Antibiotic as prescribed Aspiration precautions
--- NOTE | 2022-11-13 12:03 | MHC.CM.PN ---
Patient is medically cleared for dc today. [facility], via [facility]. CM left a detailed message for Guardian/Sherry @ [phone], informing her of the dc plan. Last IMM addressed on 11/11/2022. GLORIA coordinated Patient's dc with MEREDITH/RN/Charlene and Demi @ [phone].
[2022-11-13 12:14] VITALS: PULSE 80; RESP 18; O2SAT 91
--- NOTE | 2022-11-13 12:38 | P.CDIM_ITS ---
PROVIDER RESPONSE TEXT: To clarify, the appropriate diagnosis supported by the clinical indicators: Other: acute hyponatremia QUERY TEXT: PHYSICIAN'S DOCUMENTATION REQUEST Date of Query: 11/13/2022 08:31 AM EDT Patient Name: Mingo Henriquez Admit Date: 11/10/2022 Dear Cora Knox, A review of the medical record indicates additional documentation may be needed. Please review below and update the documentation accordingly. Clinical Indicators: LAB FINDINGS: 11/11 - sodium 147 H fluids Based on the above, is there a diagnosis that correlates with these lab findings: Hypernatremia resolved Labs indicate a diagnosis of (please specify) Other please specify Other (explain)Clinically unable to determine (explain)Thank you, Tamia Quijano, CCS, CDIS Use of terms such as suspected, likely, concern for, or probable (associated with a specific diagnosi s that is being evaluated, monitored, or treated as if it exists) are acceptable and can be coded in the inpatient se tting, when documented at the time of discharge. Please use your independent medical judgment in providing your response. THIS QUERY IS PART OF THE PERMANENT MEDICAL RECORD
[2022-11-13 15:34] VITALS: PULSE 83; RESP 20; O2SAT 91
[2022-11-14 21:57] LABS: Strep Pneumo Ag urine Not Detected (Not Detected)
[2022-11-16 02:38] LABS: Legionella Ag Urine Not Detected (Not Detected)
== END 2022-11-13 17:50 | disposition other institution (70) | DRG 871 ==
LOC: HO.ED 07:22 → HO.EDOVER 18:02 → HO.IMC 19:04
PROVIDERS: Physician Assistant; Admitting Provider Student in an Organized Health Care Education/Training Program; Emergency Provider Emergency Medicine Emergency Medical Services; Visit Provider Student in an Organized Health Care Education/Training Program
DX: A41.9 Sepsis, unspecified organism (principal); J69.0 Pneumonitis due to inhalation of food and vomit; J96.01 Acute respiratory failure with hypoxia; E87.0 Hyperosmolality and hypernatremia; F84.0 Autistic disorder; R65.20 Severe sepsis without septic shock; G40.909 Epilepsy, unspecified, not intractable, without status epilepticus; N18.30 Chronic kidney disease, stage 3 unspecified; K21.9 Gastro-esophageal reflux disease without esophagitis; Z93.1 Gastrostomy status; Z20.822 Contact with and (suspected) exposure to COVID-19; Z79.899 Other long term (current) drug therapy
CPT/HCPCS: 0241U; 36415; 71045; 80048; 80076; 80202; 81001; 82565; 82803; 83605; 83735; 84145; 84484; 85025; 85027; 85652; 86140; 87040; 87086; 87449; 87640; 87641; 87899; 93005; 99285; J0456; J0696; J1650; J2543; J2920; J3370; J3371; P9047

== ENCOUNTER → 2022-11-10 17:50 | Outpatient (BNV) | payer MEDICARE, MEDICAID, SELFPAY | PROVIDERS: Admitting Provider Student in an Organized Health Care Education/Training Program; Emergency Provider Emergency Medicine Emergency Medical Services; Visit Provider Student in an Organized Health Care Education/Training Program | DX: A41.9 Sepsis, unspecified organism (principal); R65.20 Severe sepsis without septic shock; J96.01 Acute respiratory failure with hypoxia; J69.0 Pneumonitis due to inhalation of food and vomit | CPT/HCPCS: 99223; 99233; 99239 ==

== ENCOUNTER 2022-11-14 08:16 | Inpatient (IN) | payer MEDICARE, MEDICAID, SELFPAY ==
[2022-11-14] VITALS (8 sets, daily range): BP systolic 115–143; BP diastolic 67–80; PULSE 78–90; RESP 13–19; TEMP 36–37.1; O2SAT 87–97; BMI 26.1
--- NOTE | ~2022-11-14 | XR_ITS ---
EXAMINATION: XR CHEST CLINICAL INFORMATION: Hypoxia COMPARISON: 11/10/2022 TECHNIQUE: Frontal view of the chest was obtained. FINDINGS: Heart size upper limits of normal. No evidence of CHF. Perihilar consolidation/infiltrate is present in the right lung, increased when compared to prior. No pleural effusions. No pneumothorax. There is gaseous distention of bowel beneath the hemidiaphragms. XR/XR chest 1V IMPRESSION: Increasing right perihilar consolidation/infiltrate.
--- NOTE | 2022-11-14 08:45 | ED_ITS ---
HPI - URI/Sore Throat General Chief Complaint: Upper Respiratory Symptoms Stated Complaint: WEAK,LOW SAT 87%,RECENT DX PNA PER EMS Time Seen by Provider: 11/14/22 08:40 Source: patient, EMS and old records reviewed Mode of arrival: EMS Limitations: other (nonverbal patient) History of Present Illness HPI Narrative: 67 yo male with history of autism, developmental delay, nonverbal at baseline, bipolar disorder, dysphagia s/p PEG 2021, hx ileus, bladder outlet obstruction, GERD, hx recurrent aspiration pneumonia, CKD III, HTN, HLD, OCD, seizures, who presents to the ER from his nursing home via EMS for evaluation of hypoxia. He was found to have SpO2 87% today and felt warm. Of note he was [place] [facility] [place] 2/2 PNA from 11/10-11/13. He was discharged on Augmentin. Patient is nonverbal and cannot offer any history. [facility] staff at the bedside could not provide any history. They denied he had a cough. MD elicited complaint: other (hypoxia, cough) Pertinent past history: pneumonia Onset (ago): unknown Treatments prior to arrival: other (oxygen) Related Data Home Medications Medication Instructions Recorded Confirmed bacitracin zinc 500 unit/gram 1 appl topical BID PRN Wound Care 12/24/21 11/10/22 topical ointment clonazepam 0.5 mg tablet 0.5 mg feeding tube DAILY PRN 11/10/22 11/10/22 Agitation docusate sodium 60 mg/15 mL oral 100 mg feeding tube BEDTIME 11/10/22 11/10/22 syrup omeprazole 20 mg capsule,delayed 40 mg feeding tube DAILY@0630 11/10/22 11/10/22 release wheat dextrin 3 gram/3.5 gram oral 1 packet PO BID@0800,1600 11/10/22 11/10/22 powder (Best Fiber) Previous Rx's Medication Instructions Recorded acetaminophen 325 mg tablet 650 mg (2 x 325 mg) feeding tube 01/16/22 Q6H PRN Pain #60 tabs citalopram 20 mg tablet 60 mg (3 x 20 mg) feeding tube 01/16/22 DAILY #60 tabs dextromethorphan-guaifenesin 10 10 ml feeding tube Q6H PRN Cough 01/16/22 mg-100 mg/5 mL oral liquid #500 mL loratadine 10 mg tablet 10 mg feeding tube DAILY #60 tabs 01/16/22 magnesium hydroxide 400 mg/5 mL 30 ml feeding tube DAILY PRN 01/16/22 oral suspension (Milk of Magnesia) Constipation #355 mL olanzapine 10 mg tablet 10 mg feeding tube DAILY #60 tabs 01/16/22 olanzapine 20 mg tablet 20 mg feeding tube BEDTIME #30 tabs 01/16/22 polyethylene glycol 3350 17 17 g feeding tube BID #510 grams 01/16/22 gram/dose oral powder simethicone 40 mg/0.6 mL oral 40 mg (0.6 mL) feeding tube 01/16/22 drops,suspension (Gas Relief TID@0800,1600,2000 #30 mL (simethicone)) valproic acid (as sodium salt) 250 1,000 mg (20 mL) feeding tube BID 01/16/22 mg/5 mL oral solution #473 mL #18 MACKENZIE gastrostomy feeding #1 ea 06/20/22 amoxicillin 400 mg-potassium 10 ml PO BID #100 mL 11/13/22 clavulanate 57 mg/5 mL oral suspension Allergies Allergy/AdvReac Type Severity Reaction Status Date / Time haloperidol [From HALDOL] AdvReac Unknown UNKNOWN Verified 06/20/22 09:58 metoclopramide [From REGLAN] AdvReac Unknown UNKNOWN Verified 06/20/22 09:58 Review of Systems 2 Review of Systems: Yes Unobtainable due to mental condition [facility] Past Medical History Medical History Dysphagia Pica Seizures BPH (benign prostatic hyperplasia) Dysphagia Pneumonia Mentally challenged Developmental non-verbal disorder Autism Hydrocele Chronic renal disease Hyperlipemia Anemia Hypertension Hiatal hernia GERD (gastroesophageal reflux disease) OCD (obsessive compulsive disorder) Bipolar 1 disorder Surgical History History of colectomy H/O exploratory laparotomy Social History Social History Household Members: Unknown / Unable to assess Household Members Other:: nursing home Housing: Assisted Living Facility Housing Other:: nursing home Do you presently have visiting nurse or other home services: No Unable to assess alcohol history related to: Unable to respond Alcohol intake: never Patient Tobacco Use Status: Never used Tobacco Smoked in Last 30 Days: No Use of substances other than those prescribed or required for medical reasons: No Advance Directives: Yes Advance Directives on File: Yes Advance Directives Date on File: 12/24/21 service: No Current occupational status: disabled Physical Exam 2 Vital Signs: Vital Signs: Last Vital Signs Temp 98.6 F 11/14/22 10:28 Pulse 83 11/14/22 08:36 Resp 19 11/14/22 08:36 Pulse Ox 90 L 11/14/22 09:00 O2 Del Method Room Air 11/14/22 09:00 Oxygen Flow Rate 3 11/14/22 08:39 BMI result Body Mass Index 26.1 Appearance: Alert, awake, No acute distress. Head: normocephalic, atraumatic. Eyes: Pupils equal, round and reactive to light. ENT: Pharynx normal. No tonsillar swelling or exudate. Neck: Normal inspection. Neck supple. CVS: Normal heart rate and rhythm. Pulses normal. Respiratory: No respiratory distress. Breath sounds diminished throughout right lung Abdomen: Soft and nontender. PEG in place +BS x4 Skin: Skin warm and dry. Normal skin color. Normal skin turgor. No rashes. Extremities: No lower extremity edema. No joint swelling. UE contracted. Neuro/psych: awake and alert, makes eye contact and tracks, nonverbal Medical Decision Making Medical Decision Making MDM Narrative: 67 yo male with history of autism, developmental delay, nonverbal at baseline, bipolar disorder, dysphagia s/p PEG 2021, hx ileus, bladder outlet obstruction, GERD, hx recurrent aspiration pneumonia, CKD III, HTN, HLD, OCD, seizures, who presents to the ER from his nursing home via EMS for evaluation of hypoxia. SpO2 87% at nursing home, 90% on RA here. SpO2 94% on 2L NC. Monitored on room air with SpO2 90%, congested cough intermittently. CXR with worsening infiltrates. will restart IV abx, continue supplemental O2 and admit for pulm toilet. ?G-J conversion Differential Diagnosis Differential Diagnoses: The differential diagnosis associated with the presentation includes aspiration pneumonia, CAP, bronchitis, Flu, COVID, other viral syndrome. doubt PE Admission/Observation Consideration of admission/observation: Escalation of care including admission/observation considered hypoxia Consult Healthcare Provider Management of the patient was discussed with: Hospitalist Dr. Jesin TT for admission Lab Data MDM Lab Attestation statement: I reviewed the patient's lab results. mild leukocytosis, procal still elevated 11/14/22 09:11 11/14/22 09:10 Labs: Lab Results 11/14/22 11/14/22 11/14/22 Range/Units 09:09 09:10 09:11 WBC 11.9 H (4.8-10.8) X10*3/uL RBC 3.44 L D (4.60-5.80) X10*6/uL Hgb 11.2 L (14.0-18.0) g/dl Hct 33.6 L (42.0-52.0) % MCV 97.7 (80.0-98.0) fL MCH 32.6 (27.0-33.0) pg MCHC 33.3 (31.0-36.0) g/dl RDW 14.9 (11.0-16.0) % Plt Count 168 D (160-400) X10*3/uL MPV 10.4 (9.4-12.4) fL Immature Gran % (Auto) 2.3 H (0.0-0.4) % Neut % (Auto) 78.1 H (45-73) % Lymph % (Auto) 12.4 L (20-40) % [place] % (Auto) 6.7 (2-11) % Eos % (Auto) 0.2 (0-4) % Baso % (Auto) 0.3 (0-2) % Lymph # (Auto) 1.5 (1.2-4.9) X10*3/uL Murray # (Auto) 0.8 (0.1-1.2) X10*3/uL Eos # (Auto) 0.0 (0.0-0.4) X10*3/uL Baso # (Auto) 0.0 (0.0-0.2) X10*3/uL Abs Immat Gran (auto) 0.27 H (0.00-0.03) X10*3/uL Absolute Neuts (auto) 9.3 H (2.0-8.3) x10*3/uL Absolute Nucleated RBC 0.050 H (0.0-0.012) X10*3/uL Nucleated RBC % (auto) 0.4 H (0.0-0.2) /100WBC VBG pH (7.32-7.43) VBG pCO2 mmHg VBG pO2 mmHg VBG HCO3 (22-26) mmol/L VBG O2 Saturation % VBG Base Excess mmol/L Sodium 145 (135-145) mmol/L Potassium 3.9 D (3.3-5.1) mmol/L Chloride 109 H (96-108) mmol/L Carbon Dioxide 26 (22-29) mmol/L Anion Gap 14 (12-20) BUN 27 H (9-16) mg/dL Creatinine 0.85 (0.5-1.4) mg/dL Estim Creat Clear Calc 70.6 Estimated GFR > 60 Random Glucose 67 (60-115) mg/dL Lactic Acid 1.3 (0.5-2.0) mmol/L Calcium 10.4 H D (8.4-10.2) mg/dL Magnesium 2.1 (1.6-2.6) mg/dL Total Bilirubin 0.3 (0.0-1.0) mg/dL Direct Bilirubin 0.1 (0.0-0.5) mg/dL AST 31 (5-37) U/L ALT 20 (0-40) U/L Alkaline Phosphatase 65 (39-117) U/L Total Protein 7.5 (6.5-8.0) g/dL Albumin 3.2 L (3.5-5.0) g/dL Procalcitonin 2.26 ng/mL Urine Color Urine Appearance Urine pH (5.0-9.0) Ur Specific [place] (1.005-1.025) Urine Protein (Neg-Trace) mg/dL Urine Glucose (UA) (Negative) mg/dL Urine Ketones (Negative) mg/dL Urine Blood (Negative) Urine Nitrite (Negative) Ur Leukocyte Esterase (Negative) 11/14/22 11/14/22 Range/Units 09:21 10:36 WBC (4.8-10.8) X10*3/uL RBC (4.60-5.80) X10*6/uL Hgb (14.0-18.0) g/dl Hct (42.0-52.0) % MCV (80.0-98.0) fL MCH (27.0-33.0) pg MCHC (31.0-36.0) g/dl RDW (11.0-16.0) % Plt Count (160-400) X10*3/uL MPV (9.4-12.4) fL Immature Gran % (Auto) (0.0-0.4) % Neut % (Auto) (45-73) % Lymph % (Auto) (20-40) % Murray % (Auto) (2-11) % Eos % (Auto) (0-4) % Baso % (Auto) (0-2) % Lymph # (Auto) (1.2-4.9) X10*3/uL Murray # (Auto) (0.1-1.2) X10*3/uL Eos # (Auto) (0.0-0.4) X10*3/uL Baso # (Auto) (0.0-0.2) X10*3/uL Abs Immat Gran (auto) (0.00-0.03) X10*3/uL Absolute Neuts (auto) (2.0-8.3) x10*3/uL Absolute Nucleated RBC (0.0-0.012) X10*3/uL Nucleated RBC % (auto) (0.0-0.2) /100WBC VBG pH 7.53 H (7.32-7.43) VBG pCO2 36 mmHg VBG pO2 51 mmHg VBG HCO3 31 H (22-26) mmol/L VBG O2 Saturation 83.0 % VBG Base Excess 8.4 mmol/L Sodium (135-145) mmol/L Potassium (3.3-5.1) mmol/L Chloride (96-108) mmol/L Carbon Dioxide (22-29) mmol/L Anion Gap (12-20) BUN (9-16) mg/dL Creatinine (0.5-1.4) mg/dL Estim Creat Clear Calc Estimated GFR Random Glucose (60-115) mg/dL Lactic Acid (0.5-2.0) mmol/L Calcium (8.4-10.2) mg/dL Magnesium (1.6-2.6) mg/dL Total Bilirubin (0.0-1.0) mg/dL Direct Bilirubin (0.0-0.5) mg/dL AST (5-37) U/L ALT (0-40) U/L Alkaline Phosphatase (39-117) U/L Total Protein (6.5-8.0) g/dL Albumin (3.5-5.0) g/dL Procalcitonin ng/mL Urine Color Yellow Urine Appearance Clear Urine pH 8.0 (5.0-9.0) Ur Specific [place] 1.010 (1.005-1.025) Urine Protein Negative (Neg-Trace) mg/dL Urine Glucose (UA) Negative (Negative) mg/dL Urine Ketones Negative (Negative) mg/dL Urine Blood Negative (Negative) Urine Nitrite Negative (Negative) Ur Leukocyte Esterase Negative (Negative) Independent Interpretation I performed an independent interpretation of an: Plain X-Ray Interpretation: cxr w/ dense right sided opacities c/w PNA Radiology Impression Discussion of test interpretation with radiology: I have reviewed the radiologist's reading. Radiologist Impression: EXAMINATION: XR CHEST CLINICAL INFORMATION: Hypoxia COMPARISON: 11/10/2022 TECHNIQUE: Frontal view of the chest was obtained. FINDINGS: Heart size upper limits of normal. No evidence of CHF. Perihilar consolidation/infiltrate is present in the right lung, increased when compared to prior. No pleural effusions. No pneumothorax. There is gaseous distention of bowel beneath the hemidiaphragms. XR/XR chest 1V IMPRESSION: Increasing right perihilar consolidation/infiltrate. External Record Review External record reviewed: Inpatient record, Outpatient record, Prior outpatient labs and Prior outpatient radiology Tests considered The following testing was considered but not selected: CT chest considered Prescription Management I considered prescription management with: Antibiotic Chronic Conditions Patient?s care impacted by: Other (dysphagia s/p PEG) Social Determinants Patient?s care significantly limited by Social Determinants of Health including: Other Social Determinant of Health Critical Care Time Critical Care Time Critical Care Time: Yes Total Critical Care Time: 36 Attestation: I have personally provided critical care time exclusive of time spent on separately billable procedures. Time includes review of lab data, radiology results, discussion with consultants, and monitoring for potential decompensation. Intervention performed as documented. Discharge Plan Discharge Clinical Impression: Hypoxia Pneumonia Qualifiers: Pneumonia type: due to unspecified organism Laterality: right Lung location: u nspecified part of lung Qualified Code(s): J18.9 - Pneumonia, unspecified organism Patient Disposition: Admitted As Inpatient
[2022-11-14 09:20] LABS: MANUAL DIFF FLAG NO
[2022-11-14 09:26] LABS: VBG Base Excess 8.4 mmol/L; VBG HCO3 31 mmol/L (22-26); VBG pCO2 36 mmHg; VBG pH 7.53 (7.32-7.43); VBG pO2 51 mmHg
[2022-11-14 09:27] LABS: Basophils Percent Auto 0.3 % (0-2); Eosinophils Percent Auto 0.2 % (0-4); Hematocrit 33.6 % (42.0-52.0); Hemoglobin 11.2 g/dl (14.0-18.0); Imm Gran Abs Auto 0.27 X10*3/uL (0.00-0.03); Imm Gran Pct Auto 2.3 % (0.0-0.4); Lymphocytes Absolute Auto 1.5 X10*3/uL (1.2-4.9); Lymphocytes Percent Auto 12.4 % (20-40); Mean Corpuscular HGB Conc 33.3 g/dl (31.0-36.0); Mean Corpuscular Hemoglobin 32.6 pg (27.0-33.0); Mean Corpuscular Volume 97.7 fL (80.0-98.0); Mean Platelet Volume 10.4 fL (9.4-12.4); Monocytes Absolute Auto 0.8 X10*3/uL (0.1-1.2); Monocytes Percent Auto 6.7 % (2-11); NRBC Pct Auto 0.4 /100WBC (0.0-0.2); Neutrophils Absolute Auto 9.3 x10*3/uL (2.0-8.3); Neutrophils Percent Auto 78.1 % (45-73); Platelet Count 168 X10*3/uL (160-400); Red Blood Count 3.44 X10*6/uL (4.60-5.80); Red Cell Distribution Width 14.9 % (11.0-16.0); White Blood Count 11.9 X10*3/uL (4.8-10.8)
[2022-11-14 09:29] LABS: Venous Blood Gas Refer to POC result
[2022-11-14 09:39] LABS: Lactic Acid 1.3 mmol/L (0.5-2.0)
[2022-11-14 10:47] LABS: Appearance Urine Clear; Color Urine Yellow; Glucose Urine UA Negative (Negative); Leukocyte Esterase Urine Negative (Negative); Nitrite Urine Negative (Negative); Urine Blood Negative (Negative); Urine Ketones Negative (Negative); Urine Protein Negative (Neg-Trace)
[2022-11-14 11:37] LABS: Alanine Aminotransferase 20 U/L (0-40); Albumin Level 3.2 g/dL (3.5-5.0); Alkaline Phosphatase 65 U/L (39-117); Anion Gap 14 (12-20); Aspartate Amino Transferase 31 U/L (5-37); Bilirubin Direct 0.1 mg/dL (0.0-0.5); Bilirubin Total 0.3 mg/dL (0.0-1.0); Blood Urea Nitrogen 27 mg/dL (9-16); Calcium 10.4 mg/dL (8.4-10.2); Carbon Dioxide 26 mmol/L (22-29); Chloride 109 mmol/L (96-108); Creatinine Clr Calc Pharmacy 70.6; Estimated Glomerular Filt Rate > 60; Glucose Random 67 mg/dL (60-115); Magnesium 2.1 mg/dL (1.6-2.6); Potassium 3.9 mmol/L (3.3-5.1); Sodium 145 mmol/L (135-145); Total Protein 7.5 g/dL (6.5-8.0)
[2022-11-14 11:51] LABS: Procalcitonin 2.26 ng/mL
[2022-11-14] MEDS: cefTRIAXone sodium 1 GM in 0.9 % Sodium Chloride 50 ML IV (12:06)
--- NOTE | 2022-11-14 12:29 | ECG_ITS ---
Test Reason : weakness Blood Pressure : / mmHG Vent. Rate : 080 BPM Atrial Rate : 080 BPM P-R Int : 130 ms QRS Dur : 078 ms QT Int : 396 ms P-R-T Axes : 039 010 013 degrees QTc Int : 456 ms Normal sinus rhythm Nonspecific ST abnormality Abnormal ECG When compared with ECG of 10-NOV-2022 06:50, Vent. rate has decreased BY 44 BPM T wave inversion no longer evident in Inferior leads ST less depressed in Anterior leads Referred By: Martha Del Rio Electronically Signed By:JEANNIE PRIETO
[2022-11-14] MEDS: Azithromycin 500 MG in 0.9 % Sodium Chloride 250 ML 125 MG IV (12:30)
--- NOTE | 2022-11-14 12:33 | PHA.MEDREC ---
Pharmacy Consult ? Medication Reconciliation Pharmacy has completed the medication reconciliation. Patient just discharged yesterday, 11/13. Utilized discharge summary. Shruthi Mack, AmberD
--- NOTE | 2022-11-14 13:15 | PM.IMHP ---
History of Present Illness Date of Service: 11/14/22 Attending physician on admission: Ron Jarvis Chief Complaint: Hypoxia Pt is a -year-old female with a PMH significant for?autism, intellectual disability, OCD, bipolar disorder, seizure disorder, dysphagia, hypertension, hep B carrier, chronic constipation, nephrogenic diabetes insipidus, PICA, chronic normocytic anemia, CKD stage III she GERD, and recurrent aspiration pneumonia who presents to the ED from a intermediate for evaluation of hypoxia. Pt was just discharged yesterday after being admitted for acute hypoxic respiratory failure in the setting of sepsis from aspiration pneumonia. Patient was treated with IV antibiotics and discharged back to intermediate on Augmentin for 10 days. Patient is nonverbal at baseline and incapable of providing HPI, which is instead taken from chart review and intermediate staff member who is at bedside. This morning patient apparently was short of breath and hypoxic, satting at 87% on RA. Patient is not on home O2. Staff also report patient feeling ?warm? to touch, the temperature was apparently not taken. Patient also with slight cough. No evidence of vomiting or nausea, diarrhea, abdominal pain. In the ED patient was afebrile but satting at 90% on 2L NC. Labs were significant for WBC 11.9, H&H stable at 11.2 33.6, otherwise unremarkable. Renal and hepatic function WNL. VBG with pH 7.53 and bicarb 31. UA negative for UTI. CXR showed increasing right perihilar consolation/infiltrate. EKG demonstrated normal sinus rhythm with nonspecific ST-T depressions in V3 and V4. Pt was treated with ceftriaxone and azithromycin. Pt will be admitted to the hospital for acute hypoxic respiratory failure in the setting likely aspiration pneumonia. Review of Systems Review of Systems: Unable to obtain due to patient's mentation [facility] Medical History Dysphagia Pica Seizures BPH (benign prostatic hyperplasia) Dysphagia Pneumonia Mentally challenged Developmental non-verbal disorder Autism Hydrocele Chronic renal disease Hyperlipemia Anemia Hypertension Hiatal hernia GERD (gastroesophageal reflux disease) OCD (obsessive compulsive disorder) Bipolar 1 disorder Surgical History History of colectomy H/O exploratory laparotomy Social History Household Members: Unknown / Unable to assess Household Members Other:: intermediate Housing: Assisted Living Facility Housing Other:: intermediate Do you presently have visiting nurse or other home services: No Unable to assess alcohol history related to: Unable to respond Alcohol intake: never Patient Tobacco Use Status: Never used Tobacco Smoked in Last 30 Days: No Use of substances other than those prescribed or required for medical reasons: No Advance Directives: Yes Advance Directives on File: Yes Advance Directives Date on File: 12/24/21 service: No Current occupational status: disabled Meds Allergies Allergy/AdvReac Type Severity Reaction Status Date / Time haloperidol [From HALDOL] AdvReac Unknown UNKNOWN Verified 06/20/22 09:58 metoclopramide [From REGLAN] AdvReac Unknown UNKNOWN Verified 06/20/22 09:58 Active Medications: Current Medications Azithromycin 500 mg/ Sodium (Chloride) 250 mls @ 125 mls/hr IV ONCE ONE Stop: 11/14/22 13:46 Last Admin: 11/14/22 12:30 Dose: 125 mls/hr Home Medications Medication Instructions Recorded Confirmed Last Taken Type bacitracin zinc 500 unit/gram 1 appl topical BID PRN Wound Care 12/24/21 11/14/22 Unknown History topical ointment clonazepam 0.5 mg tablet 0.5 mg feeding tube DAILY PRN 11/10/22 11/14/22 Unknown History Agitation docusate sodium 60 mg/15 mL oral 100 mg feeding tube BEDTIME 11/10/22 11/14/22 Unknown History syrup omeprazole 20 mg capsule,delayed 40 mg feeding tube DAILY@0630 11/10/22 11/14/22 Unknown History release wheat dextrin 3 gram/3.5 gram oral 1 packet PO BID@0800,1600 11/10/22 11/14/22 Unknown History powder (Best Fiber) Physical Exam Vital Signs and Narrative: Vital Signs: Last Vital Signs Temp 97.9 F 11/14/22 12:01 Pulse 78 11/14/22 12:01 Resp 13 11/14/22 12:01 BP 115/67 11/14/22 12:01 Pulse Ox 97 11/14/22 12:01 O2 Del Method Room Air 11/14/22 12:01 Oxygen Flow Rate 3 11/14/22 08:39 BMI result Body Mass Index 26.1 Constitutional : Awake, frail looking, upper extremities contracted Neck : Normal inspection, Supple Cardiovascular : RRR, no JVP, trace lower extremity edema Respiratory : fair bilateral air entry, basal fine crackles Gastrointestinal: Soft, lax, +bowel sounds, non tender, G-tube in place Skin: Warm, Dry Neurological: Alert, non verbal, moving extremities Results Labs 11/14/22 09:11 11/14/22 09:10 Labs: Laboratory Results - last 24 hr 11/14/22 11/14/22 11/14/22 09:09 09:10 09:11 MCV 97.7 MCH 32.6 MCHC 33.3 RDW 14.9 Plt Count 168 D MPV 10.4 Immature Gran % (Auto) 2.3 H Neut % (Auto) 78.1 H Lymph % (Auto) 12.4 L [place] % (Auto) 6.7 Eos % (Auto) 0.2 Baso % (Auto) 0.3 Lymph # (Auto) 1.5 [place] # (Auto) 0.8 Eos # (Auto) 0.0 Baso # (Auto) 0.0 Abs Immat Gran (auto) 0.27 H Absolute Neuts (auto) 9.3 H Absolute Nucleated RBC 0.050 H Nucleated RBC % (auto) 0.4 H VBG pH VBG pCO2 VBG pO2 VBG HCO3 VBG O2 Saturation VBG Base Excess Anion Gap 14 Estim Creat Clear Calc 70.6 Estimated GFR > 60 Random Glucose 67 Lactic Acid 1.3 Calcium 10.4 H D Magnesium 2.1 Total Bilirubin 0.3 Direct Bilirubin 0.1 AST 31 ALT 20 Alkaline Phosphatase 65 Total Protein 7.5 Albumin 3.2 L Procalcitonin 2.26 Urine Color Urine Appearance Urine pH Ur Specific [place] Urine Protein Urine Glucose (UA) Urine Ketones Urine Blood Urine Nitrite Ur Leukocyte Esterase 11/14/22 11/14/22 09:21 10:36 MCV MCH MCHC RDW Plt Count MPV Immature Gran % (Auto) Neut % (Auto) Lymph % (Auto) [place] % (Auto) Eos % (Auto) Baso % (Auto) Lymph # (Auto) [place] # (Auto) Eos # (Auto) Baso # (Auto) Abs Immat Gran (auto) Absolute Neuts (auto) Absolute Nucleated RBC Nucleated RBC % (auto) VBG pH 7.53 H VBG pCO2 36 VBG pO2 51 VBG HCO3 31 H VBG O2 Saturation 83.0 VBG Base Excess 8.4 Anion Gap Estim Creat Clear Calc Estimated GFR Random Glucose Lactic Acid Calcium Magnesium Total Bilirubin Direct Bilirubin AST ALT Alkaline Phosphatase Total Protein Albumin Procalcitonin Urine Color Yellow Urine Appearance Clear Urine pH 8.0 Ur Specific [place] 1.010 Urine Protein Negative Urine Glucose (UA) Negative Urine Ketones Negative Urine Blood Negative Urine Nitrite Negative Ur Leukocyte Esterase Negative Imaging Radiologist's Impressions: Impressions Chest X-Ray 11/14/22 09:15 IMPRESSION: Increasing right perihilar consolidation/infiltrate. Assessment and Plan (1) Acute respiratory failure with hypoxia: Status: Acute Plan Pt is a -year-old female with a PMH significant for?autism, intellectual disability, OCD, bipolar disorder, seizure disorder, dysphagia, hypertension, hep B carrier, chronic constipation, nephrogenic diabetes insipidus, PICA, chronic normocytic anemia, CKD stage III she GERD, and recurrent aspiration pneumonia who presents to the ED from a intermediate for evaluation of hypoxia. Pt was just discharged yesterday after being admitted for acute hypoxic respiratory failure in the setting of sepsis from aspiration pneumonia. Pt will be admitted to the hospital for acute hypoxic respiratory failure in the setting likely recurrent aspiration pneumonia. Acute hypoxic respiratory failure in the setting of likely aspiration pneumonia Patient setting as low as 87% on RA, now on 2L NC CXR increasing right perihilar consolidation/infiltrate Does not meet sepsis criteria Patient discharged yesterday on Augmentin x10 days Given ceftriaxone, azithromycin in ED Will switch to Unasyn 3g q6hr, started 11/15/2022 Duonebs prn Titrate supplemental O2 >92, wean as tolerated Monitor respiratory status Follow cultures Seizure disorder Continue valproic acid Mood disorder Continue citalopram, olanzapine GERD Continue PPI Diet/nutrition Patient with PEG tube Last nutrition consult suggested Jevity 1.0 at max goal rate of 70 mL/hr continuous with 120 mL free fluid flushes q.6 hours Will get nutrition consult for re-evaluation of pt's feeding given likely repeated aspiration in the past week Full Code Attending:?Dr. Jarvis DVT Prophylaxis: Lovenox Time Spent With Patient Time: Total time managing care of this patient today ____ minutes. Quality Stroke Does the patient have a stroke diagnosis?: No VTE Prior VTE?: No VTE Risk Level:: Medical - moderate - high VTE Device Contraindication: Treatment Not Indicated VTE Drug Contraindication: N/A - Med Ordered
[2022-11-14] MEDS: Enoxaparin Sodium 40 MG/0.4 ML SYRINGE SUBCUT (14:50)
--- NOTE | 2022-11-14 15:28 | MHC.CLN ---
NUTRITION CONSULT FOR TUBE FEEDING. DEPENDENT ON TUBE FEEDING FOR 100% NUTRITION SUPPORT. HAS HAD PEG TUBE FEEDING X 10 MONTHS. HX ASPIRATION PNEUMONIA. CONTINUOUS FEED, RATHER THAN BOLUS TUBE FEEDING, DUE TO HX ASPIRATION. RECOMMEND JEVITY 1.0 AT MAX GOAL RATE 70 ML PER HOUR. FREE WATER FLUSH 240 ML Q 8 HOURS. PROVIDES 1781 KCALS (25.8 KCALS/KG); 74 G PROTEIN (1.07 G/KG); 2123 ML FREE WATER FROM FORMULA AND FLUSH (30.8 ML/KG). MONITOR FOR TUBE FEED TOLERANCE, RESIDUALS, AND LABS. SEE CLINICAL NUTRITION ASSESSMENT 11/14/22.
[2022-11-14] MEDS: 0.9 % Sodium Chloride Flush 3 ML SYRINGE IVFLUSH ×2 (18:04→21:21)
--- NOTE | 2022-11-14 20:07 | PC.NURSE ---
Assumed care at 16:30. Patient admitted in company of retirement staff, nurse from retirement contacted for assistance with admission. Patient is nonverbal. No commands followed. Moves all extremities slightly and not purposefully. TF diet via PEG LUQ, minimal gastric residual. Started TF at 1800, 240 ccs H2O given. Guardian contacted and consented to flu shot, given in left deltoid. Patient arrived on 2 LPM nasal cannula, was titrated down, trialed room air was 86% on RA, was increased to 1 LPM and 91% on 1 LPM. SKin noted to have blanchable redness to bilateral heels and lateral aspects of feet, heel booties applied. small skin tear/abreation to left foot dorsum blanchable, also right toes all four except great toe with small skin abrasions on knuckles. +2 edema to sacrum and bilateral lower extremities, nonpitting scrotal edema. incontinent of urine, wraps used.
[2022-11-14] MEDS: Docusate Sodium 100 MG/10 ML LIQUID G-TUBE (21:20)
[2022-11-14] MEDS: polyethylene glycoL 3350 17 GM POWD.PACK G-TUBE (21:21)
[2022-11-14] MEDS: OLANZapine 10 MG TABLET 20 MG G-TUBE (21:21)
[2022-11-15 04:00] VITALS: BP 146/75; PULSE 77; RESP 16; TEMP 37.1; O2SAT 94
[2022-11-15] MEDS: Omeprazole/Na Bicarb Oral Susp 20 MG/10 ML UD Cup 40 MG G-TUBE (05:18)
[2022-11-15 07:26] VITALS: BP 109/66; PULSE 78; RESP 16; TEMP 36.2; O2SAT 95
--- NOTE | 2022-11-15 08:57 | P.PNIM_ITS ---
Subjective Subjective Date of Service: 11/15/22 Interval History: no compliants Physical Exam 2 Vital Signs: Vital Signs: Last Vital Signs Temp 97.1 F 11/15/22 07:26 Pulse 78 11/15/22 07:26 Resp 16 11/15/22 07:26 BP 109/66 11/15/22 07:26 Pulse Ox 95 11/15/22 07:26 O2 Del Method Nasal Cannula 11/15/22 07:26 O2 Flow Rate 1 11/15/22 07:26 Oxygen Flow Rate 3 11/14/22 08:39 BMI result Body Mass Index 26.1 alert, non verbal, no acute distress, crackles bilateral Objective Data Active Medications Acetaminophen (Acetaminophen 325 Mg Tablet) 650 mg G-TUBE Q6H PRN PRN Reason: Pain, Mild (Pain Scale 1-3) Albuterol/Ipratropium (Albuterol/Iprat 2.5/0.5mg 3 Ml Ampul.Neb) 3 ml INHALE RQ4H WHILE AWAKE PRN PRN Reason: Shortness of Breath/Wheezing Clonazepam (Clonazepam 0.5 Mg Tablet) 0.5 mg G-TUBE DAILY PRN PRN Reason: Agitation Docusate Sodium (Docusate Sodium 100 Mg/10 Ml Liquid) 100 mg G-TUBE BEDTIME [facility] Last Admin: 11/14/22 21:20 Dose: 100 mg Documented By: SPARKLEORALDipti Enoxaparin Sodium (Enoxaparin Sodium 40 Mg/0.4 Ml Syringe) 40 mg SUBCUT Q24H [facility] Last Admin: 11/14/22 14:50 Dose: 40 mg Documented By: MERARI Escitalopram Oxalate (Escitalopram Oxalate 10 Mg Tablet) 30 mg G-TUBE DAILY RODOLFO Guaifenesin/Dextromethorphan (Guaifenesin Dm 100/10/5 Ml 5 Ml Syrup) 10 ml G- TUBE Q6H PRN PRN Reason: Cough Ampicillin Sodium/Sulbactam (Sodium 3 gm/ Sodium Chloride) 100 mls @ 200 mls/hr IV Q6H RODOLFO Loratadine (Loratadine 10 Mg Tablet) 10 mg G-TUBE DAILY RODOLFO Magnesium Hydroxide (Milk Of Magnesia 30 Ml Oral.Susp) 30 ml G-TUBE DAILY PRN PRN Reason: Constipation Olanzapine (Olanzapine 10 Mg Tablet) 10 mg G-TUBE DAILY RODOLFO Olanzapine (Olanzapine 10 Mg Tablet) 20 mg G-TUBE BEDTIME [facility] Last Admin: 11/14/22 21:21 Dose: 20 mg Documented By: WALDEMAR Omeprazole (Omeprazole/Na Bicarb Oral Susp 20 Mg/10 Ml Ud Cup) 40 mg G-TUBE DAILY@0630 [facility] Last Admin: 11/15/22 05:18 Dose: 40 mg Documented By: WALDEMAR Ondansetron HCl (Ondansetron Hcl 4 Mg/2 Ml Vial) 4 mg IVPUSH Q8H PRN PRN Reason: Nausea and Vomiting Polyethylene Glycol (Polyethylene Glycol 3350 17 Gm Powd.Pack) 17 gm G-TUBE BID [facility] Last Admin: 11/14/22 21:21 Dose: 17 gm Documented By: WALDEMAR Sodium Chloride (0.9 % Sodium Chloride Flush 3 Ml Syringe) 3 ml IVFLUSH QSHIFT [facility] Last Admin: 11/14/22 21:21 Dose: 3 ml Documented By: WALDEMAR Valproic Acid (Valproic Acid (As Sodium Salt) 250 Mg/5 Ml Solution) 1,000 mg G- TUBE BID [facility] Last Admin: 11/14/22 21:20 Dose: 1,000 mg Documented By: WALDEMAR Labs 11/14/22 09:11 11/14/22 09:10 Labs: Laboratory Results - last 24 hr 11/14/22 11/14/22 11/14/22 09:09 09:10 09:11 MCV 97.7 MCH 32.6 MCHC 33.3 RDW 14.9 Plt Count 168 D MPV 10.4 Immature Gran % (Auto) 2.3 H Neut % (Auto) 78.1 H Lymph % (Auto) 12.4 L [place] % (Auto) 6.7 Eos % (Auto) 0.2 Baso % (Auto) 0.3 Lymph # (Auto) 1.5 [place] # (Auto) 0.8 Eos # (Auto) 0.0 Baso # (Auto) 0.0 Abs Immat Gran (auto) 0.27 H Absolute Neuts (auto) 9.3 H Absolute Nucleated RBC 0.050 H Nucleated RBC % (auto) 0.4 H VBG pH VBG pCO2 VBG pO2 VBG HCO3 VBG O2 Saturation VBG Base Excess Anion Gap 14 Estim Creat Clear Calc 70.6 Estimated GFR > 60 Random Glucose 67 Lactic Acid 1.3 Calcium 10.4 H D Magnesium 2.1 Total Bilirubin 0.3 Direct Bilirubin 0.1 AST 31 ALT 20 Alkaline Phosphatase 65 Total Protein 7.5 Albumin 3.2 L Procalcitonin 2.26 Urine Color Urine Appearance Urine pH Ur Specific [place] Urine Protein Urine Glucose (UA) Urine Ketones Urine Blood Urine Nitrite Ur Leukocyte Esterase 11/14/22 11/14/22 09:21 10:36 MCV MCH MCHC RDW Plt Count MPV Immature Gran % (Auto) Neut % (Auto) Lymph % (Auto) [place] % (Auto) Eos % (Auto) Baso % (Auto) Lymph # (Auto) [place] # (Auto) Eos # (Auto) Baso # (Auto) Abs Immat Gran (auto) Absolute Neuts (auto) Absolute Nucleated RBC Nucleated RBC % (auto) VBG pH 7.53 H VBG pCO2 36 VBG pO2 51 VBG HCO3 31 H VBG O2 Saturation 83.0 VBG Base Excess 8.4 Anion Gap Estim Creat Clear Calc Estimated GFR Random Glucose Lactic Acid Calcium Magnesium Total Bilirubin Direct Bilirubin AST ALT Alkaline Phosphatase Total Protein Albumin Procalcitonin Urine Color Yellow Urine Appearance Clear Urine pH 8.0 Ur Specific [place] 1.010 Urine Protein Negative Urine Glucose (UA) Negative Urine Ketones Negative Urine Blood Negative Urine Nitrite Negative Ur Leukocyte Esterase Negative Assessment and Plan (1) Hypoxia: Status: Acute Plan 67M PMH autism, intellectual disability, OCD, bipolar disorder, seizure disorder, dysphagia s/p peg, hypertension, hep B carrier, chronic constipation, nephrogenic diabetes insipidus, PICA, chronic normocytic anemia, CKD stage III, GERD, and recurrent aspiration pneumonia presented with hypoxia acute hypoxic respiratory due to recurrent aspiration penumonia/pneumonitis unasyn, wean o2 dysphagia continue npo, gtube feeds epilepsy depakote bipolar zyprexa, lexapro gerd ppi ckd III stable dvt prophylaxis - lovenox full code reason for continued hospitalization:hypoxia Time Spent With Patient Time: Total time managing care of this patient today ____ minutes. Quality Stroke Does the patient have a stroke diagnosis?: No VTE Prior VTE?: No VTE Risk Level:: Medical - moderate - high VTE Device Contraindication: Treatment Not Indicated VTE Drug Contraindication: N/A - Med Ordered
--- NOTE | 2022-11-15 09:09 | MHC.CM.PN ---
Addendum entered by Harini Luis RN 11/15/22 09:12: IMM ADDRESSED WITH GUARDIAN KHURRAM. COPY TO BE MAILED. Original Note: PT COMES FROM [facility] IN [place], NURSE NIYAH [phone]. GUARDIAN ON FILE IS SISTER KHURRAM [phone]. PER NIYAH PT AMBULATES WITH GAIT BELT AND 1-2 ASSIST, W/C PRN. PCP: ROXANNA ZIMMERMAN MD + SHAINA HERNANDESX WILL REQUIRE BLS TRANSPORT ON DC CM WILL CONTINUE TO FOLLOW FOR ANY CHANGES IN DC NEEDS/PLAN.
[2022-11-15] MEDS: Escitalopram Oxalate 10 MG TABLET 30 MG G-TUBE (09:49)
[2022-11-15] MEDS: polyethylene glycoL 3350 17 GM POWD.PACK G-TUBE ×2 (09:49→20:57)
[2022-11-15] MEDS: Loratadine 10 MG TABLET G-TUBE (09:50)
[2022-11-15] MEDS: Ampicillin Sodium/Sulbactam Na 3 GM in 0.9 % Sodium Chloride 100 ML IV ×3 (09:50→20:54)
[2022-11-15] MEDS: OLANZapine 10 MG TABLET G-TUBE (09:50)
[2022-11-15] MEDS: 0.9 % Sodium Chloride Flush 3 ML SYRINGE IVFLUSH ×3 (09:51→23:30)
[2022-11-15 11:00] VITALS: O2SAT 95
[2022-11-15] MEDS: Enoxaparin Sodium 40 MG/0.4 ML SYRINGE SUBCUT (14:26)
[2022-11-15 14:44] VITALS: O2SAT 92
[2022-11-15 15:32] VITALS: BP 130/58; PULSE 109; RESP 18; TEMP 36; O2SAT 92
--- NOTE | 2022-11-15 17:02 | HO.SKINPHOTO ---
Late entry note from 11/14/22 Location: L foot dorsum, medial aspect Category: abrasion Stage: partial thickness Length: 0.5 Width: 0.5 Depth: 0.2 cm Location:R dorsal toes 2-5 Category: abrasions Stage: partial thickness Length: 0.5 Width: 0.5 Depth: 0.1 cm Location: Category: Stage: Length: Width: Depth: cm Location: Category: Stage: Length: Width: Depth: cm Location: Category: Stage: Length: Width: Depth: cm Location: Category: Stage: Length: Width: Depth: cm
[2022-11-15 19:55] VITALS: PULSE 92; RESP 18; TEMP 36.2; O2SAT 95
[2022-11-15] MEDS: OLANZapine 10 MG TABLET 20 MG G-TUBE (20:58)
[2022-11-15] MEDS: Docusate Sodium 100 MG/10 ML LIQUID G-TUBE (21:38)
[2022-11-16] MEDS: Ampicillin Sodium/Sulbactam Na 3 GM in 0.9 % Sodium Chloride 100 ML IV ×2 (03:16→08:27)
[2022-11-16 03:24] VITALS: BP 106/55; PULSE 69; RESP 16; TEMP 36; O2SAT 97
[2022-11-16 05:09] LABS: Hematocrit 32.4 % (42.0-52.0); Hemoglobin 10.4 g/dl (14.0-18.0); Mean Corpuscular HGB Conc 32.1 g/dl (31.0-36.0); Mean Corpuscular Hemoglobin 31.9 pg (27.0-33.0); Mean Corpuscular Volume 99.4 fL (80.0-98.0); Mean Platelet Volume 9.8 fL (9.4-12.4); NRBC Pct Auto 0.5 /100WBC (0.0-0.2); Platelet Count 219 X10*3/uL (160-400); Red Blood Count 3.26 X10*6/uL (4.60-5.80); Red Cell Distribution Width 14.4 % (11.0-16.0); White Blood Count 6.2 X10*3/uL (4.8-10.8)
[2022-11-16 05:26] LABS: Anion Gap 16 (12-20); Blood Urea Nitrogen 23 mg/dL (9-16); Calcium 9.2 mg/dL (8.4-10.2); Carbon Dioxide 22 mmol/L (22-29); Chloride 111 mmol/L (96-108); Creatinine Clr Calc Pharmacy 77.9; Estimated Glomerular Filt Rate > 60; Glucose Fasting 85 mg/dL (60-99); Potassium 3.9 mmol/L (3.3-5.1); Sodium 145 mmol/L (135-145)
[2022-11-16] MEDS: Omeprazole/Na Bicarb Oral Susp 20 MG/10 ML UD Cup 40 MG G-TUBE (05:34)
[2022-11-16 07:29] VITALS: BP 130/72; PULSE 72; RESP 16; TEMP 36; O2SAT 96
[2022-11-16] MEDS: Loratadine 10 MG TABLET G-TUBE (08:28)
[2022-11-16] MEDS: Escitalopram Oxalate 10 MG TABLET 30 MG G-TUBE (08:28)
[2022-11-16] MEDS: polyethylene glycoL 3350 17 GM POWD.PACK G-TUBE (08:28)
[2022-11-16] MEDS: 0.9 % Sodium Chloride Flush 3 ML SYRINGE IVFLUSH (08:28)
[2022-11-16] MEDS: OLANZapine 10 MG TABLET G-TUBE (08:28)
[2022-11-16 08:30] VITALS: O2SAT 94
--- NOTE | 2022-11-16 09:15 | P.DS_ITS ---
DS: Providers Provider Date of Service: 11/16/22 Date of admission: 11/14/22 14:04 Primary care physician: Tomy Rangel MD DS: Diagnosis Discharge Diagnosis (1) Hypoxia: Status: Acute DS: Summary Hospital Course Hospital Course: from initial hpi: Pt is a 67 - year-old male with a PMH significant for autism, intellectual disability, OCD, bipolar disorder, seizure disorder, dysphagia, hypertension, hep B carrier, chronic constipation, nephrogenic diabetes insipidus, PICA, chronic normocytic anemia, CKD stage III she GERD, and recurrent aspiration pneumonia who [facility] ED from a prison for evaluation of hypoxia. Pt was just discharged yesterday after being admitted for acute hypoxic respiratory failure in the setting of sepsis from aspiration pneumonia. Patient was treated with IV antibiotics and discharged back to prison on Augmentin for 10 days. Patient is nonverbal at baseline and incapable of providing HPI, which is instead taken from chart review and prison staff member who is at bedside. This morning patient apparently was short of breath and hypoxic, satting at 87% on RA. Patient is not on home O2. Staff also report patient feeling ?warm? to touch, the temperature was apparently not taken. Patient also with slight cough . No evidence of vomiting or nausea, diarrhea, abdominal pain. In the ED patient was afebrile but satting at 90% on 2L NC. Labs were significant for WBC 11.9, H&H stable at 11.2 33.6, otherwise unremarkable. Renal and hepatic function WNL. VBG with pH 7.53 and bicarb 31. UA negative for UTI. CXR showed increasing right perihilar consolation/infiltrate. EKG demonstrated normal sinus rhythm with nonspecific ST-T depressions in V3 and V4. Pt was treated with ceftriaxone and azithromycin. Pt will be admitted to the hospital for acute hypoxic respiratory failure in the setting likely aspiration pneumonia. hospital course: Patient was admitted for acute hypoxic respiratory failure due to recurrent aspiration pneumonia/pneumonitis. He achieved with Unasyn and weaned off oxygen. For his dysphagia he will continue NPO NG tube feeds, head of bed should remain elevated especially while getting feeds. Clonazepam will be discontinued in case contributing to aspiration events. Will continue Augmentin course from previous discharge. For epilepsy was continued on Depakote. For bipolar disorder was continue on Zyprexa and Lexapro. For GERD was continue PPI. For CKD 3 he remained stable. Patient is back to baseline will be discharged back to prison. Time Spent with Patient Time attestation: Total time managing care of this patient today ____ minutes. Discharge coordination time: Greater than 30 minutes Quality: Safe Use of Opioids Does Pt have an Active Cancer Diagnosis on the Problem List?: No Quality: Stroke Does the patient have a stroke diagnosis?: No Physical Exam Vital Signs: Vital Signs: Last Vital Signs Temp 96.8 F 11/16/22 07:29 Pulse 72 11/16/22 07:29 Resp 16 11/16/22 07:29 BP 130/72 11/16/22 07:29 Pulse Ox 96 11/16/22 07:29 O2 Del Method Nasal Cannula 11/16/22 07:29 O2 Flow Rate 1 11/16/22 07:29 Oxygen Flow Rate 3 11/14/22 08:39 BMI result Body Mass Index 26.1 alert, non verbal, no acute distress, crackles bilateral DS: Data Data Completed and Pending Completed studies during hospitalization [Text1]: Procedures Insertion of Feeding Device into Stomach, Percutaneous Approach (01/02/22) Labs on day of discharge: Laboratory Results - last 24 hr 11/16/22 04:13 WBC 6.2 RBC 3.26 L Hgb 10.4 L Hct 32.4 L MCV 99.4 H MCH 31.9 MCHC 32.1 RDW 14.4 Plt Count 219 D MPV 9.8 Absolute Nucleated RBC 0.030 H Nucleated RBC % (auto) 0.5 H Sodium 145 Potassium 3.9 Chloride 111 H Carbon Dioxide 22 Anion Gap 16 BUN 23 H Creatinine 0.77 Estim Creat Clear Calc 77.9 Estimated GFR > 60 Fasting Glucose 85 Calcium 9.2 D Preliminary micro results at discharge 11/14/22 09:23 Blood Culture - Preliminary Blood - Venous No growth after 24 hours. 11/14/22 09:11 Blood Culture - Preliminary Blood - Venous No growth after 24 hours. Discharge Plan Discharge Anticipated Discharge Date/Time: 11/16/22 09:13 Patient Disposition: Home, Self-Care Discharge Diagnosis: aspiration pneumonia Referrals: Tomy Rangel MD [Primary Care Provider] - 1 Week Discharge Medications: Continued bacitracin zinc 500 unit/gram ointment 1 appl topical BID PRN (Reason: Wound Care) acetaminophen 325 mg tablet 650 mg feeding tube Q6H PRN (Reason: Pain) Qty: 60 0RF dextromethorphan-guaifenesin 10-100 mg/5 mL Liquid 10 ml feeding tube Q6H PRN (Reason: Cough) Qty: 500 0RF olanzapine 10 mg tablet 10 mg feeding tube DAILY Qty: 60 0RF citalopram 20 mg tablet 60 mg feeding tube DAILY Qty: 60 0RF magnesium hydroxide [Milk of Magnesia] 400 mg/5 mL suspension 30 ml feeding tube DAILY PRN (Reason: Constipation) Qty: 355 0RF valproic acid (as sodium salt) 250 mg/5 mL solution 1,000 mg feeding tube BID Qty: 473 0RF simethicone [Gas Relief (simethicone)] 40 mg/0.6 mL drops,suspension 40 mg feeding tube TID@0800,1600,2000 Qty: 30 0RF polyethylene glycol 3350 17 gram/dose powder 17 g feeding tube BID Qty: 510 0RF Rx Instructions: hold if more than 3 BM's in 1 day olanzapine 20 mg tablet 20 mg feeding tube BEDTIME Qty: 30 0RF loratadine 10 mg tablet 10 mg feeding tube DAILY Qty: 60 0RF omeprazole 20 mg capsule,delayed release(DR/EC) 40 mg feeding tube DAILY@0630 Rx Instructions: needs to be given with water juice or snack docusate sodium 60 mg/15 mL syrup 100 mg feeding tube BEDTIME Best Fiber 3 gram/3.5 gram powder 1 packet PO BID@0800,1600 Rx Instructions: mix into at least 4 oz water or juice before administering amoxicillin-pot clavulanate 400-57 mg/5 mL suspension for reconstitution 10 ml PO BID Qty: 100 0RF (DME) #18 MACKENZIE gastrostomy feeding #18 [place] See Rx Instructions .Route .MEDSUPPLY Qty: 1 0RF Rx Instructions: Every 6 months Discontinued clonazepam 0.5 mg tablet 0.5 mg feeding tube DAILY PRN (Reason: Agitation) Discharge Orders: Discharge Order (Routine); Ordered 11/16/22 Ordered By: Ron Jarvis Diet: tube feeds Activity on Discharge: As tolerated Stand Alone Forms: Patient Portal Discharge page Care Plan Goals: avoid aspiration Health Concerns: dysphagia Plan of Treatment: npo, tube feeds, aspiration precautions, will hold clonazepam Assessment: see above
--- NOTE | 2022-11-16 09:40 | MHC.CM.PN ---
DP: PATIENT MEDICALLY CLEARED FOR DC. ASSISTED NURSE NIYAH AND HCP KHURRAM KUMAR. WILL RETURN VIA [facility] TRANSORT AT 11:30AM.
== END 2022-11-16 12:50 | disposition home or self-care (01) | DRG 177 ==
LOC: HO.ED 12:04 → HO.EDOVER 14:16 → HO.S3 14:32
PROVIDERS: Physician Assistant; Admitting Provider Student in an Organized Health Care Education/Training Program; Emergency Provider Emergency Medicine; PCP Internal Medicine; Visit Provider Internal Medicine
DX: J69.0 Pneumonitis due to inhalation of food and vomit (principal); J96.01 Acute respiratory failure with hypoxia; F84.0 Autistic disorder; G40.909 Epilepsy, unspecified, not intractable, without status epilepticus; E78.5 Hyperlipidemia, unspecified; R13.10 Dysphagia, unspecified; I12.9 Hypertensive chronic kidney disease with stage 1 through stage 4 chronic kidney disease, or unspecified chronic kidney disease; F42.9 Obsessive-compulsive disorder, unspecified; N18.30 Chronic kidney disease, stage 3 unspecified; Z93.1 Gastrostomy status; Z79.899 Other long term (current) drug therapy
CPT/HCPCS: 36415; 71045; 80048; 80076; 81003; 82803; 83605; 83735; 84145; 85025; 85027; 87040; 90686; 93005; 99285; J0295; J0456; J0696; J1650

== ENCOUNTER → 2022-11-14 14:04 | Outpatient (BNV) | payer MEDICARE, MEDICAID, SELFPAY | PROVIDERS: Admitting Provider Student in an Organized Health Care Education/Training Program; Emergency Provider Emergency Medicine; PCP Internal Medicine; Visit Provider Student in an Organized Health Care Education/Training Program | DX: J96.01 Acute respiratory failure with hypoxia (principal) | CPT/HCPCS: 99223; 99232; 99239 ==

== ENCOUNTER 2022-12-18 09:43 | Outpatient (AMB) | payer MEDICARE, MEDICAID, SELFPAY ==
--- NOTE | 2022-12-18 09:48 | A.OFFVIS_ITS ---
Intake Intake Visit Reasons: Hydrocele-1y/surgical options Intake Note: Patient is Present for Follow Up Hydrocele Surgical Options Urology Medication: Finasteride Antibiotic Allergies: None Blood Thinners: None Pharmacy: Center Complaints: Hydrocele is causing discomfort and it seems larger than before. Allergies haloperidol [From HALDOL] Adverse Reaction (Unknown, Verified 12/18/22 09:51) UNKNOWN metoclopramide [From REGLAN] Adverse Reaction (Unknown, Verified 12/18/22 09:51) UNKNOWN Medication List - Last Reconciled 12/18/22 by Tunde Tolliver MD [#18 MACKENZIE gastrostomy feeding Every 6 months] acetaminophen 650 mg (2 x 325 mg) feeding tube Q6H PRN amoxicillin-pot clavulanate 400-57 mg/5 mL 10 mL PO BID bacitracin zinc 1 appl topical BID PRN citalopram 60 mg (3 x 20 mg) feeding tube DAILY citalopram 40 mg PO DAILY dextromethorphan-guaifenesin 10-100 mg/5 mL 10 mL feeding tube Q6H PRN docusate sodium 100 mg feeding tube BEDTIME finasteride 5 mg PO DAILY loratadine 10 mg feeding tube DAILY magnesium hydroxide (Milk of Magnesia) 30 mL feeding tube DAILY PRN nystatin 1 appl topical BID olanzapine 10 mg feeding tube DAILY olanzapine 20 mg feeding tube BEDTIME omeprazole 40 mg feeding tube DAILY@0630 polyethylene glycol 3350 17 grams feeding tube BID simethicone (Gas Relief (simethicone)) 40 mg (0.6 mL) feeding tube TID@0800,1600,2000 valproic acid (as sodium salt) 1,000 mg (20 mL) feeding tube BID wheat dextrin (Best Fiber) 1 packet PO BID@0800,1600 HPI HPI Comments History of Present Illness Details Mingo is a nonverbal? resident of a group house with developmental delay.. They are a patient of Dr.? Rangel. They are seen in the office today for the following urologic conditions - nocturia - bladder outlet obstruction - hydrocele Discussed with nursing staff Large hydrocele left side Has started to interfere with ability to set Discussion regarding drainage versus operative repair Given other behavior considerations they would like to attempt drainage 1st Discussed with sister Sherry who is his healthcare proxy She is in agreement Had been taken off doxazosin secondary to blood pressure related issues. Started on tamsulosin. Still has some soft blood pressure. Can come off tamsulosin but remain on finasteride Bladder outlet obstruction Has done well with combination therapy ?On exam has large left hydrocele ?Recommendation for hydrocelectomy ?Discussed with case work. ? Current visit is for?initial symptom evaluation of, lower urinary tract symptoms, predominate irritative symptoms.? - G tube placement for feeding ? Current treatment includes finasteride ? Symptoms include?incomplete emptying, nocturia (>2), and are progressing.? Treatment plan?- maintain finasteride ? [facility] Medical History Dysphagia Pica Seizures BPH (benign prostatic hyperplasia) Dysphagia Pneumonia Mentally challenged Developmental non-verbal disorder Autism Hydrocele Chronic renal disease Hyperlipemia Anemia Hypertension Hiatal hernia GERD (gastroesophageal reflux disease) OCD (obsessive compulsive disorder) Bipolar 1 disorder Surgical History History of colectomy H/O exploratory laparotomy Social History Household Members: Other Household Members Other:: [facility] services Housing: Other Housing Other:: as above Do you presently have visiting nurse or other home services: Yes (staffing 24 hours, not nursing, administer meds and TF and ADLs) Unable to assess alcohol history related to: Unable to respond Alcohol intake: never Patient Tobacco Use Status: Never used Tobacco Advance Directives Date on File: 12/24/21 service: No Current occupational status: disabled Review of Systems Const Denies chills and Denies fever(s) Card Reports no additional complaints and Denies syncope Resp Denies cough GI Denies abdominal pain and Denies heartburn Reports as per HPI and Denies change in libido Neuro Denies syncope Psych Denies change in libido Endo Denies change in libido Physical Exam Const General: cooperative, healthy appearing, comfortable and no acute distress Orientation/consciousness: patient oriented x3 HEENT Face and sinus: Yes normal facial exam Mouth: moist mucous membranes Neck Neck: Yes normal visual inspection, Yes full ROM and Yes trachea midline Chest Chest palpation & inspection: normal inspection of the chest Resp Effort & Inspection: normal respiratory effort, able to speak in complete sentences and no respiratory distress GI Inspection: Yes normal to inspection Back/Spine/Pelvis Cervical Spine: normal cervical lordosis Thoracic/Lumbar Spine: thoracic and lumbar spine normal to inspection Skin General skin exam: no rashes or lesions noted Neuro General: patient oriented x3, gait normal, tone normal and moves all extremities Extrem General: Yes normal to inspection and Yes capillary refill normal Assessment & Plan Assessment & Plan (1) Bladder outlet obstruction: Code(s): N32.0 - Bladder-neck obstruction (2) Hydrocele: Code(s): N43.3 - Hydrocele, unspecified Qualifiers: Hydrocele type: unspecified Qualified Code(s): N43.3 - Hydrocele, unsp ecified Plan Hydrocele aspiration office Risks, benefits and alternatives to therapy were discussed. These include but are not limited to infection, bleeding, damage to local organs and tissues, need for further interventions. Anesthetic risks regarding cardiac arrhythmia, blood clots, and potential mortality were discussed. The patient understands the typical recovery time and the outpatient nature of the procedure. After consideration of these risks the patient gives full informed consent and they wish to move ahead with the procedure. Medications: New clonazepam Take via G-tube 2 hours prior to office procedure for hydrocele aspiration 0.5 mg feeding tube ONCE 7 days 1 tab 0RF N43.3 - Hydrocele, unspecified Patient Instructions: Imaging studies, laboratory and physical exam results were discussed and reviewed in detail. No major barriers to patient understanding were identified. An opportunity to ask questions regarding the treatment plan was provided. All questions were answered. The patient expressed understanding and agreement with the above treatment plan. The patient is aware they should contact our office by phone for worsening of their current condition or the appearance of new urologic symptoms. Compliance is encouraged with any medications and followup testing that is ordered. It is a privilege to participate in the urologic care of your patient. If you have any questions or concerns regarding treatment for the above conditions, or other urologic issues, please do not hesitate to contact me. The office telephone contact is [phone]. This note is constructed using voice recognition software. While every effort has been made to ensure accuracy director of counterintelligence errors may have been included. Yours sincerely, Dr Tunde Tolliver MD, [facility] - Urology Providers of Expert, Compassionate Care for the Genitourinary System Coding Level of Care Code Est Pt Level 4 (75512) Diagnoses Bladder outlet obstruction N32.0 Hydrocele, unspecified hydrocele type N43.3 Hydrocele type: unspecified
== END 2022-12-18 10:24 | disposition home or self-care (01) ==
LOC: HO.HUSH 09:43
PROVIDERS: PCP Internal Medicine; Visit Provider Urology
DX: N32.0 Bladder-neck obstruction (principal); N43.3 Hydrocele, unspecified
CPT/HCPCS: 99214

== ENCOUNTER → 2022-12-18 09:43 | Outpatient (BNVA) | payer MEDICARE, MEDICAID, SELFPAY | PROVIDERS: PCP Internal Medicine; Visit Provider Urology | DX: N32.0 Bladder-neck obstruction (principal); N43.3 Hydrocele, unspecified | CPT/HCPCS: 99212 ==

== ENCOUNTER 2023-01-31 08:58 | Outpatient (AMB) | payer MEDICARE, MEDICAID, SELFPAY ==
--- NOTE | 2023-01-31 09:02 | MHC.OFFVIS ---
Intake Intake Visit Reasons: left hydrocele aspiration Intake Note: Patient is Present for Follow Up Hydrocele Urology Medication: None Antibiotic Allergies: None Blood Thinners: None Allergies haloperidol [From HALDOL] Adverse Reaction (Unknown, Verified 12/18/22 09:51) UNKNOWN metoclopramide [From REGLAN] Adverse Reaction (Unknown, Verified 12/18/22 09:51) UNKNOWN HPI HPI Comments History of Present Illness Details Mingo is a nonverbal? resident of a group house with developmental delay.. They are a patient of Dr.? Rangel. They are seen in the office today for the following urologic conditions - nocturia - bladder outlet obstruction - hydrocele Here for hydrocele aspiration in office Local anesthetic Iodine swab stick 500 cc fluid left-sided aspiration 200 mg doxycycline in 20 cc 2% lidocaine used to sclerosis and Large hydrocele left side Has started to interfere with ability to set Discussion regarding drainage versus operative repair Given other behavior considerations they would like to attempt drainage 1st Discussed with sister Sherry who is his healthcare proxy She is in agreement Bladder outlet obstruction Has done well with combination therapy ?On exam has large left hydrocele ?Recommendation for hydrocelectomy ?Discussed with case work. ? Current visit is for?initial symptom evaluation of, lower urinary tract symptoms, predominate irritative symptoms.? - G tube placement for feeding ? Current treatment includes finasteride - previously had been on doxazosin and tamsulosin but had blood pressure issues ? Symptoms include?incomplete emptying, nocturia (>2), and are progressing.? Treatment plan?- maintain finasteride ? PFSH Medical History Dysphagia Pica Seizures BPH (benign prostatic hyperplasia) Dysphagia Pneumonia Mentally challenged Developmental non-verbal disorder Autism Hydrocele Chronic renal disease Hyperlipemia Anemia Hypertension Hiatal hernia GERD (gastroesophageal reflux disease) OCD (obsessive compulsive disorder) Bipolar 1 disorder Surgical History History of colectomy H/O exploratory laparotomy Social History Household Members: Other Household Members Other:: snf, [facility] Housing: Other Housing Other:: as above Do you presently have visiting nurse or other home services: Yes (staffing 24 hours, not nursing, administer meds and TF and ADLs) Unable to assess alcohol history related to: Unable to respond Alcohol intake: never Comment: snf staff in room Patient Tobacco Use Status: Never used Tobacco Advance Directives Date on File: 12/24/21 service: No Current occupational status: disabled Review of Systems Const Denies chills and Denies fever(s) Card Reports no additional complaints and Denies syncope Resp Denies cough GI Denies abdominal pain and Denies heartburn Reports as per HPI and Denies change in libido Neuro Denies syncope Psych Denies change in libido Endo Denies change in libido Physical Exam Const General: cooperative, healthy appearing, comfortable and no acute distress Orientation/consciousness: patient oriented x3 HEENT Face and sinus: Yes normal facial exam Mouth: moist mucous membranes Neck Neck: Yes normal visual inspection, Yes full ROM and Yes trachea midline Chest Chest palpation & inspection: normal inspection of the chest Resp Effort & Inspection: normal respiratory effort, able to speak in complete sentences and no respiratory distress GI Inspection: Yes normal to inspection Back/Spine/Pelvis Cervical Spine: normal cervical lordosis Thoracic/Lumbar Spine: thoracic and lumbar spine normal to inspection Skin General skin exam: no rashes or lesions noted Neuro General: patient oriented x3, gait normal, tone normal and moves all extremities Extrem General: Yes normal to inspection and Yes capillary refill normal Office Procedures Procedure Thyroid Biopsy Procedural Documentation: Sterile technique Left hydrocele aspiration 1% lidocaine used to raise bleb and scrotal skin and for cord block total 10 cc 600 cc aspirated from left hydrocele 20 cc doxycycline sclerosis and injected prior to removal of IV catheterization CPT 79382 Assessment & Plan Assessment & Plan (1) Bladder outlet obstruction: Code(s): N32.0 - Bladder-neck obstruction Plan Aspiration completed Patient Instructions: Imaging studies, laboratory and physical exam results were discussed and reviewed in detail. No major barriers to patient understanding were identified. An opportunity to ask questions regarding the treatment plan was provided. All questions were answered. The patient expressed understanding and agreement with the above treatment plan. The patient is aware they should contact our office by phone for worsening of their current condition or the appearance of new urologic symptoms. Compliance is encouraged with any medications and followup testing that is ordered. It is a privilege to participate in the urologic care of your patient. If you have any questions or concerns regarding treatment for the above conditions, or other urologic issues, please do not hesitate to contact me. The office telephone contact is [phone]. This note is constructed using voice recognition software. While every effort has been made to ensure accuracy workers compensation claims analyst errors may have been included. Yours sincerely, Dr Tunde Tolliver MD, [facility] - Urology Providers of Expert, Compassionate Care for the Genitourinary System Coding Level of Care Code Procedure Only Diagnoses Bladder outlet obstruction N32.0
== END 2023-01-31 09:35 | disposition home or self-care (01) ==
PROVIDERS: PCP Internal Medicine; Visit Provider Urology
DX: N32.0 Bladder-neck obstruction (principal)
CPT/HCPCS: 55000

== ENCOUNTER → 2023-01-31 08:58 | Outpatient (BNVA) | payer MEDICARE, MEDICAID, SELFPAY | PROVIDERS: PCP Internal Medicine; Visit Provider Urology | DX: N32.0 Bladder-neck obstruction (principal) | CPT/HCPCS: 55000 ==

== ENCOUNTER 2023-03-06 14:06 | Outpatient (AMB) | payer MEDICARE, MEDICAID, SELFPAY ==
--- NOTE | 2023-03-06 14:15 | MHC.OFFVIS ---
Intake Intake Visit Reasons: hydrocele discussion s/p drainage Allergies haloperidol [From HALDOL] Adverse Reaction (Unknown, Verified 12/18/22 09:51) UNKNOWN metoclopramide [From REGLAN] Adverse Reaction (Unknown, Verified 12/18/22 09:51) UNKNOWN HPI HPI Comments History of Present Illness Details Mingo is a nonverbal? resident of a group house with developmental delay.. They are a patient of Dr.? Rangel. They are seen in the office today for the following urologic conditions - nocturia - bladder outlet obstruction - hydrocele Recurrent left hydrocele Suggest hydrocelectomy Large hydrocele left side Has started to interfere with ability to set Discussion regarding drainage versus operative repair Given other behavior considerations they would like to attempt drainage 1st Discussed with sister Sherry who is his healthcare proxy [phone] Bladder outlet obstruction Has done well with combination therapy ?On exam has large left hydrocele ?Recommendation for hydrocelectomy ?Discussed with case work. ? Current visit is for?initial symptom evaluation of, lower urinary tract symptoms, predominate irritative symptoms.? - G tube placement for feeding ? Current treatment includes finasteride - previously had been on doxazosin and tamsulosin but had blood pressure issues ? Symptoms include?incomplete emptying, nocturia (>2), and are progressing.? Treatment plan?- maintain finasteride ? [facility] Medical History Dysphagia Pica Seizures BPH (benign prostatic hyperplasia) Dysphagia Pneumonia Mentally challenged Developmental non-verbal disorder Autism Hydrocele Chronic renal disease Hyperlipemia Anemia Hypertension Hiatal hernia GERD (gastroesophageal reflux disease) OCD (obsessive compulsive disorder) Bipolar 1 disorder Surgical History History of colectomy H/O exploratory laparotomy Social History Household Members: Other Household Members Other:: assisted, [facility] services Housing: Other Housing Other:: as above Do you presently have visiting nurse or other home services: Yes (staffing 24 hours, not nursing, administer meds and TF and ADLs) Unable to assess alcohol history related to: Unable to respond Alcohol intake: never Comment: assisted staff in room Patient Tobacco Use Status: Never used Tobacco Advance Directives Date on File: 12/24/21 service: No Current occupational status: disabled Review of Systems Const Denies chills and Denies fever(s) Card Reports no additional complaints and Denies syncope Resp Denies cough GI Denies abdominal pain and Denies heartburn Reports as per HPI and Denies change in libido Neuro Denies syncope Psych Denies change in libido Endo Denies change in libido Physical Exam Const General: cooperative, healthy appearing, comfortable and no acute distress Orientation/consciousness: patient oriented x3 HEENT Face and sinus: Yes normal facial exam Mouth: moist mucous membranes Neck Neck: Yes normal visual inspection, Yes full ROM and Yes trachea midline Chest Chest palpation & inspection: normal inspection of the chest Resp Effort & Inspection: normal respiratory effort, able to speak in complete sentences and no respiratory distress GI Inspection: Yes normal to inspection Back/Spine/Pelvis Cervical Spine: normal cervical lordosis Thoracic/Lumbar Spine: thoracic and lumbar spine normal to inspection Skin General skin exam: no rashes or lesions noted Neuro General: patient oriented x3, gait normal, tone normal and moves all extremities Extrem General: Yes normal to inspection and Yes capillary refill normal Assessment & Plan Assessment & Plan (1) Hydrocele: Code(s): N43.3 - Hydrocele, unspecified Qualifiers: Hydrocele type: unspecified Qualified Code(s): N43.3 - Hydrocele, unspecified Plan Risks, benefits and alternatives to therapy were discussed. These include but are not limited to infection, bleeding, damage to local organs and tissues, need for further interventions. Anesthetic risks regarding cardiac arrhythmia, blood clots, and potential mortality were discussed. The patient understands the typical recovery time and the outpatient nature of the procedure. After consideration of these risks the patient gives full informed consent and they wish to move ahead with the procedure. Left hydrocelectomy Patient Instructions: Imaging studies, laboratory and physical exam results were discussed and reviewed in detail. No major barriers to patient understanding were identified. An opportunity to ask questions regarding the treatment plan was provided. All questions were answered. The patient expressed understanding and agreement with the above treatment plan. The patient is aware they should contact our office by phone for worsening of their current condition or the appearance of new urologic symptoms. Compliance is encouraged with any medications and followup testing that is ordered. It is a privilege to participate in the urologic care of your patient. If you have any questions or concerns regarding treatment for the above conditions, or other urologic issues, please do not hesitate to contact me. The office telephone contact is [phone]. This note is constructed using voice recognition software. While every effort has been made to ensure accuracy garnishment specialist errors may have been included. Yours sincerely, Dr Tunde Tolliver MD, [facility] - Urology Providers of Expert, Compassionate Care for the Genitourinary System Coding Level of Care Code Est Pt Level 4 (64364) Diagnoses Hydrocele, unspecified hydrocele type N43.3 Hydrocele type: unspecified
== END 2023-03-06 15:10 | disposition home or self-care (01) ==
PROVIDERS: PCP Internal Medicine; Visit Provider Urology
DX: N43.3 Hydrocele, unspecified (principal)
CPT/HCPCS: 99214

== ENCOUNTER → 2023-03-06 14:06 | Outpatient (BNVA) | payer MEDICARE, MEDICAID, SELFPAY | PROVIDERS: PCP Internal Medicine; Visit Provider Urology | DX: N43.3 Hydrocele, unspecified (principal) | CPT/HCPCS: 99212 ==

== ENCOUNTER 2023-03-20 09:08 | Emergency (ER) | payer MEDICARE, MEDICAID, SELFPAY ==
--- NOTE | ~2023-03-20 | XR_ITS ---
EXAMINATION: XR CHEST CLINICAL INFORMATION: Fever and vomiting. COMPARISON: 11/14/2022 TECHNIQUE: Frontal view of the chest was obtained. FINDINGS: The lungs are moderately expanded. No focal consolidation. No pleural effusion. Cardiac silhouette is unchanged. Redemonstrated is gaseous distention of bowel in the upper abdomen. XR/XR chest 1V IMPRESSION: Gaseous distention of bowel in the upper abdomen. This is incompletely evaluated on the current study.
[2023-03-20 09:26] VITALS: BP 115/79; BP 145/45; PULSE 102; PULSE 90; RESP 20; TEMP 39.1; O2SAT 93; O2SAT 96; BMI 29.9
--- NOTE | 2023-03-20 09:52 | ED.NAVMDI ---
HPI - Nausea/Vomiting/Diarrhea General Chief complaint: Nausea/Vomiting/Diarrhea Stated complaint: VOMITING, ?ASP FROM HALF-WAY PER EMS Time Seen by Provider: 03/20/23 09:33 Source: other (Patient's residential staff member-Stevo) Mode of arrival: EMS Limitations: other (Patient has developmental delay) History of Present Illness HPI Narrative: 68-year-old male history of dysphagia, PICA, seizures, BPH, aspiration pneumonia, developmental nonverbal disorder, autism, chronic renal disease, hyperlipidemia, AV, hypertension, hiatal hernia, GERD, OCD, bipolar, who presents emergency department for evaluation of nausea, vomiting, fever, weakness with difficulty standing. Information comes from the patient's residential staff member. The staff got the patient up to take a shower and he was very shaky, he felt warm to the touch he would not stand up secondary to weakness which is unusual for him. He would 1 episode of vomiting and then was dry heaving. He refused to take his medicine through his G-tube patient had a temperature of 100.6 degree at the residential. Staff was concerned that the patient may have an aspiration pneumonia and patient was brought to emergency department by ambulance for evaluation. The patient did receive his COVID-19 and RSV vaccination yesterday. Related Data Home Medications Medication Instructions Recorded Confirmed bacitracin zinc 500 unit/gram 1 appl topical BID PRN Wound Care 12/24/21 12/18/22 topical ointment docusate sodium 60 mg/15 mL oral 100 mg feeding tube BEDTIME 11/10/22 12/18/22 syrup omeprazole 20 mg capsule,delayed 40 mg feeding tube DAILY@0630 11/10/22 12/18/22 release wheat dextrin 3 gram/3.5 gram oral 1 packet PO BID@0800,1600 11/10/22 12/18/22 powder (Best Fiber) citalopram 40 mg tablet 40 mg PO DAILY 12/18/22 12/18/22 nystatin 100,000 unit/gram topical 1 appl topical BID 12/18/22 12/18/22 powder Previous Rx's Medication Instructions Recorded acetaminophen 325 mg tablet 650 mg (2 x 325 mg) feeding tube 01/16/22 Q6H PRN Pain #60 tabs citalopram 20 mg tablet 60 mg (3 x 20 mg) feeding tube 01/16/22 DAILY #60 tabs dextromethorphan-guaifenesin 10 10 ml feeding tube Q6H PRN Cough 01/16/22 mg-100 mg/5 mL oral liquid #500 mL loratadine 10 mg tablet 10 mg feeding tube DAILY #60 tabs 01/16/22 magnesium hydroxide 400 mg/5 mL 30 ml feeding tube DAILY PRN 01/16/22 oral suspension (Milk of Magnesia) Constipation #355 mL olanzapine 10 mg tablet 10 mg feeding tube DAILY #60 tabs 01/16/22 olanzapine 20 mg tablet 20 mg feeding tube BEDTIME #30 tabs 01/16/22 polyethylene glycol 3350 17 17 g feeding tube BID #510 grams 01/16/22 gram/dose oral powder simethicone 40 mg/0.6 mL oral 40 mg (0.6 mL) feeding tube 01/16/22 drops,suspension (Gas Relief TID@0800,1600,2000 #30 mL (simethicone)) valproic acid (as sodium salt) 250 1,000 mg (20 mL) feeding tube BID 01/16/22 mg/5 mL oral solution #473 mL #18 MACKENZIE gastrostomy feeding #1 ea 06/20/22 amoxicillin 400 mg-potassium 10 ml PO BID #100 mL 11/13/22 clavulanate 57 mg/5 mL oral suspension clonazepam 0.5 mg tablet 0.5 mg feeding tube ONCE 7 days #1 12/18/22 tab finasteride 5 mg tablet 5 mg PO DAILY 90 days #90 tabs 02/08/23 Allergies Allergy/AdvReac Type Severity Reaction Status Date / Time haloperidol [From HALDOL] AdvReac Unknown UNKNOWN Verified 12/18/22 09:51 metoclopramide [From REGLAN] AdvReac Unknown UNKNOWN Verified 12/18/22 09:51 Review of Systems Review of Systems: Yes Other (Patient is nonverbal) [facility] Past Medical History Medical History Dysphagia Pica Seizures BPH (benign prostatic hyperplasia) Dysphagia Pneumonia Mentally challenged Developmental non-verbal disorder Autism Hydrocele Chronic renal disease Hyperlipemia Anemia Hypertension Hiatal hernia GERD (gastroesophageal reflux disease) OCD (obsessive compulsive disorder) Bipolar 1 disorder Surgical History History of colectomy H/O exploratory laparotomy Social History Social History Household Members: Other Household Members Other:: residential, [facility] Housing: Other Housing Other:: as above Do you presently have visiting nurse or other home services: Yes (staffing 24 hours, not nursing, administer meds and TF and ADLs) Unable to assess alcohol history related to: Unable to respond Alcohol intake: never Comment: residential staff in room Patient Tobacco Use Status: Never used Tobacco Advance Directives: No Advance Directives Date on File: 12/24/21 service: No Current occupational status: disabled Physical Exam Vital Signs: Vital Signs: Last Vital Signs Temp 97.5 F 03/20/23 12:47 Pulse 81 03/20/23 13:40 Resp 18 03/20/23 12:47 BP 93/53 L 03/20/23 13:40 Pulse Ox 96 03/20/23 12:47 O2 Del Method Room Air 03/20/23 12:47 BMI result Body Mass Index 29.9 Vital signs revealed an elevated temperature of a 102.3 degrees F and elevated pulse of 102-patient meets SIRS criteria Exam General: Awake, alert in no distress, nonverbal Head: No trauma EENT: PERRL, Lids normal, sclera normal, conjunctiva normal, nose normal , ears normal, patient would not open his mouth Neck: Supple, no adenopathy Lung: breath sounds symmetric, rales at bases, no wheezing or rhonchi Chest: symmetric movement, nontender Heart: r tachycardia, normal rhythm, normal S1, S2 no murmurs or rubs Abdomen: soft, non-tender, nondistended, normal bowel sounds, G-tube Back: no vertebral tenderness, no CVAT Extremities: no deformities, moves all extremities symmetrically Neuro: Moves extremities symmetrically Medications Administered Discontinued Medications Generic Name Dose Route Start Last Admin Trade Name Freq PRN Reason Stop Dose Admin Acetaminophen 960 mg 03/20/23 09:48 03/20/23 10:33 Acetaminophen Oral Liquid 650 Mg/20.3 Ml Solution G-TUBE 03/20/23 09:49 960 mg ONCE ONE Administration Sodium Chloride 2,298 mls @ 2,298 mls/hr 03/20/23 09:48 01/31/24 10:46 Ns 30 ml/kg infuse over 1 hr (2298 ml) 03/20/23 10:47 2,298 mls/hr IV Administration .Q1H STA Ondansetron HCl 4 mg 03/20/23 09:48 03/20/23 10:34 Ondansetron Hcl 4 Mg/2 Ml Vial IVPUSH 03/20/23 09:49 4 mg ONCE ONE Administration Medical Decision Making Medical Decision Making [facility] Narrative: 10:04 68-year-old male residential member with history of dysphagia, PICA, seizures, BPH, aspiration pneumonia, developmental nonverbal disorder, autism, chronic renal disease, hyperlipidemia, AV, hypertension, hiatal hernia, GERD, OCD, bipolar, who presents emergency department for evaluation of nausea, vomiting, fever, weakness with difficulty standing. Patient did have a documented fever of 100.6 degrees F at residential. Patient did receive his COVID-19 and RSV vaccination yesterday. In the emergency department vital signs revealed an elevated temperature of a 102.3 degrees F with an elevated heart rate of 102. Patient's lung exam did reveal rales at the bases. Differential diagnosis: Includes but not limited to viral syndrome, pneumonia, urinary tract infection, COVID-19, influenza, reaction to COVID-19 and RSV vaccine Following evaluation was ordered: CBC, CMP, lactic acid, lipase, PT/INR, PTT, COVID-19, influenza, RSV, urinalysis, blood cultures x2, chest x-ray one view Patient was treated with the following: IV insert, Zofran 4 mg IV, normal saline bolus 30 cc/kilogram (2298 mL), liquid acetaminophen 960 mg through G-tube Patient meets SIRS criteria based on temperature and heart rate, he was made a sepsis alert. 13:15 My interpretation patient's laboratory evaluation as follows: WBC was normal 10,800. H&H was at his baseline 11.3 and 34.5. Coags were normal. Bicarb elevated 30. BUN elevated 19 with a normal creatinine of 0.96. COVID-19, influenza were negative. Chest x-ray did not reveal any clear evidence for pneumonia which is reassuring. The patient's symptoms improve after treating his fever and receiving the fluid bolus. Patient had 1 systolic blood pressure of 80 for repeat blood pressures were in the 90 range which was the patient's baseline. Patient most likely has a viral syndrome and I did discuss this with the residential staff member. Patient will be discharged back to his residential with in order to give him Tylenol 325 mg tablets, 2 pills every 4 hours through the G-tube as needed for fever for the next 48 hour. Patient is to resume all his other medications and I advised them to cut his feet to a volume in half to 500 mL for 24 hours. Admission/Observation Consideration of admission/observation: Escalation of care including admission/observation considered Lab Data MDM Lab Attestation statement: I reviewed the patient's lab results. 03/20/23 10:31 03/20/23 10:31 Labs: Lab Results 03/20/23 03/20/23 03/20/23 Range/Units 10:17 10:30 10:31 WBC 10.8 (4.8-10.8) X10*3/uL RBC 3.56 L (4.60-5.80) X10*6/uL Hgb 11.3 L (14.0-18.0) g/dl Hct 34.5 L (42.0-52.0) % MCV 96.9 (80.0-98.0) fL MCH 31.7 (27.0-33.0) pg MCHC 32.8 (31.0-36.0) g/dl RDW 13.8 (11.0-16.0) % Plt Count 233 (160-400) X10*3/uL MPV 9.4 (9.4-12.4) fL Immature Gran % (Auto) Cancelled Neut % (Auto) Cancelled Lymph % (Auto) Cancelled [place] % (Auto) Cancelled Eos % (Auto) Cancelled Baso % (Auto) Cancelled Lymph # (Auto) Cancelled [place] # (Auto) Cancelled Eos # (Auto) Cancelled Baso # (Auto) Cancelled Abs Immat Gran (auto) Cancelled Absolute Neuts (auto) Cancelled Absolute Nucleated RBC 0.000 (0.0-0.012) X10*3/uL Nucleated RBC % (auto) 0.0 (0.0-0.2) /100WBC Neutrophils % (Manual) 83 H (45-73) % Band Neutrophils % 5 (3-5) % Lymphocytes % (Manual) 3 L (20-40) % Monocytes % (Manual) 9 (2-11) % Abs Neuts (Manual) 9.5 H (2.0-8.3) X10*3/uL Lymphocytes # (Manual) 0.3 L (1.2-4.9) X10*3/uL Monocytes # (Manual) 1.0 (0.1-1.2) X10*3/uL Toxic Vacuolation PRESENT Platelet Estimate NORMAL (NORMAL) Plt Morphology Comment NORMAL RBC Morphology NOTED Hypochromasia 1+ (5-14) /OIF Stomatocytes 1+ (5-14) /OIF PT 12.4 (11.1-13.3) SEC INR 1.0 (0.9-1.1) APTT 29.7 (26.0-36.8) SEC Sodium 140 (135-145) mmol/L Potassium 4.0 (3.3-5.1) mmol/L Chloride 102 (96-108) mmol/L Carbon Dioxide 30 H (22-29) mmol/L Anion Gap 12 (12-20) BUN 19 H (9-16) mg/dL Creatinine 0.96 (0.5-1.4) mg/dL Estim Creat Clear Calc 67.4 Estimated GFR > 60 Random Glucose 99 (60-115) mg/dL Lactic Acid 1.8 (0.5-2.0) mmol/L Calcium 9.3 (8.4-10.2) mg/dL Total Bilirubin 0.3 (0.0-1.0) mg/dL AST 20 (5-37) U/L ALT 8 (0-40) U/L Alkaline Phosphatase 84 (39-117) U/L Total Protein 8.6 H (6.5-8.0) g/dL Albumin 3.4 L (3.5-5.0) g/dL Lipase 16 (8-78) U/L Influenza Type A (PCR) NEGATIVE (Negative) Influenza Type B (PCR) NEGATIVE (Negative) RSV RNA Qual (PCR) NEGATIVE (Negative) SARS-CoV-2 RNA (RT-PCR) NEGATIVE (Negative) Independent Interpretation I performed an independent interpretation of an: Plain X-Ray Interpretation: My interpretation patient's one-view chest x-ray is as follows: No acute infiltrate Radiology Impression Discussion of test interpretation with radiology: I have reviewed the radiologist's reading. Radiologist Impression: EXAMINATION: XR CHEST CLINICAL INFORMATION: Fever and vomiting. COMPARISON: 11/14/2022 TECHNIQUE: Frontal view of the chest was obtained. FINDINGS: The lungs are moderately expanded. No focal consolidation. No pleural effusion. Cardiac silhouette is unchanged. Redemonstrated is gaseous distention of bowel in the upper abdomen. IMPRESSION: Gaseous distention of bowel in the upper abdomen. This is incompletely evaluated on the current study. Dictated By: Deborah Morales MD Independent Historian Clinical information obtained from an independent historian. History obtained from or confirmed by: Other (detention members) External Record Review External record reviewed: Outpatient record Discharge Plan Discharge Clinical Impression: Viral syndrome, Fever Patient Disposition: Home, Self-Care Additional Instructions: His blood work was normal pain. His chest x-ray did not reveal evidence for pneumonia this time. Blood cultures are pending. Give him Tylenol 325 mg pills, 2 pills crushed up and given through the G-tube every 4 hours as needed for fever for the next 48 hours. Resume all his medications tongue return to the residential. Cut his tube feeding half to 500 mL for today only and then resume normal volume. Follow-up with your doctor in 2 days. Please return to the emergency department if your symptoms get worse or if you develop any symptoms that are concerning to you. Prescriptions: No Action finasteride 5 mg tablet 5 mg PO DAILY 90 Days Qty: 90 1RF bacitracin zinc 500 unit/gram ointment 1 appl topical BID PRN (Reason: Wound Care) acetaminophen 325 mg tablet 650 mg feeding tube Q6H PRN (Reason: Pain) Qty: 60 0RF dextromethorphan-guaifenesin 10-100 mg/5 mL Liquid 10 ml feeding tube Q6H PRN (Reason: Cough) Qty: 500 0RF olanzapine 10 mg tablet 10 mg feeding tube DAILY Qty: 60 0RF citalopram 20 mg tablet 60 mg feeding tube DAILY Qty: 60 0RF magnesium hydroxide [Milk of Magnesia] 400 mg/5 mL suspension 30 ml feeding tube DAILY PRN (Reason: Constipation) Qty: 355 0RF valproic acid (as sodium salt) 250 mg/5 mL solution 1,000 mg feeding tube BID Qty: 473 0RF simethicone [Gas Relief (simethicone)] 40 mg/0.6 mL drops,suspension 40 mg feeding tube TID@0800,1600,1999 Qty: 30 0RF polyethylene glycol 3350 17 gram/dose powder 17 g feeding tube BID Qty: 510 0RF Rx Instructions: hold if more than 3 BM's in 1 day olanzapine 20 mg tablet 20 mg feeding tube BEDTIME Qty: 30 0RF loratadine 10 mg tablet 10 mg feeding tube DAILY Qty: 60 0RF omeprazole 20 mg capsule,delayed release(DR/EC) 40 mg feeding tube DAILY@0630 Rx Instructions: needs to be given with water juice or snack docusate sodium 60 mg/15 mL syrup 100 mg feeding tube BEDTIME Best Fiber 3 gram/3.5 gram powder 1 packet PO BID@0800,1600 Rx Instructions: mix into at least 4 oz water or juice before administering amoxicillin-pot clavulanate 400-57 mg/5 mL suspension for reconstitution 10 ml PO BID Qty: 100 0RF citalopram 40 mg tablet 40 mg PO DAILY nystatin 100,000 unit/gram powder 1 appl topical BID clonazepam 0.5 mg tablet 0.5 mg feeding tube ONCE 7 Days Qty: 1 0RF Rx Instructions: Take via G-tube 2 hours prior to office procedure for hydrocele aspiration (DME) #18 MACKENZIE gastrostomy feeding #18 [place] See Rx Instructions .Route .MEDSUPPLY Qty: 1 0RF Rx Instructions: Every 6 months
[2023-03-20] MEDS: Acetaminophen Oral Liquid 650 MG/20.3 ML SOLUTION 960 MG G-TUBE (10:33)
[2023-03-20] MEDS: ondansetron HCL 4 MG/2 ML VIAL IVPUSH (10:34)
[2023-03-20 10:37] LABS: Hematocrit 34.5 % (42.0-52.0); Hemoglobin 11.3 g/dl (14.0-18.0); Mean Corpuscular HGB Conc 32.8 g/dl (31.0-36.0); Mean Corpuscular Hemoglobin 31.7 pg (27.0-33.0); Mean Corpuscular Volume 96.9 fL (80.0-98.0); Mean Platelet Volume 9.4 fL (9.4-12.4); Platelet Count 233 X10*3/uL (160-400); Red Blood Count 3.56 X10*6/uL (4.60-5.80); Red Cell Distribution Width 13.8 % (11.0-16.0); White Blood Count 10.8 X10*3/uL (4.8-10.8)
[2023-03-20 10:48] LABS: Prothrombin Time 12.4 SEC (11.1-13.3)
[2023-03-20 10:48] LABS: Lactic Acid 1.8 mmol/L (0.5-2.0)
[2023-03-20 10:51] LABS: Partial Thromboplastin Time 29.7 SEC (26.0-36.8)
[2023-03-20 10:52] LABS: Alanine Aminotransferase 8 U/L (0-40); Albumin Level 3.4 g/dL (3.5-5.0); Alkaline Phosphatase 84 U/L (39-117); Anion Gap 12 (12-20); Aspartate Amino Transferase 20 U/L (5-37); Bilirubin Total 0.3 mg/dL (0.0-1.0); Blood Urea Nitrogen 19 mg/dL (9-16); Calcium 9.3 mg/dL (8.4-10.2); Carbon Dioxide 30 mmol/L (22-29); Chloride 102 mmol/L (96-108); Creatinine Clr Calc Pharmacy 67.4; Estimated Glomerular Filt Rate > 60; Glucose Random 99 mg/dL (60-115); Lipase 16 U/L (8-78); Sodium 140 mmol/L (135-145); Total Protein 8.6 g/dL (6.5-8.0)
[2023-03-20 11:05] LABS: Band Neutrophils Percent 5 % (3-5); Lymphocytes Absolute Manual 0.3 X10*3/uL (1.2-4.9); Lymphocytes Percent Manual 3 % (20-40); Monocytes Percent Manual 9 % (2-11); Neutrophils Absolute Manual 9.5 X10*3/uL (2.0-8.3); Neutrophils Percent Manual 83 % (45-73)
[2023-03-20 11:07] LABS: Hypochromasia 1+ (5-14) /OIF; Platelet Estimate NORMAL (NORMAL); Platelet Morphology Comment NORMAL; RBC Morphology NOTED; Stomatocytes 1+ (5-14) /OIF; Toxic Vacuolation PRESENT
[2023-03-20 11:08] LABS: Influenza A PCR NEGATIVE (Negative); Influenza B PCR NEGATIVE (Negative); Resp Syncy Virus RNA Qual PCR NEGATIVE (Negative); SARS COV2 PCR INHOUSE NEGATIVE (Negative)
--- NOTE | 2023-03-20 11:59 | PC.NURSE ---
patient was able to stand with 2 assist and even take 3 steps. No antibiotic needed per attending. Lactic was 1.8 and no need for another Lactic at this time.
[2023-03-20 12:01] VITALS: TEMP 36.1
--- NOTE | 2023-03-20 12:04 | PC.NURSE ---
Urine will not be collected per attending, patient is incontinent
[2023-03-20 12:47] VITALS: BP 95/45; PULSE 84; RESP 18; TEMP 36.4; O2SAT 96
[2023-03-20 13:40] VITALS: BP 93/53; PULSE 81
[2023-03-20 15:57] VITALS: BP 110/42; PULSE 84; RESP 16; TEMP 36.3; O2SAT 97
--- NOTE | 2023-03-20 17:08 | PC.NURSE ---
No Tylenol is needed with discharge as patient does not have a temp. Continue with the same feeding schedule. This was all verified with attending
== END 2023-03-20 17:09 | disposition home or self-care (01) ==
PROVIDERS: Emergency Provider Emergency Medicine Emergency Medical Services; PCP Internal Medicine
DX: B34.9 Viral infection, unspecified (principal); R50.9 Fever, unspecified; Z11.52 Encounter for screening for COVID-19; Z20.828 Contact with and (suspected) exposure to other viral communicable diseases; I10 Essential (primary) hypertension; E78.5 Hyperlipidemia, unspecified; F50.89 Other specified eating disorder; Z68.29 Body mass index [BMI] 29.0-29.9, adult
CPT/HCPCS: 0241U; 71045; 80053; 83605; 83690; 85007; 85025; 85027; 85610; 85730; 87040; 96361; 96374; 99284; J2405

== ENCOUNTER 2023-04-01 06:18 | Inpatient (IN) | payer MEDICARE, MEDICAID, SELFPAY ==
[2023-04-01] VITALS (21 sets, daily range): BP systolic 85–140; BP diastolic 42–80; PULSE 61–120; RESP 12–20; TEMP 35.8–38.6; O2SAT 92–100; BMI 22.3
--- NOTE | 2023-04-01 | ECG_ITS ---
Test Reason : WEAKNESS Blood Pressure : / mmHG Vent. Rate : 099 BPM Atrial Rate : 099 BPM P-R Int : 140 ms QRS Dur : 074 ms QT Int : 370 ms P-R-T Axes : 053 028 051 degrees QTc Int : 474 ms Normal sinus rhythm Nonspecific ST abnormality Abnormal ECG When compared with ECG of 14-NOV-2022 09:24, No significant change was found Referred By: Generic ED Physician Electronically Signed By:Caleb Colin
--- NOTE | ~2023-04-01 | CT_ITS ---
EXAMINATION: CT ABDOMEN AND PELVIS WITHOUT CONTRAST CLINICAL INFORMATION: Rule out obstruction. COMPARISON: CT abdomen and pelvis 04/01/2023. TECHNIQUE: Multidetector volumetric imaging was performed from the superior aspect of the liver through the pubic symphysis. Sagittal and coronal reformatted images were obtained on the technologist's workstation. This CT examination was performed using dose optimization techniques as appropriate, variously including the following: *Automated exposure control *Adjustment of mA and/or kV according to patient size (this includes techniques or standardized protocols for targeted exams where dose is matched to indication/reason for exam; i.e. extremities or head) *Use of iterative reconstruction technique DLP: 921 mGy-cm FINDINGS: LUNG BASES: There is minimal bibasilar atelectasis and/or small pleural effusion. LIVER, GALLBLADDER, AND BILIARY TREE: The liver is normal in size, shape, and attenuation. No focal hepatic lesion or biliary ductal dilatation is present. The gallbladder is unremarkable with no evidence of radiopaque gallstones, gallbladder wall thickening, or obvious pericholecystic inflammatory changes. PANCREAS: The pancreas is unremarkable. SPLEEN: Unremarkable. ADRENAL GLANDS: Unremarkable. KIDNEYS AND URETERS: The kidneys are normal in size, shape, and attenuation. There are punctate small calyceal calculi suspected lower pole right kidney on axial image 38/2. No caliectasis or hydronephrosis seen on either side. No perinephric stranding. BLADDER: Unremarkable. GASTROINTESTINAL TRACT: There is a G-tube in stomach, stable. There is oral contrast throughout mildly dilated small bowel loops with air-fluid levels. There is prior partial or total colectomy The sigmoid to small bowel anastomosis in the upper pelvis is widely patent. Mural thickening seen involving the sigmoid colon and rectum has resolved with moderate fluid seen in this segment. No free air or free fluid. ABDOMINAL WALL: No significant hernia is appreciated. LYMPH NODES: There are several small 7 mm or less lymph nodes seen in the mesentery just at the level of surgical anastomosis. VASCULAR: Unremarkable. PELVIC VISCERA: Unremarkable. OSSEOUS STRUCTURES: No aggressive lytic or sclerotic process seen. CT/CT abdomen pelvis wo IV con IMPRESSION: 1.Mildly dilated small bowel loops with air-fluid levels. There is a sigmoid to small bowel anastomosis in the upper pelvis which is widely patent. Mural thickening seen in the sigmoid colon and rectum has resolved. 2. G-tube in the stomach is stable. 3. Suspect small calyceal calculi lower pole right kidney without caliectasis or hydronephrosis. Similar findings were seen on earlier exam 4, Minimal bibasilar atelectasis and/or small pleural effusion. Fleischner guidelines were followed.
--- NOTE | ~2023-04-01 | XR_ITS ---
EXAMINATION: XR CHEST CLINICAL INFORMATION: Fever. COMPARISON: 03/20/2023. TECHNIQUE: Portable AP view of the chest was obtained. FINDINGS: Bowel appears interposed between the liver and diaphragm, a normal variant, similar compared with 03/20/2023. Evaluation for degree of distention is limited on this chest x-ray. Recommend clinical correlation. No focal infiltrate, effusion, or pneumothorax is seen. Cardiovascular structures, mediastinum, bones, and soft tissues appear unremarkable. XR/XR chest 1V IMPRESSION: No significant radiographic change compared with 03/20/2023, as above. Please see above.
--- NOTE | ~2023-04-01 | CT_ITS ---
EXAMINATION: CT ABDOMEN AND PELVIS WITHOUT CONTRAST CLINICAL INFORMATION: Pain. Concern for sigmoid volvulus. COMPARISON: None available. TECHNIQUE: Multidetector volumetric imaging was performed from the superior aspect of the liver through the pubic symphysis. Sagittal and coronal reformatted images were obtained on the technologist's workstation. This CT examination was performed using dose optimization techniques as appropriate, variously including the following: *Automated exposure control *Adjustment of mA and/or kV according to patient size (this includes techniques or standardized protocols for targeted exams where dose is matched to indication/reason for exam; i.e. extremities or head) *Use of iterative reconstruction technique DLP: 676 mGy-cm FINDINGS: LUNG BASES: The visualized lung bases are unremarkable. LIVER, GALLBLADDER, AND BILIARY TREE: The liver is normal in size, shape, and attenuation. No focal hepatic lesion or biliary ductal dilatation is present. The gallbladder is unremarkable with no evidence of radiopaque gallstones, gallbladder wall thickening, or obvious pericholecystic inflammatory changes. PANCREAS: Unremarkable. SPLEEN: Unremarkable. ADRENAL GLANDS: Unremarkable. KIDNEYS AND URETERS: The kidneys are normal in size, shape, and attenuation. No hydronephrosis, hydroureter, or calculi seen. No perinephric stranding. BLADDER: Unremarkable. GASTROINTESTINAL TRACT: A gastric tube is noted in place. There is rectosigmoid thickening. There is no evidence for volvulus. ABDOMINAL WALL: No significant hernia is appreciated. LYMPH NODES: Normal. VASCULAR: Unremarkable. PELVIC VISCERA: Unremarkable. OSSEOUS STRUCTURES: Unremarkable. CT/CT abdomen pelvis wo IV con IMPRESSION: Rectosigmoid thickening consistent with a proctocolitis. No evidence for volvulus. Fleischner guidelines were followed.
--- NOTE | ~2023-04-01 | CT_ITS ---
EXAMINATION: CT CHEST WITHOUT IV CONTRAST CT ABDOMEN AND PELVIS WITHOUT IV CONTRAST CLINICAL INFORMATION: Abdominal distention, fever and cough. Question aspiration. COMPARISON: CXR from 01/30/2024. Chest CT from 01/04/2022. Abdomen CT from 12/09/2019. TECHNIQUE: Multidetector CT imaging examination of the chest, abdomen and pelvis was performed . Axial images are displayed at 0.6 mm and 5 mm slice thickness. Coronal and sagittal reformatted images were generated at the technologist's workstation and submitted for review. This CT examination was performed using dose optimization techniques as appropriate, variously including the following: *Automated exposure control *Adjustment of mA and/or kV according to patient size (this includes techniques or standardized protocols for targeted exams where dose is matched to indication/reason for exam; i.e. extremities or head) *Use of iterative reconstruction technique DLP: 1001 mGy-cm FINDINGS: CHEST - LUNGS AND PLEURA: Mucus/secretions layer along the posterior tracheal wall. Respiratory motion on these images through the chest. Mild atelectasis in dependent aspect of each lung. Tree-in-bud opacities within the right lung are overall improved compared 01/04/2022. Also, there are decreased scattered nodular and/or airspace opacities compared to the prior chest CT. A 0.6 cm nodule in the anterior right upper lobe is presumably related to the infectious or inflammatory disease (image 152, series 8). A 0.4 cm subpleural nodule in the right lower lobe has not significantly changed in size (image 296, series 8). The opacity in the posterior right lower lobe is nonspecific and could represent atelectasis or airspace disease (images [id number], series 8). There is decreased opacity in the right lower lobe compared 01/04/2022. CARDIOVASCULAR: The heart size is normal. No pericardial effusion. Mild atherosclerosis of the thoracic aorta without aneurysm. Pulmonary arteries are normal in caliber. There is atherosclerotic calcification of the left coronary/left anterior descending coronary. MEDIASTINUM/LOWER NECK: No evidence of mediastinal mass. The esophagus has normal wall thickness. Thyroid gland is unremarkable. LYMPHATICS: No pathologic sized axillary, hilar or mediastinal lymph nodes. CHEST WALL/BONES OF THORAX: Mild gynecomastia. There is hyperkyphosis of the degenerated thoracic spine. No acute or suspicious osseous abnormality within the thorax. ABDOMEN AND PELVIS - HEPATOBILIARY: Liver and gallbladder are unremarkable. No dilated bile ducts. PANCREAS: No edema, mass or pancreatic ductal dilatation. SPLEEN: Normal. ADRENAL GLANDS: Normal. KIDNEYS AND URETERS: Kidneys are normal in size and attenuation. There appear to be punctate calculi or faintly visible vascular calcifications and lower pole of right kidney. No evidence of any large renal stones, hydronephrosis or perinephric fluid collection. BOWEL AND PERITONEUM: The gastrostomy tube is in satisfactory position. The evaluation of the gastrointestinal tract is somewhat limited on this examination performed without use of oral or intravenous contrast. No dilated small bowel loops. Prior partial colectomy with suture seen at the sigmoid colon. There is an area of clockwise twisting of some of the mesenteric fat within the right abdomen in relation to the descending colon which has changed in its position is compared to 12/09/2019. The colon is collapsed in this region of twisting (images 36-45, series 6; coronal reformatted images 28-34, series 13). There is subtle haziness of some of the mesenteric fat. There appears to be a chronic gaseous distention of the colon which could be a manifestation of ileus or pseudoobstruction. No focal colonic wall thickening or overt mass. No pneumatosis intestinalis or pneumoperitoneum. There is a temperature probe within the rectum. ABDOMINAL WALL: Unremarkable. VESSELS: Abdominal aorta is normal in size. LYMPH NODES: No pathologic sized lymph nodes in the abdomen or pelvis. No inguinal lymphadenopathy. BLADDER AND PELVIC VISCERA: Urinary bladder is well distended and has normal wall thickness. No bladder diverticulum or stone. Prostate gland is unremarkable. No pelvic free fluid. MUSCULOSKELETAL: No acute or suspicious osseous abnormality. CT/CT abdomen pelvis wo IV con IMPRESSION: * Overall improvement in right lung disease compared to 01/04/2022. There is decreased tree-in-bud nodularity in the right lung and significant decrease in atelectasis or airspace disease in posterior right lower lobe. The tree-in-bud nodularity could be due to recurrent aspiration or infectious bronchiolitis. * 0.6 cm nodule in the anterior right upper lobe is nonspecific but is likely related to infectious or inflammatory disease. Based on Fleischner Society guidelines, recommend CT follow-up at 6-12 months. Then, if persistent and stable, consider CT at 18-24 months in a low risk patient or obtain CT at 18-24 months if in a high risk patient. * Chronic gaseous distention of the colon could reflect presence of ileus/pseudoobstruction. There is a new clockwise twisting of some of the mesentery along the descending colon. This has the appearance of a partial volvulus and there is subtle haziness of mesenteric fat in this region of mesenteric twisting. There is no pneumatosis intestinalis or pneumoperitoneum. The critical test result was discussed with Mayte Novoa at 10:30 AM on 04/01/2023 and it was ascertained that the content and the importance of the findings was understood at the time of the direct communication.
--- NOTE | ~2023-04-01 | XR_ITS ---
EXAMINATION: XR ABDOMEN KUB CLINICAL INDICATION: Rule out obstruction, volvulus. History of partial colectomy with suture at the sigmoid colon. COMPARISON: CT abdomen and pelvis 04/01/2023 and 04/01/2023. KUB of 01/05/2022. TECHNIQUE: 4 AP views of the abdomen. FINDINGS: Multiple distended air-filled loops of bowel are present predominantly in the mid and upper abdomen. There is a paucity of bowel gas in the expected location of the rectosigmoid colon and descending colon. Appearance is concerning for early or partial obstruction. CT scan recommended for further evaluation. XR/XR KUB IMPRESSION: Multiple distended air-filled loops of bowel are present predominantly in the mid and upper abdomen. There is a paucity of bowel gas in the expected location of the rectosigmoid colon and descending colon. Appearance is concerning for early or partial obstruction. CT scan recommended for further evaluation. This study was presented April 03, 2023 for interpretation. PSA staff will provide results to referring provider at this time.
--- NOTE | 2023-04-01 06:39 | ED_ITS ---
HPI - General Adult General Chief complaint: Altered Mental Status Stated complaint: SEPSIS ALERT Time Seen by Provider: 04/01/23 06:33 Source: EMS, RN notes reviewed and old records reviewed Mode of arrival: other History of Present Illness HPI narrative: 68-year-old male history of dysphagia, PICA, seizures, BPH, aspiration pneumonia, developmental nonverbal disorder, autism, chronic renal disease, hyperlipidemia, AV, hypertension, hiatal hernia, GERD, OCD, bipolar, who presenting to the ED from [facility] for fever, shakiness, and increased lethargy/weakness noted last night. No reported medications given. No reported falls. History obtained from correction staff reports cough, denies other associated symptoms. Onset (ago): day(s) Related Data Home Medications Medication Instructions Recorded Confirmed bacitracin zinc 500 unit/gram 1 appl topical BID PRN Wound Care 12/24/21 12/18/22 topical ointment docusate sodium 60 mg/15 mL oral 100 mg feeding tube BEDTIME 11/10/22 12/18/22 syrup omeprazole 20 mg capsule,delayed 40 mg feeding tube DAILY@0630 11/10/22 12/18/22 release wheat dextrin 3 gram/3.5 gram oral 1 packet PO BID@0800,1600 11/10/22 12/18/22 powder (Best Fiber) citalopram 40 mg tablet 40 mg PO DAILY 12/18/22 12/18/22 nystatin 100,000 unit/gram topical 1 appl topical BID 12/18/22 12/18/22 powder Previous Rx's Medication Instructions Recorded acetaminophen 325 mg tablet 650 mg (2 x 325 mg) feeding tube 01/16/22 Q6H PRN Pain #60 tabs citalopram 20 mg tablet 60 mg (3 x 20 mg) feeding tube 01/16/22 DAILY #60 tabs dextromethorphan-guaifenesin 10 10 ml feeding tube Q6H PRN Cough 01/16/22 mg-100 mg/5 mL oral liquid #500 mL loratadine 10 mg tablet 10 mg feeding tube DAILY #60 tabs 01/16/22 magnesium hydroxide 400 mg/5 mL 30 ml feeding tube DAILY PRN 01/16/22 oral suspension (Milk of Magnesia) Constipation #355 mL olanzapine 10 mg tablet 10 mg feeding tube DAILY #60 tabs 01/16/22 olanzapine 20 mg tablet 20 mg feeding tube BEDTIME #30 tabs 01/16/22 polyethylene glycol 3350 17 17 g feeding tube BID #510 grams 01/16/22 gram/dose oral powder simethicone 40 mg/0.6 mL oral 40 mg (0.6 mL) feeding tube 01/16/22 drops,suspension (Gas Relief TID@0800,1600,2000 #30 mL (simethicone)) valproic acid (as sodium salt) 250 1,000 mg (20 mL) feeding tube BID 01/16/22 mg/5 mL oral solution #473 mL #18 MACKENZIE gastrostomy feeding #1 ea 06/20/22 amoxicillin 400 mg-potassium 10 ml PO BID #100 mL 11/13/22 clavulanate 57 mg/5 mL oral suspension clonazepam 0.5 mg tablet 0.5 mg feeding tube ONCE 7 days #1 12/18/22 tab finasteride 5 mg tablet 5 mg PO DAILY 90 days #90 tabs 02/08/23 Allergies Allergy/AdvReac Type Severity Reaction Status Date / Time haloperidol [From HALDOL] AdvReac Unknown UNKNOWN Verified 12/18/22 09:51 metoclopramide [From REGLAN] AdvReac Unknown UNKNOWN Verified 12/18/22 09:51 Review of Systems 2 Review of Systems: History limited to patient's baseline mental status Yes all other systems are reviewed and are negative Constitutional: Constitutional: Reports as per [facility] Past Medical History Attestation statement: The following information was validated with the patient. Source: old records reviewed Medical History Dysphagia Pica Seizures BPH (benign prostatic hyperplasia) Dysphagia Pneumonia Mentally challenged Developmental non-verbal disorder Autism Hydrocele Chronic renal disease Hyperlipemia Anemia Hypertension Hiatal hernia GERD (gastroesophageal reflux disease) OCD (obsessive compulsive disorder) Bipolar 1 disorder Surgical History History of colectomy H/O exploratory laparotomy Social History Social History Household Members: Other Household Members Other:: [facility], [facility] Housing: Other Housing Other:: as above Do you presently have visiting nurse or other home services: Yes (staffing 24 hours, not nursing, administer meds and TF and ADLs) Unable to assess alcohol history related to: Unable to respond Alcohol intake: never Comment: correction staff in room Patient Tobacco Use Status: Never used Tobacco Smoked in Last 30 Days: No Use of substances other than those prescribed or required for medical reasons: No Advance Directives: No Advance Directives Information Provided: No Advance Directives Date on File: 12/24/21 service: No Current occupational status: disabled Physical Exam ED Vital Signs: Vital Signs - 24 hr 04/01/23 06:20 04/01/23 07:15 04/01/23 08:19 Temperature 101.5 F H 99.5 F 98.1 F Pulse Rate 114 H 91 Respiratory Rate 20 17 Blood Pressure 87/56 L 98/42 L Pulse Oximetry 92 98 Oxygen Delivery Method Room Air Nasal Cannula Oxygen Flow Rate 2 04/01/23 08:42 04/01/23 09:32 04/01/23 09:54 Temperature 97.5 F 97.0 F 97.0 F Pulse Rate 73 81 73 Respiratory Rate 16 13 15 Blood Pressure 85/47 L 107/56 L 97/56 L Pulse Oximetry 98 100 100 Oxygen Delivery Method Nasal Cannula Nasal Cannula Nasal Cannula Oxygen Flow Rate 2 2 2 04/01/23 10:30 04/01/23 12:20 Temperature 96.6 F L 96.4 F L Pulse Rate 64 72 Respiratory Rate 14 12 Blood Pressure 93/52 L 95/56 L Pulse Oximetry 100 100 Oxygen Delivery Method Nasal Cannula Nasal Cannula Oxygen Flow Rate 2 2 BMI result Body Mass Index 22.3 Const General: cooperative, no acute distress and alert HENFL Head: Yes normal to inspection and Yes atraumatic Ears: hearing grossly normal bilaterally General nose exam: Normal external nose present Face and sinus: Yes normal facial exam Eyes General: appearance normal, both eyes and all related structures EOM: EOMs intact bilaterally Neck Neck: Yes normal visual inspection and Yes no meningeal signs Resp Effort & Inspection: normal respiratory effort and no respiratory distress Cardio Rate: regular rate Heart sounds: S1 normal heart sound present and S2 normal heart sound present GI Inspection: Yes normal to inspection Palpation (GI): Soft to palpation, nontender, no guarding and not rigid Skin Rashes: no rashes Wounds: no wounds Neuro General: tone normal and no meningeal signs Cranial nerves: Yes CN's II-XII intact bilaterally Gait exam (Neuro): Normal gait present Extrem Other: 1+ bilateral LE pitting edema General: Yes normal to inspection Course Course Course Narrative: -0819--leukocytosis of 14.9. H/H at patient's baseline. BUN acute on chronically elevated. Troponin 6.5 > will obtain 3 hour repeat -COVID and flu negative XR chest 1V IMPRESSION: No significant radiographic change compared with 03/20/2023, as above. Please see above. > will obtain CT chest and abdomen/pelvis for further eval -patient persistently hypotensive > albumin ordered, will continue to monitor and re-evaluate -repeat troponin without rise, CO unlikely 1058--CT chest wo IV con/CT abdomen pelvis wo IV con IMPRESSION: * Overall improvement in right lung disease compared to 01/04/2022. There is decreased tree-in-bud nodularity in the right lung and significant decrease in atelectasis or airspace disease in posterior right lower lobe. The tree-in-bud nodularity could be due to recurrent aspiration or infectious bronchiolitis. * 0.6 cm nodule in the anterior right upper lobe is nonspecific but is likely related to infectious or inflammatory disease. Based on Fleischner Society guidelines, recommend CT follow-up at 6-12 months. Then, if persistent and stable, consider CT at 18-24 months in a low risk patient or obtain CT at 18-24 months if in a high risk patient. * Chronic gaseous distention of the colon could reflect presence of ileus/pseudoobstruction. There is a new clockwise twisting of some of the mesentery along the descending colon. This has the appearance of a partial volvulus and there is subtle haziness of mesenteric fat in this region of mesenteric twisting. There is no pneumatosis intestinalis or pneumoperitoneum. > will consult General Surgery Dr. Silver who recommended Gastrografin enema -1218--blood pressure improving with albumin. Plan to admit to hospitalist for further management Medications Administered Discontinued Medications Generic Name Dose Route Start Last Admin Trade Name Freq PRN Reason Stop Dose Admin Acetaminophen 650 mg 04/01/23 06:42 04/01/23 06:53 Acetaminophen Supp 650 Mg Supp.Rect AK 04/01/23 06:43 650 mg ONCE ONE Administration Sodium Chloride 1,992 mls @ 1,992 mls/hr 04/01/23 06:42 04/01/23 09:32 Ns 30 ml/kg infuse over 1 hr (1992 ml) 04/01/23 07:41 Infused IV Infusion .Q1H STA Piperacillin Sod/Tazobactam 50 mls @ 100 mls/hr 04/01/23 06:44 04/01/23 08:19 Sod 3.375 gm/ Sodium Chloride IV 04/01/23 07:13 Infused ONCE ONE Infusion Albumin Human 100 mls @ 133.333 mls/hr 04/01/23 10:30 04/01/23 11:39 Kedbumin 25 % IV 04/01/23 12:14 133.33 mls/hr Q1H RODOLFO Administration Medical Decision Making Medical Decision Making MDM Narrative: 68-year-old male history of dysphagia, PICA, seizures, BPH, aspiration pneumonia, developmental nonverbal disorder, autism, chronic renal disease, HLD, AV, HTN, hiatal hernia, GERD, OCD, bipolar, who presenting to the ED from [facility] for fever, shakiness, and increased lethargy/weakness noted last night. On exam febrile 101.5, tachycardic likely from fever, hypotensive, nonverbal. Concern for viral illness vs infectious etiology including aspiration pneumonia vs UTI. Of note patient was evaluated in our ED on 03/20/2023 for similar symptoms, had negative workup at that time and was discharged back to correction Plan: EKG, labs, UA, CXR, viral testing, IVF, empiric Zosyn, rectal Tylenol, re-evaluate. Sepsis protocol initiated Please refer to course for remaining clinical decision making, interpretation of labs/imaging results, and discussions with consultants and/or family members. Differential Diagnosis Differential Diagnoses: The differential diagnosis associated with the presentation includes As above Admission/Observation Consideration of admission/observation: Escalation of care including admission/observation considered Lab Data [facility] Lab Attestation statement: I reviewed the patient's lab results. 04/01/23 06:43 04/01/23 06:43 Labs: Lab Results 04/01/23 04/01/23 04/01/23 Range/Units 06:43 06:46 07:12 WBC 14.9 H (4.8-10.8) X10*3/uL RBC 3.35 L (4.60-5.80) X10*6/uL Hgb 10.6 L (14.0-18.0) g/dl Hct 32.2 L (42.0-52.0) % MCV 96.1 (80.0-98.0) fL MCH 31.6 (27.0-33.0) pg MCHC 32.9 (31.0-36.0) g/dl RDW 14.1 (11.0-16.0) % Plt Count 231 (160-400) X10*3/uL MPV 9.6 (9.4-12.4) fL Immature Gran % (Auto) 0.4 (0.0-0.4) % Neut % (Auto) 91.2 H (45-73) % Lymph % (Auto) 2.7 L (20-40) % [place] % (Auto) 5.6 (2-11) % Eos % (Auto) 0.0 (0-4) % Baso % (Auto) 0.1 (0-2) % Lymph # (Auto) 0.4 L (1.2-4.9) X10*3/uL [place] # (Auto) 0.8 (0.1-1.2) X10*3/uL Eos # (Auto) 0.0 (0.0-0.4) X10*3/uL Baso # (Auto) 0.0 (0.0-0.2) X10*3/uL Abs Immat Gran (auto) 0.06 H (0.00-0.03) X10*3/uL Absolute Neuts (auto) 13.6 H (2.0-8.3) x10*3/uL Absolute Nucleated RBC 0.000 (0.0-0.012) X10*3/uL Nucleated RBC % (auto) 0.0 (0.0-0.2) /100WBC Smear Tech's Comments VERIFIED Sodium 141 (135-145) mmol/L Potassium 3.9 (3.3-5.1) mmol/L Chloride 103 (96-108) mmol/L Carbon Dioxide 28 (22-29) mmol/L Anion Gap 14 (12-20) BUN 22 H (9-16) mg/dL Creatinine 0.91 (0.5-1.4) mg/dL Estim Creat Clear Calc 72.9 Estimated GFR > 60 POC Glucose 87 (60-115) mg/dL Random Glucose 91 (60-115) mg/dL Lactic Acid 1.9 (0.5-2.0) mmol/L Calcium 8.8 (8.4-10.2) mg/dL Magnesium 2.0 (1.6-2.6) mg/dL Total Bilirubin 0.2 (0.0-1.0) mg/dL Direct Bilirubin < 0.2 (0.0-0.5) mg/dL AST 20 (5-37) U/L ALT 9 (0-40) U/L Alkaline Phosphatase 74 (39-117) U/L Ammonia 42 (13-55) umol/L Troponin I High Sens 6.5 (<3.5-35.0) ng/L B-Natriuretic Peptide 63 (<100) pg/mL Total Protein 8.3 H (6.5-8.0) g/dL Albumin 3.2 L (3.5-5.0) g/dL Lipase 15 (8-78) U/L Urine Color Urine Appearance Urine pH (5.0-9.0) Ur Specific [place] (1.005-1.025) Urine Protein (Neg-Trace) mg/dL Urine Glucose (UA) (Negative) mg/dL Urine Ketones (Negative) mg/dL Urine Blood (Negative) Urine Nitrite (Negative) Ur Leukocyte Esterase (Negative) COVID-19 (SUNNI) Negative (Negative) COVID-19 Clin Com See Note Influenza Type A (WARREN) Negative (Negative) Influenza Type B (WARREN) Negative (Negative) Influenza A & B Note See Note 04/01/23 04/01/23 Range/Units 10:07 11:55 WBC (4.8-10.8) X10*3/uL RBC (4.60-5.80) X10*6/uL Hgb (14.0-18.0) g/dl Hct (42.0-52.0) % MCV (80.0-98.0) fL MCH (27.0-33.0) pg MCHC (31.0-36.0) g/dl RDW (11.0-16.0) % Plt Count (160-400) X10*3/uL MPV (9.4-12.4) fL Immature Gran % (Auto) (0.0-0.4) % Neut % (Auto) (45-73) % Lymph % (Auto) (20-40) % [place] % (Auto) (2-11) % Eos % (Auto) (0-4) % Baso % (Auto) (0-2) % Lymph # (Auto) (1.2-4.9) X10*3/uL [place] # (Auto) (0.1-1.2) X10*3/uL Eos # (Auto) (0.0-0.4) X10*3/uL Baso # (Auto) (0.0-0.2) X10*3/uL Abs Immat Gran (auto) (0.00-0.03) X10*3/uL Absolute Neuts (auto) (2.0-8.3) x10*3/uL Absolute Nucleated RBC (0.0-0.012) X10*3/uL Nucleated RBC % (auto) (0.0-0.2) /100WBC Smear Tech's Comments Sodium (135-145) mmol/L Potassium (3.3-5.1) mmol/L Chloride (96-108) mmol/L Carbon Dioxide (22-29) mmol/L Anion Gap (12-20) BUN (9-16) mg/dL Creatinine (0.5-1.4) mg/dL Estim Creat Clear Calc Estimated GFR POC Glucose (60-115) mg/dL Random Glucose (60-115) mg/dL Lactic Acid (0.5-2.0) mmol/L Calcium (8.4-10.2) mg/dL Magnesium (1.6-2.6) mg/dL Total Bilirubin (0.0-1.0) mg/dL Direct Bilirubin (0.0-0.5) mg/dL AST (5-37) U/L ALT (0-40) U/L Alkaline Phosphatase (39-117) U/L Ammonia (13-55) umol/L Troponin I High Sens 9.6 (<3.5-35.0) ng/L B-Natriuretic Peptide (<100) pg/mL Total Protein (6.5-8.0) g/dL Albumin (3.5-5.0) g/dL Lipase (8-78) U/L Urine Color Yellow Urine Appearance Clear Urine pH 8.0 (5.0-9.0) Ur Specific [place] <= 1.005 (1.005-1.025) Urine Protein Negative (Neg-Trace) mg/dL Urine Glucose (UA) Negative (Negative) mg/dL Urine Ketones Negative (Negative) mg/dL Urine Blood Negative (Negative) Urine Nitrite Negative (Negative) Ur Leukocyte Esterase Negative (Negative) COVID-19 (SUNNI) (Negative) COVID-19 Clin Com Influenza Type A (WARREN) (Negative) Influenza Type B (WARREN) (Negative) Influenza A & B Note Independent Interpretation I performed an independent interpretation of an: EKG (my interpretation: EKG normal sinus rhythm rate of 99. AK interval 140. QRS 74. QTC 474. No significant change when compared to prior. Artifact present ) Radiology Impression Discussion of test interpretation with radiology: I have reviewed the radiologist's reading. Independent Historian Clinical information obtained from an independent historian. History obtained from or confirmed by: EMS and Other (senior care staff) External Record Review External record reviewed: Inpatient record, Office record, Outpatient record, Prior outpatient labs, Prior outpatient radiology, Primary care record and Outside ED record Tests considered The following testing was considered but not selected: As above Prescription Management I considered prescription management with: Antibiotic Chronic Conditions Patient?s care impacted by: Other Critical Care Time Critical Care Time Critical Care Time: Yes Total Critical Care Time: 45 Attestation: I have personally provided critical care time exclusive of time spent on separately billable procedures. Time includes review of lab data, radiology results, discussion with consultants, and monitoring for potential decompensation. Intervention performed as documented. Discharge Plan Discharge Clinical Impression: Volvulus of colon, Aspiration pneumonia, Fever Patient Disposition: Admitted As Inpatient
[2023-04-01] MEDS: Acetaminophen Supp 650 MG SUPP.RECT PR (06:53)
[2023-04-01 07:06] LABS: Ammonia 42 umol/L (13-55)
[2023-04-01] MEDS: Piperacillin Sodium/Tazobactam 3.375 GM in 0.9 % Sodium Chloride 50 ML IV (07:07)
[2023-04-01 07:09] LABS: Lactic Acid 1.9 mmol/L (0.5-2.0)
[2023-04-01 07:12] LABS: Basophils Percent Auto 0.1 % (0-2); Hematocrit 32.2 % (42.0-52.0); Hemoglobin 10.6 g/dl (14.0-18.0); Imm Gran Abs Auto 0.06 X10*3/uL (0.00-0.03); Imm Gran Pct Auto 0.4 % (0.0-0.4); Lymphocytes Absolute Auto 0.4 X10*3/uL (1.2-4.9); Lymphocytes Percent Auto 2.7 % (20-40); MANUAL DIFF FLAG SCAN; Mean Corpuscular HGB Conc 32.9 g/dl (31.0-36.0); Mean Corpuscular Hemoglobin 31.6 pg (27.0-33.0); Mean Corpuscular Volume 96.1 fL (80.0-98.0); Mean Platelet Volume 9.6 fL (9.4-12.4); Monocytes Absolute Auto 0.8 X10*3/uL (0.1-1.2); Monocytes Percent Auto 5.6 % (2-11); Neutrophils Absolute Auto 13.6 x10*3/uL (2.0-8.3); Neutrophils Percent Auto 91.2 % (45-73); Platelet Count 231 X10*3/uL (160-400); Red Blood Count 3.35 X10*6/uL (4.60-5.80); Red Cell Distribution Width 14.1 % (11.0-16.0); SCAN SMEAR FLAG 1; White Blood Count 14.9 X10*3/uL (4.8-10.8)
[2023-04-01 07:16] LABS: Glucose, Whole Blood 87 mg/dL (60-115)
[2023-04-01 07:16] LABS: Alanine Aminotransferase 9 U/L (0-40); Albumin Level 3.2 g/dL (3.5-5.0); Alkaline Phosphatase 74 U/L (39-117); Anion Gap 14 (12-20); Aspartate Amino Transferase 20 U/L (5-37); Bilirubin Direct < 0.2 mg/dL (0.0-0.5); Bilirubin Total 0.2 mg/dL (0.0-1.0); Blood Urea Nitrogen 22 mg/dL (9-16); Calcium 8.8 mg/dL (8.4-10.2); Carbon Dioxide 28 mmol/L (22-29); Chloride 103 mmol/L (96-108); Creatinine Clr Calc Pharmacy 72.9; Estimated Glomerular Filt Rate > 60; Glucose Random 91 mg/dL (60-115); Lipase 15 U/L (8-78); Potassium 3.9 mmol/L (3.3-5.1); Sodium 141 mmol/L (135-145); Total Protein 8.3 g/dL (6.5-8.0)
[2023-04-01 07:17] LABS: COVID-19 Test Negative (Negative); IDNOW Serial# 08D9AD1C
[2023-04-01 07:19] LABS: IDNOW Serial# 152EDE1D; Influenza A Negative (Negative); Influenza B2 Negative (Negative)
[2023-04-01 07:22] LABS: Troponin-I High Sensitivity 6.5 ng/L (<3.5-35.0)
[2023-04-01 07:36] LABS: B Type Natriuretic Peptide 63 pg/mL (<100)
--- NOTE | 2023-04-01 07:46 | PC.NURSE ---
assumed care of pt at 0700. pt resting quietly on stretcher with caregiver at bedside from facility. pt on bedside monitor, in NSR. on 2L O2 via NC sating 97-98%. fluids and IV abx infusing. [place] catheter applied. awaiting urine sample. plan of care ongoing.
[2023-04-01 08:09] LABS: SLIDE REVIEW VERIFIED
[2023-04-01 10:31] LABS: Troponin-I High Sensitivity 9.6 ng/L (<3.5-35.0)
[2023-04-01] MEDS: Albumin Human 25 % 100 ML 133.33 ML IV ×2 (10:36→11:39)
--- NOTE | 2023-04-01 10:52 | PC.NURSE ---
pt BP still trending down. OFELIA Hu aware. pt placed in trendelenberg and started on albumin drip.
[2023-04-01 12:04] LABS: Appearance Urine Clear; Color Urine Yellow; Glucose Urine UA Negative (Negative); Leukocyte Esterase Urine Negative (Negative); Nitrite Urine Negative (Negative); Specific Gravity - Urine <= 1.005 (1.005-1.025); Urine Blood Negative (Negative); Urine Ketones Negative (Negative); Urine Protein Negative (Neg-Trace)
--- NOTE | 2023-04-01 13:28 | PHA.MEDREC ---
Pharmacy Consult ? Medication Reconciliation Pharmacy has completed the medication reconciliation. Patient came from [facility] with med list which matched claim history. Amber WrightD
[2023-04-01] MEDS: Lactated Ringers 1,000 ML 999 ML IV (14:46)
--- NOTE | 2023-04-01 15:25 | P.HPHOSP_ITS ---
History of Present Illness Date of Service: 04/01/23 Attending physician on admission: Cora Knox Chief Complaint: cold, shaking 66-year-old nonverbal male resident of intermediate with autism, intellectual disability, OCD, bipolar disorder, seizure disorder, dysphagia, hypertension, hep B carrier, chronic constipation, nephrogenic diabetes insipidus, PICA, chronic normocytic anemia, CKD stage III, GERD, and recurrent aspiration pneumonia with g tube in place presented to the ED from intermediate for evaluation of shaking and feeling cold noted by staff at home. Pt is nonverbal and intermediate staff member, Jossie, is unable to provide much additional history. On arrival, pt febrile to 101.5, tachycardic to 114. No hypoxia. he was hypotensive but responded well to IVF. There is a leukocytosis of 14.9. Renal function baseline, lytes normal. Lactic acid 1.9. UA unremarkable. Negative fro COVID-19, flu. CXr negative. Chest CT shows improved tree-in- bud nodularlity in R lung and decrease in atelectasis or airspace disease in posterior right lower lobe. There is a 0.6cm nodule R upper lobe. Ct abd/pelvis shows chronic gaseous distention of the colon possibly representing presence of ileus/pseudoobstruction as well as new clockwise tristing of the mesentery along the descending colon possibly representing partial volvulus with subtle haziness of the mesenteric fat. In the ED, has received 1.9ml IV NS, 1L bolus IV LR, albumin x2, IV zosyn. Review of Systems 2 Review of Systems: Yes Unobtainable due to mental status [facility] Medical History (Updated 04/01/23 @ 15:57 by OFELIA Nicole) Severe sepsis Dysphagia Pica Seizures BPH (benign prostatic hyperplasia) Dysphagia Pneumonia Mentally challenged Developmental non-verbal disorder Autism Hydrocele Chronic renal disease Hyperlipemia Anemia Hypertension Hiatal hernia GERD (gastroesophageal reflux disease) OCD (obsessive compulsive disorder) Bipolar 1 disorder Surgical History History of colectomy H/O exploratory laparotomy Social History Household Members: Other Household Members Other:: intermediate, [facility] Housing: Other Housing Other:: intermediate Do you presently have visiting nurse or other home services: Yes Unable to assess alcohol history related to: Unable to respond Alcohol intake: never Comment: 1:1 sitter Patient Tobacco Use Status: Never used Tobacco Smoked in Last 30 Days: No Use of substances other than those prescribed or required for medical reasons: No Currently Displaying Signs/Symptoms of Drug Intoxication Withdrawal: No Advance Directives: No Advance Directives Information Provided: No Advance Directives Date on File: 12/24/21 Do you have thoughts of harming others: None Do you have a plan to hurt others: No Plan service: No Current occupational status: disabled Meds Allergies Allergy/AdvReac Type Severity Reaction Status Date / Time haloperidol [From HALDOL] AdvReac Unknown UNKNOWN Verified 12/18/22 09:51 metoclopramide [From REGLAN] AdvReac Unknown UNKNOWN Verified 12/18/22 09:51 Active Medications: Current Medications Acetaminophen (Acetaminophen Supp 650 Mg Supp.Rect) 650 mg MD Q6H PRN PRN Reason: Pain, Mild, fever Enoxaparin Sodium (Enoxaparin Sodium 40 Mg/0.4 Ml Syringe) 40 mg SUBCUT Q24H RODOLFO Piperacillin Sod/Tazobactam (Sod 4.5 gm/ Sodium Chloride) 100 mls @ 200 mls/hr IV Q6H RODOLFO Sodium Chloride (0.9 % Sodium Chloride Flush 3 Ml Syringe) 3 ml IVFLUSH QSHIFT RODOLFO Home Medications Medication Instructions Recorded Confirmed Last Taken Type bacitracin zinc 500 unit/gram 1 appl topical BID PRN Wound Care 12/24/21 04/01/23 Unknown History topical ointment docusate sodium 60 mg/15 mL oral 100 mg feeding tube BEDTIME 11/10/22 04/01/23 Unknown History syrup omeprazole 20 mg capsule,delayed 40 mg feeding tube DAILY@0630 11/10/22 04/01/23 Unknown History release nystatin 100,000 unit/gram topical 1 appl topical BID 12/18/22 04/01/23 Unknown History powder citalopram 20 mg tablet 20 mg feeding tube DAILY 04/01/23 04/01/23 Unknown History citalopram 40 mg tablet 40 mg feeding tube DAILY 04/01/23 04/01/23 Unknown History finasteride 5 mg tablet 5 mg feeding tube DAILY 04/01/23 04/01/23 Unknown History psyllium 1 tbsp feeding tube BID@0800,1600 04/01/23 04/01/23 Unknown History valproic acid (as sodium salt) 250 1,000 mg feeding tube BID@0800,2000 04/01/23 04/01/23 Unknown History mg/5 mL oral solution Physical Exam 2 Vital Signs and Narrative: Vital Signs: Last Vital Signs Temp 96.4 F L 04/01/23 14:49 Pulse 79 04/01/23 14:49 Resp 16 04/01/23 14:49 BP 102/61 04/01/23 14:49 Pulse Ox 100 04/01/23 14:49 O2 Del Method Nasal Cannula 04/01/23 14:49 O2 Flow Rate 1 04/01/23 14:49 BMI result Body Mass Index 22.3 Constitutional - Awake and Alert, No apparent distress Eyes - PERRLA, EOMI Cardiovascular - S1S2, RRR, No edema Respiratory - Normal lung expansion, Normal respiratory effort, No respiratory distress, CTA bilaterally Gastrointestinal - NT / ND; +BS; No rebound or guarding Extremities - no calf tenderness bilaterally, no swelling Skin - Warm/Dry Neurological - Alert & oriented x3 Psychological - Appropriate affect Results Labs 04/02/23 08:13 04/02/23 08:13 Labs: Laboratory Results - last 24 hr 04/01/23 04/01/23 04/01/23 06:43 06:46 07:12 MCV 96.1 MCH 31.6 MCHC 32.9 RDW 14.1 Plt Count 231 MPV 9.6 Immature Gran % (Auto) 0.4 Neut % (Auto) 91.2 H Lymph % (Auto) 2.7 L [place] % (Auto) 5.6 Eos % (Auto) 0.0 Baso % (Auto) 0.1 Lymph # (Auto) 0.4 L [place] # (Auto) 0.8 Eos # (Auto) 0.0 Baso # (Auto) 0.0 Abs Immat Gran (auto) 0.06 H Absolute Neuts (auto) 13.6 H Absolute Nucleated RBC 0.000 Nucleated RBC % (auto) 0.0 Smear Tech's Comments VERIFIED Anion Gap 14 Estim Creat Clear Calc 72.9 Estimated GFR > 60 POC Glucose 87 Random Glucose 91 Lactic Acid 1.9 Calcium 8.8 Magnesium 2.0 Total Bilirubin 0.2 Direct Bilirubin < 0.2 AST 20 ALT 9 Alkaline Phosphatase 74 Ammonia 42 B-Natriuretic Peptide 63 Total Protein 8.3 H Albumin 3.2 L Lipase 15 Urine Color Urine Appearance Urine pH Ur Specific [place] Urine Protein Urine Glucose (UA) Urine Ketones Urine Blood Urine Nitrite Ur Leukocyte Esterase COVID-19 (SUNNI) Negative COVID-19 Clin Com See Note Influenza Type A (WARREN) Negative Influenza Type B (WARREN) Negative Influenza A & B Note See Note 04/01/23 11:55 MCV MCH MCHC RDW Plt Count MPV Immature Gran % (Auto) Neut % (Auto) Lymph % (Auto) [place] % (Auto) Eos % (Auto) Baso % (Auto) Lymph # (Auto) [place] # (Auto) Eos # (Auto) Baso # (Auto) Abs Immat Gran (auto) Absolute Neuts (auto) Absolute Nucleated RBC Nucleated RBC % (auto) Smear Tech's Comments Anion Gap Estim Creat Clear Calc Estimated GFR POC Glucose Random Glucose Lactic Acid Calcium Magnesium Total Bilirubin Direct Bilirubin AST ALT Alkaline Phosphatase Ammonia B-Natriuretic Peptide Total Protein Albumin Lipase Urine Color Yellow Urine Appearance Clear Urine pH 8.0 Ur Specific [place] <= 1.005 Urine Protein Negative Urine Glucose (UA) Negative Urine Ketones Negative Urine Blood Negative Urine Nitrite Negative Ur Leukocyte Esterase Negative COVID-19 (SUNNI) COVID-19 Clin Com Influenza Type A (WARREN) Influenza Type B (WARREN) Influenza A & B Note Imaging Radiologist's Impressions: Impressions Chest X-Ray 04/01/23 06:58 IMPRESSION: No significant radiographic change compared with 03/20/2023, as above. Please see above. Abdomen/Pelvis CT 04/01/23 09:36 IMPRESSION: * Overall improvement in right lung disease compared to 01/04/2022. There is decreased tree-in-bud nodularity in the right lung and significant decrease in atelectasis or airspace disease in posterior right lower lobe. The tree-in-bud nodularity could be due to recurrent aspiration or infectious bronchiolitis. * 0.6 cm nodule in the anterior right upper lobe is nonspecific but is likely related to infectious or inflammatory disease. Based on Fleischner Society guidelines, recommend CT follow-up at 6-12 months. Then, if persistent and stable, consider CT at 18-24 months in a low risk patient or obtain CT at 18-24 months if in a high risk patient. * Chronic gaseous distention of the colon could reflect presence of ileus/pseudoobstruction. There is a new clockwise twisting of some of the mesentery along the descending colon. This has the appearance of a partial volvulus and there is subtle haziness of mesenteric fat in this region of mesenteric twisting. There is no pneumatosis intestinalis or pneumoperitoneum. The critical test result was discussed with Mayte Novoa at 10:30 AM on 04/01/2023 and it was ascertained that the content and the importance of the findings was understood at the time of the direct communication. Chest CT 04/01/23 09:36 IMPRESSION: * Overall improvement in right lung disease compared to 01/04/2022. There is decreased tree-in-bud nodularity in the right lung and significant decrease in atelectasis or airspace disease in posterior right lower lobe. The tree-in-bud nodularity could be due to recurrent aspiration or infectious bronchiolitis. * 0.6 cm nodule in the anterior right upper lobe is nonspecific but is likely related to infectious or inflammatory disease. Based on Fleischner Society guidelines, recommend CT follow-up at 6-12 months. Then, if persistent and stable, consider CT at 18-24 months in a low risk patient or obtain CT at 18-24 months if in a high risk patient. * Chronic gaseous distention of the colon could reflect presence of ileus/pseudoobstruction. There is a new clockwise twisting of some of the mesentery along the descending colon. This has the appearance of a partial volvulus and there is subtle haziness of mesenteric fat in this region of mesenteric twisting. There is no pneumatosis intestinalis or pneumoperitoneum. The critical test result was discussed with Mayte Novoa at 10:30 AM on 04/01/2023 and it was ascertained that the content and the importance of the findings was understood at the time of the direct communication. Assessment and Plan (1) Volvulus of colon: Status: Acute (2) Aspiration pneumonia: Status: Acute (3) Severe sepsis: Status: Acute Plan 66-year-old nonverbal male resident of intermediate with autism, intellectual disability, OCD, bipolar disorder, seizure disorder, dysphagia, hypertension, hep B carrier, chronic constipation, nephrogenic diabetes insipidus, PICA, chronic normocytic anemia, CKD stage III, GERD, and recurrent aspiration pneumonia with g tube in place admitted for suspected aspiration pneumonia, meeting sepsis criteria #Suspected aspiration pneumonia with severe sepsis -leukocytosis 14.9, tachycardic, febrile. Hypotension resolved on admission with IVF -CT chest without acute infectious abnormality -given history of aspiration requiring gtube, will treat for aspiration pneumonia -IV zosyn (initiated 04/01) -Keep npo, NURSERY HAND eval, unclear if patient takes any PO at home -Follow CBC, cultures -admit to med/tele #Partial volvulus colon -gastrografin enema per gen surgery -general surgery consult # seizure disorder - continue valproate # mood disorder - continue citalopram, olanzapine # GERD - continue PPI # prostatism - continue finasteride, doxazosin # VTE prophylaxis: LMWH # code status: full I anticipate that the patient will stay at least 2 midnights as an inpatient in the hospital due to the above reasons including severe sespsis with aspiration pneumonia requiring IV antibiotics, IV fluids, and close monitoring to prevent recurrent aspiration. Quality Stroke Does the patient have a stroke diagnosis?: No VTE Prior VTE?: No VTE Risk Level:: Medical - moderate - high VTE Device Contraindication: Treatment Not Indicated VTE Drug Contraindication: N/A - Med Ordered
--- NOTE | 2023-04-01 15:55 | PC.NURSE ---
pt titrated off of O2. sating 100% on room air. staff member from pt facility at bedside. rr even/unlabored. plan of care ongoing.
--- NOTE | 2023-04-01 17:44 | MHC.EDTECH ---
Patient inc therefore patient changed and repositioned
[2023-04-01] MEDS: Piperacillin Sodium/Tazobactam 4.5 GM in 0.9 % Sodium Chloride 100 ML IV ×2 (18:00→22:05)
[2023-04-01] MEDS: 0.9 % Sodium Chloride 1,000 ML 100 ML IVCONT (18:06)
[2023-04-01] MEDS: Enoxaparin Sodium 40 MG/0.4 ML SYRINGE SUBCUT (20:32)
--- NOTE | 2023-04-01 20:37 | P.CONGS_ITS ---
History of Present Illness Consult details Consult date: 04/01/23 Reason for consult: other Narrative: The pt is a 68 leandra old male known to the surgery service in 2021 when he had a PEG tube placed due to aspiration penumonias. He comes in again and is admitted for asp pneumonia but had a CT scan to evaluate his abdomen - pt is nonverbal and mentally delayed so difficult to tell whats wrong. CT showed ? sigmoid or partial sigmoid volvulus with twist of colon mesentery - it also seems like pt had a partial colectomy in the past as suture line seen nearby. supposedly subtotal colectomy but moderate amount of colon noted. Pt not seeming tender to palpation but abdomen is a bit distended. His accompanying person does not know any of his history. Plan was to get gastrograffin enema but unable to do that so d/w radiology has plan to do rectal contrast CT scan. Pt admitted and treatment for pneumonia. Review of Systems 2 Review of Systems: Yes Unobtainable due to mental status PMFSH Past Medical History Medical History (Updated 04/01/23 @ 15:57 by OFELIA Nicole) Severe sepsis Dysphagia Pica Seizures BPH (benign prostatic hyperplasia) Dysphagia Pneumonia Mentally challenged Developmental non-verbal disorder Autism Hydrocele Chronic renal disease Hyperlipemia Anemia Hypertension Hiatal hernia GERD (gastroesophageal reflux disease) OCD (obsessive compulsive disorder) Bipolar 1 disorder Surgical History Surgical History History of colectomy H/O exploratory laparotomy Social History Social History Household Members: Other Household Members Other:: detention, [facility] Housing: Other Housing Other:: as above Do you presently have visiting nurse or other home services: Yes (staffing 24 hours, not nursing, administer meds and TF and ADLs) Unable to assess alcohol history related to: Unable to respond Alcohol intake: never Comment: detention staff in room Patient Tobacco Use Status: Never used Tobacco Smoked in Last 30 Days: No Use of substances other than those prescribed or required for medical reasons: No Advance Directives: No Advance Directives Information Provided: No Advance Directives Date on File: 12/24/21 service: No Current occupational status: disabled Meds Allergies Allergy/AdvReac Type Severity Reaction Status Date / Time haloperidol [From HALDOL] AdvReac Unknown UNKNOWN Verified 12/18/22 09:51 metoclopramide [From REGLAN] AdvReac Unknown UNKNOWN Verified 12/18/22 09:51 Active Medications: Current Medications Acetaminophen (Acetaminophen Supp 650 Mg Supp.Rect) 650 mg [place] Q6H PRN PRN Reason: Pain, Mild, fever Docusate Sodium (Docusate Sodium 100 Mg/10 Ml Liquid) 100 mg G-TUBE BEDTIME [facility] Enoxaparin Sodium (Enoxaparin Sodium 40 Mg/0.4 Ml Syringe) 40 mg SUBCUT Q24H RODOLFO Escitalopram Oxalate (Escitalopram Oxalate 10 Mg Tablet) 10 mg G-TUBE DAILY RODOLFO Escitalopram Oxalate (Escitalopram Oxalate 20 Mg Tablet) 20 mg G-TUBE DAILY [facility] Guaifenesin/Dextromethorphan (Guaifenesin Dm 100/10/5 Ml 5 Ml Syrup) 10 ml G- TUBE Q6H PRN PRN Reason: Cough Piperacillin Sod/Tazobactam (Sod 4.5 gm/ Sodium Chloride) 100 mls @ 200 mls/hr IV Q6H [facility] Last Infusion: 04/01/23 18:30 Dose: Infused Sodium Chloride (Ns) 1,000 mls @ 100 mls/hr IVCONT .Q10H [facility] Last Admin: 04/01/23 18:06 Dose: 100 mls/hr Loratadine (Loratadine 10 Mg Tablet) 10 mg G-TUBE DAILY [facility] Magnesium Hydroxide (Milk Of Magnesia 30 Ml Oral.Susp) 30 ml G-TUBE DAILY PRN PRN Reason: Constipation Nystatin (Nystatin Powder 15 Gm Bottle) 1 appl TOPICAL BID RODOLFO; Protocol Olanzapine (Olanzapine 10 Mg Tablet) 10 mg G-TUBE DAILY [facility] Olanzapine (Olanzapine 10 Mg Tablet) 20 mg G-TUBE BEDTIME [facility] Omeprazole (Omeprazole/Na Bicarb Oral Susp 20 Mg/10 Ml Ud Cup) 40 mg G-TUBE DAILY@0630 [facility] Polyethylene Glycol (Polyethylene Glycol 3350 17 Gm Powd.Pack) 17 gm G-TUBE BID [facility] Psyllium Hydrophilic Mucilloid (Psyllium Seed 3.7 Gm Packet) 3.7 gm PO BID@0800,1600 [facility] Last Admin: 04/01/23 19:26 Dose: Not Given Simethicone (Simethicone Drops 40 Mg/0.6 Ml 15 Ml Drops.Susp) 40 mg G- TUBE TID@0800,1599,1999 [facility] Last Admin: 04/01/23 19:26 Dose: Not Given Sodium Chloride (0.9 % Sodium Chloride Flush 3 Ml Syringe) 3 ml IVFLUSH QSHIFT [facility] Last Admin: 04/01/23 18:00 Dose: Not Given Valproic Acid (Valproic Acid (As Sodium Salt) 250 Mg/5 Ml Solution) 1,000 mg G- TUBE BID@08,1999 [facility] Home Medications Medication Instructions Recorded Confirmed Last Taken Type bacitracin zinc 500 unit/gram 1 appl topical BID PRN Wound Care 12/24/21 04/01/23 Unknown History topical ointment docusate sodium 60 mg/15 mL oral 100 mg feeding tube BEDTIME 11/10/22 04/01/23 Unknown History syrup omeprazole 20 mg capsule,delayed 40 mg feeding tube DAILY@0630 11/10/22 04/01/23 Unknown History release nystatin 100,000 unit/gram topical 1 appl topical BID 12/18/22 04/01/23 Unknown History powder citalopram 20 mg tablet 20 mg feeding tube DAILY 04/01/23 04/01/23 Unknown History citalopram 40 mg tablet 40 mg feeding tube DAILY 04/01/23 04/01/23 Unknown History finasteride 5 mg tablet 5 mg feeding tube DAILY 04/01/23 04/01/23 Unknown History psyllium 1 tbsp feeding tube BID@0800,1600 04/01/23 04/01/23 Unknown History valproic acid (as sodium salt) 250 1,000 mg feeding tube BID@0800,199904/01/23 04/01/23 Unknown History mg/5 mL oral solution Physical Exam 2 Vital Signs: Vital Signs: Last Vital Signs Temp 97.1 F 04/01/23 19:23 Pulse 77 04/01/23 19:23 Resp 18 04/01/23 19:23 BP 117/59 L 04/01/23 19:23 Pulse Ox 98 04/01/23 19:23 O2 Del Method Room Air 04/01/23 19:23 O2 Flow Rate 1 04/01/23 14:49 BMI result Body Mass Index 22.3 GI: Other: abdomen is soft, maybe a bit distended, g tube in place seemingly nontender to deep palpation Results Labs 04/01/23 06:43 04/01/23 06:43 Labs: Abnormal lab results 04/01/23 Range/Units 06:43 WBC 14.9 H (4.8-10.8) X10*3/uL RBC 3.35 L (4.60-5.80) X10*6/uL Hgb 10.6 L (14.0-18.0) g/dl Hct 32.2 L (42.0-52.0) % Neut % (Auto) 91.2 H (45-73) % Lymph % (Auto) 2.7 L (20-40) % Lymph # (Auto) 0.4 L (1.2-4.9) X10*3/uL Abs Immat Gran (auto) 0.06 H (0.00-0.03) X10*3/uL Absolute Neuts (auto) 13.6 H (2.0-8.3) x10*3/uL BUN 22 H (9-16) mg/dL Total Protein 8.3 H (6.5-8.0) g/dL Albumin 3.2 L (3.5-5.0) g/dL Short CBC 04/01/23 Range/Units 06:43 WBC 14.9 H (4.8-10.8) X10*3/uL Hgb 10.6 L (14.0-18.0) g/dl Hct 32.2 L (42.0-52.0) % Plt Count 231 (160-400) X10*3/uL BMP 04/01/23 06:43 Sodium 141 Potassium 3.9 Chloride 103 Carbon Dioxide 28 BUN 22 H Creatinine 0.91 Calcium 8.8 Liver Function 04/01/23 Range/Units 06:43 Total Bilirubin 0.2 (0.0-1.0) mg/dL Direct Bilirubin < 0.2 (0.0-0.5) mg/dL AST 20 (5-37) U/L ALT 9 (0-40) U/L Alkaline Phosphatase 74 (39-117) U/L Albumin 3.2 L (3.5-5.0) g/dL Urine 04/01/23 Range/Units 11:55 Urine Color Yellow Urine Appearance Clear Urine pH 8.0 (5.0-9.0) Ur Specific [place] <= 1.005 (1.005-1.025) Urine Protein Negative (Neg-Trace) mg/dL Urine Glucose (UA) Negative (Negative) mg/dL All other labs normal. Imaging Abdomen CT scan report/results: report reviewed and image reviewed CT scan - pelvis: report reviewed and image reviewed Assessment and Plan (1) Volvulus of colon: Status: Acute Plan 68 year old male with multiple developmental issues and being admitted for asp pneumonia with findings of ?partial sig volvulus despite hx of subtotal colectomy in past - plan to try to get CT of abdomen and pelvis with rectal contrast to diagnose and possibly treat and allow for detorsion of colon. Discussed with radiology team -pending Procedures Date of Service Date of Service: 04/01/23
[2023-04-01] MEDS: Nystatin Powder 15 GM BOTTLE 1 APPL TOPICAL (22:04)
[2023-04-01] MEDS: OLANZapine 10 MG TABLET 20 MG G-TUBE (22:05)
[2023-04-01] MEDS: Diatrizoate Meglumine, Sodium 120 ML SOLUTION 30 ML PR (23:32)
[2023-04-02 03:03] VITALS: BP 103/52; PULSE 93; RESP 16; TEMP 36; O2SAT 97
[2023-04-02] MEDS: Piperacillin Sodium/Tazobactam 4.5 GM in 0.9 % Sodium Chloride 100 ML IV ×4 (04:05→21:54)
[2023-04-02] MEDS: Omeprazole/Na Bicarb Oral Susp 20 MG/10 ML UD Cup 40 MG G-TUBE (05:48)
[2023-04-02] MEDS: 0.9 % Sodium Chloride 1,000 ML 100 ML IVCONT ×2 (05:53→21:54)
--- NOTE | 2023-04-02 07:36 | P.PNGS_ITS ---
Subjective Subjective Date of Service: 04/03/23 Interval history: As per nursing staff patient has been comfortable Incontinent of stool History review Physical Exam 2 Vital Signs: Vital Signs: Last Vital Signs Temp 96.8 F 04/02/23 03:03 Pulse 93 04/02/23 03:03 Resp 16 04/02/23 03:03 BP 103/52 L 04/02/23 03:03 Pulse Ox 97 04/02/23 03:03 O2 Del Method Room Air 04/02/23 03:03 O2 Flow Rate 1 04/01/23 14:49 BMI result Body Mass Index 22.3 Const: Other: Nonverbal General: comfortable and no acute distress Resp: Effort & Inspection: normal respiratory effort GI: Palpation (GI): Soft to palpation, not firm, nontender and no guarding Objective Data Active Medications Acetaminophen (Acetaminophen Supp 650 Mg Supp.Rect) 650 mg [place] Q6H PRN PRN Reason: Pain, Mild, fever Docusate Sodium (Docusate Sodium 100 Mg/10 Ml Liquid) 100 mg G-TUBE BEDTIME [facility] Last Admin: 04/01/23 22:05 Dose: Not Given Documented By: RAFAT Non-Admin Reason: loose stools Enoxaparin Sodium (Enoxaparin Sodium 40 Mg/0.4 Ml Syringe) 40 mg SUBCUT Q24H [facility] Last Admin: 04/01/23 20:32 Dose: 40 mg Documented By: RAFAT Escitalopram Oxalate (Escitalopram Oxalate 10 Mg Tablet) 10 mg G-TUBE DAILY [facility] Escitalopram Oxalate (Escitalopram Oxalate 20 Mg Tablet) 20 mg G-TUBE DAILY [facility] Guaifenesin/Dextromethorphan (Guaifenesin Dm 100/10/5 Ml 5 Ml Syrup) 10 ml G- TUBE Q6H PRN PRN Reason: Cough Piperacillin Sod/Tazobactam (Sod 4.5 gm/ Sodium Chloride) 100 mls @ 200 mls/hr IV Q6H [facility] Last Infusion: 04/02/23 04:38 Dose: Infused Documented By: RAFAT Sodium Chloride (Ns) 1,000 mls @ 100 mls/hr IVCONT .Q10H [facility] Last Admin: 04/02/23 05:53 Dose: 100 mls/hr Documented By: RAFAT Loratadine (Loratadine 10 Mg Tablet) 10 mg G-TUBE DAILY [facility] Magnesium Hydroxide (Milk Of Magnesia 30 Ml Oral.Susp) 30 ml G-TUBE DAILY PRN PRN Reason: Constipation Nystatin (Nystatin Powder 15 Gm Bottle) 1 appl TOPICAL BID [facility]; Protocol Last Admin: 04/01/23 22:04 Dose: 1 appl Documented By: RAFAT Olanzapine (Olanzapine 10 Mg Tablet) 10 mg G-TUBE DAILY [facility] Olanzapine (Olanzapine 10 Mg Tablet) 20 mg G-TUBE BEDTIME [facility] Last Admin: 04/01/23 22:05 Dose: 20 mg Documented By: RAFAT Omeprazole (Omeprazole/Na Bicarb Oral Susp 20 Mg/10 Ml Ud Cup) 40 mg G-TUBE DAILY@0630 [facility] Last Admin: 04/02/23 05:48 Dose: 40 mg Documented By: RAFAT Polyethylene Glycol (Polyethylene Glycol 3350 17 Gm Powd.Pack) 17 gm G-TUBE BID [facility] Last Admin: 04/01/23 22:05 Dose: Not Given Documented By: RAFAT Non-Admin Reason: loose stools Psyllium Hydrophilic Mucilloid (Psyllium Seed 3.7 Gm Packet) 3.7 gm PO BID@0800,1600 [facility] Last Admin: 04/01/23 19:26 Dose: Not Given Documented By: RAFAT Non-Admin Reason: pt in ED Simethicone (Simethicone Drops 40 Mg/0.6 Ml 15 Ml Drops.Susp) 40 mg G- TUBE TID@0800,1600,1999 [facility] Last Admin: 04/01/23 22:04 Dose: 40 mg Documented By: RAFAT Sodium Chloride (0.9 % Sodium Chloride Flush 3 Ml Syringe) 3 ml IVFLUSH QSHIFT [facility] Last Admin: 04/01/23 22:06 Dose: Not Given Documented By: RAFAT Non-Admin Reason: IV Running Valproic Acid (Valproic Acid (As Sodium Salt) 250 Mg/5 Ml Solution) 1,000 mg G- TUBE BID@0800,1999 [facility] Last Admin: 04/01/23 22:04 Dose: 1,000 mg Documented By: RAFAT Labs 04/03/23 08:10 04/03/23 08:10 Labs: Laboratory Results - last 24 hr 04/01/23 04/01/23 04/01/23 06:43 10:07 11:55 MCV 96.1 MCH 31.6 MCHC 32.9 RDW 14.1 Plt Count 231 MPV 9.6 Immature Gran % (Auto) 0.4 Neut % (Auto) 91.2 H Lymph % (Auto) 2.7 L [place] % (Auto) 5.6 Eos % (Auto) 0.0 Baso % (Auto) 0.1 Lymph # (Auto) 0.4 L [place] # (Auto) 0.8 Eos # (Auto) 0.0 Baso # (Auto) 0.0 Abs Immat Gran (auto) 0.06 H Absolute Neuts (auto) 13.6 H Absolute Nucleated RBC 0.000 Nucleated RBC % (auto) 0.0 Smear Tech's Comments VERIFIED Troponin I High Sens 9.6 B-Natriuretic Peptide 63 Urine Color Yellow Urine Appearance Clear Urine pH 8.0 Ur Specific [place] <= 1.005 Urine Protein Negative Urine Glucose (UA) Negative Urine Ketones Negative Urine Blood Negative Urine Nitrite Negative Ur Leukocyte Esterase Negative Procedures Date of Service Date of Service: 04/03/23 Progress Note: A&P Assessment and plan (1) Aspiration pneumonia: Status: Acute Assessment and Plan: Repeat CT does not show volvulus Physical exam does not suggest an abdominal issue Exam benign Abdomen soft does not appear to be tender accdg to staff - had BMs earlier Rest of care as per the hospitalist Time Spent With Patient Time: Total time managing care of this patient today ____ minutes. Quality Stroke Does the patient have a stroke diagnosis?: No VTE Prior VTE?: No VTE Risk Level:: Medical - moderate - high VTE Device Contraindication: Treatment Not Indicated VTE Drug Contraindication: N/A - Med Ordered
[2023-04-02 08:00] VITALS: BP 143/64; PULSE 85; RESP 16; TEMP 36.6; O2SAT 97
[2023-04-02 08:32] LABS: MANUAL DIFF FLAG NO
[2023-04-02 08:45] LABS: Basophils Percent Auto 0.2 % (0-2); Eosinophils Percent Auto 0.2 % (0-4); Hemoglobin 9.6 g/dl (14.0-18.0); Imm Gran Abs Auto 0.05 X10*3/uL (0.00-0.03); Imm Gran Pct Auto 0.5 % (0.0-0.4); Lymphocytes Absolute Auto 1.4 X10*3/uL (1.2-4.9); Lymphocytes Percent Auto 12.4 % (20-40); Mean Corpuscular Hemoglobin 31.3 pg (27.0-33.0); Mean Corpuscular Volume 97.7 fL (80.0-98.0); Mean Platelet Volume 9.5 fL (9.4-12.4); Monocytes Absolute Auto 0.8 X10*3/uL (0.1-1.2); Monocytes Percent Auto 7.5 % (2-11); Neutrophils Absolute Auto 8.6 x10*3/uL (2.0-8.3); Neutrophils Percent Auto 79.2 % (45-73); Platelet Count 195 X10*3/uL (160-400); Red Blood Count 3.07 X10*6/uL (4.60-5.80); Red Cell Distribution Width 14.3 % (11.0-16.0); White Blood Count 10.9 X10*3/uL (4.8-10.8)
--- NOTE | 2023-04-02 08:49 | MHC.CM.PN ---
IMM 04/02/23 discussed on the phone with guardianSherry and copy sent via c. mail. Pt lives in a nursing home where he receives care for all ADL's. [facility] will fax paperwork needed for when pt. is ready to go back. Staff at nursing home informed CM that if pt is requiring IV ABX at [place], they cannot care for that there. CM asked if he has ever been to [facility], and staff member said that she did not know. DC plan is for pt. to return to his nursing home with prior level of care.
[2023-04-02 08:56] LABS: Anion Gap 12 (12-20); Blood Urea Nitrogen 15 mg/dL (9-16); Calcium 9.6 mg/dL (8.4-10.2); Carbon Dioxide 26 mmol/L (22-29); Chloride 112 mmol/L (96-108); Creatinine Clr Calc Pharmacy 72.1; Estimated Glomerular Filt Rate > 60; Glucose Random 68 mg/dL (60-115); Potassium 3.7 mmol/L (3.3-5.1); Sodium 146 mmol/L (135-145)
[2023-04-02] MEDS: polyethylene glycoL 3350 17 GM POWD.PACK G-TUBE (09:50)
[2023-04-02] MEDS: Psyllium seed 3.7 GM PACKET PO ×2 (09:50→17:43)
[2023-04-02] MEDS: Loratadine 10 MG TABLET G-TUBE (09:51)
[2023-04-02] MEDS: Escitalopram Oxalate 10 MG TABLET G-TUBE (09:51)
[2023-04-02] MEDS: OLANZapine 10 MG TABLET G-TUBE (09:51)
[2023-04-02] MEDS: Escitalopram Oxalate 20 MG TABLET G-TUBE (10:12)
[2023-04-02] MEDS: Nystatin Powder 15 GM BOTTLE 1 APPL TOPICAL ×2 (10:12→21:55)
--- NOTE | 2023-04-02 10:17 | MHC.SLORD ---
Speech Language Pathology Order Status: Per Prison staff, he has been NPO strict. informed, ok to cancel swallow evaluation.
[2023-04-02 11:40] VITALS: BP 129/64; PULSE 86; RESP 16; TEMP 37.3; O2SAT 96
--- NOTE | 2023-04-02 12:30 | P.PNIM_ITS ---
Subjective Subjective Date of Service: 04/02/23 Interval History: Seen and evaluated this morning non-verbal has a sitter in room, tried to removed the lines No other overnight events Review of Systems Review of Systems: Yes Unobtainable due to mental condition Physical Exam 2 Vital Signs: Vital Signs: Last Vital Signs Temp 99.1 F 04/02/23 11:40 Pulse 86 04/02/23 11:40 Resp 16 04/02/23 11:40 BP 129/64 04/02/23 11:40 Pulse Ox 96 04/02/23 11:40 O2 Del Method Room Air 04/02/23 11:40 O2 Flow Rate 1 04/01/23 14:49 BMI result Body Mass Index 22.3 Const: Other: Constitutional : Awake, frail looking Neck : Normal inspection, Supple Cardiovascular : RRR, no JVP, trace lower extremity edema Respiratory : fair bilateral air entry, basal fine crackles Gastrointestinal: soft, lax, Normal bowel sounds, Non tender, G-tube in placed Skin : Warm, Dry Neurological : Alert, non verbal, moving extremities Objective Data Active Medications Acetaminophen (Acetaminophen Supp 650 Mg Supp.Rect) 650 mg [place] Q6H PRN PRN Reason: Pain, Mild, fever Docusate Sodium (Docusate Sodium 100 Mg/10 Ml Liquid) 100 mg G-TUBE BEDTIME [facility] Last Admin: 04/01/23 22:05 Dose: Not Given Documented By: RAFAT Non-Admin Reason: loose stools Enoxaparin Sodium (Enoxaparin Sodium 40 Mg/0.4 Ml Syringe) 40 mg SUBCUT Q24H [facility] Last Admin: 04/01/23 20:32 Dose: 40 mg Documented By: RAFAT Escitalopram Oxalate (Escitalopram Oxalate 10 Mg Tablet) 10 mg G-TUBE DAILY [facility] Last Admin: 04/02/23 09:51 Dose: 10 mg Documented By: MALU Escitalopram Oxalate (Escitalopram Oxalate 20 Mg Tablet) 20 mg G-TUBE DAILY [facility] Last Admin: 04/02/23 10:12 Dose: 20 mg Documented By: MALU Guaifenesin/Dextromethorphan (Guaifenesin Dm 100/10/5 Ml 5 Ml Syrup) 10 ml G- TUBE Q6H PRN PRN Reason: Cough Piperacillin Sod/Tazobactam (Sod 4.5 gm/ Sodium Chloride) 100 mls @ 200 mls/hr IV Q6H [facility] Last Infusion: 04/02/23 11:25 Dose: Infused Documented By: MALU Sodium Chloride (Ns) 1,000 mls @ 100 mls/hr IVCONT .Q10H [facility] Last Infusion: 04/02/23 10:10 Dose: 0 mls/hr Documented By: MALU Loratadine (Loratadine 10 Mg Tablet) 10 mg G-TUBE DAILY [facility] Last Admin: 04/02/23 09:51 Dose: 10 mg Documented By: MALU Magnesium Hydroxide (Milk Of Magnesia 30 Ml Oral.Susp) 30 ml G-TUBE DAILY PRN PRN Reason: Constipation Nystatin (Nystatin Powder 15 Gm Bottle) 1 appl TOPICAL BID [facility]; Protocol Last Admin: 04/02/23 10:12 Dose: 1 appl Documented By: MALU Olanzapine (Olanzapine 10 Mg Tablet) 10 mg G-TUBE DAILY [facility] Last Admin: 04/02/23 09:51 Dose: 10 mg Documented By: MALU Olanzapine (Olanzapine 10 Mg Tablet) 20 mg G-TUBE BEDTIME [facility] Last Admin: 04/01/23 22:05 Dose: 20 mg Documented By: RAFAT Omeprazole (Omeprazole/Na Bicarb Oral Susp 20 Mg/10 Ml Ud Cup) 40 mg G-TUBE DAILY@0630 [facility] Last Admin: 04/02/23 05:48 Dose: 40 mg Documented By: RAFAT Polyethylene Glycol (Polyethylene Glycol 3350 17 Gm Powd.Pack) 17 gm G-TUBE BID [facility] Last Admin: 04/02/23 09:50 Dose: 17 gm Documented By: MALU Psyllium Hydrophilic Mucilloid (Psyllium Seed 3.7 Gm Packet) 3.7 gm PO BID@0800,1600 [facility] Last Admin: 04/02/23 09:50 Dose: 3.7 gm Documented By: MALU Simethicone (Simethicone Infant Drops 40 Mg/0.6 Ml 15 Ml Drops.Susp) 40 mg G- TUBE TID@0800,1600,2000 [facility] Last Admin: 04/02/23 09:49 Dose: 40 mg Documented By: MALU Sodium Chloride (0.9 % Sodium Chloride Flush 3 Ml Syringe) 3 ml IVFLUSH QSHIFT [facility] Last Admin: 04/02/23 10:00 Dose: Not Given Documented By: MALU Non-Admin Reason: IV Running Valproic Acid (Valproic Acid (As Sodium Salt) 250 Mg/5 Ml Solution) 1,000 mg G- TUBE BID@0800,1999 [facility] Last Admin: 04/02/23 09:50 Dose: 1,000 mg Documented By: MALU Labs 04/02/23 08:13 04/02/23 08:13 Labs: Laboratory Results - last 24 hr 04/02/23 08:13 MCV 97.7 MCH 31.3 MCHC 32.0 RDW 14.3 Plt Count 195 MPV 9.5 Immature Gran % (Auto) 0.5 H Neut % (Auto) 79.2 H Lymph % (Auto) 12.4 L Levy % (Auto) 7.5 Eos % (Auto) 0.2 Baso % (Auto) 0.2 Lymph # (Auto) 1.4 Levy # (Auto) 0.8 Eos # (Auto) 0.0 Baso # (Auto) 0.0 Abs Immat Gran (auto) 0.05 H Absolute Neuts (auto) 8.6 H Absolute Nucleated RBC 0.000 Nucleated RBC % (auto) 0.0 Anion Gap 12 Estim Creat Clear Calc 72.1 Estimated GFR > 60 Random Glucose 68 Calcium 9.6 D Microbiology Microbiology Results: Microbiology 04/01/23 06:43 Blood Culture - Preliminary Blood - Venous No growth after 24 hours. 04/01/23 06:46 Blood Culture - Preliminary Blood - Venous No growth after 24 hours. Assessment and Plan (1) Severe sepsis: Status: Acute (2) Fever: Status: Acute (3) Aspiration pneumonia: Status: Acute (4) Proctocolitis: Status: Acute Plan 66-year-old nonverbal male resident of longterm with autism, intellectual disability, OCD, bipolar disorder, seizure disorder, dysphagia, hypertension, hep B carrier, chronic constipation, nephrogenic diabetes insipidus, PICA, chronic normocytic anemia, CKD stage III, GERD, and recurrent aspiration pneumonia with g tube in place admitted for suspected aspiration pneumonia, meeting sepsis criteria # Sepsis 2/[address] chest without acute infectious abnormality, CT Abd\pelvis showed Proctatitis and ruled out any volvulus possibility Could have component of aspiration as well Continue IV zosyn (initiated 04/01) Pending cultures surgery team input appreciated # seizure disorder continue valproate # mood disorder continue citalopram, olanzapine # GERD continue PPI # prostatism continue finasteride, doxazosin # VTE prophylaxis: LMWH # code status: full I anticipate that the patient will stay overnight as an inpatient in the hospital due to the above reasons including severe sespsis with aspiration pneumonia requiring IV antibiotics, IV fluids, and close monitoring to prevent recurrent aspiration. Quality Stroke Does the patient have a stroke diagnosis?: No VTE Prior VTE?: No VTE Risk Level:: Medical - moderate - high VTE Device Contraindication: Treatment Not Indicated VTE Drug Contraindication: N/A - Med Ordered
[2023-04-02] MEDS: Acetaminophen Supp 650 MG SUPP.RECT PR (14:23)
[2023-04-02 15:06] VITALS: BMI 22.3
--- NOTE | 2023-04-02 15:10 | MHC.CLN ---
RE: CONSULT PT REQUIRES TF FOR NUTRITION SUPPORT FAMILIAR FROM PREVIOUS ADMISSIONS PT RECEIVING JEVITY 1.0 AT MAX GOAL RATE 70ML/HR WITH 240ML FREE WATER FLUSHES Q 6 HRS TO PROVIDE 1780KCALS (27KCALS/KG), 74G PROTEIN (1.1G/KG), 2363ML TOTAL WATER FROM FORMULA AND FLUSHES (36ML/KG) MONITOR TOLERANCE, RESIDUALS AND LYTES SEE ALOS FULL CLINICAL NUTRITION ASSESSMENT
[2023-04-02 15:47] VITALS: BP 111/60; PULSE 87; RESP 17; TEMP 36.3; O2SAT 97
--- NOTE | 2023-04-02 15:57 | PM.EVENT ---
Event Note Date of Service: 04/02/23 Event Note: pt seen on afternoon rounds appears comfortable abdomen soft, not distended, no apprent tenderness has been passing loose stools as well clinically not volvulus consider ffup KUB in AM tomorrow Time Spent With Patient Time: Total time managing care of this patient today ____ minutes.
[2023-04-02] MEDS: Enoxaparin Sodium 40 MG/0.4 ML SYRINGE SUBCUT (17:43)
[2023-04-02 19:20] VITALS: BP 125/65; PULSE 78; RESP 14; TEMP 36.1; O2SAT 97
[2023-04-02] MEDS: Docusate Sodium 100 MG/10 ML LIQUID G-TUBE (21:54)
[2023-04-02] MEDS: OLANZapine 10 MG TABLET 20 MG G-TUBE (21:54)
[2023-04-02 23:11] VITALS: BP 101/64; PULSE 74; RESP 14; TEMP 36.1; O2SAT 100
[2023-04-03] VITALS (7 sets, daily range): BP systolic 107–131; BP diastolic 67–80; PULSE 65–78; RESP 14–21; TEMP 35.9–36.7; O2SAT 97–99
[2023-04-03] MEDS: Piperacillin Sodium/Tazobactam 4.5 GM in 0.9 % Sodium Chloride 100 ML IV ×4 (04:05→22:30)
--- NOTE | 2023-04-03 05:00 | PC.NURSE ---
Pt nonverbal at baseline. [facility] caregiver at bedside for part of the shift, constant sticker on at bedside for the rest of the shift. Pt occasionally would attempt to bite sat probe or other wires and was able to be redirected. IVF infusing as ordered. IV ABT given as ordered per MAR. Multiple BMs this shift. G/T feed infusing overnight and brought to goal. Pt tolerating 70mls/hr with H2O flushed Q6H. See shift assessment for more details.
[2023-04-03] MEDS: Omeprazole/Na Bicarb Oral Susp 20 MG/10 ML UD Cup 40 MG G-TUBE (06:29)
--- NOTE | 2023-04-03 08:28 | PM.PNGS ---
Subjective Subjective Date of Service: 04/04/23 Interval history: No events reported Patient has been comfortable Per nursing staff, has had BMs Physical Exam Vital Signs: Vital Signs: Last Vital Signs Temp 97.3 F 04/03/23 07:11 Pulse 78 04/03/23 07:11 Resp 21 H 04/03/23 07:11 BP 130/80 04/03/23 07:11 Pulse Ox 98 04/03/23 07:11 O2 Del Method Room Air 04/03/23 07:11 O2 Flow Rate 1 04/01/23 14:49 BMI result Body Mass Index 22.3 Const: General: comfortable and no acute distress Resp: Effort & Inspection: normal respiratory effort Cardio: Rate: regular rate GI: Other: Peg tube in place, been soft, no guarding, no rebound, no apparent tenderness Objective Data Active Medications Acetaminophen (Acetaminophen Supp 650 Mg Supp.Rect) 650 mg [place] Q6H PRN PRN Reason: Pain, Mild, fever Last Admin: 04/02/23 14:23 Dose: 650 mg Documented By: MALU Docusate Sodium (Docusate Sodium 100 Mg/10 Ml Liquid) 100 mg G-TUBE BEDTIME [facility] Last Admin: 04/02/23 21:54 Dose: 100 mg Documented By: TERESA Enoxaparin Sodium (Enoxaparin Sodium 40 Mg/0.4 Ml Syringe) 40 mg SUBCUT Q24H [facility] Last Admin: 04/02/23 17:43 Dose: 40 mg Documented By: MALU Escitalopram Oxalate (Escitalopram Oxalate 10 Mg Tablet) 10 mg G-TUBE DAILY [facility] Last Admin: 04/02/23 09:51 Dose: 10 mg Documented By: MALU Escitalopram Oxalate (Escitalopram Oxalate 20 Mg Tablet) 20 mg G-TUBE DAILY [facility] Last Admin: 04/02/23 10:12 Dose: 20 mg Documented By: MALU Guaifenesin/Dextromethorphan (Guaifenesin Dm 100/10/5 Ml 5 Ml Syrup) 10 ml G-TUBE Q6H PRN PRN Reason: Cough Piperacillin Sod/Tazobactam (Sod 4.5 gm/ Sodium Chloride) 100 mls @ 200 mls/hr IV Q6H [facility] Last Infusion: 04/03/23 05:00 Dose: Infused Documented By: TERESA Sodium Chloride (Ns) 1,000 mls @ 100 mls/hr IVCONT .Q10H [facility] Last Admin: 04/02/23 21:54 Dose: 100 mls/hr Documented By: TERESA Loratadine (Loratadine 10 Mg Tablet) 10 mg G-TUBE DAILY [facility] Last Admin: 04/02/23 09:51 Dose: 10 mg Documented By: MALU Magnesium Hydroxide (Milk Of Magnesia 30 Ml Oral.Susp) 30 ml G-TUBE DAILY PRN PRN Reason: Constipation Nystatin (Nystatin Powder 15 Gm Bottle) 1 appl TOPICAL BID [facility]; Protocol Last Admin: 04/02/23 21:55 Dose: 1 appl Documented By: TERESA Olanzapine (Olanzapine 10 Mg Tablet) 10 mg G-TUBE DAILY [facility] Last Admin: 04/02/23 09:51 Dose: 10 mg Documented By: MALU Olanzapine (Olanzapine 10 Mg Tablet) 20 mg G-TUBE BEDTIME [facility] Last Admin: 04/02/23 21:54 Dose: 20 mg Documented By: TERESA Omeprazole (Omeprazole/Na Bicarb Oral Susp 20 Mg/10 Ml Ud Cup) 40 mg G-TUBE DAILY@0630 [facility] Last Admin: 04/03/23 06:29 Dose: 40 mg Documented By: TERESA Polyethylene Glycol (Polyethylene Glycol 3350 17 Gm Powd.Pack) 17 gm G-TUBE BID [facility] Last Admin: 04/02/23 21:44 Dose: Not Given Documented By: TERESA Non-Admin Reason: multiple BMs today Psyllium Hydrophilic Mucilloid (Psyllium Seed 3.7 Gm Packet) 3.7 gm PO BID@0800,1600 [facility] Last Admin: 04/02/23 17:43 Dose: 3.7 gm Documented By: MALU Simethicone (Simethicone Drops 40 Mg/0.6 Ml 15 Ml Drops.Susp) 40 mg G-TUBE TID@0800,1600,2000 [facility] Last Admin: 04/02/23 21:55 Dose: 40 mg Documented By: TERESA Sodium Chloride (0.9 % Sodium Chloride Flush 3 Ml Syringe) 3 ml IVFLUSH QSHIFT [facility] Last Admin: 04/02/23 22:33 Dose: Not Given Documented By: TERESA Non-Admin Reason: IV Running Valproic Acid (Valproic Acid (As Sodium Salt) 250 Mg/5 Ml Solution) 1,000 mg G-TUBE BID@0800,2000 [facility] Last Admin: 04/02/23 21:54 Dose: 1,000 mg Documented By: TERESA Labs 04/04/23 06:27 04/04/23 06:27 Labs: Laboratory Results - last 24 hr 04/02/23 08:13 MCV 97.7 MCH 31.3 MCHC 32.0 RDW 14.3 Plt Count 195 MPV 9.5 Immature Gran % (Auto) 0.5 H Neut % (Auto) 79.2 H Lymph % (Auto) 12.4 L Dawes % (Auto) 7.5 Eos % (Auto) 0.2 Baso % (Auto) 0.2 Lymph # (Auto) 1.4 Dawes # (Auto) 0.8 Eos # (Auto) 0.0 Baso # (Auto) 0.0 Abs Immat Gran (auto) 0.05 H Absolute Neuts (auto) 8.6 H Absolute Nucleated RBC 0.000 Nucleated RBC % (auto) 0.0 Anion Gap 12 Estim Creat Clear Calc 72.1 Estimated GFR > 60 Random Glucose 68 Calcium 9.6 D Microbiology Microbiology Results: Microbiology 04/01/23 06:43 Blood Culture - Preliminary Blood - Venous No growth after 24 hours. 04/01/23 06:46 Blood Culture - Preliminary Blood - Venous No growth after 24 hours. Procedures Date of Service Date of Service: 04/04/23 Progress Note: A&P Assessment and plan (1) Ileus: Status: Acute Assessment and Plan: Follow-up CT scan does not suggest volvulus Clinically benign exam, not consistent with volvulus Abdomen remained soft, benign, no guarding, no rebound, no apparent tenderness Consider follow-up x-ray Seems to be tolerating PEG tube feeds Time Spent With Patient Time: Total time managing care of this patient today ____ minutes. Quality Stroke Does the patient have a stroke diagnosis?: No VTE Prior VTE?: No VTE Risk Level:: Medical - moderate - high VTE Device Contraindication: Treatment Not Indicated VTE Drug Contraindication: N/A - Med Ordered
[2023-04-03 08:46] LABS: Hematocrit 32.2 % (42.0-52.0); Hemoglobin 10.2 g/dl (14.0-18.0); Mean Corpuscular HGB Conc 31.7 g/dl (31.0-36.0); Mean Corpuscular Hemoglobin 31.3 pg (27.0-33.0); Mean Corpuscular Volume 98.8 fL (80.0-98.0); Mean Platelet Volume 9.6 fL (9.4-12.4); Platelet Count 198 X10*3/uL (160-400); Red Blood Count 3.26 X10*6/uL (4.60-5.80); Red Cell Distribution Width 14.6 % (11.0-16.0); White Blood Count 7.4 X10*3/uL (4.8-10.8)
[2023-04-03] MEDS: 0.9 % Sodium Chloride 1,000 ML 100 ML IVCONT (08:54)
[2023-04-03 08:56] LABS: Anion Gap 10 (12-20); Blood Urea Nitrogen 17 mg/dL (9-16); Calcium 8.8 mg/dL (8.4-10.2); Carbon Dioxide 27 mmol/L (22-29); Chloride 116 mmol/L (96-108); Creatinine Clr Calc Pharmacy 69.1; Estimated Glomerular Filt Rate > 60; Glucose Random 99 mg/dL (60-115); Potassium 3.6 mmol/L (3.3-5.1); Sodium 149 mmol/L (135-145)
[2023-04-03] MEDS: Loratadine 10 MG TABLET G-TUBE (09:02)
[2023-04-03] MEDS: 0.9 % Sodium Chloride Flush 3 ML SYRINGE IVFLUSH (09:02)
[2023-04-03] MEDS: Escitalopram Oxalate 10 MG TABLET G-TUBE (09:02)
[2023-04-03] MEDS: OLANZapine 10 MG TABLET G-TUBE (09:02)
[2023-04-03] MEDS: Psyllium seed 3.7 GM PACKET PO (09:02)
[2023-04-03] MEDS: Escitalopram Oxalate 20 MG TABLET G-TUBE (09:03)
[2023-04-03] MEDS: Nystatin Powder 15 GM BOTTLE 1 APPL TOPICAL ×2 (09:27→20:50)
--- NOTE | 2023-04-03 10:28 | HO.PM.IMPN ---
Subjective Subjective Date of Service: 04/03/23 Interval History: no complaints Physical Exam Vital Signs: Vital Signs: Last Vital Signs Temp 97.3 F 04/03/23 07:11 Pulse 78 04/03/23 07:11 Resp 21 H 04/03/23 07:11 BP 130/80 04/03/23 07:11 Pulse Ox 98 04/03/23 07:11 O2 Del Method Room Air 04/03/23 07:11 O2 Flow Rate 1 04/01/23 14:49 BMI result Body Mass Index 22.3 Const: General: comfortable and no acute distress Resp: Effort & Inspection: normal respiratory effort Cardio: Rate: regular rate GI: Other: Peg tube in place, been soft, no guarding, no rebound, no apparent tenderness Objective Data Active Medications Acetaminophen (Acetaminophen Supp 650 Mg Supp.Rect) 650 mg [place] Q6H PRN PRN Reason: Pain, Mild, fever Last Admin: 04/02/23 14:23 Dose: 650 mg Documented By: MALU Docusate Sodium (Docusate Sodium 100 Mg/10 Ml Liquid) 100 mg G-TUBE BEDTIME [facility] Last Admin: 04/02/23 21:54 Dose: 100 mg Documented By: TERESA Enoxaparin Sodium (Enoxaparin Sodium 40 Mg/0.4 Ml Syringe) 40 mg SUBCUT Q24H [facility] Last Admin: 04/02/23 17:43 Dose: 40 mg Documented By: MALU Escitalopram Oxalate (Escitalopram Oxalate 10 Mg Tablet) 10 mg G-TUBE DAILY [facility] Last Admin: 04/03/23 09:02 Dose: 10 mg Documented By: MARIE Escitalopram Oxalate (Escitalopram Oxalate 20 Mg Tablet) 20 mg G-TUBE DAILY [facility] Last Admin: 04/03/23 09:03 Dose: 20 mg Documented By: MARIE Guaifenesin/Dextromethorphan (Guaifenesin Dm 100/10/5 Ml 5 Ml Syrup) 10 ml G-TUBE Q6H PRN PRN Reason: Cough Piperacillin Sod/Tazobactam (Sod 4.5 gm/ Sodium Chloride) 100 mls @ 200 mls/hr IV Q6H [facility] Last Infusion: 04/03/23 09:28 Dose: Infused Documented By: MARIE Dextrose (D5w) 1,000 mls @ 125 mls/hr IVCONT .Q8H [facility] Loratadine (Loratadine 10 Mg Tablet) 10 mg G-TUBE DAILY [facility] Last Admin: 04/03/23 09:02 Dose: 10 mg Documented By: MARIE Magnesium Hydroxide (Milk Of Magnesia 30 Ml Oral.Susp) 30 ml G-TUBE DAILY PRN PRN Reason: Constipation Nystatin (Nystatin Powder 15 Gm Bottle) 1 appl TOPICAL BID [facility]; Protocol Last Admin: 04/03/23 09:27 Dose: 1 appl Documented By: MARIE Olanzapine (Olanzapine 10 Mg Tablet) 10 mg G-TUBE DAILY [facility] Last Admin: 04/03/23 09:02 Dose: 10 mg Documented By: MARIE Olanzapine (Olanzapine 10 Mg Tablet) 20 mg G-TUBE BEDTIME [facility] Last Admin: 04/02/23 21:54 Dose: 20 mg Documented By: TERESA Omeprazole (Omeprazole/Na Bicarb Oral Susp 20 Mg/10 Ml Ud Cup) 40 mg G-TUBE DAILY@0630 [facility] Last Admin: 04/03/23 06:29 Dose: 40 mg Documented By: TERESA Polyethylene Glycol (Polyethylene Glycol 3350 17 Gm Powd.Pack) 17 gm G-TUBE BID [facility] Last Admin: 04/03/23 09:04 Dose: Not Given Documented By: MARIE Non-Admin Reason: diarrhea Psyllium Hydrophilic Mucilloid (Psyllium Seed 3.7 Gm Packet) 3.7 gm PO BID@0800,1600 [facility] Last Admin: 04/03/23 09:02 Dose: 3.7 gm Documented By: MARIE Simethicone (Simethicone Infant Drops 40 Mg/0.6 Ml 15 Ml Drops.Susp) 40 mg G-TUBE TID@0800,1600,1999 [facility] Last Admin: 04/03/23 09:24 Dose: 40 mg Documented By: MARIE Sodium Chloride (0.9 % Sodium Chloride Flush 3 Ml Syringe) 3 ml IVFLUSH QSHIFT [facility] Last Admin: 04/03/23 09:02 Dose: 3 ml Documented By: MARIE Valproic Acid (Valproic Acid (As Sodium Salt) 250 Mg/5 Ml Solution) 1,000 mg G-TUBE BID@08,1999 [facility] Last Admin: 04/02/23 21:54 Dose: 1,000 mg Documented By: TERESA Labs 04/03/23 08:10 04/03/23 08:10 Labs: Laboratory Results - last 24 hr 04/03/23 08:10 MCV 98.8 H MCH 31.3 MCHC 31.7 RDW 14.6 Plt Count 198 MPV 9.6 Absolute Nucleated RBC 0.000 Nucleated RBC % (auto) 0.0 Anion Gap 10 L Estim Creat Clear Calc 69.1 Estimated GFR > 60 Random Glucose 99 Calcium 8.8 D Microbiology Microbiology Results: Microbiology 04/01/23 06:43 Blood Culture - Preliminary Blood - Venous No growth after 48 hours. 04/01/23 06:46 Blood Culture - Preliminary Blood - Venous No growth after 48 hours. Assessment and Plan (1) Severe sepsis: Status: Acute (2) Fever: Status: Acute (3) Aspiration pneumonia: Status: Acute (4) Proctocolitis: Status: Acute Plan 66M nonverba, resident of [facility] with autism, intellectual disability, OCD, bipolar disorder, seizure disorder, dysphagia, hypertension, hep B carrier, chronic constipation, nephrogenic diabetes insipidus, PICA, chronic normocytic anemia, CKD stage III, GERD, and recurrent aspiration pneumonia with g tube in place admitted for suspected aspiration pneumonia, meeting sepsis criteria Sepsis 2/[address] chest without acute infectious abnormality, CT Abd\pelvis showed Proctatitis and ruled out any volvulus possibility Could have component of aspiration as well Continue IV zosyn (initiated 04/01) surgery team input appreciated seizure disorder continue valproate nephrogenic DI with hpyernatremia change fluids to d5w at 125, monitor mood disorder continue citalopram, olanzapine GERD continue PPI prostatism continue finasteride, doxazosin VTE prophylaxis: LMWH code status: full reason for continued hospitalization:hypernatremia Quality Stroke Does the patient have a stroke diagnosis?: No VTE Prior VTE?: No VTE Risk Level:: Medical - moderate - high VTE Device Contraindication: Treatment Not Indicated VTE Drug Contraindication: N/A - Med Ordered
--- NOTE | 2023-04-03 11:01 | MHC.CLN ---
F/U REVIEWED LABS PT TOLERATING TF WITH LOW RESIDUALS AND MAX GOAL RATE PER NSG PT RECEIVING JEVITY 1.0 AT MAX GOAL RATE 70ML/HR WITH 240ML FREE WATER FLUSHES Q 6 HRS TO PROVIDE 1780KCALS (27KCALS/KG), 74G PROTEIN (1.1G/KG), 2363ML TOTAL WATER FROM FORMULA AND FLUSHES (36ML/KG) MONITOR TOLERANCE, RESIDUALS AND LYTES
[2023-04-03] MEDS: Dextrose 5 % 1,000 ML 125 ML IVCONT ×2 (11:08→20:03)
--- NOTE | 2023-04-03 12:13 | MHC.CM.PN ---
GLORIA spoke to nurse, Sury, from [facility] who was here visiting pt., she gave me paperwork for provider to complete upon DC that is required by [facility]. Pt. will remain today. Dc plan is home via ambulance and resume 24 hr care.
--- NOTE | 2023-04-03 14:53 | PM.EVENT ---
Event Note Date of Service: 04/03/23 Event Note: Seen on afternoon rounds No events as per staff at bedside Has had BMs Abdomen remained soft, benign, no obvious tenderness KUB suggests question of small-bowel obstruction Clinically he seems to be not obstructed Okay to proceed with small-bowel series with Gastrografin Radiology stated may be easier for the patient to go for a CT scan with Gastrografin contrast by the PEG tube Time Spent With Patient Time: Total time managing care of this patient today ____ minutes.
[2023-04-03] MEDS: Diatrizoate Meglumine, Sodium 30 ML SOLUTION PO (17:45)
[2023-04-03] MEDS: Enoxaparin Sodium 40 MG/0.4 ML SYRINGE SUBCUT (17:51)
--- NOTE | 2023-04-03 18:19 | PC.NURSE ---
tube feed stopped at 14: 50 , oral contrast for CT scan via GTUBE , pt tolerated well . CT scan of the abdomen done and tube feed restarted at 18:00, no residuals in the stomach
--- NOTE | 2023-04-03 18:23 | PC.NURSE ---
attempted to call pt's guardian few time this afternoon to give updates , no answer on the other side .
--- NOTE | 2023-04-03 20:59 | PC.NURSE ---
patient had extra large BM tonight
[2023-04-03] MEDS: Docusate Sodium 100 MG/10 ML LIQUID G-TUBE (22:18)
[2023-04-03] MEDS: polyethylene glycoL 3350 17 GM POWD.PACK G-TUBE (22:18)
[2023-04-03] MEDS: OLANZapine 10 MG TABLET 20 MG G-TUBE (22:18)
[2023-04-04 03:35] VITALS: BP 108/58; PULSE 80; RESP 18; TEMP 36.6; O2SAT 97
[2023-04-04] MEDS: Dextrose 5 % 1,000 ML 125 ML IVCONT ×2 (04:03→13:29)
[2023-04-04] MEDS: Piperacillin Sodium/Tazobactam 4.5 GM in 0.9 % Sodium Chloride 100 ML IV ×4 (04:03→21:45)
[2023-04-04] MEDS: Omeprazole/Na Bicarb Oral Susp 20 MG/10 ML UD Cup 40 MG G-TUBE (05:43)
[2023-04-04 07:08] LABS: Hematocrit 29.6 % (42.0-52.0); Hemoglobin 9.6 g/dl (14.0-18.0); Mean Corpuscular HGB Conc 32.4 g/dl (31.0-36.0); Mean Corpuscular Hemoglobin 31.2 pg (27.0-33.0); Mean Corpuscular Volume 96.1 fL (80.0-98.0); Mean Platelet Volume 9.5 fL (9.4-12.4); Platelet Count 168 X10*3/uL (160-400); Red Blood Count 3.08 X10*6/uL (4.60-5.80); Red Cell Distribution Width 14.2 % (11.0-16.0); White Blood Count 4.9 X10*3/uL (4.8-10.8)
[2023-04-04 07:20] VITALS: BP 96/62; PULSE 62; RESP 20; TEMP 36.2; O2SAT 98
[2023-04-04 07:28] LABS: Anion Gap 11 (12-20); Blood Urea Nitrogen 12 mg/dL (9-16); Calcium 8.6 mg/dL (8.4-10.2); Carbon Dioxide 25 mmol/L (22-29); Chloride 111 mmol/L (96-108); Creatinine Clr Calc Pharmacy 78.1; Estimated Glomerular Filt Rate > 60; Glucose Fasting 118 mg/dL (60-99); Potassium 3.5 mmol/L (3.3-5.1); Sodium 143 mmol/L (135-145)
[2023-04-04] MEDS: Psyllium seed 3.7 GM PACKET PO ×2 (08:40→15:52)
[2023-04-04] MEDS: OLANZapine 10 MG TABLET G-TUBE (08:40)
[2023-04-04] MEDS: Loratadine 10 MG TABLET G-TUBE (08:40)
[2023-04-04] MEDS: polyethylene glycoL 3350 17 GM POWD.PACK G-TUBE ×2 (08:40→20:46)
[2023-04-04] MEDS: Escitalopram Oxalate 20 MG TABLET G-TUBE (08:40)
[2023-04-04] MEDS: Escitalopram Oxalate 10 MG TABLET G-TUBE (08:40)
[2023-04-04] MEDS: Nystatin Powder 15 GM BOTTLE 1 APPL TOPICAL ×2 (08:41→20:46)
--- NOTE | 2023-04-04 10:12 | P.PNIM_ITS ---
Subjective Subjective Date of Service: 04/04/23 Interval History: no complaints Physical Exam 2 Vital Signs: Vital Signs: Last Vital Signs Temp 97.2 F 04/04/23 07:20 Pulse 62 04/04/23 07:20 Resp 20 04/04/23 07:20 BP 96/62 04/04/23 07:20 Pulse Ox 98 04/04/23 07:20 O2 Del Method Room Air 04/04/23 07:20 O2 Flow Rate 1 04/01/23 14:49 BMI result Body Mass Index 22.3 Const: General: comfortable and no acute distress Resp: Effort & Inspection: normal respiratory effort Cardio: Rate: regular rate GI: Other: Peg tube in place, been soft, no guarding, no rebound, no apparent tenderness Objective Data Active Medications Acetaminophen (Acetaminophen Supp 650 Mg Supp.Rect) 650 mg [place] Q6H PRN PRN Reason: Pain, Mild, fever Last Admin: 04/02/23 14:23 Dose: 650 mg Documented By: MALU Docusate Sodium (Docusate Sodium 100 Mg/10 Ml Liquid) 100 mg G-TUBE BEDTIME [facility] Last Admin: 04/03/23 22:18 Dose: 100 mg Documented By: IRIS Enoxaparin Sodium (Enoxaparin Sodium 40 Mg/0.4 Ml Syringe) 40 mg SUBCUT Q24H [facility] Last Admin: 04/03/23 17:51 Dose: 40 mg Documented By: IRIS Escitalopram Oxalate (Escitalopram Oxalate 10 Mg Tablet) 10 mg G-TUBE DAILY [facility] Last Admin: 04/04/23 08:40 Dose: 10 mg Documented By: LILA Escitalopram Oxalate (Escitalopram Oxalate 20 Mg Tablet) 20 mg G-TUBE DAILY [facility] Last Admin: 04/04/23 08:40 Dose: 20 mg Documented By: LILA Guaifenesin/Dextromethorphan (Guaifenesin Dm 100/10/5 Ml 5 Ml Syrup) 10 ml G- TUBE Q6H PRN PRN Reason: Cough Piperacillin Sod/Tazobactam (Sod 4.5 gm/ Sodium Chloride) 100 mls @ 200 mls/hr IV Q6H [facility] Last Admin: 04/04/23 08:56 Dose: 200 mls/hr Documented By: LILA Dextrose (D5w) 1,000 mls @ 125 mls/hr IVCONT .Q8H [facility] Last Admin: 04/04/23 04:03 Dose: 125 mls/hr Documented By: SAKINA Loratadine (Loratadine 10 Mg Tablet) 10 mg G-TUBE DAILY [facility] Last Admin: 04/04/23 08:40 Dose: 10 mg Documented By: LILA Magnesium Hydroxide (Milk Of Magnesia 30 Ml Oral.Susp) 30 ml G-TUBE DAILY PRN PRN Reason: Constipation Nystatin (Nystatin Powder 15 Gm Bottle) 1 appl TOPICAL BID [facility]; Protocol Last Admin: 04/04/23 08:41 Dose: 1 appl Documented By: LILA Olanzapine (Olanzapine 10 Mg Tablet) 10 mg G-TUBE DAILY [facility] Last Admin: 04/04/23 08:40 Dose: 10 mg Documented By: LILA Olanzapine (Olanzapine 10 Mg Tablet) 20 mg G-TUBE BEDTIME [facility] Last Admin: 04/03/23 22:18 Dose: 20 mg Documented By: IRIS Omeprazole (Omeprazole/Na Bicarb Oral Susp 20 Mg/10 Ml Ud Cup) 40 mg G-TUBE DAILY@0630 [facility] Last Admin: 04/04/23 05:43 Dose: 40 mg Documented By: SAKINA Polyethylene Glycol (Polyethylene Glycol 3350 17 Gm Powd.Pack) 17 gm G-TUBE BID [facility] Last Admin: 04/04/23 08:40 Dose: 17 gm Documented By: LILA Psyllium Hydrophilic Mucilloid (Psyllium Seed 3.7 Gm Packet) 3.7 gm PO BID@0800,1600 [facility] Last Admin: 04/04/23 08:40 Dose: 3.7 gm Documented By: LILA Simethicone (Simethicone Drops 40 Mg/0.6 Ml 15 Ml Drops.Susp) 40 mg G- TUBE TID@0800,1600,2000 [facility] Last Admin: 04/04/23 09:03 Dose: 40 mg Documented By: LILA Sodium Chloride (0.9 % Sodium Chloride Flush 3 Ml Syringe) 3 ml IVFLUSH QSHIFT [facility] Last Admin: 04/04/23 08:42 Dose: Not Given Documented By: LILA Non-Admin Reason: IV Running Valproic Acid (Valproic Acid (As Sodium Salt) 250 Mg/5 Ml Solution) 1,000 mg G- TUBE BID@0800,1999 [facility] Last Admin: 04/04/23 08:40 Dose: 1,000 mg Documented By: LILA Labs 04/04/23 06:27 04/04/23 06:27 Labs: Laboratory Results - last 24 hr 04/04/23 06:27 MCV 96.1 MCH 31.2 MCHC 32.4 RDW 14.2 Plt Count 168 MPV 9.5 Absolute Nucleated RBC 0.000 Nucleated RBC % (auto) 0.0 Anion Gap 11 L Estim Creat Clear Calc 78.1 Estimated GFR > 60 Fasting Glucose 118 H Calcium 8.6 Microbiology Microbiology Results: Microbiology 04/01/23 06:43 Blood Culture - Preliminary Blood - Venous No growth after 48 hours. 04/01/23 06:46 Blood Culture - Preliminary Blood - Venous No growth after 48 hours. Assessment and Plan (1) Severe sepsis: Status: Acute (2) Fever: Status: Acute (3) Aspiration pneumonia: Status: Acute (4) Proctocolitis: Status: Acute Plan 66M nonverba, [facility], intellectual disability, OCD, bipolar disorder, seizure disorder, dysphagia, hypertension, hep B carrier, chronic constipation, nephrogenic diabetes insipidus, PICA, chronic normocytic anemia, CKD stage III, GERD, and recurrent aspiration pneumonia with g tube in place admitted for suspected aspiration pneumonia, meeting sepsis criteria Sepsis 2/[address] chest without acute infectious abnormality, CT Abd\pelvis showed Proctatitis and ruled out any volvulus possibility Could have component of aspiration as well Continue IV zosyn (initiated 04/01) surgery team input appreciated - follow up repeat ct abd with contrast seizure disorder continue valproate nephrogenic DI with hpyernatremia resolved, monitor mood disorder continue citalopram, olanzapine GERD continue PPI prostatism continue finasteride, doxazosin VTE prophylaxis: LMWH code status: full reason for continued hospitalization:hypernatremia Quality Stroke Does the patient have a stroke diagnosis?: No VTE Prior VTE?: No VTE Risk Level:: Medical - moderate - high VTE Device Contraindication: Treatment Not Indicated VTE Drug Contraindication: N/A - Med Ordered
[2023-04-04 11:44] VITALS: BP 92/72; PULSE 68; RESP 20; TEMP 36.7; O2SAT 98
[2023-04-04] MEDS: 0.9 % Sodium Chloride 500 ML IV (12:27)
--- NOTE | 2023-04-04 12:40 | P.PNGS_ITS ---
Subjective Subjective Date of Service: 04/09/23 Interval history: no events reported tolerating PEG feeds has had BMs Physical Exam 2 Vital Signs: Vital Signs: Last Vital Signs Temp 98.1 F 04/04/23 11:44 Pulse 68 04/04/23 11:44 Resp 20 04/04/23 11:44 BP 92/72 04/04/23 11:44 Pulse Ox 98 04/04/23 11:44 O2 Del Method Room Air 04/04/23 11:44 O2 Flow Rate 1 04/01/23 14:49 BMI result Body Mass Index 22.3 Const: General: comfortable and no acute distress Resp: Effort & Inspection: normal respiratory effort Cardio: Rate: regular rate GI: Palpation (GI): Soft to palpation, not firm, nontender and no guarding Objective Data Active Medications Acetaminophen (Acetaminophen Supp 650 Mg Supp.Rect) 650 mg [place] Q6H PRN PRN Reason: Pain, Mild, fever Last Admin: 04/02/23 14:23 Dose: 650 mg Documented By: MALU Docusate Sodium (Docusate Sodium 100 Mg/10 Ml Liquid) 100 mg G-TUBE BEDTIME [facility] Last Admin: 04/03/23 22:18 Dose: 100 mg Documented By: IRIS Enoxaparin Sodium (Enoxaparin Sodium 40 Mg/0.4 Ml Syringe) 40 mg SUBCUT Q24H [facility] Last Admin: 04/03/23 17:51 Dose: 40 mg Documented By: IRIS Escitalopram Oxalate (Escitalopram Oxalate 10 Mg Tablet) 10 mg G-TUBE DAILY [facility] Last Admin: 04/04/23 08:40 Dose: 10 mg Documented By: LILA Escitalopram Oxalate (Escitalopram Oxalate 20 Mg Tablet) 20 mg G-TUBE DAILY [facility] Last Admin: 04/04/23 08:40 Dose: 20 mg Documented By: LILA Guaifenesin/Dextromethorphan (Guaifenesin Dm 100/10/5 Ml 5 Ml Syrup) 10 ml G- TUBE Q6H PRN PRN Reason: Cough Piperacillin Sod/Tazobactam (Sod 4.5 gm/ Sodium Chloride) 100 mls @ 200 mls/hr IV Q6H [facility] Last Infusion: 04/04/23 09:30 Dose: Infused Documented By: LILA Dextrose (D5w) 1,000 mls @ 125 mls/hr IVCONT .Q8H [facility] Last Admin: 04/04/23 04:03 Dose: 125 mls/hr Documented By: SAKINA Sodium Chloride (Ns) 500 mls @ 500 mls/hr IV .Q1H [facility] Stop: 04/04/23 12:59 Last Admin: 04/04/23 12:27 Dose: 500 mls/hr Documented By: LILA Loratadine (Loratadine 10 Mg Tablet) 10 mg G-TUBE DAILY [facility] Last Admin: 04/04/23 08:40 Dose: 10 mg Documented By: LILA Magnesium Hydroxide (Milk Of Magnesia 30 Ml Oral.Susp) 30 ml G-TUBE DAILY PRN PRN Reason: Constipation Nystatin (Nystatin Powder 15 Gm Bottle) 1 appl TOPICAL BID [facility]; Protocol Last Admin: 04/04/23 08:41 Dose: 1 appl Documented By: LILA Olanzapine (Olanzapine 10 Mg Tablet) 10 mg G-TUBE DAILY [facility] Last Admin: 04/04/23 08:40 Dose: 10 mg Documented By: LILA Olanzapine (Olanzapine 10 Mg Tablet) 20 mg G-TUBE BEDTIME [facility] Last Admin: 04/03/23 22:18 Dose: 20 mg Documented By: IRIS Omeprazole (Omeprazole/Na Bicarb Oral Susp 20 Mg/10 Ml Ud Cup) 40 mg G-TUBE DAILY@0630 [facility] Last Admin: 04/04/23 05:43 Dose: 40 mg Documented By: SAKINA Polyethylene Glycol (Polyethylene Glycol 3350 17 Gm Powd.Pack) 17 gm G-TUBE BID [facility] Last Admin: 04/04/23 08:40 Dose: 17 gm Documented By: LILA Psyllium Hydrophilic Mucilloid (Psyllium Seed 3.7 Gm Packet) 3.7 gm PO BID@0800,1600 [facility] Last Admin: 04/04/23 08:40 Dose: 3.7 gm Documented By: LILA Simethicone (Simethicone Drops 40 Mg/0.6 Ml 15 Ml Drops.Susp) 40 mg G- TUBE TID@0800,1600,2000 [facility] Last Admin: 04/04/23 09:03 Dose: 40 mg Documented By: LILA Sodium Chloride (0.9 % Sodium Chloride Flush 3 Ml Syringe) 3 ml IVFLUSH QSHIFT [facility] Last Admin: 04/04/23 08:42 Dose: Not Given Documented By: LILA Non-Admin Reason: IV Running Valproic Acid (Valproic Acid (As Sodium Salt) 250 Mg/5 Ml Solution) 1,000 mg G- TUBE BID@0800,1999 [facility] Last Admin: 04/04/23 08:40 Dose: 1,000 mg Documented By: LILA Labs 04/05/23 06:11 04/05/23 06:11 Labs: Laboratory Results - last 24 hr 04/04/23 06:27 MCV 96.1 MCH 31.2 MCHC 32.4 RDW 14.2 Plt Count 168 MPV 9.5 Absolute Nucleated RBC 0.000 Nucleated RBC % (auto) 0.0 Anion Gap 11 L Estim Creat Clear Calc 78.1 Estimated GFR > 60 Fasting Glucose 118 H Calcium 8.6 Microbiology Microbiology Results: Microbiology 04/01/23 06:43 Blood Culture - Preliminary Blood - Venous No growth after 48 hours. 04/01/23 06:46 Blood Culture - Preliminary Blood - Venous No growth after 48 hours. Procedures Date of Service Date of Service: 04/09/23 Progress Note: A&P Assessment and plan (1) Ileus: Status: Acute Assessment and Plan: Abdomen remains very soft and benign Tolerating PEG tube feeds Has had BMs CT reviewed - fluid-filled dilated rectal vault, not consistent with volvulus - no official report Clinically not obstructed Exam remains very benign Will continue to follow Time Spent With Patient Time: Total time managing care of this patient today ____ minutes. Quality Stroke Does the patient have a stroke diagnosis?: No VTE Prior VTE?: No VTE Risk Level:: Medical - moderate - high VTE Device Contraindication: Treatment Not Indicated VTE Drug Contraindication: N/A - Med Ordered
[2023-04-04] MEDS: 0.9 % Sodium Chloride Flush 3 ML SYRINGE IVFLUSH ×2 (15:52→20:46)
[2023-04-04 16:00] VITALS: BP 105/58; PULSE 75; RESP 16; TEMP 37.3; O2SAT 96
[2023-04-04] MEDS: Enoxaparin Sodium 40 MG/0.4 ML SYRINGE SUBCUT (17:31)
[2023-04-04 20:00] VITALS: BP 94/55; PULSE 66; RESP 18; TEMP 36.8; O2SAT 97
[2023-04-04] MEDS: Docusate Sodium 100 MG/10 ML LIQUID G-TUBE (20:45)
[2023-04-04] MEDS: OLANZapine 10 MG TABLET 20 MG G-TUBE (20:46)
[2023-04-05] VITALS: BP 107/55; PULSE 66; RESP 20; TEMP 36.8; O2SAT 95
[2023-04-05] MEDS: Piperacillin Sodium/Tazobactam 4.5 GM in 0.9 % Sodium Chloride 100 ML IV (03:32)
[2023-04-05 03:59] VITALS: BP 146/58; PULSE 73; RESP 18; TEMP 37; O2SAT 94
[2023-04-05] MEDS: Omeprazole/Na Bicarb Oral Susp 20 MG/10 ML UD Cup 40 MG G-TUBE (05:30)
[2023-04-05 06:50] LABS: Hematocrit 30.5 % (42.0-52.0); Hemoglobin 10.1 g/dl (14.0-18.0); Mean Corpuscular HGB Conc 33.1 g/dl (31.0-36.0); Mean Corpuscular Hemoglobin 31.7 pg (27.0-33.0); Mean Corpuscular Volume 95.6 fL (80.0-98.0); Mean Platelet Volume 9.7 fL (9.4-12.4); Platelet Count 169 X10*3/uL (160-400); Red Blood Count 3.19 X10*6/uL (4.60-5.80); Red Cell Distribution Width 14.2 % (11.0-16.0); White Blood Count 4.8 X10*3/uL (4.8-10.8)
[2023-04-05 07:05] LABS: Anion Gap 9 (12-20); Blood Urea Nitrogen 13 mg/dL (9-16); Calcium 8.8 mg/dL (8.4-10.2); Carbon Dioxide 30 mmol/L (22-29); Chloride 110 mmol/L (96-108); Creatinine Clr Calc Pharmacy 77.2; Estimated Glomerular Filt Rate > 60; Glucose Fasting 102 mg/dL (60-99); Potassium 3.9 mmol/L (3.3-5.1); Sodium 145 mmol/L (135-145)
[2023-04-05] MEDS: Nystatin Powder 15 GM BOTTLE 1 APPL TOPICAL (07:35)
[2023-04-05] MEDS: Escitalopram Oxalate 20 MG TABLET G-TUBE (07:37)
[2023-04-05] MEDS: Escitalopram Oxalate 10 MG TABLET G-TUBE (07:37)
[2023-04-05] MEDS: Psyllium seed 3.7 GM PACKET PO (07:37)
[2023-04-05] MEDS: OLANZapine 10 MG TABLET G-TUBE (07:37)
[2023-04-05] MEDS: polyethylene glycoL 3350 17 GM POWD.PACK G-TUBE (07:37)
[2023-04-05] MEDS: Loratadine 10 MG TABLET G-TUBE (07:37)
[2023-04-05 07:45] VITALS: BP 91/55; PULSE 71; RESP 17; TEMP 36.8; O2SAT 95
[2023-04-05] MEDS: 0.9 % Sodium Chloride Flush 3 ML SYRINGE IVFLUSH (07:46)
--- NOTE | 2023-04-05 09:14 | PM.DS ---
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 Pt is nonverbal and [facility] staff member, Jossie, is unable to provide much additional history. On arrival, pt febrile to 101.5, tachycardic to 114. No hypoxia. he was hypotensive but responded well to IVF. There is a leukocytosis of 14.9. Renal function baseline, lytes normal. Lactic acid 1.9. UA unremarkable. Negative fro COVID-19, flu. CXr negative. Chest CT shows improved tree-in- bud nodularlity in R lung and decrease in atelectasis or airspace disease in posterior right lower lobe. There is a 0.6cm nodule R upper lobe. Ct abd/pelvis shows chronic gaseous distention of the colon possibly representing presence of ileus/pseudoobstruction as well as new clockwise tristing of the mesentery along the descending colon possibly representing partial volvulus with subtle haziness of the mesenteric fat. In the ED, has received 1.9ml IV NS, 1L bolus IV LR, albumin x2, IV zosyn. hospital course: Patient was admitted for sepsis secondary to proctocolitis as well as possible aspiration pneumonia. He was treated with IV Zosyn and sepsis resolved. On discharge will continue on Augmentin. Repeat CT showed resolution. For seizure disorder was continued on valproic. For nephrogenic DI with hypernatremia was given D5W and hypernatremia resolved should continue with free fluids in G-tube for mood disorder was continued on citalopram and olanzapine. For GERD was continued on PPI. For BPH was continued on finasteride and doxazosin. [facility] to [facility] Time Attestation Discharge coordination time: Greater than 30 minutes Quality: Safe Use of Opioids Does Pt have an Active Cancer Diagnosis on the Problem List?: No Quality: Stroke Does the patient have a stroke diagnosis?: No Physical Exam Vital Signs: Vital Signs: Last Vital Signs Temp 98.2 F 04/05/23 07:45 Pulse 71 04/05/23 07:45 Resp 17 04/05/23 07:45 BP 91/55 L 04/05/23 07:45 Pulse Ox 95 04/05/23 07:45 O2 Del Method Room Air 04/05/23 07:45 O2 Flow Rate 1 04/01/23 14:49 BMI result Body Mass Index 22.3 Const: General: comfortable and no acute distress Resp: Effort & Inspection: normal respiratory effort Cardio: Rate: regular rate GI: Palpation (GI): Soft to palpation, not firm, nontender and no guarding DS: Data Data Completed and Pending Completed studies during hospitalization [Text1]: Procedures Insertion of Feeding Device into Stomach, Percutaneous Approach (01/02/22) Labs on day of discharge: Laboratory Results - last 24 hr 04/05/23 06:11 WBC 4.8 RBC 3.19 L Hgb 10.1 L Hct 30.5 L MCV 95.6 MCH 31.7 MCHC 33.1 RDW 14.2 Plt Count 169 MPV 9.7 Absolute Nucleated RBC 0.000 Nucleated RBC % (auto) 0.0 Sodium 145 Potassium 3.9 Chloride 110 H Carbon Dioxide 30 H Anion Gap 9 L BUN 13 Creatinine 0.86 Estim Creat Clear Calc 77.2 Estimated GFR > 60 Fasting Glucose 102 H Calcium 8.8 Preliminary micro results at discharge 04/01/23 06:43 Blood Culture - Preliminary Blood - Venous No growth after 48 hours. 04/01/23 06:46 Blood Culture - Preliminary Blood - Venous No growth after 48 hours. Discharge Plan Discharge Anticipated Discharge Date/Time: 04/05/23 09:07 Patient Disposition: Xfer Other Discharge Diagnosis: aspiration, proctocolitis Referrals: Medardo Duron MD [Primary Care Provider] - 1 Week Discharge Medications: New amoxicillin-pot clavulanate 600-42.9 mg/5 mL suspension for reconstitution 5 ml feeding tube BID Qty: 75 0RF Continued bacitracin zinc 500 unit/gram ointment 1 appl topical BID PRN (Reason: Wound Care) acetaminophen 325 mg tablet 650 mg feeding tube Q6H PRN (Reason: Pain) Qty: 60 0RF dextromethorphan-guaifenesin 10-100 mg/5 mL Liquid 10 ml feeding tube Q6H PRN (Reason: Cough) Qty: 500 0RF olanzapine 10 mg tablet 10 mg feeding tube DAILY Qty: 60 0RF magnesium hydroxide [Milk of Magnesia] 400 mg/5 mL suspension 30 ml feeding tube DAILY PRN (Reason: Constipation) Qty: 355 0RF simethicone [Gas Relief (simethicone)] 40 mg/0.6 mL drops,suspension 40 mg feeding tube TID@0800,1600,2000 Qty: 30 0RF polyethylene glycol 3350 17 gram/dose powder 17 g feeding tube BID Qty: 510 0RF Rx Instructions: hold if more than 3 BM's in 1 day olanzapine 20 mg tablet 20 mg feeding tube BEDTIME Qty: 30 0RF loratadine 10 mg tablet 10 mg feeding tube DAILY Qty: 60 0RF omeprazole 20 mg capsule,delayed release(DR/EC) 40 mg feeding tube DAILY@0630 Rx Instructions: needs to be given with water juice or snack docusate sodium 60 mg/15 mL syrup 100 mg feeding tube BEDTIME psyllium Powder 1 tbsp feeding tube BID@0800,1600 Rx Instructions: mix into at least 8 oz of water or juice before administering valproic acid (as sodium salt) 250 mg/5 mL solution 1,000 mg feeding tube BID@0800,2000 citalopram 40 mg tablet 40 mg feeding tube DAILY citalopram 20 mg tablet 20 mg feeding tube DAILY finasteride 5 mg tablet 5 mg feeding tube DAILY nystatin 100,000 unit/gram powder 1 appl topical BID (DME) #18 MACKENZIE gastrostomy feeding #18 [place] See Rx Instructions .Route .MEDSUPPLY Qty: 1 0RF Rx Instructions: Every 6 months Discharge Orders: Discharge Order (Routine); Ordered 04/05/23 Ordered By: Ron Jarvis Diet: tube feeds Activity on Discharge: As tolerated Stand Alone Forms: Patient Portal Discharge page Care Plan Goals: recovery Health Concerns: colitis, aspiration Plan of Treatment: augmentin Assessment: see above
--- NOTE | 2023-04-05 10:30 | MHC.CM.PN ---
Second IMM 04/05, given verbally to pts guardian Sherry, copy to be sent via certified mail. Pt is medically cleared for D/C back to [facility] today via NARCISOS/Estephanie at 1pm today. Signed [facility] orders faxed to [facility] at [phone].
[2023-04-05 11:26] VITALS: BP 98/54; PULSE 64; RESP 16; TEMP 36.6; O2SAT 96
== END 2023-04-05 13:53 | disposition other institution (70) | DRG 871 ==
LOC: HO.ED 11:03 → HO.EDOVER 15:25 → HO.S3 15:51 → HO.IMC 17:13
PROVIDERS: Physician Assistant; Student in an Organized Health Care Education/Training Program; Admitting Provider Physician Assistant; Emergency Provider Emergency Medicine; PCP Internal Medicine; Visit Provider Internal Medicine
DX: A41.9 Sepsis, unspecified organism (principal); J69.0 Pneumonitis due to inhalation of food and vomit; E87.0 Hyperosmolality and hypernatremia; F84.0 Autistic disorder; N25.1 Nephrogenic diabetes insipidus; R13.10 Dysphagia, unspecified; G40.909 Epilepsy, unspecified, not intractable, without status epilepticus; D63.1 Anemia in chronic kidney disease; K52.9 Noninfective gastroenteritis and colitis, unspecified; N18.30 Chronic kidney disease, stage 3 unspecified; K21.9 Gastro-esophageal reflux disease without esophagitis; N40.0 Benign prostatic hyperplasia without lower urinary tract symptoms; R65.20 Severe sepsis without septic shock; Z93.1 Gastrostomy status; Z20.822 Contact with and (suspected) exposure to COVID-19; Z79.899 Other long term (current) drug therapy
CPT/HCPCS: 36415; 71045; 71250; 74018; 74176; 80048; 80076; 81003; 82140; 82947; 83605; 83690; 83735; 83880; 84484; 85025; 85027; 87040; 87502; 87635; 93005; 99285; J1650; J2543; J7120; P9047

== ENCOUNTER → 2023-04-01 07:07 | Outpatient (BNV) | payer MEDICARE, MEDICAID, SELFPAY | PROVIDERS: Admitting Provider Physician Assistant; Emergency Provider Emergency Medicine; PCP Internal Medicine; Visit Provider Internal Medicine Cardiovascular Disease | DX: R53.1 Weakness (principal); R94.31 Abnormal electrocardiogram [ECG] [EKG]; R41.82 Altered mental status, unspecified | CPT/HCPCS: 93010 ==

== ENCOUNTER → 2023-04-01 15:17 | Outpatient (BNV) | payer MEDICARE, MEDICAID, SELFPAY | PROVIDERS: Admitting Provider Physician Assistant; Emergency Provider Emergency Medicine; PCP Internal Medicine; Visit Provider Surgery | DX: K56.7 Ileus, unspecified (principal) | CPT/HCPCS: 99222; 99232; 99499 ==

== ENCOUNTER → 2023-04-01 15:17 | Outpatient (BNV) | payer MEDICARE, MEDICAID, SELFPAY | PROVIDERS: Admitting Provider Physician Assistant; Emergency Provider Emergency Medicine; PCP Internal Medicine; Visit Provider Physician Assistant | DX: K56.7 Ileus, unspecified (principal) | CPT/HCPCS: 99223; 99232; 99233; 99238 ==

== ENCOUNTER 2023-05-02 09:08 | Outpatient (AMB) | payer MEDICARE, MEDICAID, SELFPAY ==
--- NOTE | 2023-05-02 09:08 | A.OFFVIS_ITS ---
Intake Intake Visit Reasons: H&P Hydrocelectomy Intake Note: Patient presents today for a telehealth follow-up on H@P Hydrocelectomy Meds- Finasteride Allergies to Antibiotic- No Known Allergies Blood Thinner- None Rouge Sifter And Miller Required: No Allergies haloperidol [From HALDOL] Adverse Reaction (Unknown, Verified 05/02/23 09:10) UNKNOWN metoclopramide [From REGLAN] Adverse Reaction (Unknown, Verified 05/02/23 09:10) UNKNOWN HPI HPI Comments History of Present Illness Details Mingo is a nonverbal? resident of a group house with developmental delay. They are a patient of Dr.? Rangel. They are seen in the office today for the following urologic conditions - nocturia - bladder outlet obstruction - hydrocele Telemedicine Evaluation 15 min Consultation Silent Communication Jesus Video attempted Questions answered regarding dressing care and postoperative expectations Recurrent left hydrocele Suggest hydrocelectomy Large hydrocele Discussed with sister Sherry who is his healthcare proxy [phone] Bladder outlet obstruction Has done well with combination therapy ?On exam has large left hydrocele ?Recommendation for hydrocelectomy ?Discussed with case work. ? Current visit is for?initial symptom evaluation of, lower urinary tract symptoms, predominate irritative symptoms.? - G tube placement for feeding ? Current treatment includes finasteride - previously had been on doxazosin and tamsulosin but had blood pressure issues ? Symptoms include?incomplete emptying, nocturia (>2), and are progressing.? Treatment plan?- maintain finasteride [facility] Medical History Severe sepsis Dysphagia Pica Seizures BPH (benign prostatic hyperplasia) Dysphagia Pneumonia Mentally challenged Developmental non-verbal disorder Autism Hydrocele Chronic renal disease Hyperlipemia Anemia Hypertension Hiatal hernia GERD (gastroesophageal reflux disease) OCD (obsessive compulsive disorder) Bipolar 1 disorder Surgical History History of colectomy H/O exploratory laparotomy Social History Household Members: Other Household Members Other:: [facility], [facility] Housing: Other Housing Other:: [facility] Do you presently have visiting nurse or other home services: Yes Unable to assess alcohol history related to: Unable to respond Alcohol intake: never Comment: [facility] home caregiver at bedside Patient Tobacco Use Status: Never used Tobacco Advance Directives Date on File: 12/24/21 service: No Current occupational status: disabled Review of Systems Const All systems reviewed & are unremarkable except as noted in HPI and below Reports no additional complaints Resp Reports no additional complaints GI Reports no additional complaints Reports as per HPI Musc Reports no additional complaints Physical Exam Telemedicine evaluation Appropriate responses Regular breathing rate and rhythm HEENT Head: Yes normal to inspection Ears: hearing grossly normal bilaterally Eyes General: appearance normal, both eyes and all related structures Neck Neck: Yes normal visual inspection Chest Chest palpation & inspection: normal inspection of the chest Resp Effort & Inspection: normal respiratory effort and able to speak in complete sentences Assessment & Plan Assessment & Plan (1) Hydrocele: Code(s): N43.3 - Hydrocele, unspecified Qualifiers: Hydrocele type: unspecified Qualified Code(s): N43.3 - Hydrocele, unspecified (2) Bladder outlet obstruction: Code(s): N32.0 - Bladder-neck obstruction Plan Plan left hydrocelectomy Patient Instructions: Imaging studies, laboratory and physical exam results were discussed and reviewed in detail. No major barriers to patient understanding were identified. An opportunity to ask questions regarding the treatment plan was provided. All questions were answered. The patient expressed understanding and agreement with the above treatment plan. The patient is aware they should contact our office by phone for worsening of their current condition or the appearance of new urologic symptoms. Compliance is encouraged with any medications and followup testing that is ordered. It is a privilege to participate in the urologic care of your patient. If you have any questions or concerns regarding treatment for the above conditions, or other urologic issues, please do not hesitate to contact me. The office telephone contact is [phone]. This note is constructed using voice recognition software. While every effort has been made to ensure accuracy porter head errors may have been included. Yours sincerely, Dr Tunde Tolliver MD, [facility] - Urology Providers of Expert, Compassionate Care for the Genitourinary System Telehealth Telehealth Location of provider rendering services: practice address Location of patient: address on file Patient Identification confirmed using: Name, : Yes Telehealth method: video Patient verbally consented to treatment: Yes Patient verbally consented to billing insurance company: Yes Patient informed of any privacy concerns related to visit: Yes Coding Level of Care Code Tele Est Pt Level 3 (69356) Diagnoses Hydrocele, unspecified hydrocele type N43.3 Hydrocele type: unspecified Bladder outlet obstruction N32.0
== END 2023-05-02 10:11 | disposition home or self-care (01) ==
LOC: HO.HUSH 09:08
PROVIDERS: PCP Internal Medicine; Visit Provider Urology
DX: N43.3 Hydrocele, unspecified (principal); N32.0 Bladder-neck obstruction
CPT/HCPCS: 99213

== ENCOUNTER → 2023-05-02 09:08 | Outpatient (BNVA) | payer MEDICARE, MEDICAID, SELFPAY | PROVIDERS: PCP Internal Medicine; Visit Provider Urology ==

== ENCOUNTER 2023-05-13 12:28 | Day surgery (SDC) | payer MEDICARE, MEDICAID, SELFPAY ==
--- NOTE | 2023-05-10 12:20 | HO.ANESPROP2 ---
Documented by User: Claudette Amato NP 05/10/23 12:24 HPI - Anesthesia Eval Consult details Narrative: 68yo M for Left Hydrocele Repair retirement resident for developmental disorder, legal guardian for consent Recurrent aspiration pna. G tube in situ. Last [facility] admit 03/2023 with sepsis d/t aspiration pna and proctocolitis. D/C on augmentin PMFSH Active Problems Active Problems: All Active Problems (Updated 05/09/23 @ 11:28 by Beulah Saunders RN) Proctocolitis (Acute) Bladder outlet obstruction (Acute) Dehydration (Acute) Dysphagia (Acute) GERD (gastroesophageal reflux disease) (Acute) Seizures (Acute) Hydrocele (Acute) Past Medical History Medical History Severe sepsis Dysphagia Pica Seizures BPH (benign prostatic hyperplasia) Dysphagia Pneumonia Mentally challenged Developmental non-verbal disorder Autism Hydrocele Chronic renal disease Hyperlipemia Anemia Hypertension Hiatal hernia GERD (gastroesophageal reflux disease) OCD (obsessive compulsive disorder) Bipolar 1 disorder Family History Family history of problems with anesthesia: No Surgical History Surgical History History of colectomy H/O exploratory laparotomy History of Problems with Anesthesia: No Social History Social History Household Members: Other Household Members Other:: [facility], [facility] Housing: Other Housing Other:: [facility] Do you presently have visiting nurse or other home services: Yes Unable to assess alcohol history related to: Unable to respond Alcohol intake: never Comment: [facility] home caregiver at bedside Patient Tobacco Use Status: Never used Tobacco Use of substances other than those prescribed or required for medical reasons: No Are you DNR?: No Advance Directives: No Advance Directives Information Provided: Yes Advance Directives Date on File: 12/24/21 service: No Current occupational status: disabled Meds Allergies Allergy/AdvReac Type Severity Reaction Status Date / Time haloperidol [From HALDOL] AdvReac Unknown UNKNOWN Verified 05/02/23 09:10 metoclopramide [From REGLAN] AdvReac Unknown UNKNOWN Verified 05/02/23 09:10 Home Medications Medication Instructions Recorded Confirmed Last Taken Type bacitracin zinc 500 unit/gram 1 appl topical BID PRN Wound Care 12/24/21 04/01/23 Unknown History topical ointment docusate sodium 60 mg/15 mL oral 100 mg feeding tube BEDTIME 11/10/22 04/01/23 Unknown History syrup omeprazole 20 mg capsule,delayed 40 mg feeding tube DAILY@0630 11/10/22 04/01/23 Unknown History release nystatin 100,000 unit/gram topical 1 appl topical BID 12/18/22 04/01/23 Unknown History powder citalopram 20 mg tablet 20 mg feeding tube DAILY 04/01/23 04/01/23 Unknown History citalopram 40 mg tablet 40 mg feeding tube DAILY 04/01/23 04/01/23 Unknown History finasteride 5 mg tablet 5 mg feeding tube DAILY 04/01/23 04/01/23 Unknown History psyllium 1 tbsp feeding tube BID@0800,1600 04/01/23 04/01/23 Unknown History valproic acid (as sodium salt) 250 1,000 mg feeding tube BID@0800,2000 04/01/23 04/01/23 Unknown History mg/5 mL oral solution Assessment and Plan Assessment Anesthesia Assessment: Chart Reviewed Final Anesthetic Review Family History of Problems with Anesthesia: No History of Problems with Anesthesia: No Documented by User: Kelvin Dodson MD 05/13/23 14:06 [facility] Past Medical History Medical History Severe sepsis Dysphagia Pica Seizures BPH (benign prostatic hyperplasia) Dysphagia Pneumonia Mentally challenged Developmental non-verbal disorder Autism Hydrocele Chronic renal disease Hyperlipemia Anemia Hypertension Hiatal hernia GERD (gastroesophageal reflux disease) OCD (obsessive compulsive disorder) Bipolar 1 disorder Surgical History Surgical History History of colectomy H/O exploratory laparotomy Social History Social History Household Members: Other Household Members Other:: [facility], [facility] Housing: Other Housing Other:: halfway Do you presently have visiting nurse or other home services: Yes Unable to assess alcohol history related to: Unable to respond Alcohol intake: never Comment: [facility] home caregiver at bedside Patient Tobacco Use Status: Never used Tobacco Use of substances other than those prescribed or required for medical reasons: No Are you DNR?: No Advance Directives: No Advance Directives Information Provided: Yes Advance Directives Date on File: 12/24/21 service: No Current occupational status: disabled Meds Allergies Allergy/AdvReac Type Severity Reaction Status Date / Time haloperidol [From HALDOL] AdvReac Unknown UNKNOWN Verified 05/02/23 09:10 metoclopramide [From REGLAN] AdvReac Unknown UNKNOWN Verified 05/02/23 09:10 Home Medications Medication Instructions Recorded Confirmed Last Taken Type bacitracin zinc 500 unit/gram 1 appl topical BID PRN Wound Care 12/24/21 04/01/23 Unknown History topical ointment docusate sodium 60 mg/15 mL oral 100 mg feeding tube BEDTIME 11/10/22 04/01/23 Unknown History syrup omeprazole 20 mg capsule,delayed 40 mg feeding tube DAILY@0630 11/10/22 04/01/23 Unknown History release nystatin 100,000 unit/gram topical 1 appl topical BID 12/18/22 04/01/23 Unknown History powder citalopram 20 mg tablet 20 mg feeding tube DAILY 04/01/23 04/01/23 Unknown History citalopram 40 mg tablet 40 mg feeding tube DAILY 04/01/23 04/01/23 Unknown History finasteride 5 mg tablet 5 mg feeding tube DAILY 04/01/23 04/01/23 Unknown History psyllium 1 tbsp feeding tube BID@0800,1600 04/01/23 04/01/23 Unknown History valproic acid (as sodium salt) 250 1,000 mg feeding tube BID@0800,2000 04/01/23 04/01/23 Unknown History mg/5 mL oral solution Exam Airway Mallampati Class: Patient Non-Cooperative TM Dist: >3cm Neck ROM: Full Denture: Upper and Lower Heart: ok Lungs: ok Assessment and Plan Assessment Anesthesia Assessment: Anesthesia Plan Discussed Final Anesthetic Review NPO: Yes ASA Class: IV Final Preanesthetic Review: No Changes in Pt Med Stat, Meds/Allgs Chart Reviewed, Consent Obtained/Reviewed and Anes Risks/Benef Reviewed Patient Risk: High Procedure Risk: Low Anesthetic Plan Anesthetic Plan: Spinal and Agree w/ Assess. and Plan Disposition: Standard PACU
[2023-05-13] VITALS (18 sets, daily range): BP systolic 79–166; BP diastolic 46–64; PULSE 60–72; RESP 16; TEMP 36.1–36.2; O2SAT 95–99; BMI 25.2
--- NOTE | 2023-05-13 12:52 | P.HPSUR_ITS ---
Pre-Procedural Eval Section A - 24 Hr Update-Section A only Date of Service: 05/13/23 The patient is an INPATIENT: No Changes since office visit: No Cold of Flu in the past 2 weeks, No New Medical Problems, No Changes in Medication and No Patient answered all questions The patient has been examined within 24 hours of the surgical procedure. The History & Physical has been completed within 30 days and I have reviewed it.: Yes Section B - Complete if H&P > 30 days Chief Complaint: Hydrocele, unspecified Details of Present Illness: Left hydrocelectomy Allergies: Allergies Allergy/AdvReac Type Severity Reaction Status Date / Time haloperidol [From HALDOL] AdvReac Unknown UNKNOWN Verified 05/02/23 09:10 metoclopramide [From REGLAN] AdvReac Unknown UNKNOWN Verified 05/02/23 09:10 Review of Systems Sugical H&P ROS: Negative: Constitution, Cardiovascular, Respiratory, Neurologic al, Psychiatric, Hem-Onc, Allergic/Immunologic, Gastrointestinal, Genitourinary, Musculoskeletal, Integumentary, Endocrine and Eyes/Ears/Nose/Throat Exam Surgical H&P Exam: Normal: HEENT, Normal: Heart, Normal: Lungs, Normal: Extremities, Normal: Abdomen, Normal: Skin and Normal: Neurological Plan Diagnosis/Plan: Unchanged (left hydrocelectomy) I have reviewed the history and physical and performed a pertinent physical examination on my patient. No changes have occurred unless specified. Time Spent With Patient Time: Total time managing care of this patient today ____ minutes.
[2023-05-13] MEDS: Lactated Ringers 1,000 ML 100 ML IVCONT (13:10)
--- NOTE | 2023-05-13 14:39 | W.PM.OPN ---
Operative Note Operative Note Date of Service: 05/13/23 Narrative: PreOperative Diagnosis: Left hydrocele Post Operative Diagnosis: Left hydrocele Procedure: Hydrocelectomy Surgeon: Dr Tunde Tolliver Anesthesia: General Indications for procedure: Left hydrocele with persistent discomfort Procedure: After informed consent was verified the patient was brought to the operating room and placed in a supine position. Anesthesia was administered per protocol. Patient was appropriately shaved and genitals were prepped and draped in sterile fashion. Safety pause time-out was performed. Antibiotics being given. Local anesthetic was infiltrated under the skin in a horizontal fashion on the scrotum. Skin incision was made using a blade through the subdermal layer. The tunica around the testicle was elevated and dissected free from surrounding tissue. The avascular plane around the tunica was entered and using a wet sponge blunt dissection was performed. Any small bleeding perforators were cauterized. The tunica was extremely inflamed. Holding stay sutures with 3-0 Vicryl were placed. The tunica was cut. Fluid was removed. The hydrocele sac was then dissected out from surrounding inflamed tissue. The testicle was delivered out of the scrotum and opened in a longitudinal fashion. The testicle sac was partially inverted. Excess thickened sac was dissected and removed using a LigaSure cautery instrument to minimize porst procedure bleeding. Skin edges of the tunica were cauterized carefully in order to try to minimize postprocedure hematoma. Small accessory appendices were removed from the head of epididymis. The testicle with resected sac was placed back into a dependent portion of the scrotum. A quarter-inch Leonardo drain was placed out through the dependent portion of the scrotal sac. Overlying skin fascia layer was closed with a running 3-0 Vicryl suture. A 2nd layer of Vicryl was placed. Skin was closed with interrupted 4-0 chromic sutures. The Leonardo was sewn into a soft drain sponge using 2-0 nylon. Soft fluff sponges were placed with mesh pants as dressing. Local anesthetic was placed in inguinal cord for post procedure pain relief. Patient tolerated procedure well was extubated in operating room transferred in stable condition to the recovery area Pathology: Hydrocele sac Drains: Leonardo is above
== END 2023-05-13 17:30 | disposition home or self-care (01) ==
PROVIDERS: PCP Internal Medicine; Visit Provider Urology
PROC: (CPT 55060; principal; 2023-05-13 14:10)
DX: N43.3 Hydrocele, unspecified (principal); I12.9 Hypertensive chronic kidney disease with stage 1 through stage 4 chronic kidney disease, or unspecified chronic kidney disease; N18.9 Chronic kidney disease, unspecified; N40.0 Benign prostatic hyperplasia without lower urinary tract symptoms; N32.0 Bladder-neck obstruction; R62.59 Other lack of expected normal physiological development in childhood; F84.0 Autistic disorder; F31.9 Bipolar disorder, unspecified; F42.9 Obsessive-compulsive disorder, unspecified; Z79.899 Other long term (current) drug therapy; Z88.8 Allergy status to other drugs, medicaments and biological substances
CPT/HCPCS: 55040; 88302; J0131; J0690; J2704; J2795; J3010

== ENCOUNTER → 2023-05-13 12:28 | Outpatient (BNV) | payer MEDICARE, MEDICAID, SELFPAY | PROVIDERS: PCP Internal Medicine; Visit Provider Urology | DX: N43.3 Hydrocele, unspecified (principal) | CPT/HCPCS: 55040 ==

== ENCOUNTER 2023-06-21 11:53 | Outpatient (AMB) | payer MEDICARE, MEDICAID, SELFPAY ==
--- NOTE | 2023-06-21 11:56 | MHC.OFFVIS ---
Intake Visit Reasons: Hydrocelectomy follow up Allergies haloperidol [From HALDOL] Adverse Reaction (Unknown, Verified 05/02/23 09:10) UNKNOWN metoclopramide [From REGLAN] Adverse Reaction (Unknown, Verified 05/02/23 09:10) UNKNOWN HPI Comments Details: Mingo is a nonverbal? resident of a group house with developmental delay. They are a patient of Dr.? Rangel. They are seen in the office today for the following urologic conditions - nocturia - bladder outlet obstruction - hydrocele Telemedicine Evaluation 15 min Consultation [employer] Jesus Video attempted Doing well after left hydrocelectomy Maintain yearly follow-up Discussed with sister Sherry who is his healthcare proxy [phone] Bladder outlet obstruction Has done well with combination therapy ?On exam has large left hydrocele ?Recommendation for hydrocelectomy ?Discussed with case work. ? Current visit is for?initial symptom evaluation of, lower urinary tract symptoms, predominate irritative symptoms.? - G tube placement for feeding ? Current treatment includes finasteride - previously had been on doxazosin and tamsulosin but had blood pressure issues ? Symptoms include?incomplete emptying, nocturia (>2), and are progressing.? Treatment plan?- maintain finasteride [facility] Medical History Severe sepsis Dysphagia Pica Seizures BPH (benign prostatic hyperplasia) Dysphagia Pneumonia Mentally challenged Developmental non-verbal disorder Autism Hydrocele Chronic renal disease Hyperlipemia Anemia Hypertension Hiatal hernia GERD (gastroesophageal reflux disease) OCD (obsessive compulsive disorder) Bipolar 1 disorder Surgical History History of colectomy H/O exploratory laparotomy Social History Household Members: Other Household Members Other:: senior care, formerly [facility] Wire services Housing: Other Housing Other:: senior care Do you presently have visiting nurse or other home services: Yes Unable to assess alcohol history related to: Unable to respond Alcohol intake: never Comment: [employer] home caregiver at bedside Patient Tobacco Use Status: Never used Tobacco Advance Directives Date on File: 12/24/21 service: No Current occupational status: disabled Review of Systems Const All systems reviewed & are unremarkable except as noted in HPI and below Reports no additional complaints Resp Reports no additional complaints GI Reports no additional complaints Reports as per HPI Musc Reports no additional complaints Physical Exam Telemedicine evaluation Appropriate responses Regular breathing rate and rhythm HEENT Head: Yes normal to inspection Ears: hearing grossly normal bilaterally Eyes General: appearance normal, both eyes and all related structures Neck Neck: Yes normal visual inspection Chest Chest palpation & inspection: normal inspection of the chest Resp Effort & Inspection: normal respiratory effort and able to speak in complete sentences Telehealth Telehealth Location of provider rendering services: practice address Location of patient: address on file Patient Identification confirmed using: Name, : Yes Telehealth method: video Patient verbally consented to treatment: Yes Patient verbally consented to billing insurance company: Yes Patient informed of any privacy concerns related to visit: Yes Assessment & Plan Assessment & Plan (1) Bladder outlet obstruction: Code(s): N32.0 - Bladder-neck obstruction Category: Medical (2) Hydrocele: Code(s): N43.3 - Hydrocele, unspecified Category: Medical Qualifiers: Hydrocele type: unspecified Qualified Code(s): N43.3 - Hydrocele, unspecified Plan Six-Month Follow-Up office Patient Instructions: Imaging studies, laboratory and physical exam results were discussed and reviewed in detail. No major barriers to patient understanding were identified. An opportunity to ask questions regarding the treatment plan was provided. All questions were answered. The patient expressed understanding and agreement with the above treatment plan. The patient is aware they should contact our office by phone for worsening of their current condition or the appearance of new urologic symptoms. Compliance is encouraged with any medications and followup testing that is ordered. It is a privilege to participate in the urologic care of your patient. If you have any questions or concerns regarding treatment for the above conditions, or other urologic issues, please do not hesitate to contact me. The office telephone contact is [phone]. This note is constructed using voice recognition software. While every effort has been made to ensure accuracy inspector shells errors may have been included. Yours sincerely, Dr Tunde Tolliver MD, [facility] - Urology Providers of Expert, Compassionate Care for the Genitourinary System Coding Level of Care Code Est Pt Level 3 (17819) Diagnoses Bladder outlet obstruction N32.0 Hydrocele, unspecified hydrocele type N43.3 Hydrocele type: unspecified
== END 2023-06-21 12:19 | disposition home or self-care (01) ==
LOC: HO.HUSH 11:53
PROVIDERS: PCP Internal Medicine; Visit Provider Urology
DX: N32.0 Bladder-neck obstruction (principal); N43.3 Hydrocele, unspecified
CPT/HCPCS: 99024

== ENCOUNTER → 2023-06-21 11:53 | Outpatient (BNVA) | payer MEDICARE, MEDICAID, SELFPAY | PROVIDERS: PCP Internal Medicine; Visit Provider Urology | DX: N32.0 Bladder-neck obstruction (principal); N43.3 Hydrocele, unspecified; R35.1 Nocturia | CPT/HCPCS: 99212 ==

== ENCOUNTER 2023-07-06 23:42 | Emergency (ER) | payer MEDICARE, MEDICAID, SELFPAY ==
--- NOTE | ~2023-07-06 | XR_ITS ---
EXAMINATION: RIGHT ANKLE, RIGHT FOOT CLINICAL INFORMATION: Foot and ankle pain COMPARISON: None available. TECHNIQUE: 3 views right ankle, 2 views right foot FINDINGS: There is mild bilateral soft tissue ankle swelling. There is a small avulsion fracture involving the medial malleolus. The ankle mortise appears intact. No other fractures are seen. XR/XR foot RT 2V IMPRESSION: Small avulsion fracture medial malleolus.
--- NOTE | ~2023-07-06 | XR_ITS ---
EXAMINATION: RIGHT ANKLE, RIGHT FOOT CLINICAL INFORMATION: Foot and ankle pain COMPARISON: None available. TECHNIQUE: 3 views right ankle, 2 views right foot FINDINGS: There is mild bilateral soft tissue ankle swelling. There is a small avulsion fracture involving the medial malleolus. The ankle mortise appears intact. No other fractures are seen. XR/XR ankle RT min 3V IMPRESSION: Small avulsion fracture medial malleolus.
[2023-07-07] VITALS: BP 105/67; PULSE 77; RESP 16; TEMP 36.7; O2SAT 99; BMI 59.4
--- NOTE | 2023-07-07 00:04 | ECG_ITS ---
Test Reason : PAIN Blood Pressure : / mmHG Vent. Rate : 079 BPM Atrial Rate : 079 BPM P-R Int : 156 ms QRS Dur : 080 ms QT Int : 398 ms P-R-T Axes : 058 018 042 degrees QTc Int : 456 ms Normal sinus rhythm Nonspecific ST abnormality Abnormal ECG When compared with ECG of 01-APR-2023 07:07, No significant change was found Referred By: Collins Hernadez Electronically Signed By:ANDREIA RODRIGUEZ MD
[2023-07-07 01:06] LABS: Basophils Percent Auto 0.2 % (0-2); Eosinophils Percent Auto 0.2 % (0-4); Hematocrit 32.8 % (42.0-52.0); Imm Gran Abs Auto 0.01 X10*3/uL (0.00-0.03); Imm Gran Pct Auto 0.2 % (0.0-0.4); Lymphocytes Percent Auto 34.4 % (20-40); MANUAL DIFF FLAG NO; Mean Corpuscular HGB Conc 33.5 g/dl (31.0-36.0); Mean Corpuscular Hemoglobin 31.9 pg (27.0-33.0); Mean Corpuscular Volume 95.1 fL (80.0-98.0); Mean Platelet Volume 10.4 fL (9.4-12.4); Monocytes Percent Auto 17.1 % (2-11); Neutrophils Absolute Auto 2.8 x10*3/uL (2.0-8.3); Neutrophils Percent Auto 47.9 % (45-73); Platelet Count 158 X10*3/uL (160-400); Red Blood Count 3.45 X10*6/uL (4.60-5.80); Red Cell Distribution Width 14.4 % (11.0-16.0); White Blood Count 5.9 X10*3/uL (4.8-10.8)
[2023-07-07 01:11] LABS: Prothrombin Time 11.6 SEC (11.1-13.3)
[2023-07-07 01:13] LABS: D Dimer High Sensitivity 237 NG/ML
[2023-07-07 01:25] LABS: Alanine Aminotransferase 8 U/L (0-40); Albumin Level 3.3 g/dL (3.5-5.0); Alkaline Phosphatase 80 U/L (39-117); Anion Gap 16 (12-20); Aspartate Amino Transferase 18 U/L (5-37); Bilirubin Total 0.4 mg/dL (0.0-1.0); Blood Urea Nitrogen 27 mg/dL (9-16); Calcium 9.3 mg/dL (8.4-10.2); Carbon Dioxide 29 mmol/L (22-29); Chloride 94 mmol/L (96-108); Estimated Glomerular Filt Rate > 60; Glucose Random 82 mg/dL (60-115); Lipase 33 U/L (8-78); Potassium 3.8 mmol/L (3.3-5.1); Sodium 135 mmol/L (135-145)
--- NOTE | 2023-07-07 01:29 | ED_ITS ---
HPI - General Adult General Stated complaint: cut on right foot, swelling Time Seen by Provider: 07/06/23 23:56 Source: patient, RN notes reviewed and other (staff advocate from facility) Mode of arrival: EMS Limitations: other (Patient is nonverbal) History of Present Illness HPI narrative: 68-year-old male past medical history significant for cognitive delay, OCD, PICA, GERD, nonverbal at baseline, G-tube feeding presents for evaluation of right foot swelling. Per staff at the patient's facility at shift change which was around 10:30 p.m. last night, 3 hours ago they noticed his right foot/lower leg was swollen The patient is unable to convey any complaints Staff also notes that the patient has a small cut in between his left 4th and 5th toes He is being treated with Lotrimin for a fungal infection between the toes Apparently, the patient's heart rate was 88 and temperature was 99? at the facility which is reported as ?high for him. ? Therefore they brought him to the emergency department for evaluation The patient has been resting comfortably and staff has not noticed any behavioral changes in the patient Related Data Home Medications ?Medication ?Instructions ?Recorded ?Confirmed bacitracin zinc 500 unit/gram 1 appl topical BID PRN Wound Care 12/24/21 04/01/23 topical ointment docusate sodium 60 mg/15 mL oral 100 mg feeding tube BEDTIME 11/10/22 04/01/23 syrup omeprazole 20 mg capsule,delayed 40 mg feeding tube DAILY@0630 11/10/22 04/01/23 release nystatin 100,000 unit/gram topical 1 appl topical BID 12/18/22 04/01/23 powder citalopram 20 mg tablet 20 mg feeding tube DAILY 04/01/23 04/01/23 citalopram 40 mg tablet 40 mg feeding tube DAILY 04/01/23 04/01/23 finasteride 5 mg tablet 5 mg feeding tube DAILY 04/01/23 04/01/23 psyllium 1 tbsp feeding tube BID@0800,1600 04/01/23 04/01/23 valproic acid (as sodium salt) 250 1,000 mg feeding tube BID@0800,2000 04/01/23 04/01/23 mg/5 mL oral solution Previous Rx's ?Medication ?Instructions ?Recorded acetaminophen 325 mg tablet 650 mg (2 x 325 mg) feeding tube 01/16/22 Q6H PRN Pain #60 tabs dextromethorphan-guaifenesin 10 10 ml feeding tube Q6H PRN Cough 01/16/22 mg-100 mg/5 mL oral liquid #500 mL loratadine 10 mg tablet 10 mg feeding tube DAILY #60 tabs 01/16/22 magnesium hydroxide 400 mg/5 mL 30 ml feeding tube DAILY PRN 01/16/22 oral suspension (Milk of Magnesia) Constipation #355 mL olanzapine 10 mg tablet 10 mg feeding tube DAILY #60 tabs 01/16/22 olanzapine 20 mg tablet 20 mg feeding tube BEDTIME #30 tabs 01/16/22 polyethylene glycol 3350 17 17 g feeding tube BID #510 grams 01/16/22 gram/dose oral powder simethicone 40 mg/0.6 mL oral 40 mg (0.6 mL) feeding tube 01/16/22 drops,suspension (Gas Relief TID@0800,1600,2000 #30 mL (simethicone)) #18 MACKENZIE gastrostomy feeding #1 ea 06/20/22 amoxicillin 600 mg-potassium 5 ml feeding tube BID #75 mL 04/05/23 clavulanate 42.9 mg/5 mL oral suspension acetaminophen 325 mg capsule 650 mg (2 x 325 mg) PO QID 3 days 05/13/23 (Tylenol) #24 caps oxycodone 5 mg tablet 5 mg PO Q8H PRN pain 3 days #8 tabs 05/13/23 Allergies Allergy/AdvReac Type Severity Reaction Status Date / Time haloperidol [From HALDOL] AdvReac Unknown UNKNOWN Verified 05/02/23 09:10 metoclopramide [From REGLAN] AdvReac Unknown UNKNOWN Verified 05/02/23 09:10 Review of Systems 2 Constitutional: Constitutional: Denies fever(s) Cardiovascular: Cardiovascular: Reports pedal edema Respiratory: Respiratory: Denies cough Gastrointestinal: Gastrointestinal: Denies vomiting Integumentary/Breasts: Skin/Breast: Denies rash PMFSH Past Medical History Medical History Severe sepsis Dysphagia Pica Seizures BPH (benign prostatic hyperplasia) Dysphagia Pneumonia Mentally challenged Developmental non-verbal disorder Autism Hydrocele Chronic renal disease Hyperlipemia Anemia Hypertension Hiatal hernia GERD (gastroesophageal reflux disease) OCD (obsessive compulsive disorder) Bipolar 1 disorder Surgical History History of colectomy H/O exploratory laparotomy Social History Social History Household Members: Other Household Members Other:: intermediate, [facility] Housing: Other Housing Other:: intermediate Do you presently have visiting nurse or other home services: Yes Unable to assess alcohol history related to: Unable to respond Alcohol intake: never Comment: [employer] home caregiver at bedside Patient Tobacco Use Status: Never used Tobacco Advance Directives: Yes Advance Directives on File: Yes Advance Directives Date on File: 12/24/21 service: No Current occupational status: disabled Physical Exam ED Const General: comfortable, no acute distress, alert and awake Nutritional Appearance: well nourished HENMT Head: Yes normocephalic and Yes atraumatic Eyes Eyelids: Yes eyelids normal Conjunctivae: conjunctivae normal Sclerae: sclerae normal Corneas: corneas normal Pupils: Equal, round and reactive pupils present EOM: EOMs intact bilaterally Neck Neck: Yes full ROM Resp Effort & Inspection: normal respiratory effort, able to speak in complete sentences, no audible wheezes and not labored Auscultation: clear to auscultation bilaterally Cardio Rate: regular rate Rhythm: regular rhythm GI Inspection: No distended and Yes G-tube present Palpation (GI): Soft to palpation, not firm, nontender, no guarding and not rigid Skin Other: Patient has a 1 cm partial-thickness superficial laceration that appears chronic with the web spacing of the left 4th and 5th toes. There is no surrounding erythema, no discharge, no bleeding General skin exam: elasticity normal Neuro Cranial nerves: Yes Equal, round and reactive pupils present and Yes Bilaterally intact EOM present Extrem Other: Moving all extremities well. Patient has edema to the right ankle over the medial and lateral malleolus. There is no significant tenderness to either side. There is also edema extending to the dorsal surface of the right midfoot, no skin changes, no tenderness, no increased warmth. Course Reevaluation(s) Reevaluation #1: Patient's labs are reassuring. His x-ray shows a small avulsion fracture. Consider stirrup splint, however the patient does have PICA and after discussing with staff he likes to pull things off and shoe on them. Plan for postop boot instead given that the ankle fracture is very stable Time: 01:39 Medical Decision Making Medical Decision Making [facility] Narrative: 68-year-old male presents for evaluation of right leg swelling. There is no reported trauma but the patient is unable to provide adequate history. Plan for basic labs, x-rays. He appears quite comfortable and is acting at his baseline per staff Differential Diagnosis Differential Diagnoses: The differential diagnosis associated with the presentation includes Foot swelling Tinea pedis Cellulitis Foot fracture Ankle fracture DVT less likely Lab Data [facility] Lab Attestation statement: I reviewed the patient's lab results. There is no leukocytosis. The patient does have a chronic anemia. His hemoglobin 11.0 hematocrit 32.8 actually improved going back to March of this year. There is no left shift. Coagulation studies are within normal limits. Age adjusted D-dimer is negative. Patient's chemistries are significant for a chloride of 94 which is low, his BUN is slightly elevated 27 but a creatinine of 0.82 is within normal limits. GFR is greater than 60, no other electrolyte abnormalities. 07/07/23 01:00 07/07/23 01:00 Labs: Lab Results 07/07/23 Range/Units 01:00 WBC 5.9 (4.8-10.8) X10*3/uL RBC 3.45 L (4.60-5.80) X10*6/uL Hgb 11.0 L (14.0-18.0) g/dl Hct 32.8 L (42.0-52.0) % MCV 95.1 (80.0-98.0) fL MCH 31.9 (27.0-33.0) pg MCHC 33.5 (31.0-36.0) g/dl RDW 14.4 (11.0-16.0) % Plt Count 158 L (160-400) X10*3/uL MPV 10.4 (9.4-12.4) fL Immature Gran % (Auto) 0.2 (0.0-0.4) % Neut % (Auto) 47.9 (45-73) % Lymph % (Auto) 34.4 (20-40) % [place] % (Auto) 17.1 H (2-11) % Eos % (Auto) 0.2 (0-4) % Baso % (Auto) 0.2 (0-2) % Lymph # (Auto) 2.0 (1.2-4.9) X10*3/uL [place] # (Auto) 1.0 (0.1-1.2) X10*3/uL Eos # (Auto) 0.0 (0.0-0.4) X10*3/uL Baso # (Auto) 0.0 (0.0-0.2) X10*3/uL Abs Immat Gran (auto) 0.01 (0.00-0.03) X10*3/uL Absolute Neuts (auto) 2.8 (2.0-8.3) x10*3/uL Absolute Nucleated RBC 0.000 (0.0-0.012) X10*3/uL Nucleated RBC % (auto) 0.0 (0.0-0.2) /100WBC PT 11.6 (11.1-13.3) SEC INR 1.0 (0.9-1.1) D-Dimer High Sensitivty 237 NG/ML Sodium 135 (135-145) mmol/L Potassium 3.8 (3.3-5.1) mmol/L Chloride 94 L (96-108) mmol/L Carbon Dioxide 29 (22-29) mmol/L Anion Gap 16 (12-20) BUN 27 H (9-16) mg/dL Creatinine 0.82 (0.5-1.4) mg/dL Estim Creat Clear Calc TNP Estimated GFR > 60 Random Glucose 82 (60-115) mg/dL Calcium 9.3 (8.4-10.2) mg/dL Total Bilirubin 0.4 (0.0-1.0) mg/dL AST 18 (5-37) U/L ALT 8 (0-40) U/L Alkaline Phosphatase 80 (39-117) U/L Troponin I High Sens 3.0 D (<3.5-35.0) ng/L Total Protein 8.0 (6.5-8.0) g/dL Albumin 3.3 L (3.5-5.0) g/dL Lipase 33 (8-78) U/L Independent Interpretation I performed an independent interpretation of an: Plain X-Ray (No significant fracture of the right foot or ankle) Interpretation: I do appreciate Radiology interpretation of subtle avulsion fracture to the right medial malleolus Radiology Impression Discussion of test interpretation with radiology: I have reviewed the radiologist's reading. Radiologist Impression: XR/XR foot RT 2V IMPRESSION: Small avulsion fracture medial malleolus. Discharge Plan Discharge Clinical Impression: Ankle fracture, right Patient Disposition: Home, Self-Care Instructions: Ankle Fracture (ED) Additional Instructions: Remains blood work today did not show any concerning abnormalities. His x-ray did show a small avulsion fracture to the right medial malleolus of the ankle He may use ibuprofen and or Tylenol for his pain as long as he has no contraindications He needs to follow-up with orthopedics at the number provided, call Saturday to schedule an appointment Prescriptions: No Action bacitracin zinc 500 unit/gram ointment 1 appl topical BID PRN (Reason: Wound Care) acetaminophen 325 mg tablet 650 mg feeding tube Q6H PRN (Reason: Pain) Qty: 60 0RF dextromethorphan-guaifenesin 10-100 mg/5 mL Liquid 10 ml feeding tube Q6H PRN (Reason: Cough) Qty: 500 0RF olanzapine 10 mg tablet 10 mg feeding tube DAILY Qty: 60 0RF magnesium hydroxide [Milk of Magnesia] 400 mg/5 mL suspension 30 ml feeding tube DAILY PRN (Reason: Constipation) Qty: 355 0RF simethicone [Gas Relief (simethicone)] 40 mg/0.6 mL drops,suspension 40 mg feeding tube TID@0800,1600,2000 Qty: 30 0RF polyethylene glycol 3350 17 gram/dose powder 17 g feeding tube BID Qty: 510 0RF Rx Instructions: hold if more than 3 BM's in 1 day olanzapine 20 mg tablet 20 mg feeding tube BEDTIME Qty: 30 0RF loratadine 10 mg tablet 10 mg feeding tube DAILY Qty: 60 0RF omeprazole 20 mg capsule,delayed release(DR/EC) 40 mg feeding tube DAILY@0630 Rx Instructions: needs to be given with water juice or snack docusate sodium 60 mg/15 mL syrup 100 mg feeding tube BEDTIME psyllium Powder 1 tbsp feeding tube BID@0800,1600 Rx Instructions: mix into at least 8 oz of water or juice before administering valproic acid (as sodium salt) 250 mg/5 mL solution 1,000 mg feeding tube BID@0800,2000 citalopram 40 mg tablet 40 mg feeding tube DAILY citalopram 20 mg tablet 20 mg feeding tube DAILY finasteride 5 mg tablet 5 mg feeding tube DAILY amoxicillin-pot clavulanate 600-42.9 mg/5 mL suspension for reconstitution 5 ml feeding tube BID Qty: 75 0RF oxycodone 5 mg tablet 5 mg PO Q8H PRN (Reason: pain) 3 Days Qty: 8 0RF Rx Instructions: Partial Fill upon patient request. acetaminophen [Tylenol] 325 mg capsule 650 mg PO QID 3 Days Qty: 24 0RF nystatin 100,000 unit/gram powder 1 appl topical BID (DME) #18 MACKENZIE gastrostomy feeding #18 Citizen Of [place] See Rx Instructions .Route .MEDSUPPLY Qty: 1 0RF Rx Instructions: Every 6 months Print Language: Palauan
[2023-07-07 03:12] VITALS: BP 125/74; PULSE 65; RESP 16; TEMP 36.8; O2SAT 98
== END 2023-07-07 02:45 | disposition home or self-care (01) ==
PROVIDERS: Physician Assistant; Emergency Provider Emergency Medicine Emergency Medical Services; PCP Internal Medicine
DX: S82.51XA Displaced fracture of medial malleolus of right tibia, initial encounter for closed fracture (principal); X58.XXXA Exposure to other specified factors, initial encounter; R50.9 Fever, unspecified; Y93.9 Activity, unspecified; Y92.049 Unspecified place in boarding-house as the place of occurrence of the external cause; Y99.9 Unspecified external cause status; R13.10 Dysphagia, unspecified; K21.9 Gastro-esophageal reflux disease without esophagitis; R56.9 Unspecified convulsions; D64.9 Anemia, unspecified; F84.0 Autistic disorder; I10 Essential (primary) hypertension; E78.5 Hyperlipidemia, unspecified; Z79.899 Other long term (current) drug therapy
CPT/HCPCS: 36415; 73610; 73620; 80053; 83690; 84484; 85025; 85379; 85610; 93005; 99284

== ENCOUNTER → 2023-07-07 00:04 | Outpatient (BNV) | payer MEDICARE, MEDICAID, SELFPAY | PROVIDERS: Emergency Provider Emergency Medicine Emergency Medical Services; PCP Internal Medicine; Visit Provider Internal Medicine Cardiovascular Disease | DX: R94.31 Abnormal electrocardiogram [ECG] [EKG] (principal) | CPT/HCPCS: 93010 ==

== ENCOUNTER 2023-07-08 08:28 | Emergency (ER) | payer MEDICARE, MEDICAID, SELFPAY ==
[2023-07-08] VITALS (8 sets, daily range): BP systolic 93–116; BP diastolic 50–84; PULSE 71–110; RESP 11–18; TEMP 36.2–37.7; O2SAT 93–100; BMI 30.7
--- NOTE | ~2023-07-08 | CT_ITS ---
EXAMINATION: CT ABDOMEN AND PELVIS WITH CONTRAST CLINICAL INFORMATION: Fever of unknown origin COMPARISON: CT scan of abdomen and pelvis on 04/03/2023 TECHNIQUE: Multidetector volumetric images were obtained from the superior aspect of the liver through the pubic symphysis following administration 85 mL of Omnipaque 350 intravenous contrast. Sagittal and coronal reformatted images were obtained on the technologist's workstation. Oral contrast: No This CT examination was performed using dose optimization techniques as appropriate, variously including the following: *Automated exposure control *Adjustment of mA and/or kV according to patient size (this includes techniques or standardized protocols for targeted exams where dose is matched to indication/reason for exam; i.e. extremities or head) *Use of iterative reconstruction technique DLP: 678.96 mGy-cm FINDINGS: LUNG BASES: Bilateral posterior lung bases mild dependent atelectasis is seen. There is asymmetric elevation of left hemidiaphragm. LIVER: No focal lesion is seen in the liver. GALLBLADDER AND BILIARY TREE: Gallbladder appears unremarkable without calcified stones. Common bile duct is not dilated. SPLEEN: The spleen is normal in size without focal lesion. PANCREAS: The pancreas appears unremarkable. ADRENAL GLANDS: Adrenal glands are normal in size without focal lesion bilaterally. KIDNEYS: Bilateral kidneys are normal in size without focal lesion. BOWELS: T12-L1 junction level left anterior lateral percutaneous gastrostomy feeding tube is seen with retention balloon inflated. There is marked gaseous distention of transverse bowel loop in upper anterior abdomen at L2 level, measuring up to 3.8 cm in AP diameter. RETROPERITONEUM: No abnormally enlarged retroperitoneal lymph nodes, mass or hematoma could be seen. BLOOD VESSELS: Abdominal aorta is normal in size and smoothly patent. ABDOMINAL WALL: Abdominal subcutaneous tissue and muscle are intact. No evidence of ventral hernia. PERITONEUM: There was no ascites. There were no abdominal peritoneal inflammatory changes seen. No free peritoneal air was seen. No abnormally enlarged mesenteric lymph nodes are found. BONES: No fracture or dislocation. No focal bone lesion diagnostic of metastatic disease could be seen in the lumbar region. EXAMINATION: CT pelvis. FINDINGS: URINARY BLADDER: Urinary bladder is distended with urine. BOWELS: Diffuse fluid distended rectum and sigmoid colon is seen with L5-S1 junction level right ileocolic anastomosis staple line. There appears to be a short segment of marked circumferential mural thickening and luminal narrowing in right pelvic cavity just superior to the anastomosis staple line for a transverse length of 4.4 cm, eventually transition into fluid-filled bowel loops in upper abdomen. GENITAL ORGANS: Seminal vesicles are unremarkable. Prostate gland is normal. LYMPH NODES: No abnormally enlarged iliac or inguinal lymph nodes are seen. PERITONEUM: No inflammatory changes, ascites or free peritoneal air are found in the pelvis. BONES: No fracture or dislocation. No focal bone lesion diagnostic of metastatic disease could be seen in the pelvis. CT/CT abdomen pelvis w IV con IMPRESSION: 1. Unchanged Marked gaseous distention of transverse bowel loop in upper anterior abdomen at L2 level. 2. Persistent Diffuse fluid distended rectum and sigmoid colon with L5-S1 junction level right ileocolic anastomosis staple line, status post subtotal colectomy. 3. Interval appearance of a short segment of marked circumferential mural thickening and luminal narrowing in right pelvic cavity just superior to the anastomosis staple line for a transverse length of 4.4 cm, eventually transition into fluid-filled bowel loops in upper abdomen. Findings could be due to luminal collapse, short segment stricture or tumor infiltration. 4. Unchanged left upper abdominal Percutaneous gastrostomy feeding tube with retention balloon inflated. Fleischner guidelines were followed.
--- NOTE | ~2023-07-08 | XR_ITS ---
EXAMINATION: XR CHEST CLINICAL INFORMATION: Aspiration pneumonia risk COMPARISON: Chest radiograph and chest CT 04/01/2023 TECHNIQUE: Frontal view of the chest was obtained. FINDINGS: Heart size normal. No evidence of CHF. Prominent reticular nodular markings seen in the lungs consistent with tree-in-bud nodularity prior CT. No focal consolidations or pleural effusions are seen. XR/XR chest 1V IMPRESSION: No acute intrathoracic disease. Reticular nodular markings consistent with tree-in-bud nodularity seen on prior CT.
--- NOTE | 2023-07-08 08:39 | ED_ITS ---
HPI - Extremity Problem General Chief complaint: Fever Stated complaint: foot infection Time Seen by Provider: 07/08/23 08:39 Source: EMS and old records reviewed Mode of arrival: EMS Limitations: other (unable to provide history) History of Present Illness ED Provider: MEGHA HPI Narrative: 68 yo male from long term with PMH of dysphagia, PICA, seizures, BPH, aspiration pneumonia, developmental nonverbal disorder, autism, chronic renal disease, HLD, HTN, hiatal hernia, GERD, OCD, bipolar just seen yesterday for R foot swelling and found to have R medial malleolus ankle avulsion fracture he comes back today with c/o long term worried about him not being himself elevated HR and felt warm wanted him evaluated again. MD Complaint: other Onset (ago): day(s) (two days) Radiation: none Relieving factors: nothing Exacerbating factors: nothing Associated symptoms: other (possible fever, elevated HR not acting himself) Related Data Home Medications ?Medication ?Instructions ?Recorded ?Confirmed bacitracin zinc 500 unit/gram 1 appl topical BID PRN Wound Care 12/24/21 04/01/23 topical ointment docusate sodium 60 mg/15 mL oral 100 mg feeding tube BEDTIME 11/10/22 04/01/23 syrup omeprazole 20 mg capsule,delayed 40 mg feeding tube DAILY@0630 11/10/22 04/01/23 release nystatin 100,000 unit/gram topical 1 appl topical BID 12/18/22 04/01/23 powder citalopram 20 mg tablet 20 mg feeding tube DAILY 04/01/23 04/01/23 citalopram 40 mg tablet 40 mg feeding tube DAILY 04/01/23 04/01/23 finasteride 5 mg tablet 5 mg feeding tube DAILY 04/01/23 04/01/23 psyllium 1 tbsp feeding tube BID@0800,1600 04/01/23 04/01/23 valproic acid (as sodium salt) 250 1,000 mg feeding tube BID@0800,2000 04/01/23 04/01/23 mg/5 mL oral solution Previous Rx's ?Medication ?Instructions ?Recorded acetaminophen 325 mg tablet 650 mg (2 x 325 mg) feeding tube 01/16/22 Q6H PRN Pain #60 tabs dextromethorphan-guaifenesin 10 10 ml feeding tube Q6H PRN Cough 01/16/22 mg-100 mg/5 mL oral liquid #500 mL loratadine 10 mg tablet 10 mg feeding tube DAILY #60 tabs 01/16/22 magnesium hydroxide 400 mg/5 mL 30 ml feeding tube DAILY PRN 01/16/22 oral suspension (Milk of Magnesia) Constipation #355 mL olanzapine 10 mg tablet 10 mg feeding tube DAILY #60 tabs 01/16/22 olanzapine 20 mg tablet 20 mg feeding tube BEDTIME #30 tabs 01/16/22 polyethylene glycol 3350 17 17 g feeding tube BID #510 grams 01/16/22 gram/dose oral powder simethicone 40 mg/0.6 mL oral 40 mg (0.6 mL) feeding tube 01/16/22 drops,suspension (Gas Relief TID@0800,1600,2000 #30 mL (simethicone)) #18 MACKENZIE gastrostomy feeding #1 ea 06/20/22 amoxicillin 600 mg-potassium 5 ml feeding tube BID #75 mL 04/05/23 clavulanate 42.9 mg/5 mL oral suspension acetaminophen 325 mg capsule 650 mg (2 x 325 mg) PO QID 3 days 05/13/23 (Tylenol) #24 caps oxycodone 5 mg tablet 5 mg PO Q8H PRN pain 3 days #8 tabs 05/13/23 Allergies Allergy/AdvReac Type Severity Reaction Status Date / Time haloperidol [From HALDOL] AdvReac Unknown UNKNOWN Verified 07/08/23 09:22 metoclopramide [From REGLAN] AdvReac Unknown UNKNOWN Verified 07/07/23 02:00 Review of Systems 2 Review of Systems: ROS unable to be obtained due to developmental delay and non verbal PMFSH Past Medical History Source: old records reviewed Medical History Pica Seizures BPH (benign prostatic hyperplasia) Dysphagia Pneumonia Mentally challenged Developmental non-verbal disorder Autism Severe sepsis Hydrocele Chronic renal disease Hyperlipemia Anemia Hypertension Hiatal hernia GERD (gastroesophageal reflux disease) OCD (obsessive compulsive disorder) Bipolar 1 disorder Surgical History History of colectomy H/O exploratory laparotomy Social History Social History Household Members: Other Household Members Other:: long term, [facility] Housing: Other Housing Other:: long term Do you presently have visiting nurse or other home services: Yes Unable to assess alcohol history related to: Unable to respond Alcohol intake: never Comment: [facility] home caregiver at bedside Patient Tobacco Use Status: Never used Tobacco Advance Directives: Yes Advance Directives on File: Yes Advance Directives Date on File: 12/24/21 Do you have a plan to hurt others: No Plan service: No Current occupational status: disabled Physical Exam 2 Vital Signs: Vital Signs: Last Vital Signs Temp 98.3 F 07/08/23 14:00 Pulse 71 07/08/23 14:00 Resp 11 L 07/08/23 14:00 BP 93/56 L 07/08/23 14:00 Pulse Ox 100 07/08/23 14:00 O2 Del Method Nasal Cannula 07/08/23 14:00 O2 Flow Rate 2 07/08/23 14:00 BMI result Body Mass Index 30.7 Appearance: Alert. not talking tracks with eyes. No acute distress. Eyes: Pupils equal, round and reactive to light. ENT: Pharynx normal. Neck: Normal inspection. Neck supple. CVS: Normal heart rate and rhythm. Pulses normal. Respiratory: No respiratory distress. Breath sounds both bases diminished but he cannot really follow insp exam Abdomen: mild distention does not seem to grimace Skin: Skin warm and dry. Normal skin color. Normal skin turgor. no signs of infection between toes Extremities: No lower extremity edema. no redness or cellulitis on either leg Neuro: contracted extremities, nonverbal Course Course Course Narrative: no obvious source at this time I think given he cannot provide a good history I am going to obtain CT scan of abdomen to look for occult infection Reevaluation(s) Reevaluation #1: lactic acidosis cleared at this time Reevaluation #2: signed out to Dr. Escalante pending CT scan results Medications Administered Generic Name Dose Route Start Last Admin Trade Name Freq PRN Reason Stop Dose Admin Sodium Chloride 1,000 mls @ 100 mls/hr 07/08/23 15:30 07/08/23 15:52 Ns IVCONT 100 mls/hr .Q10H RODOLFO Administration Discontinued Medications Generic Name Dose Route Start Last Admin Trade Name Freq PRN Reason Stop Dose Admin Acetaminophen 650 mg 07/08/23 09:02 07/08/23 09:54 Acetaminophen Supp 650 Mg Supp.Rect MD 07/08/23 09:03 650 mg ONCE ONE Administration Sodium Chloride 1,000 mls @ 999 mls/hr 07/08/23 09:00 07/08/23 09:29 Ns IV 07/08/23 10:00 999 mls/hr .Q1H1M ONE Administration Piperacillin Sod/Tazobactam 100 mls @ 200 mls/hr 07/08/23 09:00 07/08/23 09:53 Sod 4.5 gm/ Sodium Chloride IV 07/08/23 09:29 0 mls/hr ONCE ONE Infusion Sodium Chloride 1,000 mls @ 999 mls/hr 07/08/23 14:15 07/08/23 14:51 Ns IV 07/08/23 15:15 999 mls/hr .Q1H1M ONE Administration Iohexol 100 ml 07/08/23 14:04 07/08/23 14:05 Iohexol 350 Mg/Ml 100 Ml Infus..Btl IV 07/08/23 14:05 85 ml ONCE ONE Administration Medical Decision Making Medical Decision Making MDM Narrative: 68 yo male from long term with PMH of dysphagia, PICA, seizures, BPH, aspiration pneumonia, developmental nonverbal disorder, autism, chronic renal disease, HLD, HTN, hiatal hernia, GERD, OCD, bipolar here with c/o feeling warm at long term and elevated HR unable to provide history at this time labs, cultures, zosyn ordered, IVF. Differential Diagnosis Differential Diagnoses: The differential diagnosis associated with the presentation includes UTI, aspiration pneumonia Admission/Observation Consideration of admission/observation: Escalation of care including admission/observation considered Lab Data [facility] Lab Attestation statement: I reviewed the patient's lab results. 07/08/23 09:20 07/08/23 09:20 Labs: Lab Results 07/08/23 07/08/23 07/08/23 Range/Units 09:20 11:37 14:05 WBC 5.6 (4.8-10.8) X10*3/uL RBC 3.19 L (4.60-5.80) X10*6/uL Hgb 10.3 L (14.0-18.0) g/dl Hct 30.2 L (42.0-52.0) % MCV 94.7 (80.0-98.0) fL MCH 32.3 (27.0-33.0) pg MCHC 34.1 (31.0-36.0) g/dl RDW 14.2 (11.0-16.0) % Plt Count 145 L (160-400) X10*3/uL MPV 11.4 (9.4-12.4) fL Immature Gran % (Auto) 0.5 H (0.0-0.4) % Neut % (Auto) 63.8 (45-73) % Lymph % (Auto) 15.4 L (20-40) % Brooks % (Auto) 19.7 H (2-11) % Eos % (Auto) 0.2 (0-4) % Baso % (Auto) 0.4 (0-2) % Lymph # (Auto) 0.9 L (1.2-4.9) X10*3/uL Brooks # (Auto) 1.1 (0.1-1.2) X10*3/uL Eos # (Auto) 0.0 (0.0-0.4) X10*3/uL Baso # (Auto) 0.0 (0.0-0.2) X10*3/uL Abs Immat Gran (auto) 0.03 (0.00-0.03) X10*3/uL Absolute Neuts (auto) 3.6 (2.0-8.3) x10*3/uL Absolute Nucleated RBC 0.000 (0.0-0.012) X10*3/uL Nucleated RBC % (auto) 0.0 (0.0-0.2) /100WBC Sodium 136 (135-145) mmol/L Potassium 3.8 (3.3-5.1) mmol/L Chloride 97 (96-108) mmol/L Carbon Dioxide 28 (22-29) mmol/L Anion Gap 15 (12-20) BUN 21 H (9-16) mg/dL Creatinine 0.90 (0.5-1.4) mg/dL Estim Creat Clear Calc 72.8 Estimated GFR > 60 Random Glucose 110 (60-115) mg/dL Lactic Acid 2.4 H* 1.4 (0.5-2.0) mmol/L Calcium 9.4 (8.4-10.2) mg/dL Magnesium 1.9 (1.6-2.6) mg/dL Total Bilirubin 0.3 (0.0-1.0) mg/dL Direct Bilirubin 0.1 (0.0-0.5) mg/dL AST 20 (5-37) U/L ALT 9 (0-40) U/L Alkaline Phosphatase 74 (39-117) U/L Total Protein 7.7 (6.5-8.0) g/dL Albumin 3.1 L (3.5-5.0) g/dL Lipase 20 (8-78) U/L Procalcitonin 0.08 ng/mL Urine Color Yellow Urine Appearance Clear Urine pH 8.0 (5.0-9.0) Ur Specific [place] <= 1.005 (1.005-1.025) Urine Protein Negative (Neg-Trace) mg/dL Urine Glucose (UA) Negative (Negative) mg/dL Urine Ketones Negative (Negative) mg/dL Urine Blood Trace H (Negative) Urine Nitrite Negative (Negative) Ur Leukocyte Esterase Negative (Negative) Urine RBC 0-2 (0-2) /HPF Urine WBC 0-5 (0-5) /HPF Ur Squamous Epith Cells 0-2 (0-2) /HPF Urine Bacteria None Seen (None Seen) Hyaline Casts 0-2 (0-2) /LPF Influenza Type A (PCR) NEGATIVE (Negative) Influenza Type B (PCR) NEGATIVE (Negative) RSV RNA Qual (PCR) NEGATIVE (Negative) SARS-CoV-2 RNA (RT-PCR) NEGATIVE (Negative) Independent Interpretation I performed an independent interpretation of an: Plain X-Ray (no consolidation) Radiology Impression Discussion of test interpretation with radiology: I have reviewed the radiologist's reading. Independent Historian Clinical information obtained from an independent historian. History obtained from or confirmed by: EMS External Record Review External record reviewed: Inpatient record Discharge Plan Discharge Clinical Impression: Acidosis, lactic, Weakness Patient Disposition: Still a Patient Prescriptions: No Action bacitracin zinc 500 unit/gram ointment 1 appl topical BID PRN (Reason: Wound Care) acetaminophen 325 mg tablet 650 mg feeding tube Q6H PRN (Reason: Pain) Qty: 60 0RF dextromethorphan-guaifenesin 10-100 mg/5 mL Liquid 10 ml feeding tube Q6H PRN (Reason: Cough) Qty: 500 0RF olanzapine 10 mg tablet 10 mg feeding tube DAILY Qty: 60 0RF magnesium hydroxide [Milk of Magnesia] 400 mg/5 mL suspension 30 ml feeding tube DAILY PRN (Reason: Constipation) Qty: 355 0RF simethicone [Gas Relief (simethicone)] 40 mg/0.6 mL drops,suspension 40 mg feeding tube TID@0800,1600,2000 Qty: 30 0RF polyethylene glycol 3350 17 gram/dose powder 17 g feeding tube BID Qty: 510 0RF Rx Instructions: hold if more than 3 BM's in 1 day olanzapine 20 mg tablet 20 mg feeding tube BEDTIME Qty: 30 0RF loratadine 10 mg tablet 10 mg feeding tube DAILY Qty: 60 0RF omeprazole 20 mg capsule,delayed release(DR/EC) 40 mg feeding tube DAILY@0630 Rx Instructions: needs to be given with water juice or snack docusate sodium 60 mg/15 mL syrup 100 mg feeding tube BEDTIME psyllium Powder 1 tbsp feeding tube BID@0800,1600 Rx Instructions: mix into at least 8 oz of water or juice before administering valproic acid (as sodium salt) 250 mg/5 mL solution 1,000 mg feeding tube BID@0800,2000 citalopram 40 mg tablet 40 mg feeding tube DAILY citalopram 20 mg tablet 20 mg feeding tube DAILY finasteride 5 mg tablet 5 mg feeding tube DAILY amoxicillin-pot clavulanate 600-42.9 mg/5 mL suspension for reconstitution 5 ml feeding tube BID Qty: 75 0RF oxycodone 5 mg tablet 5 mg PO Q8H PRN (Reason: pain) 3 Days Qty: 8 0RF Rx Instructions: Partial Fill upon patient request. acetaminophen [Tylenol] 325 mg capsule 650 mg PO QID 3 Days Qty: 24 0RF nystatin 100,000 unit/gram powder 1 appl topical BID (DME) #18 MACKENZIE gastrostomy feeding #18 [place] See Rx Instructions .Route .MEDSUPPLY Qty: 1 0RF Rx Instructions: Every 6 months Print Language: Syrian
[2023-07-08 09:26] LABS: MANUAL DIFF FLAG NO
[2023-07-08 09:27] LABS: Basophils Percent Auto 0.4 % (0-2); Eosinophils Percent Auto 0.2 % (0-4); Hematocrit 30.2 % (42.0-52.0); Hemoglobin 10.3 g/dl (14.0-18.0); Imm Gran Abs Auto 0.03 X10*3/uL (0.00-0.03); Imm Gran Pct Auto 0.5 % (0.0-0.4); Lymphocytes Absolute Auto 0.9 X10*3/uL (1.2-4.9); Lymphocytes Percent Auto 15.4 % (20-40); Mean Corpuscular HGB Conc 34.1 g/dl (31.0-36.0); Mean Corpuscular Hemoglobin 32.3 pg (27.0-33.0); Mean Corpuscular Volume 94.7 fL (80.0-98.0); Mean Platelet Volume 11.4 fL (9.4-12.4); Monocytes Absolute Auto 1.1 X10*3/uL (0.1-1.2); Monocytes Percent Auto 19.7 % (2-11); Neutrophils Absolute Auto 3.6 x10*3/uL (2.0-8.3); Neutrophils Percent Auto 63.8 % (45-73); Platelet Count 145 X10*3/uL (160-400); Red Blood Count 3.19 X10*6/uL (4.60-5.80); Red Cell Distribution Width 14.2 % (11.0-16.0); White Blood Count 5.6 X10*3/uL (4.8-10.8)
[2023-07-08] MEDS: 0.9 % Sodium Chloride 1,000 ML 999 ML IV ×2 (09:29→14:51)
[2023-07-08] MEDS: Piperacillin Sodium/Tazobactam 4.5 GM in 0.9 % Sodium Chloride 100 ML IV (09:35)
[2023-07-08 09:53] LABS: Lactic Acid 2.4 mmol/L (0.5-2.0)
[2023-07-08] MEDS: Acetaminophen Supp 650 MG SUPP.RECT PR (09:54)
[2023-07-08 09:57] LABS: Alanine Aminotransferase 9 U/L (0-40); Albumin Level 3.1 g/dL (3.5-5.0); Alkaline Phosphatase 74 U/L (39-117); Anion Gap 15 (12-20); Aspartate Amino Transferase 20 U/L (5-37); Bilirubin Direct 0.1 mg/dL (0.0-0.5); Bilirubin Total 0.3 mg/dL (0.0-1.0); Blood Urea Nitrogen 21 mg/dL (9-16); Calcium 9.4 mg/dL (8.4-10.2); Carbon Dioxide 28 mmol/L (22-29); Chloride 97 mmol/L (96-108); Creatinine Clr Calc Pharmacy 72.8; Estimated Glomerular Filt Rate > 60; Glucose Random 110 mg/dL (60-115); Lipase 20 U/L (8-78); Magnesium 1.9 mg/dL (1.6-2.6); Potassium 3.8 mmol/L (3.3-5.1); Sodium 136 mmol/L (135-145); Total Protein 7.7 g/dL (6.5-8.0)
--- NOTE | 2023-07-08 09:59 | PC.NURSE ---
patient was put on 2LNC as oxygen was low initially. with 2 LNC his oxygen is 100 Percent. MD marte
[2023-07-08 10:12] LABS: Procalcitonin 0.08 ng/mL
[2023-07-08 10:16] LABS: Influenza A PCR NEGATIVE (Negative); Influenza B PCR NEGATIVE (Negative); Resp Syncy Virus RNA Qual PCR NEGATIVE (Negative); SARS COV2 PCR INHOUSE NEGATIVE (Negative)
[2023-07-08 11:24] LABS: Reflex Lactate? Lactic Acid Added
[2023-07-08 11:52] LABS: Lactic Acid 1.4 mmol/L (0.5-2.0)
[2023-07-08] MEDS: iohexoL 350 MG/ML 100 ML INFUS..BTL IV (14:05)
[2023-07-08 14:22] LABS: Appearance Urine Clear; Color Urine Yellow; Glucose Urine UA Negative (Negative); Leukocyte Esterase Urine Negative (Negative); Nitrite Urine Negative (Negative); Specific Gravity - Urine <= 1.005 (1.005-1.025); UMIC TRIGGER UACC YES; Urine Blood Trace (Negative); Urine Ketones Negative (Negative); Urine Protein Negative (Neg-Trace)
[2023-07-08 14:25] LABS: Bacteria Urine None Seen (None Seen); Hyaline Casts Urine 0-2 /LPF (0-2); RBC Urine 0-2 /HPF (0-2); Squamous Epithelial Cell Urine 0-2 /HPF (0-2); WBC Urine 0-5 /HPF (0-5)
[2023-07-08] MEDS: 0.9 % Sodium Chloride 1,000 ML 100 ML IVCONT (15:52)
--- NOTE | 2023-07-08 19:17 | PC.NURSE ---
bilat ivs removed at discharge [place] [facility] removed report given to long-term staff member and ems prior to transport staff member verbalized understanding of discharge plan
== END 2023-07-08 19:19 | disposition home or self-care (01) ==
PROVIDERS: Emergency Provider Emergency Medicine; PCP Internal Medicine
DX: E87.20 Acidosis, unspecified (principal); R53.1 Weakness; R50.9 Fever, unspecified; I12.9 Hypertensive chronic kidney disease with stage 1 through stage 4 chronic kidney disease, or unspecified chronic kidney disease; N18.9 Chronic kidney disease, unspecified; E78.5 Hyperlipidemia, unspecified; F84.0 Autistic disorder; Z79.899 Other long term (current) drug therapy; Z03.818 Encounter for observation for suspected exposure to other biological agents ruled out
CPT/HCPCS: 0241U; 36415; 71045; 74177; 80048; 80076; 81001; 83605; 83690; 83735; 84145; 85025; 87040; 87147; 87205; 96361; 96374; 99284; 99285; J2543; Q9967

== ENCOUNTER 2023-11-12 20:28 | Emergency (ER) | payer MEDICARE, MEDICAID, SELFPAY ==
--- NOTE | 2023-11-12 | ECG_ITS ---
Test Reason : VOMITING Blood Pressure : / mmHG Vent. Rate : 096 BPM Atrial Rate : 096 BPM P-R Int : 154 ms QRS Dur : 082 ms QT Int : 380 ms P-R-T Axes : 059 039 037 degrees QTc Int : 480 ms Normal sinus rhythm Nonspecific ST abnormality Prolonged QT Abnormal ECG When compared with ECG of 07-JUL-2023 00:52, QT has lengthened Referred By: Generic ED Physician Electronically Signed By:JEANNIE PRIETO
--- NOTE | ~2023-11-12 | XR_ITS ---
EXAMINATION: XR CHEST CLINICAL INFORMATION: Low oxygen saturations. COMPARISON: Radiographs dated 07/08/2023. TECHNIQUE: Frontal view of the chest was obtained. FINDINGS: The patient is rotated. No significant abnormality is noted involving the heart, lungs, mediastinum, bony thorax or soft tissues. There is gaseous distention of upper abdominal bowel loops. XR/XR chest 1V IMPRESSION: 1. No active cardiopulmonary disease. 2. There is incompletely covered gaseous distention of upper abdominal bowel loops. Electronically signed by: Frederick Stringer MD 11/12/2023 09:38 PM EDT
[2023-11-12 20:36] VITALS: BP 116/84; BP 141/98; PULSE 92; PULSE 98; RESP 20; O2SAT 98; BMI 29.0
[2023-11-12 21:15] LABS: Mean Corpuscular Volume 94.6 fL (80.0-98.0); PLT CLUMP 1; SCAN SMEAR FLAG 1
[2023-11-12 21:17] LABS: Basophils Percent Auto 0.1 % (0-2); Hematocrit 36.8 % (42.0-52.0); Hemoglobin 12.5 g/dl (14.0-18.0); Imm Gran Abs Auto 0.04 X10*3/uL (0.00-0.03); Imm Gran Pct Auto 0.3 % (0.0-0.4); Lymphocytes Absolute Auto 0.5 X10*3/uL (1.2-4.9); Lymphocytes Percent Auto 4.1 % (20-40); Mean Corpuscular Hemoglobin 32.1 pg (27.0-33.0); Mean Platelet Volume 10.4 fL (9.4-12.4); Monocytes Absolute Auto 0.8 X10*3/uL (0.1-1.2); Monocytes Percent Auto 5.9 % (2-11); Neutrophils Absolute Auto 11.3 x10*3/uL (2.0-8.3); Neutrophils Percent Auto 89.6 % (45-73); Red Blood Count 3.89 X10*6/uL (4.60-5.80); Red Cell Distribution Width 14.9 % (11.0-16.0)
[2023-11-12 21:29] LABS: Alanine Aminotransferase 32 U/L (0-40); Albumin Level 3.6 g/dL (3.5-5.0); Alkaline Phosphatase 98 U/L (39-117); Anion Gap 13 (12-20); Aspartate Amino Transferase 44 U/L (5-37); Bilirubin Direct 0.3 mg/dL (0.0-0.5); Bilirubin Total 0.6 mg/dL (0.0-1.0); Blood Urea Nitrogen 31 mg/dL (9-16); Calcium 9.9 mg/dL (8.4-10.2); Carbon Dioxide 32 mmol/L (22-29); Chloride 96 mmol/L (96-108); Creatinine Clr Calc Pharmacy 73.8; Estimated Glomerular Filt Rate > 60; Glucose Random 106 mg/dL (60-115); Lipase 21 U/L (8-78); Potassium 3.8 mmol/L (3.3-5.1); Sodium 137 mmol/L (135-145); Total Protein 8.6 g/dL (6.5-8.0)
[2023-11-12 21:37] LABS: MANUAL DIFF FLAG NO; Platelet Count 139 X10*3/uL (160-400); White Blood Count 12.6 X10*3/uL (4.8-10.8)
--- NOTE | 2023-11-12 21:40 | ED_ITS ---
HPI - Nausea/Vomiting/Diarrhea General Chief complaint: Nausea/Vomiting/Diarrhea Stated complaint: covid vaccine yesterday, vomiting, low o2 on RA Time Seen by Provider: 11/12/23 21:31 Source: EMS Mode of arrival: EMS Limitations: other (Nonverbal) History of Present Illness ED Provider: daiana ALMODOVAR Narrative: Patient is 60 years old with history of autism intellectual disability bipolar seizure disorder nonverbal with feeding tube had COVID vaccination yesterday and today vomited 4 times prior to arrival desaturated to 80% at room air but on arrival was saturating 96% without any active vomiting Related Data Home Medications ?Medication ?Instructions ?Recorded ?Confirmed bacitracin zinc 500 unit/gram 1 appl topical BID PRN Wound Care 12/24/21 04/01/23 topical ointment docusate sodium 60 mg/15 mL oral 100 mg feeding tube BEDTIME 11/10/22 04/01/23 syrup omeprazole 20 mg capsule,delayed 40 mg feeding tube DAILY@0630 11/10/22 04/01/23 release nystatin 100,000 unit/gram topical 1 appl topical BID 12/18/22 04/01/23 powder citalopram 20 mg tablet 20 mg feeding tube DAILY 04/01/23 04/01/23 citalopram 40 mg tablet 40 mg feeding tube DAILY 04/01/23 04/01/23 finasteride 5 mg tablet 5 mg feeding tube DAILY 04/01/23 04/01/23 psyllium 1 tbsp feeding tube BID@0800,1600 04/01/23 04/01/23 valproic acid (as sodium salt) 250 1,000 mg feeding tube BID@0800,2000 04/01/23 04/01/23 mg/5 mL oral solution Previous Rx's ?Medication ?Instructions ?Recorded acetaminophen 325 mg tablet 650 mg (2 x 325 mg) feeding tube 01/16/22 Q6H PRN Pain #60 tabs dextromethorphan-guaifenesin 10 10 ml feeding tube Q6H PRN Cough 01/16/22 mg-100 mg/5 mL oral liquid #500 mL loratadine 10 mg tablet 10 mg feeding tube DAILY #60 tabs 01/16/22 magnesium hydroxide 400 mg/5 mL 30 ml feeding tube DAILY PRN 01/16/22 oral suspension (Milk of Magnesia) Constipation #355 mL olanzapine 10 mg tablet 10 mg feeding tube DAILY #60 tabs 01/16/22 olanzapine 20 mg tablet 20 mg feeding tube BEDTIME #30 tabs 01/16/22 polyethylene glycol 3350 17 17 g feeding tube BID #510 grams 01/16/22 gram/dose oral powder simethicone 40 mg/0.6 mL oral 40 mg (0.6 mL) feeding tube 01/16/22 drops,suspension (Gas Relief TID@0800,1600,2000 #30 mL (simethicone)) #18 MACKENZIE gastrostomy feeding #1 ea 06/20/22 amoxicillin 600 mg-potassium 5 ml feeding tube BID #75 mL 04/05/23 clavulanate 42.9 mg/5 mL oral suspension acetaminophen 325 mg capsule 650 mg (2 x 325 mg) PO QID 3 days 05/13/23 (Tylenol) #24 caps oxycodone 5 mg tablet 5 mg PO Q8H PRN pain 3 days #8 tabs 05/13/23 Allergies Allergy/AdvReac Type Severity Reaction Status Date / Time haloperidol [From HALDOL] AdvReac Unknown UNKNOWN Verified 11/12/23 20:36 metoclopramide [From REGLAN] AdvReac Unknown UNKNOWN Verified 11/12/23 20:36 Review of Systems 2 Review of Systems: Yes all other systems are reviewed and are negative PMFSH Past Medical History Medical History Pica Seizures BPH (benign prostatic hyperplasia) Dysphagia Pneumonia Mentally challenged Developmental non-verbal disorder Autism Severe sepsis Hydrocele Chronic renal disease Hyperlipemia Anemia Hypertension Hiatal hernia GERD (gastroesophageal reflux disease) OCD (obsessive compulsive disorder) Bipolar 1 disorder Surgical History History of colectomy H/O exploratory laparotomy Social History Social History Household Members: Other Household Members Other:: prison, [facility] services Housing: Other Housing Other:: prison Do you presently have visiting nurse or other home services: Yes Unable to assess alcohol history related to: Unknown Alcohol intake: never Comment: [employer] home caregiver at bedside Patient Tobacco Use Status: Never used Tobacco Use of substances other than those prescribed or required for medical reasons: Unknown Advance Directives: No Advance Directives Information Provided: No Advance Directives Date on File: 12/24/21 Do you have a plan to hurt others: No Plan service: No Current occupational status: disabled Physical Exam 2 Vital Signs: Vital Signs: Last Vital Signs Temp 98.2 F 11/12/23 23:36 Pulse 97 11/12/23 23:36 Resp 20 11/12/23 23:36 BP 117/72 11/12/23 23:36 Pulse Ox 96 11/12/23 23:36 O2 Del Method Room Air 11/12/23 23:36 BMI result Body Mass Index 29.0 Appearance: Alert. Non verbal. No acute distress. Eyes: No pallor or icterus ENT: Pharynx normal. Oral Mucosa moist Neck: Normal inspection. Neck supple. CVS: Normal heart rate and rhythm. Pulses normal. Respiratory: No respiratory distress. Equal air entry bilateral, no wheezing/rales/rhonchi Abdomen: Soft and nontender. Bowel sounds are present, no mass palpable, no CVA tenderness rectal: Liquid stool Skin: Skin warm and dry. Normal skin color. Normal skin turgor. Extremities: No lower extremity edema. No calf tenderness Neuro: Alert and awake Medical Decision Making Medical Decision Making MDM Narrative: Patient is autistic within likely disability nonverbal feeding tube came for vomiting 4 times today after feeding at this time patient abdominal soft with good bowel sounds rectum is empty not in any distress will check the urine Lab Data 11/12/23 21:09 11/12/23 21:09 Labs: Lab Results 11/12/23 11/12/23 Range/Units 21:09 22:14 WBC 12.6 H (4.8-10.8) X10*3/uL RBC 3.89 L D (4.60-5.80) X10*6/uL Hgb 12.5 L D (14.0-18.0) g/dl Hct 36.8 L D (42.0-52.0) % MCV 94.6 (80.0-98.0) fL MCH 32.1 (27.0-33.0) pg MCHC 34.0 (31.0-36.0) g/dl RDW 14.9 (11.0-16.0) % Plt Count 139 L (160-400) X10*3/uL MPV 10.4 (9.4-12.4) fL Immature Gran % (Auto) 0.3 (0.0-0.4) % Neut % (Auto) 89.6 H (45-73) % Lymph % (Auto) 4.1 L (20-40) % Stevens % (Auto) 5.9 (2-11) % Eos % (Auto) 0.0 (0-4) % Baso % (Auto) 0.1 (0-2) % Lymph # (Auto) 0.5 L (1.2-4.9) X10*3/uL [place] # (Auto) 0.8 (0.1-1.2) X10*3/uL Eos # (Auto) 0.0 (0.0-0.4) X10*3/uL Baso # (Auto) 0.0 (0.0-0.2) X10*3/uL Abs Immat Gran (auto) 0.04 H (0.00-0.03) X10*3/uL Absolute Neuts (auto) 11.3 H (2.0-8.3) x10*3/uL Absolute Nucleated RBC 0.000 (0.0-0.012) X10*3/uL Nucleated RBC % (auto) 0.0 (0.0-0.2) /100WBC Sodium 137 (135-145) mmol/L Potassium 3.8 (3.3-5.1) mmol/L Chloride 96 (96-108) mmol/L Carbon Dioxide 32 H (22-29) mmol/L Anion Gap 13 (12-20) BUN 31 H (9-16) mg/dL Creatinine 0.96 (0.5-1.4) mg/dL Estim Creat Clear Calc 73.8 Estimated GFR > 60 Random Glucose 106 (60-115) mg/dL Calcium 9.9 (8.4-10.2) mg/dL Total Bilirubin 0.6 (0.0-1.0) mg/dL Direct Bilirubin 0.3 (0.0-0.5) mg/dL AST 44 H (5-37) U/L ALT 32 (0-40) U/L Alkaline Phosphatase 98 (39-117) U/L Total Protein 8.6 H (6.5-8.0) g/dL Albumin 3.6 (3.5-5.0) g/dL Lipase 21 (8-78) U/L Urine Color Yellow Urine Appearance Cloudy Urine pH >= 9.0 (5.0-9.0) Ur Specific [place] 1.015 (1.005-1.025) Urine Protein Trace (Neg-Trace) mg/dL Urine Glucose (UA) Negative (Negative) mg/dL Urine Ketones Negative (Negative) mg/dL Urine Blood Negative (Negative) Urine Nitrite Negative (Negative) Ur Leukocyte Esterase Moderate (2+) H (Negative) Urine RBC 0-2 (0-2) /HPF Urine WBC 6-10 (0-5) /HPF Ur Squamous Epith Cells 0-2 (0-2) /HPF Urine Bacteria 2+ (None Seen) Hyaline Casts 0-2 (0-2) /LPF Discharge Plan Discharge Clinical Impression: Vomiting Patient Disposition: Home, Self-Care Instructions: Acute Nausea and Vomiting (ED) Additional Instructions: Decrease the feeding if he continues to vomit Use medication for constipation if no bowel movement Report back to ER if high fever or vomiting continue Prescriptions: No Action bacitracin zinc 500 unit/gram ointment 1 appl topical BID PRN (Reason: Wound Care) acetaminophen 325 mg tablet 650 mg feeding tube Q6H PRN (Reason: Pain) Qty: 60 0RF dextromethorphan-guaifenesin 10-100 mg/5 mL Liquid 10 ml feeding tube Q6H PRN (Reason: Cough) Qty: 500 0RF olanzapine 10 mg tablet 10 mg feeding tube DAILY Qty: 60 0RF magnesium hydroxide [Milk of Magnesia] 400 mg/5 mL suspension 30 ml feeding tube DAILY PRN (Reason: Constipation) Qty: 355 0RF simethicone [Gas Relief (simethicone)] 40 mg/0.6 mL drops,suspension 40 mg feeding tube TID@0800,1600,2000 Qty: 30 0RF polyethylene glycol 3350 17 gram/dose powder 17 g feeding tube BID Qty: 510 0RF Rx Instructions: hold if more than 3 BM's in 1 day olanzapine 20 mg tablet 20 mg feeding tube BEDTIME Qty: 30 0RF loratadine 10 mg tablet 10 mg feeding tube DAILY Qty: 60 0RF omeprazole 20 mg capsule,delayed release(DR/EC) 40 mg feeding tube DAILY@0630 Rx Instructions: needs to be given with water juice or snack docusate sodium 60 mg/15 mL syrup 100 mg feeding tube BEDTIME psyllium Powder 1 tbsp feeding tube BID@0800,1600 Rx Instructions: mix into at least 8 oz of water or juice before administering valproic acid (as sodium salt) 250 mg/5 mL solution 1,000 mg feeding tube BID@0800,2000 citalopram 40 mg tablet 40 mg feeding tube DAILY citalopram 20 mg tablet 20 mg feeding tube DAILY finasteride 5 mg tablet 5 mg feeding tube DAILY amoxicillin-pot clavulanate 600-42.9 mg/5 mL suspension for reconstitution 5 ml feeding tube BID Qty: 75 0RF oxycodone 5 mg tablet 5 mg PO Q8H PRN (Reason: pain) 3 Days Qty: 8 0RF Rx Instructions: Partial Fill upon patient request. acetaminophen [Tylenol] 325 mg capsule 650 mg PO QID 3 Days Qty: 24 0RF nystatin 100,000 unit/gram powder 1 appl topical BID (DME) #18 MACKENZIE gastrostomy feeding #18 Polish See Rx Instructions .Route .MEDSUPPLY Qty: 1 0RF Rx Instructions: Every 6 months Interventions: ED Discharge Assessment Last Done: 11/12/23 23:36 Discharge Date/Time: 11/13/23 00:09 Print Language: Sami
[2023-11-12 22:00] VITALS: BP 117/72; PULSE 97; RESP 20; TEMP 36.8; O2SAT 96
[2023-11-12 22:24] LABS: Appearance Urine Cloudy; Color Urine Yellow; Glucose Urine UA Negative (Negative); Leukocyte Esterase Urine Moderate (2+) (Negative); Nitrite Urine Negative (Negative); PH >= 9.0 (5.0-9.0); Specific Gravity - Urine 1.015 (1.005-1.025); UMIC TRIGGER UACC YES; Urine Blood Negative (Negative); Urine Ketones Negative (Negative); Urine Protein Trace mg/dL (Neg-Trace)
[2023-11-12 22:37] LABS: Bacteria Urine 2+ (None Seen); Hyaline Casts Urine 0-2 /LPF (0-2); RBC Urine 0-2 /HPF (0-2); Squamous Epithelial Cell Urine 0-2 /HPF (0-2); UACC Culture Trigger YES
--- NOTE | 2023-11-12 22:54 | PC.NURSE ---
this RN called senior living staff to let them know no acute findings today in ED. pt has been resting comfortably, has not vomited once since being in ED, O2 has been 96-98% on room air, with no apparent distress noted. pt medically cleared to be discharged to return back to facility, staff member at bedside aware
[2023-11-12 23:36] VITALS: BP 117/72; PULSE 97; RESP 20; TEMP 36.8; O2SAT 96
== END 2023-11-13 00:09 | disposition home or self-care (01) ==
PROVIDERS: Emergency Provider Internal Medicine
DX: R11.2 Nausea with vomiting, unspecified (principal); F84.0 Autistic disorder; F79 Unspecified intellectual disabilities; R94.31 Abnormal electrocardiogram [ECG] [EKG]; Z79.899 Other long term (current) drug therapy
CPT/HCPCS: 36415; 71045; 80048; 80076; 81001; 83690; 85025; 87086; 87088; 87186; 93005; 99283; 99285

== ENCOUNTER 2023-11-13 07:34 | Inpatient (IN) | payer MEDICARE, MEDICAID, SELFPAY ==
[2023-11-13] VITALS (14 sets, daily range): BP systolic 83–124; BP diastolic 50–87; PULSE 65–98; RESP 13–20; TEMP 36.2–37.9; O2SAT 90–99; BMI 26.7
--- NOTE | ~2023-11-13 | XR_ITS ---
EXAMINATION: XR CHEST CLINICAL INFORMATION: Fever. COMPARISON: November 12, 2023 TECHNIQUE: 2 views of the chest were obtained. FINDINGS: Moderate lung volumes. Patchy airspace disease in the right lower lobe. No pleural effusion. Cardiac silhouette is unchanged. Persisting gaseous distention of bowel in the upper abdomen. XR/XR chest 2V IMPRESSION: Right lower lobe infiltrate. Follow-up until resolution is advised. Electronically signed by: Justin Morales MD 11/13/2023 08:47 AM EDT
--- NOTE | 2023-11-13 07:58 | ED_ITS ---
HPI - Fever General Chief Complaint: Fever Stated Complaint: FEVER,TYL DID NOT WORK,RECENT COVID VACC,FROM [facility] Time Seen by Provider: 11/13/23 07:42 Source: EMS Mode of arrival: EMS Limitations: other History of Present Illness HPI Narrative: 68-year-old male past medical history of autism intellectual disability bipolar disorder nonverbal feeding tube patient was seen last night for vomiting 4 times prior to arrival with desaturation on arrival was saturating at 96% without any active vomiting and sent back to the facility. Patient was found to have a fever this morning and sent in for fever MD elicited complaint: fever Related Data Home Medications ?Medication ?Instructions ?Recorded ?Confirmed bacitracin zinc 500 unit/gram 1 appl topical BID PRN Wound Care 12/24/21 04/01/23 topical ointment docusate sodium 60 mg/15 mL oral 100 mg feeding tube BEDTIME 11/10/22 04/01/23 syrup omeprazole 20 mg capsule,delayed 40 mg feeding tube DAILY@0630 11/10/22 04/01/23 release nystatin 100,000 unit/gram topical 1 appl topical BID 12/18/22 04/01/23 powder citalopram 20 mg tablet 20 mg feeding tube DAILY 04/01/23 04/01/23 citalopram 40 mg tablet 40 mg feeding tube DAILY 04/01/23 04/01/23 finasteride 5 mg tablet 5 mg feeding tube DAILY 04/01/23 04/01/23 psyllium 1 tbsp feeding tube BID@0800,1600 04/01/23 04/01/23 valproic acid (as sodium salt) 250 1,000 mg feeding tube BID@0800,2000 04/01/23 04/01/23 mg/5 mL oral solution Previous Rx's ?Medication ?Instructions ?Recorded acetaminophen 325 mg tablet 650 mg (2 x 325 mg) feeding tube 01/16/22 Q6H PRN Pain #60 tabs dextromethorphan-guaifenesin 10 10 ml feeding tube Q6H PRN Cough 01/16/22 mg-100 mg/5 mL oral liquid #500 mL loratadine 10 mg tablet 10 mg feeding tube DAILY #60 tabs 01/16/22 magnesium hydroxide 400 mg/5 mL 30 ml feeding tube DAILY PRN 01/16/22 oral suspension (Milk of Magnesia) Constipation #355 mL olanzapine 10 mg tablet 10 mg feeding tube DAILY #60 tabs 01/16/22 olanzapine 20 mg tablet 20 mg feeding tube BEDTIME #30 tabs 01/16/22 polyethylene glycol 3350 17 17 g feeding tube BID #510 grams 01/16/22 gram/dose oral powder simethicone 40 mg/0.6 mL oral 40 mg (0.6 mL) feeding tube 01/16/22 drops,suspension (Gas Relief TID@0800,1600,2000 #30 mL (simethicone)) #18 MACKENZIE gastrostomy feeding #1 ea 06/20/22 amoxicillin 600 mg-potassium 5 ml feeding tube BID #75 mL 04/05/23 clavulanate 42.9 mg/5 mL oral suspension acetaminophen 325 mg capsule 650 mg (2 x 325 mg) PO QID 3 days 05/13/23 (Tylenol) #24 caps oxycodone 5 mg tablet 5 mg PO Q8H PRN pain 3 days #8 tabs 05/13/23 Allergies Allergy/AdvReac Type Severity Reaction Status Date / Time haloperidol [From HALDOL] AdvReac Unknown UNKNOWN Verified 11/13/23 07:52 metoclopramide [From REGLAN] AdvReac Unknown UNKNOWN Verified 11/12/23 20:36 Review of Systems 2 Review of Systems: Unable to obtain patient is nonverbal at baseline [facility] Past Medical History Medical History Pica Seizures BPH (benign prostatic hyperplasia) Dysphagia Pneumonia Mentally challenged Developmental non-verbal disorder Autism Severe sepsis Hydrocele Chronic renal disease Hyperlipemia Anemia Hypertension Hiatal hernia GERD (gastroesophageal reflux disease) OCD (obsessive compulsive disorder) Bipolar 1 disorder Surgical History History of colectomy H/O exploratory laparotomy Social History Social History Household Members: Other Household Members Other:: custodial, [facility] Housing: Other Housing Other:: custodial Do you presently have visiting nurse or other home services: Yes Unable to assess alcohol history related to: Unknown Alcohol intake: never Comment: [employer] home caregiver at bedside Patient Tobacco Use Status: Never used Tobacco Smoked in Last 30 Days: No Use of substances other than those prescribed or required for medical reasons: No Advance Directives: No Advance Directives Information Provided: No Advance Directives Date on File: 12/24/21 service: No Current occupational status: disabled Physical Exam 2 Vital Signs: Vital Signs: Last Vital Signs Temp 100.3 F 11/13/23 07:47 Pulse 79 11/13/23 08:53 Resp 18 11/13/23 08:53 BP 93/62 11/13/23 08:53 Pulse Ox 96 11/13/23 08:53 O2 Del Method Nasal Cannula 11/13/23 08:53 O2 Flow Rate 2 11/13/23 08:53 BMI result Body Mass Index 26.7 General: Well-appearing well-nourished in no signs of distress HEENT: Normocephalic atraumatic Neck: No signs of JVD, no masses no tenderness or lymphadenopathy Cardiovascular: Regular rate and rhythm Respiratory: Clear to auscultation bilaterally Abdomen: Soft nontender no masses Extremities: Normal pedal pulses no signs of edema Skin: Dry warm no rashes Back: No tenderness full ROM Course Course Course Narrative: Patient has been requiring oxygen the patient will require admission for oxygen supplementation well as starting the patient on antibiotics likely aspiration pneumonia. Medications Administered Discontinued Medications Generic Name Dose Route Start Last Admin Trade Name Freq PRN Reason Stop Dose Admin Sodium Chloride 1,000 mls @ 999 mls/hr 11/13/23 08:00 11/13/23 08:54 Ns IV 11/13/23 09:00 999 mls/hr .Q1H1M RODOLFO Administration Acetaminophen 1,000 mg in 100 mls @ 400 mls/hr 11/13/23 07:59 11/13/23 08:53 Ofirmev IV 11/13/23 08:13 Infused ONCE ONE Infusion Ceftriaxone Sodium 1 gm/ 50 mls @ 100 mls/hr 11/13/23 08:44 11/13/23 09:04 Sodium Chloride IV 11/13/23 09:13 100 mls/hr ONCE ONE Administration Ketorolac Tromethamine 15 mg 11/13/23 07:59 11/13/23 08:34 Ketorolac Tromethamine 15 Mg/Ml Vial IVPUSH 11/13/23 08:00 15 mg ONCE ONE Administration Medical Decision Making Medical Decision Making [facility] Narrative: I will check labs do a straight cath urine analysis patient is currently not vomiting but did vomit several times yesterday and reassess. Differential Diagnosis Differential Diagnoses: The differential diagnosis associated with the presentation includes Pneumonia aspiration fever related to vaccine COVID UTI Admission/Observation Consideration of admission/observation: Escalation of care including admission/observation considered Consult Healthcare Provider Management of the patient was discussed with: Hospitalist Lab Data MDM Lab Attestation statement: I reviewed the patient's lab results. 11/13/23 08:16 11/13/23 08:58 Labs: Lab Results 11/13/23 11/13/23 Range/Units 08:16 08:58 WBC 10.3 (4.8-10.8) X10*3/uL RBC 3.47 L (4.60-5.80) X10*6/uL Hgb 11.2 L (14.0-18.0) g/dl Hct 32.8 L (42.0-52.0) % MCV 94.5 (80.0-98.0) fL MCH 32.3 (27.0-33.0) pg MCHC 34.1 (31.0-36.0) g/dl RDW 14.9 (11.0-16.0) % Plt Count 131 L (160-400) X10*3/uL MPV 10.4 (9.4-12.4) fL Immature Gran % (Auto) 0.5 H (0.0-0.4) % Neut % (Auto) 86.0 H (45-73) % Lymph % (Auto) 5.5 L (20-40) % [place] % (Auto) 7.7 (2-11) % Eos % (Auto) 0.0 (0-4) % Baso % (Auto) 0.3 (0-2) % Lymph # (Auto) 0.6 L (1.2-4.9) X10*3/uL [place] # (Auto) 0.8 (0.1-1.2) X10*3/uL Eos # (Auto) 0.0 (0.0-0.4) X10*3/uL Baso # (Auto) 0.0 (0.0-0.2) X10*3/uL Abs Immat Gran (auto) 0.05 H (0.00-0.03) X10*3/uL Absolute Neuts (auto) 8.9 H (2.0-8.3) x10*3/uL Absolute Nucleated RBC 0.000 (0.0-0.012) X10*3/uL Nucleated RBC % (auto) 0.0 (0.0-0.2) /100WBC Sodium 138 (135-145) mmol/L Potassium 3.8 (3.3-5.1) mmol/L Chloride 97 (96-108) mmol/L Carbon Dioxide 31 H (22-29) mmol/L Anion Gap 14 (12-20) BUN 31 H (9-16) mg/dL Creatinine 1.13 (0.5-1.4) mg/dL Estim Creat Clear Calc 52.3 Estimated GFR > 60 Random Glucose 98 (60-115) mg/dL Lactic Acid 1.6 (0.5-2.0) mmol/L Calcium 9.8 (8.4-10.2) mg/dL Ammonia 29 (13-55) umol/L Valproic Acid 17.3 L (50.0-100.0) mcg/mL Independent Interpretation I performed an independent interpretation of an: EKG and Plain X-Ray Interpretation: X-ray has a very nonspecific finding but was read as right lower lobe infiltrate Radiology Impression Discussion of test interpretation with radiology: I discussed test interpretation with the radiologist and I have reviewed the radiologist's reading. External Record Review External record reviewed: Inpatient record, Office record, Outpatient record and Prior outpatient labs Chronic Conditions Bipolar disorder intellectual disability autism vomiting recent COVID vaccine Core Measures AMI core measures followed: Yes Critical Care Time Critical Care Time Critical Care Time: Yes Total Critical Care Time: 35 Attestation: Patient with hypoxia requiring oxygen seen immediately by me patient not found to be septic lactic acid was normal does not have a very elevated white blood cell count but the patient required oxygen we will need admission to the hospitalist I did speak with the hospitalist. Discharge Plan Discharge Clinical Impression: Community acquired pneumonia, Fever, Hypoxia Patient Disposition: Admitted As Inpatient Print Language: Citizen Of [place]
--- NOTE | 2023-11-13 07:59 | ECG_ITS ---
Test Reason : SEPSIS Blood Pressure : / mmHG Vent. Rate : 079 BPM Atrial Rate : 079 BPM P-R Int : 152 ms QRS Dur : 088 ms QT Int : 426 ms P-R-T Axes : 059 026 037 degrees QTc Int : 488 ms Normal sinus rhythm Prolonged QT Abnormal ECG When compared with ECG of 12-NOV-2023 20:44, No significant change was found Referred By: Hernandez Talley Electronically Signed By:JEANNIE PRIETO
[2023-11-13 08:20] LABS: MANUAL DIFF FLAG NO
--- NOTE | 2023-11-13 08:25 | PC.NURSE ---
Pt [facility] from SNF[facility]. nonverbal at baseline and has gtube, NPO. Per staff who is at bedside, pt had recent covid vaccine and spiked fevers. Was here last night for fever and vomiting but sent home. Last given Tylenol at 0530 AM. Pt is alert and at his baseline, breathing even and unlabored. SPO2 89-90% on RA. Skin hot, rectal temp 100.3 Pt placed on 2L NC O2 with improvements to 97%
[2023-11-13 08:29] LABS: Basophils Percent Auto 0.3 % (0-2); Hematocrit 32.8 % (42.0-52.0); Hemoglobin 11.2 g/dl (14.0-18.0); Imm Gran Abs Auto 0.05 X10*3/uL (0.00-0.03); Imm Gran Pct Auto 0.5 % (0.0-0.4); Lymphocytes Absolute Auto 0.6 X10*3/uL (1.2-4.9); Lymphocytes Percent Auto 5.5 % (20-40); Mean Corpuscular HGB Conc 34.1 g/dl (31.0-36.0); Mean Corpuscular Hemoglobin 32.3 pg (27.0-33.0); Mean Corpuscular Volume 94.5 fL (80.0-98.0); Mean Platelet Volume 10.4 fL (9.4-12.4); Monocytes Absolute Auto 0.8 X10*3/uL (0.1-1.2); Monocytes Percent Auto 7.7 % (2-11); Neutrophils Absolute Auto 8.9 x10*3/uL (2.0-8.3); Platelet Count 131 X10*3/uL (160-400); Red Blood Count 3.47 X10*6/uL (4.60-5.80); Red Cell Distribution Width 14.9 % (11.0-16.0); White Blood Count 10.3 X10*3/uL (4.8-10.8)
[2023-11-13 08:33] LABS: Lactic Acid 1.6 mmol/L (0.5-2.0)
[2023-11-13] MEDS: Ketorolac Tromethamine 15 MG/ML VIAL IVPUSH (08:34)
[2023-11-13] MEDS: Acetaminophen 1,000 MG/100 ML PIGGYBACK 400 MG IV (08:35)
--- NOTE | 2023-11-13 08:49 | PC.NURSE ---
Pt hard stick. multiple attempts for blood
[2023-11-13] MEDS: 0.9 % Sodium Chloride 1,000 ML 999 ML IV ×2 (08:54→11:09)
[2023-11-13] MEDS: cefTRIAXone sodium 1 GM in 0.9 % Sodium Chloride 50 ML IV (09:04)
[2023-11-13 09:16] LABS: Ammonia 29 umol/L (13-55)
[2023-11-13 09:21] LABS: Valproate 17.3 mcg/mL (50.0-100.0)
[2023-11-13 09:22] LABS: Anion Gap 14 (12-20); Blood Urea Nitrogen 31 mg/dL (9-16); Calcium 9.8 mg/dL (8.4-10.2); Carbon Dioxide 31 mmol/L (22-29); Chloride 97 mmol/L (96-108); Creatinine Clr Calc Pharmacy 52.3; Estimated Glomerular Filt Rate > 60; Glucose Random 98 mg/dL (60-115); Potassium 3.8 mmol/L (3.3-5.1); Sodium 138 mmol/L (135-145)
[2023-11-13 09:39] LABS: COVID-19 Test Negative (Negative); IDNOW Serial# 08D9AD1C
[2023-11-13] MEDS: Doxycycline Hyclate 100 MG in 0.9 % Sodium Chloride 250 ML 166.67 MG IV (09:58)
--- NOTE | 2023-11-13 10:14 | PHA.MEDREC ---
Addendum entered by Carlos Marcano 11/13/23 10:23: Reviewed Original Note: Pharmacy Consult ? Medication Reconciliation Pharmacy has completed the medication reconciliation. Utilized list from [facility] to confirm med list
--- NOTE | 2023-11-13 11:14 | P.HPHOSP_ITS ---
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 Per nursing home staff at bedside, patient received the COVID 19 booster last night and subsequently developed low grade fever and vomited (nonbloody) last night. Apparently had similar reaction in past to the vaccine. He presented to the ED last night and was ultimately dischaged back home. This morning, was unwell appearing, lethargic, and febrile. He is unable to issue complaints but was apparently moaning and was flushed. On arrival, low grade fever of 100.3, with intermittent hypotension this morning to 83/50. Last night had leukocytosis 12.6, but no leukocytosis this morning. Apparently on arrival was hypoxic in the 80s and placed on 2L supplemental O2 now maintaining oximetry 98%. Creatinine slightly bumped from baseline at 1.13, baseline around 0.9, BUN 31. CO2 32. Lactic acid 1.6. Ammonia level 29, valproic acid level subtherapeutic at 17.3. CXR shows right lower lobe infiltrate. Negative for COVID-19. In the ED, has received ceftriaxone, doxycycline, IV Tylenol and ketorolac. He is also on his 2 L of IV NS. Review of Systems 2 Review of Systems: Yes Unobtainable due to mental condition [facility] Medical History Pica Seizures BPH (benign prostatic hyperplasia) Dysphagia Pneumonia Mentally challenged Developmental non-verbal disorder Autism Severe sepsis Hydrocele Chronic renal disease Hyperlipemia Anemia Hypertension Hiatal hernia GERD (gastroesophageal reflux disease) OCD (obsessive compulsive disorder) Bipolar 1 disorder Surgical History History of colectomy H/O exploratory laparotomy Social History Household Members: Other Household Members Other:: nursing home, [facility] Housing: Other Housing Other:: nursing home Do you presently have visiting nurse or other home services: Yes Unable to assess alcohol history related to: Unknown Alcohol intake: never Comment: [facility] caregiver at bedside Patient Tobacco Use Status: Never used Tobacco Smoked in Last 30 Days: No Use of substances other than those prescribed or required for medical reasons: No Advance Directives: No Advance Directives Information Provided: No Advance Directives Date on File: 12/24/21 service: No Current occupational status: disabled Meds Allergies Allergy/AdvReac Type Severity Reaction Status Date / Time haloperidol [From HALDOL] AdvReac Unknown UNKNOWN Verified 11/13/23 07:52 metoclopramide [From REGLAN] AdvReac Unknown UNKNOWN Verified 11/12/23 20:36 Active Medications: Current Medications Sodium Chloride (Ns) 1,000 mls @ 999 mls/hr IV .Q1H1M RODOLFO Stop: 11/13/23 12:15 Last Admin: 11/13/23 11:09 Dose: 999 mls/hr Home Medications ?Medication ?Instructions ?Recorded ?Confirmed ?Last Taken ?Type bacitracin zinc 500 unit/gram 1 appl topical BID PRN Wound Care 12/24/21 11/13/23 11/07/23 History topical ointment docusate sodium 60 mg/15 mL oral 100 mg feeding tube BEDTIME 11/10/22 11/13/23 11/12/23 History syrup omeprazole 20 mg capsule,delayed 40 mg feeding tube DAILY@0630 11/10/22 11/13/23 11/12/23 History release nystatin 100,000 unit/gram topical 1 appl topical BID 12/18/22 11/13/23 Unknown History powder citalopram 20 mg tablet 20 mg feeding tube DAILY 04/01/23 11/13/23 11/12/23 History citalopram 40 mg tablet 40 mg feeding tube DAILY 04/01/23 11/13/23 11/12/23 History finasteride 5 mg tablet 5 mg feeding tube DAILY 04/01/23 11/13/23 11/12/23 History valproic acid (as sodium salt) 250 1,000 mg feeding tube BID@0800,2000 04/01/23 11/13/23 11/12/23 History mg/5 mL oral solution diphenhydramine HCl 12.5 mg/5 mL 25 mg PO Q6H PRN Hives 11/13/23 11/13/23 Unknown History oral liquid furosemide 40 mg/4 mL oral solution 40 mg PO QAM 11/13/23 11/13/23 11/12/23 History zinc oxide-cod liver oil 40 % 1 appl topical QID PRN rash 11/13/23 11/13/23 Unknown History topical paste (Desitin) Physical Exam 2 Vital Signs and Narrative: Vital Signs: Last Vital Signs Temp 97.1 F 11/13/23 09:46 Pulse 65 11/13/23 11:05 Resp 18 11/13/23 11:05 BP 83/50 L 11/13/23 11:05 Pulse Ox 98 11/13/23 11:05 O2 Del Method Nasal Cannula 11/13/23 11:05 O2 Flow Rate 2 11/13/23 11:05 BMI result Body Mass Index 26.7 Constitutional - Awake but lethargive, unwell appearing, No apparent distress Eyes - PERRLA, EOMI Cardiovascular - S1S2, RRR, No edema Respiratory - Normal lung expansion, Normal respiratory effort, No respiratory distress on 2L O2, bilateral rhonchi Gastrointestinal - NT / ND; +BS; No rebound or guarding Extremities - no calf tenderness bilaterally, no swelling Skin - Warm/Dry Neurological - Alert & oriented x3 Psychological - Appropriate affect Results Labs 11/13/23 08:16 11/13/23 08:58 Labs: Laboratory Results - last 24 hr 11/13/23 11/13/23 08:16 08:58 MCV 94.5 MCH 32.3 MCHC 34.1 RDW 14.9 Plt Count 131 L MPV 10.4 Immature Gran % (Auto) 0.5 H Neut % (Auto) 86.0 H Lymph % (Auto) 5.5 L [place] % (Auto) 7.7 Eos % (Auto) 0.0 Baso % (Auto) 0.3 Lymph # (Auto) 0.6 L [place] # (Auto) 0.8 Eos # (Auto) 0.0 Baso # (Auto) 0.0 Abs Immat Gran (auto) 0.05 H Absolute Neuts (auto) 8.9 H Absolute Nucleated RBC 0.000 Nucleated RBC % (auto) 0.0 Anion Gap 14 Estim Creat Clear Calc 52.3 Estimated GFR > 60 Random Glucose 98 Lactic Acid 1.6 Calcium 9.8 Ammonia 29 Valproic Acid 17.3 L COVID-19 (SUNNI) Negative COVID-19 Clin Com See Note Imaging Radiologist's Impressions: Impressions Chest X-Ray 11/13/23 07:59 IMPRESSION: Right lower lobe infiltrate. Follow-up until resolution is advised. 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 No sepsis -CXR shows RLL infiltrate following episodes of vomiting x4 last night -IV unasyn (initaited 11/12) -NPO at baseline, solely uses g tube. Nutrition to follow for feeds -VBG with pH 7.39, pCO2 slightly elevated at 55, bicarb 34. Discontinue supplemental O2, keep oximetry >90% #Hypotension -not due to sepsis- no sirs criteria on admission -likely due to hypovolemia -contineu gentle IVF. Resume tube feeds # seizure disorder - continue valproate at current dose -valproic acid level 17.3, but ?missed doses due to being in the ED -Recheck trough in 2 days # mood disorder - continue citalopram, olanzapine # GERD - continue PPI # prostatism - continue finasteride, doxazosin VTE prophylaxis- LMWH Code status- full Guardian- Sherry Mcconnell- [phone] I anticipate that the patient will stay at least 2 midnights as an inpatient in the hospital due to acute hypoxemic respiratory failure due toaspiration pneumonia requiring IV antibiotics, IV fluids due to hypotension, and close monitoring to prevent recurrent aspiration. Quality Stroke Does the patient have a stroke diagnosis?: No VTE Prior VTE?: No VTE Risk Level:: Medical - moderate - high VTE Device Contraindication: Treatment Not Indicated VTE Drug Contraindication: N/A - Med Ordered
--- NOTE | 2023-11-13 11:29 | PC.NURSE ---
Provider is aware of low BP, fluids started
[2023-11-13 11:53] LABS: VBG Base Excess 8.1 mmol/L; VBG HCO3 34 mmol/L (22-26); VBG pCO2 55 mmHg; VBG pH 7.39 (7.32-7.43); VBG pO2 63 mmHg
[2023-11-13 11:57] LABS: Venous Blood Gas Refer to POC result
--- NOTE | 2023-11-13 12:06 | PC.NURSE ---
Staff remains at bedside with pt. Pt has hx of PICA and will put things in his mouth/ eat them, need to be aware
--- NOTE | 2023-11-13 12:06 | PC.NURSE ---
Pt trialed off O2 per provider request. 94-95% at this time.
[2023-11-13] MEDS: Ampicillin Sodium/Sulbactam Na 3 GM in 0.9 % Sodium Chloride 100 ML IV ×3 (12:12→23:58)
[2023-11-13] MEDS: Enoxaparin Sodium 40 MG/0.4 ML SYRINGE SUBCUT (12:13)
[2023-11-13] MEDS: Lactated Ringers 1,000 ML 80 ML IVCONT (12:49)
--- NOTE | 2023-11-13 13:20 | PC.NURSE ---
Noted that pt has had no urine output since hes been here. Staff said he had a large amount of urine output before coming in but none since. A [place] cath has been on with approx 15 mL of output. Bladder scanned performed and there is 198 mL. Provider alerted.
--- NOTE | 2023-11-13 13:23 | MHC.CLN ---
RE: CONSULT FOR TF HT 64 WT 155# IBW 130#+/-10% PT IS OVER WT FOR HT REVIEWED LABS ENN 1761KCALS, 70G PROTEIN, 2100ML DIET RX: NPO PT DEPENDENT ON TF FOR NUTRITION SUPPORT RECOMMEND JEVITY 1.0 CONT. AT MAX GOAL RATE 70ML/HR WITH 240ML FREE WATER FLUSHES Q 8 HRS TO PROVIDE 1781KCALS (25KCALS/KG), 74G PROTEIN (1.06G/KG), 2123ML TOTAL WATER FROM FORMULA AND FLUSHES (30ML/KG) START TF AT 20ML/HR AND INCREASE BY 10ML Q 4 HRS UNTIL MAX GOAL IS ACHIEVED MONITOR TOLERANCE AND LYTES
--- NOTE | 2023-11-13 13:58 | PC.NURSE ---
Bladder scanned again, found to have between 200-250mL. Provider reported to try again in 1 hour
--- NOTE | 2023-11-13 15:29 | PC.NURSE ---
Pt able to void approx 275 mL into [place] cath, bladder scanned post void appro 75 mL left. Provider updated
[2023-11-13 15:54] LABS: Appearance Urine Clear; Color Urine Yellow; Glucose Urine UA Negative (Negative); Leukocyte Esterase Urine Small (1+) (Negative); Nitrite Urine Negative (Negative); PH 7.5 (5.0-9.0); UMIC TRIGGER UACC YES; Urine Blood Negative (Negative); Urine Ketones Negative (Negative); Urine Protein Trace mg/dL (Neg-Trace)
[2023-11-13 16:13] LABS: Bacteria Urine 1+ (None Seen); Hyaline Casts Urine 0-2 /LPF (0-2); RBC Urine 0-2 /HPF (0-2); Squamous Epithelial Cell Urine 0-2 /HPF (0-2); UACC Culture Trigger YES
[2023-11-13] MEDS: Simethicone 40 MG/0.6 ML ORAL.SUSP G-TUBE ×2 (16:55→22:12)
--- NOTE | 2023-11-13 16:59 | PC.NURSE ---
G-tube used for meds with no issues, pt tolerated well. No residual prior to meds, flushes easily.
--- NOTE | 2023-11-13 17:28 | PC.NURSE ---
Per lead staff member at home, able to staff a sitter till 1030p, none on the overnight. Pt needs sitter due to PICA risk.
--- NOTE | 2023-11-13 18:35 | PC.NURSE ---
Called kitchen for tube feeding
--- NOTE | 2023-11-13 18:50 | PC.NURSE ---
G-tube feeding started per order
--- NOTE | 2023-11-13 20:36 | PC.NURSE ---
pt cleaned, changed and repositioned with RN and tech
[2023-11-13] MEDS: OLANZapine 10 MG TABLET 20 MG G-TUBE (21:11)
[2023-11-13] MEDS: Docusate Sodium 100 MG/10 ML LIQUID G-TUBE (21:11)
[2023-11-13] MEDS: polyethylene glycoL 3350 17 GM POWD.PACK G-TUBE (21:11)
[2023-11-13] MEDS: Nystatin Powder 15 GM BOTTLE 1 APPL TOPICAL (21:12)
[2023-11-13] MEDS: 0.9 % Sodium Chloride Flush 3 ML SYRINGE IVFLUSH (23:58)
[2023-11-14] MEDS: Lactated Ringers 1,000 ML 80 ML IVCONT ×2 (00:35→13:53)
[2023-11-14 04:00] VITALS: BP 125/59; PULSE 88; RESP 14; TEMP 37.3; O2SAT 92
[2023-11-14] MEDS: Ampicillin Sodium/Sulbactam Na 3 GM in 0.9 % Sodium Chloride 100 ML IV ×3 (05:35→17:55)
[2023-11-14 06:21] LABS: MANUAL DIFF FLAG NO
[2023-11-14 06:50] LABS: Anion Gap 11 (12-20); Blood Urea Nitrogen 24 mg/dL (9-16); Carbon Dioxide 28 mmol/L (22-29); Chloride 106 mmol/L (96-108); Creatinine Clr Calc Pharmacy 68.8; Estimated Glomerular Filt Rate > 60; Glucose Random 90 mg/dL (60-115); Potassium 3.2 mmol/L (3.3-5.1); Sodium 142 mmol/L (135-145)
[2023-11-14 07:06] LABS: Basophils Percent Auto 0.3 % (0-2); Hematocrit 29.5 % (42.0-52.0); Hemoglobin 9.9 g/dl (14.0-18.0); Imm Gran Abs Auto 0.03 X10*3/uL (0.00-0.03); Imm Gran Pct Auto 0.3 % (0.0-0.4); Lymphocytes Absolute Auto 1.6 X10*3/uL (1.2-4.9); Lymphocytes Percent Auto 16.4 % (20-40); Mean Corpuscular HGB Conc 33.6 g/dl (31.0-36.0); Mean Corpuscular Hemoglobin 32.5 pg (27.0-33.0); Mean Corpuscular Volume 96.7 fL (80.0-98.0); Monocytes Absolute Auto 0.6 X10*3/uL (0.1-1.2); Monocytes Percent Auto 5.8 % (2-11); Neutrophils Absolute Auto 7.5 x10*3/uL (2.0-8.3); Neutrophils Percent Auto 77.2 % (45-73); Platelet Count 132 X10*3/uL (160-400); Red Blood Count 3.05 X10*6/uL (4.60-5.80); White Blood Count 9.7 X10*3/uL (4.8-10.8)
[2023-11-14 07:22] VITALS: BP 151/70; PULSE 97; RESP 18; TEMP 37.1; O2SAT 93
[2023-11-14 07:28] VITALS: BP 151/70
[2023-11-14] MEDS: Furosemide 40 MG/4 ML SOLUTION PO (07:28)
[2023-11-14] MEDS: polyethylene glycoL 3350 17 GM POWD.PACK G-TUBE ×2 (07:28→20:07)
[2023-11-14] MEDS: OLANZapine 10 MG TABLET G-TUBE ×2 (07:29→20:08)
[2023-11-14] MEDS: Escitalopram Oxalate 10 MG TABLET 30 MG G-TUBE (07:29)
[2023-11-14] MEDS: Simethicone 40 MG/0.6 ML ORAL.SUSP G-TUBE ×3 (07:29→20:07)
[2023-11-14] MEDS: Loratadine 10 MG TABLET G-TUBE (07:29)
[2023-11-14] MEDS: Nystatin Powder 15 GM BOTTLE 1 APPL TOPICAL ×2 (07:31→20:10)
[2023-11-14 07:52] LABS: Magnesium 1.8 mg/dL (1.6-2.6)
[2023-11-14 08:06] LABS: Procalcitonin 0.38 ng/mL
[2023-11-14] MEDS: Potassium Chloride Packet 20 MEQ PACKET 40 MEQ G-TUBE (08:59)
--- NOTE | 2023-11-14 10:20 | MHC.CM.PN ---
IMM DELIVERED TO [facility], REQUESTS WHITE COPY BE SENT HOME WITH PT. YELLOW COPY PLACED IN CHART. PT LIVES IN A RETIREMENT. PT IS DEPENDENT WITH CARE AND ESSENTIALLY W/C BOUND. +[facility] ON FILE. PCP DR. ZIMMERMAN DP: PT WILL RETURN TO [facility] ON DC. [employer]ATION MANAGER CAIN ([phone]) [facility] WILL REQUIRE PPW TO BE COMPLETED BY MD BEFORE RETURNING ON DC. CM FAX NUMBER PROVIDED TO BEDSIDE [facility]. PT WILL REQUIRE BLS TRANSPORT ON DC. CM WILL CONTINUE TO FOLLOW FOR ANY CHANGE TO DC PLAN/NEEDS.
--- NOTE | 2023-11-14 10:28 | P.PNIM_ITS ---
Subjective Subjective Date of Service: 11/14/23 Interval History: nonverbal per [facility] staff, pt at baseline afebrile not hypoxic Review of Systems Review of Systems: Yes all other systems are reviewed and are negative Physical Exam 2 Vital Signs: Vital Signs: Last Vital Signs Temp 98.7 F 11/14/23 07:22 Pulse 97 11/14/23 07:22 Resp 18 11/14/23 07:22 BP 151/70 H 11/14/23 07:28 Pulse Ox 93 11/14/23 07:22 O2 Del Method Room Air 11/14/23 07:22 O2 Flow Rate 3 11/13/23 13:47 BMI result Body Mass Index 26.7 Gen: in no acute distress HEENT: sclera anicteric, moist mucus membranes Neck: supple Lungs: diminished at R base Heart: regular rate and rhythm, no murmurs Abd: soft, non-tender, non-distended, G tube in place with TFs at 50 mL/hr Ext: no edema Skin: warm/well-perfused Neuro: alert, nonverbal Psych: impaired insight Objective Data Active Medications Acetaminophen (Acetaminophen 325 Mg Tablet) 650 mg G-TUBE Q6H PRN PRN Reason: Pain mild, fever, thapa Bacitracin (Bacitracin Oint 14 Gm Tube) 1 appl TOPICAL BID PRN PRN Reason: Wound Care Diphenhydramine HCl (Diphenhydramine Hcl 12.5 Mg/5 Ml Liquid) 25 mg PO Q6H PRN PRN Reason: Hives Docusate Sodium (Docusate Sodium 100 Mg/10 Ml Liquid) 100 mg G-TUBE BEDTIME [facility] Last Admin: 11/13/23 21:11 Dose: 100 mg Documented By: PRIYANKA Enoxaparin Sodium (Enoxaparin Sodium 40 Mg/0.4 Ml Syringe) 40 mg SUBCUT Q24H [facility] Last Admin: 11/13/23 12:13 Dose: 40 mg Documented By: CORNELL Escitalopram Oxalate (Escitalopram Oxalate 10 Mg Tablet) 30 mg G-TUBE DAILY [facility] Last Admin: 11/14/23 07:29 Dose: 30 mg Documented By: JOHANNA Furosemide (Furosemide 40 Mg/4 Ml Solution) 40 mg PO DAILY [facility]; Protocol Last Admin: 11/14/23 07:28 Dose: 40 mg Documented By: JOHANNA Guaifenesin/Dextromethorphan (Guaifenesin Dm 100/10/5 Ml 5 Ml Syrup) 10 ml G- TUBE Q6H PRN PRN Reason: Cough Lactated Ringer's (Lr) 1,000 mls @ 80 mls/hr IVCONT .[id number] [facility] Last Admin: 11/14/23 00:35 Dose: 80 mls/hr Documented By: ANTPHILIP Ampicillin Sodium/Sulbactam (Sodium 3 gm/ Sodium Chloride) 100 mls @ 200 mls/hr IV Q6H [facility] Last Infusion: 11/14/23 06:04 Dose: Infused Documented By: HUMBLE Loratadine (Loratadine 10 Mg Tablet) 10 mg G-TUBE DAILY [facility] Last Admin: 11/14/23 07:29 Dose: 10 mg Documented By: JOHANNA Nystatin (Nystatin Powder 15 Gm Bottle) 1 appl TOPICAL BID [facility]; Protocol Last Admin: 11/14/23 07:31 Dose: 1 appl Documented By: JOHANNA Olanzapine (Olanzapine 10 Mg Tablet) 10 mg G-TUBE DAILY [facility] Last Admin: 11/14/23 07:29 Dose: 10 mg Documented By: JOHANNA Olanzapine (Olanzapine 10 Mg Tablet) 20 mg G-TUBE BEDTIME [facility] Last Admin: 11/13/23 21:11 Dose: 20 mg Documented By: PRIYANKA Polyethylene Glycol (Polyethylene Glycol 3350 17 Gm Powd.Pack) 17 gm G-TUBE BID [facility] Last Admin: 11/14/23 07:28 Dose: 17 gm Documented By: JOHANNA Simethicone (Simethicone 40 Mg/0.6 Ml Oral.Susp) 40 mg G-TUBE TID@0800,1600,1999 [facility] Last Admin: 11/14/23 07:29 Dose: 40 mg Documented By: JOHANNA Sodium Chloride (0.9 % Sodium Chloride Flush 3 Ml Syringe) 3 ml IVFLUSH QSHIFT [facility] Last Admin: 11/14/23 07:29 Dose: Not Given Documented By: JOHANNA Non-Admin Reason: IV Running Valproic Acid (Valproic Acid (As Sodium Salt) 250 Mg/5 Ml Solution) 1,000 mg G- TUBE BID@0800,1999 [facility] Last Admin: 11/14/23 07:28 Dose: 1,000 mg Documented By: JOHANNA Labs 11/14/23 05:30 11/14/23 05:30 Labs: Laboratory Results - last 24 hr 11/13/23 11/13/23 11/14/23 11:50 15:43 05:30 MCV 96.7 MCH 32.5 MCHC 33.6 RDW 15.0 Plt Count 132 L MPV 11.0 Immature Gran % (Auto) 0.3 Neut % (Auto) 77.2 H Lymph % (Auto) 16.4 L Rich % (Auto) 5.8 Eos % (Auto) 0.0 Baso % (Auto) 0.3 Lymph # (Auto) 1.6 Rich # (Auto) 0.6 Eos # (Auto) 0.0 Baso # (Auto) 0.0 Abs Immat Gran (auto) 0.03 Absolute Neuts (auto) 7.5 Absolute Nucleated RBC 0.000 Nucleated RBC % (auto) 0.0 VBG pH 7.39 VBG pCO2 55 VBG pO2 63 VBG HCO3 34 H VBG O2 Saturation 90.0 VBG Base Excess 8.1 Anion Gap 11 L Estim Creat Clear Calc 68.8 Estimated GFR > 60 Random Glucose 90 Calcium 9.0 D Magnesium 1.8 Procalcitonin 0.38 Urine Color Yellow Urine Appearance Clear Urine pH 7.[address] 1.020 Urine Protein Trace Urine Glucose (UA) Negative Urine Ketones Negative Urine Blood Negative Urine Nitrite Negative Ur Leukocyte Esterase Small (1+) H Urine RBC 0-2 Urine WBC 11-20 H Ur Squamous Epith Cells 0-2 Urine Bacteria 1+ Hyaline Casts 0-2 Assessment and Plan (1) Community acquired pneumonia: Status: Acute Plan d2 68yo M resident of [facility] with autism, intellectual disability, OCD, bipolar disorder, seizure disorder, dysphagia, HTN, hep B carrier, chronic constipation, nephrogenic DI, pica, chronic anemia, CKD3, GERD, recurrent aspiration PNA with PEG in place admitted for aspiration PNA after episode of vomiting after Covid vaccination aspiration PNA - not septic or hypoxic; ampicillin-sulbactam 11/12-, follow BCx, trend PCT hypovolemia - resolved seizure disorder bipolar disorder - continue valproate; recheck level in AM; may have missed 1-2 doses - continue citalopram, olanzapine GERD - cotinue PPI BPH - continue tamsulosin + finasteride VTE ppx - enoxaparin dispo - eventual return to [facility] In my clinical judgment, the patient requires continued inpatient hospitalization for the following reasons: IV ABX Total time managing care of this patient today: 40 minutes. Quality Stroke Does the patient have a stroke diagnosis?: No VTE Prior VTE?: No VTE Risk Level:: Medical - moderate - high VTE Device Contraindication: Treatment Not Indicated VTE Drug Contraindication: N/A - Med Ordered
[2023-11-14 10:46] VITALS: BMI 26.7
[2023-11-14] MEDS: Enoxaparin Sodium 40 MG/0.4 ML SYRINGE SUBCUT (12:55)
[2023-11-14] MEDS: Acetaminophen 325 MG TABLET 650 MG G-TUBE (12:55)
[2023-11-14 15:21] VITALS: BP 147/76; PULSE 92; RESP 24; TEMP 36.6; O2SAT 92
[2023-11-14 19:34] VITALS: BP 140/69; PULSE 88; RESP 14; TEMP 36.6; O2SAT 94
[2023-11-14] MEDS: Docusate Sodium 100 MG/10 ML LIQUID G-TUBE (20:06)
[2023-11-14] MEDS: OLANZapine 10 MG TABLET 20 MG G-TUBE (20:11)
[2023-11-15] MEDS: Ampicillin Sodium/Sulbactam Na 3 GM in 0.9 % Sodium Chloride 100 ML IV ×2 (00:05→06:20)
[2023-11-15] MEDS: 0.9 % Sodium Chloride Flush 3 ML SYRINGE IVFLUSH (00:05)
[2023-11-15] MEDS: Lactated Ringers 1,000 ML 80 ML IVCONT (02:31)
[2023-11-15 02:44] VITALS: BP 130/74; PULSE 94; RESP 14; TEMP 36.8; O2SAT 92
[2023-11-15 07:20] LABS: Hemoglobin 11.1 g/dl (14.0-18.0); Mean Corpuscular HGB Conc 33.6 g/dl (31.0-36.0); Mean Corpuscular Hemoglobin 32.4 pg (27.0-33.0); Mean Corpuscular Volume 96.2 fL (80.0-98.0); Mean Platelet Volume 10.9 fL (9.4-12.4); Platelet Count 140 X10*3/uL (160-400); Red Blood Count 3.43 X10*6/uL (4.60-5.80); Red Cell Distribution Width 14.7 % (11.0-16.0); White Blood Count 8.9 X10*3/uL (4.8-10.8)
[2023-11-15 07:29] VITALS: BP 123/67; PULSE 90; RESP 16; TEMP 36.2; O2SAT 94
[2023-11-15 08:03] LABS: Anion Gap 12 (12-20); Blood Urea Nitrogen 17 mg/dL (9-16); Calcium 9.5 mg/dL (8.4-10.2); Carbon Dioxide 28 mmol/L (22-29); Chloride 107 mmol/L (96-108); Creatinine Clr Calc Pharmacy 71.3; Estimated Glomerular Filt Rate > 60; Glucose Random 93 mg/dL (60-115); Potassium 3.3 mmol/L (3.3-5.1); Sodium 144 mmol/L (135-145)
[2023-11-15 08:05] LABS: Valproate 50.2 mcg/mL (50.0-100.0)
[2023-11-15 08:11] VITALS: BP 123/67
[2023-11-15] MEDS: Escitalopram Oxalate 10 MG TABLET 30 MG G-TUBE (08:11)
[2023-11-15] MEDS: Furosemide 40 MG/4 ML SOLUTION PO (08:11)
[2023-11-15] MEDS: polyethylene glycoL 3350 17 GM POWD.PACK G-TUBE (08:11)
[2023-11-15] MEDS: OLANZapine 10 MG TABLET G-TUBE (08:12)
[2023-11-15] MEDS: Loratadine 10 MG TABLET G-TUBE (08:12)
[2023-11-15] MEDS: Simethicone 40 MG/0.6 ML ORAL.SUSP G-TUBE ×2 (08:13→16:02)
--- NOTE | 2023-11-15 10:31 | MHC.CLN ---
F/U PT DEPENDENT ON TF FOR NUTRITION SUPPORT. TOLERATING JEVITY 1.0 AT MAX GOAL RATE: MAX GOAL RATE JEVITY 1.0 AT 70ML/HR WITH 240ML FREE WATER FLUSHES Q 8 HRS. PROVIDES 1781KCALS (25KCALS/KG), 74G PROTEIN (1.06G/KG), 2123ML TOTAL WATER FROM FORMULA AND FLUSHES (30ML/KG) MONITOR TOLERANCE AND LYTES.
--- NOTE | 2023-11-15 11:05 | PM.DS ---
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 Per [facility] staff at bedside, patient received the COVID 19 booster last night and subsequently developed low grade fever and vomited (nonbloody) last night. Apparently had similar reaction in past to the vaccine. He presented to the ED last night and was ultimately dischaged back home. This morning, was unwell appearing, lethargic, and febrile. He is unable to issue complaints but was apparently moaning and was flushed. On arrival, low grade fever of 100.3, with intermittent hypotension this morning to 83/50. Last night had leukocytosis 12.6, but no leukocytosis this morning. Apparently on arrival was hypoxic in the 80s and placed on 2L supplemental O2 now maintaining oximetry 98%. Creatinine slightly bumped from baseline at 1.13, baseline around 0.9, BUN 31. CO2 32. Lactic acid 1.6. Ammonia level 29, valproic acid level subtherapeutic at 17.3. CXR shows right lower lobe infiltrate. Negative for COVID-19. In the ED, has received ceftriaxone, doxycycline, IV Tylenol and ketorolac. He is also on his 2 L of IV NS. 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 He was not hypoxic nor septic. Hypotension was due to hypovolemic and resolved with fluid resuscitation. He was admitted to the medical-surgical unit and treated with IV ampicillin-sulbactam. He improved and was discharged on amoxicillin-clavulanate suspension to be given per G tube. Blood cultures negative. No medication changes were made. Valproate level was therapeutic. Time Attestation Discharge Coordination Time (in mins): 40 Quality: Safe Use of Opioids Does Pt have an Active Cancer Diagnosis on the Problem List?: No Quality: Stroke Does the patient have a stroke diagnosis?: No Physical Exam Vital Signs: Vital Signs: Last Vital Signs Temp 97.1 F 11/15/23 07:29 Pulse 90 11/15/23 07:29 Resp 16 11/15/23 07:29 BP 123/67 11/15/23 08:11 Pulse Ox 94 11/15/23 07:29 O2 Del Method Room Air 11/15/23 07:29 O2 Flow Rate 3 11/13/23 13:47 BMI result Body Mass Index 26.7 Gen: in no acute distress HEENT: sclera anicteric, moist mucus membranes Neck: supple Lungs: diminished at R base Heart: regular rate and rhythm, no murmurs Abd: soft, non-tender, non-distended, G tube in place with TFs at 70 mL/hr Ext: no edema Skin: warm/well-perfused Neuro: alert, nonverbal Psych: impaired insight DS: Data Data Completed and Pending Completed studies during hospitalization [Text1]: Laboratory Results WBC 8.9 X10*3/uL (4.8-10.8) 11/15/23 05:42 RBC 3.43 X10*6/uL (4.60-5.80) L 11/15/23 05:42 Hgb 11.1 g/dl (14.0-18.0) L 11/15/23 05:42 Hct 33.0 % (42.0-52.0) L 11/15/23 05:42 MCV 96.2 fL (80.0-98.0) 11/15/23 05:42 MCH 32.4 pg (27.0-33.0) 11/15/23 05:42 MCHC 33.6 g/dl (31.0-36.0) 11/15/23 05:42 RDW 14.7 % (11.0-16.0) 11/15/23 05:42 Plt Count 140 X10*3/uL (160-400) L 11/15/23 05:42 MPV 10.9 fL (9.4-12.4) 11/15/23 05:42 Immature Gran % (Auto) 0.3 % (0.0-0.4) 11/14/23 05:30 Neut % (Auto) 77.2 % (45-73) H 11/14/23 05:30 Lymph % (Auto) 16.4 % (20-40) L 11/14/23 05:30 Harding % (Auto) 5.8 % (2-11) 11/14/23 05:30 Eos % (Auto) 0.0 % (0-4) 11/14/23 05:30 Baso % (Auto) 0.3 % (0-2) 11/14/23 05:30 Lymph # (Auto) 1.6 X10*3/uL (1.2-4.9) 11/14/23 05:30 Harding # (Auto) 0.6 X10*3/uL (0.1-1.2) 11/14/23 05:30 Eos # (Auto) 0.0 X10*3/uL (0.0-0.4) 11/14/23 05:30 Baso # (Auto) 0.0 X10*3/uL (0.0-0.2) 11/14/23 05:30 Abs Immat Gran (auto) 0.03 X10*3/uL (0.00-0.03) 11/14/23 05:30 Absolute Neuts (auto) 7.5 x10*3/uL (2.0-8.3) 11/14/23 05:30 Absolute Nucleated RBC 0.000 X10*3/uL (0.0-0.012) 11/15/23 05:42 Nucleated RBC % (auto) 0.0 /100WBC (0.0-0.2) 11/15/23 05:42 VBG pH 7.39 (7.32-7.43) 11/13/23 11:50 VBG pCO2 55 mmHg 11/13/23 11:50 VBG pO2 63 mmHg 11/13/23 11:50 VBG HCO3 34 mmol/L (22-26) H 11/13/23 11:50 VBG O2 Saturation 90.0 % 11/13/23 11:50 VBG Base Excess 8.1 mmol/L 11/13/23 11:50 Sodium 144 mmol/L (135-145) 11/15/23 05:42 Potassium 3.3 mmol/L (3.3-5.1) 11/15/23 05:42 Chloride 107 mmol/L (96-108) 11/15/23 05:42 Carbon Dioxide 28 mmol/L (22-29) 11/15/23 05:42 Anion Gap 12 (12-20) 11/15/23 05:42 BUN 17 mg/dL (9-16) H 11/15/23 05:42 Creatinine 0.83 mg/dL (0.5-1.4) 11/15/23 05:42 Estim Creat Clear Calc 71.3 11/15/23 05:42 Estimated GFR > 60 11/15/23 05:42 Random Glucose 93 mg/dL (60-115) 11/15/23 05:42 Lactic Acid 1.6 mmol/L (0.5-2.0) 11/13/23 08:16 Calcium 9.5 mg/dL (8.4-10.2) 11/15/23 05:42 Magnesium 1.8 mg/dL (1.6-2.6) 11/14/23 05:30 Ammonia 29 umol/L (13-55) 11/13/23 08:58 Procalcitonin 0.38 ng/mL 11/14/23 05:30 Urine Color Yellow 11/13/23 15:43 Urine Appearance Clear 11/13/23 15:43 Urine pH 7.5 (5.0-9.0) 11/13/23 15:43 Ur Specific [place] 1.020 (1.005-1.025) 11/13/23 15:43 Urine Protein Trace mg/dL (Neg-Trace) 11/13/23 15:43 Urine Glucose (UA) Negative mg/dL (Negative) 11/13/23 15:43 Urine Ketones Negative mg/dL (Negative) 11/13/23 15:43 Urine Blood Negative (Negative) 11/13/23 15:43 Urine Nitrite Negative (Negative) 11/13/23 15:43 Ur Leukocyte Esterase Small (1+) (Negative) 11/13/23 15:43 Urine RBC 0-2 /HPF (0-2) 11/13/23 15:43 Urine WBC 11-20 /HPF (0-5) H 11/13/23 15:43 Ur Squamous Epith Cells 0-2 /HPF (0-2) 11/13/23 15:43 Urine Bacteria 1+ (None Seen) 11/13/23 15:43 Hyaline Casts 0-2 /LPF (0-2) 11/13/23 15:43 Valproic Acid 50.2 mcg/mL (50.0-100.0) 11/15/23 05:42 COVID-19 (SUNNI) Negative (Negative) 11/13/23 08:58 COVID-19 Clin Com See Note 11/13/23 08:58 Impressions Chest X-Ray 11/13/23 07:59 IMPRESSION: Right lower lobe infiltrate. Follow-up until resolution is advised. Electronically signed by: Justin Morales MD 11/13/2023 08:47 AM EDT Discharge Plan Discharge Anticipated Discharge Date/Time: 11/15/23 10:53 Patient Disposition: Xfer Other Discharge Diagnosis: aspiration pneumonia hypotension/dehydration Referrals: Tomy Rangel MD [Primary Care Provider] - 1 Week Discharge Medications: New amoxicillin-pot clavulanate 400-57 mg/5 mL Suspension For Reconstitution 11 ml G-tube BID Qty: 110 0RF Continued bacitracin zinc 500 unit/gram ointment 1 appl topical BID PRN (Reason: Wound Care) acetaminophen 325 mg tablet 650 mg feeding tube Q6H PRN (Reason: Pain) Qty: 60 0RF dextromethorphan-guaifenesin 10-100 mg/5 mL Liquid 10 ml feeding tube Q6H PRN (Reason: Cough) Qty: 500 0RF olanzapine 10 mg tablet 10 mg feeding tube DAILY Qty: 60 0RF simethicone [Gas Relief (simethicone)] 40 mg/0.6 mL drops,suspension 40 mg feeding tube TID@0800,1600,2000 Qty: 30 0RF polyethylene glycol 3350 17 gram/dose powder 17 g feeding tube BID Qty: 510 0RF Rx Instructions: hold if more than 3 BM's in 1 day olanzapine 20 mg tablet 20 mg feeding tube BEDTIME Qty: 30 0RF loratadine 10 mg tablet 10 mg feeding tube DAILY Qty: 60 0RF omeprazole 20 mg capsule,delayed release(DR/EC) 40 mg feeding tube DAILY@0630 Rx Instructions: needs to be given with water juice or snack docusate sodium 60 mg/15 mL syrup 100 mg feeding tube BEDTIME valproic acid (as sodium salt) 250 mg/5 mL solution 1,000 mg feeding tube BID@0800,2000 citalopram 40 mg tablet 40 mg feeding tube DAILY Rx Instructions: Give along with 20 mg. For total dose =60 mg citalopram 20 mg tablet 20 mg feeding tube DAILY Rx Instructions: Give along with 40 mg For a total dose=60 mg finasteride 5 mg tablet 5 mg feeding tube DAILY furosemide 40 mg/4 mL Solution 40 mg PO QAM Desitin 40 % Paste 1 appl TOPICAL QID PRN (Reason: rash ) Rx Instructions: Apply to affected areas on perianal, thighs and groin diphenhydramine HCl 12.5 mg/5 mL Liquid 25 mg PO Q6H PRN (Reason: Hives) nystatin 100,000 unit/gram powder 1 appl topical BID Rx Instructions: To groin and buttocks (DME) #18 MACKENZIE gastrostomy feeding #18 Dominican See Rx Instructions .Route .MEDSUPPLY Qty: 1 0RF Rx Instructions: Every 6 months Discharge Orders: Discharge Order (Routine); Ordered 11/15/23 Ordered By: Archie Masters Diet: Advance to usual diet Activity on Discharge: As tolerated Stand Alone Forms: Patient Portal Discharge page Print Language: Kittitian Care Plan Goals: recovery from pneumonia Health Concerns: aspiration pneumonia hypotension/dehydration Plan of Treatment: amoxicillin-clavulanate 875-125 mg twice daily for 5 days resume all prior medications and tube feeds without any changes Please follow up with your primary care doctor within 1 week. Return to the hospital if you experience recurrent or worsening symptoms. Assessment: See Discharge Summary.
--- NOTE | 2023-11-15 11:23 | MHC.CM.PN ---
DP: PT HAS BEEN MEDICALLY CLEARED FOR DC BACK TO [facility]. MED REC FORM FILLED OUT BY PROVIDER AND CM RETURNED TO [facility] STAFF. BLS TRANSPORT BOOKED FOR 3 PM VIA [facility]. [facility] MADE AWARE.
[2023-11-15] MEDS: Enoxaparin Sodium 40 MG/0.4 ML SYRINGE SUBCUT (12:19)
[2023-11-15] MEDS: Nystatin Powder 15 GM BOTTLE 1 APPL TOPICAL (12:30)
[2023-11-15] MEDS: Amoxicillin/Potassium Clav 4,000 MG/50 ML SUSP.RECON 875 MG G-TUBE (12:54)
[2023-11-15 15:08] VITALS: BP 127/65; PULSE 85; RESP 20; TEMP 36.2; O2SAT 96
== END 2023-11-15 17:04 | disposition other institution (70) | DRG 177 ==
LOC: HO.ED 09:28 → HO.EDOVER 12:08 → HO.S3 19:27
PROVIDERS: Admitting Provider Physician Assistant; Emergency Provider Student in an Organized Health Care Education/Training Program; PCP Internal Medicine; Visit Provider Family Medicine
DX: J69.0 Pneumonitis due to inhalation of food and vomit (principal); J96.01 Acute respiratory failure with hypoxia; F84.0 Autistic disorder; N25.1 Nephrogenic diabetes insipidus; I95.9 Hypotension, unspecified; N40.0 Benign prostatic hyperplasia without lower urinary tract symptoms; F31.9 Bipolar disorder, unspecified; K59.09 Other constipation; K21.9 Gastro-esophageal reflux disease without esophagitis; G40.909 Epilepsy, unspecified, not intractable, without status epilepticus; E86.1 Hypovolemia; T42.6X6A Underdosing of other antiepileptic and sedative-hypnotic drugs, initial encounter; D63.1 Anemia in chronic kidney disease; Z20.822 Contact with and (suspected) exposure to COVID-19; Z93.1 Gastrostomy status; Z79.899 Other long term (current) drug therapy
CPT/HCPCS: 36415; 71045; 71046; 80048; 80076; 80164; 81001; 82140; 82803; 83605; 83690; 83735; 84145; 85025; 85027; 87040; 87086; 87088; 87186; 87635; 93005; 99283; 99285; J0131; J0295; J0696; J1650; J1885; J7120

== ENCOUNTER → 2023-11-13 11:56 | Outpatient (BNV) | payer MEDICARE, MEDICAID, SELFPAY | PROVIDERS: Admitting Provider Physician Assistant; Emergency Provider Student in an Organized Health Care Education/Training Program; PCP Internal Medicine; Visit Provider Physician Assistant | DX: J69.0 Pneumonitis due to inhalation of food and vomit (principal); I95.9 Hypotension, unspecified | CPT/HCPCS: 99223; 99232; 99239 ==

== ENCOUNTER 2023-12-25 10:57 | Outpatient (AMB) | payer MEDICARE, MEDICAID, SELFPAY ==
--- NOTE | 2023-12-25 10:59 | A.OFFVIS_ITS ---
Intake Visit Reasons: 6m follow up Intake Note: Patient is present for 6M F/U Urology Medication:FINASTERIDE,FUROSEMIDE Antibiotic Allergy:NONE Blood Thinner:NONE Threat Analyst Required: No Allergies haloperidol [From HALDOL] Adverse Reaction (Unknown, Verified 12/25/23 11:01) UNKNOWN metoclopramide [From REGLAN] Adverse Reaction (Unknown, Verified 12/25/23 11:01) UNKNOWN HPI Comments Details: Mingo is a nonverbal? resident of a group house with developmental delay. They are a patient of Dr.? Rangel. They are seen in the office today for the following urologic conditions - nocturia - bladder outlet obstruction - hydrocele Six-month follow up Has good emptying Incontinence with barrier protection Doing well after left hydrocelectomy Maintain yearly follow-up Sister Sherry who is his healthcare proxy [phone] Bladder outlet obstruction Has done well with combination therapy ?On exam has large left hydrocele ?Recommendation for hydrocelectomy ?Discussed with case work. ? Current visit is for?initial symptom evaluation of, lower urinary tract symptoms, predominate irritative symptoms.? - G tube placement for feeding ? Current treatment includes finasteride - previously had been on doxazosin and tamsulosin but had blood pressure issues ? Symptoms include?incomplete emptying, nocturia (>2), and are progressing.? Treatment plan?- maintain finasteride [facility] Medical History Pica Seizures BPH (benign prostatic hyperplasia) Dysphagia Pneumonia Mentally challenged Developmental non-verbal disorder Autism Severe sepsis Hydrocele Chronic renal disease Hyperlipemia Anemia Hypertension Hiatal hernia GERD (gastroesophageal reflux disease) OCD (obsessive compulsive disorder) Bipolar 1 disorder Surgical History History of colectomy H/O exploratory laparotomy Social History Household Members: Other Household Members Other:: alf, [facility] Housing: Other Housing Other:: [facility] Do you presently have visiting nurse or other home services: Yes Unable to assess alcohol history related to: Unknown Alcohol intake: never Comment: [facility] caregiver at bedside Patient Tobacco Use Status: Never used Tobacco Advance Directives Date on File: 12/24/21 service: No Current occupational status: disabled Review of Systems Const Denies chills and Denies fever(s) Card Reports no additional complaints and Denies syncope Resp Denies cough GI Denies abdominal pain and Denies heartburn Reports as per HPI and Denies change in libido Neuro Denies syncope Psych Denies change in libido Endo Denies change in libido Physical Exam Const General: cooperative, healthy appearing, comfortable and no acute distress Orientation/consciousness: patient oriented x3 HEENT Face and sinus: Yes normal facial exam Mouth: moist mucous membranes Neck Neck: Yes normal visual inspection, Yes full ROM and Yes trachea midline Chest Chest palpation & inspection: normal inspection of the chest Resp Effort & Inspection: normal respiratory effort, able to speak in complete sentences and no respiratory distress GI Inspection: Yes normal to inspection Back/Spine/Pelvis Cervical Spine: normal cervical lordosis Thoracic/Lumbar Spine: thoracic and lumbar spine normal to inspection Skin General skin exam: no rashes or lesions noted Neuro General: patient oriented x3, gait normal, tone normal and moves all extremities Extrem General: Yes normal to inspection and Yes capillary refill normal Assessment & Plan Assessment & Plan (1) Bladder outlet obstruction: Code(s): N32.0 - Bladder-neck obstruction Category: Medical Plan Twelve month follow-up Medications: Changed From finasteride 5 mg feeding tube DAILY N32.0 - Bladder-neck obstruction To finasteride 5 mg feeding tube DAILY 90 tabs 3RF 90 days N32.0 - Bladder-neck obstruction Patient Instructions: Imaging studies, laboratory and physical exam results were discussed and reviewed in detail. No major barriers to patient understanding were identified. An opportunity to ask questions regarding the treatment plan was provided. All questions were answered. The patient expressed understanding and agreement with the above treatment plan. The patient is aware they should contact our office by phone for worsening of their current condition or the appearance of new urologic symptoms. Compliance is encouraged with any medications and followup testing that is ordered. It is a privilege to participate in the urologic care of your patient. If you have any questions or concerns regarding treatment for the above conditions, or other urologic issues, please do not hesitate to contact me. The office telephone contact is [phone]. This note is constructed using voice recognition software. While every effort has been made to ensure accuracy engineering mechanic errors may have been included. Yours sincerely, Dr Tunde Tolliver MD, [facility] - Urology Providers of Expert, Compassionate Care for the Genitourinary System Coding Level of Care Code Est Pt Level 3 (79387) Diagnoses Bladder outlet obstruction N32.0
== END 2023-12-25 11:30 | disposition home or self-care (01) ==
LOC: HO.HUSH 10:57
PROVIDERS: PCP Internal Medicine; Visit Provider Urology
DX: N32.0 Bladder-neck obstruction (principal)
CPT/HCPCS: 99213

== ENCOUNTER → 2023-12-25 10:57 | Outpatient (BNVA) | payer MEDICARE, MEDICAID, SELFPAY | PROVIDERS: PCP Internal Medicine; Visit Provider Urology | DX: N32.0 Bladder-neck obstruction (principal); R35.1 Nocturia; Z96.89 Presence of other specified functional implants | CPT/HCPCS: 99212 ==

== ENCOUNTER 2024-08-30 19:27 | Inpatient (IN) | payer MEDICARE, MEDICAID, SELFPAY ==
--- NOTE | ~2024-08-30 | XR_ITS ---
CLINICAL HISTORY: dyspnea, ?pulm edema 1 view chest x-ray Comparison: CT/REG/SR - CT CHEST W IV CON - 08/30/24 21:42 EDT Findings: The lungs are underexpanded with interstitial prominence. Cardiac and mediastinal contours are stable. No acute fracture. IMPRESSION: Similar to prior, there is interstitial prominence. Mild vascular congestion possible. This document has been electronically signed by: Hari Reyes MD on 08/31/2024 05:21:34
--- NOTE | ~2024-08-30 | CT_ITS ---
CLINICAL HISTORY: sbo, cannot tolerate PO intake CT Abdomen and Pelvis W Contrast COMPARISON: CT/AK/SR - CT ABDOMEN PELVIS W IV CON - 07/08/23 13:44 EDT FINDINGS: Detail limited by artifacts. Normal liver. Normal spleen. Normal kidneys. Normal adrenal glands. Normal pancreas. No visible cholelithiasis. No biliary dilation. Percutaneous gastrostomy tube in the stomach. Status post at least partial colectomy. Mild thickening of the wang of the rectum. No pneumatosis. Large bowel gas. Dilated bowel measuring up to 7.9 cm in diameter with transition point in the central abdomen just proximal to a surgical anastomosis. The appendix is not identified and may be surgically absent. Unremarkable bladder. No ascites. No pneumoperitoneum. No lymphadenopathy. No acute fracture. No abdominal aortic aneurysm. IMPRESSION: Findings consistent with bowel obstruction with transition point in the central abdomen proximal to a surgical anastomosis. Thickening of the wang of the rectum, which could be due to proctitis or vascular congestion. See separate CT Chest report. This document has been electronically signed by: Alexis Andrade MD on 08/30/2024 23:47:25
--- NOTE | ~2024-08-30 | XR_ITS ---
CLINICAL HISTORY: aspiration Chest X-ray, 1 View COMPARISON: CR/MD/SR - XR CHEST 1V - 11/12/23 20:44 EDT FINDINGS: The lung apices are partially obscured. No consolidation. No pleural effusion. No pneumothorax. No cardiomegaly. No acute fracture. [id number] bowel gas in the visible upper abdomen. IMPRESSION: No acute findings. This document has been electronically signed by: Alexis Andrade MD on 08/30/2024 21:17:20
--- NOTE | ~2024-08-30 | CT_ITS ---
CLINICAL HISTORY: PNA CT Chest W Contrast COMPARISON: CR - XR CHEST 1V - 08/30/24 20:29 EDT FINDINGS: Detail limited by artifacts. Diffuse patchy and confluences infiltrates in both lungs most pronounced in the bilateral lower lobes where there are small areas of consolidation. No pleural effusion. No pneumothorax. No cardiomegaly. No pericardial effusion. Prominent mediastinal and bilateral hilar lymph nodes. No thoracic aortic aneurysm. No acute fracture. Degenerative changes in the spine. Small hiatal hernia. IMPRESSION: Bilateral pulmonary infiltrates with areas of consolidation. Reactive lymph nodes. Nonemergent/incidental findings above. See separate CT Abdomen/Pelvis report. This document has been electronically signed by: Alexis Andrade MD on 08/30/2024 23:24:28
[2024-08-30 19:33] VITALS: BP 130/70; PULSE 103; O2SAT 94
[2024-08-30 19:39] VITALS: BP 118/72; PULSE 104; RESP 30; TEMP 36.9; O2SAT 95
[2024-08-30 20:25] LABS: Venous Blood Gas Refer to POC result
[2024-08-30 20:26] LABS: VBG HCO3 32 mmol/L (22-26); VBG O2 % Saturation 98.0 %
[2024-08-30 20:31] LABS: Hematocrit 38.5 % (42.0-52.0); Hemoglobin 13.6 g/dl (14.0-18.0); Imm Gran Abs Auto 0.07 X10*3/uL (0.00-0.03); Imm Gran Pct Auto 0.7 % (0.0-0.4); Lymphocytes Absolute Auto 0.8 X10*3/uL (1.2-4.9); MANUAL DIFF FLAG SCAN; Mean Corpuscular HGB Conc 35.3 g/dl (31.0-36.0); Mean Corpuscular Hemoglobin 33.4 pg (27.0-33.0); Mean Corpuscular Volume 94.6 fL (80.0-98.0); NRBC Abs Auto 0.000 X10*3/uL (0.0-0.012); NRBC Pct Auto 0.0 /100WBC (0.0-0.2); PLT CLUMP 1; Red Blood Count 4.07 X10*6/uL (4.60-5.80); SCAN SMEAR FLAG 1
[2024-08-30 20:32] LABS: White Blood Count 10.0 X10*3/uL (4.8-10.8)
--- OUTSIDE RECORDS SUMMARY | 2024-08-30 20:36 | XMS_ITS | Data Portability ---
Author Organization [place] [facility] Address [address] [place] [id number] Care Team Providers Care Barrel Tester Name Role Phone ROXANNA ZIMMERMAN Primary Care Provider Assessment Encounter Date Assessment Date Assessment LastModified by Organization Details LastModified Time 12/05/2020 12/05/2020 Overview/History : 65 y/o non-verbal M with PMHx sig for recurrent aspiration PNA, bipolar disorder, seizure disorder, OCD, pica, hiatal hernia, dysphagia, and nephrogenic DI, new to , who presents w/ [facility] staff concerns for possible PNA. HPI obtained from [facility] staff who report patient has been coughing/gagging for 2-3 days, and this morning was very shaky due to generalized weakness, pushing his belly in and out and walking with unsteady gait. They are most concerned about possible recurrent aspiration PNA but deny any witnessed episodes of aspiration over the past 2 weeks. Good PO intake, no vomiting, normal BMs. No sick contacts and is vaccinated for COVID. Exam: afebrile, RRR, normotensive, normal resps, O2 sat 92% however patient uncooperative with exam and holding breath while taking vitals, non-toxic, well appearing. GENERAL: well developed, well nourished, appears stated age, sitting comfortably in wheelchair in no acute distress. HEENT: normocephalic, atraumatic, PERRL, EOMI, sclera anicteric, nares patent, septum midline, mmm, edentulous, no lesions in the oropharynx. NECK: trachea midline, no masses, cervical lymphadenopathy, or thyromegaly. RESP: uncooperative with exam, holding breath, noted to have a congested cough, breathing non-labored, no accessory muscle use, clear to auscultation bilaterally, no wheezes, rhonchi, or rales. CARDIO: RRR, distant S1, S2, no murmurs, rubs, or gallops, radial pulse 2+ on the left. ABD: soft, non-tender, non-distended, normoactive BS x4, no masses or HSM. EXTREMITIES: warm, well perfused, bilateral calves soft, nontender, no palpable cord, no cyanosis, swelling or rashes. NEURO: awake, alert, non-verbal, unable to follow commands, occasionally yelling excitably and making eye contact, no focal neuro deficits, moving all extremities spontaneously. DDx considered, but not limited to: PNA - possible given h/o recurrent aspiration but afebrile and uncooperative with exam CHF - unlikely, no rales, tachypnea, or RADHA COVID - less likely, afebrile, vaccinated, no sick contacts URI - unlikely, afebrile, benign exam PE - less likely, no resp distress, no tachypnea, no tachycardia or hypotension, no reports of hemoptysis pneumo - unlikely, no absent BS Work up/Results: CXR and COVID PCR pending. Plan/Discussion: -clinically stable at this time, but difficult exam due to uncooperative non-verbal patient -will check CXR and COVID PCR -if CXR positive will send Rx for abx at that time -f/u with PCP in 3-5 days -strict ER precautions given Thank you for your visit with [facility] today. We cannot always find the exact cause of your symptoms during your initial visit. Please follow up with your primary care provider or specialist to be rechecked or seek medical attention if your symptoms do not go away or get worse. If you develop any new or worsening symptoms and need after hours care, please go to nearest ER and/or call 911. If you have additional concerns or develop a change in your condition between 8am-10pm, please call [facility] at [phone] to help navigate your care. In order to obtain further information and compare any laboratory results/values, I have accessed patient records on the [employer]. This information was pertinent in my medical decision making today. Time On Scene with Patient: 00:29:26 param Not available 12/05/2020 17:17:17 Plan of Treatment Reminders Order Date Submit Date Provider Last Modified By Organization Details Last Modified Time Details Appointments None recorded. Lab unlisted lab - sars-cov-2 virus PCR (covid-19) 2020 [facility], [address] [place] [address], [address], 09:03:57 Referral None recorded. Procedures None recorded. Surgeries None recorded. Imaging XR, chest, 2 view 2020 [email or web address] [facility] ([facility] [employer]), [address] [place], [address], 10:38:49 Medication Orders Augmentin 875 mg-125 mg tablet 2020 [facility], [address] [place] [address], [address], 09:03:25 Patient TargetsNo targets recorded. Patient InstructionsNo instructions recorded. Reason for Referral None Reported. Results Created Date Observation Date Name Description Value Unit Range Abnormal Flag Note LastModifiedBy Organization Detail LastModifiedTime 12/08/19 XR, chest , 2 view No observ ation record ed. [email or web address] [facility] [email or web address]) [address] [facility], [place], [address], 12/08/2020 09:11:29 Result Notes None recorded. Problems Name Problem SNOMED Code Status Onset Date Resolution Date Notes Provider Name and Address Organization Details Recorded Time Bipolar disorder 71996743 Active OFELIA [address] [address] [place], [address], [place] - [facility] 15:21:07 Problem Notes None recorded. Medical Equipment None Reported. Allergies Allergen ID Allergen Name Allergen Category Reaction Reaction Severity Criticality Documentation Date Start Date Code Code System Note Provider Name and Address Organization Details Recorded Time 983285 Reglan medicatio n Not available Not available Not available 12/05/2020 9230 RxNorm OFEL[place] [address] [place], [address], [place] [facility] 15:20:55 [id number] Haldol medicatio n Not available Not available Not available 12/05/2020 04348 9 Rx[facility] OFEL[place] [address] [place], [address], [place] [facility] 15:21:00 Medications Name Sig Start Date Stop Date Status Note LastModified by Organization Details LastModified Time kesha strong gas relief dr active Not Available Not Availabl e Not Available acetaminophen 325 mg tablet active Not Available Not Availabl e Not Available citalopram 40 mg tablet active Not Available Not Available No t Available Milk of Magnesia 400 mg/5 mL oral suspension active Not Available Not Available N ot Available olanzapine 10 mg tablet active Not Available Not Available No t Available bacitracin zinc 500 unit/gram topical ointment active Not Available Not Available Not Available citalopram 20 mg tablet active Not Available Not Available No t Available doxazosin 8 mg tablet active Not Available Not Available No t Available valproic acid (as sodium salt) 250 mg/5 mL oral solution active Not Available Not Available Not Available docusate sodium 100 mg capsule active Not Available Not Available Not Available omeprazole 20 mg capsule,delay ed release active Not Available Not Available N ot Available doxycycline hyclate 100 mg tablet active Not Available Not Available No t Available olanzapine 20 mg tablet active Not Available Not Available No t Available finasteride 5 mg tablet active Not Available Not Available No t Available loratadine 10 mg tablet active Not Available Not Available No t Available amoxicillin 875 mg-potassium clavulanate 125 mg tablet Take 1 tablet every 12 hours by oral route for 7 days. active Not Available Not Available No t Available Infants Simethicone 40 mg/0.6 mL oral drops,suspens ion active Not Available Not Available Not Available Acid Gone Antacid 95 mg-358 mg/15 mL oral suspension active Not Available Not Available N ot Available Tussin DM active Not Available Not Valentina ilable Not Available Amitiza 24 mcg capsule 12/05 completed Not Available Not Available Not Available Vitals Date Recorded Body temperature Oxygen saturation Oxygen saturation in Arterial blood by Pulse oximetry Heart rate Respiratory rate Systolic And Diastolic Provider Name and Address Organization Details Last Updated DateTime 96.3 [degF] 92 % 92 % 74 /min 18 /min 102/52 mm[Hg] Not Available [facility] 15:38:56 Social History Question Answer Notes LastModified by [employer] Details LastModified Time Tobacco Smoking Status Never Smoker OFELIA SOLIZ [address], [place], [address], [place] [facility] 12/05/2020 15:27:27 Do You Have An Advance Directive? Yes [employer] Information not available 12/05/2020 What Is Your Code Status? Full Code [employer] Information not available 12/05/2020 Within The Past 12 Months, Has It Happened That The Food You Bought Just Didn't Last And You Didn't Have Money To Get More. No [employer] Information not available 12/05/2020 Within The Past 12 Months, Have You Worried That Your Food Would Run Out Before You Got Money To Buy More. No [employer] Information not available 12/05/2020 Fall Risk: Do You Feel Unsteady When Standing Or Walking? Yes [employer] Information not available 12/05/2020 We Know That How And When People Interact With Friends And Family Can Be Very Different From Person To Person. How Often Do You Have The Opportunity To See Or Talk To People That You Care About And Feel Close To? (Ex: Talking To Friends On The Phone Or Visiting Friends Or Family Or Going To Latter-Day Or Club Meetings) 5 Or More Times Per Week [employer] Information not available 12/05/2020 Excessive Alcohol Or Drug Use No [employer] Information not available 12/05/2020 Does This Patient Have A PCP? Yes [employer] Information not available 12/05/2020 We Know From Many Of Our Patients That Covering All Of Their Costs Can Be Difficult At Times. This Can Cause Stress And Impact Health. In The Past Year, Have You Been Unable To Get Any Of The Following When It Was Really Needed? No [employer] Information not available 12/05/2020 What Is Your Housing Situation Today? I Have Housing [employer] Acquisition [employer] Information not available 12/05/2020 Would You Like Help Connecting To Resources? None [employer] Information not available 12/05/2020 Sex: Unknown Functional Status Question Answer Note LastModified by Organizat ion Details LastModified Time Do you use any illicit or recreational drugs? No [employer] Information not available 12/05/2020 What is your level of alcohol consumption? None [employer] Information not available 12/05/2020 Mental Status None recorded. Family History Nothing Reported Notes:pt non-verbal unable t o reports family hx Medical History Condition Response Diabetes N Coronary Artery Disease N CHF N Parkinson's Disease N Cancer N Dementia N Stroke N COPD N Depression N Hypothyroidism N Asthma N High Cholesterol Y Rheumatoid Arthritis N Pulmonary Embolism N Hypertension Y A-fib N Osteoporosis N Kidney Disease Y Past Encounters Encounter ID Performer Location Encounter Start Date Encounter Closed Date Diagnosis/Indication Diagnosis SNOMED-CT Code Diagnosis ICD10 Code Diagnosis Note [id number] OFELIA SOLIZ [facility] [address] [place] [address] 12/05/2020 15:18:01 12/12/2020 16:40:49 Cough 83930231 R05.9 Aspiration pneumonia 422 487038 J69.0 Health Concerns Section Related Observation LastModified by Organization Detai ls LastModified Time None Recorded Concern Status LastModified by Organization Details LastModified Time None Recorded Advance Directives Directive Y: Payers Insurance Date Sequence Insurance Name Policy Number Policy Ibarra Covered Member ID Ibarra Member ID Guarantor Name 12/09/2020 1 *SELF PAY* Mingo Henriquez [id number] Mingo Henriquez 12/09/2020 2 [place] [facility] Mingo Henriquez [id number] Mingo Henriquez 12/16/2020 1 MEDICARE B-[place]: [facility] [employer] Mingo Henriquez [id number] Mingo Henriquez Notes Date Note Type Note Provider Name and Address Organization Details Recorded Time 12/05/2020 text/html 65 y/o non-verba l M with PMHx sig for recurrent aspiration PNA, bipolar disorder, seizure disorder, OCD, pica, hiatal hernia, dysphagia, and nephrogenic DI, new to , who presents w/ [facility] staff concerns for possible PNA. HPI obtained from [facility] staff who report patient has been coughing/gagging for 2-3 days, and this morning was very shaky due to generalized weakness, pushing his belly in and out and walking with unsteady gait. They are most concerned about possible recurrent aspiration PNA but deny any witnessed episodes of aspiration over the past 2 weeks. Good PO intake, no vomiting, normal BMs. No sick contacts and is vaccinated for COVID. OFELIA SOLIZ [address] [place], [address], [place] - [facility] 12/08/2020 09:03:28
[2024-08-30 20:40] LABS: Alanine Aminotransferase 34 U/L (0-40); Albumin Level 3.3 g/dL (3.5-5.0); Alkaline Phosphatase 102 U/L (39-117); Anion Gap 20 (12-20); Aspartate Amino Transferase 83 U/L (5-37); Blood Urea Nitrogen 34 mg/dL (9-16); Calcium 9.2 mg/dL (8.4-10.2); Carbon Dioxide 28 mmol/L (22-29); Chloride 97 mmol/L (96-108); Creatinine Clr Calc Pharmacy 51.1; Estimated Glomerular Filt Rate 57; Lipase 31 U/L (8-78); Potassium 5.5 mmol/L (3.3-5.1); Sodium 139 mmol/L (135-145); Total Protein 8.6 g/dL (6.5-8.0)
[2024-08-30 20:53] LABS: Platelet Count 99 X10*3/uL (160-400)
[2024-08-30 21:00] LABS: Resp Syncy Virus RNA Qual PCR NEGATIVE (Negative); SARS COV2 PCR INHOUSE NEGATIVE (Negative)
[2024-08-30] MEDS: Acetaminophen Supp 650 MG SUPP.RECT PR (21:11)
[2024-08-30] MEDS: 0.9 % Sodium Chloride 2,307 ML 2307 ML IV (21:31)
--- NOTE | 2024-08-30 21:51 | PC.NURSE ---
18g IV L upper arm. U/S guided by provider
--- NOTE | 2024-08-30 22:48 | PC.NURSE ---
male purewick in place, working well.
[2024-08-30 23:00] VITALS: BP 107/67; PULSE 105; RESP 18; O2SAT 95
[2024-08-30 23:13] LABS: Reflex Lactate? Lactic Acid Added
--- NOTE | 2024-08-30 23:16 | ED_ITS ---
HPI - General Adult General Chief complaint: General Medical Stated complaint: vomitting, possible aspiration Time Seen by Provider: 08/30/24 20:43 Source: other (Caregiver) Limitations: physical limitation and other (Physical and mental disability) History of Present Illness ED Provider: Michell Oro PA-C HPI narrative: 69-year-old male with a history of autism, intellectual disability, OCD, bipolar disorder, seizure disorder, dysphagia on G-tube, non-verbal, with recurrent aspiration pneumonia, who is primarily bed-bound at baseline, presents with nausea vomiting that began today. Patient was initially 80-90% on room air per EMS, he is now on 4 L nasal cannula, with an oxygen saturation of 95%. Unclear if the patient has had fevers. The caregiver indicates he had a minimal bowel movement today, and that his abdomen is distended and firm. He has not had any recent cough or cold symptoms. Related Data Home Medications ?Medication ?Instructions ?Recorded ?Confirmed bacitracin zinc 500 unit/gram 1 appl topical BID PRN W ound Care 12/24/21 11/13/23 topical ointment docusate sodium 60 mg/15 mL oral 100 mg feeding tube B EDTIME 11/10/22 11/13/23 syrup omeprazole 20 mg capsule,delayed 40 mg feeding tube DA ADRIANNA@0630 11/10/22 11/13/23 release nystatin 100,000 unit/gram topical 1 appl topical BID 12/18/22 11/13/23 powder citalopram 20 mg tablet 20 mg feeding tube DAILY 02/1011/13/23 citalopram 40 mg tablet 40 mg feeding tube DAILY 02/1011/13/23 valproic acid (as sodium salt) 250 1,000 mg feeding tu be BID@08,199904/01/23 11/13/23 mg/5 mL oral solution diphenhydramine HCl 12.5 mg/5 mL 25 mg PO Q6H PRN Hive s 11/13/23 11/13/23 oral liquid furosemide 40 mg/4 mL oral solution 40 mg PO QAM 11/1211/13/23 zinc oxide-cod liver oil 40 % 1 appl topical QID PRN r august 11/13/23 11/13/23 topical paste (Desitin) Previous Rx's ?Medication ?Instructions ?Recorded acetaminophen 325 mg tablet 650 mg (2 x 325 mg) feedin g tube 01/16/22 Q6H PRN Pain #60 tabs dextromethorphan-guaifenesin 10 10 ml feeding tube Q6H PRN Cough 01/16/22 mg-100 mg/5 mL oral liquid #500 mL loratadine 10 mg tablet 10 mg feeding tube DAILY #60 tabs 01/16/22 olanzapine 10 mg tablet 10 mg feeding tube DAILY #60 tabs 01/16/22 olanzapine 20 mg tablet 20 mg feeding tube BEDTIME # 30 tabs 01/16/22 polyethylene glycol 3350 17 17 g feeding tube BID #510 grams 01/16/22 gram/dose oral powder simethicone 40 mg/0.6 mL oral 40 mg (0.6 mL) feeding t ube 01/16/22 drops,suspension (Gas Relief TID@0800,1600,2000 #30 mL (simethicone)) #18 MACKENZIE gastrostomy feeding #1 ea 06/20/22 amoxicillin 400 mg-potassium 11 ml G-tube BID #110 mL 11/15/23 clavulanate 57 mg/5 mL oral suspension finasteride 5 mg tablet 5 mg feeding tube DAILY 90 d ays 12/25/23 #90 tabs Allergies Allergy/AdvReac Type Severity Reaction Status Date / Time haloperidol (From HALDOL) AdvReac Unknown UNKNOWN Verified 08/30/24 19:40 metoclopramide (From REGLAN) AdvReac Unknown UNKNOWN Verified 08/30/24 19:40 levofloxacin AdvReac Unknown Verified 08/30/24 19:43 [facility] Past Medical History Medical History (Updated 08/31/24 @ 00:57 by Car Palmer MD) Partial small bowel obstruction Pica Seizures BPH (benign prostatic hyperplasia) Dysphagia Pneumonia Mentally challenged Developmental non-verbal disorder Autism Severe sepsis Hydrocele Chronic renal disease Hyperlipemia Anemia Hypertension Hiatal hernia GERD (gastroesophageal reflux disease) OCD (obsessive compulsive disorder) Bipolar 1 disorder Surgical History History of colectomy H/O exploratory laparotomy Social History Social History Household Members: Other Household Members Other:: sn[facility], [facility] Housing: Other Housing Other:: gr. home Do you presently have visiting nurse or other home services: Yes Unable to assess alcohol history related to: Unable to respond Alcohol intake: never [facility] Patient Tobacco Use Status: Never used Tobacco Smoked in Last 30 Days: No Use of substances other than those prescribed or required for medical reasons: Unable to respond Advance Directives: No Advance Directives Information Provided: No Advance Directives Date on File: 12/24/21 Nutrition Risks: Receiving home tube feeding or CPN service: No Current occupational status: disabled Physical Exam ED Vital Signs: Vital Signs - 24 hr 08/30/24 19:39 08/30/24 23:00 08/30/24 23:29 Temperature 98.4 F Pulse Rate 104 H 105 H 116 H Respiratory Rate 30 H 18 16 Blood Pressure 118/72 107/67 95/73 Pulse Oximetry 95 95 95 Oxygen Delivery Method Nasal Cannula Nasal Cannula Nasal Cannula Oxygen Flow Rate 08/31/24 00:11 08/31/24 00:20 08/31/24 00:25 Temperature 101.2 F H 101.2 F H Pulse Rate 108 H 92 Respiratory Rate 16 23 H Blood Pressure 98/59 L 110/53 L Pulse Oximetry 94 94 Oxygen Delivery Method Nasal Cannula Nasal Cannula Oxygen Flow Rate 2 2 BMI result Body Mass Index 30.0 Course Reevaluation(s) Reevaluation #1: At 9:20 p.m. on August 30, a sepsis focused exam was performed. In addition to screening labs, blood cultures and lactic were obtained, starting weight based IV fluid therapy giving Tylenol, starting ceftriaxone Time: 21:20 Reevaluation #2: Lactic 4.8 Reevaluation #3: Repeat lactic 3.9, the patient has a bowel obstruction, the Lokelma is spilling out of the G-tube, paging Dr. Palmer for consult.... We will be giving calcium gluconate 2 gm and 5 mg of albuterol inhalant Consultations Consultation #1: per Dr. Palmer....he is at bedside, he had to come in for another case.... He decompress the patient's stomach via wall suction via the G-tube, he recommends medicine admit he will follow he will place a consult note Time: 23:54 Medications Administered Generic Name Dose Route Start Last Admin Trade Name Freq PRN Reason Stop Dose Admin Calcium Gluconate 2 gm in 100 mls @ 50 mls/hr 08/31/24 00:16 08/31/24 00:27 Calcium Gluconate IV 08/31/24 02:15 50 mls/hr ONCE ONE Administration Discontinued Medications Generic Name Dose Route Start Last Admin Trade Name Paul PRN Reason Stop Dose Admin Acetaminophen 650 mg 08/30/24 21:08 08/30/24 21:11 Acetaminophen Supp 650 Mg Supp.Rect LA 08/30/24 21:09 650 mg ONCE ONE Administration Albuterol Sulfate 2.5 mg/ 5 mg 08/31/24 00:16 08/31/24 00:28 Albuterol Sulfate 2.5 mg INHALE 08/31/24 00:17 5 mg ONCE ONE Administration Ceftriaxone Sodium 2 gm 08/30/24 21:20 08/30/24 21:27 Ceftriaxone Sodium 2 Gm Vial IVPUSH 08/30/24 21:21 2 gm ONCE ONE Administration Sodium Chloride 2,307 mls @ 2,307 mls/hr 08/30/24 21:13 08/30/24 22:59 Ns 30 ml/kg infuse over 1 hr (2307 ml) 08/30/24 22:12 Infused IV Infusion .Q1H STA Doxycycline Hyclate 100 mg/ 250 mls @ 166.67 mls/hr 08/30/24 23:32 08/31/24 01:27 Sodium Chloride IV 08/31/24 01:01 Infused ONCE ONE Infusion Morphine Sulfate 4 mg 08/30/24 23:31 08/30/24 23:38 Morphine Sulfate 4 Mg/Ml Cartridge IVPUSH 08/30/24 23:32 4 mg ONCE ONE Administration Protocol Ondansetron HCl 4 mg 08/30/24 23:31 08/30/24 23:38 Ondansetron Hcl 4 Mg/2 Ml Vial IVPUSH 08/30/24 23:32 4 mg ONCE ONE Administration Sodium Zirconium Cyclosilicate 10 gm 08/30/24 23:23 08/30/24 23:34 Sodium Zirconium Cyclosilicate 10 Gm Powd.Pack G-TUBE 08/30/24 23:24 10 gm ONCE ONE Administration Procedures Procedure Narrative Procedure Narrative: Ultrasound-guided IV 18 gauge 1-3/4 inch IV placed in left upper extremity, adequate blood return, flushes well secured with Tegaderm. Second-line required, 20 gauge 1.16 in IV placed in right forearm, adequate blood return, flushes well secured with Tegaderm Medical Decision Making Medical Decision Making MDM Narrative: 69-year-old male with a history of autism, intellectual disability, OCD, bipolar disorder, seizure disorder, dysphagia on G-tube, non-verbal, with recurrent aspiration pneumonia, who is primarily bed-bound at baseline, presents with nausea vomiting that began today. Patient was initially 80-90% on room air per EMS, he is now on 4 L nasal cannula, with an oxygen saturation of 95%. Unclear if the patient has had fevers. The caregiver indicates he had a minimal bowel movement today, and that his abdomen is distended and firm. He has not had any recent cough or cold symptoms. Problem: Bed-bound, nonverbal, both mental and physical disability, recurrent aspiration pneumonia, psychiatric illness History: Per caregiver I have considered the following differential diagnoses: Aspiration pneumonia, bowel obstruction, sepsis, viral syndrome, Plan: Patient has a septic, he is hypoxic, tachycardic, febrile. I am concerned for bowel obstruction and aspiration pneumonia at this time, he has had recurrent aspiration pneumonia, his abdomen is extremely tense, he has been vomiting today. In addition to screening labs, adding on a viral panel, chest CT CT abdomen and pelvis, blood cultures, lactic, starting empiric ceftriaxone weight based IV fluid and rectal Tylenol. I have independently reviewed the following tests: Labs: No overall leukocytosis, left shift noted, not anemic, thrombocytopenic at 99, slight bump in creatinine at 1.25, potassium 5.5, giving 10 g of Lokelma via G-tube, no additional electrolyte abnormality, lactic 4.8, viral panel negative, repeat lactic 3.9 Chest x-ray:FINDINGS: The lung apices are partially obscured. No consolidation. No pleural effusion. No pneumothorax. No cardiomegaly. No acute fracture. Wozafypb-[id number] bowel gas in the visible upper abdomen. IMPRESSION: No acute findings. CT chest: MPRESSION: Bilateral pulmonary infiltrates with areas of consolidation. Reactive lymph nodes. Nonemergent/incidental findings above. See separate CT Abdomen/Pelvis report............ Adding on doxycycline for coverage of aspiration pneumonia CT abdomen and pelvis: IMPRESSION: Findings consistent with bowel obstruction with transition point in the central abdomen proximal to a surgical anastomosis. Thickening of the wang of the rectum, which could be due to proctitis or vascular congestion. See separate CT Chest report. Lab Data 08/30/24 20:20 08/30/24 20:20 Labs: Lab Results 08/30/24 08/30/24 08/30/24 Range/Units 20:20 20:22 21:07 WBC 10.0 (4.8-10.8) X10*3/uL RBC 4.07 L (4.60-5.80) X10*6/uL Hgb 13.6 L D (14.0-18.0) g/dl Hct 38.5 L (42.0-52.0) % MCV 94.6 (80.0-98.0) fL MCH 33.4 H (27.0-33.0) pg MCHC 35.3 (31.0-36.0) g/dl RDW 14.6 (11.0-16.0) % Plt Count 99 L D (160-400) X10*3/uL MPV 11.4 (9.4-12.4) fL Immature Gran % (Auto) 0.7 H (0.0-0.4) % Neut % (Auto) 83.6 H (45-73) % Lymph % (Auto) 7.8 L (20-40) % [place] % (Auto) 7.3 (2-11) % Eos % (Auto) 0.3 (0-4) % Baso % (Auto) 0.3 (0-2) % Lymph # (Auto) 0.8 L (1.2-4.9) X10*3/uL [place] # (Auto) 0.7 (0.1-1.2) X10*3/uL Eos # (Auto) 0.0 (0.0-0.4) X10*3/uL Baso # (Auto) 0.0 (0.0-0.2) X10*3/uL Abs Immat Gran (auto) 0.07 H (0.00-0.03) X10*3/uL Absolute Neuts (auto) 8.3 (2.0-8.3) x10*3/uL Absolute Nucleated RBC 0.000 (0.0-0.012) X10*3/uL Nucleated RBC % (auto) 0.0 (0.0-0.2) /100WBC Smear Tech's Comments VERIFIED VBG pH 7.52 H (7.32-7.43) VBG pCO2 39 mmHg VBG pO2 91 mmHg VBG HCO3 32 H (22-26) mmol/L VBG O2 Saturation 98.0 % VBG Base Excess 9.4 mmol/L Sodium 139 (135-145) mmol/L Potassium 5.5 H D (3.3-5.1) mmol/L Chloride 97 (96-108) mmol/L Carbon Dioxide 28 (22-29) mmol/L Anion Gap 20 (12-20) BUN 34 H (9-16) mg/dL Creatinine 1.25 (0.5-1.4) mg/dL Estim Creat Clear Calc 51.1 Estimated GFR 57 Random Glucose 100 (60-115) mg/dL Lactic Acid 4.8 H* (0.5-2.0) mmol/L Lactic Acid F/U @ 2Hr (0.5-2.0) mmol/L Calcium 9.2 (8.4-10.2) mg/dL Total Bilirubin 0.6 (0.0-1.0) mg/dL AST 83 H (5-37) U/L ALT 34 (0-40) U/L Alkaline Phosphatase 102 (39-117) U/L Total Protein 8.6 H (6.5-8.0) g/dL Albumin 3.3 L (3.5-5.0) g/dL Lipase 31 (8-78) U/L Urine Color Urine Appearance Urine pH (5.0-9.0) Ur Specific [place] (1.005-1.025) Urine Protein (Neg-Trace) mg/dL Urine Glucose (UA) (Negative) mg/dL Urine Ketones (Negative) mg/dL Urine Blood (Negative) Urine Nitrite (Negative) Ur Leukocyte Esterase (Negative) Influenza Type A (PCR) NEGATIVE (Negative) Influenza Type B (PCR) NEGATIVE (Negative) RSV RNA Qual (PCR) NEGATIVE (Negative) SARS-CoV-2 RNA (RT-PCR) NEGATIVE (Negative) 08/30/24 Range/Units 23:32 WBC (4.8-10.8) X10*3/uL RBC (4.60-5.80) X10*6/uL Hgb (14.0-18.0) g/dl Hct (42.0-52.0) % MCV (80.0-98.0) fL MCH (27.0-33.0) pg MCHC (31.0-36.0) g/dl RDW (11.0-16.0) % Plt Count (160-400) X10*3/uL MPV (9.4-12.4) fL Immature Gran % (Auto) (0.0-0.4) % Neut % (Auto) (45-73) % Lymph % (Auto) (20-40) % [place] % (Auto) (2-11) % Eos % (Auto) (0-4) % Baso % (Auto) (0-2) % Lymph # (Auto) (1.2-4.9) X10*3/uL [place] # (Auto) (0.1-1.2) X10*3/uL Eos # (Auto) (0.0-0.4) X10*3/uL Baso # (Auto) (0.0-0.2) X10*3/uL Abs Immat Gran (auto) (0.00-0.03) X10*3/uL Absolute Neuts (auto) (2.0-8.3) x10*3/uL Absolute Nucleated RBC (0.0-0.012) X10*3/uL Nucleated RBC % (auto) (0.0-0.2) /100WBC Smear Tech's Comments VBG pH (7.32-7.43) VBG pCO2 mmHg VBG pO2 mmHg VBG HCO3 (22-26) mmol/L VBG O2 Saturation % VBG Base Excess mmol/L Sodium (135-145) mmol/L Potassium (3.3-5.1) mmol/L Chloride (96-108) mmol/L Carbon Dioxide (22-29) mmol/L Anion Gap (12-20) BUN (9-16) mg/dL Creatinine (0.5-1.4) mg/dL Estim Creat Clear Calc Estimated GFR Random Glucose (60-115) mg/dL Lactic Acid (0.5-2.0) mmol/L Lactic Acid F/U @ 2Hr 3.9 H* (0.5-2.0) mmol/L Calcium (8.4-10.2) mg/dL Total Bilirubin (0.0-1.0) mg/dL AST (5-37) U/L ALT (0-40) U/L Alkaline Phosphatase (39-117) U/L Total Protein (6.5-8.0) g/dL Albumin (3.5-5.0) g/dL Lipase (8-78) U/L Urine Color Yellow Urine Appearance Clear Urine pH >= 9.0 (5.0-9.0) Ur Specific [place] 1.020 (1.005-1.025) Urine Protein Negative (Neg-Trace) mg/dL Urine Glucose (UA) Negative (Negative) mg/dL Urine Ketones Negative (Negative) mg/dL Urine Blood Negative (Negative) Urine Nitrite Negative (Negative) Ur Leukocyte Esterase Negative (Negative) Influenza Type A (PCR) (Negative) Influenza Type B (PCR) (Negative) RSV RNA Qual (PCR) (Negative) SARS-CoV-2 RNA (RT-PCR) (Negative) Critical Care Time Critical Care Time Critical Care Time: Yes Total Critical Care Time: 45 Attestation: Irlanda Oro PA-C have personally performed 45 minutes of critical care time not including lines and procedures; sepsis, bowel obstruction surgical consult, hyperkalemia management Discharge Plan Discharge Clinical Impression: Aspiration pneumonia, Hypoxia, Bowel obstruction, Sepsis, LINO (acute kidney injury), Acute hyperkalemia Patient Disposition: Admitted As Inpatient
[2024-08-30 23:29] VITALS: BP 95/73; PULSE 116; RESP 16; O2SAT 95
[2024-08-30 23:42] LABS: Appearance Urine Clear; Glucose Urine UA Negative (Negative); PH >= 9.0 (5.0-9.0); Specific Gravity - Urine 1.020 (1.005-1.025)
[2024-08-31] VITALS (50 sets, daily range): BP systolic 71–149; BP diastolic 26–65; PULSE 80–108; RESP 13–23; TEMP 36.8–38.4; O2SAT 90–97
[2024-08-31 00:04] LABS: ~Lactic Acid-LAB USE ONLY 3.9 mmol/L (0.5-2.0)
[2024-08-31] MEDS: Calcium Gluconate/NaCl,Iso-Osm 2 GM/100 ML PLAST..BAG IV (00:27)
[2024-08-31] MEDS: Albuterol Sulfate 2.5 MG, Albuterol Sulfate (0.083%) 2.5 MG 5 MG INHALE (00:28)
--- NOTE | 2024-08-31 00:52 | PM.CNGS ---
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 The patient is nonverbal. According to the caregiver, he seemed to have been in his usual state of health during the day but later in the afternoon today, he vomited and seemed to be uncomfortable. He was having a bowel movement of the that time. His caregiver also noticed that he seemed to be more distended so was brought to the ER He has a PEG tube placed in 2021 because of he had had episodes of pneumonia from aspiration. The patient is from a assisted. His caregiver says that he does not verbally communicate. He is bed-bound. Review of Systems Review of Systems: Details were gathered from the caregiver Yes Unobtainable due to mental condition and Unobtainable due to mental status Constitutional: Constitutional: Denies chills and Denies fever(s) Gastrointestinal: Gastrointestinal: Reports vomiting PMFSH Past Medical History Medical History Partial small bowel obstruction Pica Seizures BPH (benign prostatic hyperplasia) Dysphagia Pneumonia Mentally challenged Developmental non-verbal disorder Autism Severe sepsis Hydrocele Chronic renal disease Hyperlipemia Anemia Hypertension Hiatal hernia GERD (gastroesophageal reflux disease) OCD (obsessive compulsive disorder) Bipolar 1 disorder Surgical History Surgical History History of colectomy H/O exploratory laparotomy Social History Social History Household Members: Unknown / Unable to assess Household Members Other:: assisted, [facility] Housing: Unknown / Unable to assess Housing Other:: gr. home Do you presently have visiting nurse or other home services: Yes Unable to assess alcohol history related to: Unable to respond Alcohol intake: never Comment: alf sitter present Patient Tobacco Use Status: Tobacco use Unknown Smoked in Last 30 Days: No Use of substances other than those prescribed or required for medical reasons: Unable to respond Currently Displaying Signs/Symptoms of Drug Intoxication Withdrawal: No Spiritual Healthcare Practices: unable to respond Judaism Healthcare Practices: unable to respond Cultural Healthcare Practices: unable to respond Advance Directives: No Advance Directives Information Provided: No Advance Directives on File: Yes Advance Directives Date on File: 12/24/21 Nutrition Risks: On aspiration precautions Poor oral hygiene: Yes service: No Current occupational status: disabled Meds Allergies Allergy/AdvReac Type Severity Reaction Status Date / Time haloperidol (From HALDOL) AdvReac Unknown UNKNOWN Verified 08/30/24 19:40 metoclopramide (From REGLAN) AdvReac Unknown UNKNOWN Verified 08/30/24 19:40 levofloxacin AdvReac Unknown Verified 08/30/24 19:43 Active Medications: Current Medications Doxycycline Hyclate 100 mg/ (Sodium Chloride) 250 mls @ 166.67 mls/hr IV ONCE ONE Stop: 08/31/24 01:01 Last Admin: 08/30/24 23:46 Dose: 166.67 mls/hr Calcium Gluconate (Calcium Gluconate) 2 gm in 100 mls @ 50 mls/hr IV ONCE ONE Stop: 08/31/24 02:15 Last Admin: 08/31/24 00:27 Dose: 50 mls/hr Ampicillin Sodium/Sulbactam (Sodium 3 gm/ Sodium Chloride) 100 mls @ 200 mls/hr IV Q6H RODOLFO Acetaminophen (Ofirmev) 1,000 mg in 100 mls @ 400 mls/hr IV ONCE ONE Stop: 08/31/24 00:54 Home Medications ?Medication ?Instructions ?Recorded ?Confirmed ?Last Taken ?Type bacitracin zinc 500 unit/gram 1 appl topical BID PRN Wound Care 12/24/21 08/31/24 11/07/23 History topical ointment docusate sodium 60 mg/15 mL oral 100 mg feeding tube BEDTIME 11/10/22 08/31/24 08/29/24 History syrup nystatin 100,000 unit/gram topical 1 appl topical BID PRN Rash 12/18/22 08/31/24 Unknown History powder citalopram 20 mg tablet 10 mg feeding tube DAILY 04/01/23 08/31/24 08/30/24 History citalopram 40 mg tablet 40 mg feeding tube DAILY 04/01/23 08/31/24 08/30/24 History valproic acid (as sodium salt) 250 1,000 mg feeding tube BID@0800,2000 04/01/2325 07/13/25 History mg/5 mL oral solution diphenhydramine HCl 12.5 mg/5 mL 25 mg PO Q6H PRN Hives 11/13/23 08/31/24 Unknown History oral liquid furosemide 40 mg/4 mL oral solution 40 mg PO DAILY 11/13/23 08/31/24 08/30/24 History famotidine 40 mg/5 mL (8 mg/mL) 40 mg PO BID 08/31/24 08/31/24 08/30/24 History oral suspension guar gum 2 g PO BID@0800,1600 08/31/24 08/31/24 08/30/24 History magnesium hydroxide 400 mg/5 mL 2,400 mg PO DAILY PRN Constipation 08/31/24 08/31/24 Unknown History oral suspension (Milk of Magnesia) zinc oxide 13 % topical cream 1 appl topical TID 08/31/24 08/31/24 08/30/24 History Physical Exam Vital Signs: Vital Signs: Last Vital Signs Temp 101.2 F H 08/31/24 00:25 Pulse 92 08/31/24 00:20 Resp 23 H 08/31/24 00:20 BP 110/53 L 08/31/24 00:20 Pulse Ox 94 08/31/24 00:20 O2 Del Method Nasal Cannula 08/31/24 00:20 O2 Flow Rate 2 08/31/24 00:20 Oxygen Flow Rate 3 08/30/24 19:39 BMI result Body Mass Index 30.0 Const: Other: Currently comfortable, nonverbal General: no acute distress Neck: Neck: Yes no lymphadenopathy Resp: Effort & Inspection: normal respiratory effort Auscultation: clear to auscultation bilaterally Cardio: Rhythm: regular rhythm GI: Other: Distended with no guarding or rebound, peg tube in place Palpation (GI): Soft to palpation, nontender and no guarding Results Labs 09/03/24 06:45 09/03/24 06:45 Labs: Abnormal lab results 08/30/24 08/30/24 08/30/24 Range/Units 20:20 20:22 21:07 RBC 4.07 L (4.60-5.80) X10*6/uL Hgb 13.6 L D (14.0-18.0) g/dl Hct 38.5 L (42.0-52.0) % MCH 33.4 H (27.0-33.0) pg Plt Count 99 L D (160-400) X10*3/uL Immature Gran % (Auto) 0.7 H (0.0-0.4) % Neut % (Auto) 83.6 H (45-73) % Lymph % (Auto) 7.8 L (20-40) % Lymph # (Auto) 0.8 L (1.2-4.9) X10*3/uL Abs Immat Gran (auto) 0.07 H (0.00-0.03) X10*3/uL VBG pH 7.52 H (7.32-7.43) VBG HCO3 32 H (22-26) mmol/L Potassium 5.5 H D (3.3-5.1) mmol/L BUN 34 H (9-16) mg/dL Lactic Acid 4.8 H* (0.5-2.0) mmol/L Lactic Acid F/U @ 2Hr (0.5-2.0) mmol/L AST 83 H (5-37) U/L Total Protein 8.6 H (6.5-8.0) g/dL Albumin 3.3 L (3.5-5.0) g/dL 08/30/24 Range/Units 23:32 RBC (4.60-5.80) X10*6/uL Hgb (14.0-18.0) g/dl Hct (42.0-52.0) % MCH (27.0-33.0) pg Plt Count (160-400) X10*3/uL Immature Gran % (Auto) (0.0-0.4) % Neut % (Auto) (45-73) % Lymph % (Auto) (20-40) % Lymph # (Auto) (1.2-4.9) X10*3/uL Abs Immat Gran (auto) (0.00-0.03) X10*3/uL VBG pH (7.32-7.43) VBG HCO3 (22-26) mmol/L Potassium (3.3-5.1) mmol/L BUN (9-16) mg/dL Lactic Acid (0.5-2.0) mmol/L Lactic Acid F/U @ 2Hr 3.9 H* (0.5-2.0) mmol/L AST (5-37) U/L Total Protein (6.5-8.0) g/dL Albumin (3.5-5.0) g/dL Short CBC 08/30/24 Range/Units 20:20 WBC 10.0 (4.8-10.8) X10*3/uL Hgb 13.6 L D (14.0-18.0) g/dl Hct 38.5 L (42.0-52.0) % Plt Count 99 L D (160-400) X10*3/uL BMP 08/30/24 20:20 Sodium 139 Potassium 5.5 H D Chloride 97 Carbon Dioxide 28 BUN 34 H Creatinine 1.25 Calcium 9.2 Liver Function 08/30/24 Range/Units 20:20 Total Bilirubin 0.6 (0.0-1.0) mg/dL AST 83 H (5-37) U/L ALT 34 (0-40) U/L Alkaline Phosphatase 102 (39-117) U/L Albumin 3.3 L (3.5-5.0) g/dL Urine 08/30/24 Range/Units 23:32 Urine Color Yellow Urine Appearance Clear Urine pH >= 9.0 (5.0-9.0) Ur Specific [place] 1.020 (1.005-1.025) Urine Protein Negative (Neg-Trace) mg/dL Urine Glucose (UA) Negative (Negative) mg/dL All other labs normal. IMPRESSION: Findings consistent with bowel obstruction with transition point in the central abdomen proximal to a surgical anastomosis. Thickening of the wang of the rectum, which could be due to proctitis or vascular congestion. Assessment and Plan (1) Partial small bowel obstruction: Status: Acute 69-year-old male, nonverbal and noncommunicative, brought to the ER for vomiting with abdominal distention. I have reviewed his CAT scan and this suggest partial small-bowel obstruction with a dilated small bowel lop proximal to what appears to be a staple line in the distal colon. His surgical history suggest a previous colectomy for volvulus. He has good amounts of air distal to the staple line fluid in the rectum. I have hooked up to his PEG to suction to decompress this. According to his caregiver, he appears to be much more comfortable now He has a pneumonia as well likely because of the aspiration. He is being admitted to the medical service. We will follow along closely. If he has vomiting again, his PEG tube should be correct connected to low intermittent suction. Procedures Date of Service Date of Service: 09/03/24
--- NOTE | 2024-08-31 01:03 | PC.NURSE ---
repositioned to R side for comfort. bottom clean and dry, no redness or breakdown noted. rectal temp 100.9
[2024-08-31 01:39] LABS: Reflex Lactate? 2 Y
--- NOTE | 2024-08-31 02:09 | PC.NURSE ---
second US IV placed to R forearm. 20g
--- NOTE | 2024-08-31 04:02 | PC.NURSE ---
pt repositioned to L side, rectal temp 100.1. bedding changed. pt tolerated well. senior living staff remains at bedside
[2024-08-31] MEDS: Albumin Human 25 % 100 ML 133.33 ML IV (04:27)
[2024-08-31] MEDS: Lactated Ringers 1,000 ML 999 ML IV (04:27)
--- NOTE | 2024-08-31 04:28 | PC.NURSE ---
MD Aware of blood pressure, oxygen destat to 82%, increased 02% to 5L, repositioned patient. Albumin and LR started. / repeat BP.
--- NOTE | 2024-08-31 04:47 | PC.NURSE ---
Auscultated lungs, pleural rub heard over left anterior chest. Per MD Win, albumin paused. LR bolus already infused. BP Stable.
--- NOTE | 2024-08-31 05:02 | PC.NURSE ---
BP decreased, albumin restarted per MD
--- NOTE | 2024-08-31 05:14 | PM.IMHP ---
History of Present Illness Date of Service: 08/31/24 Attending physician on admission: Zonia Win Chief Complaint: dyspnea Patient is a 69-year-old nonverbal male who resides in a nursing home, with a past medical history significant for recurrent aspiration pneumonia, history SBO, chronic G-tube, seizure disorder, GERD, mood disorder, autism, bipolar, nephrogenic diabetes insipidus, hypertension, hep a carrier and CKD III, who presented to the ED due to dyspnea after an episode of vomiting today with concern for aspiration pneumonia. His oxygenation was around 80-90% on room air improved to 94% with 4 L via NC. His abdomen has also been distended. He has not had any further vomiting in the ED. the patient's caregiver from the nursing home was able to provide his history as the patient is nonverbal. He had a PEG tube placed in 2021 due to recurrent aspiration pneumonia, has continued to have aspiration pneumonia but not as frequently. In the ED the patient was found to have sepsis with acute hypoxic respiratory failure secondary to aspiration pneumonia complicated by acute per partial small-bowel obstruction. Review of Systems Review of Systems: Yes Unobtainable due to mental condition [facility] Medical History Partial small bowel obstruction Pica Seizures BPH (benign prostatic hyperplasia) Dysphagia Pneumonia Mentally challenged Developmental non-verbal disorder Autism Severe sepsis Hydrocele Chronic renal disease Hyperlipemia Anemia Hypertension Hiatal hernia GERD (gastroesophageal reflux disease) OCD (obsessive compulsive disorder) Bipolar 1 disorder Functional capacity: bed bound Surgical History History of colectomy H/O exploratory laparotomy Social History Household Members: Other Household Members Other:: nursing home, [facility] [employer] Housing: Other Housing Other:: gr. home Do you presently have visiting nurse or other home services: Yes Unable to assess alcohol history related to: Unable to respond Alcohol intake: never Comment: [facility] caregiver at bedside Patient Tobacco Use Status: Never used Tobacco Smoked in Last 30 Days: No Use of substances other than those prescribed or required for medical reasons: Unable to respond Advance Directives: No Advance Directives Information Provided: No Advance Directives Date on File: 12/24/21 Nutrition Risks: Receiving home tube feeding or CPN service: No Current occupational status: disabled Meds Allergies Allergy/AdvReac Type Severity Reaction Status Date / Time haloperidol (From HALDOL) AdvReac Unknown UNKNOWN Verified 08/30/24 19:40 metoclopramide (From REGLAN) AdvReac Unknown UNKNOWN Verified 08/30/24 19:40 levofloxacin AdvReac Unknown Verified 08/30/24 19:43 Active Medications: Current Medications Furosemide (Furosemide 40 Mg/4 Ml Vial) 40 mg IVPUSH ONCE ONE; Protocol Stop: 08/31/24 05:12 Ampicillin Sodium/Sulbactam (Sodium 3 gm/ Sodium Chloride) 100 mls @ 200 mls/hr IV Q6H [facility] Last Infusion: 08/31/24 02:39 Dose: Infused Lactated Ringer's (Lr) 1,000 mls @ 999 mls/hr IV .Q1H1M RODOLFO Stop: 08/31/24 05:15 Last Infusion: 08/31/24 04:50 Dose: Infused Albumin Human (Kedbumin 25 %) 100 mls @ 133.333 mls/hr IV Q1H RODOLFO Stop: 08/31/24 05:59 Last Infusion: 08/31/24 05:02 Dose: 133.33 mls/hr Home Medications ?Medication ?Instructions ?Recorded ?Confirmed ?Last Taken ?Type bacitracin zinc 500 unit/gram 1 appl topical BID PRN Wound Care 12/24/21 11/13/23 11/07/23 History topical ointment docusate sodium 60 mg/15 mL oral 100 mg feeding tube BEDTIME 11/10/22 11/13/23 11/12/23 History syrup omeprazole 20 mg capsule,delayed 40 mg feeding tube DAILY@0630 11/10/22 11/13/23 11/12/23 History release nystatin 100,000 unit/gram topical 1 appl topical BID 12/18/22 11/13/23 Unknown History powder citalopram 20 mg tablet 20 mg feeding tube DAILY 04/01/23 11/13/23 11/12/23 History citalopram 40 mg tablet 40 mg feeding tube DAILY 04/01/23 11/13/23 11/12/23 History valproic acid (as sodium salt) 250 1,000 mg feeding tube BID@0800,199904/01/23 11/13/2324 History mg/5 mL oral solution diphenhydramine HCl 12.5 mg/5 mL 25 mg PO Q6H PRN Hives 11/13/23 11/13/23 Unknown History oral liquid furosemide 40 mg/4 mL oral solution 40 mg PO QAM 11/13/23 11/13/23 11/12/23 History zinc oxide-cod liver oil 40 % 1 appl topical QID PRN rash 11/13/23 11/13/23 Unknown History topical paste (Desitin) Physical Exam Vital Signs and Narrative: Vital Signs: Last Vital Signs Temp 100.1 F 08/31/24 04:04 Pulse 86 08/31/24 04:04 Resp 15 08/31/24 04:04 BP 79/39 L 08/31/24 05:02 Pulse Ox 91 L 08/31/24 04:43 O2 Del Method Nasal Cannula 08/31/24 04:43 O2 Flow Rate 5 08/31/24 04:43 Oxygen Flow Rate 3 08/30/24 19:39 BMI result Body Mass Index 30.0 General: Alert, unable to determine orientation pt is non-verbal, no acute distress. seen with healthcare social worker who provides history Resp: crackles bilateral lower lung bases, no wheezing CVS: S1, S2, RRR GI: hypoacitve BS, NT, distended Skin: Warm, dry Neuro: PERRL, able to move all extremities Extremities: 2+ pitting pedal edema bilaterally Psych: non-verbal Results Labs 08/30/24 20:20 08/30/24 20:20 Labs: Laboratory Results - last 24 hr 08/30/24 08/30/24 08/30/24 20:20 20:22 21:07 MCV 94.6 MCH 33.4 H MCHC 35.3 RDW 14.6 Plt Count 99 L D MPV 11.4 Immature Gran % (Auto) 0.7 H Neut % (Auto) 83.6 H Lymph % (Auto) 7.8 L [place] % (Auto) 7.3 Eos % (Auto) 0.3 Baso % (Auto) 0.3 Lymph # (Auto) 0.8 L [place] # (Auto) 0.7 Eos # (Auto) 0.0 Baso # (Auto) 0.0 Abs Immat Gran (auto) 0.07 H Absolute Neuts (auto) 8.3 Absolute Nucleated RBC 0.000 Nucleated RBC % (auto) 0.0 Smear Tech's Comments VERIFIED VBG pH 7.52 H VBG pCO2 39 VBG pO2 91 VBG HCO3 32 H VBG O2 Saturation 98.0 VBG Base Excess 9.4 Anion Gap 20 Estim Creat Clear Calc 51.1 Estimated GFR 57 Random Glucose 100 Lactic Acid 4.8 H* Lactic Acid F/U @ 2Hr Calcium 9.2 Total Bilirubin 0.6 AST 83 H ALT 34 Alkaline Phosphatase 102 Total Protein 8.6 H Albumin 3.3 L Lipase 31 Urine Color Urine Appearance Urine pH Ur Specific [place] Urine Protein Urine Glucose (UA) Urine Ketones Urine Blood Urine Nitrite Ur Leukocyte Esterase Influenza Type A (PCR) NEGATIVE Influenza Type B (PCR) NEGATIVE RSV RNA Qual (PCR) NEGATIVE SARS-CoV-2 RNA (RT-PCR) NEGATIVE 08/30/24 23:32 MCV MCH MCHC RDW Plt Count MPV Immature Gran % (Auto) Neut % (Auto) Lymph % (Auto) [place] % (Auto) Eos % (Auto) Baso % (Auto) Lymph # (Auto) [place] # (Auto) Eos # (Auto) Baso # (Auto) Abs Immat Gran (auto) Absolute Neuts (auto) Absolute Nucleated RBC Nucleated RBC % (auto) Smear Tech's Comments VBG pH VBG pCO2 VBG pO2 VBG HCO3 VBG O2 Saturation VBG Base Excess Anion Gap Estim Creat Clear Calc Estimated GFR Random Glucose Lactic Acid Lactic Acid F/U @ 2Hr 3.9 H* Calcium Total Bilirubin AST ALT Alkaline Phosphatase Total Protein Albumin Lipase Urine Color Yellow Urine Appearance Clear Urine pH >= 9.0 Ur Specific [place] 1.020 Urine Protein Negative Urine Glucose (UA) Negative Urine Ketones Negative Urine Blood Negative Urine Nitrite Negative Ur Leukocyte Esterase Negative Influenza Type A (PCR) Influenza Type B (PCR) RSV RNA Qual (PCR) SARS-CoV-2 RNA (RT-PCR) Assessment and Plan (1) Septic shock: Status: Acute (2) Acute respiratory failure with hypoxia: Status: Acute (3) Aspiration pneumonia: Status: Acute (4) Partial small bowel obstruction: Status: Acute (5) Acute hyperkalemia: Status: Acute (6) Acute kidney injury superimposed on stage 3a chronic kidney disease: Status: Acute (7) Thrombocytopenia: Status: Acute Plan Patient is a 69-year-old nonverbal male who resides in a nursing home, with a past medical history significant for recurrent aspiration pneumonia, history SBO, chronic G-tube, seizure disorder, GERD, mood disorder, autism, bipolar, nephrogenic diabetes insipidus, hypertension, hep b carrier and CKD III, who presented to the ED due to dyspnea after an episode of vomiting today with concern for aspiration pneumonia. In the ED the patient was found to have sepsis with acute hypoxic respiratory failure secondary to aspiration pneumonia complicated by acute per partial small-bowel obstruction. Initially blood pressures were okay, now hypotensive requiring albumin and norepinephrine, patient to be transferred to ICU. septic shock with acute hypoxic respiratory failure secondary to aspiration pneumonia - initially pressures were ok, now hypotensive requiring albumin after receiving 30 cc/kg sepsis fluid bolus, 1 L LR - ICU consulted started on norepinephrine and will be transferred to the unit - tachycardic and tachypneic with lactic acid of 4.8, 3.9, back up to 4.8, blood cultures x2 pending, no leukocytosis - initial chest x-ray with no acute cardio pulmonary findings, moderate to large bowel gas in the visible upper abdomen - chest CT with bilateral pulmonary infiltrates with areas of consolidation. Reactive lymph nodes. Degenerative changes of the spine. Small hiatal hernia (known) - repeat chest x-ray with interstitial prominence. Mild vascular congestion possible. - given 1 dose 40 mg IV Lasix in ED - initially started on ceftriaxone and doxycycline, switched to Unasyn for aspiration pneumonia - titrate oxygen as needed - monitor CBC and BMP Partial small-bowel obstruction - abdominopelvic CT with findings consistent with bowel obstruction with transition point in the central abdomen proximal to his surgical anastomosis. Thickening of the wang of the rectum, which could be due to proctitis or vascular congestion. - general surgery consulted, patient used on G-tube suction - NPO - surgery to follow Acute hyperkalemia - potassium 5.5 with mild hemolysis - received IV fluids as above with additional 10 g of Lokelma via G-tube - monitor BMP LINO on CKD 3 - no recent baseline labs to compare, cr 10/2023 0.83, now 1.25 - IVF as above - avoid nephrotoxins when possible - monitor creatinine Acute thrombocytopenia - platelets 99, likely secondary to sepsis - monitor CBC Seizure disorder -- distant history - no current medications GERD - continue home meds Mood disorder/autism/bipolar - continue home meds History nephrogenic diabetes insipidus - blood sugar normal - monitor POC Hep B carrier - AST elevated at 83, ALT normal, alk-phos normal, bilirubin normal - AST likely elevated secondary to sepsis - continue to monitor outpatient Med rec pending Full code, patient's guardian is sisterSherry VTE prophy: compression, pt with thrombocytopenia Patient with septic shock secondary to aspiration pneumonia complicated by partial small-bowel obstruction, requiring admission for at least 2 midnights stay for IV antibiotics, monitoring and surgical evaluation. Quality Stroke Does the patient have a stroke diagnosis?: No VTE Prior VTE?: No VTE Risk Level:: Medical - moderate - high VTE Device Contraindication: N/A - Device Ordered VTE Drug Contraindication: Treatment Not Indicated
[2024-08-31 05:16] LABS: ~Lactic Acid-LAB USE ONLY 4.8 mmol/L (0.5-2.0)
[2024-08-31] MEDS: Furosemide 40 MG/4 ML VIAL IVPUSH (05:26)
[2024-08-31 05:51] LABS: MANUAL DIFF FLAG NO
[2024-08-31 05:53] LABS: Hematocrit 28.5 % (42.0-52.0); Hemoglobin 9.7 g/dl (14.0-18.0); Imm Gran Abs Auto 0.01 X10*3/uL (0.00-0.03); Imm Gran Pct Auto 0.2 % (0.0-0.4); Lymphocytes Absolute Auto 0.8 X10*3/uL (1.2-4.9); Mean Corpuscular HGB Conc 34.0 g/dl (31.0-36.0); Mean Corpuscular Hemoglobin 33.4 pg (27.0-33.0); Mean Corpuscular Volume 98.3 fL (80.0-98.0); NRBC Abs Auto 0.000 X10*3/uL (0.0-0.012); NRBC Pct Auto 0.0 /100WBC (0.0-0.2); Platelet Count 110 X10*3/uL (160-400); Red Blood Count 2.90 X10*6/uL (4.60-5.80); White Blood Count 4.7 X10*3/uL (4.8-10.8)
[2024-08-31 06:03] LABS: Anion Gap 15 (12-20); Blood Urea Nitrogen 26 mg/dL (9-16); Calcium 9.0 mg/dL (8.4-10.2); Carbon Dioxide 25 mmol/L (22-29); Chloride 105 mmol/L (96-108); Creatinine Clr Calc Pharmacy 60.9; Estimated Glomerular Filt Rate > 60; Potassium 4.3 mmol/L (3.3-5.1); Sodium 141 mmol/L (135-145)
--- NOTE | 2024-08-31 06:05 | PC.NURSE ---
1 bag of albumin infused, provider then ordered levophed d/t BP not increasing, ordered to hold second bag of albumin.
[2024-08-31 06:16] LABS: B Type Natriuretic Peptide 269 pg/mL (<100)
--- NOTE | 2024-08-31 06:37 | PC.NURSE ---
Hospitalist at bed side, pain medication ordered due to grunting and observable discomfort. Levoped increased by hospitalist to 0.08 mcg/kg due to pain medication affect on blood pressure. Updated APR.
--- NOTE | 2024-08-31 07:50 | PC.NURSE ---
this RN resumed care of pt at 0645. patient nonverbal/bed bound baseline. during shift change, patient noted to be 88% on 5L via NC. no sob/wob noted. patient transitioned to 8L via oxymask w/ good effect. pt remains in upright position to promote patent airway. levo titrated per protocol to maintain map > 65. see MAR for titrations. otherwise patient remains nsr on the property assessment monitor. additional 22gIV placed in the left hand for IV abx administration. medication administered per provider order. correction staff member bedside for support. pt pending ICU bed assignment at this time. plan of care ongoing. call [place] placed within reach.
--- NOTE | 2024-08-31 08:10 | P.PNGS_ITS ---
Subjective Subjective Date of Service: 08/31/24 Interval history: Blood pressure and O2 sats borderline Awaiting bed in the ICU No episodes of vomiting Seems less restless Physical Exam 2 Vital Signs: Vital Signs: Last Vital Signs Temp 98.2 F 08/31/24 07:00 Pulse 96 08/31/24 07:45 Resp 14 08/31/24 07:45 BP 106/56 L 08/31/24 07:45 Pulse Ox 95 08/31/24 07:45 O2 Del Method Oxymask 08/31/24 07:45 O2 Flow Rate 8 08/31/24 07:45 Oxygen Flow Rate 3 08/30/24 19:39 BMI result Body Mass Index 30.0 Const: Other: Appears comfortable currently General: no acute distress Resp: Effort & Inspection: normal respiratory effort Cardio: Rate: regular rate GI: Other: Some distention, no obvious tenderness Palpation (GI): Soft to palpation and not firm Objective Data Active Medications Hydromorphone HCl (Hydromorphone Hcl 0.5 Mg/0.5 Ml Syringe) 0.5 mg IVPUSH Q4H PRN; Protocol PRN Reason: Pain, Moderate(Pain Scale 4-6) Last Admin: 08/31/24 06:49 Dose: 0.5 mg Documented By: BEVERLY Ampicillin Sodium/Sulbactam (Sodium 3 gm/ Sodium Chloride) 100 mls @ 200 mls/hr IV Q6H [facility] Last Admin: 08/31/24 07:23 Dose: 200 mls/hr Documented By: MACARIO Norepinephrine Bitartrate (Levophed) 8 mg in 250 mls @ 0 mls/hr IVCONT .Q0M [facility]; Protocol Last Titration: 08/31/24 07:13 Dose: 0.1 mcg/kg/min, 14.42 mls/hr Documented By: MACARIO Sodium Chloride (0.9 % Sodium Chloride Flush 3 Ml Syringe) 3 ml IVFLUSH QSHIFT [facility] Last Admin: 08/31/24 07:15 Dose: Not Given Documented By: MACARIO Non-Admin Reason: IV Running Labs 08/31/24 05:45 08/31/24 05:45 Labs: Laboratory Results - last 24 hr 08/30/24 08/30/24 08/30/24 20:20 20:22 21:07 MCV 94.6 MCH 33.4 H MCHC 35.3 RDW 14.6 Plt Count 99 L D MPV 11.4 Immature Gran % (Auto) 0.7 H Neut % (Auto) 83.6 H Lymph % (Auto) 7.8 L Sac % (Auto) 7.3 Eos % (Auto) 0.3 Baso % (Auto) 0.3 Lymph # (Auto) 0.8 L Sac # (Auto) 0.7 Eos # (Auto) 0.0 Baso # (Auto) 0.0 Abs Immat Gran (auto) 0.07 H Absolute Neuts (auto) 8.3 Absolute Nucleated RBC 0.000 Nucleated RBC % (auto) 0.0 Smear Tech's Comments VERIFIED VBG pH 7.52 H VBG pCO2 39 VBG pO2 91 VBG HCO3 32 H VBG O2 Saturation 98.0 VBG Base Excess 9.4 Anion Gap 20 Estim Creat Clear Calc 51.1 Estimated GFR 57 Random Glucose 100 Lactic Acid 4.8 H* Lactic Acid F/U @ 2Hr Lactic Acid F/U @ 4Hr Calcium 9.2 Total Bilirubin 0.6 AST 83 H ALT 34 Alkaline Phosphatase 102 B-Natriuretic Peptide Total Protein 8.6 H Albumin 3.3 L Lipase 31 Urine Color Urine Appearance Urine pH Ur Specific [place] Urine Protein Urine Glucose (UA) Urine Ketones Urine Blood Urine Nitrite Ur Leukocyte Esterase Influenza Type A (PCR) NEGATIVE Influenza Type B (PCR) NEGATIVE RSV RNA Qual (PCR) NEGATIVE SARS-CoV-2 RNA (RT-PCR) NEGATIVE 08/30/24 08/31/24 08/31/24 23:32 04:45 05:45 MCV 98.3 H MCH 33.4 H MCHC 34.0 RDW 15.1 Plt Count 110 L MPV 10.5 Immature Gran % (Auto) 0.2 Neut % (Auto) 65.4 Lymph % (Auto) 17.5 L Sac % (Auto) 16.5 H Eos % (Auto) 0.0 Baso % (Auto) 0.4 Lymph # (Auto) 0.8 L Sac # (Auto) 0.8 Eos # (Auto) 0.0 Baso # (Auto) 0.0 Abs Immat Gran (auto) 0.01 Absolute Neuts (auto) 3.1 Absolute Nucleated RBC 0.000 Nucleated RBC % (auto) 0.0 Smear Tech's Comments VBG pH VBG pCO2 VBG pO2 VBG HCO3 VBG O2 Saturation VBG Base Excess Anion Gap 15 Estim Creat Clear Calc 60.9 Estimated GFR > 60 Random Glucose 71 Lactic Acid Lactic Acid F/U @ 2Hr 3.9 H* Lactic Acid F/U @ 4Hr 4.8 H* Calcium 9.0 Total Bilirubin AST ALT Alkaline Phosphatase B-Natriuretic Peptide 269 H Total Protein Albumin Lipase Urine Color Yellow Urine Appearance Clear Urine pH >= 9.0 Ur Specific [place] 1.020 Urine Protein Negative Urine Glucose (UA) Negative Urine Ketones Negative Urine Blood Negative Urine Nitrite Negative Ur Leukocyte Esterase Negative Influenza Type A (PCR) Influenza Type B (PCR) RSV RNA Qual (PCR) SARS-CoV-2 RNA (RT-PCR) Procedures Date of Service Date of Service: 08/31/24 Progress Note: A&P Assessment and plan (1) Partial small bowel obstruction: Status: Acute Assessment and Plan: With aspiration pneumonia Keep NPO Whenever PEG tube to low wall suction On IV antibiotics Blood pressure support We will follow closely Being transferred to ICU Time Spent With Patient Time: Total time managing care of this patient today ____ minutes. Quality Stroke Does the patient have a stroke diagnosis?: No VTE Prior VTE?: No VTE Risk Level:: Medical - moderate - high VTE Device Contraindication: N/A - Device Ordered VTE Drug Contraindication: Treatment Not Indicated
--- NOTE | 2024-08-31 08:21 | PC.NURSE ---
report given to LUCIA Lou in the ICU at this time.
--- NOTE | 2024-08-31 08:38 | PC.NURSE ---
patient noted to be 91% on 8L via oxymask at this time. slight sob/wob noted. pt titrated to 10L w/ no effect. patient now on 12L via oxymask w/ good effect. 16fr temp sensing grande catheter inserted at this time. 200ml of clear, pale yellow, non-foul smelling urine noted immediately post output. patient pending transport to ICU at this time. skilled nursing staff remains bedside. plan of care ongoing.
--- NOTE | 2024-08-31 08:41 | PC.NURSE ---
patient transferred to the ICU w/ this RN as well as transport at this time.
--- NOTE | 2024-08-31 09:00 | PC.NURSE ---
verbal update given to patient's legal guardian, Sherry at this time.
--- NOTE | 2024-08-31 09:05 | PHA.MEDREC ---
Pharmacy Consult ? Medication Reconciliation Pharmacy has completed the medication reconciliation, using med list from [facility].
--- NOTE | 2024-08-31 11:18 | PM.CCN ---
Critical Care Event Note Summary Date of Service: 08/31/24 Code activated: No Narrative: 69-year-old gentleman with underlying autism, developmental disorder, nonverbal at baseline, cool home resident, also OCD/bipolar, dysphagia status post that, seizures, prior SBO admitted on 08/31/2024 to telemetry service for aspiration pneumonia on a background of SBO with transition point. Evaluated by General surgery with plans for conservative management. Hospital course further significant for hypertension poorly responsive to initial IV fluid resuscitation requiring transfer to the intensive care unit for pressor support. Continues on empiric antibiotics for underlying aspiration pneumonitis versus pneumonia, intermittent suction through the PEG for SBO, and pressor support. Critical Care Time (minutes): 0
--- NOTE | 2024-08-31 11:31 | MHC.CM.PN ---
Pt is non verbal at baseline: information obtained from EMR, [facility] staff and pt's guardian, his sister Sherry. Pt resides in a S medical [facility] w/10/09 nursing staff. He is totally dependent for all care needs and has a patent peg tube. Met w/[facility] staff, Myrtle chowdhury states pt has all needed DME and supplies. He will transport back to [facility] via BLS. Myrtle states [facility] will need a care plan meeting prior to pt d/c to ensure pt's care needs can be met. CM to follow.
--- NOTE | 2024-08-31 11:36 | MHC.CLN ---
PT IS CURRENTLY NPO R/T PSBO PT WITH PEG TUBE DISCUSSED AT ROUNDS WITH MD IF TF NEEDED; RECOMMEND GLUCERNA 1.0 AT MAX GOAL RATE 60ML/HR TO PROVIDE 1440KCALS, 60G PROTEIN, 1228ML FREE WATER MONITOR TOLERANCE AND LYTES CONSULT RD IF ALTERNATIVE NUTRITION NEEDED R/T PSBO FOLLOWING FOR DIET ADVANCEMENT
[2024-08-31] MEDS: Valproic Acid (as Sodium Salt) 500 MG in Dextrose 5 % 50 ML 55 MG IV ×2 (12:07→20:25)
--- NOTE | 2024-08-31 12:37 | P.CDIM_ITS ---
PROVIDER RESPONSE TEXT: To clarify, the appropriate diagnosis supported by the clinical indicators: Pancytopenia: suspected QUERY TEXT: PHYSICIAN'S DOCUMENTATION REQUEST Date of Query: 08/31/2024 11:44 AM EDT Patient Name: Mingo Henriquez Admit Date: 08/31/2024 Dear Rafita Jolley MD, A review of the medical record indicates additional documentation may be needed. Please review below and update the documentation accordingly. Clinical Indicators: LABS: WBC 4.7 RBC 2.90 PLT 99/110 Thrombocytopenia Based on the above, is there a diagnosis that correlates with these findings? Pancytopenia possible, probable, suspected, cannot rule out etc. Idiopathic pancytopenia Other specified etiology Other (explain) Clinically unable to determine (explain) Thank you, Tamia Quijano, CCS, CDIS Use of terms such as suspected, likely, concern for, or probable (associated with a specific diagnosis that is being evaluated, monitored, or treated as if it exists) are acceptable and can be coded in the inpatient setting, when documented at the time of discharge. Please use your independent medical judgment in providing your response. THIS QUERY IS PART OF THE PERMANENT MEDICAL RECORD
[2024-08-31] MEDS: 0.9 % Sodium Chloride Flush 3 ML SYRINGE IVFLUSH (14:01)
--- NOTE | 2024-08-31 16:08 | PM.EVENT ---
Event Note Date of Service: 08/31/24 Event Note: Seen on afternoon rounds Now in the ICU Appears comfortable Abdomen is soft, benign, no obvious tenderness, no guarding, no rebound Being treated for aspiration pneumonia If with abdominal distention, vomiting, should place the tube to low intermittent wall suction We will continue to follow Time Spent With Patient Time: Total time managing care of this patient today ____ minutes.
--- NOTE | 2024-08-31 17:28 | PC.NURSE ---
Patient admitted to unit from ED via stretcher without incident. Unable to titrate levo off at this time. Care ongoing.
[2024-09-01] VITALS (35 sets, daily range): BP systolic 91–140; BP diastolic 47–77; PULSE 69–108; RESP 12–123; TEMP 36.2–38.1; O2SAT 92–98; BMI 30.1
[2024-09-01] MEDS: 0.9 % Sodium Chloride Flush 3 ML SYRINGE IVFLUSH ×3 (00:03→15:54)
[2024-09-01] MEDS: Valproic Acid (as Sodium Salt) 500 MG in Dextrose 5 % 50 ML 55 MG IV ×3 (03:18→20:33)
[2024-09-01 05:33] LABS: VBG HCO3 28 mmol/L (22-26); VBG O2 % Saturation 99.0 %
[2024-09-01 05:46] LABS: Mean Corpuscular Volume 97.7 fL (80.0-98.0); NRBC Abs Auto 0.000 X10*3/uL (0.0-0.012); NRBC Pct Auto 0.0 /100WBC (0.0-0.2); PLT CLUMP 1
[2024-09-01 05:48] LABS: Hematocrit 29.6 % (42.0-52.0); Hemoglobin 10.3 g/dl (14.0-18.0); Mean Corpuscular HGB Conc 34.8 g/dl (31.0-36.0); Mean Corpuscular Hemoglobin 34.0 pg (27.0-33.0); Red Blood Count 3.03 X10*6/uL (4.60-5.80)
[2024-09-01 05:51] LABS: Alanine Aminotransferase 21 U/L (0-40); Albumin Level 2.9 g/dL (3.5-5.0); Alkaline Phosphatase 64 U/L (39-117); Anion Gap 16 (12-20); Aspartate Amino Transferase 91 U/L (5-37); Blood Urea Nitrogen 18 mg/dL (9-16); Calcium 9.4 mg/dL (8.4-10.2); Carbon Dioxide 24 mmol/L (22-29); Chloride 109 mmol/L (96-108); Creatinine Clr Calc Pharmacy 58.7; Estimated Glomerular Filt Rate > 60; Magnesium 2.0 mg/dL (1.6-2.6); Potassium 4.3 mmol/L (3.3-5.1); Sodium 145 mmol/L (135-145); Total Protein 7.1 g/dL (6.5-8.0)
[2024-09-01 05:52] LABS: Platelet Count 134 X10*3/uL (160-400); White Blood Count 12.2 X10*3/uL (4.8-10.8)
[2024-09-01 06:09] LABS: Band Neutrophils Percent 32 % (3-5); Eosinophils Absolute Manual 0.1 X10*3/uL (0.0-0.4); Eosinophils Percent Manual 1 % (0-4); Lymphocytes Absolute Manual 0.9 X10*3/uL (1.2-4.9); Lymphocytes Percent Manual 7 % (20-40); Metamyelocytes Absolute 0.4 X10*3/uL; Metamyelocytes Percent 3 %; Monocytes Absolute Manual 0.2 X10*3/uL (0.1-1.2); Monocytes Percent Manual 2 % (2-11); Myelocytes Absolute 0.4 X10*/uL; Myelocytes Percent 3 %; Neutrophils Absolute Manual 10.2 X10*3/uL (2.0-8.3); Neutrophils Percent Manual 52 % (45-73)
[2024-09-01 06:11] LABS: Macrocytosis 1+ (5-14) /OIF; RBC Morphology NOTED
[2024-09-01 06:15] LABS: Basophilic Stippling 1+ (0-2) /OIF; Polychromasia 1+ (0-2) /OIF; Tear Drop Cells 1+ (0-2) /OIF
[2024-09-01 06:16] LABS: Large Platelet PRESENT; Toxic Granulation PRESENT; Toxic Vacuolation PRESENT
[2024-09-01 06:17] LABS: Hypochromasia 1+ (5-14) /OIF; Stomatocytes 1+ (5-14) /OIF
--- NOTE | 2024-09-01 06:56 | HO.SKINPHOTO ---
Location: Left inner arm DOREEN/MDPI Location: Left upper arm IV infiltration/extravisation
--- NOTE | 2024-09-01 07:05 | PC.NURSE ---
Assumed care at 1900. Patient alert and tracking, nonverbal at baseline but occasionally moans. Levophed gtt running per APR for BP support. Patient initially on HFNC 45L/45%, titrated down to 4L NC. PEG tube connected to LIWS per MD Palmer, no output noted this shift. Oro catheter in place and patent, draining clear yellow urine. Blanchable redness to buttocks, see skin notes. Patient repositioned Q2HR, bed locked in lowest position, bed alarm on, group?home staff at bedside.?
--- NOTE | 2024-09-01 08:06 | P.PNGS_ITS ---
Subjective Subjective Date of Service: 09/01/24 <Armida Morris PA-C - Last Filed: 09/01/24 08:09> 09/02/24 <Car Palmer MD - Last Filed: 09/02/24 08:09> Interval history: Appears comfortable in bed this morning. Per RN no BM. PEG tube has been to intermittent wall suction without any drainage. <Armida Morris PA-C - Last Filed: 09/01/24 08:09> Physical Exam 2 Vital Signs: Vital Signs: Last Vital Signs Temp 100.0 F 09/01/24 08:00 Pulse 83 09/01/24 08:00 Resp 15 09/01/24 08:00 BP 96/52 L 09/01/24 08:00 Pulse Ox 98 09/01/24 08:00 O2 Del Method Nasal Cannula 09/01/24 08:00 O2 Flow Rate 4 09/01/24 08:00 FiO2 35 09/01/24 05:45 Oxygen Flow Rate 3 08/30/24 19:39 BMI result Body Mass Index 30.1 <Armida Morris PA-C - Last Filed: 09/01/24 08:09> Const: Other: sleeping <Armida Morris PA-C - Last Filed: 09/01/24 08:09> Resp: Effort & Inspection: not labored <Armida Morris PA-C - Last Filed: 09/01/24 08:09> GI: Other: abdomen remains softly distended and tympanitic nontender to palpation PEG tube in place to suction <Armida Morris PA-C - Last Filed: 09/01/24 08:09> Extrem: General: Yes no clubbing, cyanosis or edema <Armida Morris PA-C - Last Filed: 09/01/24 08:09> Objective Data Active Medications Hydromorphone HCl (Hydromorphone Hcl 0.5 Mg/0.5 Ml Syringe) 0.5 mg IVPUSH Q4H PRN; Protocol PRN Reason: Pain, Moderate(Pain Scale 4-6) Last Admin: 09/01/24 05:17 Dose: 0.5 mg Documented By: RAINA Ampicillin Sodium/Sulbactam (Sodium 3 gm/ Sodium Chloride) 100 mls @ 200 mls/hr IV Q6H [facility] Last Infusion: 09/01/24 06:49 Dose: Infused Documented By: ALEXA Norepinephrine Bitartrate (Levophed) 8 mg in 250 mls @ 0 mls/hr IVCONT .Q0M [facility]; Protocol Last Titration: 09/01/24 06:21 Dose: 0.06 mcg/kg/min, 8.65 mls/hr Documented By: RAINA Valproic Acid 500 mg/ Dextrose 55 mls @ 55 mls/hr IV Q8H [facility] Last Infusion: 09/01/24 04:25 Dose: Infused Documented By: ALEXA Sodium Chloride (0.9 % Sodium Chloride Flush 3 Ml Syringe) 3 ml IVFLUSH QSHIFT [facility] Last Admin: 09/01/24 00:03 Dose: 3 ml Documented By: RAINA <Armida Morris PA-C - Last Filed: 09/01/24 08:09> Labs CBC & Chem 7: 09/02/24 05:19 09/02/24 05:19 <Armida Morris PA-C - Last Filed: 09/01/24 08:09> Labs: Laboratory Results - last 24 hr 09/01/24 09/01/24 09/01/24 05:22 05:28 05:38 MCV 97.7 MCH 34.0 H MCHC 34.8 RDW 15.1 Plt Count 134 L MPV 10.1 Immature Gran % (Auto) Cancelled Neut % (Auto) Cancelled Lymph % (Auto) Cancelled [place] % (Auto) Cancelled Eos % (Auto) Cancelled Baso % (Auto) Cancelled Lymph # (Auto) Cancelled [place] # (Auto) Cancelled Eos # (Auto) Cancelled Baso # (Auto) Cancelled Abs Immat Gran (auto) Cancelled Absolute Neuts (auto) Cancelled Absolute Nucleated RBC 0.000 Nucleated RBC % (auto) 0.0 Neutrophils % (Manual) 52 Band Neutrophils % 32 H Lymphocytes % (Manual) 7 L Monocytes % (Manual) 2 Eosinophils % (Manual) 1 Metamyelocytes % 3 Myelocytes % 3 Abs Neuts (Manual) 10.2 H Lymphocytes # (Manual) 0.9 L Monocytes # (Manual) 0.2 Eosinophils # (Manual) 0.1 Metamyelocytes # 0.4 Myelocytes # 0.4 Toxic Granulation PRESENT Toxic Vacuolation PRESENT Platelet Estimate DECREASED Large Platelets PRESENT Plt Morphology Comment NOTED RBC Morphology NOTED Polychromasia 1+ (0-2) Hypochromasia 1+ (5-14) Basophilic Stippling 1+ (0-2) Macrocytosis 1+ (5-14) Tear Drop Cells 1+ (0-2) Stomatocytes 1+ (5-14) VBG pH 7.60 H* VBG pCO2 28 VBG pO2 190 VBG HCO3 28 H VBG O2 Saturation 99.0 VBG Base Excess 7.4 Anion Gap 16 Estim Creat Clear Calc 58.7 Estimated GFR > 60 Random Glucose 78 Calcium 9.4 Phosphorus 3.0 Magnesium 2.0 Total Bilirubin 0.5 AST 91 H ALT 21 Alkaline Phosphatase 64 Total Protein 7.1 Albumin 2.9 L <Armida Morris PA-C - Last Filed: 09/01/24 08:09> Microbiology Microbiology Results: Microbiology 08/31/24 04:45 Blood Culture - Preliminary Blood - Venous No growth after 24 hours. 08/30/24 20:20 Blood Culture - Preliminary Blood - Venous No growth after 24 hours. <Armida Morris PA-C - Last Filed: 09/01/24 08:09> Procedures Date of Service Date of Service: 09/01/24 <Armida Morris PA-C - Last Filed: 09/01/24 08:09> 09/02/24 <Car Palmer MD - Last Filed: 09/02/24 08:09> Progress Note: A&P Assessment and plan (1) Partial small bowel obstruction: Status: Acute <Armida Morris PA-C - Last Filed: 09/01/24 08:09> Assessment and Plan: Still on low-dose pressor No reported vomiting Abdomen is soft and benign No obvious tenderness Being managed denies you for aspiration pneumonia Seen and examined independently Trial of clear liquids tomorrow with aspiration precaution <Car Palmer MD - Last Filed: 09/02/24 08:09> Assessment and Plan: Admitted with aspiration PNA, PSBO. Still no evidence of GI function and abdomen remains distended but softly. Keep NPO for now, PEG tube to low intermittent wall suction. On IV abx, pressors. Remainder of care per ICU team. <Armida Morris PA-C - Last Filed: 09/01/24 08:09> Time Spent With Patient Time: Total time managing care of this patient today ____ minutes. <Armida Morris PA-C - Last Filed: 09/01/24 08:09> Quality Stroke Does the patient have a stroke diagnosis?: No <Armida Morris PA-C - Last Filed: 09/01/24 08:09> VTE Prior VTE?: No <Armida Morris PA-C - Last Filed: 09/01/24 08:09> VTE Risk Level:: Medical - moderate - high <Armida Morris PA-C - Last Filed: 09/01/24 08:09> VTE Device Contraindication: N/A - Device Ordered <Armida Morris PA-C - Last Filed: 09/01/24 08:09> VTE Drug Contraindication: Treatment Not Indicated <Armida Morris PA-C - Last Filed: 09/01/24 08:09>
[2024-09-01 08:15] LABS: Venous Blood Gas Refer to POC result
[2024-09-01] MEDS: Albumin Human 25 % 100 ML IV ×3 (09:21→20:37)
[2024-09-01] MEDS: Dextrose 5 % and Lactated Ring 1,000 ML 100 ML IVCONT ×2 (09:21→17:54)
--- NOTE | 2024-09-01 09:54 | PM.CCPN ---
Subjective Subjective Date of Service: 09/01/24 Interval History: 69-year-old gentleman with underlying autism, developmental disorder, nonverbal at baseline, cool home resident, also OCD/bipolar, dysphagia status post that, seizures, prior SBO admitted on 08/31/2024 to telemetry service for aspiration pneumonia on a background of SBO with transition point. Evaluated by General surgery with plans for conservative management. Hospital course further significant for hypertension poorly responsive to initial IV fluid resuscitation requiring transfer to the intensive care unit for pressor support. No events overnight. Critical Care Time (minutes): 45 Physical Exam Vital Signs: Vital Signs: Last Vital Signs Temp 99.3 F 09/01/24 09:00 Pulse 81 09/01/24 09:00 Resp 15 09/01/24 09:00 BP 111/57 L 09/01/24 09:00 Pulse Ox 97 09/01/24 09:00 O2 Del Method Nasal Cannula 09/01/24 09:00 O2 Flow Rate 4 09/01/24 09:00 FiO2 35 09/01/24 05:45 Oxygen Flow Rate 3 08/30/24 19:39 BMI result Body Mass Index 30.1 Const: General: no acute distress, alert and awake Eyes: Sclerae: sclerae normal EOM: EOMs intact bilaterally Neck: Neck: Yes no lymphadenopathy, Yes trachea midline and Yes supple Resp: Effort & Inspection: normal respiratory effort and no respiratory distress Auscultation: clear to auscultation bilaterally Cardio: Rate: regular rate Rhythm: regular rhythm Heart sounds: no gallops, no murmurs and no rubs GI: Inspection: Yes G-tube present Palpation (GI): Soft to palpation and nontender Auscultation: Hypoactive bowel sounds present Extrem: General: Yes no pedal edema, No clubbing and No cyanosis Objective Data Labs 09/01/24 05:38 09/01/24 05:22 Labs: Laboratory Results - last 24 hr 09/01/24 09/01/24 09/01/24 05:22 05:28 05:38 WBC 12.2 H RBC 3.03 L Hgb 10.3 L Hct 29.6 L MCV 97.7 MCH 34.0 H MCHC 34.8 RDW 15.1 Plt Count 134 L MPV 10.1 Immature Gran % (Auto) Cancelled Neut % (Auto) Cancelled Lymph % (Auto) Cancelled [place] % (Auto) Cancelled Eos % (Auto) Cancelled Baso % (Auto) Cancelled Lymph # (Auto) Cancelled [place] # (Auto) Cancelled Eos # (Auto) Cancelled Baso # (Auto) Cancelled Abs Immat Gran (auto) Cancelled Absolute Neuts (auto) Cancelled Absolute Nucleated RBC 0.000 Nucleated RBC % (auto) 0.0 Neutrophils % (Manual) 52 Band Neutrophils % 32 H Lymphocytes % (Manual) 7 L Monocytes % (Manual) 2 Eosinophils % (Manual) 1 Metamyelocytes % 3 Myelocytes % 3 Abs Neuts (Manual) 10.2 H Lymphocytes # (Manual) 0.9 L Monocytes # (Manual) 0.2 Eosinophils # (Manual) 0.1 Metamyelocytes # 0.4 Myelocytes # 0.4 Toxic Granulation PRESENT Toxic Vacuolation PRESENT Platelet Estimate DECREASED Large Platelets PRESENT Plt Morphology Comment NOTED RBC Morphology NOTED Polychromasia 1+ (0-2) Hypochromasia 1+ (5-14) Basophilic Stippling 1+ (0-2) Macrocytosis 1+ (5-14) Tear Drop Cells 1+ (0-2) Stomatocytes 1+ (5-14) VBG pH 7.60 H* VBG pCO2 28 VBG pO2 190 VBG HCO3 28 H VBG O2 Saturation 99.0 VBG Base Excess 7.4 Sodium 145 Potassium 4.3 Chloride 109 H Carbon Dioxide 24 Anion Gap 16 BUN 18 H Creatinine 1.09 Estim Creat Clear Calc 58.7 Estimated GFR > 60 Random Glucose 78 Calcium 9.4 Phosphorus 3.0 Magnesium 2.0 Total Bilirubin 0.5 AST 91 H ALT 21 Alkaline Phosphatase 64 Total Protein 7.1 Albumin 2.9 L Microbiology Microbiology Results: Microbiology 08/31/24 04:45 Blood - Venous Blood Culture - Preliminary No growth after 24 hours. 08/30/24 20:20 Blood - Venous Blood Culture - Preliminary No growth after 24 hours. Progress Note: A&P Assessment and plan (1) Hypotension: Status: Acute (2) Bowel obstruction: Status: Acute (3) Seizures: Status: Acute (4) LINO (acute kidney injury): Status: Acute Plan Assessment: 69-year-old gentleman with underlying autism and developmental delay admitted with small-bowel obstruction further complicated by hypotension requiring pressor support. Plan: Neuro: No acute issues. Cardiac: Distributive shock, continue to titrate off pressor support as tolerated. Pulmonary: No acute issues. Renal: Acute renal failure on a background of fluid shifts with underlying small bowel obstruction. Non oliguric. Continue to monitor renal indices and urine output. Endo: No acute issues. GI: Small-bowel obstruction. General surgery service care appreciated. No plans for surgical intervention at this time. Continue with conservative therapy. ID: Likely aspiration pneumonitis component, continue on empiric Unasyn. Heme/Onc: No acute issues. Psych: No acute issues. Miscellaneous: No acute issues. Prophylaxis: Heparin Diet: NPO Critical care time spent: 45 minutes Quality Stroke Does the patient have a stroke diagnosis?: No VTE Prior VTE?: No VTE Risk Level:: Medical - moderate - high VTE Device Contraindication: N/A - Device Ordered VTE Drug Contraindication: Treatment Not Indicated
--- NOTE | 2024-09-01 14:23 | MHC.CM.PN ---
Addendum entered by Betzy Monk 09/01/24 14:25: Contact number for half-way: [phone] Original Note: Pt remains in ICU: on low dose pressors for BP support: Peg remains connected to low suction for SBO - no drainage noted. Pt is from a [facility]way and will be able to return via BLS when medically cleared. CM to follow
[2024-09-02] VITALS (19 sets, daily range): BP systolic 117–177; BP diastolic 42–92; PULSE 67–120; RESP 15–25; TEMP 36–36.6; O2SAT 1–99; BMI 31.2
[2024-09-02] MEDS: 0.9 % Sodium Chloride Flush 3 ML SYRINGE IVFLUSH ×4 (00:57→21:12)
[2024-09-02] MEDS: Albumin Human 25 % 100 ML IV (03:02)
[2024-09-02] MEDS: Dextrose 5 % and Lactated Ring 1,000 ML 100 ML IVCONT ×2 (03:34→14:52)
[2024-09-02] MEDS: Valproic Acid (as Sodium Salt) 500 MG in Dextrose 5 % 50 ML 55 MG IV ×3 (03:35→21:11)
[2024-09-02 05:29] LABS: VBG HCO3 31 mmol/L (22-26); VBG O2 % Saturation 96.0 %
[2024-09-02 05:33] LABS: MANUAL DIFF FLAG NO
[2024-09-02 05:33] LABS: Venous Blood Gas Refer to POC result
[2024-09-02 05:38] LABS: Hematocrit 27.1 % (42.0-52.0); Hemoglobin 9.1 g/dl (14.0-18.0); Imm Gran Abs Auto 0.22 X10*3/uL (0.00-0.03); Imm Gran Pct Auto 2.1 % (0.0-0.4); Lymphocytes Absolute Auto 1.4 X10*3/uL (1.2-4.9); Mean Corpuscular HGB Conc 33.6 g/dl (31.0-36.0); Mean Corpuscular Hemoglobin 32.9 pg (27.0-33.0); Mean Corpuscular Volume 97.8 fL (80.0-98.0); NRBC Abs Auto 0.000 X10*3/uL (0.0-0.012); NRBC Pct Auto 0.0 /100WBC (0.0-0.2); Platelet Count 105 X10*3/uL (160-400); Red Blood Count 2.77 X10*6/uL (4.60-5.80); White Blood Count 10.6 X10*3/uL (4.8-10.8)
[2024-09-02 05:48] LABS: Alanine Aminotransferase 14 U/L (0-40); Albumin Level 4.2 g/dL (3.5-5.0); Alkaline Phosphatase 48 U/L (39-117); Anion Gap 13 (12-20); Aspartate Amino Transferase 46 U/L (5-37); Blood Urea Nitrogen 14 mg/dL (9-16); Calcium 10.2 mg/dL (8.4-10.2); Carbon Dioxide 26 mmol/L (22-29); Chloride 113 mmol/L (96-108); Creatinine Clr Calc Pharmacy 72.0; Estimated Glomerular Filt Rate > 60; Magnesium 1.9 mg/dL (1.6-2.6); Potassium 3.4 mmol/L (3.3-5.1); Sodium 149 mmol/L (135-145); Total Protein 6.7 g/dL (6.5-8.0)
--- NOTE | 2024-09-02 07:35 | P.PNGS_ITS ---
Subjective Subjective Date of Service: 09/02/24 <Armida Morris PA-C - Last Filed: 09/02/24 07:43> 09/02/24 <Car Palmer MD - Last Filed: 09/02/24 08:10> Interval history: Resting comfortably in bed. long term staff at bedside report patient is strictly NPO at the home and only on tube feeds. Now off pressors. <Armida Morris PA-C - Last Filed: 09/02/24 07:43> Physical Exam 2 Vital Signs: Vital Signs: Last Vital Signs Temp 96.9 F 09/02/24 03:52 Pulse 84 09/02/24 07:00 Resp 15 09/02/24 07:00 BP 140/78 H 09/02/24 07:00 Pulse Ox 99 09/02/24 07:00 O2 Del Method Nasal Cannula 09/02/24 07:00 O2 Flow Rate 3 09/02/24 07:00 FiO2 35 09/01/24 05:45 Oxygen Flow Rate 3 08/30/24 19:39 BMI result Body Mass Index 31.2 <Armida Morris PA-C - Last Filed: 09/02/24 07:43> Const: General: comfortable, no acute distress and alert <HERMAN An Last Filed: 09/02/24 07:43> Orientation/consciousness: patient oriented x3 <Armida Morris PA-C - Last Filed: 09/02/24 07:43> Resp: Effort & Inspection: normal respiratory effort <HERMAN An Last Filed: 09/02/24 07:43> GI: Other: abd remains soft, distended voluntary guarding <Armida Morris PA-C - Last Filed: 09/02/24 07:43> Skin: General skin exam: no rashes or lesions noted <HERMAN An Last Filed: 09/02/24 07:43> Neuro: General: patient oriented x3 and moves all extremities <HERMAN An Last Filed: 09/02/24 07:43> Objective Data Active Medications Hydromorphone HCl (Hydromorphone Hcl 0.5 Mg/0.5 Ml Syringe) 0.5 mg IVPUSH Q4H PRN; Protocol PRN Reason: Pain, Moderate(Pain Scale 4-6) Last Admin: 09/01/24 05:17 Dose: 0.5 mg Documented By: RAINA Ampicillin Sodium/Sulbactam (Sodium 3 gm/ Sodium Chloride) 100 mls @ 200 mls/hr IV Q6H [facility] Last Infusion: 09/02/24 07:12 Dose: Infused Documented By: JOSHUA Norepinephrine Bitartrate (Levophed) 8 mg in 250 mls @ 0 mls/hr IVCONT .Q0M [facility]; Protocol Last Titration: 09/02/24 03:58 Dose: Infused Documented By: DENISE Valproic Acid 500 mg/ Dextrose 55 mls @ 55 mls/hr IV Q8H [facility] Last Infusion: 09/02/24 04:54 Dose: Infused Documented By: DENISE Dextrose/Lactated Ringer's (D5lr) 1,000 mls @ 100 mls/hr IVCONT .Q10H [facility] Last Admin: 09/02/24 03:34 Dose: 100 mls/hr Documented By: DENISE Potassium Phosphate (Kphos) 15 mmol in 250 mls @ 62.5 mls/hr IV Q4H [facility] Stop: 09/02/24 15:59 Sodium Chloride (0.9 % Sodium Chloride Flush 3 Ml Syringe) 3 ml IVFLUSH QSHIFT [facility] Last Admin: 09/02/24 00:57 Dose: 3 ml Documented By: DENISE <Armida Morris PA-C - Last Filed: 09/02/24 07:43> Labs CBC & Chem 7: 09/02/24 05:19 09/02/24 05:19 <Armida Morris PA-C - Last Filed: 09/02/24 07:43> Labs: Laboratory Results - last 24 hr 09/02/24 09/02/24 05:19 05:22 MCV 97.8 MCH 32.9 MCHC 33.6 RDW 14.9 Plt Count 105 L MPV 10.3 Immature Gran % (Auto) 2.1 H Neut % (Auto) 78.1 H Lymph % (Auto) 12.8 L [place] % (Auto) 6.6 Eos % (Auto) 0.1 Baso % (Auto) 0.3 Lymph # (Auto) 1.4 [place] # (Auto) 0.7 Eos # (Auto) 0.0 Baso # (Auto) 0.0 Abs Immat Gran (auto) 0.22 H Absolute Neuts (auto) 8.3 Absolute Nucleated RBC 0.000 Nucleated RBC % (auto) 0.0 VBG pH 7.55 H VBG pCO2 35 VBG pO2 68 VBG HCO3 31 H VBG O2 Saturation 96.0 VBG Base Excess 9.3 Anion Gap 13 Estim Creat Clear Calc 72.0 Estimated GFR > 60 Random Glucose 85 Calcium 10.2 D Phosphorus 1.8 L Magnesium 1.9 Total Bilirubin 0.6 AST 46 H ALT 14 Alkaline Phosphatase 48 Total Protein 6.7 Albumin 4.2 <Armida Morris PA-C - Last Filed: 09/02/24 07:43> Microbiology Microbiology Results: Microbiology 08/30/24 20:20 Blood Culture - Preliminary Blood - Venous No growth after 48 hours. 08/31/24 04:45 Blood Culture - Preliminary Blood - Venous No growth after 24 hours. <Armida Morris PA-C - Last Filed: 09/02/24 07:43> Procedures Date of Service Date of Service: 09/02/24 <Armida Morris PA-C - Last Filed: 09/02/24 07:43> 09/02/24 <Car Palmer MD - Last Filed: 09/02/24 08:10> Progress Note: A&P Assessment and plan (1) Partial small bowel obstruction: Status: Acute <Armida Morris PA-C - Last Filed: 09/02/24 07:43> Assessment and Plan: Now off pressors No events overnight No significant output from the PEG tube with suction Abdomen is soft We will follow closely Re-evaluate tomorrow see if he may be ready to restart feeds Overall much improved Seen and examined independently <Car Palmer MD - Last Filed: 09/02/24 08:10> Assessment and Plan: Admitted with aspiration PNA, PSBO. Still no evidence of GI function and abdomen remains distended but softly. Await return of GI function. Keep PEG tube to suction for now. Off pressors. Remainder of care per ICU team, medicine. < Armida Morris PA-C - Last Filed: 09/02/24 07:43> Time Spent With Patient Time: Total time managing care of this patient today ____ minutes. <Armida Morris PA-C - Last Filed: 09/02/24 07:43> Quality Stroke Does the patient have a stroke diagnosis?: No <Armida Morris PA-C - Last Filed: 09/02/24 07:43> VTE Prior VTE?: No <Armida Morris PA-C - Last Filed: 09/02/24 07:43> VTE Risk Level:: Medical - moderate - high <Armida Morris PA-C - Last Filed: 09/02/24 07:43> VTE Device Contraindication: N/A - Device Ordered <Armida Morris PA-C - Last Filed: 09/02/24 07:43> VTE Drug Contraindication: Treatment Not Indicated <Armida Morris PA-C - Last Filed: 09/02/24 07:43>
[2024-09-02] MEDS: Potassium Phosphate/NS 15 MMOL/250 ML PLAST..BAG 62.5 MMOL IV ×2 (07:37→13:16)
--- NOTE | 2024-09-02 09:58 | PM.CCPN ---
Subjective Subjective Date of Service: 09/02/24 Interval History: 69-year-old gentleman with underlying autism, developmental disorder, nonverbal at baseline, cool home resident, also OCD/bipolar, dysphagia status post that, seizures, prior SBO admitted on 08/31/2024 to telemetry service for aspiration pneumonia on a background of SBO with transition point. Evaluated by General surgery with plans for conservative management. Hospital course further significant for hypertension poorly responsive to initial IV fluid resuscitation requiring transfer to the intensive care unit for pressor support. No events overnight. Titrated off pressor support. LINO improved. Critical Care Time (minutes): 0 Physical Exam Vital Signs: Vital Signs: Last Vital Signs Temp 96.9 F 09/02/24 03:52 Pulse 81 09/02/24 09:00 Resp 18 09/02/24 09:00 BP 122/64 09/02/24 09:00 Pulse Ox 95 09/02/24 09:00 O2 Del Method Nasal Cannula 09/02/24 09:00 O2 Flow Rate 3 09/02/24 09:00 FiO2 35 09/01/24 05:45 Oxygen Flow Rate 3 08/30/24 19:39 BMI result Body Mass Index 31.2 Const: General: no acute distress, alert and awake Eyes: Sclerae: sclerae normal EOM: EOMs intact bilaterally Neck: Neck: Yes no lymphadenopathy, Yes trachea midline and Yes supple Resp: Effort & Inspection: normal respiratory effort and no respiratory distress Auscultation: clear to auscultation bilaterally Cardio: Rate: tachycardic Rhythm: regular rhythm Heart sounds: no gallops, no murmurs and no rubs GI: Inspection: Yes G-tube present Palpation (GI): Soft to palpation and Other GI palpation findings present ( Nontender) Auscultation: Hypoactive bowel sounds present Extrem: General: Yes no pedal edema, No clubbing and No cyanosis Objective Data Labs 09/02/24 05:19 09/02/24 05:19 Labs: Laboratory Results - last 24 hr 09/02/24 09/02/24 05:19 05:22 WBC 10.6 RBC 2.77 L Hgb 9.1 L Hct 27.1 L MCV 97.8 MCH 32.9 MCHC 33.6 RDW 14.9 Plt Count 105 L MPV 10.3 Immature Gran % (Auto) 2.1 H Neut % (Auto) 78.1 H Lymph % (Auto) 12.8 L [place] % (Auto) 6.6 Eos % (Auto) 0.1 Baso % (Auto) 0.3 Lymph # (Auto) 1.4 [place] # (Auto) 0.7 Eos # (Auto) 0.0 Baso # (Auto) 0.0 Abs Immat Gran (auto) 0.22 H Absolute Neuts (auto) 8.3 Absolute Nucleated RBC 0.000 Nucleated RBC % (auto) 0.0 VBG pH 7.55 H VBG pCO2 35 VBG pO2 68 VBG HCO3 31 H VBG O2 Saturation 96.0 VBG Base Excess 9.3 Sodium 149 H Potassium 3.4 D Chloride 113 H Carbon Dioxide 26 Anion Gap 13 BUN 14 Creatinine 0.89 Estim Creat Clear Calc 72.0 Estimated GFR > 60 Random Glucose 85 Calcium 10.2 D Phosphorus 1.8 L Magnesium 1.9 Total Bilirubin 0.6 AST 46 H ALT 14 Alkaline Phosphatase 48 Total Protein 6.7 Albumin 4.2 Microbiology Microbiology Results: Microbiology 08/31/24 04:45 Blood - Venous Blood Culture - Preliminary No growth after 48 hours. 08/30/24 20:20 Blood - Venous Blood Culture - Preliminary No growth after 48 hours. Progress Note: A&P Assessment and plan (1) Bowel obstruction: Status: Acute Plan Assessment: 69-year-old gentleman with underlying autism and developmental delay admitted with small-bowel obstruction further complicated by hypotension requiring pressor support. Plan: Neuro: No acute issues. Cardiac: Distributive shock, resolved, titrated off PET support. Pulmonary: No acute issues. Renal: Acute renal failure on a background of fluid shifts with underlying small bowel obstruction, resolved. Non oliguric. Continue to monitor renal indices and urine output. Endo: No acute issues. GI: Small-bowel obstruction. General surgery service care appreciated. No plans for surgical intervention at this time. Continue with conservative therapy. ID: Likely aspiration pneumonitis component, continue on empiric Unasyn. Heme/Onc: No acute issues. Psych: No acute issues. Miscellaneous: No acute issues. Prophylaxis: Heparin Diet: NPO Quality Stroke Does the patient have a stroke diagnosis?: No VTE Prior VTE?: No VTE Risk Level:: Medical - moderate - high VTE Device Contraindication: N/A - Device Ordered VTE Drug Contraindication: Treatment Not Indicated
--- NOTE | 2024-09-02 10:48 | MHC.CM.PN ---
Patient remains in ICU. Per Dr Jolley will transfer to Med-surg today. Anticipate return to [facility] when medically stable. Continue to monitor for d/c needs.
--- NOTE | 2024-09-02 10:50 | MHC.CLN ---
F/U PT IS DAY 3 NPO PT WITH PEG TUBE CURRENTLY ON SUCTION IF TF TO RE-START; RECOMMEND GLUCERNA 1.2 AT MAX GOAL RATE 50ML/HR WITH 240ML FREE WATER FLSUHES Q 6HRS TO PROVIDE 1440KCALS (23KCALS/KG), 72G PROTEIN (1.1G/KG), 1926ML TOTAL FREE WATER FROM FORMULA AND FLUSHES (30ML/KG) MONITOR TOLERANCE AND LYTES FOLLOWING FOR DIET ADVANCEMENT
[2024-09-03] MEDS: Dextrose 5 % and Lactated Ring 1,000 ML 100 ML IVCONT (01:13)
[2024-09-03 04:00] VITALS: BP 130/60; PULSE 76; RESP 18; TEMP 36.7; O2SAT 96
[2024-09-03] MEDS: Valproic Acid (as Sodium Salt) 500 MG in Dextrose 5 % 50 ML 55 MG IV ×3 (05:33→20:00)
[2024-09-03 07:04] LABS: MANUAL DIFF FLAG NO
[2024-09-03 07:16] LABS: Hematocrit 31.1 % (42.0-52.0); Hemoglobin 10.3 g/dl (14.0-18.0); Imm Gran Abs Auto 0.05 X10*3/uL (0.00-0.03); Imm Gran Pct Auto 0.6 % (0.0-0.4); Lymphocytes Absolute Auto 1.5 X10*3/uL (1.2-4.9); Mean Corpuscular HGB Conc 33.1 g/dl (31.0-36.0); Mean Corpuscular Hemoglobin 32.9 pg (27.0-33.0); Mean Corpuscular Volume 99.4 fL (80.0-98.0); NRBC Abs Auto 0.000 X10*3/uL (0.0-0.012); NRBC Pct Auto 0.0 /100WBC (0.0-0.2); Platelet Count 113 X10*3/uL (160-400); Red Blood Count 3.13 X10*6/uL (4.60-5.80); White Blood Count 8.3 X10*3/uL (4.8-10.8)
[2024-09-03 07:34] VITALS: BP 128/69; PULSE 68; RESP 16; TEMP 37.6; O2SAT 98
[2024-09-03 07:35] LABS: Albumin Level 3.5 g/dL (3.5-5.0); Anion Gap 11 (12-20); Blood Urea Nitrogen 16 mg/dL (9-16); Calcium 9.3 mg/dL (8.4-10.2); Carbon Dioxide 27 mmol/L (22-29); Chloride 116 mmol/L (96-108); Creatinine Clr Calc Pharmacy 78.5; Estimated Glomerular Filt Rate > 60; Magnesium 1.7 mg/dL (1.6-2.6); Potassium 3.3 mmol/L (3.3-5.1); Sodium 151 mmol/L (135-145)
--- NOTE | 2024-09-03 07:57 | PM.PNGS ---
Subjective Subjective Date of Service: 09/03/24 Interval history: Transferred to telemetry yesterday As per ICU staff, had BMs yesterday No events reported No significant output from PEG tube Physical Exam Vital Signs: Vital Signs: Last Vital Signs Temp 99.6 F 09/03/24 07:34 Pulse 68 09/03/24 07:34 Resp 16 09/03/24 07:34 BP 128/69 09/03/24 07:34 Pulse Ox 98 09/03/24 07:34 O2 Del Method Nasal Cannula 09/03/24 07:34 O2 Flow Rate 1 09/03/24 07:34 FiO2 35 09/01/24 05:45 Oxygen Flow Rate 3 08/30/24 19:39 BMI result Body Mass Index 31.2 Const: Other: Nonverbal General: no acute distress Resp: Effort & Inspection: normal respiratory effort Cardio: Rate: regular rate GI: Palpation (GI): Soft to palpation Objective Data Active Medications Hydromorphone HCl (Hydromorphone Hcl 0.5 Mg/0.5 Ml Syringe) 0.5 mg IVPUSH Q4H PRN; Protocol PRN Reason: Pain, Moderate(Pain Scale 4-6) Last Admin: 09/01/24 05:17 Dose: 0.5 mg Documented By: SUPPLEK Ampicillin Sodium/Sulbactam (Sodium 3 gm/ Sodium Chloride) 100 mls @ 200 mls/hr IV Q6H [facility] Last Infusion: 09/03/24 07:45 Dose: Infused Documented By: RICCIAV Valproic Acid 500 mg/ Dextrose 55 mls @ 55 mls/hr IV Q8H [facility] Last Infusion: 09/03/24 06:22 Dose: Infused Documented By: ANTOIC Dextrose (D5w) 1,000 mls @ 125 mls/hr IVCONT .Q8H [facility] Sodium Chloride (0.9 % Sodium Chloride Flush 3 Ml Syringe) 3 ml IVFLUSH QSHIFT [facility] Last Admin: 09/02/24 21:12 Dose: 3 ml Documented By: KATHY Labs 09/03/24 06:45 09/03/24 06:45 Labs: Laboratory Results - last 24 hr 09/03/24 06:45 MCV 99.4 H MCH 32.9 MCHC 33.1 RDW 15.2 Plt Count 113 L MPV 10.4 Immature Gran % (Auto) 0.6 H Neut % (Auto) 72.3 Lymph % (Auto) 18.4 L [place] % (Auto) 7.5 Eos % (Auto) 0.6 Baso % (Auto) 0.6 Lymph # (Auto) 1.5 [place] # (Auto) 0.6 Eos # (Auto) 0.1 Baso # (Auto) 0.1 Abs Immat Gran (auto) 0.05 H Absolute Neuts (auto) 6.0 Absolute Nucleated RBC 0.000 Nucleated RBC % (auto) 0.0 Anion Gap 11 L Estim Creat Clear Calc 78.5 Estimated GFR > 60 Random Glucose 80 Calcium 9.3 D Phosphorus 3.7 Magnesium 1.7 Albumin 3.5 Microbiology Microbiology Results: Microbiology 08/31/24 04:45 Blood Culture - Preliminary Blood - Venous No growth after 48 hours. Procedures Date of Service Date of Service: 09/03/24 Progress Note: A&P Assessment and plan (1) Partial small bowel obstruction: Status: Acute Assessment and Plan: No reported vomiting No significant output from the PEG tube Okay to try low-dose feed and check residuals never few hours Hold feeds if with vomiting or high residuals Treat pneumonia We will follow Time Spent With Patient Time: Total time managing care of this patient today ____ minutes. Quality Stroke Does the patient have a stroke diagnosis?: No VTE Prior VTE?: No VTE Risk Level:: Medical - moderate - high VTE Device Contraindication: N/A - Device Ordered VTE Drug Contraindication: Treatment Not Indicated
[2024-09-03] MEDS: 0.9 % Sodium Chloride Flush 3 ML SYRINGE IVFLUSH ×2 (09:18→17:13)
--- NOTE | 2024-09-03 10:07 | MHC.CLN ---
F/U PT IS DAY [address] DE PAZ; CAN START LOW RATE TUBE FEEDING AND MONITOR CLOSELY FOR TOLERANCE RECOMMEND GLUCERNA 1.2 AT 20ML/HR TO PROVIDE 576KCALS, 29G PROTEIN, 386ML TOTAL FREE WATER FROM FORMULA MONITOR TOLERANCE AND CHECK RESIDUALS PER MD IF PT TOLERATES TRICKLE FEED; RECOMMEND ADVANCING TO GLUCERNA 1.2 AT MAX GOAL RATE 50ML/HR WITH 240ML FREE WATER FLUSHES Q 6HRS TO PROVIDE 1440KCALS (23KCALS/KG), 72G PROTEIN (1.1G/KG), 1926ML TOTAL FREE WATER FROM FORMULA AND FLUSHES (30ML/KG) MONITOR TOLERANCE AND LYTES
--- NOTE | 2024-09-03 10:20 | P.PNIM_ITS ---
Subjective Subjective Date of Service: 09/03/24 Review of Systems Review of Systems: Yes Unobtainable due to mental status Physical Exam 2 Vital Signs: Vital Signs: Last Vital Signs Temp 99.6 F 09/03/24 07:34 Pulse 68 09/03/24 07:34 Resp 16 09/03/24 07:34 BP 128/69 09/03/24 07:34 Pulse Ox 98 09/03/24 07:34 O2 Del Method Nasal Cannula 09/03/24 07:34 O2 Flow Rate 1 09/03/24 07:34 FiO2 35 09/01/24 05:45 Oxygen Flow Rate 3 08/30/24 19:39 BMI result Body Mass Index 31.2 Const: Other: Nonverbal General: no acute distress Resp: Effort & Inspection: normal respiratory effort Cardio: Rate: regular rate GI: Palpation (GI): Soft to palpation Objective Data Active Medications Hydromorphone HCl (Hydromorphone Hcl 0.5 Mg/0.5 Ml Syringe) 0.5 mg IVPUSH Q4H PRN; Protocol PRN Reason: Pain, Moderate(Pain Scale 4-6) Last Admin: 09/01/24 05:17 Dose: 0.5 mg Documented By: SUPPLEK Ampicillin Sodium/Sulbactam (Sodium 3 gm/ Sodium Chloride) 100 mls @ 200 mls/hr IV Q6H [facility] Last Infusion: 09/03/24 07:45 Dose: Infused Documented By: HUGH Valproic Acid 500 mg/ Dextrose 55 mls @ 55 mls/hr IV Q8H [facility] Last Infusion: 09/03/24 06:22 Dose: Infused Documented By: ANTOIC Dextrose (D5w) 1,000 mls @ 125 mls/hr IVCONT .Q8H [facility] Last Admin: 09/03/24 09:18 Dose: 125 mls/hr Documented By: RICCIAV Sodium Chloride (0.9 % Sodium Chloride Flush 3 Ml Syringe) 3 ml IVFLUSH QSHIFT [facility] Last Admin: 09/03/24 09:18 Dose: 3 ml Documented By: RICCIAV Labs 09/03/24 06:45 09/03/24 06:45 Labs: Laboratory Results - last 24 hr 09/03/24 06:45 MCV 99.4 H MCH 32.9 MCHC 33.1 RDW 15.2 Plt Count 113 L MPV 10.4 Immature Gran % (Auto) 0.6 H Neut % (Auto) 72.3 Lymph % (Auto) 18.4 L [place] % (Auto) 7.5 Eos % (Auto) 0.6 Baso % (Auto) 0.6 Lymph # (Auto) 1.5 [place] # (Auto) 0.6 Eos # (Auto) 0.1 Baso # (Auto) 0.1 Abs Immat Gran (auto) 0.05 H Absolute Neuts (auto) 6.0 Absolute Nucleated RBC 0.000 Nucleated RBC % (auto) 0.0 Anion Gap 11 L Estim Creat Clear Calc 78.5 Estimated GFR > 60 Random Glucose 80 Calcium 9.3 D Phosphorus 3.7 Magnesium 1.7 Albumin 3.5 Microbiology Microbiology Results: Microbiology 08/31/24 04:45 Blood Culture - Preliminary Blood - Venous No growth after 48 hours. Assessment and Plan (1) Partial small bowel obstruction: Status: Acute Plan 69M PMH non verbal [facility], recurrent aspiration s/p gtube, history of SBO, epilepsy, bipolar, nephrogenic DI, htn, presented with hypoxia and aspiraiton pneumonia on 08/30/24 as well as partial SBO, course complicated by septic shock and Edward requiring icu transfer 08/31/24 for vasopressors, now off pressors, downgraded 09/02/24 septic shock, acute hypoxic respiratory failure due to aspiratoin pneumonia resolved continue unasyn npo partial SBO had small bm, surgery following, will try low dose feeds nephrogenic DI d5w, monitor edward resolved epilepsy depakote dvt prophylaxis- lovenox full code reason for continued hospitalization: awaiting tolerance of feeds Quality Stroke Does the patient have a stroke diagnosis?: No VTE Prior VTE?: No VTE Risk Level:: Medical - moderate - high VTE Device Contraindication: N/A - Device Ordered VTE Drug Contraindication: Treatment Not Indicated
[2024-09-03 10:56] VITALS: BP 131/69; PULSE 68; RESP 18; TEMP 37.1; O2SAT 96
[2024-09-03 13:00] VITALS: BMI 33.7
[2024-09-03 15:13] VITALS: BP 126/59; PULSE 71; RESP 18; TEMP 36.2; O2SAT 95
[2024-09-03 19:16] VITALS: BP 115/69; PULSE 77; RESP 18; TEMP 36.1; O2SAT 97
[2024-09-03 23:59] VITALS: BP 117/57; PULSE 57; RESP 18; TEMP 36.2; O2SAT 94
[2024-09-04] MEDS: Valproic Acid (as Sodium Salt) 500 MG in Dextrose 5 % 50 ML 55 MG IV (03:16)
[2024-09-04 03:45] VITALS: BP 134/69; PULSE 74; RESP 16; TEMP 36.2; O2SAT 92
[2024-09-04 06:00] VITALS: BMI 30.8
[2024-09-04 07:17] LABS: Hematocrit 30.8 % (42.0-52.0); Hemoglobin 10.4 g/dl (14.0-18.0); Mean Corpuscular HGB Conc 33.8 g/dl (31.0-36.0); Mean Corpuscular Hemoglobin 33.0 pg (27.0-33.0); Mean Corpuscular Volume 97.8 fL (80.0-98.0); NRBC Abs Auto 0.000 X10*3/uL (0.0-0.012); NRBC Pct Auto 0.0 /100WBC (0.0-0.2); PLT CLUMP 1; Red Blood Count 3.15 X10*6/uL (4.60-5.80)
--- NOTE | 2024-09-04 07:17 | PM.PNGS ---
Subjective Subjective Date of Service: 09/04/24 <Armida Morris PA-C - Last Filed: 09/04/24 07:20> 09/04/24 <Car Palmer MD - Last Filed: 09/04/24 10:45> Interval history: Tolerated trickle feeds yesterday without vomiting, no residuals per overnight RN. <Armida Morris PA-C - Last Filed: 09/04/24 07:20> Physical Exam Vital Signs: Vital Signs: Last Vital Signs Temp 97.2 F 09/04/24 03:45 Pulse 74 09/04/24 03:45 Resp 16 09/04/24 03:45 BP 134/69 09/04/24 03:45 Pulse Ox 92 09/04/24 03:45 O2 Del Method Room Air 09/04/24 03:45 O2 Flow Rate 1 09/03/24 07:34 FiO2 35 09/01/24 05:45 Oxygen Flow Rate 3 08/30/24 19:39 BMI result Body Mass Index 30.8 <Armida Morris PA-C - Last Filed: 09/04/24 07:20> Const: General: comfortable and no acute distress <Armida Morris PA-C - Last Filed: 09/04/24 07:20> GI: Other: protuberant abdomen, remains slightly distended but soft tube feeds running, PEG tube in place <HERMAN An Last Filed: 09/04/24 07:20> Objective Data Active Medications Enoxaparin Sodium (Enoxaparin Sodium 40 Mg/0.4 Ml Syringe) 40 mg SUBCUT Q24H [facility] Hydromorphone HCl (Hydromorphone Hcl 0.5 Mg/0.5 Ml Syringe) 0.5 mg IVPUSH Q4H PRN; Protocol PRN Reason: Pain, Moderate(Pain Scale 4-6) Last Admin: 09/01/24 05:17 Dose: 0.5 mg Documented By: SUPPLEK Ampicillin Sodium/Sulbactam (Sodium 3 gm/ Sodium Chloride) 100 mls @ 200 mls/hr IV Q6H [facility] Last Infusion: 09/04/24 06:37 Dose: Infused Documented By: ANTOIC Valproic Acid 500 mg/ Dextrose 55 mls @ 55 mls/hr IV Q8H [facility] Last Infusion: 09/04/24 04:22 Dose: Infused Documented By: HUMBLE Dextrose (D5w) 1,000 mls @ 125 mls/hr IVCONT .Q8H [facility] Last Admin: 09/04/24 00:11 Dose: 125 mls/hr Documented By: HUMBLE Sodium Chloride (0.9 % Sodium Chloride Flush 3 Ml Syringe) 3 ml IVFLUSH QSHIFT [facility] Last Admin: 09/03/24 23:35 Dose: Not Given Documented By: HUMBLE Non-Admin Reason: IV Running <Armida Morris PA-C - Last Filed: 09/04/24 07:20> Labs CBC & Chem 7: 09/04/24 06:40 09/04/24 06:40 <Armida Morris PA-C - Last Filed: 09/04/24 07:20> Labs: Laboratory Results - last 24 hr 09/03/24 06:45 Anion Gap 11 L Estim Creat Clear Calc 78.5 Estimated GFR > 60 Random Glucose 80 Calcium 9.3 D Phosphorus 3.7 Magnesium 1.7 Albumin 3.5 <Armida Morris PA-C - Last Filed: 09/04/24 07:20> Procedures Date of Service Date of Service: 09/04/24 <Armida Morris PA-C - Last Filed: 09/04/24 07:20> 09/04/24 <Car Palmer MD - Last Filed: 09/04/24 10:45> Progress Note: A&P Assessment and plan (1) Partial small bowel obstruction: Status: Acute <Armida Morris PA-C - Last Filed: 09/04/24 07:20> Assessment and Plan: Looks comfortable No events overnight No reported vomiting Abdomen is soft and benign Tolerating PEG tube feeds at 20 cc Okay to advance rate of PEG tube feeds slowly Check residuals periodically Clinically not obstructed at this time Seen and examined independently <Car Palmer MD - Last Filed: 09/04/24 10:45> Assessment and Plan: SBO appears resolved, now with bowel movements. Trickle feeds initiated yesterday, tolerating without residuals and vomiting. Abd remains benign, soft. Can increase tube feeds per nutrition recommendations. <Armida Morris PA-C - Last Filed: 09/04/24 07:20> Time Spent With Patient Time: Total time managing care of this patient today ____ minutes. <Armida Morris PA-C - Last Filed: 09/04/24 07:20> Quality Stroke Does the patient have a stroke diagnosis?: No <Armida Morris PA-C - Last Filed: 09/04/24 07:20> VTE Prior VTE?: No <Armida Morris PA-C - Last Filed: 09/04/24 07:20> VTE Risk Level:: Medical - moderate - high <Armida Morris PA-C - Last Filed: 09/04/24 07:20> VTE Device Contraindication: N/A - Device Ordered <Armida Morris PA-C - Last Filed: 09/04/24 07:20> VTE Drug Contraindication: Treatment Not Indicated <Armida Morris PA-C - Last Filed: 09/04/24 07:20>
[2024-09-04 07:29] VITALS: BP 112/55; PULSE 70; RESP 16; TEMP 36.1; O2SAT 96
[2024-09-04 07:34] LABS: Anion Gap 13 (12-20); Blood Urea Nitrogen 16 mg/dL (9-16); Calcium 8.8 mg/dL (8.4-10.2); Carbon Dioxide 23 mmol/L (22-29); Chloride 110 mmol/L (96-108); Creatinine Clr Calc Pharmacy 85.2; Estimated Glomerular Filt Rate > 60; Potassium 2.9 mmol/L (3.3-5.1); Sodium 143 mmol/L (135-145)
[2024-09-04 07:53] LABS: Platelet Count 109 X10*3/uL (160-400); White Blood Count 4.8 X10*3/uL (4.8-10.8)
[2024-09-04] MEDS: Potassium Chloride/H20 10 MEQ/100 ML PIGGYBACK 100 MEQ IV ×4 (07:58→12:01)
[2024-09-04] MEDS: 0.9 % Sodium Chloride Flush 3 ML SYRINGE IVFLUSH ×3 (08:01→20:53)
--- NOTE | 2024-09-04 09:34 | P.PNIM_ITS ---
Subjective Subjective Date of Service: 09/04/24 Interval History: small BM Physical Exam 2 Vital Signs: Vital Signs: Last Vital Signs Temp 97.0 F 09/04/24 07:29 Pulse 70 09/04/24 07:29 Resp 16 09/04/24 07:29 BP 112/55 L 09/04/24 07:29 Pulse Ox 96 09/04/24 07:29 O2 Del Method Room Air 09/04/24 07:29 O2 Flow Rate 1 09/03/24 07:34 FiO2 35 09/01/24 05:45 Oxygen Flow Rate 3 08/30/24 19:39 BMI result Body Mass Index 30.8 Const: General: comfortable and no acute distress GI: Other: protuberant abdomen, remains slightly distended but soft tube feeds running, PEG tube in place Objective Data Active Medications Docusate Sodium (Docusate Sodium 100 Mg/10 Ml Liquid) 100 mg G-TUBE BEDTIME RODOLFO Enoxaparin Sodium (Enoxaparin Sodium 40 Mg/0.4 Ml Syringe) 40 mg SUBCUT Q24H [facility] Escitalopram Oxalate (Escitalopram Oxalate 20 Mg Tablet) 40 mg G-TUBE DAILY RODOLFO Escitalopram Oxalate (Escitalopram Oxalate 10 Mg Tablet) 10 mg G-TUBE DAILY RODOLFO Hydromorphone HCl (Hydromorphone Hcl 0.5 Mg/0.5 Ml Syringe) 0.5 mg IVPUSH Q4H PRN; Protocol PRN Reason: Pain, Moderate(Pain Scale 4-6) Last Admin: 09/01/24 05:17 Dose: 0.5 mg Documented By: RAINA Ampicillin Sodium/Sulbactam (Sodium 3 gm/ Sodium Chloride) 100 mls @ 200 mls/hr IV Q6H [facility] Last Infusion: 09/04/24 06:37 Dose: Infused Documented By: ANTOIC Dextrose (D5w) 1,000 mls @ 125 mls/hr IVCONT .Q8H [facility] Last Admin: 09/04/24 07:55 Dose: 125 mls/hr Documented By: JAZMIN Potassium Chloride (Potassium Chloride/H20) 10 meq in 100 mls @ 100 mls/hr IV Q1H [facility] Stop: 09/04/24 11:59 Last Admin: 09/04/24 09:18 Dose: 100 mls/hr Documented By: JAZMIN Magnesium Hydroxide (Milk Of Magnesia 30 Ml Oral.Susp) 30 ml G-TUBE DAILY PRN PRN Reason: Constipation Olanzapine (Olanzapine 10 Mg Tablet) 10 mg G-TUBE DAILY [facility] Olanzapine (Olanzapine 10 Mg Tablet) 20 mg G-TUBE BEDTIME [facility] Sodium Chloride (0.9 % Sodium Chloride Flush 3 Ml Syringe) 3 ml IVFLUSH QSHIFT [facility] Last Admin: 09/04/24 08:01 Dose: 3 ml Documented By: JAZMIN Valproic Acid (Valproic Acid Liquid 250 Mg/5 Ml Solution) 1,000 mg G-TUBE BID@0800,1999 [facility] Labs 09/04/24 06:40 09/04/24 06:40 Labs: Laboratory Results - last 24 hr 09/04/24 06:40 MCV 97.8 MCH 33.0 MCHC 33.8 RDW 15.0 Plt Count 109 L MPV 10.3 Absolute Nucleated RBC 0.000 Nucleated RBC % (auto) 0.0 Anion Gap 13 Estim Creat Clear Calc 85.2 Estimated GFR > 60 Random Glucose 79 Calcium 8.8 Assessment and Plan (1) Partial small bowel obstruction: Status: Acute Plan 69M PMH non verbal autism 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 skilled nursing, recurrent aspiration s/p gtube, history of SBO, epilepsy, bipolar, nephrogenic DI, htn, presented with hypoxia and aspiraiton pneumonia on 08/30/24 as well as partial SBO, course complicated by septic shock and Edward requiring icu transfer 08/31/24 for vasopressors, now off pressors, downgraded 09/02/24 septic shock, acute hypoxic respiratory failure due to aspiration pneumonia resolved continue unasyn npo partial SBO had small bm, surgery following, slowly advancing feeds nephrogenic DI improved with d5w will dc, monitor edward resolved epilepsy depakote dvt prophylaxis- lovenox full code reason for continued hospitalization: awaiting tolerance of feeds Quality Stroke Does the patient have a stroke diagnosis?: No VTE Prior VTE?: No VTE Risk Level:: Medical - moderate - high VTE Device Contraindication: N/A - Device Ordered VTE Drug Contraindication: Treatment Not Indicated
--- NOTE | 2024-09-04 10:32 | MHC.CM.PN ---
Per ROUNDS discussion, Patient is not yet medically cleared for dc (not yet toleration PO): returning to the Nursing Home is the goal and CM will continue to follow.
--- NOTE | 2024-09-04 11:28 | MHC.CLN ---
F/U PT TOLERATED TRICKLE FEEDING YESTERDAY WITH NO RESIDUALS PER MSG RECOMMEND ADVANCING TO GLUCERNA 1.2 AT MAX GOAL RATE 50ML/HR WITH 240ML FREE WATER FLUSHES Q 6HRS TO PROVIDE 1440KCALS (23KCALS/KG), 72G PROTEIN (1.1G/KG), 1926ML TOTAL FREE WATER FROM FORMULA AND FLUSHES (30ML/KG) INCREASE TF BY 10ML/HR Q 4 HOURS UNTIL MAX RATE IS ACHIEVED MONITOR TOLERANCE, RESIDUALS AND LYTES RD CAN BE REACHED VIA TIGER CONNECT DURING OFF HOURS IF NEEDED
[2024-09-04 11:43] VITALS: BP 144/68; PULSE 70; RESP 16; TEMP 36.1; O2SAT 96
--- NOTE | 2024-09-04 13:36 | MHC.CM.PN ---
GLORIA returned a call from ROBBY/Nevaeh @ [phone]. Nevaeh is covering for the usual Sn[facility] Nurse/Sury and can be contacted to coordinate dc planning.
[2024-09-04 15:49] VITALS: BP 128/83; PULSE 76; RESP 18; TEMP 36.8; O2SAT 96
[2024-09-04 19:14] VITALS: BP 132/78; PULSE 71; RESP 18; TEMP 36.4; O2SAT 98
[2024-09-04] MEDS: Valproic Acid Liquid 250 MG/5 ML SOLUTION 1000 MG G-TUBE (20:52)
[2024-09-04 23:29] VITALS: BP 142/72; PULSE 82; RESP 18; TEMP 36.1; O2SAT 94
[2024-09-05 03:35] VITALS: BP 144/66; PULSE 74; RESP 18; TEMP 36.6; O2SAT 92
[2024-09-05 06:00] VITALS: BMI 31.2
[2024-09-05 08:00] VITALS: BP 122/57; PULSE 68; RESP 16; TEMP 36.6; O2SAT 96
[2024-09-05] MEDS: Valproic Acid Liquid 250 MG/5 ML SOLUTION 1000 MG G-TUBE ×2 (08:47→21:14)
[2024-09-05 09:04] LABS: Hemoglobin 11.1 g/dl (14.0-18.0); Mean Corpuscular Volume 94.9 fL (80.0-98.0); NRBC Abs Auto 0.000 X10*3/uL (0.0-0.012); NRBC Pct Auto 0.0 /100WBC (0.0-0.2); PLT CLUMP 1
[2024-09-05 09:06] LABS: Hematocrit 31.8 % (42.0-52.0); Mean Corpuscular HGB Conc 34.9 g/dl (31.0-36.0); Mean Corpuscular Hemoglobin 33.1 pg (27.0-33.0); Red Blood Count 3.35 X10*6/uL (4.60-5.80)
[2024-09-05 09:11] LABS: White Blood Count 4.2 X10*3/uL (4.8-10.8)
[2024-09-05 09:12] LABS: Platelet Count 145 X10*3/uL (160-400)
[2024-09-05 09:25] LABS: Anion Gap 11 (12-20); Blood Urea Nitrogen 21 mg/dL (9-16); Calcium 9.2 mg/dL (8.4-10.2); Carbon Dioxide 27 mmol/L (22-29); Chloride 112 mmol/L (96-108); Creatinine Clr Calc Pharmacy 71.5; Estimated Glomerular Filt Rate > 60; Potassium 3.9 mmol/L (3.3-5.1); Sodium 146 mmol/L (135-145)
--- NOTE | 2024-09-05 09:31 | HO.PM.IMPN ---
Subjective Subjective Date of Service: 09/05/24 Interval History: large BM reported, tolerated 50cc/hr Physical Exam Vital Signs: Vital Signs: Last Vital Signs Temp 97.9 F 09/05/24 08:00 Pulse 68 09/05/24 08:00 Resp 16 09/05/24 08:00 BP 122/57 L 09/05/24 08:00 Pulse Ox 96 09/05/24 08:00 O2 Del Method Room Air 09/05/24 08:00 O2 Flow Rate 1 09/03/24 07:34 FiO2 35 09/01/24 05:45 Oxygen Flow Rate 3 08/30/24 19:39 BMI result Body Mass Index 31.2 Const: General: comfortable and no acute distress GI: Other: protuberant abdomen, remains slightly distended but soft tube feeds running, PEG tube in place Objective Data Active Medications Docusate Sodium (Docusate Sodium 100 Mg/10 Ml Liquid) 100 mg G-TUBE BEDTIME [facility] Last Admin: 09/04/24 20:52 Dose: 100 mg Documented By: MONICO Enoxaparin Sodium (Enoxaparin Sodium 40 Mg/0.4 Ml Syringe) 40 mg SUBCUT Q24H [facility] Last Admin: 09/04/24 09:57 Dose: 40 mg Documented By: JAZMIN Escitalopram Oxalate (Escitalopram Oxalate 20 Mg Tablet) 20 mg G-TUBE DAILY [facility] Last Admin: 09/04/24 10:51 Dose: 20 mg Documented By: JAZMIN Escitalopram Oxalate (Escitalopram Oxalate 10 Mg Tablet) 5 mg G-TUBE DAILY [facility] Last Admin: 09/04/24 10:58 Dose: 5 mg Documented By: JAZMIN Ampicillin Sodium/Sulbactam (Sodium 3 gm/ Sodium Chloride) 100 mls @ 200 mls/hr IV Q6H [facility] Last Infusion: 09/05/24 08:06 Dose: Infused Documented By: KAROL Magnesium Hydroxide (Milk Of Magnesia 30 Ml Oral.Susp) 30 ml G-TUBE DAILY PRN PRN Reason: Constipation Olanzapine (Olanzapine 10 Mg Tablet) 10 mg G-TUBE DAILY [facility] Last Admin: 09/04/24 09:58 Dose: 10 mg Documented By: JAZMIN Olanzapine (Olanzapine 10 Mg Tablet) 20 mg G-TUBE BEDTIME [facility] Last Admin: 09/04/24 20:52 Dose: 20 mg Documented By: MONICO Sodium Chloride (0.9 % Sodium Chloride Flush 3 Ml Syringe) 3 ml IVFLUSH QSHIFT [facility] Last Admin: 09/05/24 08:47 Dose: Not Given Documented By: KAROL Non-Admin Reason: Previously Administered Valproic Acid (Valproic Acid Liquid 250 Mg/5 Ml Solution) 1,000 mg G-TUBE BID@0800,2000 [facility] Last Admin: 09/05/24 08:47 Dose: 1,000 mg Documented By: KAROL Labs 09/05/24 08:35 09/05/24 08:35 Labs: Laboratory Results - last 24 hr 09/05/24 08:35 MCV 94.9 MCH 33.1 H MCHC 34.9 RDW 15.1 Plt Count 145 L D MPV 10.6 Absolute Nucleated RBC 0.000 Nucleated RBC % (auto) 0.0 Anion Gap 11 L Estim Creat Clear Calc 71.5 Estimated GFR > 60 Random Glucose 71 Calcium 9.2 Microbiology Microbiology Results: Microbiology 08/31/24 04:45 Blood Culture - Final Blood - Venous No growth after 5 days. 08/30/24 20:20 Blood Culture - Final Blood - Venous No growth after 5 days. Assessment and Plan (1) Partial small bowel obstruction: Status: Acute Plan 69M PMH non verbal autism from [facility], recurrent aspiration s/p gtube, history of SBO, epilepsy, bipolar, nephrogenic DI, htn, presented with hypoxia and aspiraiton pneumonia on 08/30/24 as well as partial SBO, course complicated by septic shock and Edward requiring icu transfer 08/31/24 for vasopressors, now off pressors, downgraded 09/02/24 septic shock, acute hypoxic respiratory failure due to aspiration pneumonia resolved continue unasyn npo partial SBO had bm, surgery following, slowly advancing feeds nephrogenic DI improved with d5w will dc, monitor edward resolved epilepsy depakote dvt prophylaxis- lovenox full code reason for continued hospitalization: awaiting tolerance of feeds Quality Stroke Does the patient have a stroke diagnosis?: No VTE Prior VTE?: No VTE Risk Level:: Medical - moderate - high VTE Device Contraindication: N/A - Device Ordered VTE Drug Contraindication: Treatment Not Indicated
[2024-09-05 12:00] VITALS: BP 114/77; PULSE 80; RESP 16; TEMP 36.1; O2SAT 93
[2024-09-05 16:00] VITALS: BP 132/82; PULSE 74; RESP 18; TEMP 36.4; O2SAT 97
[2024-09-05 19:36] VITALS: BP 158/74; PULSE 143; RESP 18; TEMP 36; O2SAT 96
[2024-09-05] MEDS: 0.9 % Sodium Chloride Flush 3 ML SYRINGE IVFLUSH (21:17)
[2024-09-05 23:33] VITALS: BP 155/58; PULSE 143; RESP 18; TEMP 36.5; O2SAT 93
[2024-09-06 03:27] VITALS: BP 102/69; PULSE 86; RESP 18; TEMP 36.5; O2SAT 94
[2024-09-06 07:13] VITALS: BP 137/69; PULSE 77; RESP 18; TEMP 36; O2SAT 96
[2024-09-06] MEDS: 0.9 % Sodium Chloride Flush 3 ML SYRINGE IVFLUSH ×3 (07:20→20:24)
[2024-09-06 07:35] LABS: Hematocrit 30.9 % (42.0-52.0); Hemoglobin 10.5 g/dl (14.0-18.0); Mean Corpuscular HGB Conc 34.0 g/dl (31.0-36.0); Mean Corpuscular Hemoglobin 33.2 pg (27.0-33.0); Mean Corpuscular Volume 97.8 fL (80.0-98.0); NRBC Abs Auto 0.000 X10*3/uL (0.0-0.012); NRBC Pct Auto 0.0 /100WBC (0.0-0.2); Platelet Count 157 X10*3/uL (160-400); Red Blood Count 3.16 X10*6/uL (4.60-5.80); White Blood Count 3.8 X10*3/uL (4.8-10.8)
[2024-09-06 07:49] LABS: Anion Gap 14 (12-20); Blood Urea Nitrogen 25 mg/dL (9-16); Calcium 9.3 mg/dL (8.4-10.2); Carbon Dioxide 25 mmol/L (22-29); Chloride 111 mmol/L (96-108); Creatinine Clr Calc Pharmacy 68.5; Estimated Glomerular Filt Rate > 60; Potassium 4.1 mmol/L (3.3-5.1); Sodium 146 mmol/L (135-145)
[2024-09-06] MEDS: Valproic Acid Liquid 250 MG/5 ML SOLUTION 1000 MG G-TUBE ×2 (08:51→20:23)
--- NOTE | 2024-09-06 09:47 | HO.PM.IMPN ---
Subjective Subjective Date of Service: 09/06/24 Interval History: having multiple substantial stools Physical Exam Vital Signs: Vital Signs: Last Vital Signs Temp 96.8 F 09/06/24 07:13 Pulse 77 09/06/24 07:13 Resp 18 09/06/24 07:13 BP 137/69 09/06/24 07:13 Pulse Ox 96 09/06/24 07:13 O2 Del Method Room Air 09/06/24 07:13 O2 Flow Rate 1 09/03/24 07:34 FiO2 35 09/01/24 05:45 Oxygen Flow Rate 3 08/30/24 19:39 BMI result Body Mass Index 31.2 Const: General: comfortable and no acute distress GI: Other: protuberant abdomen, remains slightly distended but soft tube feeds running, PEG tube in place Objective Data Active Medications Docusate Sodium (Docusate Sodium 100 Mg/10 Ml Liquid) 100 mg G-TUBE BEDTIME [facility] Last Admin: 09/05/24 21:20 Dose: 100 mg Documented By: NIMO Enoxaparin Sodium (Enoxaparin Sodium 40 Mg/0.4 Ml Syringe) 40 mg SUBCUT Q24H [facility] Last Admin: 09/06/24 08:51 Dose: 40 mg Documented By: MARTITA Escitalopram Oxalate (Escitalopram Oxalate 20 Mg Tablet) 20 mg G-TUBE DAILY [facility] Last Admin: 09/06/24 08:52 Dose: 20 mg Documented By: MARTITA Escitalopram Oxalate (Escitalopram Oxalate 10 Mg Tablet) 5 mg G-TUBE DAILY [facility] Last Admin: 09/06/24 08:52 Dose: 5 mg Documented By: MARTITA Ampicillin Sodium/Sulbactam (Sodium 3 gm/ Sodium Chloride) 100 mls @ 200 mls/hr IV Q6H [facility] Last Infusion: 09/06/24 07:56 Dose: Infused Documented By: EUGENE Magnesium Hydroxide (Milk Of Magnesia 30 Ml Oral.Susp) 30 ml G-TUBE DAILY PRN PRN Reason: Constipation Olanzapine (Olanzapine 10 Mg Tablet) 10 mg G-TUBE DAILY [facility] Last Admin: 09/06/24 08:53 Dose: 10 mg Documented By: MARTITA Olanzapine (Olanzapine 10 Mg Tablet) 20 mg G-TUBE BEDTIME [facility] Last Admin: 09/05/24 21:21 Dose: 20 mg Documented By: MARENEJ Sodium Chloride (0.9 % Sodium Chloride Flush 3 Ml Syringe) 3 ml IVFLUSH QSHIFT [facility] Last Admin: 09/06/24 07:20 Dose: 3 ml Documented By: MARTITA Valproic Acid (Valproic Acid Liquid 250 Mg/5 Ml Solution) 1,000 mg G-TUBE BID@0800,2000 [facility] Last Admin: 09/06/24 08:51 Dose: 1,000 mg Documented By: MARTITA Labs 09/06/24 07:12 09/06/24 07:12 Labs: Laboratory Results - last 24 hr 09/06/24 07:12 MCV 97.8 MCH 33.2 H MCHC 34.0 RDW 15.1 Plt Count 157 L MPV 10.4 Absolute Nucleated RBC 0.000 Nucleated RBC % (auto) 0.0 Anion Gap 14 Estim Creat Clear Calc 68.5 Estimated GFR > 60 Random Glucose 82 Calcium 9.3 Microbiology Microbiology Results: Microbiology 08/31/24 04:45 Blood Culture - Final Blood - Venous No growth after 5 days. Assessment and Plan (1) Partial small bowel obstruction: Status: Acute Plan 69M PMH non verbal autism from shelter, recurrent aspiration s/p gtube, history of SBO, epilepsy, bipolar, nephrogenic DI, htn, presented with hypoxia and aspiraiton pneumonia on 08/30/24 as well as partial SBO, course complicated by septic shock and Edward requiring icu transfer 08/31/24 for vasopressors, now off pressors, downgraded 09/02/24 septic shock, acute hypoxic respiratory failure due to aspiration pneumonia resolved continue unasyn npo partial SBO had bm, surgery following, advancing feeds nephrogenic DI improved with d5w dced, monitor edward resolved epilepsy depakote dvt prophylaxis- lovenox full code reason for continued hospitalization: awaiting tolerance of feeds Quality Stroke Does the patient have a stroke diagnosis?: No VTE Prior VTE?: No VTE Risk Level:: Medical - moderate - high VTE Device Contraindication: N/A - Device Ordered VTE Drug Contraindication: Treatment Not Indicated
[2024-09-06 12:00] VITALS: BP 184/79; PULSE 113; RESP 18; TEMP 36.3; O2SAT 94
[2024-09-06 16:16] VITALS: BP 130/60; PULSE 78; RESP 18; TEMP 36.3; O2SAT 96
[2024-09-06 20:00] VITALS: BP 130/62; PULSE 70; RESP 16; TEMP 35.6; O2SAT 97
[2024-09-07] VITALS: BP 109/55; PULSE 66; RESP 16; TEMP 36.1; O2SAT 96
[2024-09-07 04:00] VITALS: BP 136/64; PULSE 70; RESP 18; TEMP 36.2; O2SAT 97
[2024-09-07 06:00] VITALS: BMI 34.4
[2024-09-07 06:04] LABS: Hematocrit 36.6 % (42.0-52.0); Hemoglobin 12.3 g/dl (14.0-18.0); Mean Corpuscular HGB Conc 33.6 g/dl (31.0-36.0); Mean Corpuscular Hemoglobin 33.0 pg (27.0-33.0); Mean Corpuscular Volume 98.1 fL (80.0-98.0); NRBC Abs Auto 0.000 X10*3/uL (0.0-0.012); NRBC Pct Auto 0.0 /100WBC (0.0-0.2); Platelet Count 194 X10*3/uL (160-400); Red Blood Count 3.73 X10*6/uL (4.60-5.80); White Blood Count 4.4 X10*3/uL (4.8-10.8)
[2024-09-07 06:26] LABS: Anion Gap 14 (12-20); Blood Urea Nitrogen 27 mg/dL (9-16); Calcium 9.6 mg/dL (8.4-10.2); Carbon Dioxide 25 mmol/L (22-29); Chloride 110 mmol/L (96-108); Creatinine Clr Calc Pharmacy 69.0; Estimated Glomerular Filt Rate > 60; Magnesium 2.7 mg/dL (1.6-2.6); Potassium 4.3 mmol/L (3.3-5.1); Sodium 145 mmol/L (135-145)
[2024-09-07 06:58] VITALS: BP 140/72; PULSE 68; RESP 16; TEMP 36.6; O2SAT 95
[2024-09-07] MEDS: 0.9 % Sodium Chloride Flush 3 ML SYRINGE IVFLUSH (07:23)
[2024-09-07] MEDS: Valproic Acid Liquid 250 MG/5 ML SOLUTION 1000 MG G-TUBE (07:25)
--- NOTE | 2024-09-07 08:44 | P.DS_ITS ---
DS: Providers Provider Date of Service: 09/07/24 Date of admission: 08/31/24 05:54 Date of discharge: 09/07/24 Primary care physician: Medardo Ralph MD DS: Diagnosis Discharge Diagnosis (1) Partial small bowel obstruction: Status: Acute DS: Summary Hospital Course Hospital Course: from initial hpi: 69-year-old nonverbal male who resides in a detention, with a past medical history significant for recurrent aspiration pneumonia, history SBO, chronic G- tube, seizure disorder, GERD, mood disorder, autism, bipolar, nephrogenic diabetes insipidus, hypertension, hep a carrier and CKD III, who presented to the ED due to dyspnea after an episode of vomiting today with concern for aspiration pneumonia. His oxygenation was around 80-90% on room air improved to 94% with 4 L via NC. His abdomen has also been distended. He has not had any further vomiting in the ED. the patient's caregiver from the detention was able to provide his history as the patient is nonverbal. He had a PEG tube placed in 2021 due to recurrent aspiration pneumonia, has continued to have aspiration pneumonia but not as frequently. In the ED the patient was found to have sepsis with acute hypoxic respiratory failure secondary to aspiration pneumonia complicated by acute per partial small-bowel obstruction. hospital course: Patient was admitted for septic shock and acute hypoxic respiratory failure due to aspiration pneumonia further complicated by partial small-bowel obstruction and acute kidney injury. He was transferred to the intensive care unit on 08/31/2024 for vasopressor support, quickly weaned off and downgraded on 09/02/2024. For aspiration was treated with IV Unasyn and completed course, weaned to room air. For partial small bowel obstruction was followed by surgery treated conservatively and eventually had bowel movements with resolution of abdominal distention, patient's feeds were slowly advanced and he is now tolerating goals. For nephrogenic diabetes insipidus with acute hypernatremia resolved with D5W. Acute kidney injury resolved. For epilepsy was continued on Depakote. Patient will be discharged back to detention. Time Attestation Discharge Coordination Time (in mins): 33 Quality: Safe Use of Opioids Does Pt have an Active Cancer Diagnosis on the Problem List?: No Quality: Stroke Does the patient have a stroke diagnosis?: No Physical Exam Exam: Exam: General: Alert, non verbal, no acute distress Resp: CTA bilateral, no accessory muscles used CVS: S1,S2,RRR GI: soft, non tender, non distended Vital Signs: Vital Signs: Last Vital Signs Temp 98 F 09/07/24 06:58 Pulse 68 09/07/24 06:58 Resp 16 09/07/24 06:58 BP 140/72 H 09/07/24 06:58 Pulse Ox 95 09/07/24 06:58 O2 Del Method Room Air 09/07/24 06:58 O2 Flow Rate 1 09/03/24 07:34 FiO2 35 09/01/24 05:45 Oxygen Flow Rate 3 08/30/24 19:39 BMI result Body Mass Index 34.4 DS: Data Data Completed and Pending Completed studies during hospitalization [Text1]: Procedures Insertion of Feeding Device into Stomach, Percutaneous Approach (01/02/22) Labs on day of discharge: Laboratory Results - last 24 hr 09/07/24 05:55 WBC 4.4 L RBC 3.73 L Hgb 12.3 L Hct 36.6 L MCV 98.1 H MCH 33.0 MCHC 33.6 RDW 15.3 Plt Count 194 MPV 10.4 Absolute Nucleated RBC 0.000 Nucleated RBC % (auto) 0.0 Sodium 145 Potassium 4.3 Chloride 110 H Carbon Dioxide 25 Anion Gap 14 BUN 27 H Creatinine 0.99 Estim Creat Clear Calc 69.0 Estimated GFR > 60 Random Glucose 77 Calcium 9.6 Magnesium 2.7 H Discharge Plan Discharge Anticipated Discharge Date/Time: 09/07/24 08:42 Patient Disposition: Xfer Other Discharge Diagnosis: sbo Referrals: Medardo Duron MD [Primary Care Provider, Hospitalist] - 1 Week Discharge Medications: Continued bacitracin zinc 500 unit/gram ointment 1 appl topical BID PRN (Reason: Wound Care) acetaminophen 325 mg tablet 650 mg feeding tube Q6H PRN (Reason: Pain) Qty: 60 0RF dextromethorphan-guaifenesin 10-100 mg/5 mL Liquid 10 ml feeding tube Q6H PRN (Reason: Cough) Qty: 500 0RF olanzapine 10 mg tablet 10 mg feeding tube DAILY Qty: 60 0RF simethicone [Gas Relief (simethicone)] 40 mg/0.6 mL drops,suspension 40 mg feeding tube TID@0800,1600,2000 Qty: 30 0RF polyethylene glycol 3350 17 gram/dose powder 17 g feeding tube BID Qty: 510 0RF Rx Instructions: hold if more than 3 BM's in 1 day olanzapine 20 mg tablet 20 mg feeding tube BEDTIME Qty: 30 0RF loratadine 10 mg tablet 10 mg feeding tube DAILY Qty: 60 0RF docusate sodium 60 mg/15 mL syrup 100 mg feeding tube BEDTIME valproic acid (as sodium salt) 250 mg/5 mL solution 1,000 mg feeding tube BID@0800,2000 citalopram 40 mg tablet 40 mg feeding tube DAILY Rx Instructions: Give along with 10 mg. For total dose =50 mg citalopram 20 mg tablet 10 mg feeding tube DAILY Rx Instructions: Give along with 40 mg For a total dose=50 mg furosemide 40 mg/4 mL Solution 40 mg PO DAILY diphenhydramine HCl 12.5 mg/5 mL Liquid 25 mg PO Q6H PRN (Reason: Hives) famotidine 40 mg/5 mL (8 mg/mL) Suspension For Reconstitution 40 mg PO BID zinc oxide 13 % Cream 1 appl TOPICAL TID Rx Instructions: APPLY WITH EVERY BRIEF CHANGE TO MAINTAIN SKIN HEALTH magnesium hydroxide [Milk of Magnesia] 400 mg/5 mL Suspension 2,400 mg PO DAILY PRN (Reason: Constipation) guar gum Powder 2 g PO BID@0800,1600 Rx Instructions: mix into at least 4 oz of water or juice before administering nystatin 100,000 unit/gram powder 1 appl topical BID PRN (Reason: Rash) Rx Instructions: To groin and buttocks finasteride 5 mg tablet 5 mg feeding tube DAILY 90 Days Qty: 90 3RF (DME) #18 MACKENZIE gastrostomy feeding #18 Yi See Rx Instructions .Route .MEDSUPPLY Qty: 1 0RF Rx Instructions: Every 6 months Discharge Orders: Discharge Order (Routine); Ordered 09/07/24 Ordered By: Ron Jarvis Diet: tube feeds Activity on Discharge: As tolerated Stand Alone Forms: Patient Portal Discharge page Print Language: Unable To Collect Care Plan Goals: recovery Health Concerns: aspiration/sbo Plan of Treatment: tolerating feeds aspiration precautions Assessment: see above
--- NOTE | 2024-09-07 11:12 | MHC.CM.PN ---
PT RETURNING TO [facility] AT 1 TODAY ARRANGEMENTS COMPLETED WITH SHANNAN [phone] MESSAGE LEFT FOR KHURRAM NAVARRETE [phone] [facility]
[2024-09-07 12:55] VITALS: BP 141/90; PULSE 100; RESP 18; TEMP 36.1; O2SAT 93
== END 2024-09-07 13:12 | disposition other institution (70) | DRG 871 ==
LOC: HO.ED 08-31 00:35 → HO.EDOVER 08-31 02:03 → HO.ICU 08-31 07:00 → HO.IMC 09-02 15:09 → HO.S3 09-06 10:26
PROVIDERS: Internal Medicine Pulmonary Disease; Physician Assistant Medical; Admitting Provider Student in an Organized Health Care Education/Training Program; Emergency Provider Emergency Medicine; PCP Internal Medicine; Visit Provider Internal Medicine
DX: A41.9 Sepsis, unspecified organism (principal); J69.0 Pneumonitis due to inhalation of food and vomit; R65.21 Severe sepsis with septic shock; J96.01 Acute respiratory failure with hypoxia; D61.818 Other pancytopenia; F84.0 Autistic disorder; N17.9 Acute kidney failure, unspecified; K56.600 Partial intestinal obstruction, unspecified as to cause; N25.1 Nephrogenic diabetes insipidus; N18.30 Chronic kidney disease, stage 3 unspecified; F31.9 Bipolar disorder, unspecified; G40.909 Epilepsy, unspecified, not intractable, without status epilepticus; E87.5 Hyperkalemia; Z93.1 Gastrostomy status; R13.10 Dysphagia, unspecified; Z20.822 Contact with and (suspected) exposure to COVID-19; Z74.01 Bed confinement status; Z79.899 Other long term (current) drug therapy
CPT/HCPCS: 36415; 71045; 71260; 74177; 80048; 80053; 81003; 82040; 82803; 83605; 83690; 83735; 83880; 84100; 85007; 85025; 85027; 87040; 87637; 99285; J0131; J0295; J0613; J0696; J1171; J1271; J1650; J1938; J2270; J2405; J3480; J7120; P9047

== ENCOUNTER → 2024-08-30 19:29 | Outpatient (BNV) | payer MEDICARE, MEDICAID, SELFPAY | PROVIDERS: Emergency Provider Emergency Medicine; Visit Provider Radiology Diagnostic Radiology | DX: R06.00 Dyspnea, unspecified (principal) | CPT/HCPCS: 71045; 71260; 74177 ==

== ENCOUNTER → 2024-08-31 00:28 | Outpatient (BNV) | payer MEDICARE, MEDICAID, SELFPAY | PROVIDERS: Admitting Provider Student in an Organized Health Care Education/Training Program; Emergency Provider Emergency Medicine; Visit Provider Physician Assistant | DX: A41.9 Sepsis, unspecified organism (principal); R65.21 Severe sepsis with septic shock; J96.01 Acute respiratory failure with hypoxia; J69.0 Pneumonitis due to inhalation of food and vomit; K56.600 Partial intestinal obstruction, unspecified as to cause; E87.5 Hyperkalemia; N17.9 Acute kidney failure, unspecified; N18.31 Chronic kidney disease, stage 3a; D69.6 Thrombocytopenia, unspecified | CPT/HCPCS: 99223 ==

== ENCOUNTER → 2024-08-31 04:48 | Outpatient (BNV) | payer MEDICARE, MEDICAID, SELFPAY | PROVIDERS: Admitting Provider Student in an Organized Health Care Education/Training Program; Emergency Provider Emergency Medicine; Visit Provider Radiology Vascular & Interventional Radiology | DX: R06.00 Dyspnea, unspecified (principal) | CPT/HCPCS: 71045 ==

== ENCOUNTER → 2024-08-31 05:54 | Outpatient (BNV) | payer MEDICARE, MEDICAID, SELFPAY | PROVIDERS: Admitting Provider Student in an Organized Health Care Education/Training Program; Emergency Provider Emergency Medicine; Visit Provider Surgery | DX: K56.600 Partial intestinal obstruction, unspecified as to cause (principal) | CPT/HCPCS: 99232; 99499 ==

== ENCOUNTER → 2024-08-31 05:54 | Outpatient (BNV) | payer MEDICARE, MEDICAID, SELFPAY | PROVIDERS: Admitting Provider Student in an Organized Health Care Education/Training Program; Emergency Provider Emergency Medicine; Visit Provider Internal Medicine Pulmonary Disease | DX: I95.9 Hypotension, unspecified (principal); K56.609 Unspecified intestinal obstruction, unspecified as to partial versus complete obstruction; R56.9 Unspecified convulsions; N17.9 Acute kidney failure, unspecified | CPT/HCPCS: 99232; 99291 ==

== ENCOUNTER 2025-01-03 06:32 | Emergency (ER) | payer MEDICARE, MEDICAID, SELFPAY ==
--- NOTE | 2025-01-03 | ECG_ITS ---
Test Reason : AMS REPEAT Blood Pressure : */* mmHG Vent. Rate : 93 BPM Atrial Rate : 93 BPM P-R Int : 154 ms QRS Dur : 70 ms QT Int : 380 ms P-R-T Axes : 45 38 58 degrees QTcB Int : 472 ms Normal sinus rhythm Nonspecific ST and T wave abnormality Prolonged QT Abnormal ECG When compared with ECG of 03-Jan-2025 07:16, Nonspecific T wave abnormality no longer evident in Inferior leads Referred By: Jorge Mancilla Electronically Signed By: ANDREIA RODRIGUEZ MD
--- NOTE | ~2025-01-03 | XR_ITS ---
CLINICAL HISTORY: weakness 1 view chest x-ray Comparison: CR - XR CHEST 1V - 08/31/24 04:[address]/REG/SR - CT CHEST W IV CON - 08/30/24 21:42 EDT Findings: Lung volumes are low without consolidation or effusion. Heart size is normal. No acute fracture. Diffuse air within the visualized loops of bowel. IMPRESSION: No acute cardiopulmonary findings. This document has been electronically signed by: Mamadou Mendoza MD on 01/03/2025 09:24:39
[2025-01-03 06:43] VITALS: BP 120/70; PULSE 90; O2SAT 95; BMI 21.3
--- NOTE | 2025-01-03 07:08 | ECG_ITS ---
Test Reason : AMS Blood Pressure : */* mmHG Vent. Rate : 96 BPM Atrial Rate : 96 BPM P-R Int : 140 ms QRS Dur : 70 ms QT Int : 410 ms P-R-T Axes : 28 32 63 degrees QTcB Int : 517 ms Normal sinus rhythm Nonspecific ST and T wave abnormality Prolonged QT Abnormal ECG When compared with ECG of 13-Nov-2023 09:00, Nonspecific T wave abnormality, worse in Inferior leads T wave inversion now evident in Anterior leads Referred By: Jorge Mancilla Electronically Signed By: ANDREIA RODRIGUEZ MD
--- NOTE | 2025-01-03 07:08 | ED_ITS ---
HPI - Altered Mental Status General Chief Complaint: Altered Mental Status Stated Complaint: AMS PER [facility] HOME STAFF,NONVERB/DEV IMPAIRED @BASE Time Seen by Provider: 01/03/25 06:38 Source: EMS and other (per my request RN Madonna left a message with Guardian) Mode of arrival: EMS Limitations: other (Intellectual disability) History of Present Illness ED Provider: HPI narrative: 69-year-old male with a history of autism, intellectual disability, OCD, bipolar disorder, seizure disorder, dysphagia on G-tube, non-verbal, with recurrent aspiration pneumonia, who is primarily bed-bound at baseline, correction reports that patient is displaying altered mental status, on my evaluation patient is quite alert, was pushing me away during physical examination no reports of hypoxia tachycardia hypoglycemia or fevers Related Data Home Medications ?Medication ?Instructions ?Recorded ?Confirmed bacitracin zinc 500 unit/gram 1 appl topical BID PRN W ound Care 12/24/21 08/31/24 topical ointment docusate sodium 60 mg/15 mL oral 100 mg feeding tube B EDTIME 11/10/22 08/31/24 syrup nystatin 100,000 unit/gram topical 1 appl topical BID PRN Rash 12/18/22 08/31/24 powder citalopram 20 mg tablet 10 mg feeding tube DAILY 02/1008/31/24 citalopram 40 mg tablet 40 mg feeding tube DAILY 02/1008/31/24 valproic acid (as sodium salt) 250 1,000 mg feeding tu be BID@0800,2000 04/01/23 08/31/24 mg/5 mL oral solution diphenhydramine HCl 12.5 mg/5 mL 25 mg PO Q6H PRN Hive s 11/13/23 08/31/24 oral liquid furosemide 40 mg/4 mL oral solution 40 mg PO DAILY 08/31/24 famotidine 40 mg/5 mL (8 mg/mL) 40 mg PO BID 08/31/24 08/31/24 oral suspension guar gum 2 g PO BID@0800,1600 08/31/ 5 08/31/24 magnesium hydroxide 400 mg/5 mL 2,400 mg PO DAILY PRN Constipation 08/31/24 08/31/24 oral suspension (Milk of Magnesia) zinc oxide 13 % topical cream 1 appl topical TID 08/3108/31/24 Previous Rx's ?Medication ?Instructions ?Recorded acetaminophen 325 mg tablet 650 mg (2 x 325 mg) feedin g tube 01/16/22 Q6H PRN Pain #60 tabs dextromethorphan-guaifenesin 10 10 ml feeding tube Q6H PRN Cough 01/16/22 mg-100 mg/5 mL oral liquid #500 mL loratadine 10 mg tablet 10 mg feeding tube DAILY #60 tabs 01/16/22 olanzapine 10 mg tablet 10 mg feeding tube DAILY #60 tabs 01/16/22 olanzapine 20 mg tablet 20 mg feeding tube BEDTIME # 30 tabs 01/16/22 polyethylene glycol 3350 17 17 g feeding tube BID #510 grams 01/16/22 gram/dose oral powder simethicone 40 mg/0.6 mL oral 40 mg (0.6 mL) feeding t ube 01/16/22 drops,suspension (Gas Relief TID@0800,1600,2000 #30 mL (simethicone)) #18 MACKENZIE gastrostomy feeding #1 ea 06/20/22 finasteride 5 mg tablet 5 mg feeding tube DAILY 90 d ays 12/25/23 #90 tabs Allergies Allergy/AdvReac Type Severity Reaction Status Date / Time haloperidol (From HALDOL) AdvReac Unknown UNKNOWN Verified 01/03/25 06:53 metoclopramide (From REGLAN) AdvReac Unknown UNKNOWN Verified 01/03/25 06:53 levofloxacin AdvReac Unknown Verified 01/03/25 06:53 Review of Systems 2 Review of Systems: Yes Unobtainable due to mental status PMFSH Past Medical History Medical History Partial small bowel obstruction Pica Seizures BPH (benign prostatic hyperplasia) Dysphagia Pneumonia Mentally challenged Developmental non-verbal disorder Autism Severe sepsis Hydrocele Chronic renal disease Hyperlipemia Anemia Hypertension Hiatal hernia GERD (gastroesophageal reflux disease) OCD (obsessive compulsive disorder) Bipolar 1 disorder Surgical History History of colectomy H/O exploratory laparotomy Social History Social History Household Members: Unknown / Unable to assess Household Members Other:: correction, [facility] Housing: Unknown / Unable to assess Housing Other:: gr. home Do you presently have visiting nurse or other home services: Yes Alcohol intake: never Comment: correction staff at bedside Patient Tobacco Use Status: Tobacco use Unknown Advance Directives: Yes Advance Directives on File: Yes Advance Directives Date on File: 12/24/21 service: No Current occupational status: disabled Physical Exam ED Exam Exam: General: ?Appears of stated age ? ?no facial trauma, no blood in the airway, no scleral icterus ? no neck stiffness noted ? ?CV: S1-S2 ? ?Resp: ?No wheezing rales rhonchi no stridor moving air well ? Abd: ?Bowel sounds are present, G-tube is in place did not want so my exam ? ?MSK: Contracted bilateral lower extremities ? Skin: Warm, dry, intact, no bruising no jaundice ? ?Neuro: ?Alert bilateral lower extremities are contracted with a pillow between the legs, noted to be moving upper extremities with good strength Vital Signs: BMI result Body Mass Index 21.3 Medications Administered Discontinued Medications Generic Name Dose Route Start Last Admin Trade Name Freq PRN Reason Stop Dose Admin Sodium Chloride 1,000 mls @ 999 mls/hr 01/03/25 08:45 01/03/25 10:20 Ns IV 01/03/25 09:45 Infused .Q1H1M RODOLFO Infusion Medical Decision Making Medical Decision Making [facility] Narrative: 7:57 AM 01/03/2025 (Dr. Jorge Mancilla): Differential for workup as below, disposition to be determined, he is not hypoxic he is nonfebrile, the reports of altered mentation but he is quite alert and not lethargic, did not feel further imaging such as CT brain to evaluate for stroke is indicated at this time. Left a message with his guardian 8:37 AM 01/03/2025 (Dr. Jorge Mancilla): BUN is elevated, lactic 2.6 this is likely due to dehydration we will provide IV fluids recheck lactic, chest x- ray without obvious consolidations, at this time still no concern for underlying infectious etiology causing lactic elevation and the patient's presentation 11:19 AM 01/03/2025 (Dr. Jorge Mancilla): Lactic cleared with IV fluids, my understanding is that his G-tube feeds were also adjusted when RN spoke to the facility Differential Diagnosis Differential Diagnoses: The differential diagnosis associated with the presentation includes (UTI, pneumonia, dehydration, stroke, trauma) Admission/Observation Consideration of admission/observation: Escalation of care including admission/observation considered Lab Data [facility] Lab Attestation statement: I reviewed the patient's lab results. 01/03/25 07:34 01/03/25 07:34 Labs: Lab Results 01/03/25 01/03/25 01/03/25 Range/Units 07:34 09:34 10:25 WBC 10.3 (4.8-10.8) X10*3/uL RBC 3.62 L (4.60-5.80) X10*6/uL Hgb 12.2 L (14.0-18.0) g/dl Hct 36.6 L (42.0-52.0) % MCV 101.1 H (80.0-98.0) fL MCH 33.7 H (27.0-33.0) pg MCHC 33.3 (31.0-36.0) g/dl RDW 14.7 (11.0-16.0) % Plt Count 120 L D (160-400) X10*3/uL MPV 10.6 (9.4-12.4) fL Immature Gran % (Auto) 0.4 (0.0-0.4) % Neut % (Auto) 79.4 H (45-73) % Lymph % (Auto) 8.6 L (20-40) % [place] % (Auto) 11.2 H (2-11) % Eos % (Auto) 0.1 (0-4) % Baso % (Auto) 0.3 (0-2) % Lymph # (Auto) 0.9 L (1.2-4.9) X10*3/uL [place] # (Auto) 1.2 (0.1-1.2) X10*3/uL Eos # (Auto) 0.0 (0.0-0.4) X10*3/uL Baso # (Auto) 0.0 (0.0-0.2) X10*3/uL Abs Immat Gran (auto) 0.04 H (0.00-0.03) X10*3/uL Absolute Neuts (auto) 8.2 (2.0-8.3) x10*3/uL Absolute Nucleated RBC 0.000 (0.0-0.012) X10*3/uL Nucleated RBC % (auto) 0.0 (0.0-0.2) /100WBC Sodium 139 (135-145) mmol/L Potassium 4.1 (3.3-5.1) mmol/L Chloride 95 L (96-108) mmol/L Carbon Dioxide 34 H (22-29) mmol/L Anion Gap 14 (12-20) BUN 30 H (9-16) mg/dL Creatinine 1.31 (0.5-1.4) mg/dL Estim Creat Clear Calc 40.9 Estimated GFR 54 Random Glucose 68 (60-115) mg/dL Lactic Acid 2.6 H* (0.5-2.0) mmol/L Lactic Acid F/U @ 2Hr 1.8 (0.5-2.0) mmol/L Calcium 9.5 (8.4-10.2) mg/dL Total Bilirubin 0.6 (0.0-1.0) mg/dL AST 58 H (5-37) U/L ALT 30 (0-40) U/L Alkaline Phosphatase 122 H (39-117) U/L Total Protein 8.3 H (6.5-8.0) g/dL Albumin 3.2 L (3.5-5.0) g/dL Urine Color Yellow Urine Appearance Clear Urine pH >= 9.0 (5.0-9.0) Ur Specific [place] 1.010 (1.005-1.025) Urine Protein Negative (Neg-Trace) mg/dL Urine Glucose (UA) Negative (Negative) mg/dL Urine Ketones Negative (Negative) mg/dL Urine Blood Negative (Negative) Urine Nitrite Negative (Negative) Ur Leukocyte Esterase Negative (Negative) Independent Interpretation I performed an independent interpretation of an: EKG (Ninety-three beats per minute otherwise normal ECG without dysrhythmia, AV eliel blocks or ST-T changes to suspect underlying ACS, my independent interpretation) and Plain X-Ray (Similar x-rays to his prior, there maybe some increased vascular markings but did not appreciate consolidations and he has increased gastric bubble seen on prior as well) Radiology Impression Discussion of test interpretation with radiology: I have reviewed the radiologist's reading. Radiologist Impression: No acute disease process Independent Historian Clinical information obtained from an independent historian. History obtained from or confirmed by: EMS and Other (Left a message with the guardian) Tests considered The following testing was considered but not selected: CT brain Discharge Plan Discharge Clinical Impression: Dehydration, G tube feedings Patient Disposition: Home, Self-Care Additional Instructions: Patient evaluated with concerns for altered mental status or lethargy, there has been no indication that patient has change in mental status in the emergency department he was quite alert, vital signs without abnormalities, no fevers, he did have a chest x-ray which did not reveal any pneumonia I know he has aspiration pneumonia, urinalysis without infection, blood work with lactic elevation 2.6 which improved with fluids, there was other evidence that he was somewhat dehydrated, I understand that his feedings are adjusted just make sure patient receives enough free water EKG reassuring When patient was in the emergency department we left a message with his healthcare proxy of patient's ER visit Prescriptions: No Action bacitracin zinc 500 unit/gram ointment 1 appl topical BID PRN (Reason: Wound Care) acetaminophen 325 mg tablet 650 mg feeding tube Q6H PRN (Reason: Pain) Qty: 60 0RF dextromethorphan-guaifenesin 10-100 mg/5 mL Liquid 10 ml feeding tube Q6H PRN (Reason: Cough) Qty: 500 0RF olanzapine 10 mg tablet 10 mg feeding tube DAILY Qty: 60 0RF simethicone [Gas Relief (simethicone)] 40 mg/0.6 mL drops,suspension 40 mg feeding tube TID@0800,1600,2000 Qty: 30 0RF polyethylene glycol 3350 17 gram/dose powder 17 g feeding tube BID Qty: 510 0RF Rx Instructions: hold if more than 3 BM's in 1 day olanzapine 20 mg tablet 20 mg feeding tube BEDTIME Qty: 30 0RF loratadine 10 mg tablet 10 mg feeding tube DAILY Qty: 60 0RF docusate sodium 60 mg/15 mL syrup 100 mg feeding tube BEDTIME valproic acid (as sodium salt) 250 mg/5 mL solution 1,000 mg feeding tube BID@0800,2000 citalopram 40 mg tablet 40 mg feeding tube DAILY Rx Instructions: Give along with 10 mg. For total dose =50 mg citalopram 20 mg tablet 10 mg feeding tube DAILY Rx Instructions: Give along with 40 mg For a total dose=50 mg furosemide 40 mg/4 mL Solution 40 mg PO DAILY diphenhydramine HCl 12.5 mg/5 mL Liquid 25 mg PO Q6H PRN (Reason: Hives) famotidine 40 mg/5 mL (8 mg/mL) Suspension For Reconstitution 40 mg PO BID zinc oxide 13 % Cream 1 appl TOPICAL TID Rx Instructions: APPLY WITH EVERY BRIEF CHANGE TO MAINTAIN SKIN HEALTH magnesium hydroxide [Milk of Magnesia] 400 mg/5 mL Suspension 2,400 mg PO DAILY PRN (Reason: Constipation) guar gum Powder 2 g PO BID@0800,1600 Rx Instructions: mix into at least 4 oz of water or juice before administering nystatin 100,000 unit/gram powder 1 appl topical BID PRN (Reason: Rash) Rx Instructions: To groin and buttocks finasteride 5 mg tablet 5 mg feeding tube DAILY 90 Days Qty: 90 3RF (DME) #18 MACKENZIE gastrostomy feeding #18 Samoan See Rx Instructions .Route .MEDSUPPLY Qty: 1 0RF Rx Instructions: Every 6 months Print Language: Unable To Collect
--- NOTE | 2025-01-03 07:39 | PC.NURSE ---
Labs drawn and sent for analysis. residential staff member at bedside. Attempted to contact the patient's guardian (Sherry), no answer, left voicemail with callback number. Care ongoing by this RN.
[2025-01-03 07:40] LABS: MANUAL DIFF FLAG NO
--- OUTSIDE RECORDS SUMMARY | 2025-01-03 07:40 | XMS_ITS | Encounter Summary ---
Author Organization [facility] Address [address] [place] [phone] Phone Support Name Relationship Address Public Health Epidemiologist House Personal Relationship Unknown Care Team Providers Care Cutter Operator Name Role Phone Pcp, Unknown Primary Care Provider Tomy Castano MD Primary Care Provider [phone] Encounter Details Date Type Department Care Team (Late st Contact Info) Description 02/13/2022 Procedure Pass [facility], Ct Scan - [address] [address] Social History Tobacco Use Types Packs/Day Years Used Date Smoking Tobacco: Never Assessed Sex and Gender Information Value Date Recorded Sex Assigned at Not on file Legal Sex Male 9:55 PM EDT Gender Identity Not on file Sexual Orientation Not on file documented as of this encounter Plan of Treatment Upcoming Encounters Date Type Department Care Team (Late st Contact Info) Description 03/09/2025 9:30 AM EST Office Visit [facility] [address] [place] [phone] Unknown, Unknown, Mabel Woods PA-C [address] [place] [address] [email or web address] documented as of this encounter Visit Diagnoses Not on filedocumented in this encounter Care Teams Cutter Operator Relationship Specialty Start Date End Date Pcp, Unknown PCP - General 02/15/22 02/26/22 Tomy Rangel MD [address] [place] [address] [place] [id number] PCP - General Internal Medicine 1/10/23 documented as of this encounter Additional Source Comments The information contained in this document represents components of the legal health record. It is not the complete legal health record.[facility]
--- OUTSIDE RECORDS SUMMARY | 2025-01-03 07:40 | XMS_ITS | Data Portability ---
Author Organization [place] [facility] Address [address] [place] [phone] Care Team Providers Care Plant Science Professor Name Role Phone ROXANNA ZIMMERMAN Primary Care Provider Assessment Encounter Date Assessment Date Assessment LastModified by Organization Details LastModified Time 12/05/2020 12/05/2020 Overview/History : 65 y/o non-verbal M with PMHx sig for recurrent aspiration PNA, bipolar disorder, seizure disorder, OCD, pica, hiatal hernia, dysphagia, and nephrogenic DI, new to , who presents w/ shelter staff concerns for possible PNA. HPI obtained from shelter staff who report patient has been coughing/gagging [...] given Thank you for your visit with [facility] today. We cannot always find the exact [...] in your condition between 8am-10pm, please call [facility] at [phone] to help navigate your care. In order to obtain further information and compare any laboratory results/values, I have accessed patient records on the [employer]. This information was pertinent in my medical decision making today. Time On Scene with Patient: 00:29:26 param Not available 12/05/2020 17:17:17 Plan of Treatment Reminders Order Date Submit Date Provider Last Modified By Organization Details Last Modified Time Details Appointments None recorded. Lab unlisted lab - sars-cov-2 virus PCR (covid-19) 2020 [facility], [address] [place] [address], [address], 09:03:57 Referral None recorded. Procedures None recorded. Surgeries None recorded. Imaging XR, chest, 2 view 2020 [email or web address] [facility] ([facility]), [address] [place], [address], 10:38:49 Medication Orders Augmentin 875 mg-125 mg tablet 2020 [facility], [address] [place] [address], [address], 09:03:25 Patient TargetsNo targets recorded. Patient InstructionsNo instructions recorded. Reason for Referral None Reported. Results Created Date Observation Date Name Description Value Unit Range Abnormal Flag Note LastModifiedBy Organization Detail LastModifiedTime 12/08/19 XR, chest , 2 view No observ ation record ed. [email or web address] [address] [facility], [place], [address], 12/08/2020 09:11:29 Result Notes None recorded. Problems Name Problem SNOMED Code Status Onset Date Resolution Date Notes Provider Name and Address Organization Details Recorded Time Bipolar disorder 25329666 Active OFELIA [address] [address] [place], [address], [place] [facility] 15:21:07 Problem Notes None recorded. Medical Equipment None Reported. Allergies Allergen ID Allergen Name Allergen Category Reaction Reaction Severity Criticality Documentation Date Start Date Code Code System Note Provider Name and Address Organization Details Recorded Time 876100 Reglan medicatio n Not available Not available Not available 12/05/2020 9230 RxNorm OFEL[place] [address] [place], [address], [place] [facility] 15:20:55 621966 Haldol medicatio n Not available Not available Not available 12/05/2020 30832 9 RxNorm OFELIA SOLIZ [address] [place], [address], [place] [facility] 15:21:00 [...] Social History Question Answer Notes LastModified by Fooooo Details LastModified Time Tobacco Smoking Status Never Smoker OFELIA SOLIZ [address], [place], [address], [place] [facility] 12/05/2020 15:27:27 Do You Have An Advance Directive? Yes WHATTki Information not available 12/05/2020 What Is Your Code Status? Full Code [employer] Information not available 12/05/2020 Within The Past 12 Months, Has It Happened That The Food You Bought Just Didn't Last And You Didn't Have Money To Get More. No [employer] Information not available 12/05/2020 Within The Past 12 Months, Have You Worried That Your Food Would Run Out Before You Got Money To Buy More. No [employer] Information not available 12/05/2020 Fall Risk: Do You Feel Unsteady When Standing Or Walking? Yes [employer] Information not available 12/05/2020 We Know That How And When People Interact With Friends And Family Can Be Very Different From Person To Person. How Often Do You Have The Opportunity To See Or Talk To People That You Care About And Feel Close To? (Ex: Talking To Friends On The Phone Or Visiting Friends Or Family Or Going To Confucianist Or Club Meetings) 5 Or More Times Per Week [employer] Information not available 12/05/2020 Excessive Alcohol Or Drug Use No [employer] Information not available 12/05/2020 Does This Patient Have A PCP? Yes [employer] Information not available 12/05/2020 We Know From Many Of Our Patients That Covering All Of Their Costs Can Be Difficult At Times. This Can Cause Stress And Impact Health. In The Past Year, Have You Been Unable To Get Any Of The Following When It Was Really Needed? No [employer] Information not available 12/05/2020 What Is Your Housing Situation Today? I Have Housing badSomeecardski Information not available 12/05/2020 Would You Like Help Connecting To Resources? None badSomeecardski Information not available 12/05/2020 Sex: Unknown Functional Status Question Answer Note LastModified by Organizat ion Details LastModified Time Do you use any illicit or recreational drugs? No melchorSomeecardsxiomara Information not available 12/05/2020 What is your level of alcohol consumption? None melchorVivid Logic Information not available 12/05/2020 Mental Status None recorded. Family History Nothing Reported Notes:pt non-verbal unable t o reports family hx Medical History Condition Response Diabetes N Coronary Artery Disease N CHF N Parkinson's Disease N Cancer N Stroke N Dementia N Asthma N COPD N Depression N Hypothyroidism N High Cholesterol Y Rheumatoid Arthritis N Pulmonary Embolism N Hypertension Y A-fib N Osteoporosis N Kidney Disease Y Past Encounters Encounter ID Performer Location Encounter Start Date Encounter Closed Date Diagnosis/Indication Diagnosis SNOMED-CT Code Diagnosis ICD10 Code Diagnosis IMO Codes Diagnosis Note [id number] OFELIA SOLIZ [facility] [address] [place] [address] 12/05/2020 15:18:01 12/12/2020 16:40:49 Cough 81594781 R05.9 Aspiration pneumonia 422 033208 J69.0 Health Concerns Section Related Observation LastModified by Organization Detai ls LastModified Time None Recorded Concern Status LastModified by Organization Details LastModified Time None Recorded Advance Directives Directive Y: Payers Insurance Date Sequence Insurance Name Policy Number Policy Ibarra Covered Member ID Ibarra Member ID Guarantor Name 12/09/2020 1 *SELF PAY* Mingo Henriquez [id number] Mingo Henriquez 12/09/2020 2 [place] [facility] Mingo Henriquez [id number] Mingo Henriquez 12/16/2020 1 MEDICARE B-[place] [facility] Mingo Henriquez [id number] Mingo Henriquez Notes Date Note Type Note Provider Name and Address Organization Details Recorded Time 12/05/2020 text/html 65 y/o non-verbal M with PMHx sig for recurrent aspiration PNA, bipolar disorder, seizure disorder, OCD, pica, hiatal hernia, dysphagia, and nephrogenic DI, new to , who presents w/ shelter staff concerns for possible PNA. HPI obtained from shelter staff who report patient has been coughing/gagging [...] for COVID. OFELIA SOLIZ [address] [place], [address], [place] [facility] 12/08/2020 09:03:28
--- OUTSIDE RECORDS SUMMARY | 2025-01-03 07:40 | XMS_ITS | Clinical Summary ---
Author Organization [facility] Address [address] [place] [phone] Phone Support Name Relationship Address Certified First Assistant House Personal Relationship Unknown Care Team Providers Care Mailmaster Name Role Phone Tomy Rangel MD Primary Care Provider [phone] Social History Tobacco Use Types Packs/Day Years Used Date Smoking Tobacco: Never Assessed Education Answer Date Recorded Are you interested in more education? Not on demetrius e 06/15/2022 Are you concerned about learning? Not on file 06/15/2022 No 06/15/2022 No 06/15/2022 Digital Access Answer Date Recorded No 07/16/2022 No 07/16/2022 No 07/16/2022 Reliable internet access at home? Not on file 07/16/2022 Device with a working camera? Not on file Sex and Gender Information Value Date Recorded Sex Assigned at Not on file Legal Sex Male 9:55 PM EDT Gender Identity Not on file Sexual Orientation Not on file Last Filed Vital Signs Vital Sign Reading Time Taken Comments Blood Pressure 124/80 06/11/2014 1:06 AM EDT Pulse 80 06/11/2014 1:06 AM EDT Temperature - - Respiratory Rate - - Oxygen Saturation - - Inhaled Oxygen Concentration - - Weight 76.8 kg (169 lb 6.4 oz) 06/11/2014 1:06 A M EDT Height 161.9 cm (5' 3.75 ) 06/11/2014 1:06 AM ED T Body Mass Index 29.31 06/11/2014 1:06 AM EDT Plan of Treatment Upcoming Encounters Date Type Department Care Team (Late st Contact Info) Description 03/09/2025 9:30 AM EST Office Visit [facility] [address] [place] [address] Unknown, Unknown, Mabel Woods PA-C [address] [address] [email or web address] Health Maintenance Due Date Last Done Comments LIPID PANEL 1955 DEPRESSION SCREENING 1967 SMOKING Hx and SMOKELESS TOBACCO SCREENING 1968 HEPATITIS C SCREENING 1973 COLOGUARD 2000 COLONOSCOPY 2000 COLORECTAL CANCER SCREENING 2000 FIT TEST 2000 FOBT 2000 SIGMOIDOSCOPY 2000 VIRTUAL COLONOSCOPY 2000 ZOSTER VACCINES (1 of 2) 2005 PNEUMOCOCCAL VACCINES (50+ years) (2 of 2 - PCV) 01/09/2007 01/09/2006 Adult Td,Tdap Booster 06/15/2019 06/14/2009 INFLUENZA VACCINE (#1) 2024 4, 11/12/2012, 11/29/2011, Additional history exists COVID-19 VACCINE (1 - 2024- season) 2024 RSV VACCINE (1 - 1-dose 75+ series) 2030 HEPATITIS A VACCINES Aged Out No long er eligible based on patient's age to complete this topic HIB VACCINES Aged Out No longer eligi ble based on patient's age to complete this topic IPV VACCINES Aged Out No longer eligi ble based on patient's age to complete this topic MENINGOCOCCAL VACCINES (ACWY) Aged Out No longer eligible based on patient's age to complete this topic MENINGOCOCCAL VACCINES (B) Aged Out N o longer eligible based on patient's age to complete this topic Medical Devices Not on file Insurance MEDICARE PART A & [place] & B [facility] MEDIC[facility] PART A & [place] & B [facility]IC[facility] PART A & [place] & B HEALTH MEDICARE PART A & B HEALTH MEDICARE PART A & B [facility] Care Teams Mailmaster Relationship Specialty Start Date End Date Tomy Rangel MD [address] [place] [id number] PCP - General Internal Medicine 02/27/22 Additional Source Comments The information contained in this document represents components of the legal health record. It is not the complete legal health record.[facility]
--- OUTSIDE RECORDS SUMMARY | 2025-01-03 07:41 | XMS_ITS | Encounter Summary ---
Author Organization [facility] Address [address] [place] [phone] Phone Support Name Relationship Address Inter[facility]ur[facility]adi[facility] House Personal Relationship Unknown Care Team Providers Care Assistant Child Care Teacher Name Role Phone Pcp, Unknown Primary Care Provider Tomy Castano MD Primary Care Provider [phone] Reason for Referral * MRI/CAT Scan - Closed Specialty Diagnoses / Procedures Referred By Michael t Referred To Contact Radiology Diagnoses Small bowel anastomotic dilation Procedures CT Abdomen/Pelvis Mabel Waters PA Phone: tel: fax: Referral ID Status Reason Start Date Expiration Date Visits Re quested Visits Authorized [id number] Closed 02/13/2022 02/13/2023 1 1 Encounter Details Date Type Department Care Team (Latest Contact Info) Description 02/13/2022 Transcribe Orders Virtual Department [address] [place] [address] Mabel Waters PA [address] [place] [address] Small bowel anastomotic dilation (Primary Dx) Social History Tobacco Use Types Packs/Day Years [...] Description 03/09/2025 9:30 AM EST Office Visit [facility] [address] [place] [address] Unknown, Unknown, Mabel Woods PA-C [address] [address] [email or web address] documented as of this encounter Results * CT ABDOMEN/PELVIS WITH CONTRAST (02/27/2022 10:56 AM EST) Anatomical Region Laterality Modality Abdomen, Pelvis Computed Tomogra phy 02/28/2022 9:29 AM EST Impressions 02/28/2022 11:09 AM EST 1. Evidence of dissection of much of the colon and distal ileal colonic anastomosis. Decompressed and distended small bowel loops, some small bowel loops filled with fluid and air-fluid levels. No clear transition point and the appearance could be on the basis of dysmotility. A mid partial small bowel obstruction is difficult to exclude. Moderate-large degree of distention of the distal colon which contains a large amount of poorly formed stool. 2. No other evidence of acute pathology in the abdomen or pelvis. 3. Partial imaging of patchy opacity within the right lower lung, including a 7 mm subpleural wedge-shaped opacity, likely atelectasis or inflammatory change in a 5 mm subpleural nodule, most likely benign. A dedicated CT of the chest could be considered. Narrative 02/28/2022 11:[address] ABDOMEN/PELVIS WITH CONTRAST HISTORY: Abdominal distention, small bowel distention, evaluate for obstruction. TECHNIQUE: Multidetector-row CT of the abdomen and pelvis was performed after administration of intravenous contrast using tailored dose modulation techniques. Images were reconstructed in the axial, coronal, and sagittal planes. COMPARISON: None. FINDINGS: Lower Chest: Small amounts of patchy partially imaged opacity within the middle lobe and lower lobe of the right lung, possibly atelectasis or postinflammatory change. This includes a 7 mm subpleural wedge-shaped opacity (series 4, image 2) and 5 mm subpleural right lower lobe nodule (series 4, image 20). Traces of dependent atelectasis within the left lower lobe. Small hiatal hernia. Liver: Normal. No focal lesions. Biliary: No biliary ductal dilatation. Spleen: Normal. No splenomegaly or focal lesions. Pancreas: No evidence of pancreatic masses. Peripancreatic fat well-preserved. Adrenal Glands: No adrenal nodules. Kidneys/Ureters: Kidneys enhance normally and are normal in size. No renal masses. No pelvocaliectasis. Ureters normal in caliber. Bowel: A G-tube is in place. Balloon and tip of G-tube appear to be within the gastric lumen. The appearance of the bowel suggests that there has been resection of the majority of the colon. Evidence of a distal anastomosis possibly involving the distal small bowel and distal colon (series 4, image 144, series 6, image 22). Distal to the anastomosis there is a moderate-large degree of distention of the rectum containing a large amount of poorly formed stool. Immediately proximal to the anastomosis small bowel loops are decompressed. Multiple other decompressed small bowel loops compressed agreed to the left of midline. There is moderate distention of what are presumably small bowel loops in the anterior upper and mid abdomen as well as mildly distended small bowel loops containing fluid and air-fluid levels. No clear transition point is evident. Peritoneum/Retroperitoneum: No evidence of free fluid or free air. No evidence of organized collections. Lymph Nodes: No suspicious lymph nodes. Pelvic Organs/Bladder: No evidence of pelvic masses. Vessels: Abdominal aorta normal in caliber. Portal vein patent. Bones/Soft Tissues: No evidence of abdominal wall masses. No suspicious lytic or blastic lesions within the bones. Procedure Note Oz Long MD - 02/28/2022 CT ABDOMEN/PELVIS WITH CONTRAST HISTORY: Abdominal distention, small bowel distention, evaluate forobstruction. TECHNIQUE: Multidetector-row CT of the abdomen and pelvis was performedafter administration of intravenous contrast using tailored dosemodulation techniques. Images were reconstructed in the axial, coronal,and sagittal planes. COMPARISON: None. FINDINGS: Lower Chest: Small amounts of patchy partially imaged opacity within themiddle lobe and lower lobe of the right lung, possibly atelectasis orpostinflammatory change. This includes a 7 mm subpleural wedge-shapedopacity (series 4, image 2) and 5 mm subpleural right lower lobe nodule(series 4, image 20). Traces of dependent atelectasis within the leftlower lobe. Small hiatal hernia. Liver: Normal. No focal lesions. Biliary: No biliary ductal dilatation. Spleen: Normal. No splenomegaly or focal lesions. Pancreas: No evidence of pancreatic masses. Peripancreatic fatwell-preserved. Adrenal Glands: No adrenal nodules. Kidneys/Ureters: Kidneys enhance normally and are normal in size. No renalmasses. No pelvocaliectasis. Ureters normal in caliber. Bowel: A G-tube is in place. Balloon and tip of G-tube appear to be withinthe gastric lumen. The appearance of the bowel suggests that there hasbeen resection of the majority of the colon. Evidence of a distalanastomosis possibly involving the distal small bowel and distal colon(series 4, image 144, series 6, image 22). Distal to the anastomosis thereis a moderate-large degree of distention of the rectum containing a largeamount of poorly formed stool. Immediately proximal to the anastomosissmall bowel loops are decompressed. Multiple other decompressed smallbowel loops compressed agreed to the left of midline. There is moderatedistention of what are presumably small bowel loops in the anterior upperand mid abdomen as well as mildly distended small bowel loops containingfluid and air-fluid levels. No clear transition point is evident. Peritoneum/Retroperitoneum: No evidence of free fluid or free air. Noevidence of organized collections. Lymph Nodes: No suspicious lymph nodes. Pelvic Organs/Bladder: No evidence of pelvic masses. Vessels: Abdominal aorta normal in caliber. Portal vein patent. Bones/Soft Tissues: No evidence of abdominal wall masses. No suspiciouslytic or blastic lesions within the bones. IMPRESSION: 1. Evidence of dissection of much of the colon and distal ileal colonicanastomosis. Decompressed and distended small bowel loops, some smallbowel loops filled with fluid and air-fluid levels. No clear transitionpoint and the appearance could be on the basis of dysmotility. A midpartial small bowel obstruction is difficult to exclude. Moderate-largedegree of distention of the distal colon which contains a large amount ofpoorly formed stool. 2. No other evidence of acute pathology in the abdomen or pelvis. 3. Partial imaging of patchy opacity within the right lower lung,including a 7 mm subpleural wedge-shaped opacity, likely atelectasis orinflammatory change in a 5 mm subpleural nodule, most likely benign. Adedicated CT of the chest could be considered. us Mabel GILBERT IMG CT ABD/PELVIS Final Res ult documented in this encounter Visit Diagnoses Diagnosis Small bowel anastomotic dilation- Primary Small bowel anastomotic dilation documented in this encounter Care Teams Assistant Child Care Teacher Relationship Specialty Start Date End Date Pcp, Unknown PCP - General 02/15/22 02/26/22 Tomy Rangel MD [address] [place] [id number] PCP - General Internal Medicine 02/27/22 documented as of this encounter Additional Source Comments The information contained in this document represents components of the legal health record. It is not the complete legal health record.[facility]
--- NOTE | 2025-01-03 08:02 | MHC.EDTECH ---
This tech performed intial EKG on PT at 0716. Pt was moving and not redirectable to stop moving. The provider requested a repeat EKG. The 2nd EKG was performed at 0742.
[2025-01-03 08:13] LABS: Alanine Aminotransferase 30 U/L (0-40); Albumin Level 3.2 g/dL (3.5-5.0); Alkaline Phosphatase 122 U/L (39-117); Anion Gap 14 (12-20); Blood Urea Nitrogen 30 mg/dL (9-16); Calcium 9.5 mg/dL (8.4-10.2); Carbon Dioxide 34 mmol/L (22-29); Chloride 95 mmol/L (96-108); Creatinine Clr Calc Pharmacy 40.9; Estimated Glomerular Filt Rate 54; Potassium 4.1 mmol/L (3.3-5.1); Sodium 139 mmol/L (135-145); Total Protein 8.3 g/dL (6.5-8.0)
[2025-01-03 08:21] LABS: NRBC Abs Auto 0.000 X10*3/uL (0.0-0.012); NRBC Pct Auto 0.0 /100WBC (0.0-0.2); PLT CLUMP 1; SCAN SMEAR FLAG 1
[2025-01-03 08:23] LABS: Hematocrit 36.6 % (42.0-52.0); Hemoglobin 12.2 g/dl (14.0-18.0); Imm Gran Abs Auto 0.04 X10*3/uL (0.00-0.03); Imm Gran Pct Auto 0.4 % (0.0-0.4); Lymphocytes Absolute Auto 0.9 X10*3/uL (1.2-4.9); Mean Corpuscular HGB Conc 33.3 g/dl (31.0-36.0); Mean Corpuscular Hemoglobin 33.7 pg (27.0-33.0); Mean Corpuscular Volume 101.1 fL (80.0-98.0); Red Blood Count 3.62 X10*6/uL (4.60-5.80)
[2025-01-03 08:27] LABS: Platelet Count 120 X10*3/uL (160-400); White Blood Count 10.3 X10*3/uL (4.8-10.8)
[2025-01-03 08:38] LABS: Aspartate Amino Transferase 58 U/L (5-37)
[2025-01-03 09:38] LABS: Reflex Lactate? Lactic Acid Added
[2025-01-03 09:42] LABS: Appearance Urine Clear; Glucose Urine UA Negative (Negative); PH >= 9.0 (5.0-9.0); Specific Gravity - Urine 1.010 (1.005-1.025)
[2025-01-03 10:45] LABS: ~Lactic Acid-LAB USE ONLY 1.8 mmol/L (0.5-2.0)
[2025-01-03 11:31] VITALS: BP 112/53; PULSE 88; RESP 16; O2SAT 93
[2025-01-03 12:10] VITALS: BP 112/53; PULSE 88; RESP 16; TEMP -17.7; TEMP 0; O2SAT 93
== END 2025-01-03 12:10 | disposition home or self-care (01) ==
PROVIDERS: Emergency Provider Emergency Medicine; PCP Internal Medicine
DX: E86.0 Dehydration (principal); F79 Unspecified intellectual disabilities; R13.10 Dysphagia, unspecified; F84.0 Autistic disorder; G40.909 Epilepsy, unspecified, not intractable, without status epilepticus; I10 Essential (primary) hypertension; Z93.1 Gastrostomy status; Z74.01 Bed confinement status
CPT/HCPCS: 36415; 71045; 80053; 81003; 83605; 85025; 87040; 93005; 96360; 99284; 99285

== ENCOUNTER → 2025-01-03 07:08 | Outpatient (BNV) | payer MEDICARE, MEDICAID, SELFPAY | PROVIDERS: Emergency Provider Emergency Medicine; Visit Provider Internal Medicine Cardiovascular Disease | DX: R94.31 Abnormal electrocardiogram [ECG] [EKG] (principal); R41.82 Altered mental status, unspecified | CPT/HCPCS: 93010 ==